=== PATIENT | male | born 1950 | race American Indian/Alaskan Native ===

== ENCOUNTER 2017-01-24 03:33 | Emergency (ER) | payer SELFPAY ==
--- NOTE | 2017-01-24 04:20 | XRay Report ---
FINAL REPORT PROCEDURE: XR CHEST ROUTINE 2V TECHNIQUE: PA and lateral chest radiographs were obtained. CPT 08374 HISTORY: swelling...GOPI COMPARISON: No prior studies are available for comparison. FINDINGS: Heart: Normal. Mediastinum/Vessels: Multiple sternal wires are present. Lungs/Pleural space: The lungs are clear without infiltrate, effusion or pneumothorax. Bony thorax: No acute osseous abnormality. Other: IMPRESSION: There is no evidence of an acute cardiopulmonary process..
[2017-01-24 04:45] LABS: Basophils % (Auto) 0.7 % (0.0-1.8); Eosinophils % (Auto) 1.3 % (0.0-4.3); Hemoglobin 15.1 gm/dl (11.8-15.2); Mean Corpuscular HGB Conc 34 % (32-34); Mean Corpuscular Hemoglobin 33 pg (28-32); Mean Corpuscular Volume 99 fl (84-94); Platelet Count 144 K/mm3 (140-440); Red Blood Count 4.54 M/mm3 (3.65-5.03); White Blood Count 4.8 K/mm3 (4.5-11.0)
[2017-01-24 05:05] LABS: Alanine Aminotransferase 29 units/L (7-56); Albumin 4.3 g/dL (3.9-5); Albumin/Globulin Ratio 0.9 %; Alkaline Phosphatase 116 units/L (35-129); Anion Gap 21 mmol/L; BUN/Creatinine Ratio 12.72; Blood Urea Nitrogen 14 mg/dL (9-20); Calcium 10.1 mg/dL (8.4-10.2); Carbon Dioxide 26 mmol/L (22-30); Glucose 105 mg/dL (75-100); Potassium 4.2 mmol/L (3.6-5.0); Sodium 136 mmol/L (137-145); Total Protein 9.2 g/dL (6.3-8.2)
[2017-01-24] MEDS ORDERED: DELTASONE PO ONE (16:45)
[2017-01-24] MEDS ORDERED: DUONEB *Not for PRN Use IH ONE (16:45)
--- NOTE | 2017-01-24 16:47 | Emergency Department Report ---
HPI - General Chief Complaint: Dyspnea/Respdistress Time Seen by Provider: 01/24/17 16:39 - HPI HPI: This is a 66 year-old male presents the emergency department with complaint of a one to 2 day history of some shortness of breath and wheezing. The patient also says that the night before last he had some swelling of his tongue that made it feel "heavy" and that he had some trouble swallowing at that time. However the majority of his symptoms have improved if not resolved. He did not take anything for his symptoms presentation. He is a tobacco smoker. There is some mention on his chart of possible diagnosis of COPD the patient is not aware of this. He does not have any inhaler or breathing machine at home. He gets his primary care through the [facility] and last saw them about 3 months ago. He denies any fever, chest pain, back pain, nausea, vomiting or diaphoresis. No recent travel or sick contacts at home. ED Past Medical Hx - Past Medical History Previous Medical History?: Yes Hx Hypertension: Yes Hx COPD: Yes - Surgical History Past Surgical History?: Yes Additional Surgical History: valve replacement - Social History Smoking Status: Current Every Day Smoker Substance Use Type: Alcohol - Medications Home Medications: Home Medications Medication Instructions Recorded Confirmed Last Taken Type HYDROcodone/APAP 5-325 [[place] 1 each PO Q6HR PRN #20 tablet 01/23/14 Unknown Rx 5/325] ALBUTEROL Inhaler [ProAir HFA 2 puff IH QID PRN #1 inhalation 01/24/17 Unknown Rx Inhaler] Benzonatate [Tessalon Perles] 100 mg PO Q8HR PRN #20 capsule 01/24/17 Unknown Rx predniSONE [Deltasone] 20 mg PO QDAY #4 tab 01/24/17 Unknown Rx ED Review of Systems ROS: Stated complaint: DIFFICULTY SWALLOWING Other details as noted in HPI Comment: All other systems reviewed and negative Constitutional: denies: chills, fever Eyes: denies: eye pain, eye discharge, vision change ENT: denies: ear pain, throat pain Respiratory: cough, shortness of breath, wheezing Cardiovascular: denies: chest pain, palpitations, edema Gastrointestinal: denies: abdominal pain, nausea, diarrhea Genitourinary: denies: urgency, dysuria Musculoskeletal: denies: back pain, joint swelling, arthralgia Skin: denies: rash, lesions Neurological: denies: headache, weakness, paresthesias Physical Exam - Physical Exam Vital Signs: Vital Signs 01/24/17 01/24/17 03:43 16:33 Temperature 98.4 F Pulse Rate 95 H 65 Respiratory 18 16 Rate Blood Pressure 109/75 Blood Pressure 135/84 [Left] O2 Sat by Pulse 97 100 Oximetry Physical Exam: GENERAL: The patient is well-developed well-nourished. HENT: Normocephalic. Atraumatic. Patient has moist mucous membranes. EYES: Extraocular motions are intact. Pupils equal reactive to light bilaterally. NECK: Supple. Trachea is midline. CHEST/LUNGS: Mild expiratory wheezing. No tachypnea or accessory muscle use. A productive sounding cough is heard intermittently during examination. There is no respiratory distress noted. HEART/CARDIOVASCULAR: Regular. There is no tachycardia. There is no gallop rub or murmur. ABDOMEN: Abdomen is soft, nontender. Patient has normal bowel sounds. There is no abdominal distention. SKIN: Skin is warm and dry. No edema. NEURO: The patient is awake, alert, and oriented. The patient is cooperative. The patient has no focal neurologic deficits. The patient has normal speech. MUSCULOSKELETAL: There is no tenderness or deformity. There is no limitation range of motion. There is no evidence of acute injury. ED Course Vital Signs 01/24/17 01/24/17 03:43 16:33 Temperature 98.4 F Pulse Rate 95 H 65 Respiratory 18 16 Rate Blood Pressure 109/75 Blood Pressure 135/84 [Left] O2 Sat by Pulse 97 100 Oximetry ED Medical Decision Making - Lab Data Result diagrams: 01/24/17 04:29 01/24/17 04:29 - Radiology Data Radiology results: image reviewed interpreted by me: Chest x-ray does not show any acute process. There are no pleural effusions, obvious pneumonia and there is no pneumothorax. - Medical Decision Making This is a 66-year-old male who is a current tobacco smoker who presents with some complaints of shortness of breath and possible tongue swelling that have since resolved if not greatly improved but he came to the emergency department to "find out what happened." He does not appear to be in any respiratory distress. He does not appear to have any current angioedema or any anaphylaxis. Vital signs stable throughout his ED course. Labs unremarkable. Chest x-ray does not show any pneumonia, pleural effusions or any acute process. He was given a breathing treatment and a dose of steroids and upon reevaluation he is feeling greatly improved. He appears safe for discharge home at this time. He has follow-up through the [facility]. He has been given anticough medication, steroids and an albuterol inhaler and has been encouraged to return to the ER with any worsening of symptoms or any acute distress. - Differential Diagnosis COPD, asthma, pneumonia, CHF Critical Care Time: No Critical care attestation.: If time is entered above; I have spent that time in minutes in the direct care of this critically ill patient, excluding procedure time. ED Disposition Clinical Impression: COPD with exacerbation, Bronchospasm, Tobacco abuse Disposition: TO HOME OR SELFCARE Is pt being admited?: No Condition: Stable Instructions: How to Stop Smoking (ED), Chronic Obstructive Pulmonary Disease ( ED) Additional Instructions: Please follow-up with your primary care physician soon as possible. Return to the emergency Department with any worsening of your symptoms or any acute distress. Please try and quit smoking. Prescriptions: ALBUTEROL Inhaler [ProAir HFA Inhaler] 2 puff IH QID PRN #1 inhalation PRN Reason: Shortness Of Breath Benzonatate [Tessalon Perles] 100 mg PO Q8HR PRN #20 capsule PRN Reason: Cough predniSONE [Deltasone] 20 mg PO QDAY #4 tab Referrals: PRIMARY CARE, [Primary Care Provider] - [facility] Time of Disposition: 18:25
--- NOTE | 2017-01-24 18:15 | Ultrasound Report ---
FINAL REPORT PROCEDURE: US ABDOMEN LIMITED TECHNIQUE: Real-time sonography was performed of the right upper quadrant with image documentation. CPT 95501 HISTORY: Hyperbilirubinemia COMPARISON: No prior studies are available for comparison. FINDINGS: Exam of the right upper quadrant shows multiple moderate to large gallstones within the gallbladder casting dense acoustic shadows.. Gallbladder is mildly contracted. Gallbladder wall is not thickened. No ascites is seen. Common bile duct is normal caliber measuring 3.4 millimeters. The intrahepatic ducts are not distended. Liver echogenicity appear normal. Visualized portions of the pancreas are unremarkable. The right kidney showed no abnormalities measuring 10.4 centimeters in greatest length.. IMPRESSION: Cholelithiasis. No other abnormalities are seen.
[2017-01-24 18:28] VITALS: BP 115/77
== END 2017-01-24 18:40 | disposition home or self-care (01) ==
LOC: ED 03:33
DX: J44.1 Chronic obstructive pulmonary disease with (acute) exacerbation (principal); F17.200 Nicotine dependence, unspecified, uncomplicated; J98.01 Acute bronchospasm; I10 Essential (primary) hypertension
CPT/HCPCS: 36415; 71020; 76705; 80053; 85025; 94640; 99284; J7512

== ENCOUNTER 2017-11-05 11:13 | Inpatient (IN) | payer MEDICARE, OTHER ==
[2017-11-05] MEDS ORDERED: NACL 0.9% 1000 ML 1,000 ML IV ONE ×4 (12:19→14:00)
--- NOTE | 2017-11-05 12:23 | Emergency Department Report ---
ED Shortness of Breath HPI - General Chief Complaint: Dyspnea/Respdistress Stated Complaint: SHORTNESS OF BREATH Time Seen by Provider: 11/05/17 12:19 Source: patient, EMS Mode of arrival: Stretcher Limitations: No Limitations - History of Present Illness Initial Comments: Patient is a 67-year-old male who presents to emergency room with complaints of shortness of breath and abdominal pain 2 days. Patient states he does get discharged from [place] this week for diastolic CHF patient is currently on several toe for PE. Patient states she took a laxative yesterday because of abdominal pain and started feeling shortness of breath or abdominal pain weakness and dizziness. Patient states all the symptoms are worsening. Patient called EMS to be transported to the ER. Patient was found to be hypotensive. . Patient states his weakness is worsening MD Complaint: shortness of breath -: Sudden Severity: severe Pain Scale: 10 Quality: sharp Consistency: constant Improves With: rest, upright position Worsens With: eating, medication, movement Known History Of: congestive heart failure - Related Data Home Medications Medication Instructions Recorded Confirmed Last Taken Aspirin [Aspirin BABY CHEW TAB] 81 mg PO DAILY 11/05/17 11/05/17 Unknown Bisoprolol [Zebeta] 5 mg PO DAILY 11/05/17 11/05/17 Unknown Pantoprazole Sodium 40 mg PO QAM 11/05/17 11/05/17 Unknown Potassium Chloride 10 meq PO DAILY 11/05/17 11/05/17 Unknown Rivaroxaban [Xarelto] 20 mg PO DAILY 11/05/17 11/05/17 Unknown Torsemide [Demadex] 20 mg PO DAILY 11/05/17 11/05/17 Unknown Allergies Allergy/AdvReac Type Severity Reaction Status Date / Time No Known Allergies Allergy Verified 01/23/14 23:59 ED Review of Systems ROS: Stated complaint: SHORTNESS OF BREATH Other details as noted in HPI Constitutional: denies: chills, fever Eyes: denies: eye pain, eye discharge, vision change ENT: denies: ear pain, throat pain Respiratory: shortness of breath, SOB with exertion, SOB at rest. denies: cough , wheezing Cardiovascular: denies: chest pain, palpitations Endocrine: no symptoms reported Gastrointestinal: abdominal pain. denies: nausea, diarrhea Genitourinary: denies: urgency, dysuria Musculoskeletal: denies: back pain, joint swelling, arthralgia Skin: denies: rash, lesions Neurological: denies: headache, weakness, paresthesias Psychiatric: denies: anxiety, depression Hematological/Lymphatic: denies: easy bleeding, easy bruising ED Past Medical Hx - Past Medical History Previous Medical History?: Yes Hx Hypertension: Yes Hx Congestive Heart Failure: Yes Hx COPD: Yes Additional medical history: MITRAL VALVE STENOSIS, CHF, GERD, HCV - Surgical History Past Surgical History?: Yes Additional Surgical History: valve replacement - Family History Family history: hypertension - Social History Smoking Status: Current Every Day Smoker Substance Use Type: None - Medications Home Medications: Home Medications Medication Instructions Recorded Confirmed Last Taken Type Aspirin [Aspirin BABY CHEW TAB] 81 mg PO DAILY 11/05/17 11/05/17 Unknown History Bisoprolol [Zebeta] 5 mg PO DAILY 11/05/17 11/05/17 Unknown History Pantoprazole Sodium 40 mg PO QAM 11/05/17 11/05/17 Unknown History Potassium Chloride 10 meq PO DAILY 11/05/17 11/05/17 Unknown History Rivaroxaban [Xarelto] 20 mg PO DAILY 11/05/17 11/05/17 Unknown History Torsemide [Demadex] 20 mg PO DAILY 11/05/17 11/05/17 Unknown History ED Physical Exam - General Limitations: No Limitations General appearance: alert, in no apparent distress - Head Head exam: Present: atraumatic, normocephalic - Eye Eye exam: Present: normal appearance, PERRL, EOMI, other - ENT ENT exam: Present: mucous membranes moist - Neck Neck exam: Present: normal inspection - Respiratory Respiratory exam: Present: normal lung sounds bilaterally. Absent: respiratory distress - Cardiovascular Cardiovascular Exam: Present: regular rate, normal rhythm. Absent: systolic murmur, diastolic murmur, rubs, gallop - GI/Abdominal GI/Abdominal exam: Present: soft, tenderness (gen ttp), normal bowel sounds - Rectal Rectal exam: Present: normal rectal tone, heme (+) stool, black stool, hemorrhoids, prostate enlargement - Extremities Exam Extremities exam: Present: normal inspection, full ROM - Back Exam Back exam: Present: normal inspection - Neurological Exam Neurological exam: Present: alert, oriented X3 - Psychiatric Psychiatric exam: Present: normal affect, normal mood - Skin Skin exam: Present: warm, dry, intact, normal color. Absent: rash ED Course Vital Signs 11/05/17 11/05/17 11/05/17 12:01 12:08 12:16 Temperature 98.4 F Pulse Rate 73 100 H 99 H Respiratory 21 32 H 21 Rate Blood Pressure 85/49 76/41 Blood Pressure [Left] O2 Sat by Pulse 99 97 98 Oximetry 11/05/17 11/05/17 11/05/17 12:32 12:43 12:45 Temperature Pulse Rate 99 H 97 H 99 H Respiratory 28 H 18 29 H Rate Blood Pressure 73/48 Blood Pressure 76/41 [Left] O2 Sat by Pulse Oximetry 11/05/17 11/05/17 11/05/17 13:00 13:24 13:44 Temperature 97.9 F Pulse Rate 95 H 96 H Respiratory 33 H Rate Blood Pressure 78/51 73/48 Blood Pressure [Left] O2 Sat by Pulse 96 Oximetry 11/05/17 11/05/17 11/05/17 13:45 13:47 13:57 Temperature Pulse Rate 93 H 76 Respiratory 23 22 Rate Blood Pressure 88/61 Blood Pressure 85/41 88/61 [Left] O2 Sat by Pulse 97 97 Oximetry 11/05/17 11/05/17 11/05/17 14:00 14:15 14:17 Temperature Pulse Rate 94 H Respiratory 29 H 25 H Rate Blood Pressure 67/36 72/41 Blood Pressure 77/51 [Left] O2 Sat by Pulse 100 Oximetry 11/05/17 11/05/17 11/05/17 14:30 14:45 14:58 Temperature 97.4 F L Pulse Rate 94 H Respiratory 26 H 23 Rate Blood Pressure 79/46 79/47 76/46 Blood Pressure [Left] O2 Sat by Pulse 100 94 Oximetry 11/05/17 11/05/17 11/05/17 15:00 15:10 15:19 Temperature 97.5 F L Pulse Rate 98 H 95 H Respiratory 21 23 Rate Blood Pressure 85/46 81/50 Blood Pressure 85/50 [Left] O2 Sat by Pulse 100 Oximetry - Reevaluation(s) Reevaluation #1: Patient found to be severely anemic and have an elevated lactic acid. We will run sepsis protocol. 11/05/17 13:02 Reevaluation #2: After aggressive hydration and patient now on pressors lactic acid is higher. Patient's PRBCs and now ready and we will commence transfusion. 11/05/17 15:00 Reevaluation #3: Hospitalist contacted for admission. Hospitalist, Dr corea to assume care of the patient. Discussed plan of care with patient and patient agrees to admission and plan of care. Discussed all results with patient 11/05/17 15:12 - Consultations Consultation #1: GI - dr grewal. consulted for eval and tx of gi bleed/ 11/05/17 15:20 ED Medical Decision Making - Lab Data Result diagrams: 11/05/17 12:16 11/05/17 12:16 - EKG Data -: EKG Interpreted by Sc EKG shows normal: sinus rhythm, axis, intervals, QRS complexes, ST-T waves Rate: normal - EKG Data Interpretation: [facility] Critical Care Time: Yes Critical care attestation.: If time is entered above; I have spent that time in minutes in the direct care of this critically ill patient, excluding procedure time. Critical Care Time: 55 minutes spent with patient for critical care time ED Disposition Clinical Impression: Lactic acidosis, Melena, Anemia, Acute renal insufficiency, Dizziness, Severe anemia Hypotension Qualifiers: Hypotension type: unspecified hypotension type Qualified Code(s): I95.9 - Hypotension, unspecified GI bleed Qualifiers: GI bleed type/associated pathology: melena Qualified Code(s): K92.1 - Melena Disposition: -09 OP ADMIT IP TO THIS HOSP Is pt being admited?: Yes Does the pt Need Aspirin: No Condition: Critical Time of Disposition: 13:57
[2017-11-05 12:40] LABS: Basophils # (Auto) 0.1 K/mm3 (0.0-0.1); Basophils % (Auto) 0.6 % (0.0-1.8); Eosinophils % (Auto) 0.2 % (0.0-4.3); Hemoglobin 6.3 gm/dl (11.8-15.2); Lymphocytes # (Auto) 1.3 K/mm3 (1.2-5.4); Lymphocytes % (Auto) 7.5 % (13.4-35.0); Mean Corpuscular HGB Conc 32 % (32-34); Mean Corpuscular Hemoglobin 35 pg (28-32); Mean Corpuscular Volume 108 fl (84-94); Monocytes # (Auto) 1.6 K/mm3 (0.0-0.8); Monocytes % (Auto) 9.5 % (0.0-7.3); Platelet Count 307 K/mm3 (140-440); Red Blood Count 1.82 M/mm3 (3.65-5.03); Red Cell Distribution Width 16.6 % (13.2-15.2)
[2017-11-05 12:42] LABS: Hematocrit 19.7 % (35.5-45.6)
[2017-11-05 12:49] LABS: Albumin 3.6 g/dL (3.9-5); Calcium 8.9 mg/dL (8.4-10.2)
[2017-11-05 12:57] LABS: Bilirubin,Urine NEG (Negative); Blood,Urine NEG (Negative); Color,Urine Yellow (Yellow); Hyaline Casts,Urine 29 /LPF; Protein,Urine <15 mg/dL mg/dL (Negative)
[2017-11-05] MEDS ORDERED: ZOSYN/NS 2.25 GM/50ML 2.25 GM/50 ML BAG IV SCH (13:00)
[2017-11-05] MEDS ORDERED: ZOFRAN ONE (13:01)
[2017-11-05] MEDS ORDERED: ZOFRAN IV ONE (13:10)
[2017-11-05 13:20] LABS: Creatine Kinase MB 1.3 ng/mL (0.0-4.0)
[2017-11-05] MEDS ORDERED: NACL 0.9% 500 ML 500 ML IV ONE ×2 (14:03→21:06)
--- NOTE | 2017-11-05 14:03 | Cat Scan Report ---
FINAL REPORT EXAM: CT ABDOMEN PELVIS WO CON HISTORY: abd pain TECHNIQUE: CT examination of the ABDOMEN without IV contrast CT examination of the PELVIS without IV contrast PRIORS: Abdomen ultrasound 01/24/2017 FINDINGS: Small bilateral pleural effusions layer posteriorly with adjacent slight atelectasis and/or pneumonitis. Cardiac density may be a prosthetic valve. Coronary artery calcification. Degenerative change in the regional skeleton. No evidence of acute fracture. Borderline hepatomegaly with sagittal dimension of 17.7 cm. No evidence of focal liver lesion. Multiple calcified and gaseous gallstones in the gallbladder lumen. No evidence of other biliary pathology. Normal noncontrast appearance of the adrenals, pancreas, and spleen. Normal caliber abdominal aorta with severe calcified atherosclerotic plaque in the aorta and its branches. Normal caliber IVC. The exam is limited from a paucity of natural intra-abdominal fat, and lack of contrast, to separate adjacent organs and structures. The ureters are largely obscured by adjacent soft tissues. Intestinal loops are also difficult to visualize separately. No renal calculus or hydronephrosis. Intact abdominal wall. No visible retroperitoneal adenopathy. No visible mesenteric mass. Normal-appearing stomach and duodenum. No definite small bowel distention in the abdomen and pelvis. Scattered prominence of small bowel gas, primarily in the pelvis, may reflect paralytic ileus. No pelvic free fluid. Normal-appearing terminal ileum and visible portion of the appendix. Enlarged prostate with mass effect on the urinary bladder base. No focal urinary bladder abnormality. Normal-appearing seminal vesicles. Scattered prominence of stool from cecum to rectum suggestive of constipation. Prominent gas in rectum, sigmoid colon, transverse colon, and cecum may reflect paralytic ileus. IMPRESSION: Small bilateral pleural effusions layering posteriorly with adjacent slight atelectasis and/or pneumonitis Prominent bowel gas throughout small and large intestine suspicious for paralytic ileus and/or enteritis Coronary artery calcification Borderline hepatomegaly without focal lesion Cholelithiasis Enlarged prostate with mass effect on the urinary bladder base Prominent stool may reflect constipation
[2017-11-05 14:22] LABS: INR 2.96 (0.87-1.13)
[2017-11-05] MEDS ORDERED: LEVOPHED DRIP 4 MG/NS 250 ML 4 MG/250 ML BAG IV ONE ×2 (14:25→14:28)
[2017-11-05 17:24] LABS: Hematocrit 23.4 % (35.5-45.6); Hemoglobin 7.6 gm/dl (11.8-15.2)
--- NOTE | 2017-11-05 19:50 | History and Physical Report ---
History of Present Illness Date of examination: 11/05/17 Date of admission: 11/05/17 15:40 Chief complaint: Chief complaint: Black tarry stools for 2 days History of present illness: History of Present Illness: 67-year-old male presents for emergency room because of black stools and shortness of breath for 2 days. Patient was recently treated at [facility] for diastolic heart failure and pulmonary embolism. Patient is on XARELTO for the pulmonary embolism. Patient noticed black stools for the last 2 days. Patient is a poor historian. Patient complains of dizziness and weakness especially was standing. No chest pain. History of CHF and pulmonary embolism and hypertension present. No recent travel. Past Medical History Previous Medical History?: Yes Hx Hypertension: Yes Hx Congestive Heart Failure: Yes Hx COPD: Yes Additional medical history: MITRAL VALVE STENOSIS, CHF, GERD, HCV Surgical History Past Surgical History?: Yes Additional Surgical History: valve replacement Family History Family history: hypertension Social History Smoking Status: Current Every Day Smoker Substance Use Type: None Medications Home Medications: Home Medications Medication Instructions Recorded Confirmed Last Taken Type Aspirin [Aspirin BABY CHEW TAB] 81 mg PO DAILY 11/05/17 11/05/17 Unknown History Bisoprolol [Zebeta] 5 mg PO DAILY 11/05/17 11/05/17 Unknown History Pantoprazole Sodium 40 mg PO QAM 11/05/17 11/05/17 Unknown History Potassium Chloride 10 meq PO DAILY 11/05/17 11/05/17 Unknown History Rivaroxaban [Xarelto] 20 mg PO DAILY 11/05/17 11/05/17 Unknown History Torsemide [Demadex] 20 mg PO DAILY 11/05/17 11/05/17 Unknown History Review of Systems ROS: Stated complaint: SHORTNESS OF BREATH Other details as noted in HPI Constitutional: denies: chills, fever Eyes: denies: eye pain, eye discharge, vision change ENT: denies: ear pain, throat pain Respiratory: shortness of breath, SOB with exertion, SOB at rest. denies: cough , wheezing Cardiovascular: denies: chest pain, palpitations Endocrine: no symptoms reported Gastrointestinal: abdominal pain. denies: nausea, diarrhea Genitourinary: denies: urgency, dysuria Musculoskeletal: denies: back pain, joint swelling, arthralgia Skin: denies: rash, lesions Neurological: denies: headache, weakness, paresthesias Psychiatric: denies: anxiety, depression Hematological/Lymphatic: denies: easy bleeding, easy bruising Medications and Allergies Allergies Allergy/AdvReac Type Severity Reaction Status Date / Time No Known Allergies Allergy Verified 01/23/14 23:59 Home Medications Medication Instructions Recorded Confirmed Last Taken Type Aspirin [Aspirin BABY CHEW TAB] 81 mg PO DAILY 11/05/17 11/05/17 Unknown History Bisoprolol [Zebeta] 5 mg PO DAILY 11/05/17 11/05/17 Unknown History Pantoprazole Sodium 40 mg PO QAM 11/05/17 11/05/17 Unknown History Potassium Chloride 10 meq PO DAILY 11/05/17 11/05/17 Unknown History Rivaroxaban [Xarelto] 20 mg PO DAILY 11/05/17 11/05/17 Unknown History Torsemide [Demadex] 20 mg PO DAILY 11/05/17 11/05/17 Unknown History Active Meds: Active Medications Norepinephrine (Levophed Drip 4 Mg/Ns 250 Ml) 4 mg in 250 mls @ 7.5 mls/hr IV TITR ONE; Protocol Stop: 11/06/17 23:44 Last Titration: 11/05/17 15:35 Dose: 10 mcg/min, 37.5 mls/hr Exam - Constitutional Vitals: Temp Pulse Resp BP Pulse Ox 97.5 F L 100 H 21 98/64 100 11/05/17 16:12 11/05/17 17:45 11/05/17 17:45 11/05/17 17:45 11/05/17 17:45 General appearance: Present: no acute distress, well-nourished - EENT Eyes: Present: PERRL ENT: hearing intact, clear oral mucosa - Neck Neck: Present: supple, normal ROM - Respiratory Respiratory effort: normal Respiratory: bilateral: CTA - Cardiovascular Rhythm: regular Heart Sounds: Present: S1 & S2. Absent: rub, click - Extremities Extremities: no ischemia, pulses symmetrical, No edema Peripheral Pulses: within normal limits - Abdominal General gastrointestinal: Present: soft, non-tender, non-distended, normal bowel sounds, other (occult blood positive) Male genitourinary: Present: normal - Rectal Rectal Exam: stool bloody (occult blood positive) - Integumentary Integumentary: Present: clear, warm, dry - Musculoskeletal Musculoskeletal: gait normal, strength equal bilaterally - Psychiatric Psychiatric: appropriate mood/affect, intact judgment & insight - Neurologic Neurologic: CNII-XII intact, moves all extremities - Allied Health Allied health notes reviewed: nursing, case management Results - Labs CBC & Chem 7: 11/05/17 17:04 11/05/17 12:16 Labs: Laboratory Last Values WBC 17.0 K/mm3 (4.5-11.0) H 11/05/17 12:16 RBC 1.82 M/mm3 (3.65-5.03) L 11/05/17 12:16 Hgb 7.6 gm/dl (11.8-15.2) L 11/05/17 17:04 Hct 23.4 % (35.5-45.6) L 11/05/17 17:04 MCV 108 fl (84-94) H 11/05/17 12:16 MCH 35 pg (28-32) H 11/05/17 12:16 MCHC 32 % (32-34) 11/05/17 12:16 RDW 16.6 % (13.2-15.2) H 11/05/17 12:16 Plt Count 307 K/mm3 (140-440) 11/05/17 12:16 Lymph % (Auto) 7.5 % (13.4-35.0) L 11/05/17 12:16 [place] % (Auto) 9.5 % (0.0-7.3) H 11/05/17 12:16 Eos % (Auto) 0.2 % (0.0-4.3) 11/05/17 12:16 Baso % (Auto) 0.6 % (0.0-1.8) 11/05/17 12:16 Lymph # 1.3 K/mm3 (1.2-5.4) 11/05/17 12:16 [place] # 1.6 K/mm3 (0.0-0.8) H 11/05/17 12:16 Eos # 0.0 K/mm3 (0.0-0.4) 11/05/17 12:16 Baso # 0.1 K/mm3 (0.0-0.1) 11/05/17 12:16 Seg Neutrophils % 82.2 % (40.0-70.0) H 11/05/17 12:16 Seg Neutrophils # 14.0 K/mm3 (1.8-7.7) H 11/05/17 12:16 PT 32.9 Sec. (12.2-14.9) H 11/05/17 12:23 INR 2.96 (0.87-1.13) H 11/05/17 12:23 APTT 39.0 Sec. (24.2-36.6) H 11/05/17 12:23 D-Dimer 136.11 ng/mlDDU (0-234) 11/05/17 12:23 VBG pH 7.371 (7.320-7.420) 11/05/17 13:03 Sodium 131 mmol/L (137-145) L 11/05/17 12:16 Potassium 4.7 mmol/L (3.6-5.0) 11/05/17 12:16 Chloride 91.5 mmol/L (98-107) L 11/05/17 12:16 Carbon Dioxide 23 mmol/L (22-30) 11/05/17 12:16 Anion Gap 21 mmol/L 11/05/17 12:16 BUN 77 mg/dL (9-20) H 11/05/17 12:16 Creatinine 1.9 mg/dL (0.8-1.5) H 11/05/17 12:16 Estimated GFR 43 ml/min 11/05/17 12:16 BUN/Creatinine Ratio 41 % 11/05/17 12:16 Glucose 146 mg/dL (75-100) H 11/05/17 12:16 Lactic Acid 3.40 mmol/L (0.7-2.0) H* 11/05/17 17:04 Calcium 8.9 mg/dL (8.4-10.2) 11/05/17 12:16 Total Bilirubin 2.40 mg/dL (0.1-1.2) H 11/05/17 12:16 AST 50 units/L (5-40) H 11/05/17 12:16 ALT 34 units/L (7-56) 11/05/17 12:16 Alkaline Phosphatase 85 units/L (35-129) 11/05/17 12:16 Total Creatine Kinase 39 units/L (55-170) L 11/05/17 12:23 CK-MB (CK-2) 1.3 ng/mL (0.0-4.0) 11/05/17 12:23 CK-MB (CK-2) Rel Index 3.3 (0-4) 11/05/17 12:23 Troponin T < 0.010 ng/mL (0.00-0.029) 11/05/17 12:23 Total Protein 7.2 g/dL (6.3-8.2) 11/05/17 12:16 Albumin 3.6 g/dL (3.9-5) L 11/05/17 12:16 Albumin/Globulin Ratio 1.0 % 11/05/17 12:16 Urine Color Yellow (Yellow) 11/05/17 12:46 Urine Turbidity Clear (Clear) 11/05/17 12:46 Urine pH 5.0 (5.0-7.0) 11/05/17 12:46 Ur Specific [place] 1.010 (1.003-1.030) 11/05/17 12:46 Urine Protein <15 mg/dl mg/dL (Negative) 11/05/17 12:46 Urine Glucose (UA) Neg mg/dL (Negative) 11/05/17 12:46 Urine Ketones Neg mg/dL (Negative) 11/05/17 12:46 Urine Blood Neg (Negative) 11/05/17 12:46 Urine Nitrite Neg (Negative) 11/05/17 12:46 Urine Bilirubin Neg (Negative) 11/05/17 12:46 Urine Urobilinogen 2.0 mg/dL (<2.0) 11/05/17 12:46 Ur Leukocyte Esterase Neg (Negative) 11/05/17 12:46 Urine WBC (Auto) 1.0 /HPF (0.0-6.0) 11/05/17 12:46 Urine RBC (Auto) 1.0 /HPF (0.0-6.0) 11/05/17 12:46 Hyaline Casts 29 /LPF 11/05/17 12:46 Blood Type B POSITIVE 11/05/17 13:03 Antibody Screen Negative 11/05/17 13:03 Crossmatch See Detail 11/05/17 13:03 - Imaging and Cardiology EKG: report reviewed (normal sinus rhythm and left atrial enlargement heart rate of 97, direct LVH by voltage criteria are H also EKG interpreted by me) Imaging and Cardiology: IMPRESSION: Small bilateral pleural effusions layering posteriorly with adjacent slight atelectasis and/or pneumonitis Prominent bowel gas throughout small and large intestine suspicious for paralytic ileus and/or enteritis Coronary artery calcification Borderline hepatomegaly without focal lesion Cholelithiasis Enlarged prostate with mass effect on the urinary bladder base Prominent stool may reflect constipation Assessment and Plan Advance Directives: Yes (full code) VTE prophylaxis?: Mechanical Plan of care discussed with patient/family: Yes - Patient Problems (1) Lower gastrointestinal hemorrhage Current Visit: Yes Status: Acute Plan to address problem: Patient initiated on 1 unit of packed red blood cells G I consult requested Patient initiated on IV Protonix drip EGD/colonoscopy (2) Acute renal insufficiency Current Visit: Yes Status: Acute Plan to address problem: IV fluids for now (3) Acute blood loss anemia Current Visit: Yes Status: Acute Plan to address problem: Transfuse 1 unit of blood Check H/H q8h and transfuse as necessary (4) Peptic ulcer disease Current Visit: Yes Status: Acute Plan to address problem: IV protonix EGD (5) CHF (congestive heart failure) Current Visit: Yes Status: Chronic Qualifiers: Heart failure type: combined systolic and diastolic Plan to address problem: Cont IV Lasix (6) Pulmonary embolism Current Visit: Yes Status: Chronic Qualifiers: Acute cor pulmonale presence: without acute cor pulmonale Plan to address problem: Was on Xarelto Stopped SCD's (7) Hyponatremia Current Visit: Yes Status: Acute Plan to address problem: Secondary to Torsemide (8) HTN (hypertension) Current Visit: Yes Status: Chronic Qualifiers: Hypertension type: essential hypertension Qualified Code(s): I10 - Essential (primary) hypertension Plan to address problem: Catapres patch if necessary (9) DVT prophylaxis Current Visit: Yes Status: Acute Plan to address problem: On scd's
--- NOTE | 2017-11-05 20:42 | Consultation ---
Referring Physician: Trevin Torres MD INDICATION: 1. Anemia. 2. GI bleed. HISTORY OF PRESENT ILLNESS: The patient is a 67-year-old white male with history of CHF, been seen by GI for possible GI bleed. The patient reports 2 days of progressive shortness of breath. Respiratory, the patient reports one week of black tarry stools. He reports no hematemesis. He reports some weakness. The patient was on Xarelto and aspirin. He denies any other specific GI complaints. He reports no history of upper GI bleeding in the past. PAST MEDICAL HISTORY: CHF. MEDICATIONS: See chart. ALLERGIES: No known drug allergies. SOCIAL HISTORY: Denies alcohol, tobacco, or IV drug use. FAMILY HISTORY: non-contributory REVIEW OF SYSTEMS: GENERAL: Reports mild weakness. HEENT: No visual complaints or tinnitus. PULMONARY: No shortness of breath. No cough. No chest pain. GASTROINTESTINAL: Reports black stools. All points of 13-point review of systems otherwise negative. PHYSICAL EXAMINATION: VITAL SIGNS: Temperature of 97.5, pulse 90, respirations 20, blood pressure 104/72. GENERAL: Fairly thin black male, in no acute distress. HEENT: Pupils equal, round, and reactive. PULMONARY: Rhonchi. CARDIOVASCULAR: Regular rhythm. Normal S1, S2. ABDOMEN: Positive bowel sounds, soft. SKIN: No obvious rashes. LABORATORY DATA: Labs pertinent for white count of 17, hemoglobin and hematocrit 6.3 and 19.7, platelet count of 307,000. Coags pertinent for PT 32.9. INR of 2.96, PTT of 39. Chem-7, sodium of 137, potassium 4.7, chloride 92, CO2 of 23, BUN and creatinine of 77 and 1.9. LFTs stable. ASSESSMENT AND PLAN: A 67-year-old black male presents with signs of gastrointestinal bleed given black stools, possible upper gastrointestinal source. PLAN: 1. Proton pump inhibitor two times a day. 2. Transfuse as ordered. 3. Reverse coagulopathy. 4. Plan esophagogastroduodenoscopy in noon. JOB# [id number] CAB/NTS MTDD
[2017-11-05] MEDS ORDERED: ZOFRAN IV PRN (21:04)
[2017-11-05] MEDS ORDERED: SODIUM CHLORIDE FLUSH SYRINGE 10 ML IV PRN (21:04)
[2017-11-05] MEDS ORDERED: MORPHINE IV PRN (21:05)
[2017-11-05] MEDS ORDERED: REGLAN IV PRN ×2 (21:05→21:11)
[2017-11-05] MEDS ORDERED: PROTONIX 80 MG in NACL 0.9% 100 ML IV SCH (22:00)
[2017-11-05] MEDS ORDERED: NACL 0.9% 1000 ML 1,000 ML IV SCH (22:00)
[2017-11-05 22:18] LABS: Hematocrit 21.9 % (35.5-45.6); Hemoglobin 7.2 gm/dl (11.8-15.2)
[2017-11-06 07:22] LABS: Basophils # (Auto) 0.1 K/mm3 (0.0-0.1); Basophils % (Auto) 0.4 % (0.0-1.8); Eosinophils % (Auto) 0.3 % (0.0-4.3); Hematocrit 23.2 % (35.5-45.6); Hemoglobin 7.6 gm/dl (11.8-15.2); Lymphocytes # (Auto) 1.8 K/mm3 (1.2-5.4); Lymphocytes % (Auto) 10.9 % (13.4-35.0); Mean Corpuscular HGB Conc 33 % (32-34); Mean Corpuscular Hemoglobin 31 pg (28-32); Mean Corpuscular Volume 96 fl (84-94); Monocytes # (Auto) 1.6 K/mm3 (0.0-0.8); Monocytes % (Auto) 9.6 % (0.0-7.3); Platelet Count 252 K/mm3 (140-440); Red Blood Count 2.41 M/mm3 (3.65-5.03); Red Cell Distribution Width 19.4 % (13.2-15.2)
[2017-11-06 07:38] LABS: Alanine Aminotransferase 28 units/L (7-56); BUN/Creatinine Ratio 47; Blood Urea Nitrogen 56 mg/dL (9-20); Calcium 8.1 mg/dL (8.4-10.2); Hemolysis Index 0
[2017-11-06] MEDS ORDERED: WATER FOR IRRIG STERILE IR ONE ×2 (10:19→14:33)
[2017-11-06] MEDS ORDERED: NACL 0.9% 1000 ML 1,000 ML IV SCH (11:00)
[2017-11-06] MEDS ORDERED: NACL 0.9% 500 ML 500 ML IV NR ×2 (11:08→11:12)
[2017-11-06] MEDS: PROTONIX IV SCH ×2 (11:45→22:50)
--- NOTE | 2017-11-06 12:27 | Consultation ---
History of Present Illness - Reason for Consult Consult date: 11/06/17 GI Bleed/Hypotension Requesting physician: MEIR MARSHALL - History of Present Illness 67 male admitted with GI bleed. Patient recently diagnosed with PE and treated with xarelto. Came in with abdominal pain and found to have anemia with tarry stools. Patient was also hypotensive. No central line placed but placed on levophed in ED. Awake and alert. GI consulted and per report, scheduled for endoscopy today. Transfused 2 units of PRBC's but not give any FFP and INR was 2.96. Past History Past Medical History: GERD, pulmonary embolism Social history: no significant social history Family history: no significant family history Medications and Allergies Allergies Allergy/AdvReac Type Severity Reaction Status Date / Time No Known Allergies Allergy Verified 01/23/14 23:59 Home Medications Medication Instructions Recorded Confirmed Last Taken Type Aspirin [Aspirin BABY CHEW TAB] 81 mg PO DAILY 11/05/17 11/05/17 Unknown History Bisoprolol [Zebeta] 5 mg PO DAILY 11/05/17 11/05/17 Unknown History Pantoprazole Sodium 40 mg PO QAM 11/05/17 11/05/17 Unknown History Potassium Chloride 10 meq PO DAILY 11/05/17 11/05/17 Unknown History Rivaroxaban [Xarelto] 20 mg PO DAILY 11/05/17 11/05/17 Unknown History Torsemide [Demadex] 20 mg PO DAILY 11/05/17 11/05/17 Unknown History Active Meds: Active Medications Acetaminophen (Tylenol) 650 mg PO Q4H PRN PRN Reason: Pain MILD(1-3)/Fever >100.5/ Norepinephrine (Levophed Drip 4 Mg/Ns 250 Ml) 4 mg in 250 mls @ 7.5 mls/hr IV TITR ONE; Protocol Stop: 11/06/17 23:44 Last Titration: 11/05/17 15:35 Dose: 10 mcg/min, 37.5 mls/hr Sodium Chloride (Nacl 0.9% 1000 Ml) 1,000 mls @ 50 mls/hr IV DIRECT NIK Sodium Chloride (Nacl 0.9% 500 Ml) 500 mls @ 0 mls/hr IV ONCE NR Stop: 11/06/17 23:59 Sodium Chloride (Nacl 0.9% 500 Ml) 500 mls @ 0 mls/hr IV ONCE NR Stop: 11/06/17 23:59 Metoclopramide HCl (Reglan) 5 mg IV Q6H PRN PRN Reason: Nausea And Vomiting Morphine Sulfate (Morphine) 2 mg IV Q4H PRN PRN Reason: Pain, Moderate (4-6) Ondansetron HCl (Zofran) 4 mg IV Q8H PRN PRN Reason: Nausea And Vomiting Pantoprazole Sodium (Protonix) 40 mg IV BID NIK Sodium Chloride (Sodium Chloride Flush Syringe 10 Ml) 10 ml IV BID NIK Sodium Chloride (Sodium Chloride Flush Syringe 10 Ml) 10 ml IV PRN PRN PRN Reason: LINE FLUSH Review of Systems All systems: negative Exam - Constitutional Vitals: Temp Pulse Resp BP Pulse Ox 98.2 F 96 H 21 100/66 95 11/06/17 08:00 11/06/17 08:51 11/06/17 08:51 11/06/17 08:51 11/06/17 08:51 General appearance: Present: no acute distress, well-nourished - EENT Eyes: Present: PERRL, EOM intact ENT: hearing intact - Respiratory Respiratory effort: normal Respiratory: bilateral: CTA Results - Labs CBC & Chem 7: 11/06/17 06:57 11/06/17 06:57 Labs: Abnormal lab results 11/05/17 11/05/17 11/05/17 Range/Units 12:16 12:16 12:23 WBC 17.0 H (4.5-11.0) K/mm3 RBC 1.82 L (3.65-5.03) M/mm3 Hgb 6.3 L (11.8-15.2) gm/dl Hct 19.7 L* (35.5-45.6) % MCV 108 H (84-94) fl MCH 35 H (28-32) pg RDW 16.6 H (13.2-15.2) % Lymph % (Auto) 7.5 L (13.4-35.0) % [place] % (Auto) 9.5 H (0.0-7.3) % [place] # 1.6 H (0.0-0.8) K/mm3 Seg Neutrophils % 82.2 H (40.0-70.0) % Seg Neutrophils # 14.0 H (1.8-7.7) K/mm3 PT (12.2-14.9) Sec. INR (0.87-1.13) APTT (24.2-36.6) Sec. Sodium 131 L (137-145) mmol/L Chloride 91.5 L (98-107) mmol/L BUN 77 H (9-20) mg/dL Creatinine 1.9 H (0.8-1.5) mg/dL Glucose 146 H (75-100) mg/dL Lactic Acid 4.70 H* (0.7-2.0) mmol/L Calcium (8.4-10.2) mg/dL Total Bilirubin 2.40 H (0.1-1.2) mg/dL AST 50 H (5-40) units/L Total Creatine Kinase (55-170) units/L Total Protein (6.3-8.2) g/dL Albumin 3.6 L (3.9-5) g/dL Crossmatch 11/05/17 11/05/17 11/05/17 Range/Units 12:23 12:23 13:03 WBC (4.5-11.0) K/mm3 RBC (3.65-5.03) M/mm3 Hgb (11.8-15.2) gm/dl Hct (35.5-45.6) % MCV (84-94) fl MCH (28-32) pg RDW (13.2-15.2) % Lymph % (Auto) (13.4-35.0) % [place] % (Auto) (0.0-7.3) % [place] # (0.0-0.8) K/mm3 Seg Neutrophils % (40.0-70.0) % Seg Neutrophils # (1.8-7.7) K/mm3 PT 32.9 H (12.2-14.9) Sec. INR 2.96 H (0.87-1.13) APTT 39.0 H (24.2-36.6) Sec. Sodium (137-145) mmol/L Chloride (98-107) mmol/L BUN (9-20) mg/dL Creatinine (0.8-1.5) mg/dL Glucose (75-100) mg/dL Lactic Acid (0.7-2.0) mmol/L Calcium (8.4-10.2) mg/dL Total Bilirubin (0.1-1.2) mg/dL AST (5-40) units/L Total Creatine Kinase 39 L (55-170) units/L Total Protein (6.3-8.2) g/dL Albumin (3.9-5) g/dL Crossmatch See Detail 11/05/17 11/05/17 11/05/17 Range/Units 14:17 17:04 17:04 WBC (4.5-11.0) K/mm3 RBC (3.65-5.03) M/mm3 Hgb 7.6 L (11.8-15.2) gm/dl Hct 23.4 L (35.5-45.6) % MCV (84-94) fl MCH (28-32) pg RDW (13.2-15.2) % Lymph % (Auto) (13.4-35.0) % [place] % (Auto) (0.0-7.3) % [place] # (0.0-0.8) K/mm3 Seg Neutrophils % (40.0-70.0) % Seg Neutrophils # (1.8-7.7) K/mm3 PT (12.2-14.9) Sec. INR (0.87-1.13) APTT (24.2-36.6) Sec. Sodium (137-145) mmol/L Chloride (98-107) mmol/L BUN (9-20) mg/dL Creatinine (0.8-1.5) mg/dL Glucose (75-100) mg/dL Lactic Acid 5.20 H* 3.40 H* (0.7-2.0) mmol/L Calcium (8.4-10.2) mg/dL Total Bilirubin (0.1-1.2) mg/dL AST (5-40) units/L Total Creatine Kinase (55-170) units/L Total Protein (6.3-8.2) g/dL Albumin (3.9-5) g/dL Crossmatch 11/05/17 11/05/17 11/05/17 Range/Units 20:30 21:26 22:59 WBC (4.5-11.0) K/mm3 RBC (3.65-5.03) M/mm3 Hgb 7.2 L (11.8-15.2) gm/dl Hct 21.9 L (35.5-45.6) % MCV (84-94) fl MCH (28-32) pg RDW (13.2-15.2) % Lymph % (Auto) (13.4-35.0) % [place] % (Auto) (0.0-7.3) % [place] # (0.0-0.8) K/mm3 Seg Neutrophils % (40.0-70.0) % Seg Neutrophils # (1.8-7.7) K/mm3 PT (12.2-14.9) Sec. INR (0.87-1.13) APTT (24.2-36.6) Sec. Sodium (137-145) mmol/L Chloride (98-107) mmol/L BUN (9-20) mg/dL Creatinine (0.8-1.5) mg/dL Glucose (75-100) mg/dL Lactic Acid 3.60 H* 2.30 H* (0.7-2.0) mmol/L Calcium (8.4-10.2) mg/dL Total Bilirubin (0.1-1.2) mg/dL AST (5-40) units/L Total Creatine Kinase (55-170) units/L Total Protein (6.3-8.2) g/dL Albumin (3.9-5) g/dL Crossmatch 11/06/17 11/06/17 Range/Units 06:57 06:57 WBC 16.9 H (4.5-11.0) K/mm3 RBC 2.41 L (3.65-5.03) M/mm3 Hgb 7.6 L (11.8-15.2) gm/dl Hct 23.2 L (35.5-45.6) % MCV 96 H (84-94) fl MCH (28-32) pg RDW 19.4 H (13.2-15.2) % Lymph % (Auto) 10.9 L (13.4-35.0) % [place] % (Auto) 9.6 H (0.0-7.3) % [place] # 1.6 H (0.0-0.8) K/mm3 Seg Neutrophils % 78.8 H (40.0-70.0) % Seg Neutrophils # 13.3 H (1.8-7.7) K/mm3 PT (12.2-14.9) Sec. INR (0.87-1.13) APTT (24.2-36.6) Sec. Sodium 134 L (137-145) mmol/L Chloride (98-107) mmol/L BUN 56 H (9-20) mg/dL Creatinine (0.8-1.5) mg/dL Glucose 111 H (75-100) mg/dL Lactic Acid (0.7-2.0) mmol/L Calcium 8.1 L (8.4-10.2) mg/dL Total Bilirubin 2.50 H (0.1-1.2) mg/dL AST 41 H (5-40) units/L Total Creatine Kinase (55-170) units/L Total Protein 6.0 L (6.3-8.2) g/dL Albumin 3.0 L (3.9-5) g/dL Crossmatch - Imaging and Cardiology CT scan - abdomen: report reviewed CT scan - pelvis: report reviewed Assessment and Plan 67 male with GI bleed and acute blood loss anemia. 1. q6hour H/H's 2. Will transfuse 2 more units of PRBC's 3. Will also transfuse FFP 2 units. 4. Follow up GI recs, hopeful for scope but if patient on pressors, they may not do this. 5. Wean pressors for MAPs >60 6. Will repeat Coags. CCt 31 minutes
[2017-11-06] MEDS ORDERED: LEVOPHED DRIP 4 MG/NS 250 ML 4 MG/250 ML BAG IV SCH (14:00)
[2017-11-06 14:18] LABS: Hematocrit 22.4 % (35.5-45.6); Hemoglobin 7.3 gm/dl (11.8-15.2)
[2017-11-06] MEDS: SODIUM CHLORIDE FLUSH SYRINGE 10 ML IV SCH ×3 (14:24→22:50)
[2017-11-06] MEDS ORDERED: DIPRIVAN 10 MG/ML IV ONE ×2 (14:57)
[2017-11-06] MEDS ORDERED: WATER FOR IRRIG STERILE ONE (15:03)
--- NOTE | 2017-11-06 15:32 | Anesthesia Consultation ---
Anesthesia Consult and Med Hx Date of service: 11/06/17 - Airway Anesthetic Teeth Evaluation: Poor (missing, loose teeth), Chipped ROM Head & Neck: Adequate Mental/Hyoid Distance: Adequate Mallampati Class: Class II Intubation Access Assessment: Probably Good - Pre-Operative Health Status ASA Pre-Surgery Classification: ASA4 Proposed Anesthetic Plan: MAC - Pulmonary Hx Smoking: Yes (current smoker, 50 pack/years) COPD: Yes - Cardiovascular System Hx Hypertension: Yes Hx Coronary Artery Disease: No (systolic/diastolic HF) Hx Valvular Heart Disease: Yes (mitral valve replacement) - Gastrointestinal Hx Ulcer: Yes Hx Gastroesophageal Reflux Disease: Yes - Endocrine Hx Renal Disease: Yes (acute renal insufficiency) - Hematic Hx Anemia: Yes
--- NOTE | 2017-11-06 15:33 | Anesthesia Day of Surgery ---
Anesthesia Day of Surgery - Day of Surgery Patient Examined: Yes Patient H&P Reviewed: Yes Patient is NPO: Yes Beta Blockers: Yes
--- NOTE | 2017-11-06 15:34 | Progress Note ---
Assessment and Plan Assessment and plan: 67-year-old male presents for emergency room because of black stools and shortness of breath for 2 days. Patient was recently treated at [facility] for diastolic heart failure and pulmonary embolism. Patient is on XARELTO for the pulmonary embolism. Patient noticed black stools for the last 2 days. Patient is a poor historian. Patient complains of dizziness and weakness especially was standing. No chest pain. History of CHF and pulmonary embolism and hypertension present. No recent travel. Admits to hx of heart problems with his valves? and thinks he had a stent? Imaging and Cardiology: IMPRESSION: Small bilateral pleural effusions layering posteriorly with adjacent slight atelectasis and/or pneumonitis Prominent bowel gas throughout small and large intestine suspicious for paralytic ileus and/or enteritis Coronary artery calcification Borderline hepatomegaly without focal lesion Cholelithiasis Enlarged prostate with mass effect on the urinary bladder base Prominent stool may reflect constipation UGIB with melena SP GI scope, AVM was rx continue PPI Acute blood loss anemia transfused BRIANA iVF and blood tx, improving Hx of PUD continue PPI CHF appears hypovolemic, continue rescuscitation; obtain ECHO Pulmonary embolism Xarelto on hold due to GIB, should be restarted by his PCP when stable Hyponatremia NS, diuretics were dc Hypotension/ Hypovolemic shock IVF, blood and pressors, improving CCT 33 minutes History Interval history: no more bloody stools admits weakness now c/o sob no chills or fevers Hospitalist Physical - Physical exam Narrative exam: General.: Appears well, no distress, nontoxic HEENT: Moist mucous membranes, extraocular muscles intact, no lymphadenopathy Neck: supple Cardiac: S1-S2 heard Lungs: clear to auscultation bilaterally Abdomen: soft , nontender, nondistended, bowel sounds positive Extremities: no edema clubbing or cyanosis Skin: no rash or lesions Neurologic: no gross focal deficits Psych: appropriate behavior, appropriate mood, corporative, judgment intact - Constitutional Vitals: Temp Pulse Resp BP Pulse Ox 99 F 99 H 26 H 110/85 99 11/06/17 14:05 11/06/17 14:05 11/06/17 14:05 11/06/17 14:05 11/06/17 14:05 General appearance: Present: no acute distress, well-nourished Results - Labs CBC & Chem 7: 11/10/17 00:36 11/10/17 04:41 Labs: Laboratory Last Values WBC 16.9 K/mm3 (4.5-11.0) H 11/06/17 06:57 RBC 2.41 M/mm3 (3.65-5.03) L 11/06/17 06:57 Hgb 7.3 gm/dl (11.8-15.2) L 11/06/17 13:33 Hct 22.4 % (35.5-45.6) L 11/06/17 13:33 MCV 96 fl (84-94) H 11/06/17 06:57 MCH 31 pg (28-32) 11/06/17 06:57 MCHC 33 % (32-34) 11/06/17 06:57 RDW 19.4 % (13.2-15.2) H 11/06/17 06:57 Plt Count 252 K/mm3 (140-440) 11/06/17 06:57 Lymph % (Auto) 10.9 % (13.4-35.0) L 11/06/17 06:57 [place] % (Auto) 9.6 % (0.0-7.3) H 11/06/17 06:57 Eos % (Auto) 0.3 % (0.0-4.3) 11/06/17 06:57 Baso % (Auto) 0.4 % (0.0-1.8) 11/06/17 06:57 Lymph # 1.8 K/mm3 (1.2-5.4) 11/06/17 06:57 [place] # 1.6 K/mm3 (0.0-0.8) H 11/06/17 06:57 Eos # 0.0 K/mm3 (0.0-0.4) 11/06/17 06:57 Baso # 0.1 K/mm3 (0.0-0.1) 11/06/17 06:57 Seg Neutrophils % 78.8 % (40.0-70.0) H 11/06/17 06:57 Seg Neutrophils # 13.3 K/mm3 (1.8-7.7) H 11/06/17 06:57 PT 32.9 Sec. (12.2-14.9) H 11/05/17 12:23 INR 2.96 (0.87-1.13) H 11/05/17 12:23 APTT 39.0 Sec. (24.2-36.6) H 11/05/17 12:23 D-Dimer 136.11 ng/mlDDU (0-234) 11/05/17 12:23 VBG pH 7.371 (7.320-7.420) 11/05/17 13:03 Sodium 134 mmol/L (137-145) L 11/06/17 06:57 Potassium 4.2 mmol/L (3.6-5.0) 11/06/17 06:57 Chloride 100.4 mmol/L (98-107) 11/06/17 06:57 Carbon Dioxide 23 mmol/L (22-30) 11/06/17 06:57 Anion Gap 15 mmol/L 11/06/17 06:57 BUN 56 mg/dL (9-20) H 11/06/17 06:57 Creatinine 1.2 mg/dL (0.8-1.5) 11/06/17 06:57 Estimated GFR > 60 ml/min 11/06/17 06:57 BUN/Creatinine Ratio 47 % 11/06/17 06:57 Glucose 111 mg/dL (75-100) H 11/06/17 06:57 Lactic Acid 2.30 mmol/L (0.7-2.0) H* 11/05/17 22:59 Calcium 8.1 mg/dL (8.4-10.2) L 11/06/17 06:57 Total Bilirubin 2.50 mg/dL (0.1-1.2) H 11/06/17 06:57 AST 41 units/L (5-40) H 11/06/17 06:57 ALT 28 units/L (7-56) 11/06/17 06:57 Alkaline Phosphatase 62 units/L (35-129) 11/06/17 06:57 Total Creatine Kinase 39 units/L (55-170) L 11/05/17 12:23 CK-MB (CK-2) 1.3 ng/mL (0.0-4.0) 11/05/17 12:23 CK-MB (CK-2) Rel Index 3.3 (0-4) 11/05/17 12:23 Troponin T < 0.010 ng/mL (0.00-0.029) 11/05/17 12:23 Total Protein 6.0 g/dL (6.3-8.2) L 11/06/17 06:57 Albumin 3.0 g/dL (3.9-5) L 11/06/17 06:57 Albumin/Globulin Ratio 1.0 % 11/06/17 06:57 Urine Color Yellow (Yellow) 11/05/17 12:46 Urine Turbidity Clear (Clear) 11/05/17 12:46 Urine pH 5.0 (5.0-7.0) 11/05/17 12:46 Ur Specific [place] 1.010 (1.003-1.030) 11/05/17 12:46 Urine Protein <15 mg/dl mg/dL (Negative) 11/05/17 12:46 Urine Glucose (UA) Neg mg/dL (Negative) 11/05/17 12:46 Urine Ketones Neg mg/dL (Negative) 11/05/17 12:46 Urine Blood Neg (Negative) 11/05/17 12:46 Urine Nitrite Neg (Negative) 11/05/17 12:46 Urine Bilirubin Neg (Negative) 11/05/17 12:46 Urine Urobilinogen 2.0 mg/dL (<2.0) 11/05/17 12:46 Ur Leukocyte Esterase Neg (Negative) 11/05/17 12:46 Urine WBC (Auto) 1.0 /HPF (0.0-6.0) 11/05/17 12:46 Urine RBC (Auto) 1.0 /HPF (0.0-6.0) 11/05/17 12:46 Hyaline Casts 29 /LPF 11/05/17 12:46 Blood Type B POSITIVE 11/05/17 13:03 Antibody Screen Negative 11/05/17 13:03 Crossmatch See Detail 11/05/17 13:03
--- NOTE | 2017-11-06 16:58 | Post Operative Note ---
Pre-op diagnosis: gi bleed Post-op diagnosis: same Findings: EGD: hiatal hernia - gastritis - small AVM x 2 duodenum (heater probe treated) w/ some bleeding noted Procedure: egd Anesthesia: MAC Surgeon: SAUNDRA BOLDEN Estimated blood loss: none Specimen disposition: to lab Condition: stable Disposition: floor
--- NOTE | 2017-11-06 18:28 | Operative Report ---
PROCEDURE: EGD with bleeding therapy. INDICATION: 1. Anemia. 2. GI bleed. MEDICATIONS: Propofol per BACKUP SAWYER. COMPLICATIONS: None. DESCRIPTION OF PROCEDURE: The patient was done in the Medical Intensive Care Unit. The patient had the procedure discussed with him at length. All risks, complications, and benefits were discussed after which the patient signed consent for the procedure to be performed. The patient was placed in left lateral decubitus position. Mouth block placed in the patient's oral cavity. After adequate sedation medication as above, endoscope placed in the mouth and brought to the level of the second portion of duodenum. Retroflexion view performed. The patient's vital signs remained stable throughout the procedure. FINDINGS: There was noted to be a small hiatal hernia at GE junction at 38 cm from the gums. The esophagus otherwise appeared to be normal. Mild gastritis noted in the stomach. Stomach otherwise appeared to be normal. There were 2 small AVMs noted, one in the duodenal bulb and one in the second portion of duodenum. There was mild erythema and a slightly larger one in the second portion of the duodenum. No APC was available and so heater probe was applied to both areas with good result. It should be noted bleeding was noted from both areas on bleeding therapy. Postprocedure, the patient was satisfactory. The duodenum otherwise appeared to be normal. Retroflexion view performed in the stomach showed no other pathology other than noted above. The patient tolerated the procedure well. No complications during the procedure. IMPRESSION: 1. Hiatal hernia. 2. Mild gastritis. 3. AVM x 2, status post bleeding therapy as noted above. 4. Otherwise, normal EGD. RECOMMENDATIONS: 1. PPI IV b.i.d. 2. Follow hematocrit and transfuse as needed. 3. Clear liquid diet. 4. Avoid NSAIDs and aspirin. 5. We will follow. JOB# [id number] [facility]
[2017-11-06 20:07] LABS: Hematocrit 27.9 % (35.5-45.6); Hemoglobin 9.1 gm/dl (11.8-15.2)
--- NOTE | 2017-11-07 09:33 | Progress Note ---
Assessment and Plan 67 male with GI bleed and acute blood loss anemia. 1. Will give a one time dose of hydrocortisone 100, if improvement in BP then will start q8 hour dosing 2. check Stat Coags 3. Ask for PICC line. 4. Wean pressors for MAPs >60 5. check lactic acid CCt 31 minutes Subjective Date of service: 11/07/17 Interval history: Remains on Levophed. Not able to provide much history at all. given 2 more units of PRBC's yesterday and 1 unit of FFP. 2 were ordered. No repeat coags done this am. Objective - Constitutional Vitals: Vital Signs - 12hr 11/06/17 11/06/17 11/06/17 21:30 21:41 21:51 Temperature Pulse Rate 93 H 92 H 96 H Respiratory 22 19 23 Rate Blood Pressure 113/52 113/52 106/58 O2 Sat by Pulse Oximetry 11/06/17 11/06/17 11/06/17 22:00 22:11 22:21 Temperature Pulse Rate 98 H 105 H 109 H Respiratory 28 H 19 24 Rate Blood Pressure 116/60 116/60 116/60 O2 Sat by Pulse 100 96 Oximetry 11/06/17 11/06/17 11/06/17 22:31 22:41 22:51 Temperature Pulse Rate 103 H 102 H 101 H Respiratory 25 H 31 H 22 Rate Blood Pressure 90/59 90/59 90/59 O2 Sat by Pulse 100 97 91 Oximetry 11/06/17 11/06/17 11/06/17 23:00 23:11 23:13 Temperature Pulse Rate 100 H 96 H 95 H Respiratory 28 H 29 H 27 H Rate Blood Pressure 98/73 98/73 98/73 O2 Sat by Pulse 73 L Oximetry 11/06/17 11/06/17 11/06/17 23:21 23:30 23:41 Temperature Pulse Rate 94 H 91 H 91 H Respiratory 29 H 23 22 Rate Blood Pressure 94/69 84/59 84/59 O2 Sat by Pulse Oximetry 11/06/17 11/07/17 11/07/17 23:51 00:00 00:11 Temperature 97.8 F Pulse Rate 91 H 91 H 96 H Respiratory 24 24 21 Rate Blood Pressure 86/56 69/42 69/42 O2 Sat by Pulse Oximetry 11/07/17 11/07/17 11/07/17 00:21 00:30 00:41 Temperature Pulse Rate 99 H 98 H 97 H Respiratory 19 29 H 28 H Rate Blood Pressure 84/59 80/53 80/53 O2 Sat by Pulse Oximetry 11/07/17 11/07/17 11/07/17 00:51 01:00 01:11 Temperature Pulse Rate 100 H 91 H 90 Respiratory 15 28 H 25 H Rate Blood Pressure 76/52 74/51 89/63 O2 Sat by Pulse Oximetry 11/07/17 11/07/17 11/07/17 01:21 01:30 01:41 Temperature Pulse Rate 89 87 92 H Respiratory 25 H 16 23 Rate Blood Pressure 89/63 87/60 87/60 O2 Sat by Pulse Oximetry 11/07/17 11/07/17 11/07/17 01:51 02:00 02:10 Temperature Pulse Rate 93 H 92 H 92 H Respiratory 25 H 17 21 Rate Blood Pressure 94/63 82/50 82/50 O2 Sat by Pulse Oximetry 11/07/17 11/07/17 11/07/17 02:20 02:30 02:41 Temperature Pulse Rate 97 H 90 88 Respiratory 19 29 H 22 Rate Blood Pressure 77/45 92/60 92/60 O2 Sat by Pulse Oximetry 11/07/17 11/07/17 11/07/17 02:50 03:00 03:04 Temperature 97.7 F Pulse Rate 90 91 H Respiratory 26 H 26 H Rate Blood Pressure 85/52 84/51 O2 Sat by Pulse Oximetry 11/07/17 11/07/17 11/07/17 03:11 03:21 03:31 Temperature Pulse Rate 92 H 94 H 102 H Respiratory 25 H 27 H 17 Rate Blood Pressure 84/51 91/59 91/59 O2 Sat by Pulse Oximetry 11/07/17 11/07/17 11/07/17 03:41 03:51 04:00 Temperature Pulse Rate 89 92 H 88 Respiratory 29 H 24 15 Rate Blood Pressure 99/67 87/62 91/62 O2 Sat by Pulse Oximetry 11/07/17 11/07/17 11/07/17 04:11 04:21 04:30 Temperature Pulse Rate 91 H 89 93 H Respiratory 20 19 24 Rate Blood Pressure 91/62 91/60 90/61 O2 Sat by Pulse Oximetry 11/07/17 11/07/17 11/07/17 04:41 04:51 05:00 Temperature Pulse Rate 90 90 93 H Respiratory 19 24 28 H Rate Blood Pressure 90/61 86/57 94/67 O2 Sat by Pulse Oximetry 11/07/17 11/07/17 11/07/17 05:11 05:21 05:30 Temperature Pulse Rate 88 91 H 88 Respiratory 24 25 H 24 Rate Blood Pressure 94/67 95/66 91/60 O2 Sat by Pulse Oximetry 11/07/17 11/07/17 11/07/17 05:41 05:51 06:01 Temperature Pulse Rate 87 87 105 H Respiratory 19 21 33 H Rate Blood Pressure 91/60 93/66 93/66 O2 Sat by Pulse Oximetry 11/07/17 11/07/17 11/07/17 06:11 06:21 06:30 Temperature Pulse Rate 96 H 88 88 Respiratory 26 H 24 22 Rate Blood Pressure 93/66 107/44 97/69 O2 Sat by Pulse Oximetry 11/07/17 11/07/17 11/07/17 06:41 06:51 07:00 Temperature Pulse Rate 86 86 87 Respiratory 25 H 20 17 Rate Blood Pressure 97/69 99/67 91/65 O2 Sat by Pulse Oximetry 11/07/17 11/07/17 11/07/17 07:11 07:21 07:31 Temperature Pulse Rate 89 87 89 Respiratory 17 21 19 Rate Blood Pressure 91/65 91/65 77/46 O2 Sat by Pulse Oximetry 11/07/17 11/07/17 11/07/17 07:41 07:51 08:01 Temperature Pulse Rate 89 92 H 90 Respiratory 24 36 H 26 H Rate Blood Pressure 77/46 80/54 77/48 O2 Sat by Pulse 95 Oximetry 11/07/17 08:11 Temperature Pulse Rate 89 Respiratory 26 H Rate Blood Pressure 74/49 O2 Sat by Pulse 96 Oximetry General appearance: Present: no acute distress, disheveled - EENT Eyes: PERRL, EOM intact ENT: hearing intact, poor dentition - Neck Neck: supple - Respiratory Respiratory effort: normal Respiratory: bilateral: CTA - Cardiovascular Rhythm: regular Heart Sounds: Present: S1 & S2 Extremities: no ischemia - Gastrointestinal General gastrointestinal: Present: soft, non-tender, normal bowel sounds Rectal Exam: deferred - Genitourinary Male genitourinary: deferred - Labs CBC & Chem 7: 11/06/17 19:53 11/06/17 06:57 Labs: Abnormal lab results 11/05/17 11/06/17 11/06/17 Range/Units 13:03 13:33 19:53 Hgb 7.3 L 9.1 L (11.8-15.2) gm/dl Hct 22.4 L 27.9 L (35.5-45.6) % Crossmatch See Detail
[2017-11-07] MEDS: SODIUM CHLORIDE FLUSH SYRINGE 10 ML IV SCH ×2 (09:47→21:12)
[2017-11-07] MEDS: PROTONIX IV SCH ×2 (09:47→21:12)
[2017-11-07 10:50] LABS: Basophils % (Auto) 0.1 % (0.0-1.8); Eosinophils % (Auto) 0.2 % (0.0-4.3); Hematocrit 26.2 % (35.5-45.6); Hemoglobin 8.7 gm/dl (11.8-15.2); Lymphocytes # (Auto) 0.9 K/mm3 (1.2-5.4); Lymphocytes % (Auto) 7.4 % (13.4-35.0); Mean Corpuscular HGB Conc 33 % (32-34); Mean Corpuscular Hemoglobin 32 pg (28-32); Mean Corpuscular Volume 97 fl (84-94); Monocytes # (Auto) 1.1 K/mm3 (0.0-0.8); Monocytes % (Auto) 9.1 % (0.0-7.3); Platelet Count 209 K/mm3 (140-440); Red Cell Distribution Width 18.5 % (13.2-15.2)
[2017-11-07 10:57] LABS: INR 1.06 (0.87-1.13)
[2017-11-07 11:04] LABS: Alanine Aminotransferase 28 units/L (7-56); Albumin 3.1 g/dL (3.9-5); BUN/Creatinine Ratio 33; Blood Urea Nitrogen 26 mg/dL (9-20); Calcium 8.2 mg/dL (8.4-10.2); Hemolysis Index 14
--- NOTE | 2017-11-07 12:23 | Gastroenterology Progress Note ---
Assessment and Plan GI: s/p EGD w/ therapy to AVM x 2 - denies further signs bleeding - continue PPI qd - ok to transfer to floor when hemo stable - soft diet - will follow Subjective Date of service: 11/07/17 Interval history: - pt reports no signs bleeding overnight Objective - Constitutional Vitals: Temp Pulse Resp BP Pulse Ox 97.7 F 90 25 H 107/72 98 11/07/17 03:04 11/07/17 11:11 11/07/17 11:11 11/07/17 11:11 11/07/17 11:11 General appearance: no acute distress - EENT Eyes: PERRL - Respiratory Respiratory: bilateral: CTA - Cardiovascular Rhythm: regular Heart Sounds: Present: S1 & S2 - Gastrointestinal General gastrointestinal: Present: soft, non-tender, non-distended - Labs CBC & Chem 7: 11/07/17 10:24 11/07/17 10:24 Labs: Laboratory Results - last 24 hr 11/05/17 11/06/17 11/06/17 13:03 13:33 19:53 WBC RBC Hgb 7.3 L 9.1 L Hct 22.4 L 27.9 L MCV MCH MCHC RDW Plt Count Lymph % (Auto) [place] % (Auto) Eos % (Auto) Baso % (Auto) Lymph # [place] # Eos # Baso # Seg Neutrophils % Seg Neutrophils # PT INR APTT Sodium Potassium Chloride Carbon Dioxide Anion Gap BUN Creatinine Estimated GFR BUN/Creatinine Ratio Glucose POC Glucose Calcium Total Bilirubin AST ALT Alkaline Phosphatase Total Protein Albumin Albumin/Globulin Ratio Blood Type B POSITIVE Antibody Screen Negative Crossmatch See Detail 11/07/17 11/07/17 11/07/17 08:24 10:24 10:24 WBC 11.9 H RBC 2.70 L Hgb 8.7 L Hct 26.2 L MCV 97 H MCH 32 MCHC 33 RDW 18.5 H Plt Count 209 Lymph % (Auto) 7.4 L [place] % (Auto) 9.1 H Eos % (Auto) 0.2 Baso % (Auto) 0.1 Lymph # 0.9 L [place] # 1.1 H Eos # 0.0 Baso # 0.0 Seg Neutrophils % 83.2 H Seg Neutrophils # 9.9 H PT 14.4 INR 1.06 APTT 28.0 Sodium Potassium Chloride Carbon Dioxide Anion Gap BUN Creatinine Estimated GFR BUN/Creatinine Ratio Glucose POC Glucose 97 Calcium Total Bilirubin AST ALT Alkaline Phosphatase Total Protein Albumin Albumin/Globulin Ratio Blood Type Antibody Screen Crossmatch 11/07/17 10:24 WBC RBC Hgb Hct MCV MCH MCHC RDW Plt Count Lymph % (Auto) [place] % (Auto) Eos % (Auto) Baso % (Auto) Lymph # [place] # Eos # Baso # Seg Neutrophils % Seg Neutrophils # PT INR APTT Sodium 138 Potassium 4.0 Chloride 105.9 Carbon Dioxide 22 Anion Gap 14 BUN 26 H Creatinine 0.8 Estimated GFR > 60 BUN/Creatinine Ratio 33 Glucose 135 H POC Glucose Calcium 8.2 L Total Bilirubin 2.90 H AST 50 H ALT 28 Alkaline Phosphatase 81 Total Protein 6.2 L Albumin 3.1 L Albumin/Globulin Ratio 1.0 Blood Type Antibody Screen Crossmatch
--- NOTE | 2017-11-07 13:30 | Progress Note ---
Assessment and Plan Assessment and plan: 67-year-old male presents for emergency room because of black stools and shortness of breath for 2 days. Patient was recently treated at [place] for diastolic heart failure and pulmonary embolism. Patient is on XARELTO for the pulmonary embolism. Patient noticed black stools for the last 2 days. Patient is a poor historian. Patient complains of dizziness and weakness especially was standing. No chest pain. History of CHF and pulmonary embolism and hypertension present. No recent travel. Admits to hx of heart problems with his valves? and thinks he had a stent? Imaging and Cardiology: IMPRESSION: Small bilateral pleural effusions layering posteriorly with adjacent slight atelectasis and/or pneumonitis Prominent bowel gas throughout small and large intestine suspicious for paralytic ileus and/or enteritis Coronary artery calcification Borderline hepatomegaly without focal lesion Cholelithiasis Enlarged prostate with mass effect on the urinary bladder base Prominent stool may reflect constipation UGIB with melena SP GI scope, AVM was rx continue PPI Acute blood loss anemia transfused BRIANA iVF and blood tx, improving Hx of PUD continue PPI CHF appears hypovolemic, continue rescuscitation; echo shows preserved EF Pulmonary embolism Xarelto on hold due to GIB, should be restarted by his PCP when stable Hyponatremia NS, diuretics were dc Hypotension/ Hypovolemic shock IVF, blood and pressors, improving added steroids for presumed adrenal insufficiency, improved, will taper CCT 33 minutes History Interval history: no more bloody stools admits weakness now c/o sob no chills or fevers Hospitalist Physical - Physical exam Narrative exam: General.: Appears well, no distress, nontoxic, cachectic HEENT: Moist mucous membranes, extraocular muscles intact, no lymphadenopathy Neck: supple Cardiac: S1-S2 heard Lungs: clear to auscultation bilaterally Abdomen: soft , nontender, nondistended, bowel sounds positive Extremities: no edema clubbing or cyanosis Skin: no rash or lesions Neurologic: no gross focal deficits Psych: appropriate behavior, appropriate mood, corporative, judgment intact - Constitutional Vitals: Temp Pulse Resp BP Pulse Ox 97.7 F 90 25 H 107/72 98 11/07/17 03:04 11/07/17 11:11 11/07/17 11:11 11/07/17 11:11 11/07/17 11:11 General appearance: Present: no acute distress, disheveled Results - Labs CBC & Chem 7: 11/10/17 00:36 11/10/17 04:41 Labs: Laboratory Last Values WBC 11.9 K/mm3 (4.5-11.0) H 11/07/17 10:24 RBC 2.70 M/mm3 (3.65-5.03) L 11/07/17 10:24 Hgb 8.7 gm/dl (11.8-15.2) L 11/07/17 10:24 Hct 26.2 % (35.5-45.6) L 11/07/17 10:24 MCV 97 fl (84-94) H 11/07/17 10:24 MCH 32 pg (28-32) 11/07/17 10:24 MCHC 33 % (32-34) 11/07/17 10:24 RDW 18.5 % (13.2-15.2) H 11/07/17 10:24 Plt Count 209 K/mm3 (140-440) 11/07/17 10:24 Lymph % (Auto) 7.4 % (13.4-35.0) L 11/07/17 10:24 [place] % (Auto) 9.1 % (0.0-7.3) H 11/07/17 10:24 Eos % (Auto) 0.2 % (0.0-4.3) 11/07/17 10:24 Baso % (Auto) 0.1 % (0.0-1.8) 11/07/17 10:24 Lymph # 0.9 K/mm3 (1.2-5.4) L 11/07/17 10:24 [place] # 1.1 K/mm3 (0.0-0.8) H 11/07/17 10:24 Eos # 0.0 K/mm3 (0.0-0.4) 11/07/17 10:24 Baso # 0.0 K/mm3 (0.0-0.1) 11/07/17 10:24 Seg Neutrophils % 83.2 % (40.0-70.0) H 11/07/17 10:24 Seg Neutrophils # 9.9 K/mm3 (1.8-7.7) H 11/07/17 10:24 PT 14.4 Sec. (12.2-14.9) 11/07/17 10:24 INR 1.06 (0.87-1.13) 11/07/17 10:24 APTT 28.0 Sec. (24.2-36.6) 11/07/17 10:24 D-Dimer 136.11 ng/mlDDU (0-234) 11/05/17 12:23 VBG pH 7.371 (7.320-7.420) 11/05/17 13:03 Sodium 138 mmol/L (137-145) 11/07/17 10:24 Potassium 4.0 mmol/L (3.6-5.0) 11/07/17 10:24 Chloride 105.9 mmol/L (98-107) 11/07/17 10:24 Carbon Dioxide 22 mmol/L (22-30) 11/07/17 10:24 Anion Gap 14 mmol/L 11/07/17 10:24 BUN 26 mg/dL (9-20) H 11/07/17 10:24 Creatinine 0.8 mg/dL (0.8-1.5) 11/07/17 10:24 Estimated GFR > 60 ml/min 11/07/17 10:24 BUN/Creatinine Ratio 33 % 11/07/17 10:24 Glucose 135 mg/dL (75-100) H 11/07/17 10:24 POC Glucose 97 (70-105) 11/07/17 08:24 Lactic Acid 2.30 mmol/L (0.7-2.0) H* 11/05/17 22:59 Calcium 8.2 mg/dL (8.4-10.2) L 11/07/17 10:24 Total Bilirubin 2.90 mg/dL (0.1-1.2) H 11/07/17 10:24 AST 50 units/L (5-40) H 11/07/17 10:24 ALT 28 units/L (7-56) 11/07/17 10:24 Alkaline Phosphatase 81 units/L (35-129) 11/07/17 10:24 Total Creatine Kinase 39 units/L (55-170) L 11/05/17 12:23 CK-MB (CK-2) 1.3 ng/mL (0.0-4.0) 11/05/17 12:23 CK-MB (CK-2) Rel Index 3.3 (0-4) 11/05/17 12:23 Troponin T < 0.010 ng/mL (0.00-0.029) 11/05/17 12:23 Total Protein 6.2 g/dL (6.3-8.2) L 11/07/17 10:24 Albumin 3.1 g/dL (3.9-5) L 11/07/17 10:24 Albumin/Globulin Ratio 1.0 % 11/07/17 10:24 Urine Color Yellow (Yellow) 11/05/17 12:46 Urine Turbidity Clear (Clear) 11/05/17 12:46 Urine pH 5.0 (5.0-7.0) 11/05/17 12:46 Ur Specific [place] 1.010 (1.003-1.030) 11/05/17 12:46 Urine Protein <15 mg/dl mg/dL (Negative) 11/05/17 12:46 Urine Glucose (UA) Neg mg/dL (Negative) 11/05/17 12:46 Urine Ketones Neg mg/dL (Negative) 11/05/17 12:46 Urine Blood Neg (Negative) 11/05/17 12:46 Urine Nitrite Neg (Negative) 11/05/17 12:46 Urine Bilirubin Neg (Negative) 11/05/17 12:46 Urine Urobilinogen 2.0 mg/dL (<2.0) 11/05/17 12:46 Ur Leukocyte Esterase Neg (Negative) 11/05/17 12:46 Urine WBC (Auto) 1.0 /HPF (0.0-6.0) 11/05/17 12:46 Urine RBC (Auto) 1.0 /HPF (0.0-6.0) 11/05/17 12:46 Hyaline Casts 29 /LPF 11/05/17 12:46 Blood Type B POSITIVE 11/05/17 13:03 Antibody Screen Negative 11/05/17 13:03 Crossmatch See Detail 11/05/17 13:03
--- NOTE | 2017-11-07 13:57 | XRay Report ---
AP CHEST: HISTORY: SIRS, evaluate for pneumonia Compared to 01/24/17. Previous cardiac surgery changes with valve replacement are identified, correlate with history. Heart size is within normal limits. Mild to moderate congestive changes have developed in the lower lung zones as well as small bilateral pleural effusions. The upper lung zones are well aerated. No pneumothorax is identified. IMPRESSION: Pulmonary venous congestion and small bilateral pleural effusions. No convincing pneumonia on AP chest.
[2017-11-07] MEDS ORDERED: PROVENTIL IH PRN (14:30)
[2017-11-07] MEDS: DUONEB *Not for PRN Use IH SCH ×3 (15:05→20:26)
[2017-11-07] MEDS: TYLENOL PO PRN (20:05)
[2017-11-07] MEDS: COLACE PO SCH (21:11)
[2017-11-08] MEDS: DUONEB *Not for PRN Use IH SCH ×4 (02:43→21:58)
--- NOTE | 2017-11-08 08:10 | Progress Note ---
Assessment and Plan Assessment and plan: 67-year-old male presents for emergency room because of black stools and shortness of breath for 2 days. Patient was recently treated at [place] for diastolic heart failure and pulmonary embolism. Patient is on XARELTO for the pulmonary embolism. Patient noticed black stools for the last 2 days. Patient is a poor historian. Patient complains of dizziness and weakness especially was standing. No chest pain. History of CHF and pulmonary embolism and hypertension present. No recent travel. Admits to hx of heart problems with his valves? and thinks he had a stent? Imaging and Cardiology: IMPRESSION: Small bilateral pleural effusions layering posteriorly with adjacent slight atelectasis and/or pneumonitis Prominent bowel gas throughout small and large intestine suspicious for paralytic ileus and/or enteritis Coronary artery calcification Borderline hepatomegaly without focal lesion Cholelithiasis Enlarged prostate with mass effect on the urinary bladder base Prominent stool may reflect constipation UGIB with melena SP GI scope, AVM was rx continue PPI Acute blood loss anemia transfused BRIANA iVF and blood tx, improving Hx of PUD continue PPI CHF appears hypovolemic, continue rescuscitation; echo shows preserved EF Pulmonary embolism Xarelto on hold due to GIB, should be restarted by his PCP when stable Hyponatremia NS, diuretics were dc Hypotension/ Hypovolemic shock IVF, blood and pressors, improving added steroids for presumed adrenal insufficiency, improved, will taper CCT 33 minutes History Interval history: no more bloody stools admits weakness now c/o sob no chills or fevers Hospitalist Physical - Physical exam Narrative exam: General.: Appears well, no distress, nontoxic, cachectic HEENT: Moist mucous membranes, extraocular muscles intact, no lymphadenopathy Neck: supple Cardiac: S1-S2 heard Lungs: clear to auscultation bilaterally Abdomen: soft , nontender, nondistended, bowel sounds positive Extremities: no edema clubbing or cyanosis Skin: no rash or lesions Neurologic: no gross focal deficits Psych: appropriate behavior, appropriate mood, corporative, judgment intact - Constitutional Vitals: Temp Pulse Resp BP Pulse Ox 97.6 F 97 H 25 H 117/78 100 11/08/17 03:46 11/08/17 07:51 11/08/17 07:51 11/08/17 07:51 11/08/17 07:51 General appearance: Present: no acute distress, disheveled Results - Labs CBC & Chem 7: 11/10/17 00:36 11/10/17 04:41 Labs: Laboratory Last Values WBC 11.9 K/mm3 (4.5-11.0) H 11/07/17 10:24 RBC 2.70 M/mm3 (3.65-5.03) L 11/07/17 10:24 Hgb 8.7 gm/dl (11.8-15.2) L 11/07/17 10:24 Hct 26.2 % (35.5-45.6) L 11/07/17 10:24 MCV 97 fl (84-94) H 11/07/17 10:24 MCH 32 pg (28-32) 11/07/17 10:24 MCHC 33 % (32-34) 11/07/17 10:24 RDW 18.5 % (13.2-15.2) H 11/07/17 10:24 Plt Count 209 K/mm3 (140-440) 11/07/17 10:24 Lymph % (Auto) 7.4 % (13.4-35.0) L 11/07/17 10:24 [place] % (Auto) 9.1 % (0.0-7.3) H 11/07/17 10:24 Eos % (Auto) 0.2 % (0.0-4.3) 11/07/17 10:24 Baso % (Auto) 0.1 % (0.0-1.8) 11/07/17 10:24 Lymph # 0.9 K/mm3 (1.2-5.4) L 11/07/17 10:24 [place] # 1.1 K/mm3 (0.0-0.8) H 11/07/17 10:24 Eos # 0.0 K/mm3 (0.0-0.4) 11/07/17 10:24 Baso # 0.0 K/mm3 (0.0-0.1) 11/07/17 10:24 Seg Neutrophils % 83.2 % (40.0-70.0) H 11/07/17 10:24 Seg Neutrophils # 9.9 K/mm3 (1.8-7.7) H 11/07/17 10:24 PT 14.4 Sec. (12.2-14.9) 11/07/17 10:24 INR 1.06 (0.87-1.13) 11/07/17 10:24 APTT 28.0 Sec. (24.2-36.6) 11/07/17 10:24 D-Dimer 136.11 ng/mlDDU (0-234) 11/05/17 12:23 VBG pH 7.371 (7.320-7.420) 11/05/17 13:03 Sodium 138 mmol/L (137-145) 11/07/17 10:24 Potassium 4.0 mmol/L (3.6-5.0) 11/07/17 10:24 Chloride 105.9 mmol/L (98-107) 11/07/17 10:24 Carbon Dioxide 22 mmol/L (22-30) 11/07/17 10:24 Anion Gap 14 mmol/L 11/07/17 10:24 BUN 26 mg/dL (9-20) H 11/07/17 10:24 Creatinine 0.8 mg/dL (0.8-1.5) 11/07/17 10:24 Estimated GFR > 60 ml/min 11/07/17 10:24 BUN/Creatinine Ratio 33 % 11/07/17 10:24 Glucose 135 mg/dL (75-100) H 11/07/17 10:24 POC Glucose 97 (70-105) 11/07/17 08:24 Lactic Acid 2.30 mmol/L (0.7-2.0) H* 11/05/17 22:59 Calcium 8.2 mg/dL (8.4-10.2) L 11/07/17 10:24 Total Bilirubin 2.90 mg/dL (0.1-1.2) H 11/07/17 10:24 AST 50 units/L (5-40) H 11/07/17 10:24 ALT 28 units/L (7-56) 11/07/17 10:24 Alkaline Phosphatase 81 units/L (35-129) 11/07/17 10:24 Total Creatine Kinase 39 units/L (55-170) L 11/05/17 12:23 CK-MB (CK-2) 1.3 ng/mL (0.0-4.0) 11/05/17 12:23 CK-MB (CK-2) Rel Index 3.3 (0-4) 11/05/17 12:23 Troponin T < 0.010 ng/mL (0.00-0.029) 11/05/17 12:23 Total Protein 6.2 g/dL (6.3-8.2) L 11/07/17 10:24 Albumin 3.1 g/dL (3.9-5) L 11/07/17 10:24 Albumin/Globulin Ratio 1.0 % 11/07/17 10:24 Urine Color Yellow (Yellow) 11/05/17 12:46 Urine Turbidity Clear (Clear) 11/05/17 12:46 Urine pH 5.0 (5.0-7.0) 11/05/17 12:46 Ur Specific [place] 1.010 (1.003-1.030) 11/05/17 12:46 Urine Protein <15 mg/dl mg/dL (Negative) 11/05/17 12:46 Urine Glucose (UA) Neg mg/dL (Negative) 11/05/17 12:46 Urine Ketones Neg mg/dL (Negative) 11/05/17 12:46 Urine Blood Neg (Negative) 11/05/17 12:46 Urine Nitrite Neg (Negative) 11/05/17 12:46 Urine Bilirubin Neg (Negative) 11/05/17 12:46 Urine Urobilinogen 2.0 mg/dL (<2.0) 11/05/17 12:46 Ur Leukocyte Esterase Neg (Negative) 11/05/17 12:46 Urine WBC (Auto) 1.0 /HPF (0.0-6.0) 11/05/17 12:46 Urine RBC (Auto) 1.0 /HPF (0.0-6.0) 11/05/17 12:46 Hyaline Casts 29 /LPF 11/05/17 12:46 Blood Type B POSITIVE 11/05/17 13:03 Antibody Screen Negative 11/05/17 13:03 Crossmatch See Detail 11/05/17 13:03
[2017-11-08] MEDS: COLACE PO SCH ×2 (09:16→22:19)
[2017-11-08] MEDS: PROTONIX IV SCH (09:16)
--- NOTE | 2017-11-08 11:40 | Progress Note ---
Assessment and Plan 67 male with GI bleed and acute blood loss anemia. 1. steroids helped with BP. Off pressors but not started on mineral corticoid therapy, instead given solumedrol 40q8. Suggest just starting patient of [place]ine[place] daily and stopping solumedrol 2. Stable H/H 3. Stable from a critical care standpoint Please transfer out of ICU. will sign off once out of unit. Subjective Date of service: 11/08/17 Interval history: Off pressors since yesterday around 1600. Awake and alert. Using urinal on side of bed. Objective - Constitutional Vitals: Vital Signs - 12hr 11/07/17 11/07/17 11/08/17 23:42 23:51 00:00 Temperature 98.7 F Pulse Rate 91 H 91 H 91 H Pulse Rate [ Anterior Bilateral Throughout] Respiratory 24 21 21 Rate Respiratory Rate [Anterior Bilateral Throughout] Blood Pressure 110/76 116/82 O2 Sat by Pulse 95 99 97 Oximetry 11/08/17 11/08/17 11/08/17 00:11 00:21 00:30 Temperature Pulse Rate 90 91 H 91 H Pulse Rate [ Anterior Bilateral Throughout] Respiratory 13 20 21 Rate Respiratory Rate [Anterior Bilateral Throughout] Blood Pressure 116/82 113/78 114/78 O2 Sat by Pulse 99 97 98 Oximetry 11/08/17 11/08/17 11/08/17 00:41 00:51 01:00 Temperature Pulse Rate 92 H 99 H 101 H Pulse Rate [ Anterior Bilateral Throughout] Respiratory 17 28 H 30 H Rate Respiratory Rate [Anterior Bilateral Throughout] Blood Pressure 114/78 103/78 93/66 O2 Sat by Pulse 96 95 95 Oximetry 11/08/17 11/08/17 11/08/17 01:11 01:21 01:30 Temperature Pulse Rate 93 H 93 H 95 H Pulse Rate [ Anterior Bilateral Throughout] Respiratory 22 18 26 H Rate Respiratory Rate [Anterior Bilateral Throughout] Blood Pressure 103/78 94/68 85/54 O2 Sat by Pulse 98 98 Oximetry 11/08/17 11/08/17 11/08/17 01:41 01:51 02:01 Temperature Pulse Rate 94 H 94 H 95 H Pulse Rate [ Anterior Bilateral Throughout] Respiratory 24 26 H 23 Rate Respiratory Rate [Anterior Bilateral Throughout] Blood Pressure 93/58 105/63 96/64 O2 Sat by Pulse 94 Oximetry 11/08/17 11/08/1718 02:10 02:20 02:31 Temperature Pulse Rate 93 H 96 H 93 H Pulse Rate [ Anterior Bilateral Throughout] Respiratory 20 17 25 H Rate Respiratory Rate [Anterior Bilateral Throughout] Blood Pressure 96/64 84/56 92/65 O2 Sat by Pulse Oximetry 11/08/17 11/08/17 11/08/17 02:41 02:45 02:51 Temperature Pulse Rate 95 H 97 H Pulse Rate [ 93 H Anterior Bilateral Throughout] Respiratory 20 25 H Rate Respiratory 22 Rate [Anterior Bilateral Throughout] Blood Pressure 92/65 107/75 O2 Sat by Pulse 100 100 Oximetry 11/08/17 11/08/17 11/08/17 03:00 03:11 03:21 Temperature Pulse Rate 97 H 100 H 107 H Pulse Rate [ Anterior Bilateral Throughout] Respiratory 26 H 28 H 36 H Rate Respiratory Rate [Anterior Bilateral Throughout] Blood Pressure 104/71 104/71 86/64 O2 Sat by Pulse 99 100 99 Oximetry 11/08/17 11/08/17 11/08/17 03:31 03:41 03:46 Temperature 97.6 F Pulse Rate 98 H 97 H Pulse Rate [ Anterior Bilateral Throughout] Respiratory 30 H 28 H Rate Respiratory Rate [Anterior Bilateral Throughout] Blood Pressure 86/64 86/64 O2 Sat by Pulse 99 99 Oximetry 11/08/17 11/08/17 11/08/17 03:51 04:00 04:01 Temperature Pulse Rate 100 H 100 H Pulse Rate [ Anterior Bilateral Throughout] Respiratory 28 H 20 26 H Rate Respiratory Rate [Anterior Bilateral Throughout] Blood Pressure 111/78 111/76 O2 Sat by Pulse 100 96 100 Oximetry 11/08/17 11/08/17 11/08/17 04:11 04:21 04:30 Temperature Pulse Rate 97 H 99 H 99 H Pulse Rate [ Anterior Bilateral Throughout] Respiratory 24 27 H 23 Rate Respiratory Rate [Anterior Bilateral Throughout] Blood Pressure 111/76 95/71 106/76 O2 Sat by Pulse 99 99 98 Oximetry 11/08/17 11/08/17 11/08/17 04:41 04:51 05:00 Temperature Pulse Rate 98 H 96 H 97 H Pulse Rate [ Anterior Bilateral Throughout] Respiratory 24 27 H 22 Rate Respiratory Rate [Anterior Bilateral Throughout] Blood Pressure 106/76 111/69 110/79 O2 Sat by Pulse 99 98 99 Oximetry 11/08/17 11/08/1718 05:11 05:21 05:30 Temperature Pulse Rate 105 H 95 H 97 H Pulse Rate [ Anterior Bilateral Throughout] Respiratory 31 H 23 23 Rate Respiratory Rate [Anterior Bilateral Throughout] Blood Pressure 110/79 113/79 101/80 O2 Sat by Pulse 100 97 99 Oximetry 11/08/17 11/08/17 11/08/17 05:41 05:51 06:00 Temperature Pulse Rate 99 H 94 H 107 H Pulse Rate [ Anterior Bilateral Throughout] Respiratory 20 18 41 H Rate Respiratory Rate [Anterior Bilateral Throughout] Blood Pressure 101/80 98/71 99/65 O2 Sat by Pulse 100 98 100 Oximetry 11/08/17 11/08/17 11/08/17 06:11 06:21 06:30 Temperature Pulse Rate 93 H 96 H 94 H Pulse Rate [ Anterior Bilateral Throughout] Respiratory 23 23 26 H Rate Respiratory Rate [Anterior Bilateral Throughout] Blood Pressure 99/65 107/72 112/79 O2 Sat by Pulse 99 99 98 Oximetry 11/08/17 11/08/17 11/08/17 06:41 06:51 07:00 Temperature Pulse Rate 94 H 96 H 98 H Pulse Rate [ Anterior Bilateral Throughout] Respiratory 28 H 30 H 23 Rate Respiratory Rate [Anterior Bilateral Throughout] Blood Pressure 112/79 118/84 108/75 O2 Sat by Pulse 99 100 100 Oximetry 11/08/17 11/08/17 11/08/17 07:11 07:21 07:30 Temperature Pulse Rate 95 H 96 H 100 H Pulse Rate [ Anterior Bilateral Throughout] Respiratory 26 H 25 H 30 H Rate Respiratory Rate [Anterior Bilateral Throughout] Blood Pressure 108/75 111/76 93/67 O2 Sat by Pulse 100 100 100 Oximetry 11/08/17 11/08/17 11/08/17 07:40 07:41 07:44 Temperature Pulse Rate 102 H Pulse Rate [ 94 H Anterior Bilateral Throughout] Respiratory 26 H Rate Respiratory 19 Rate [Anterior Bilateral Throughout] Blood Pressure 93/67 O2 Sat by Pulse 100 100 100 Oximetry 11/08/17 11/08/17 11/08/17 07:50 07:51 08:00 Temperature Pulse Rate 97 H 101 H Pulse Rate [ 92 H Anterior Bilateral Throughout] Respiratory 25 H 29 H Rate Respiratory 20 Rate [Anterior Bilateral Throughout] Blood Pressure 117/78 88/53 O2 Sat by Pulse 100 96 Oximetry 06/11/08/17 11/08/17 08:10 08:21 08:30 Temperature Pulse Rate 103 H 100 H 101 H Pulse Rate [ Anterior Bilateral Throughout] Respiratory 29 H 25 H 25 H Rate Respiratory Rate [Anterior Bilateral Throughout] Blood Pressure 88/53 88/53 91/61 O2 Sat by Pulse 99 99 99 Oximetry 11/08/17 11/08/17 11/08/17 08:41 08:50 09:01 Temperature Pulse Rate 105 H 101 H 104 H Pulse Rate [ Anterior Bilateral Throughout] Respiratory 25 H 17 26 H Rate Respiratory Rate [Anterior Bilateral Throughout] Blood Pressure 91/61 95/58 113/76 O2 Sat by Pulse 97 100 95 Oximetry 11/08/17 11/08/17 11/08/17 09:10 09:21 09:30 Temperature Pulse Rate 107 H 109 H 113 H Pulse Rate [ Anterior Bilateral Throughout] Respiratory 33 H 29 H 22 Rate Respiratory Rate [Anterior Bilateral Throughout] Blood Pressure 94/68 101/72 107/75 O2 Sat by Pulse 99 100 100 Oximetry 11/08/17 11/08/17 11/08/17 09:41 09:51 10:00 Temperature Pulse Rate 110 H 110 H 115 H Pulse Rate [ Anterior Bilateral Throughout] Respiratory 34 H 34 H 39 H Rate Respiratory Rate [Anterior Bilateral Throughout] Blood Pressure 107/75 116/80 111/70 O2 Sat by Pulse 100 100 99 Oximetry 11/08/17 11/08/17 11/08/17 10:11 10:21 10:30 Temperature Pulse Rate 118 H 102 H 101 H Pulse Rate [ Anterior Bilateral Throughout] Respiratory 37 H 29 H 23 Rate Respiratory Rate [Anterior Bilateral Throughout] Blood Pressure 111/70 103/79 112/79 O2 Sat by Pulse 100 100 100 Oximetry 11/08/17 11/08/17 11/08/17 10:41 10:51 11:00 Temperature Pulse Rate 98 H 100 H 97 H Pulse Rate [ Anterior Bilateral Throughout] Respiratory 20 23 21 Rate Respiratory Rate [Anterior Bilateral Throughout] Blood Pressure 112/79 113/73 115/80 O2 Sat by Pulse 100 100 100 Oximetry General appearance: Present: no acute distress, cachectic, disheveled - EENT Eyes: PERRL, EOM intact ENT: hearing intact - Neck Neck: supple - Respiratory Respiratory effort: normal Respiratory: bilateral: CTA - Cardiovascular Rhythm: regular Heart Sounds: Present: S1 & S2 - Labs CBC & Chem 7: 06/23/18 10:24 11/07/17 10:24 Labs: Abnormal lab results 11/05/17 Range/Units 13:03 Crossmatch See Detail
[2017-11-08] MEDS ORDERED: SENOKOT S PO PRN (13:02)
--- NOTE | 2017-11-08 13:24 | Gastroenterology Progress Note ---
Assessment and Plan GI: s/p EGD w/ bleeding therapy - no further signs bleeding - h/h stable follow - po diet and advance as tolerated - ok to transfer to follow and d/c am if stable -unless change in status no need further GI input at this time, call if needed Subjective Date of service: 11/08/17 Interval history: - no further signs bleeding overnight Objective - Constitutional Vitals: Temp Pulse Resp BP Pulse Ox 97.6 F 101 H 26 H 105/72 100 11/08/17 03:46 11/08/17 13:00 11/08/17 13:00 11/08/17 13:00 11/08/17 12:51 General appearance: no acute distress - EENT Eyes: PERRL - Respiratory Respiratory: bilateral: CTA - Cardiovascular Rhythm: regular Heart Sounds: Present: S1 & S2 - Gastrointestinal General gastrointestinal: Present: soft, non-tender, non-distended - Labs CBC & Chem 7: 11/07/17 10:24 11/07/17 10:24 Labs: Laboratory Results - last 24 hr 11/05/17 13:03 Blood Type B POSITIVE Antibody Screen Negative Crossmatch See Detail
[2017-11-08] MEDS: MIRALAX 3350 PO SCH (13:26)
[2017-11-08] MEDS: SODIUM CHLORIDE FLUSH SYRINGE 10 ML IV SCH ×2 (13:28→22:19)
[2017-11-08] MEDS: HABITROL TD SCH (14:09)
[2017-11-09] MEDS: DUONEB *Not for PRN Use IH SCH ×4 (03:19→19:03)
[2017-11-09] MEDS: PROTONIX PO SCH (11:58)
[2017-11-09] MEDS: COLACE PO SCH (11:58)
[2017-11-09] MEDS: MIRALAX 3350 PO SCH (11:58)
[2017-11-09] MEDS: HABITROL TD SCH (11:58)
[2017-11-09] MEDS: SODIUM CHLORIDE FLUSH SYRINGE 10 ML IV SCH (11:59)
--- NOTE | 2017-11-09 14:54 | Discharge Summary ---
Providers - Providers Date of Admission: 11/05/17 15:40 Attending physician: HOLDEN REYES MD 11/05/17 15:21 Consult to Physician [CONS] Routine Comment: Consulting Provider: SAUNDRA BOLDEN Physician Instructions: Reason For Exam: gi bleed Primary care physician: [facility] Hospitalization Condition: Critical Hospital course: 67-year-old male presents for emergency room because of black stools and shortness of breath for 2 days. Patient was recently treated at [place] for diastolic heart failure and pulmonary embolism. Patient is on XARELTO for the pulmonary embolism. Patient noticed black stools for the last 2 days. Patient is a poor historian. Patient complains of dizziness and weakness especially was standing. No chest pain. History of CHF and pulmonary embolism and hypertension present. No recent travel. The patient was an extremely poor historian, stated that he followed with [facility] cardiology for heart problems. He was initially had problems with his bowels or with his stents. He was admitted with upper GI bleed and melena he went on to have an upper endoscopy, he had an AVM which was treated. He received multiple blood transfusions for anemia. He was medically optimized. He was also found to have hypotension which is most likely due to poor resuscitation, he was resuscitated with IV fluids and blood, he also received pressors and steroids. He is being discharged on the steroid taper for presumed adrenal insufficiency. His kidney function returned to normal with resuscitation. He was found to have nonsustained V. tach. The patient was seen by cardiology, he was put on a beta ji, he's a follow-up with [facility] cardiology. Of note his blood thinners were held due to acute GI bleed and anemia. He's a follow-up with his doctors at [facility] for her to be restarted within a week. Discharge diagnoses Upper GI bleed with melena Acute blood loss anemia Acute kidney injury due to vasomotor nephropathy and ATN History of peptic ulcer CHF, diastolic NSVT Pulmonary embolism Hyponatremia Hypovolemic shock Adrenal insufficiency Disposition: DC- TO HOME OR SELFCARE Time spent for discharge: 33 minutes Core Measure Documentation - Palliative Care Palliative Care/ Comfort Measures: Not Applicable - Core Measures Any of the following diagnoses?: none Exam - Constitutional Vitals: Temp Pulse Resp BP Pulse Ox 97.6 F 112 H 18 106/75 98 11/09/17 11:44 11/09/17 14:35 11/09/17 14:35 11/09/17 11:44 11/09/17 11:44 General appearance: Present: no acute distress, well-nourished - EENT Eyes: Present: PERRL ENT: hearing intact, clear oral mucosa - Neck Neck: Present: supple, normal ROM - Respiratory Respiratory effort: normal Respiratory: bilateral: CTA - Cardiovascular Heart Sounds: Present: S1 & S2. Absent: rub, click - Extremities Extremities: pulses symmetrical, No edema Peripheral Pulses: within normal limits - Abdominal General gastrointestinal: Present: soft, non-tender, non-distended, normal bowel sounds Male genitourinary: Present: normal - Integumentary Integumentary: Present: clear, warm, dry - Musculoskeletal Musculoskeletal: gait normal, strength equal bilaterally - Psychiatric Psychiatric: appropriate mood/affect, intact judgment & insight - Neurologic Neurologic: CNII-XII intact, moves all extremities Plan Additional Instructions: pls see your doctor within a week to see about restarting your aspirin and xarelto (blood thinner) Follow up with: PRIMARY CARE,MD [Primary Care Provider] - 7 Days Prescriptions: Sennosides/Docusate [Senokot S] 2 tab PO QHS PRN #60 tablet PRN Reason: Laxative Effect Metoprolol [Lopressor TAB] 50 mg PO TID #90 tablet Nicotine [Habitrol] 7 mg TD QDAY #30 patch Pantoprazole [Protonix TAB] 40 mg PO DAILY #30 tablet Polyethylene Glycol 3350 [Miralax 3350] 17 gm PO QDAY #30 powd.pack Prednisone [predniSONE 5 mg (6-Day Pack, 21 Tabs)] 5 mg PO .TAPER #1 tab.ds.pk
[2017-11-09] MEDS: TYLENOL PO PRN (15:27)
[2017-11-09 16:09] LABS: Hematocrit 28.7 % (35.5-45.6); Hemoglobin 9.4 gm/dl (11.8-15.2)
[2017-11-09] MEDS: LOPRESSOR PO SCH (20:30)
[2017-11-09] MEDS ORDERED: NACL 0.9% 1000 ML 1,000 ML IV ONE (22:40)
[2017-11-10] MEDS: LOPRESSOR PO SCH ×4 (00:13→20:29)
[2017-11-10] MEDS: COLACE PO SCH ×3 (00:13→21:47)
[2017-11-10] MEDS: SODIUM CHLORIDE FLUSH SYRINGE 10 ML IV SCH ×3 (00:18→21:47)
[2017-11-10 01:11] LABS: Hematocrit 28.1 % (35.5-45.6); Lymphocytes # (Auto) 0.3 K/mm3 (1.2-5.4); Lymphocytes % (Auto) 2.4 % (13.4-35.0); Mean Corpuscular HGB Conc 32 % (32-34); Mean Corpuscular Hemoglobin 31 pg (28-32); Mean Corpuscular Volume 97 fl (84-94); Monocytes # (Auto) 1.1 K/mm3 (0.0-0.8); Monocytes % (Auto) 8.8 % (0.0-7.3); Platelet Count 244 K/mm3 (140-440); Red Blood Count 2.91 M/mm3 (3.65-5.03); Red Cell Distribution Width 19.9 % (13.2-15.2)
[2017-11-10] MEDS: DUONEB *Not for PRN Use IH SCH ×4 (02:21→19:16)
[2017-11-10 03:32] LABS: Calcium 8.6 mg/dL (8.4-10.2); Hemolysis Index 8
[2017-11-10 04:13] LABS: BUN/Creatinine Ratio 23; Blood Urea Nitrogen 18 mg/dL (9-20)
[2017-11-10 06:10] LABS: BUN/Creatinine Ratio 23; Blood Urea Nitrogen 18 mg/dL (9-20); Calcium 8.9 mg/dL (8.4-10.2); Hemolysis Index 3
[2017-11-10] MEDS: PROTONIX PO SCH (10:55)
[2017-11-10] MEDS: HABITROL TD SCH (10:55)
[2017-11-10] MEDS: MIRALAX 3350 PO SCH (10:56)
--- NOTE | 2017-11-10 12:37 | Consultation ---
History of Present Illness Consult date: 11/10/17 Consult reason: other (NSVT) History of present illness: This is a 67yr old male that is followed by the DC. He gives a history of mitral valve disease who underwent bioprosthetic mitral valve replacement in 2004. Patient denies a history of coronary artery disease and did not require bypass surgery at the time of his valve replacement. Patient also has a history of pulmonary embolus and is on xarelto for oral anticoagulation. Patient was admitted 5 days ago with severe anemia and GI bleed. A cardiac consultation was requested for arrhythmias. Review of his telemetry strips shows multiple episodes of NSVT overnight. The nurse also reported the patient appeared to have a seizure overnight. There were no reports of chest pain or shortness of breath. He has a normal TSH and serum magnesium. Beta blockers were added to his medical regimen and there has been no reoccurrence of arrhythmias. Medications and Allergies Allergies Allergy/AdvReac Type Severity Reaction Status Date / Time No Known Allergies Allergy Verified 01/23/14 23:59 Home Medications Medication Instructions Recorded Confirmed Last Taken Type Nicotine [Habitrol] 7 mg TD QDAY #30 patch 11/09/17 Unknown Rx Pantoprazole [Protonix TAB] 40 mg PO DAILY #30 tablet 11/09/17 Unknown Rx Polyethylene Glycol 3350 [Miralax 17 gm PO QDAY #30 powd.pack 11/09/17 Unknown Rx 3350] Prednisone [predniSONE 5 mg (6-Day 5 mg PO .TAPER #1 tab.ds.pk 11/09/17 Unknown Rx Pack, 21 Tabs)] Sennosides/Docusate [Senokot S] 2 tab PO QHS PRN #60 tablet 11/09/17 Unknown Rx Active Meds: Active Medications Acetaminophen (Tylenol) 650 mg PO Q4H PRN PRN Reason: Pain MILD(1-3)/Fever >100.5/ Last Admin: 11/09/17 15:27 Dose: 650 mg Albuterol (Proventil) 2.5 mg IH Q4HRT PRN PRN Reason: Shortness Of Breath Albuterol/Ipratropium (Duoneb *Not For Prn Use*) 1 ampul IH Q6HRT [facility] Last Admin: 11/10/17 08:15 Dose: 1 ampul Docusate Sodium (Colace) 100 mg PO BID [facility] Last Admin: 11/10/17 10:53 Dose: 100 mg Sodium Chloride (Nacl 0.9% 1000 Ml) 1,000 mls @ 50 mls/hr IV DIRECT [facility] Methylprednisolone Sodium Succinate (Solu-Medrol) 40 mg IV Q8HR [facility] Last Admin: 11/10/17 07:08 Dose: 40 mg Metoclopramide HCl (Reglan) 5 mg IV Q6H PRN PRN Reason: Nausea And Vomiting Metoprolol Tartrate (Lopressor) 25 mg PO TID [facility] Last Admin: 11/10/17 10:53 Dose: 25 mg Morphine Sulfate (Morphine) 2 mg IV Q4H PRN PRN Reason: Pain, Moderate (4-6) Nicotine (Habitrol) 7 mg TD QDAY [facility] Last Admin: 11/10/17 10:55 Dose: 7 mg Ondansetron HCl (Zofran) 4 mg IV Q8H PRN PRN Reason: Nausea And Vomiting Pantoprazole Sodium (Protonix) 40 mg PO DAILY [facility] Last Admin: 11/10/17 10:55 Dose: 40 mg Polyethylene Glycol (Miralax 3350) 17 gm PO QDAY [facility] Last Admin: 11/10/17 10:56 Dose: 17 gm Senna/Docusate Sodium (Senokot S) 2 tab PO QHS PRN PRN Reason: Laxative Effect Sodium Chloride (Sodium Chloride Flush Syringe 10 Ml) 10 ml IV BID [facility] Last Admin: 11/10/17 10:56 Dose: 10 ml Sodium Chloride (Sodium Chloride Flush Syringe 10 Ml) 10 ml IV PRN PRN PRN Reason: LINE FLUSH Physical Examination Vital Signs Temp Pulse Resp BP Pulse Ox 98.4 F 73 21 85/49 99 11/05/17 12:01 11/05/17 12:01 11/05/17 12:01 11/05/17 12:01 11/05/17 12:01 General appearance: no acute distress HEENT: Positive: PERRL Cardiac: Positive: Reg Rate and Rhythm Neuro: Positive: Grossly Intact Results 11/10/17 00:36 11/10/17 04:41 CBC 11/09/17 11/10/17 Range/Units 15:48 00:36 WBC 12.3 H (4.5-11.0) K/mm3 RBC 2.91 L (3.65-5.03) M/mm3 Hgb 9.4 L 9.0 L (11.8-15.2) gm/dl Hct 28.7 L 28.1 L (35.5-45.6) % Plt Count 244 (140-440) K/mm3 Lymph # 0.3 L (1.2-5.4) K/mm3 [place] # 1.1 H (0.0-0.8) K/mm3 Eos # 0.0 (0.0-0.4) K/mm3 Baso # 0.0 (0.0-0.1) K/mm3 Comprehensive Metabolic Panel 11/10/17 11/10/17 Range/Units 00:36 04:41 Sodium 133 L 136 L (137-145) mmol/L Potassium 4.2 4.1 (3.6-5.0) mmol/L Chloride 97.1 L 99.1 (98-107) mmol/L Carbon Dioxide 18 L 19 L (22-30) mmol/L BUN 18 18 (9-20) mg/dL Creatinine 0.8 0.8 (0.8-1.5) mg/dL Glucose 122 H 110 H (75-100) mg/dL Calcium 8.6 8.9 (8.4-10.2) mg/dL Assessment and Plan Acute GI bleed Anemia s/p transfusion of PRBCs Hx of PE -xarelto discontinued in the setting of severe anemia and GI bleed Hx of Bio-prosthetic MV replacement in 2004 per pt echocardiogram reports severe mitral valve calcification with severe mitral valve leaflet restriction. There is severe pulmonary hypertension, RSVP 73mmHg. Normal LVEF 55%. NSVT
--- NOTE | 2017-11-10 18:34 | Progress Note ---
Assessment and Plan Assessment and plan: 67-year-old male presents for emergency room because of black stools and shortness of breath for 2 days. Patient was recently treated at [place] for diastolic heart failure and pulmonary embolism. Patient is on XARELTO for the pulmonary embolism. Patient noticed black stools for the last 2 days. Patient is a poor historian. Patient complains of dizziness and weakness especially was standing. No chest pain. History of CHF and pulmonary embolism and hypertension present. No recent travel. Admits to hx of heart problems with his valves? and thinks he had a stent? Imaging and Cardiology: IMPRESSION: Small bilateral pleural effusions layering posteriorly with adjacent slight atelectasis and/or pneumonitis Prominent bowel gas throughout small and large intestine suspicious for paralytic ileus and/or enteritis Coronary artery calcification Borderline hepatomegaly without focal lesion Cholelithiasis Enlarged prostate with mass effect on the urinary bladder base Prominent stool may reflect constipation UGIB with melena SP GI scope, AVM was rx continue PPI Acute blood loss anemia transfused BRIANA iVF and blood tx, improving Hx of PUD continue PPI CHF appears hypovolemic, continue rescuscitation; echo shows preserved EF NSVT cardiology consult Pulmonary embolism Xarelto on hold due to GIB, should be restarted by his PCP when stable Hyponatremia NS, diuretics were dc Hypotension/ Hypovolemic shock weaned off pressors, continue steroid taper History Interval history: no more bloody stools admits weakness now c/o sob no chills or fevers Hospitalist Physical - Physical exam Narrative exam: General.: Appears well, no distress, nontoxic, cachectic HEENT: Moist mucous membranes, extraocular muscles intact, no lymphadenopathy Neck: supple Cardiac: S1-S2 heard Lungs: clear to auscultation bilaterally Abdomen: soft , nontender, nondistended, bowel sounds positive Extremities: no edema clubbing or cyanosis Skin: no rash or lesions Neurologic: no gross focal deficits Psych: appropriate behavior, appropriate mood, corporative, judgment intact - Constitutional Vitals: Temp Pulse Resp BP Pulse Ox 97.9 F 98 H 18 112/82 100 11/10/17 16:38 11/10/17 16:38 11/10/17 16:38 11/10/17 16:38 11/10/17 16:38 General appearance: Present: no acute distress, disheveled Results - Labs CBC & Chem 7: 11/10/17 00:36 11/10/17 04:41 Labs: Laboratory Last Values WBC 12.3 K/mm3 (4.5-11.0) H 11/10/17 00:36 RBC 2.91 M/mm3 (3.65-5.03) L 11/10/17 00:36 Hgb 9.0 gm/dl (11.8-15.2) L 11/10/17 00:36 Hct 28.1 % (35.5-45.6) L 11/10/17 00:36 MCV 97 fl (84-94) H 11/10/17 00:36 MCH 31 pg (28-32) 11/10/17 00:36 MCHC 32 % (32-34) 11/10/17 00:36 RDW 19.9 % (13.2-15.2) H 11/10/17 00:36 Plt Count 244 K/mm3 (140-440) 11/10/17 00:36 Lymph % (Auto) 2.4 % (13.4-35.0) L 11/10/17 00:36 [place] % (Auto) 8.8 % (0.0-7.3) H 11/10/17 00:36 Eos % (Auto) 0.0 % (0.0-4.3) 11/10/17 00:36 Baso % (Auto) 0.0 % (0.0-1.8) 11/10/17 00:36 Lymph # 0.3 K/mm3 (1.2-5.4) L 11/10/17 00:36 [place] # 1.1 K/mm3 (0.0-0.8) H 11/10/17 00:36 Eos # 0.0 K/mm3 (0.0-0.4) 11/10/17 00:36 Baso # 0.0 K/mm3 (0.0-0.1) 11/10/17 00:36 Seg Neutrophils % 88.8 % (40.0-70.0) H 11/10/17 00:36 Seg Neutrophils # 10.9 K/mm3 (1.8-7.7) H 11/10/17 00:36 PT 14.4 Sec. (12.2-14.9) 11/07/17 10:24 INR 1.06 (0.87-1.13) 11/07/17 10:24 APTT 28.0 Sec. (24.2-36.6) 11/07/17 10:24 D-Dimer 136.11 ng/mlDDU (0-234) 11/05/17 12:23 VBG pH 7.371 (7.320-7.420) 11/05/17 13:03 Sodium 136 mmol/L (137-145) L 11/10/17 04:41 Potassium 4.1 mmol/L (3.6-5.0) 11/10/17 04:41 Chloride 99.1 mmol/L (98-107) 11/10/17 04:41 Carbon Dioxide 19 mmol/L (22-30) L 11/10/17 04:41 Anion Gap 22 mmol/L 11/10/17 04:41 BUN 18 mg/dL (9-20) 11/10/17 04:41 Creatinine 0.8 mg/dL (0.8-1.5) 11/10/17 04:41 Estimated GFR > 60 ml/min 11/10/17 04:41 BUN/Creatinine Ratio 23 % 11/10/17 04:41 Glucose 110 mg/dL (75-100) H 11/10/17 04:41 POC Glucose 97 (70-105) 11/07/17 08:24 Lactic Acid 2.30 mmol/L (0.7-2.0) H* 11/05/17 22:59 Calcium 8.9 mg/dL (8.4-10.2) 11/10/17 04:41 Magnesium 2.30 mg/dL (1.7-2.3) 11/10/17 04:41 Total Bilirubin 2.90 mg/dL (0.1-1.2) H 11/07/17 10:24 AST 50 units/L (5-40) H 11/07/17 10:24 ALT 28 units/L (7-56) 11/07/17 10:24 Alkaline Phosphatase 81 units/L (35-129) 11/07/17 10:24 Total Creatine Kinase 39 units/L (55-170) L 11/05/17 12:23 CK-MB (CK-2) 1.3 ng/mL (0.0-4.0) 11/05/17 12:23 CK-MB (CK-2) Rel Index 3.3 (0-4) 11/05/17 12:23 Troponin T < 0.010 ng/mL (0.00-0.029) 11/05/17 12:23 Total Protein 6.2 g/dL (6.3-8.2) L 11/07/17 10:24 Albumin 3.1 g/dL (3.9-5) L 11/07/17 10:24 Albumin/Globulin Ratio 1.0 % 11/07/17 10:24 TSH 1.350 mlU/mL (0.270-4.200) 11/10/17 10:15 Urine Color Yellow (Yellow) 11/05/17 12:46 Urine Turbidity Clear (Clear) 11/05/17 12:46 Urine pH 5.0 (5.0-7.0) 11/05/17 12:46 Ur Specific [place] 1.010 (1.003-1.030) 11/05/17 12:46 Urine Protein <15 mg/dl mg/dL (Negative) 11/05/17 12:46 Urine Glucose (UA) Neg mg/dL (Negative) 11/05/17 12:46 Urine Ketones Neg mg/dL (Negative) 11/05/17 12:46 Urine Blood Neg (Negative) 11/05/17 12:46 Urine Nitrite Neg (Negative) 11/05/17 12:46 Urine Bilirubin Neg (Negative) 11/05/17 12:46 Urine Urobilinogen 2.0 mg/dL (<2.0) 11/05/17 12:46 Ur Leukocyte Esterase Neg (Negative) 11/05/17 12:46 Urine WBC (Auto) 1.0 /HPF (0.0-6.0) 11/05/17 12:46 Urine RBC (Auto) 1.0 /HPF (0.0-6.0) 11/05/17 12:46 Hyaline Casts 29 /LPF 11/05/17 12:46 Blood Type B POSITIVE 11/05/17 13:03 Antibody Screen Negative 11/05/17 13:03 Crossmatch See Detail 11/05/17 13:03
[2017-11-11] MEDS: DUONEB *Not for PRN Use IH SCH ×3 (01:48→13:41)
--- NOTE | 2017-11-11 09:50 | Progress Note ---
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 There are no old comparative ECGs to determine whether this represented acute ischemia. 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 In addition, there is severe pulmonary hypertension with pulmonary artery systolic pressures estimated at 73 mmHg. Recommendations: Obtain cardiac records from the [facility] and [facility]. Continue beta blockers for suppression of NSVT. Further cardiac evaluation particularly with respect to pulmonary hypertension and the stenotic mitral valve prosthesis, will be continued at his primary outpatient cardiac follow-up. Subjective Date of service: 11/11/17 Interval history: Patient has no cardiac complaints. He denies palpitations, chest pain and shortness of breath. No reported events on telemetry overnight. Objective Vital Signs Temp Pulse Pulse Pulse Pulse Resp Resp 11/11/17 09:03 92 H 11/11/17 08:00 97.6 F 11/11/17 07:51 88 16 11/11/17 07:36 89 16 11/11/17 07:35 89 20 11/11/17 06:10 97.5 F L 92 H 19 11/11/17 01:52 97.5 F L 90 18 11/10/17 22:50 100 H 20 11/10/17 20:29 100 H 11/10/17 20:07 103 H 11/10/17 19:58 98.9 F 100 H 18 11/10/17 19:26 97 H 18 11/10/17 19:16 94 H 18 11/10/17 16:38 97.9 F 98 H 18 11/10/17 13:36 88 20 11/10/17 13:25 90 90 20 11/10/17 11:58 54 L 11/10/17 10:53 97 H 11/10/17 10:00 112 H 24 Resp BP BP Pulse Ox 11/11/17 09:03 11/11/17 08:00 11/11/17 07:51 11/11/17 07:36 98 11/11/17 07:35 103/76 99 11/11/17 06:10 101/76 88 11/11/17 01:52 109/80 100 11/10/17 22:50 96 11/10/17 20:29 104/72 11/10/17 20:07 11/10/17 19:58 104/72 96 11/10/17 19:26 11/10/17 19:16 100 11/10/17 16:38 112/82 100 11/10/17 13:36 11/10/17 13:25 20 11/10/17 11:58 93/72 65 L 11/10/17 10:53 102/70 11/10/17 10:00 - Physical Examination General: No Apparent Distress HEENT: Positive: PERRL Cardiac: Positive: Reg Rate and Rhythm Lungs: Positive: Decreased Breath Sounds Neuro: Positive: Grossly Intact Extremities: Absent: normal
[2017-11-11] MEDS: LOPRESSOR PO SCH (10:40)
[2017-11-11] MEDS: HABITROL TD SCH (10:41)
[2017-11-11] MEDS: MIRALAX 3350 PO SCH (10:41)
[2017-11-11] MEDS: PROTONIX PO SCH (10:41)
[2017-11-11] MEDS: COLACE PO SCH (10:41)
[2017-11-11] MEDS: SODIUM CHLORIDE FLUSH SYRINGE 10 ML IV SCH (10:42)
[2017-11-11 12:26] VITALS: BP 92/68
== END 2017-11-11 16:30 | disposition home or self-care (01) | DRG 377 ==
LOC: ED 11:13 → 4A 15:40 → CC1 16:42 → 4A 11-08 17:57
PROVIDERS: ADMIT Internal Medicine; ATTEND Internal Medicine
PROC: 30233N1 Transfusion of Nonautologous Red Blood Cells into Peripheral Vein, Percutaneous Approach (ICD-10-PCS; 2017-11-05)
PROC: 0DJ08ZZ Inspection of Upper Intestinal Tract, Via Natural or Artificial Opening Endoscopic (ICD-10-PCS; principal; 2017-11-06)
PROC: 30233L1 Transfusion of Nonautologous Fresh Plasma into Peripheral Vein, Percutaneous Approach (ICD-10-PCS; 2017-11-06)
PROC: 30233K1 Transfusion of Nonautologous Frozen Plasma into Peripheral Vein, Percutaneous Approach (ICD-10-PCS; 2017-11-06)
DX: K29.71 Gastritis, unspecified, with bleeding (principal); N17.0 Acute kidney failure with tubular necrosis; R57.1 Hypovolemic shock; I50.30 Unspecified diastolic (congestive) heart failure; D62 Acute posthemorrhagic anemia; I47.1 Supraventricular tachycardia; E87.1 Hypo-osmolality and hyponatremia; E27.40 Unspecified adrenocortical insufficiency; I95.9 Hypotension, unspecified; F17.200 Nicotine dependence, unspecified, uncomplicated; J44.9 Chronic obstructive pulmonary disease, unspecified; K21.9 Gastro-esophageal reflux disease without esophagitis; K44.9 Diaphragmatic hernia without obstruction or gangrene; I11.0 Hypertensive heart disease with heart failure; I25.10 Atherosclerotic heart disease of native coronary artery without angina pectoris; R94.31 Abnormal electrocardiogram [ECG] [EKG]; I27.20 Pulmonary hypertension, unspecified; Z79.899 Other long term (current) drug therapy; Z86.711 Personal history of pulmonary embolism; Z95.4 Presence of other heart-valve replacement; Z95.5 Presence of coronary angioplasty implant and graft; Z87.11 Personal history of peptic ulcer disease; Z82.49 Family history of ischemic heart disease and other diseases of the circulatory system
CPT/HCPCS: 36415; 36430; 71045; 74176; 80048; 80053; 81001; 82140; 82550; 82553; 82805; 82962; 83735; 84443; 84484; 85014; 85018; 85025; 85027; 85379; 85610; 85730; 86850; 86900; 86901; 86920; 87040; 87086; 93005; 93010; 93306; 94640; 94760; 96361; 96374; 96375; 99406; C9113; J1720; J2405; J2543; J2704; J2920; J7030; J7040; P9016; P9017

== ENCOUNTER 2017-12-01 07:23 | Inpatient (IN) | payer OTHER ==
[2017-12-01] MEDS ORDERED: NACL 0.9% 500 ML 500 ML IV ONE ×3 (07:43→11:19)
[2017-12-01] MEDS ORDERED: NACL 0.9% 1000 ML 2,000 ML IV ONE (08:13)
[2017-12-01] MEDS ORDERED: DECADRON IV ONE (08:13)
[2017-12-01] MEDS ORDERED: PROTONIX IV ONE (08:13)
--- NOTE | 2017-12-01 08:15 | Emergency Department Report ---
ED General Adult HPI - General Chief complaint: Dyspnea/Respdistress Stated complaint: WEAKNESS/GOPI Time Seen by Provider: 12/01/17 08:02 Source: patient, EMS (ems notes not available at time of chart dictation), RN notes reviewed, old records reviewed Mode of arrival: Stretcher Limitations: Other (patient is probably demented and is a poor historian) - History of Present Illness Initial comments: This is a 67-year-old male who was unknown to this provider previously, admitted to the hospital last month for presumed upper GI bleed with melena, acute blood loss anemia, acute renal insufficiency, nonsustained ventricular tachycardia, adrenal insufficiency, also has a history of diastolic congestive heart failure, as well as pulmonary embolism, has a past history of being on xarelto Patient cannot tell me when he was last on his anticoagulation. Patient had a prolonged hospital course last month, please see his discharge summary from for the full details of his previous hospital course. He is brought to the hospital today by EMS for weakness. Patient cannot describe exacerbating or relieving factors. He is not sure if he is having shortness of breath or chest pain. He is not sure if he is having black tarry stool. No additional information is available at this time, no family is available for collateral information. -: unknown Radiation: other (per hpi) Quality: other (per hpi) Consistency: other (per hpi) Improves with: other (per hpi) Worsens with: other (per hpi) Associated Symptoms: confusion, weakness, other (per hpi) - Related Data Previous Rx's Medication Instructions Recorded Last Taken Type Nicotine [Habitrol] 7 mg TD QDAY #30 patch 11/09/17 Unknown Rx Pantoprazole [Protonix TAB] 40 mg PO DAILY #30 tablet 11/09/17 Unknown Rx Polyethylene Glycol 3350 [Miralax 17 gm PO QDAY #30 powd.pack 11/09/17 Unknown Rx 3350] Prednisone [predniSONE 5 mg (6-Day 5 mg PO .TAPER #1 tab.ds.pk 11/09/17 Unknown Rx Pack, 21 Tabs)] Sennosides/Docusate [Senokot S] 2 tab PO QHS PRN #60 tablet 11/09/17 Unknown Rx Metoprolol [Lopressor TAB] 50 mg PO TID #90 tablet 11/11/17 Unknown Rx Allergies Allergy/AdvReac Type Severity Reaction Status Date / Time No Known Allergies Allergy Verified 01/23/14 23:59 ED Review of Systems ROS: Stated complaint: WEAKNESS/GOPI Other details as noted in HPI Comment: Unobtainable due to pts medical conditions ED Past Medical Hx - Past Medical History Previous Medical History?: Yes Hx Hypertension: Yes Hx Congestive Heart Failure: Yes Hx Renal Disease: Yes (acute renal insufficiency) Hx COPD: Yes Additional medical history: MITRAL VALVE STENOSIS, CHF, GERD, HCV - Surgical History Additional Surgical History: valve replacement - Social History Smoking Status: Current Some Day Smoker Substance Use Type: Alcohol - Medications Home Medications: Home Medications Medication Instructions Recorded Confirmed Last Taken Type Nicotine [Habitrol] 7 mg TD QDAY #30 patch 11/09/17 Unknown Rx Pantoprazole [Protonix TAB] 40 mg PO DAILY #30 tablet 11/09/17 Unknown Rx Polyethylene Glycol 3350 [Miralax 17 gm PO QDAY #30 powd.pack 11/09/17 Unknown Rx 3350] Prednisone [predniSONE 5 mg (6-Day 5 mg PO .TAPER #1 tab.ds.pk 11/09/17 Unknown Rx Pack, 21 Tabs)] Sennosides/Docusate [Senokot S] 2 tab PO QHS PRN #60 tablet 11/09/17 Unknown Rx Metoprolol [Lopressor TAB] 50 mg PO TID #90 tablet 11/11/17 Unknown Rx ED Physical Exam - General Limitations: Other (patient is a poor historian) General appearance: alert, in no apparent distress - Head Head exam: Present: atraumatic, normocephalic - Eye Eye exam: Present: normal appearance, EOMI - ENT ENT exam: Present: normal orophraynx, mucous membranes dry, normal external ear exam - Neck Neck exam: Present: normal inspection, full ROM - Respiratory Respiratory exam: Present: normal lung sounds bilaterally. Absent: respiratory distress - Cardiovascular Cardiovascular Exam: Present: regular rate, normal rhythm, normal heart sounds. Absent: bradycardia, tachycardia, irregular rhythm, systolic murmur, diastolic murmur, rubs, gallop - GI/Abdominal GI/Abdominal exam: Present: soft, tenderness, normal bowel sounds. Absent: distended, guarding, rebound, rigid - Rectal Rectal exam: Present: normal inspection, heme (+) stool, black stool - Extremities Exam Extremities exam: Present: normal inspection, full ROM, normal capillary refill , other (2+ pulses noted in the bilateral upper, lower extremities. Compartments soft. No long bony tenderness. The pelvis is stable.). Absent: pedal edema, joint swelling, calf tenderness - Back Exam Back exam: Present: normal inspection, full ROM. Absent: paraspinal tenderness , vertebral tenderness - Neurological Exam Neurological exam: Present: alert (unable to perform full assessment of cranial nerves and sensory exam as patient does not have capacity to participate in the examination), other (Extraocular movements intact. Tongue midline. No facial droop. Facial sensation intact to light touch in the V1, V2, V3 distribution bilaterally. 5 and 5 strength in 4 extremities.. Sensation is intact to light touch in 4 extremities.). Absent: motor sensory deficit - Psychiatric Psychiatric exam: Present: normal affect, normal mood - Skin Skin exam: Present: warm, dry, intact, normal color. Absent: rash ED Course Vital Signs 12/01/17 12/01/17 12/01/17 07:33 07:45 08:00 Temperature 97.6 F Pulse Rate 96 H 96 H 100 H Respiratory 32 H 24 32 H Rate Blood Pressure 87/55 88/60 88/60 O2 Sat by Pulse 94 100 Oximetry 12/01/17 12/01/17 12/01/17 08:15 08:58 09:00 Temperature Pulse Rate 98 H 98 H Respiratory 31 H 14 25 H Rate Blood Pressure 87/57 87/57 76/53 O2 Sat by Pulse 94 Oximetry 12/01/17 12/01/17 12/01/17 09:15 09:30 09:45 Temperature Pulse Rate 96 H 97 H 94 H Respiratory 27 H 36 H 29 H Rate Blood Pressure 86/57 81/52 78/55 O2 Sat by Pulse 97 100 Oximetry 12/01/17 12/01/17 12/01/17 10:00 10:15 10:30 Temperature Pulse Rate 94 H 96 H 112 H Respiratory 30 H 34 H 44 H Rate Blood Pressure 84/59 71/45 77/46 O2 Sat by Pulse 99 100 100 Oximetry 12/01/17 12/01/17 12/01/17 10:46 11:00 11:15 Temperature Pulse Rate 119 H 109 H 107 H Respiratory 9 L 16 16 Rate Blood Pressure 80/37 90/36 95/63 O2 Sat by Pulse 100 99 Oximetry 12/01/17 12/01/17 12/01/17 11:30 11:33 11:45 Temperature 96.8 F L Pulse Rate 109 H 110 H 114 H Respiratory 16 16 17 Rate Blood Pressure 87/58 87/58 111/80 O2 Sat by Pulse 98 100 100 Oximetry 12/01/17 12/01/17 12/01/17 11:48 11:55 12:00 Temperature 98.5 F Pulse Rate 114 H 114 H 114 H Respiratory 16 19 Rate Blood Pressure 120/87 120/87 121/88 O2 Sat by Pulse 100 100 100 Oximetry 12/01/17 12/01/17 12/01/17 12:16 12:18 12:30 Temperature 98 F Pulse Rate 112 H 112 H 113 H Respiratory 18 16 18 Rate Blood Pressure 127/94 127/84 135/93 O2 Sat by Pulse 98 98 99 Oximetry 12/01/17 12/01/17 12/01/17 12:45 12:48 13:00 Temperature 97.5 F L Pulse Rate 111 H 111 H 110 H Respiratory 18 16 18 Rate Blood Pressure 123/91 123/91 124/88 O2 Sat by Pulse 98 100 Oximetry 12/01/17 12/01/17 12/01/17 13:15 13:18 13:30 Temperature 97.5 F L Pulse Rate 110 H 110 H 108 H Respiratory 18 16 18 Rate Blood Pressure 125/92 125/92 129/92 O2 Sat by Pulse 100 98 Oximetry 12/01/17 12/01/17 12/01/17 13:45 13:48 13:58 Temperature 97.6 F 97.5 F L Pulse Rate 109 H 108 H 108 H Respiratory 18 16 16 Rate Blood Pressure 125/90 120/92 118/55 O2 Sat by Pulse 100 100 100 Oximetry 12/01/17 12/01/17 12/01/17 14:00 14:15 14:30 Temperature Pulse Rate 106 H 105 H 103 H Respiratory 18 18 18 Rate Blood Pressure 119/87 115/85 115/85 O2 Sat by Pulse 100 93 100 Oximetry 12/01/17 14:45 Temperature Pulse Rate 106 H Respiratory 18 Rate Blood Pressure 118/85 O2 Sat by Pulse 100 Oximetry - Reevaluation(s) Reevaluation #1: 12/01/17 08:18 Differential diagnosis, including but not limited to: Hemorrhagic shock, adrenal insufficiency, anemia, upper GI bleed Assessment and plan: 67-year-old male who is admitted to this hospital last month for adrenal insufficiency, GI bleed, hemorrhagic shock. Initially called as a code sepsis. Has hypotension, black tarry stool that is strongly guaiac positive. Based on the current objective data, patient is unlikely to be bacteremic, more likely to have hypotension secondary to recurrent adrenal insufficiency, as well as anemia. 2 large-bore IVs ordered, Protonix ordered, Decadron empirically ordered, noncontrast CT scan of the abdomen and pelvis ordered to exclude retroperitoneal hematoma, patient will require aggressive fine and probable blood transfusion, we will contact GI once his laboratory studies have resulted, low threshold for central line placement. Reevaluation #2: 12/01/17 09:11 Labs show obvious anemia. Packed red blood cell transfusion ordered. Gastroenterology paged. Hospital physician, Dr. KINSEY accepts to medical service. ct a/p interpretation Reevaluation #3: 12/01/17 09:15 CT scan of the abdomen and pelvis demonstrates no obvious retroperitoneal hematoma. Large pleural effusions noted. No obvious infiltrate noted. Elevated lactic acid is appreciated, this is most likely secondary to tissue dysoxia secondary to active upper GI bleed. Gastroenterology paged. Elevated INR is appreciated. Have initiated contact with [facility] to discuss patient's suitability for prothrombin complex concentrate. They have recommended anti-factor X A, and I'm waiting for them to call back with further recommendations. 12/01/17 15:16 Reevaluation #4: 12/01/17 09:31 Case is discussed with Dr. Sanchez, toxicology specialist at the [facility], who recommends prothrombin complex concentrate, but does not recommend fresh frozen plasma and does not recommend vitamin K reversal. I have contacted our pharmacy, and requested a stat dose of prothrombin complex concentrate and 25 units per kilogram of ideal body weight. Case was also discussed with gastroenterology, Dr. Gale, his group will see the patient in consultation. Case is presented to the Hospital physician, Dr. Kinsey, patient is accepted to the medical service. Critical care physician on-call is paced to arrange of admission to the intensive care unit. Reevaluation #5: 12/01/17 10:23 patient continues to remain hypotensive despite aggressive resuscitation. Central line will be placed. Norepinephrine is ordered. Contact a critical care physician on-call, Dr. Cerda, who agrees with triage and placement into the intensive care unit. - Consultations Consultation #1: 12/01/17 11:[address] the central line, first attempted moderate sedation with ketamine. After being given 100 mg of ketamine, the patient became agitated and was moving around the stretcher and attempted to get off. Moderate sedation attempt was aborted, and patient was intubated using rapid sequence technique and paralyzed with 100 mg of rocuronium, and subsequently intubated with a 7.5 endotracheal tube with 1 attempts, no difficulty, no obvious complications. An ultrasound-guided central line was then inserted into the right internal jugular vein using ultrasound guidance with one attempt , and no obvious complications. I recontacted gastroenterology, and discussed with Karishma Fletcher, and requested emergent GI reevaluation given change in hemodynamics and vasopressor requirements. Repeat laboratory studies, INR are pending at this time. - Central Line Placement Right IJ Consent Obtained: emergent situation Time Out Performed: Yes Patient Placed on Monitor/Pulse Ox: Yes MD Prep: mask, gown Central Line Prep: Chlorhexidine scrub, sterile drapes applied Local Anesthesia Used: Lidocaine 1% Amount of Anesthesia Used (mls): 8 Ultrasound Used for Placement: Yes Central Line Lumen Inserted: triple Bloods Obtained for Lab: No Central Line Position: good blood return, all ports aspirated, flus, sutured in place with 2-0 Dressing Applied: Tegaderm Post Procedure X-Ray: tip of catheter in good p Patient Tolerated Procedure: well Complications: none Additional Comments: Patient required emergency placement of central line, no family or friends available for informed consent, receives administrative consent from this provider. - Intubation Time Out Performed: No (emergency) Sedative: Ketamine Mg Given: 100 Paralytic: Rocuronium Mg Given: 100 Laryngoscope: Bernadette Size: 4 ET Tube Size: 7.5 Tube Secured Depth (cm): 24 Tube Secured Location: lips Tube Placement Confirmation: visualized tube passing t, equal breath sounds bilat, no breath sounds over epi, confirmation by capnometr Patient Tolerated Procedure: well Intubation Complications: none Additional Comments: Placed on a nasal cannula at 15 L/m, towel rolls place underneath the shoulder to align ear to sternal notch, and received bag valve mask ventilation after induction, before paralysis, and after paralysis, and prior to endotracheal tube placement. - Moderate Sedation Indications: other (Central line placement) Presedation Evaluation: Please see history of present illness Patient was administratively consented by this provider for moderate sedation for central line placement as the patient was becoming more delirious, and required emergency central venous access cannulation for administration of vasopressor therapy. No family was immediately available for informed consent. ASA Class: IV Mallampati Airway Score: 2 Preparation: cardiac specialist applied, pulse oximeter, capnometry used, supplemental O2 applied Ketamine Dose: 100 Patient Tolerated Procedure: other Additional Comments: Patient given ketamine, shortly thereafter, sat up in stretcher and was very agitated. Decision was therefore made to intubate for airway protection given acuity of medical conditions. Moderate sedation time from 10:35 AM to 10:38 AM. ED Medical Decision Making - Lab Data Result diagrams: 12/01/17 Unknown 12/01/17 07:59 Vital Signs 12/01/17 07:33 Temperature 97.6 F Pulse Rate 96 H Respiratory 32 H Rate Blood Pressure 87/55 O2 Sat by Pulse 99 Oximetry Lab Results 12/01/17 12/01/17 12/01/17 Range/Units 07:59 07:59 07:59 WBC 8.2 (4.5-11.0) K/mm3 RBC 2.28 L (3.65-5.03) M/mm3 Hgb 6.5 L (11.8-15.2) gm/dl Hct 21.3 L (35.5-45.6) % MCV 93 (84-94) fl MCH 29 (28-32) pg MCHC 31 L (32-34) % RDW 18.7 H (13.2-15.2) % Plt Count 343 (140-440) K/mm3 Lymph % (Auto) 12.7 L (13.4-35.0) % [place] % (Auto) 9.0 H (0.0-7.3) % Eos % (Auto) 0.4 (0.0-4.3) % Baso % (Auto) 0.7 (0.0-1.8) % Lymph # 1.0 L (1.2-5.4) K/mm3 [place] # 0.7 (0.0-0.8) K/mm3 Eos # 0.0 (0.0-0.4) K/mm3 Baso # 0.1 (0.0-0.1) K/mm3 Seg Neutrophils % 77.2 H (40.0-70.0) % Seg Neutrophils # 6.3 (1.8-7.7) K/mm3 PT 51.5 H (12.2-14.9) Sec. INR 5.09 H* (0.87-1.13) VBG pH (7.320-7.420) Sodium 137 (137-145) mmol/L Potassium 4.7 (3.6-5.0) mmol/L Chloride 97.9 L (98-107) mmol/L Carbon Dioxide 24 (22-30) mmol/L Anion Gap 20 mmol/L BUN 40 H (9-20) mg/dL Creatinine 1.4 (0.8-1.5) mg/dL Estimated GFR > 60 ml/min BUN/Creatinine Ratio 29 % Glucose 96 (75-100) mg/dL Lactic Acid (0.7-2.0) mmol/L Calcium 8.8 (8.4-10.2) mg/dL Total Bilirubin 2.70 H (0.1-1.2) mg/dL ALT 28 (7-56) units/L Alkaline Phosphatase 121 (35-129) units/L Total Protein 6.2 L (6.3-8.2) g/dL Albumin 2.9 L (3.9-5) g/dL Albumin/Globulin Ratio 0.9 % 12/01/17 12/01/17 Range/Units 07:59 07:59 WBC (4.5-11.0) K/mm3 RBC (3.65-5.03) M/mm3 Hgb (11.8-15.2) gm/dl Hct (35.5-45.6) % MCV (84-94) fl MCH (28-32) pg MCHC (32-34) % RDW (13.2-15.2) % Plt Count (140-440) K/mm3 Lymph % (Auto) (13.4-35.0) % [place] % (Auto) (0.0-7.3) % Eos % (Auto) (0.0-4.3) % Baso % (Auto) (0.0-1.8) % Lymph # (1.2-5.4) K/mm3 [place] # (0.0-0.8) K/mm3 Eos # (0.0-0.4) K/mm3 Baso # (0.0-0.1) K/mm3 Seg Neutrophils % (40.0-70.0) % Seg Neutrophils # (1.8-7.7) K/mm3 PT (12.2-14.9) Sec. INR (0.87-1.13) VBG pH 7.371 (7.320-7.420) Sodium (137-145) mmol/L Potassium (3.6-5.0) mmol/L Chloride (98-107) mmol/L Carbon Dioxide (22-30) mmol/L Anion Gap mmol/L BUN (9-20) mg/dL Creatinine (0.8-1.5) mg/dL Estimated GFR ml/min BUN/Creatinine Ratio % Glucose (75-100) mg/dL Lactic Acid 3.70 H* (0.7-2.0) mmol/L Calcium (8.4-10.2) mg/dL Total Bilirubin (0.1-1.2) mg/dL ALT (7-56) units/L Alkaline Phosphatase (35-129) units/L Total Protein (6.3-8.2) g/dL Albumin (3.9-5) g/dL Albumin/Globulin Ratio % - EKG Data -: EKG Interpreted by Ar - EKG Data 12/01/17 08:20 Normal sinus, 99 bpm, normal axis, QTC prolonged, T-wave inversion V2, V3, abnormal EKG, motion artifact. Unchanged from prior from 11/05/2017. Not a stemi - Radiology Data Radiology results: pending, report reviewed, image reviewed X-ray of the chest shows appropriate placement of central line and endotracheal tube. Critical Care Time: Yes Critical care time in (mins) excluding proc time.: 120 Critical care attestation.: If time is entered above; I have spent that time in minutes in the direct care of this critically ill patient, excluding procedure time. ED Disposition Clinical Impression: GI bleed, Hypotension, Melena Disposition: OP ADMIT IP TO THIS HOSP Is pt being admited?: Yes Condition: Critical
[2017-12-01 08:27] LABS: Basophils # (Auto) 0.1 K/mm3 (0.0-0.1); Basophils % (Auto) 0.7 % (0.0-1.8); Eosinophils % (Auto) 0.4 % (0.0-4.3); Hematocrit 21.3 % (35.5-45.6); Hemoglobin 6.5 gm/dl (11.8-15.2); Lymphocytes % (Auto) 12.7 % (13.4-35.0); Mean Corpuscular HGB Conc 31 % (32-34); Mean Corpuscular Hemoglobin 29 pg (28-32); Mean Corpuscular Volume 93 fl (84-94); Monocytes # (Auto) 0.7 K/mm3 (0.0-0.8); Platelet Count 343 K/mm3 (140-440); Red Blood Count 2.28 M/mm3 (3.65-5.03); Red Cell Distribution Width 18.7 % (13.2-15.2)
[2017-12-01 08:36] LABS: Alanine Aminotransferase 28 units/L (7-56); Albumin 2.9 g/dL (3.9-5); BUN/Creatinine Ratio 29; Blood Urea Nitrogen 40 mg/dL (9-20); Calcium 8.8 mg/dL (8.4-10.2); Hemolysis Index 38
[2017-12-01 08:51] LABS: INR 5.09 (0.87-1.13)
--- NOTE | 2017-12-01 09:12 | Cat Scan Report ---
CT ABDOMEN PELVIS WITHOUT CONTRAST: HISTORY: Abdominal pain, GI bleeding, rule out retroperitoneal hematoma. COMPARISON: 11/05/17. TECHNIQUE: Helical CT in 1.25mm intervals without IV contrast. Sagittal and coronal reconstructions. FINDINGS: Lung bases: Large bilateral pleural effusions have developed since 11/05/17. There is mild compressive atelectasis of the lower lobes but no obvious infiltrate. Borderline to mild cardiomegaly is stable. Mitral valve replacement is suspected, correlate with history. Liver: Normal. Biliary system: The gallbladder is contracted. Multiple partially calcified gallstones are identified. No biliary dilatation. Pancreas: Normal. Spleen: Normal. Kidneys/ureters/bladder: Normal. Adrenal glands: Normal. Aorta: Moderate to severe diffuse arterial calcifications are noted throughout the abdominal aorta, major branches and bilateral iliac systems. No aneurysm. No retroperitoneal hematoma is identified. Intestines: No oral contrast was administered which limits this exam. A surgical suture line is identified in the mid to distal colon, correlate with history. No evidence for obstruction, obvious mass or inflammatory changes. No site of GI bleeding is confidently identified on noncontrast CT. Appendix: Not identified, correlate with history. Ascites: None. Adenopathy: None. Musculoskeletal: Moderate thoracolumbar spondylosis. No fracture or suspicious bony lesion. IMPRESSION: No retroperitoneal hematoma is identified. No site of GI bleeding is identified. Consider nuclear medicine bleeding scan. Large bilateral pleural effusions. Borderline heart size. Cholelithiasis. Diffuse atherosclerotic disease. Thoracolumbar spondylosis.
--- NOTE | 2017-12-01 09:15 | XRay Report ---
AP CHEST: HISTORY: Possible sepsis Compared to 11/07/17. Previous cardiac surgery changes are again noted. Borderline cardiomegaly is stable. Mild vascular congestion has decreased slightly. Small right pleural effusion has resolved. A small left pleural effusion is unchanged. There is poor aeration of the left lower lobe which is probably secondary to atelectasis. No obvious pneumonia. No pneumothorax. The bony structures are grossly intact. IMPRESSION: Mild improvement in congestive changes and small right pleural effusion since 11/07/17. Small left pleural fluid. Poor aeration of the left lower lobe which probably represents compressive atelectasis although infiltrate cannot be entirely excluded.
[2017-12-01] MEDS: PROTONIX 80 MG in NACL 0.9% 100 ML IV SCH ×2 (09:18→19:00)
[2017-12-01] MEDS ORDERED: XYLOCAINE 2%/ EPI 1:200,000 INFILTRATI ONE (09:42)
[2017-12-01] MEDS ORDERED: VERSED IV NR (10:00)
[2017-12-01] MEDS ORDERED: KCENTRA IV ONE (10:00)
[2017-12-01] MEDS ORDERED: [UNRECOGNIZED DRUG - OTHER] IV ONE (10:00)
[2017-12-01] MEDS ORDERED: KETAMINE HCL IV ONE (10:32)
--- NOTE | 2017-12-01 10:43 | Gastroenterology Consultation ---
Addendum entered and electronically signed by KRZYSZTOF MIRANDA NP 12/01/17 11: 30: Patient now intubated with INR reversal agent given. Discussed with Dr. Espinosa and will schedule for EGD todayl. Give Reglan 10mg IV now. Original Note: <KRZYSZTOF MIRANDA - Last Filed: 12/01/17 11:10> History of Present Illness - Reason for Consult Consult date: 12/01/17 GI bleed Requesting physician: OMER KIM - History of Present Illness Patient is a 67 y/o male who presented to ED with c/o weakness/dyspnea. Upon admission, labs revealed anemia with H/H 6.5/21.3 to which GI has been consulted. Transfusion of PRBCs pending. CT showed pleural effusions but no evidence of retroperitoneal hematoma. He is previously known to our service from a hospital admission just last month for adrenal insufficiency, UGI bleed with melena, and hemorrhagic shock. He underwent an EGD at that time that revealed small AVMs x 2 with some blood (s/p cauterization with APC), gastritis , and HH. This afternoon patient was resting on stretcher in mild distress with current hypotension and central line placement pending for administration of pressors. He admits to some recent black stools (unable to tell me timing of last BM with melena, noted to be a poor historian) but denies hematemesis or hematochezia. Has some SOB but no evidence of CP, dizziness, abd pain, N/V, diarrhea, or constipation. Takes xarelto at home. Past History Past Medical History: COPD, GERD, hypertension, pulmonary embolism, other ( mitral valve stenosis, HCV) Past Surgical History: valve replacement Social history: smoking, other (alcohol) Family history: hypertension Medications and Allergies Allergies Allergy/AdvReac Type Severity Reaction Status Date / Time No Known Allergies Allergy Verified 01/23/14 23:59 Home Medications Medication Instructions Recorded Confirmed Last Taken Type Nicotine [Habitrol] 7 mg TD QDAY #30 patch 11/09/17 Unknown Rx Pantoprazole [Protonix TAB] 40 mg PO DAILY #30 tablet 11/09/17 Unknown Rx Polyethylene Glycol 3350 [Miralax 17 gm PO QDAY #30 powd.pack 11/09/17 Unknown Rx 3350] Prednisone [predniSONE 5 mg (6-Day 5 mg PO .TAPER #1 tab.ds.pk 11/09/17 Unknown Rx Pack, 21 Tabs)] Sennosides/Docusate [Senokot S] 2 tab PO QHS PRN #60 tablet 11/09/17 Unknown Rx Metoprolol [Lopressor TAB] 50 mg PO TID #90 tablet 11/11/17 Unknown Rx Active Meds: Active Medications Pantoprazole Sodium 80 mg/ (Sodium Chloride) 100 mls @ 10 mls/hr IV DIRECT NIK Last Admin: 12/01/17 09:18 Dose: 8 mg/hr, 10 mls/hr Norepinephrine (Levophed Drip 4 Mg/Ns 250 Ml) 4 mg in 250 mls @ 7.5 mls/hr IV TITR NIK; Protocol Midazolam HCl (Versed) 5 mg IV ONCE NR Stop: 12/01/17 23:59 Review of Systems - Review of Systems All systems: negative Constitutional: weakness Respiratory: shortness of breath Exam - Constitutional Vital Signs: Temp Pulse Resp BP Pulse Ox 97.6 F 94 H 29 H 78/55 100 12/01/17 07:33 12/01/17 09:45 12/01/17 09:45 12/01/17 09:45 12/01/17 09:45 General appearance: mild distress - Respiratory Respiratory: bilateral: diminished - Cardiovascular Rhythm: regular Heart Sounds: Present: S1 & S2 - Gastrointestinal General gastrointestinal: Present: soft, non-tender, normal bowel sounds - Labs CBC & Chem 7: 12/01/17 07:59 12/01/17 07:59 Lab Results: Laboratory Results - last 24 hr 12/01/17 12/01/17 12/01/17 07:59 07:59 07:59 WBC 8.2 RBC 2.28 L Hgb 6.5 L Hct 21.3 L MCV 93 MCH 29 MCHC 31 L RDW 18.7 H Plt Count 343 Lymph % (Auto) 12.7 L Humphreys % (Auto) 9.0 H Eos % (Auto) 0.4 Baso % (Auto) 0.7 Lymph # 1.0 L Humphreys # 0.7 Eos # 0.0 Baso # 0.1 Seg Neutrophils % 77.2 H Seg Neutrophils # 6.3 PT 51.5 H INR 5.09 H* Heparin Anti-Xa Level VBG pH Sodium 137 Potassium 4.7 Chloride 97.9 L Carbon Dioxide 24 Anion Gap 20 BUN 40 H Creatinine 1.4 Estimated GFR > 60 BUN/Creatinine Ratio 29 Glucose 96 Lactic Acid Calcium 8.8 Magnesium Total Bilirubin 2.70 H AST 49 H ALT 28 Alkaline Phosphatase 121 Total Creatine Kinase Total Protein 6.2 L Albumin 2.9 L Albumin/Globulin Ratio 0.9 Blood Type Antibody Screen Crossmatch 12/01/17 12/01/17 12/01/17 07:59 07:59 07:59 WBC RBC Hgb Hct MCV MCH MCHC RDW Plt Count Lymph % (Auto) Humphreys % (Auto) Eos % (Auto) Baso % (Auto) Lymph # Humphreys # Eos # Baso # Seg Neutrophils % Seg Neutrophils # PT INR Heparin Anti-Xa Level VBG pH 7.371 Sodium Potassium Chloride Carbon Dioxide Anion Gap BUN Creatinine Estimated GFR BUN/Creatinine Ratio Glucose Lactic Acid 3.70 H* Calcium Magnesium 1.90 Total Bilirubin AST ALT Alkaline Phosphatase Total Creatine Kinase 98 Total Protein Albumin Albumin/Globulin Ratio Blood Type Antibody Screen Crossmatch 12/01/17 12/01/17 12/01/17 08:22 09:14 09:14 WBC RBC Hgb Hct MCV MCH MCHC RDW Plt Count Lymph % (Auto) Humphreys % (Auto) Eos % (Auto) Baso % (Auto) Lymph # Humphreys # Eos # Baso # Seg Neutrophils % Seg Neutrophils # PT INR Heparin Anti-Xa Level > 2.00 H VBG pH Sodium Potassium Chloride Carbon Dioxide Anion Gap BUN Creatinine Estimated GFR BUN/Creatinine Ratio Glucose Lactic Acid 4.90 H* Calcium Magnesium Total Bilirubin AST ALT Alkaline Phosphatase Total Creatine Kinase Total Protein Albumin Albumin/Globulin Ratio Blood Type B POSITIVE Antibody Screen Negative Crossmatch See Detail Assessment and Plan 1.GI bleed 2.melena 3.h/o GI bleed 2/2 AVMs -INR 5.09-prothrombin complex concentrate ordered -HGB 6.5-Transfusion PRBCs pending -continue to monitor H/H and transfuse as needed -hold blood thinning medications -melena noted on ER rectal exam with stool occult positive -EGD 10/2017 revealed small AVMs x 2 with some blood (s/p APC), gastritis, and HH -etiology- likely 2/2 AVMs vs other -currently patient is hypotensive with administration of pressors pending and elevated INR -will schedule for EGD once medically stable and INR improved -Keep NPO -continue PPI gtt and supportive care -will follow <MELECIO ESPINOSA - Last Filed: 12/01/17 16:38> Medications and Allergies Active Meds: Active Medications Albuterol/Ipratropium (Duoneb *Not For Prn Use*) 1 ampul IH Q6HRT NIK Last Admin: 12/01/17 16:19 Dose: 1 ampul Hydrocortisone Sodium Succinate (Solu-Cortef) 100 mg IV Q8HR NIK Stop: 12/06/17 13:59 Last Admin: 12/01/17 14:02 Dose: 100 mg Hydrophilic Ointment (Vaseline Lip Therapy) 1 applic TP Q2HR PRN PRN Reason: Dry Lips Pantoprazole Sodium 80 mg/ (Sodium Chloride) 100 mls @ 10 mls/hr IV DIRECT NIK Last Admin: 12/01/17 09:18 Dose: 8 mg/hr, 10 mls/hr Norepinephrine (Levophed Drip 4 Mg/Ns 250 Ml) 4 mg in 250 mls @ 7.5 mls/hr IV TITR NIK; Protocol Last Titration: 12/01/17 13:45 Dose: 10 mcg/min, 37.5 mls/hr Dextrose/Sodium Chloride (D5/0.45ns) 1,000 mls @ 125 mls/hr IV DIRECT NIK Sodium Chloride (Nacl 0.9% 500 Ml) 500 mls @ 0 mls/hr IV ONCE NIK Stop: 12/01/17 23:00 Fentanyl Citrate (Fentanyl Drip Premix) 2,000 mcg in 100 mls @ 2.495 mls/hr IV TITR NIK; Protocol Last Admin: 12/01/17 12:48 Dose: 1 mcg/kg/hr, 2.495 mls/hr Vancomycin HCl 750 mg/ Sodium (Chloride) 257.5 mls @ 128.75 mls/hr IV Q24H NIK Piperacillin Sod/Tazobactam Sod (Zosyn/Ns 3.375gm/50ml) 3.375 gm in 50 mls @ 100 mls/hr IV Q8H NIK; Protocol Lorazepam (Ativan) 4 mg IV Q4HR PRN PRN Reason: Agitation Midazolam HCl (Versed) 5 mg IV ONCE NR Stop: 12/01/17 23:59 Multi-Ingred Cream/Lotion/Oil/Oint (Artificial Tears Ophth Oint) 1 applic OU Q4HR PRN PRN Reason: Dry Eye(s) Ondansetron HCl (Zofran) 4 mg IV Q8H PRN PRN Reason: Nausea And Vomiting Sodium Chloride (Sodium Chloride Flush Syringe 10 Ml) 10 ml IV BID NIK Sodium Chloride (Sodium Chloride Flush Syringe 10 Ml) 10 ml IV PRN PRN PRN Reason: LINE FLUSH Sodium Chloride (Nacl 0.9% 500 Ml) 1 ml IV DIRECT NIK Vancomycin HCl (Vancomycin Pharmacy To Dose) 1 each IV PKCONSULT NIK Exam - Constitutional Vital Signs: Temp Pulse Resp BP Pulse Ox 97.5 F L 105 H 18 127/91 100 12/01/17 13:58 12/01/17 16:21 12/01/17 16:21 12/01/17 16:20 12/01/17 16:20 - Labs CBC & Chem 7: 12/01/17 Unknown 12/01/17 07:59 Lab Results: Laboratory Results - last 24 hr 12/01/17 12/01/17 12/01/17 07:59 07:59 07:59 WBC 8.2 RBC 2.28 L Hgb 6.5 L Hct 21.3 L MCV 93 MCH 29 MCHC 31 L RDW 18.7 H Plt Count 343 Lymph % (Auto) 12.7 L Humphreys % (Auto) 9.0 H Eos % (Auto) 0.4 Baso % (Auto) 0.7 Lymph # 1.0 L Humphreys # 0.7 Eos # 0.0 Baso # 0.1 Seg Neutrophils % 77.2 H Seg Neutrophils # 6.3 PT 51.5 H INR 5.09 H* APTT Heparin Anti-Xa Level POC ABG pH POC ABG pCO2 POC ABG pO2 POC ABG HCO3 POC ABG Total CO2 POC ABG O2 Sat POC ABG Base Excess VBG pH FiO2 Sodium 137 Potassium 4.7 Chloride 97.9 L Carbon Dioxide 24 Anion Gap 20 BUN 40 H Creatinine 1.4 Estimated GFR > 60 BUN/Creatinine Ratio 29 Glucose 96 POC Glucose Lactic Acid Calcium 8.8 Magnesium Total Bilirubin 2.70 H AST 49 H ALT 28 Alkaline Phosphatase 121 Total Creatine Kinase Total Protein 6.2 L Albumin 2.9 L Albumin/Globulin Ratio 0.9 Urine Color Urine Turbidity Urine pH Ur Specific [place] Urine Protein Urine Glucose (UA) Urine Ketones Urine Blood Urine Nitrite Urine Bilirubin Urine Urobilinogen Ur Leukocyte Esterase Urine WBC (Auto) Urine RBC (Auto) Hyaline Casts Urine Mucus Blood Type Antibody Screen Crossmatch 12/01/17 12/01/17 12/01/17 07:59 07:59 07:59 WBC RBC Hgb Hct MCV MCH MCHC RDW Plt Count Lymph % (Auto) Humphreys % (Auto) Eos % (Auto) Baso % (Auto) Lymph # Humphreys # Eos # Baso # Seg Neutrophils % Seg Neutrophils # PT INR APTT Heparin Anti-Xa Level POC ABG pH POC ABG pCO2 POC ABG pO2 POC ABG HCO3 POC ABG Total CO2 POC ABG O2 Sat POC ABG Base Excess VBG pH 7.371 FiO2 Sodium Potassium Chloride Carbon Dioxide Anion Gap BUN Creatinine Estimated GFR BUN/Creatinine Ratio Glucose POC Glucose Lactic Acid 3.70 H* Calcium Magnesium 1.90 Total Bilirubin AST ALT Alkaline Phosphatase Total Creatine Kinase 98 Total Protein Albumin Albumin/Globulin Ratio Urine Color Urine Turbidity Urine pH Ur Specific [place] Urine Protein Urine Glucose (UA) Urine Ketones Urine Blood Urine Nitrite Urine Bilirubin Urine Urobilinogen Ur Leukocyte Esterase Urine WBC (Auto) Urine RBC (Auto) Hyaline Casts Urine Mucus Blood Type Antibody Screen Crossmatch 12/01/17 12/01/17 12/01/17 08:22 09:14 09:14 WBC RBC Hgb Hct MCV MCH MCHC RDW Plt Count Lymph % (Auto) Humphreys % (Auto) Eos % (Auto) Baso % (Auto) Lymph # Humphreys # Eos # Baso # Seg Neutrophils % Seg Neutrophils # PT INR APTT Heparin Anti-Xa Level > 2.00 H POC ABG pH POC ABG pCO2 POC ABG pO2 POC ABG HCO3 POC ABG Total CO2 POC ABG O2 Sat POC ABG Base Excess VBG pH FiO2 Sodium Potassium Chloride Carbon Dioxide Anion Gap BUN Creatinine Estimated GFR BUN/Creatinine Ratio Glucose POC Glucose Lactic Acid 4.90 H* Calcium Magnesium Total Bilirubin AST ALT Alkaline Phosphatase Total Creatine Kinase Total Protein Albumin Albumin/Globulin Ratio Urine Color Urine Turbidity Urine pH Ur Specific [place] Urine Protein Urine Glucose (UA) Urine Ketones Urine Blood Urine Nitrite Urine Bilirubin Urine Urobilinogen Ur Leukocyte Esterase Urine WBC (Auto) Urine RBC (Auto) Hyaline Casts Urine Mucus Blood Type B POSITIVE Antibody Screen Negative Crossmatch See Detail 07/17/18 07/17/18 07/17/18 10:09 11:54 15:48 WBC RBC Hgb Hct MCV MCH MCHC RDW Plt Count Lymph % (Auto) Humphreys % (Auto) Eos % (Auto) Baso % (Auto) Lymph # Humphreys # Eos # Baso # Seg Neutrophils % Seg Neutrophils # PT INR APTT Heparin Anti-Xa Level POC ABG pH 7.112 L POC ABG pCO2 42.4 POC ABG pO2 113 H POC ABG HCO3 13.5 POC ABG Total CO2 15 POC ABG O2 Sat 96 POC ABG Base Excess -16 VBG pH FiO2 50 Sodium Potassium Chloride Carbon Dioxide Anion Gap BUN Creatinine Estimated GFR BUN/Creatinine Ratio Glucose POC Glucose 72 Lactic Acid 4.80 H* Calcium Magnesium Total Bilirubin AST ALT Alkaline Phosphatase Total Creatine Kinase Total Protein Albumin Albumin/Globulin Ratio Urine Color Urine Turbidity Urine pH Ur Specific [place] Urine Protein Urine Glucose (UA) Urine Ketones Urine Blood Urine Nitrite Urine Bilirubin Urine Urobilinogen Ur Leukocyte Esterase Urine WBC (Auto) Urine RBC (Auto) Hyaline Casts Urine Mucus Blood Type Antibody Screen Crossmatch 12/01/17 12/01/17 12/01/17 Unknown Unknown Unknown WBC RBC Hgb 7.4 L Hct 24.0 L MCV MCH MCHC RDW Plt Count Lymph % (Auto) Humphreys % (Auto) Eos % (Auto) Baso % (Auto) Lymph # Humphreys # Eos # Baso # Seg Neutrophils % Seg Neutrophils # PT 39.4 H INR 3.71 H APTT 38.3 H Heparin Anti-Xa Level POC ABG pH POC ABG pCO2 POC ABG pO2 POC ABG HCO3 POC ABG Total CO2 POC ABG O2 Sat POC ABG Base Excess VBG pH FiO2 Sodium Potassium Chloride Carbon Dioxide Anion Gap BUN Creatinine Estimated GFR BUN/Creatinine Ratio Glucose POC Glucose Lactic Acid Calcium Magnesium Total Bilirubin AST ALT Alkaline Phosphatase Total Creatine Kinase Total Protein Albumin Albumin/Globulin Ratio Urine Color Yellow Urine Turbidity Clear Urine pH 5.0 Ur Specific [place] 1.013 Urine Protein 100 mg/dl Urine Glucose (UA) Neg Urine Ketones Neg Urine Blood Neg Urine Nitrite Neg Urine Bilirubin Neg Urine Urobilinogen 4.0 Ur Leukocyte Esterase Neg Urine WBC (Auto) 4.0 Urine RBC (Auto) 1.0 Hyaline Casts 1 Urine Mucus Few Blood Type Antibody Screen Crossmatch Assessment and Plan Patient seen and examined. Agree with note above. Pt presenting with shock, suspected gi blood loss component, although hgb is not much lower then previous baseline. however, bleeding likely contributing in setting of supratherapeutic inr/anticoagulation. he has received reversal agent however INR remains > 3. He also on high dose pressor support. will hold off on endoscopy until pt is further rescucitated (blood transfusions, coagulopathy reversal, IVF's), and plan for egd once stabilized. cont IV PPI drip. pt currently intubated and awaiting ICU room at the time of exam.
[2017-12-01] MEDS ORDERED: SODIUM CHLORIDE FLUSH SYRINGE 10 ML IV PRN (10:50)
[2017-12-01] MEDS ORDERED: ZOFRAN IV PRN (10:50)
[2017-12-01] MEDS ORDERED: NACL 0.9% 500 ML 500 ML IV SCH (11:07)
[2017-12-01] MEDS ORDERED: VASELINE LIP THERAPY TP PRN (11:20)
[2017-12-01] MEDS ORDERED: ARTIFICIAL TEARS OPHTH OINT OU PRN (11:20)
--- NOTE | 2017-12-01 11:38 | XRay Report ---
AP CHEST: HISTORY: Central line placement Since the previous exam at 0822 hours, a right IJ central line and endotracheal tube have been inserted. The endotracheal tube terminates 4.1 cm superior to the stanley. The right IJ venous catheter terminates in the mid SVC. No pneumothorax is visualized. The remainder of the examination is unchanged. IMPRESSION: Adequate placement of the central line and endotracheal tube as described. No pneumothorax.
[2017-12-01] MEDS: LEVOPHED DRIP 4 MG/NS 250 ML 4 MG/250 ML BAG IV SCH ×3 (11:43→23:35)
[2017-12-01] MEDS ORDERED: NACL 0.9% 500 ML IV SCH (12:00)
[2017-12-01] MEDS ORDERED: REGLAN IV ONE (12:00)
[2017-12-01] MEDS ORDERED: VANCOMYCIN PHARMACY TO DOSE IV SCH (12:00)
[2017-12-01] MEDS ORDERED: VANCOMYCIN/NS 1 GM/250 ML 1 GM/250 ML BAG IV SCH (12:00)
[2017-12-01] MEDS ORDERED: fentaNYL DRIP Premix 2,000 MCG/100 ML BAG IV ONE (12:14)
[2017-12-01] MEDS: fentaNYL DRIP Premix 2,000 MCG/100 ML BAG IV SCH (12:48)
--- NOTE | 2017-12-01 13:23 | History and Physical Report ---
History of Present Illness Date of examination: 12/01/17 Date of admission: 12/01/17 10:47 Chief complaint: 'Am weak' History of present illness: Mr Cleveland is a 67 y/o male with h/o PE on chronic systemic anticoagulation and h/ o Adrenal insufficiency, who recently discharged home last month, managed at that time for severe anemia, BRIANA etc , presented via EMS with c/o several days of generalized weakness, SOB, poor appetite and dark stools. Patient was unable to provide any form of information during the encounter due being intubated for deterioration in his condition. The History was obtained by elisabet the ED physician Dr Knight, review of the ED records. As above, he presented with generalized weakness. ER Course: Severely anemic with H of 6.5, severely lethargic, altered mental status, severely hypotensive. BP was in the 70's Systolic. He was quite hypoxic. Pt was subsequently intubated for deterioration in his condition. Central line was also placed by the ED physician. He recieved multiple boluses of NS. Stat consult to CC team and GI was placed by the ED Doctor. Levophed also ordered and started, Patient is critically sick and was referred to the hospital medicine service for inpatient care and management. Past History Past Medical History: anemia, COPD, GERD, hypertension, pulmonary embolism, other (mitral valve stenosis, HCV) Past Surgical History: valve replacement Social history: smoking, other (alcohol) Family history: hypertension, other (htn) Medications and Allergies Allergies Allergy/AdvReac Type Severity Reaction Status Date / Time No Known Allergies Allergy Verified 01/23/14 23:59 Home Medications Medication Instructions Recorded Confirmed Last Taken Type Nicotine [Habitrol] 7 mg TD QDAY #30 patch 11/09/17 Unknown Rx Pantoprazole [Protonix TAB] 40 mg PO DAILY #30 tablet 11/09/17 Unknown Rx Polyethylene Glycol 3350 [Miralax 17 gm PO QDAY #30 powd.pack 11/09/17 Unknown Rx 3350] Prednisone [predniSONE 5 mg (6-Day 5 mg PO .TAPER #1 tab.ds.pk 11/09/17 Unknown Rx Pack, 21 Tabs)] Sennosides/Docusate [Senokot S] 2 tab PO QHS PRN #60 tablet 11/09/17 Unknown Rx Metoprolol [Lopressor TAB] 50 mg PO TID #90 tablet 11/11/17 Unknown Rx Active Meds: Active Medications Albuterol/Ipratropium (Duoneb *Not For Prn Use*) 1 ampul IH Q6HRT NIK Hydrocortisone Sodium Succinate (Solu-Cortef) 100 mg IV Q8HR NIK Stop: 12/06/17 13:59 Hydrophilic Ointment (Vaseline Lip Therapy) 1 applic TP Q2HR PRN PRN Reason: Dry Lips Pantoprazole Sodium 80 mg/ (Sodium Chloride) 100 mls @ 10 mls/hr IV DIRECT NIK Last Admin: 12/01/17 09:18 Dose: 8 mg/hr, 10 mls/hr Norepinephrine (Levophed Drip 4 Mg/Ns 250 Ml) 4 mg in 250 mls @ 7.5 mls/hr IV TITR NIK; Protocol Last Admin: 12/01/17 11:43 Dose: 12 mcg/min, 45 mls/hr Dextrose/Sodium Chloride (D5/0.45ns) 1,000 mls @ 125 mls/hr IV DIRECT NIK Sodium Chloride (Nacl 0.9% 500 Ml) 500 mls @ 0 mls/hr IV ONCE NIK Stop: 12/01/17 23:00 Fentanyl Citrate (Fentanyl Drip Premix) 2,000 mcg in 100 mls @ 2.495 mls/hr IV TITR NIK; Protocol Last Admin: 12/01/17 12:48 Dose: 1 mcg/kg/hr, 2.495 mls/hr Vancomycin HCl 750 mg/ Sodium (Chloride) 257.5 mls @ 128.75 mls/hr IV Q24H NIK Lorazepam (Ativan) 4 mg IV Q4HR PRN PRN Reason: Agitation Midazolam HCl (Versed) 5 mg IV ONCE NR Stop: 12/01/17 23:59 Multi-Ingred Cream/Lotion/Oil/Oint (Artificial Tears Ophth Oint) 1 applic OU Q4HR PRN PRN Reason: Dry Eye(s) Ondansetron HCl (Zofran) 4 mg IV Q8H PRN PRN Reason: Nausea And Vomiting Sodium Chloride (Sodium Chloride Flush Syringe 10 Ml) 10 ml IV BID NIK Sodium Chloride (Sodium Chloride Flush Syringe 10 Ml) 10 ml IV PRN PRN PRN Reason: LINE FLUSH Sodium Chloride (Nacl 0.9% 500 Ml) 1 ml IV DIRECT NIK Vancomycin HCl (Vancomycin Pharmacy To Dose) 1 each IV PKCONSULT NIK Review of Systems ROS unobtainable: due to endotracheal tube, due to mental status Exam - Constitutional Vitals: Temp Pulse Resp BP Pulse Ox 98 F 111 H 18 123/91 99 12/01/17 12:18 12/01/17 12:45 12/01/17 12:45 12/01/17 12:45 12/01/17 12:30 General appearance: Present: other (in acute distress, lethargic, weak, slim stature) - EENT Eyes: Present: PERRL, scleral icterus ENT: clear oral mucosa, poor dentition - Neck Neck: Present: supple, normal ROM - Respiratory Respiratory effort: labored, accessory muscle use Respiratory: bilateral: diminished, rhonchi - Cardiovascular Heart Sounds: Present: S1 & S2 (tachy) - Extremities Extremity abnormal: edema (chronic venous changes), cold, pulses diminished - Abdominal General gastrointestinal: Present: soft, hypoactive bowel sounds Male genitourinary: Present: deferred - Rectal Rectal Exam: stool dark (PER ED) - Integumentary Integumentary: Present: jaundice, pale - Musculoskeletal Musculoskeletal: other (UNABLE TO EXAMINE DUE TO ENDOTRACHAEL INTUBATION) - Psychiatric Psychiatric: other (Unable to assess, intubated) - Neurologic Neurologic: other (unable to assess due to intubation) - Allied Health Allied health notes reviewed: nursing Results - Labs CBC & Chem 7: 12/01/17 07:59 12/01/17 07:59 Labs: Laboratory Last Values WBC 8.2 K/mm3 (4.5-11.0) 12/01/17 07:59 RBC 2.28 M/mm3 (3.65-5.03) L 12/01/17 07:59 Hgb 6.5 gm/dl (11.8-15.2) L 12/01/17 07:59 Hct 21.3 % (35.5-45.6) L 12/01/17 07:59 MCV 93 fl (84-94) 12/01/17 07:59 MCH 29 pg (28-32) 12/01/17 07:59 MCHC 31 % (32-34) L 12/01/17 07:59 RDW 18.7 % (13.2-15.2) H 12/01/17 07:59 Plt Count 343 K/mm3 (140-440) 12/01/17 07:59 Lymph % (Auto) 12.7 % (13.4-35.0) L 12/01/17 07:59 Charles % (Auto) 9.0 % (0.0-7.3) H 12/01/17 07:59 Eos % (Auto) 0.4 % (0.0-4.3) 12/01/17 07:59 Baso % (Auto) 0.7 % (0.0-1.8) 12/01/17 07:59 Lymph # 1.0 K/mm3 (1.2-5.4) L 12/01/17 07:59 Charles # 0.7 K/mm3 (0.0-0.8) 12/01/17 07:59 Eos # 0.0 K/mm3 (0.0-0.4) 12/01/17 07:59 Baso # 0.1 K/mm3 (0.0-0.1) 12/01/17 07:59 Seg Neutrophils % 77.2 % (40.0-70.0) H 12/01/17 07:59 Seg Neutrophils # 6.3 K/mm3 (1.8-7.7) 12/01/17 07:59 PT 51.5 Sec. (12.2-14.9) H 12/01/17 07:59 INR 5.09 (0.87-1.13) H* 12/01/17 07:59 Heparin Anti-Xa Level > 2.00 U.I./ml (0.3-0.7) H 12/01/17 09:14 POC ABG pH 7.112 (7.35-7.45) L 12/01/17 11:54 POC ABG pCO2 42.4 (35-45) 12/01/17 11:54 POC ABG pO2 113 (80-105) H 12/01/17 11:54 POC ABG HCO3 13.5 12/01/17 11:54 POC ABG Total CO2 15 12/01/17 11:54 POC ABG O2 Sat 96 12/01/17 11:54 POC ABG Base Excess -16 12/01/17 11:54 VBG pH 7.371 (7.320-7.420) 12/01/17 07:59 FiO2 50 % 12/01/17 11:54 Sodium 137 mmol/L (137-145) 12/01/17 07:59 Potassium 4.7 mmol/L (3.6-5.0) 12/01/17 07:59 Chloride 97.9 mmol/L (98-107) L 12/01/17 07:59 Carbon Dioxide 24 mmol/L (22-30) 12/01/17 07:59 Anion Gap 20 mmol/L 12/01/17 07:59 BUN 40 mg/dL (9-20) H 12/01/17 07:59 Creatinine 1.4 mg/dL (0.8-1.5) 12/01/17 07:59 Estimated GFR > 60 ml/min 12/01/17 07:59 BUN/Creatinine Ratio 29 % 12/01/17 07:59 Glucose 96 mg/dL (75-100) 12/01/17 07:59 Lactic Acid 4.80 mmol/L (0.7-2.0) H* 12/01/17 10:09 Calcium 8.8 mg/dL (8.4-10.2) 12/01/17 07:59 Magnesium 1.90 mg/dL (1.7-2.3) 12/01/17 07:59 Total Bilirubin 2.70 mg/dL (0.1-1.2) H 12/01/17 07:59 AST 49 units/L (5-40) H 12/01/17 07:59 ALT 28 units/L (7-56) 12/01/17 07:59 Alkaline Phosphatase 121 units/L (35-129) 12/01/17 07:59 Total Creatine Kinase 98 units/L (55-170) 12/01/17 07:59 Total Protein 6.2 g/dL (6.3-8.2) L 12/01/17 07:59 Albumin 2.9 g/dL (3.9-5) L 12/01/17 07:59 Albumin/Globulin Ratio 0.9 % 12/01/17 07:59 Blood Type B POSITIVE 12/01/17 08:22 Antibody Screen Negative 12/01/17 08:22 Crossmatch See Detail 12/01/17 08:22 - Imaging and Cardiology EKG: report reviewed Chest x-ray: report reviewed Assessment and Plan Assessment and plan: Assessment. Severe Shock 2/2 Hypovolemic vs hemorrhagic vs septic. Severe/ Symptomatic Acute on chronic blood loss Anemia Upper GI bleeding Acute Hypoxic resp failure s/p intubation on MVS. Acute toxic metabolic encephaloapthy Suspected Aspiration pneumonia Adrenal insufficiency on chronic steroids. Severe Sepsis . Mechanical Hrt valve replacement Pulm Embolism, h/o Severe protein calorie Malnutrition Adult FTT. h/o GI bleed. Critically sick Prognosis guarded Plan Admit inpt to ICU CC team consult done by ED GI consult done by ED Transfuse at least 4 units of PRBC or more Monitor H/H closely Stress dose steroids Sepsis protocol with broad spectrum IV abx bleeding precautions Vasopressor support. Monitor PT/INR am labs Protonix drip Consider cardio consult daily CXRs Update family Pt is critically sick and is at risk of increased morbidity and mortality, including loss of body parts and loss of life. Further pt mgt will depend solely on his hospital course. f/u the specialists reccs. More than 30 mins of CCT spent, excludes time spent caring for other patients.
[2017-12-01 13:54] LABS: Hemoglobin 7.4 gm/dl (11.8-15.2)
[2017-12-01 13:55] LABS: Bilirubin,Urine NEG (Negative); Blood,Urine NEG (Negative); Color,Urine Yellow (Yellow); Hyaline Casts,Urine 1 /LPF; Mucus,Urine FEW /HPF
[2017-12-01] MEDS ORDERED: ZOSYN/NS 4.5GM/100ML 4.5 GM/100 ML VIAL IV ONE (14:00)
[2017-12-01] MEDS ORDERED: VANCOMYCIN 750 MG in NACL 0.9% 250ML 250 ML IV SCH (14:00)
[2017-12-01] MEDS ORDERED: ZOSYN/NS 4.5GM/100ML 4.5 GM/100 ML VIAL IV SCH (14:00)
[2017-12-01 14:01] LABS: INR 3.71 (0.87-1.13)
[2017-12-01 14:02] LABS: Partial Thromboplastin Time 38.3 Sec. (24.2-36.6)
[2017-12-01] MEDS ORDERED: ZEMURON IV ONE (14:46)
[2017-12-01] MEDS: DUONEB *Not for PRN Use IH SCH ×2 (16:19→20:30)
[2017-12-01] MEDS: ZOSYN/NS 3.375GM/50ML 3.375 GM/50 ML BAG IV SCH (21:34)
[2017-12-01] MEDS: ATIVAN IV PRN (21:35)
[2017-12-02] MEDS: SODIUM CHLORIDE FLUSH SYRINGE 10 ML IV SCH ×2 (02:09→22:00)
--- NOTE | 2017-12-02 03:30 | XRay Report ---
FINAL REPORT PROCEDURE: XR CHEST 1V AP TECHNIQUE: Chest radiograph anteroposterior view. CPT 51032 HISTORY: follow up respiratory failure COMPARISON: 01/24/2017 FINDINGS: Heart: The heart size is slightly pronounced. Multiple sternal wires are present.. Mediastinum/Vessels: Normal. Lungs/Pleural space: Mild vascular congestion with bilateral lower lung atelectasis. Infiltrate left lower lung with moderate effusion is suspected.. Bony thorax: No acute osseous abnormality. Life support devices: The endotracheal tube ends 4 centimeters above the stanley. The nasogastric tube appears curled within the cervical esophageal region. This needs to be completely repositioned. There is a right central catheter this ends in the SVC. IMPRESSION: Vascular congestion with bilateral lower lung atelectasis. Infiltrate left lower lung with moderate left effusion. The nasogastric tube appears curled within the cervical esophageal region. Complete re-positioning of the tube will be required. The endotracheal tube and right central catheter are properly positioned.. The above findings were discussed with the patient's floor nurse at the time of dictation [id number] Eastern standard time on 12/02/2017
[2017-12-02] MEDS: fentaNYL DRIP Premix 2,000 MCG/100 ML BAG IV SCH (04:27)
[2017-12-02] MEDS: LEVOPHED DRIP 4 MG/NS 250 ML 4 MG/250 ML BAG IV SCH ×2 (04:28→09:49)
[2017-12-02] MEDS: DUONEB *Not for PRN Use IH SCH ×4 (04:54→20:05)
[2017-12-02] MEDS: ATIVAN IV PRN ×2 (05:16→16:47)
[2017-12-02] MEDS: PROTONIX 80 MG in NACL 0.9% 100 ML IV SCH ×2 (05:23→18:22)
[2017-12-02] MEDS: ZOSYN/NS 3.375GM/50ML 3.375 GM/50 ML BAG IV SCH (06:30)
[2017-12-02 09:57] LABS: Basophils % (Auto) 0.2 % (0.0-1.8); Hematocrit 29.2 % (35.5-45.6); Hemoglobin 9.6 gm/dl (11.8-15.2); Lymphocytes # (Auto) 0.6 K/mm3 (1.2-5.4); Lymphocytes % (Auto) 5.2 % (13.4-35.0); Mean Corpuscular HGB Conc 33 % (32-34); Mean Corpuscular Hemoglobin 29 pg (28-32); Mean Corpuscular Volume 89 fl (84-94); Monocytes % (Auto) 8.2 % (0.0-7.3); Platelet Count 307 K/mm3 (140-440); Red Blood Count 3.29 M/mm3 (3.65-5.03); Red Cell Distribution Width 16.7 % (13.2-15.2)
[2017-12-02 10:16] LABS: INR 3.11 (0.87-1.13)
[2017-12-02] MEDS ORDERED: SUBLIMAZE IV PRN (10:25)
[2017-12-02 10:26] LABS: Alanine Aminotransferase 42 units/L (7-56); Albumin 2.5 g/dL (3.9-5); BUN/Creatinine Ratio 35; Blood Urea Nitrogen 45 mg/dL (9-20); Hemolysis Index 1
--- NOTE | 2017-12-02 10:35 | Consultation ---
History of Present Illness Consult date: 12/02/17 Requesting physician: OMER KIM Reason for consult: other (GI Bleed and Acute respiratory failure) History of present illness: 67 y/o male admitted with GI Bleed. Apparently on xarelto as an outpatient for PE in the past. Patient was recently admitted last month with GI bleed. While attempting central line placement in ED, patient required intubation based upon the ED note. Currently intubated and sedated. GI has seen but has not scoped yet. H/H responded well to blood transfusion. No family at bedside. Past History Past Medical History: anemia, COPD, GERD, hypertension, pulmonary embolism, other (mitral valve stenosis, HCV) Past Surgical History: valve replacement Social history: smoking, other (alcohol) Family history: hypertension, other (htn) Medications and Allergies Allergies Allergy/AdvReac Type Severity Reaction Status Date / Time No Known Allergies Allergy Verified 01/23/14 23:59 Home Medications Medication Instructions Recorded Confirmed Last Taken Type Nicotine [Habitrol] 7 mg TD QDAY #30 patch 11/09/17 Unknown Rx Pantoprazole [Protonix TAB] 40 mg PO DAILY #30 tablet 11/09/17 Unknown Rx Polyethylene Glycol 3350 [Miralax 17 gm PO QDAY #30 powd.pack 11/09/17 Unknown Rx 3350] Prednisone [predniSONE 5 mg (6-Day 5 mg PO .TAPER #1 tab.ds.pk 11/09/17 Unknown Rx Pack, 21 Tabs)] Sennosides/Docusate [Senokot S] 2 tab PO QHS PRN #60 tablet 11/09/17 Unknown Rx Metoprolol [Lopressor TAB] 50 mg PO TID #90 tablet 11/11/17 Unknown Rx Active Meds: Active Medications Albuterol/Ipratropium (Duoneb *Not For Prn Use*) 1 ampul IH Q6HRT [facility] Last Admin: 12/02/17 08:12 Dose: 1 ampul Fentanyl (Sublimaze) 50 mcg IV Q2H PRN PRN Reason: Pain , Severe (7-10) Hydrocortisone Sodium Succinate (Solu-Cortef) 100 mg IV Q8HR NIK Stop: 12/06/17 13:59 Last Admin: 12/02/17 05:15 Dose: 100 mg Hydrophilic Ointment (Vaseline Lip Therapy) 1 applic TP Q2HR PRN PRN Reason: Dry Lips Pantoprazole Sodium 80 mg/ (Sodium Chloride) 100 mls @ 10 mls/hr IV DIRECT NIK Last Admin: 12/02/17 05:23 Dose: 8 mg/hr, 10 mls/hr Norepinephrine (Levophed Drip 4 Mg/Ns 250 Ml) 4 mg in 250 mls @ 7.5 mls/hr IV TITR NIK; Protocol Last Admin: 12/02/17 09:49 Dose: 14 mcg/min, 52.5 mls/hr Dextrose/Sodium Chloride (D5/0.45ns) 1,000 mls @ 125 mls/hr IV DIRECT NIK Fentanyl Citrate (Fentanyl Drip Premix) 2,000 mcg in 100 mls @ 2.495 mls/hr IV TITR NIK; Protocol Last Titration: 12/02/17 09:15 Dose: 0 mcg/kg/hr, 0 mls/hr Vancomycin HCl 750 mg/ Sodium (Chloride) 257.5 mls @ 128.75 mls/hr IV Q24H NIK Last Admin: 12/01/17 17:51 Dose: 128.75 mls/hr Piperacillin Sod/Tazobactam Sod (Zosyn/Ns 3.375gm/50ml) 3.375 gm in 50 mls @ 100 mls/hr IV Q8H NIK; Protocol Last Admin: 12/02/17 06:30 Dose: 100 mls/hr Lorazepam (Ativan) 4 mg IV Q4HR PRN PRN Reason: Agitation Last Admin: 12/02/17 05:16 Dose: 4 mg Multi-Ingred Cream/Lotion/Oil/Oint (Artificial Tears Ophth Oint) 1 applic OU Q4HR PRN PRN Reason: Dry Eye(s) Ondansetron HCl (Zofran) 4 mg IV Q8H PRN PRN Reason: Nausea And Vomiting Sodium Chloride (Sodium Chloride Flush Syringe 10 Ml) 10 ml IV BID [facility] Last Admin: 12/02/17 02:09 Dose: Not Given Sodium Chloride (Sodium Chloride Flush Syringe 10 Ml) 10 ml IV PRN PRN PRN Reason: LINE FLUSH Sodium Chloride (Nacl 0.9% 500 Ml) 1 ml IV DIRECT NIK Vancomycin HCl (Vancomycin Pharmacy To Dose) 1 each IV PKCONSULT NIK Review of Systems ROS unobtainable: due to endotracheal tube, due to mental status Physical Examination Vital signs: Vital Signs Temp Pulse Resp BP Pulse Ox 97.6 F 96 H 32 H 87/55 99 12/01/17 07:33 12/01/17 07:33 12/01/17 07:33 12/01/17 07:33 12/01/17 07:33 General appearance: no acute distress Eyes: non-icteric ENT: other (orally intubated and sedated) Neck: supple Effort: normal Ascultation: Bilateral: clear, diminished breath sounds Cardiovascular: regular rate and rhythm Gastrointestinal: soft Extremities: no cyanosis, no edema unable to assess Results - Laboratory Findings CBC and BMP: 12/02/17 09:30 12/02/17 09:30 ABG POC ABG pH 7.279 (7.35-7.45) L 12/02/17 05:16 POC ABG pCO2 40.2 (35-45) 12/02/17 05:16 POC ABG pO2 136 (80-105) H 12/02/17 05:16 POC ABG HCO3 18.8 12/02/17 05:16 POC ABG Total CO2 20 12/02/17 05:16 POC ABG O2 Sat 99 12/02/17 05:16 PT/INR, D-dimer PT 34.2 Sec. (12.2-14.9) H 12/02/17 09:30 INR 3.11 (0.87-1.13) H 12/02/17 09:30 Abnormal lab findings: Abnormal Labs 12/01/17 12/01/17 12/01/17 07:59 07:59 07:59 WBC RBC 2.28 L Hgb 6.5 L Hct 21.3 L MCHC 31 L RDW 18.7 H Lymph % (Auto) 12.7 L [place] % (Auto) 9.0 H Lymph # 1.0 L [place] # Seg Neutrophils % 77.2 H Seg Neutrophils # PT 51.5 H INR 5.09 H* APTT Heparin Anti-Xa Level POC ABG pH POC ABG pO2 Chloride 97.9 L BUN 40 H Glucose POC Glucose Lactic Acid Calcium Total Bilirubin 2.70 H AST 49 H Total Protein 6.2 L Albumin 2.9 L Crossmatch 12/01/17 12/01/17 12/01/17 07:59 08:22 09:14 WBC RBC Hgb Hct MCHC RDW Lymph % (Auto) [place] % (Auto) Lymph # [place] # Seg Neutrophils % Seg Neutrophils # PT INR APTT Heparin Anti-Xa Level POC ABG pH POC ABG pO2 Chloride BUN Glucose POC Glucose Lactic Acid 3.70 H* 4.90 H* Calcium Total Bilirubin AST Total Protein Albumin Crossmatch See Detail 12/01/17 12/01/17 12/01/17 09:14 10:09 11:54 WBC RBC Hgb Hct MCHC RDW Lymph % (Auto) [place] % (Auto) Lymph # [place] # Seg Neutrophils % Seg Neutrophils # PT INR APTT Heparin Anti-Xa Level > 2.00 H POC ABG pH 7.112 L POC ABG pO2 113 H Chloride BUN Glucose POC Glucose Lactic Acid 4.80 H* Calcium Total Bilirubin AST Total Protein Albumin Crossmatch 12/01/17 12/01/17 12/02/17 Unknown Unknown 05:16 WBC RBC Hgb 7.4 L Hct 24.0 L MCHC RDW Lymph % (Auto) [place] % (Auto) Lymph # [place] # Seg Neutrophils % Seg Neutrophils # PT 39.4 H INR 3.71 H APTT 38.3 H Heparin Anti-Xa Level POC ABG pH POC ABG pO2 Chloride BUN Glucose POC Glucose 172 H Lactic Acid Calcium Total Bilirubin AST Total Protein Albumin Crossmatch 12/02/17 12/02/17 12/02/17 05:16 09:30 09:30 WBC 12.3 H RBC 3.29 L Hgb 9.6 L Hct 29.2 L MCHC RDW 16.7 H Lymph % (Auto) 5.2 L [place] % (Auto) 8.2 H Lymph # 0.6 L [place] # 1.0 H Seg Neutrophils % 86.4 H Seg Neutrophils # 10.6 H PT INR APTT Heparin Anti-Xa Level POC ABG pH 7.279 L POC ABG pO2 136 H Chloride 109.5 H BUN 45 H Glucose 162 H POC Glucose Lactic Acid Calcium 8.0 L Total Bilirubin 4.60 H AST 87 H Total Protein 5.2 L Albumin 2.5 L Crossmatch 12/02/17 09:30 WBC RBC Hgb Hct MCHC RDW Lymph % (Auto) [place] % (Auto) Lymph # [place] # Seg Neutrophils % Seg Neutrophils # PT 34.2 H INR 3.11 H APTT Heparin Anti-Xa Level POC ABG pH POC ABG pO2 Chloride BUN Glucose POC Glucose Lactic Acid Calcium Total Bilirubin AST Total Protein Albumin Crossmatch - Diagnostic Findings Chest x-ray: image reviewed (bilateral lower lobe airspace disease, possible infiltrate in left lower lobe) Assessment and Plan 67 y/o male with acute blood loss anemia s/p 3 units of PRBC in coagulopathy secondary to xarelto. 1. Continue PPI drip 2. GI to scope hopefully today 3. Follow up scope and possible extubation later today CCT 31 minutes.
--- NOTE | 2017-12-02 11:32 | Gastroenterology Progress Note ---
<KRZYSZTOF MIRANDA - Last Filed: 12/02/17 11:34> Assessment and Plan 1.GI bleed 2.melena 3.h/o GI bleed 2/2 AVMs -INR 3.11 -HGB 9.6- s/o transfusion PRBCs -continue to monitor H/H and transfuse as needed -hold blood thinning medications -BM x 1 overnight with black stool but no active signs of bleeding this am per nursing -EGD 10/2017 revealed small AVMs x 2 with some blood (s/p APC), gastritis, and HH -etiology- likely 2/2 AVMs vs other -will schedule for EGD once medically stable and INR improved -Keep NPO -continue PPI gtt and supportive care -will follow Subjective Date of service: 12/02/17 Principal diagnosis: GI bleed Interval history: Patient currently intubated with hypotension on pressor support. BM x 1 overnight with black stool but no active signs of bleeding this am per nursing. Objective - Constitutional Vitals: Temp Pulse Resp BP Pulse Ox 98.4 F 80 18 118/79 100 12/02/17 04:00 12/02/17 09:10 12/02/17 09:10 12/02/17 09:10 12/02/17 09:10 General appearance: mild distress, other (intubated on pressor support) - Respiratory Respiratory: bilateral: diminished - Cardiovascular Rhythm: regular Heart Sounds: Present: S1 & S2 - Gastrointestinal General gastrointestinal: Present: soft, non-distended, normal bowel sounds - Neurologic Neurological: other (unable to assess) - Labs CBC & Chem 7: 12/02/17 09:30 12/02/17 09:30 Labs: Laboratory Results - last 24 hr 12/01/17 12/01/17 12/01/17 08:22 11:54 15:48 WBC RBC Hgb Hct MCV MCH MCHC RDW Plt Count Lymph % (Auto) [place] % (Auto) Eos % (Auto) Baso % (Auto) Lymph # [place] # Eos # Baso # Seg Neutrophils % Seg Neutrophils # PT INR APTT POC ABG pH 7.112 L POC ABG pCO2 42.4 POC ABG pO2 113 H POC ABG HCO3 13.5 POC ABG Total CO2 15 POC ABG O2 Sat 96 POC ABG Base Excess -16 FiO2 50 Sodium Potassium Chloride Carbon Dioxide Anion Gap BUN Creatinine Estimated GFR BUN/Creatinine Ratio Glucose POC Glucose 72 Calcium Total Bilirubin AST ALT Alkaline Phosphatase Total Protein Albumin Albumin/Globulin Ratio Urine Color Urine Turbidity Urine pH Ur Specific [place] Urine Protein Urine Glucose (UA) Urine Ketones Urine Blood Urine Nitrite Urine Bilirubin Urine Urobilinogen Ur Leukocyte Esterase Urine WBC (Auto) Urine RBC (Auto) Hyaline Casts Urine Mucus Blood Type B POSITIVE Antibody Screen Negative Crossmatch See Detail 12/01/17 12/01/17 12/01/17 18:41 Unknown Unknown WBC RBC Hgb 7.4 L Hct 24.0 L MCV MCH MCHC RDW Plt Count Lymph % (Auto) [place] % (Auto) Eos % (Auto) Baso % (Auto) Lymph # [place] # Eos # Baso # Seg Neutrophils % Seg Neutrophils # PT INR APTT POC ABG pH POC ABG pCO2 POC ABG pO2 POC ABG HCO3 POC ABG Total CO2 POC ABG O2 Sat POC ABG Base Excess FiO2 Sodium Potassium Chloride Carbon Dioxide Anion Gap BUN Creatinine Estimated GFR BUN/Creatinine Ratio Glucose POC Glucose 72 Calcium Total Bilirubin AST ALT Alkaline Phosphatase Total Protein Albumin Albumin/Globulin Ratio Urine Color Yellow Urine Turbidity Clear Urine pH 5.0 Ur Specific [place] 1.013 Urine Protein 100 mg/dl Urine Glucose (UA) Neg Urine Ketones Neg Urine Blood Neg Urine Nitrite Neg Urine Bilirubin Neg Urine Urobilinogen 4.0 Ur Leukocyte Esterase Neg Urine WBC (Auto) 4.0 Urine RBC (Auto) 1.0 Hyaline Casts 1 Urine Mucus Few Blood Type Antibody Screen Crossmatch 12/01/17 12/02/17 12/02/17 Unknown 05:16 05:16 WBC RBC Hgb Hct MCV MCH MCHC RDW Plt Count Lymph % (Auto) [place] % (Auto) Eos % (Auto) Baso % (Auto) Lymph # [place] # Eos # Baso # Seg Neutrophils % Seg Neutrophils # PT 39.4 H INR 3.71 H APTT 38.3 H POC ABG pH 7.279 L POC ABG pCO2 40.2 POC ABG pO2 136 H POC ABG HCO3 18.8 POC ABG Total CO2 20 POC ABG O2 Sat 99 POC ABG Base Excess -8 FiO2 40 Sodium Potassium Chloride Carbon Dioxide Anion Gap BUN Creatinine Estimated GFR BUN/Creatinine Ratio Glucose POC Glucose 172 H Calcium Total Bilirubin AST ALT Alkaline Phosphatase Total Protein Albumin Albumin/Globulin Ratio Urine Color Urine Turbidity Urine pH Ur Specific [place] Urine Protein Urine Glucose (UA) Urine Ketones Urine Blood Urine Nitrite Urine Bilirubin Urine Urobilinogen Ur Leukocyte Esterase Urine WBC (Auto) Urine RBC (Auto) Hyaline Casts Urine Mucus Blood Type Antibody Screen Crossmatch 12/02/17 12/02/17 12/02/17 09:30 09:30 09:30 WBC 12.3 H RBC 3.29 L Hgb 9.6 L Hct 29.2 L MCV 89 MCH 29 MCHC 33 RDW 16.7 H Plt Count 307 Lymph % (Auto) 5.2 L [place] % (Auto) 8.2 H Eos % (Auto) 0.0 Baso % (Auto) 0.2 Lymph # 0.6 L [place] # 1.0 H Eos # 0.0 Baso # 0.0 Seg Neutrophils % 86.4 H Seg Neutrophils # 10.6 H PT 34.2 H INR 3.11 H APTT POC ABG pH POC ABG pCO2 POC ABG pO2 POC ABG HCO3 POC ABG Total CO2 POC ABG O2 Sat POC ABG Base Excess FiO2 Sodium 143 Potassium 4.1 Chloride 109.5 H Carbon Dioxide 22 Anion Gap 16 BUN 45 H Creatinine 1.3 Estimated GFR > 60 BUN/Creatinine Ratio 35 Glucose 162 H POC Glucose Calcium 8.0 L Total Bilirubin 4.60 H AST 87 H ALT 42 Alkaline Phosphatase 96 Total Protein 5.2 L Albumin 2.5 L Albumin/Globulin Ratio 0.9 Urine Color Urine Turbidity Urine pH Ur Specific [place] Urine Protein Urine Glucose (UA) Urine Ketones Urine Blood Urine Nitrite Urine Bilirubin Urine Urobilinogen Ur Leukocyte Esterase Urine WBC (Auto) Urine RBC (Auto) Hyaline Casts Urine Mucus Blood Type Antibody Screen Crossmatch <MELECIO ESPINOSA - Last Filed: 12/02/17 13:26> Assessment and Plan Pt seen and examined. Agree with note above. H/H is better with blood transfusions. Still on pressor support. Unclear if this is hemorrhagic shock at this point however given improved labs, and without significant signs of bleeding (likely contributing though to hypotension on presentation). INR > 3, so high risk of bleeding with endoscopy. cont supportive care and reverse INR. will plan for EGD once INR < 2.5. Objective - Constitutional Vitals: Temp Pulse Resp BP Pulse Ox 98.4 F 82 18 116/76 100 12/02/17 04:00 12/02/17 12:00 12/02/17 09:10 07/18/18 12:00 12/02/17 12:00 - Labs CBC & Chem 7: 12/02/17 09:30 12/02/17 09:30 Labs: Laboratory Results - last 24 hr 12/01/17 12/01/17 12/01/17 08:22 15:48 18:41 WBC RBC Hgb Hct MCV MCH MCHC RDW Plt Count Lymph % (Auto) [place] % (Auto) Eos % (Auto) Baso % (Auto) Lymph # [place] # Eos # Baso # Seg Neutrophils % Seg Neutrophils # PT INR APTT POC ABG pH POC ABG pCO2 POC ABG pO2 POC ABG HCO3 POC ABG Total CO2 POC ABG O2 Sat POC ABG Base Excess FiO2 Sodium Potassium Chloride Carbon Dioxide Anion Gap BUN Creatinine Estimated GFR BUN/Creatinine Ratio Glucose POC Glucose 72 72 Calcium Total Bilirubin AST ALT Alkaline Phosphatase Total Protein Albumin Albumin/Globulin Ratio Urine Color Urine Turbidity Urine pH Ur Specific [place] Urine Protein Urine Glucose (UA) Urine Ketones Urine Blood Urine Nitrite Urine Bilirubin Urine Urobilinogen Ur Leukocyte Esterase Urine WBC (Auto) Urine RBC (Auto) Hyaline Casts Urine Mucus Blood Type B POSITIVE Antibody Screen Negative Crossmatch See Detail 12/01/17 12/01/17 12/01/17 Unknown Unknown Unknown WBC RBC Hgb 7.4 L Hct 24.0 L MCV MCH MCHC RDW Plt Count Lymph % (Auto) [place] % (Auto) Eos % (Auto) Baso % (Auto) Lymph # [place] # Eos # Baso # Seg Neutrophils % Seg Neutrophils # PT 39.4 H INR 3.71 H APTT 38.3 H POC ABG pH POC ABG pCO2 POC ABG pO2 POC ABG HCO3 POC ABG Total CO2 POC ABG O2 Sat POC ABG Base Excess FiO2 Sodium Potassium Chloride Carbon Dioxide Anion Gap BUN Creatinine Estimated GFR BUN/Creatinine Ratio Glucose POC Glucose Calcium Total Bilirubin AST ALT Alkaline Phosphatase Total Protein Albumin Albumin/Globulin Ratio Urine Color Yellow Urine Turbidity Clear Urine pH 5.0 Ur Specific [place] 1.013 Urine Protein 100 mg/dl Urine Glucose (UA) Neg Urine Ketones Neg Urine Blood Neg Urine Nitrite Neg Urine Bilirubin Neg Urine Urobilinogen 4.0 Ur Leukocyte Esterase Neg Urine WBC (Auto) 4.0 Urine RBC (Auto) 1.0 Hyaline Casts 1 Urine Mucus Few Blood Type Antibody Screen Crossmatch 07/12/02/17 12/02/17 05:16 05:16 09:30 WBC 12.3 H RBC 3.29 L Hgb 9.6 L Hct 29.2 L MCV 89 MCH 29 MCHC 33 RDW 16.7 H Plt Count 307 Lymph % (Auto) 5.2 L [place] % (Auto) 8.2 H Eos % (Auto) 0.0 Baso % (Auto) 0.2 Lymph # 0.6 L [place] # 1.0 H Eos # 0.0 Baso # 0.0 Seg Neutrophils % 86.4 H Seg Neutrophils # 10.6 H PT INR APTT POC ABG pH 7.279 L POC ABG pCO2 40.2 POC ABG pO2 136 H POC ABG HCO3 18.8 POC ABG Total CO2 20 POC ABG O2 Sat 99 POC ABG Base Excess -8 FiO2 40 Sodium Potassium Chloride Carbon Dioxide Anion Gap BUN Creatinine Estimated GFR BUN/Creatinine Ratio Glucose POC Glucose 172 H Calcium Total Bilirubin AST ALT Alkaline Phosphatase Total Protein Albumin Albumin/Globulin Ratio Urine Color Urine Turbidity Urine pH Ur Specific [place] Urine Protein Urine Glucose (UA) Urine Ketones Urine Blood Urine Nitrite Urine Bilirubin Urine Urobilinogen Ur Leukocyte Esterase Urine WBC (Auto) Urine RBC (Auto) Hyaline Casts Urine Mucus Blood Type Antibody Screen Crossmatch 12/02/17 12/02/17 09:30 09:30 WBC RBC Hgb Hct MCV MCH MCHC RDW Plt Count Lymph % (Auto) [place] % (Auto) Eos % (Auto) Baso % (Auto) Lymph # [place] # Eos # Baso # Seg Neutrophils % Seg Neutrophils # PT 34.2 H INR 3.11 H APTT POC ABG pH POC ABG pCO2 POC ABG pO2 POC ABG HCO3 POC ABG Total CO2 POC ABG O2 Sat POC ABG Base Excess FiO2 Sodium 143 Potassium 4.1 Chloride 109.5 H Carbon Dioxide 22 Anion Gap 16 BUN 45 H Creatinine 1.3 Estimated GFR > 60 BUN/Creatinine Ratio 35 Glucose 162 H POC Glucose Calcium 8.0 L Total Bilirubin 4.60 H AST 87 H ALT 42 Alkaline Phosphatase 96 Total Protein 5.2 L Albumin 2.5 L Albumin/Globulin Ratio 0.9 Urine Color Urine Turbidity Urine pH Ur Specific [place] Urine Protein Urine Glucose (UA) Urine Ketones Urine Blood Urine Nitrite Urine Bilirubin Urine Urobilinogen Ur Leukocyte Esterase Urine WBC (Auto) Urine RBC (Auto) Hyaline Casts Urine Mucus Blood Type Antibody Screen Crossmatch
--- NOTE | 2017-12-02 11:40 | Progress Note ---
Assessment and Plan Assessment and plan: Shock 2/2 Hypovolemic vs hemorrhagic -cont iv pressor -BP improved Acute blood loss Anemia 2/2 to UGIB -s/p blood transfusion with 3u PRBCS -cont protonix drip -H/H improved. will monitor -GI planning for EGD Acute Hypoxic resp failure -s/p intubation on MVS. Acute toxic metabolic encephaloapthy -monitor clinically SIRS, not due to acute infection -off antibiotic -monitor wbc level Suspected Aspiration pneumonia -off zosyn -chest x-ray neg Adrenal insufficiency -s/p iv decadron H/o severe protein calorie Malnutrition -currently on dextrose fluid H/O PE and valve replacement -not on anticoagulation Prophylaxis -DVT prophylaxis with SCD due to the acute bleed 38 minutes of critical care spent History Interval history: Pt is 67 y/o AAF who was admitted for UGIB and acute hypoxic respiratory failure s/p intubation. Pt is sedated and unable to communicate. Hospitalist Physical - Constitutional Vitals: Temp Pulse Resp BP Pulse Ox 98.4 F 80 18 118/79 100 12/02/17 04:00 12/02/17 09:10 12/02/17 09:10 12/02/17 09:10 12/02/17 09:10 General appearance: Present: no acute distress, other (intubated and sedated) - EENT Eyes: Present: PERRL ENT: other (intubated) - Neck Neck: Present: supple - Respiratory Respiratory effort: normal Respiratory: bilateral: CTA - Cardiovascular Rhythm: regular Heart Sounds: Present: S1 & S2 - Extremities Extremities: No edema - Abdominal General gastrointestinal: soft, non-tender, normal bowel sounds - Neurologic Neurologic: other (pt is intubated and sedated) Results - Labs CBC & Chem 7: 12/02/17 09:30 12/02/17 09:30 Labs: Laboratory Last Values WBC 12.3 K/mm3 (4.5-11.0) H 12/02/17 09:30 RBC 3.29 M/mm3 (3.65-5.03) L 12/02/17 09:30 Hgb 9.6 gm/dl (11.8-15.2) L 12/02/17 09:30 Hct 29.2 % (35.5-45.6) L 12/02/17 09:30 MCV 89 fl (84-94) 12/02/17 09:30 MCH 29 pg (28-32) 12/02/17 09:30 MCHC 33 % (32-34) 12/02/17 09:30 RDW 16.7 % (13.2-15.2) H 12/02/17 09:30 Plt Count 307 K/mm3 (140-440) 12/02/17 09:30 Lymph % (Auto) 5.2 % (13.4-35.0) L 12/02/17 09:30 [place] % (Auto) 8.2 % (0.0-7.3) H 12/02/17 09:30 Eos % (Auto) 0.0 % (0.0-4.3) 12/02/17 09:30 Baso % (Auto) 0.2 % (0.0-1.8) 12/02/17 09:30 Lymph # 0.6 K/mm3 (1.2-5.4) L 12/02/17 09:30 [place] # 1.0 K/mm3 (0.0-0.8) H 12/02/17 09:30 Eos # 0.0 K/mm3 (0.0-0.4) 12/02/17 09:30 Baso # 0.0 K/mm3 (0.0-0.1) 12/02/17 09:30 Seg Neutrophils % 86.4 % (40.0-70.0) H 12/02/17 09:30 Seg Neutrophils # 10.6 K/mm3 (1.8-7.7) H 12/02/17 09:30 PT 34.2 Sec. (12.2-14.9) H 12/02/17 09:30 INR 3.11 (0.87-1.13) H 12/02/17 09:30 APTT 38.3 Sec. (24.2-36.6) H 12/01/17 Unknown Heparin Anti-Xa Level > 2.00 U.I./ml (0.3-0.7) H 12/01/17 09:14 POC ABG pH 7.279 (7.35-7.45) L 12/02/17 05:16 POC ABG pCO2 40.2 (35-45) 12/02/17 05:16 POC ABG pO2 136 (80-105) H 12/02/17 05:16 POC ABG HCO3 18.8 12/02/17 05:16 POC ABG Total CO2 20 12/02/17 05:16 POC ABG O2 Sat 99 12/02/17 05:16 POC ABG Base Excess -8 12/02/17 05:16 VBG pH 7.371 (7.320-7.420) 12/01/17 07:59 FiO2 40 % 12/02/17 05:16 Sodium 143 mmol/L (137-145) 12/02/17 09:30 Potassium 4.1 mmol/L (3.6-5.0) 12/02/17 09:30 Chloride 109.5 mmol/L (98-107) H 12/02/17 09:30 Carbon Dioxide 22 mmol/L (22-30) 12/02/17 09:30 Anion Gap 16 mmol/L 12/02/17 09:30 BUN 45 mg/dL (9-20) H 12/02/17 09:30 Creatinine 1.3 mg/dL (0.8-1.5) 12/02/17 09:30 Estimated GFR > 60 ml/min 12/02/17 09:30 BUN/Creatinine Ratio 35 % 12/02/17 09:30 Glucose 162 mg/dL (75-100) H 12/02/17 09:30 POC Glucose 172 (70-105) H 12/02/17 05:16 Lactic Acid 4.80 mmol/L (0.7-2.0) H* 12/01/17 10:09 Calcium 8.0 mg/dL (8.4-10.2) L 12/02/17 09:30 Magnesium 1.90 mg/dL (1.7-2.3) 12/01/17 07:59 Total Bilirubin 4.60 mg/dL (0.1-1.2) H 12/02/17 09:30 AST 87 units/L (5-40) H 12/02/17 09:30 ALT 42 units/L (7-56) 12/02/17 09:30 Alkaline Phosphatase 96 units/L (35-129) 12/02/17 09:30 Total Creatine Kinase 98 units/L (55-170) 12/01/17 07:59 Total Protein 5.2 g/dL (6.3-8.2) L 12/02/17 09:30 Albumin 2.5 g/dL (3.9-5) L 12/02/17 09:30 Albumin/Globulin Ratio 0.9 % 12/02/17 09:30 Urine Color Yellow (Yellow) 12/01/17 Unknown Urine Turbidity Clear (Clear) 12/01/17 Unknown Urine pH 5.0 (5.0-7.0) 12/01/17 Unknown Ur Specific [place] 1.013 (1.003-1.030) 12/01/17 Unknown Urine Protein 100 mg/dl mg/dL (Negative) 12/01/17 Unknown Urine Glucose (UA) Neg mg/dL (Negative) 12/01/17 Unknown Urine Ketones Neg mg/dL (Negative) 12/01/17 Unknown Urine Blood Neg (Negative) 12/01/17 Unknown Urine Nitrite Neg (Negative) 12/01/17 Unknown Urine Bilirubin Neg (Negative) 12/01/17 Unknown Urine Urobilinogen 4.0 mg/dL (<2.0) 12/01/17 Unknown Ur Leukocyte Esterase Neg (Negative) 12/01/17 Unknown Urine WBC (Auto) 4.0 /HPF (0.0-6.0) 12/01/17 Unknown Urine RBC (Auto) 1.0 /HPF (0.0-6.0) 12/01/17 Unknown Hyaline Casts 1 /LPF 12/01/17 Unknown Urine Mucus Few /HPF 12/01/17 Unknown Blood Type B POSITIVE 12/01/17 08:22 Antibody Screen Negative 12/01/17 08:22 Crossmatch See Detail 12/01/17 08:22
[2017-12-02] MEDS ORDERED: NACL 0.9% 1000 ML 1,000 ML IV ONE (12:00)
[2017-12-02] MEDS ORDERED: NACL 0.9% 500 ML 500 ML IV ONE (13:36)
[2017-12-02] MEDS: D5/0.45NS 1,000 ML IV SCH (19:05)
[2017-12-03] MEDS: SODIUM CHLORIDE FLUSH SYRINGE 10 ML IV SCH (00:51)
[2017-12-03] MEDS: ATIVAN IV PRN (00:51)
[2017-12-03] MEDS: LEVOPHED DRIP 4 MG/NS 250 ML 4 MG/250 ML BAG IV SCH ×3 (00:55→08:30)
[2017-12-03] MEDS: DUONEB *Not for PRN Use IH SCH ×4 (02:46→22:42)
--- NOTE | 2017-12-03 03:03 | XRay Report ---
FINAL REPORT PROCEDURE: XR CHEST 1V AP TECHNIQUE: Chest radiograph anteroposterior view. CPT 05356 HISTORY: follow up respiratory failure COMPARISON: 12/02/2017 FINDINGS: Heart: Normal. Mediastinum/Vessels: Multiple sternal wires are present. Lungs/Pleural space: Slight vascular congestion with bilateral lower lung atelectasis and moderate left effusion. No pneumothorax. Bony thorax: No acute osseous abnormality. Life support devices: The endotracheal tube ends 3 centimeters above the [place]. Right central catheter ends in the SVC. IMPRESSION: Slight vascular congestion with bilateral lower lung atelectasis and moderate left effusion. Tubes and lines properly positioned..
[2017-12-03] MEDS: D5/0.45NS 1,000 ML IV SCH ×3 (03:43→19:50)
[2017-12-03 06:19] LABS: Hematocrit 26.6 % (35.5-45.6); Lymphocytes # (Auto) 0.2 K/mm3 (1.2-5.4); Lymphocytes % (Auto) 1.9 % (13.4-35.0); Mean Corpuscular HGB Conc 34 % (32-34); Mean Corpuscular Hemoglobin 30 pg (28-32); Mean Corpuscular Volume 88 fl (84-94); Monocytes # (Auto) 1.1 K/mm3 (0.0-0.8); Monocytes % (Auto) 9.2 % (0.0-7.3); Platelet Count 274 K/mm3 (140-440); Red Blood Count 3.01 M/mm3 (3.65-5.03); Red Cell Distribution Width 16.6 % (13.2-15.2)
[2017-12-03 06:29] LABS: INR 1.57 (0.87-1.13)
[2017-12-03] MEDS ORDERED: NACL 0.9% 1000 ML 1,000 ML IV SCH (09:00)
--- NOTE | 2017-12-03 09:22 | Progress Note ---
Assessment and Plan Assessment and plan: Arterial Hypotension, persistent status post hemorrhagic shock. continue Levophed But in this pt with adrenal insufficiency, consider restarting stress dose steroids, will defer to the critical care team. Severe Acute blood loss Anemia s/p PRBC continue monitoring H/H, f.u GI reccs Acute hypoxic resp failure on MVS per CC team. Severe Protein calorie malnutrition continue current mgt plan h/o PE continue to hold anticoagulation for now Critically sick Further pt mgt per hospital course Daily labs Disposition Plan: Per hospital course Total Time Spent with Patient (Minutes): 30 minutes History Interval history: Pt seen and exam. Remains intubated and sedated. No family by bedside. IV antibiotics, no evidence of infection so far. inputs and reccs of the specialists appreciated. Hemoglobin remains stable for now post transfusion. wbc trended down to 11k. Hospitalist Physical - Constitutional Vitals: Temp Pulse Resp BP Pulse Ox 97.3 F L 80 20 82/58 100 12/03/17 08:00 12/03/17 08:58 12/03/17 08:58 12/03/17 08:58 12/03/17 08:58 General appearance: Present: no acute distress, other (intubated and sedated, awake) - EENT Eyes: Present: PERRL ENT: clear oral mucosa, other (orally intubated) - Neck Neck: Present: supple, normal ROM - Respiratory Respiratory: bilateral: CTA (Good AE bilaterally) - Cardiovascular Rhythm: regular Heart Sounds: Present: S1 & S2 - Extremities Extremities: pulses intact, pulses symmetrical, No edema, normal color - Abdominal General gastrointestinal: soft, non-distended, hypoactive bowel sounds - Integumentary Integumentary: Present: clear, dry - Psychiatric Psychiatric: other (unable to assess due intubated) - Neurologic Neurologic: other (intubated and sedated. ) - Allied Health Allied health notes reviewed: nursing, RT Results - Labs CBC & Chem 7: 12/03/17 05:05 12/02/17 09:30 Labs: Laboratory Last Values WBC 11.8 K/mm3 (4.5-11.0) H 12/03/17 05:05 RBC 3.01 M/mm3 (3.65-5.03) L 12/03/17 05:05 Hgb 9.0 gm/dl (11.8-15.2) L 12/03/17 05:05 Hct 26.6 % (35.5-45.6) L 12/03/17 05:05 MCV 88 fl (84-94) 12/03/17 05:05 MCH 30 pg (28-32) 12/03/17 05:05 MCHC 34 % (32-34) 12/03/17 05:05 RDW 16.6 % (13.2-15.2) H 12/03/17 05:05 Plt Count 274 K/mm3 (140-440) 12/03/17 05:05 Lymph % (Auto) 1.9 % (13.4-35.0) L 12/03/17 05:05 [place] % (Auto) 9.2 % (0.0-7.3) H 12/03/17 05:05 Eos % (Auto) 0.0 % (0.0-4.3) 12/03/17 05:05 Baso % (Auto) 0.0 % (0.0-1.8) 12/03/17 05:05 Lymph # 0.2 K/mm3 (1.2-5.4) L 12/03/17 05:05 [place] # 1.1 K/mm3 (0.0-0.8) H 12/03/17 05:05 Eos # 0.0 K/mm3 (0.0-0.4) 12/03/17 05:05 Baso # 0.0 K/mm3 (0.0-0.1) 12/03/17 05:05 Seg Neutrophils % 88.9 % (40.0-70.0) H 12/03/17 05:05 Seg Neutrophils # 10.5 K/mm3 (1.8-7.7) H 12/03/17 05:05 PT 19.7 Sec. (12.2-14.9) H 12/03/17 05:05 INR 1.57 (0.87-1.13) H 12/03/17 05:05 APTT 38.3 Sec. (24.2-36.6) H 12/01/17 Unknown Heparin Anti-Xa Level > 2.00 U.I./ml (0.3-0.7) H 12/01/17 09:14 POC ABG pH 7.364 (7.35-7.45) 12/03/17 04:59 POC ABG pCO2 39.7 (35-45) 12/03/17 04:59 POC ABG pO2 90 (80-105) 12/03/17 04:59 POC ABG HCO3 22.6 12/03/17 04:59 POC ABG Total CO2 24 12/03/17 04:59 POC ABG O2 Sat 97 12/03/17 04:59 POC ABG Base Excess -3 12/03/17 04:59 VBG pH 7.371 (7.320-7.420) 12/01/17 07:59 FiO2 30 % 12/03/17 04:59 Sodium 143 mmol/L (137-145) 12/02/17 09:30 Potassium 4.1 mmol/L (3.6-5.0) 12/02/17 09:30 Chloride 109.5 mmol/L (98-107) H 12/02/17 09:30 Carbon Dioxide 22 mmol/L (22-30) 12/02/17 09:30 Anion Gap 16 mmol/L 12/02/17 09:30 BUN 45 mg/dL (9-20) H 12/02/17 09:30 Creatinine 1.3 mg/dL (0.8-1.5) 12/02/17 09:30 Estimated GFR > 60 ml/min 12/02/17 09:30 BUN/Creatinine Ratio 35 % 12/02/17 09:30 Glucose 162 mg/dL (75-100) H 12/02/17 09:30 POC Glucose 171 (70-105) H 12/02/17 23:46 Lactic Acid 4.80 mmol/L (0.7-2.0) H* 12/01/17 10:09 Calcium 8.0 mg/dL (8.4-10.2) L 12/02/17 09:30 Magnesium 1.90 mg/dL (1.7-2.3) 12/01/17 07:59 Total Bilirubin 4.60 mg/dL (0.1-1.2) H 12/02/17 09:30 AST 87 units/L (5-40) H 12/02/17 09:30 ALT 42 units/L (7-56) 12/02/17 09:30 Alkaline Phosphatase 96 units/L (35-129) 12/02/17 09:30 Total Creatine Kinase 98 units/L (55-170) 12/01/17 07:59 Total Protein 5.2 g/dL (6.3-8.2) L 12/02/17 09:30 Albumin 2.5 g/dL (3.9-5) L 12/02/17 09:30 Albumin/Globulin Ratio 0.9 % 12/02/17 09:30 Urine Color Yellow (Yellow) 12/01/17 Unknown Urine Turbidity Clear (Clear) 12/01/17 Unknown Urine pH 5.0 (5.0-7.0) 12/01/17 Unknown Ur Specific [place] 1.013 (1.003-1.030) 12/01/17 Unknown Urine Protein 100 mg/dl mg/dL (Negative) 12/01/17 Unknown Urine Glucose (UA) Neg mg/dL (Negative) 12/01/17 Unknown Urine Ketones Neg mg/dL (Negative) 12/01/17 Unknown Urine Blood Neg (Negative) 12/01/17 Unknown Urine Nitrite Neg (Negative) 12/01/17 Unknown Urine Bilirubin Neg (Negative) 12/01/17 Unknown Urine Urobilinogen 4.0 mg/dL (<2.0) 12/01/17 Unknown Ur Leukocyte Esterase Neg (Negative) 12/01/17 Unknown Urine WBC (Auto) 4.0 /HPF (0.0-6.0) 12/01/17 Unknown Urine RBC (Auto) 1.0 /HPF (0.0-6.0) 12/01/17 Unknown Hyaline Casts 1 /LPF 12/01/17 Unknown Urine Mucus Few /HPF 12/01/17 Unknown Blood Type B POSITIVE 12/01/17 08:22 Antibody Screen Negative 12/01/17 08:22 Crossmatch See Detail 12/01/17 08:22 - Imaging and Cardiology EKG: report reviewed, image reviewed Chest x-ray: report reviewed, image reviewed
[2017-12-03] MEDS ORDERED: DIPRIVAN 10 MG/ML IV ONE (10:23)
[2017-12-03] MEDS ORDERED: WATER FOR IRRIG STERILE ONE (10:34)
--- NOTE | 2017-12-03 10:40 | Anesthesia Consultation ---
Anesthesia Consult and Med Hx Date of service: 12/03/17 - Airway Anesthetic Teeth Evaluation: Poor (multiple missing ) - Pulmonary Exam CTA: Yes - Cardiac Exam Cardiac Exam: RRR - Pre-Operative Health Status ASA Pre-Surgery Classification: ASA4 Proposed Anesthetic Plan: MAC - Pre-Anesthesia Comment Pre-Anesthesia Comments: intubated with fentanyl and levophed, unable to assess [place]. HX PE, xareleto, adrenal insuff, anemia, copd, gibleed - Pulmonary Hx Smoking: Yes COPD: Yes - Cardiovascular System Hx Hypertension: Yes Hx Valvular Heart Disease: Yes (mitral valve replacement) - Gastrointestinal Hx Ulcer: Yes Hx Gastroesophageal Reflux Disease: Yes - Endocrine Hx Renal Disease: Yes (acute renal insufficiency) - Hematic Hx Anemia: Yes
[2017-12-03] MEDS ORDERED: AMIDATE IV ONE (10:52)
[2017-12-03] MEDS ORDERED: NEO SYNEPHRINE ONE (10:52)
--- NOTE | 2017-12-03 11:37 | Post Operative Note ---
Date of procedure: 12/03/17 Pre-op diagnosis: GI bleed Post-op diagnosis: same (Duodenal bulb AVM treated with APC; otherwise no obvious source of bleeding or high risk lesions seen) Findings: 1. Duodenal AVM treated with APC Procedure: 1. EGD with control of bleeding (APC of AVM) Anesthesia: MAC Surgeon: MELECIO ESPINOSA Estimated blood loss: minimal Pathology: none Condition: stable Disposition: ICU
--- NOTE | 2017-12-03 11:39 | Operative Report ---
Operative Report Operative Report: Esophagogastroduodenoscopy Procedure Note with Control of bleeding (APC of AVM) Date of procedure: 12/03/2017 Endoscopist: Robson Gale Pre-op diagnosis: UGI bleed Post-op diagnosis: Duodenal bulb AVM treated with APC Anesthesia: MAC Complications: No immediate complications Estimated blood loss: minimal Procedure: After consent was obtained from 2 physicians (pt intubated and no family members present; and deemed emergent given hemorrhagic shock), the patient was placed in the supine position. The fujinon endoscope was inserted into the patient's mouth under direct vision, and advanced to the 2nd portion of duodenum without difficulty. The patient tolerated the procedure well. The views of the mucosa were good. Patient's vital signs were monitored continuously throughout the procedure. Findings: There was a hiatal hernia, otherwise the esophagus appeared normal. The stomach appeared normal. There was a medium-large sized AVM in the duodenal bulb. The AVM was treated with APC with hemostasis/successfully. Otherwise, bile was seen throughout the duodenum. Impression: 1. Duodenal bulb AVM treated with APC Recommendations: -hold anticoagulation for time being, can consider restarting in 2-3 days if no further signs of bleeding -will need to be on fpc iron replacement -trend labs -further management per ICU team
--- NOTE | 2017-12-03 11:42 | Anesthesia Day of Surgery ---
Anesthesia Day of Surgery - Day of Surgery Patient Examined: Yes Patient H&P Reviewed: Yes Patient is NPO: Yes
[2017-12-03] MEDS: fentaNYL DRIP Premix 2,000 MCG/100 ML BAG IV SCH ×2 (13:00→14:37)
--- NOTE | 2017-12-03 13:29 | Progress Note ---
Assessment and Plan 67 y/o male with acute blood loss anemia s/p 3 units of PRBC in coagulopathy secondary to xarelto. 1. Extubate today 2. Follow coagulopathy 3. Hold anticoagulation 4. Monitor in ICU at least 24 more hours CCT 31 minutes. Subjective Date of service: 12/03/17 Principal diagnosis: GI bleed Interval history: Scoped this am. AVM seen and burned. Objective Vital Signs - 12hr 12/03/17 12/03/17 12/03/17 01:30 01:40 01:50 Temperature Pulse Rate 75 75 74 Pulse Rate [ Anterior Bilateral Throughout] Respiratory 18 18 18 Rate Respiratory Rate [Anterior Bilateral Throughout] Blood Pressure 116/81 116/81 116/81 O2 Sat by Pulse 100 100 100 Oximetry 12/03/17 12/03/17 12/03/17 02:00 02:10 02:20 Temperature Pulse Rate 72 72 71 Pulse Rate [ Anterior Bilateral Throughout] Respiratory 18 18 18 Rate Respiratory Rate [Anterior Bilateral Throughout] Blood Pressure 122/80 122/80 125/80 O2 Sat by Pulse 100 100 100 Oximetry 12/03/17 12/03/17 12/03/17 02:30 02:40 02:45 Temperature Pulse Rate 72 76 Pulse Rate [ 72 Anterior Bilateral Throughout] Respiratory 18 18 Rate Respiratory 18 Rate [Anterior Bilateral Throughout] Blood Pressure 125/80 97/68 O2 Sat by Pulse 100 100 Oximetry 12/03/17 12/03/17 12/03/17 02:50 02:54 03:00 Temperature Pulse Rate 74 74 Pulse Rate [ 75 Anterior Bilateral Throughout] Respiratory 18 18 Rate Respiratory 18 Rate [Anterior Bilateral Throughout] Blood Pressure 116/77 116/77 O2 Sat by Pulse 100 100 Oximetry 12/03/17 12/03/17 12/03/17 03:10 03:20 03:30 Temperature Pulse Rate 76 72 73 Pulse Rate [ Anterior Bilateral Throughout] Respiratory 18 18 18 Rate Respiratory Rate [Anterior Bilateral Throughout] Blood Pressure 123/77 121/84 128/83 O2 Sat by Pulse 100 100 100 Oximetry 12/03/17 12/03/17 12/03/17 03:40 03:47 03:51 Temperature 97.0 F L Pulse Rate 76 73 Pulse Rate [ Anterior Bilateral Throughout] Respiratory 18 18 Rate Respiratory Rate [Anterior Bilateral Throughout] Blood Pressure 128/83 O2 Sat by Pulse 100 100 Oximetry 07/12/03/17 12/03/17 04:00 04:11 04:21 Temperature Pulse Rate 72 71 73 Pulse Rate [ Anterior Bilateral Throughout] Respiratory 18 18 18 Rate Respiratory Rate [Anterior Bilateral Throughout] Blood Pressure 128/84 128/84 122/75 O2 Sat by Pulse 100 100 Oximetry 12/03/17 12/03/17 12/03/17 04:30 04:41 04:51 Temperature Pulse Rate 91 H 94 H 88 Pulse Rate [ Anterior Bilateral Throughout] Respiratory 17 18 18 Rate Respiratory Rate [Anterior Bilateral Throughout] Blood Pressure 131/60 128/84 118/79 O2 Sat by Pulse 64 L 99 100 Oximetry 12/03/17 12/03/17 12/03/17 04:56 05:00 05:11 Temperature Pulse Rate 87 82 74 Pulse Rate [ Anterior Bilateral Throughout] Respiratory 18 18 Rate Respiratory Rate [Anterior Bilateral Throughout] Blood Pressure 118/79 110/77 110/77 O2 Sat by Pulse 100 100 100 Oximetry 12/03/17 12/03/17 12/03/17 05:21 05:30 05:41 Temperature Pulse Rate 74 75 75 Pulse Rate [ Anterior Bilateral Throughout] Respiratory 18 18 18 Rate Respiratory Rate [Anterior Bilateral Throughout] Blood Pressure 118/83 125/86 125/86 O2 Sat by Pulse 100 100 Oximetry 12/03/17 12/03/17 12/03/17 05:51 06:00 06:11 Temperature Pulse Rate 73 71 74 Pulse Rate [ Anterior Bilateral Throughout] Respiratory 18 18 18 Rate Respiratory Rate [Anterior Bilateral Throughout] Blood Pressure 129/85 131/84 131/84 O2 Sat by Pulse 100 100 100 Oximetry 12/03/17 12/03/17 12/03/17 06:21 06:30 06:41 Temperature Pulse Rate 73 73 74 Pulse Rate [ Anterior Bilateral Throughout] Respiratory 18 18 18 Rate Respiratory Rate [Anterior Bilateral Throughout] Blood Pressure 129/86 129/86 129/86 O2 Sat by Pulse 100 100 100 Oximetry 12/03/17 12/03/17 12/03/17 06:51 07:00 07:11 Temperature Pulse Rate 74 71 74 Pulse Rate [ Anterior Bilateral Throughout] Respiratory 18 18 18 Rate Respiratory Rate [Anterior Bilateral Throughout] Blood Pressure 131/87 125/84 125/84 O2 Sat by Pulse 100 100 100 Oximetry 12/03/17 12/03/17 12/03/17 07:21 07:30 07:45 Temperature Pulse Rate 73 71 74 Pulse Rate [ Anterior Bilateral Throughout] Respiratory 18 18 18 Rate Respiratory Rate [Anterior Bilateral Throughout] Blood Pressure 135/89 132/81 136/89 O2 Sat by Pulse 100 100 100 Oximetry 12/03/17 12/03/17 12/03/17 08:00 08:15 08:30 Temperature 97.3 F L Pulse Rate 72 84 72 Pulse Rate [ Anterior Bilateral Throughout] Respiratory 18 20 18 Rate Respiratory Rate [Anterior Bilateral Throughout] Blood Pressure 133/85 133/85 83/56 O2 Sat by Pulse 100 79 L Oximetry 12/03/17 12/03/17 12/03/17 08:45 08:58 09:00 Temperature Pulse Rate 68 85 84 Pulse Rate [ 80 Anterior Bilateral Throughout] Respiratory 18 18 19 Rate Respiratory 20 Rate [Anterior Bilateral Throughout] Blood Pressure 82/58 82/58 116/78 O2 Sat by Pulse 100 100 100 Oximetry 12/03/17 12/03/17 12/03/17 09:15 09:30 09:44 Temperature Pulse Rate 79 76 Pulse Rate [ 75 Anterior Bilateral Throughout] Respiratory 18 18 Rate Respiratory 19 Rate [Anterior Bilateral Throughout] Blood Pressure 120/85 119/83 O2 Sat by Pulse 100 100 Oximetry 12/03/17 12/03/17 12/03/17 09:45 10:00 10:15 Temperature Pulse Rate 77 98 H 86 Pulse Rate [ Anterior Bilateral Throughout] Respiratory 18 18 18 Rate Respiratory Rate [Anterior Bilateral Throughout] Blood Pressure 117/81 102/73 115/80 O2 Sat by Pulse 100 100 Oximetry 12/03/17 12/03/17 12/03/17 10:30 10:45 11:00 Temperature Pulse Rate 78 73 83 Pulse Rate [ Anterior Bilateral Throughout] Respiratory 18 18 20 Rate Respiratory Rate [Anterior Bilateral Throughout] Blood Pressure 104/69 93/63 103/72 O2 Sat by Pulse 100 100 72 L Oximetry 12/03/17 12/03/17 12/03/17 11:15 11:30 11:45 Temperature Pulse Rate 78 72 67 Pulse Rate [ Anterior Bilateral Throughout] Respiratory 19 18 18 Rate Respiratory Rate [Anterior Bilateral Throughout] Blood Pressure 114/80 127/90 110/76 O2 Sat by Pulse 100 100 100 Oximetry 12/03/17 12/03/17 12/03/17 11:51 11:55 12:00 Temperature 98.3 F 98.3 F Pulse Rate 98 H Pulse Rate [ Anterior Bilateral Throughout] Respiratory 39 H Rate Respiratory Rate [Anterior Bilateral Throughout] Blood Pressure 123/83 O2 Sat by Pulse 96 Oximetry Constitutional: no acute distress Eyes: non-icteric ENT: other (orally intubated and sedated) Neck: supple Effort: normal Ascultation: Bilateral: clear, diminished breath sounds Cardiovascular: regular rate and rhythm Gastrointestinal: soft Extremities: no cyanosis, no edema Neurologic: unable to assess CBC and BMP: 12/03/17 05:05 12/02/17 09:30 ABG, PT/INR, D-dimer: ABG POC ABG pH 7.364 (7.35-7.45) 12/03/17 04:59 POC ABG pCO2 39.7 (35-45) 12/03/17 04:59 POC ABG pO2 90 (80-105) 12/03/17 04:59 POC ABG HCO3 22.6 12/03/17 04:59 POC ABG Total CO2 24 12/03/17 04:59 POC ABG O2 Sat 97 12/03/17 04:59 PT/INR, D-dimer PT 19.7 Sec. (12.2-14.9) H 12/03/17 05:05 INR 1.57 (0.87-1.13) H 12/03/17 05:05 Abnormal lab findings: Abnormal Labs 12/01/17 12/01/17 12/01/17 07:59 07:59 07:59 WBC RBC 2.28 L Hgb 6.5 L Hct 21.3 L MCHC 31 L RDW 18.7 H Lymph % (Auto) 12.7 L [place] % (Auto) 9.0 H Lymph # 1.0 L [place] # Seg Neutrophils % 77.2 H Seg Neutrophils # PT 51.5 H INR 5.09 H* APTT Heparin Anti-Xa Level POC ABG pH POC ABG pO2 Chloride 97.9 L BUN 40 H Glucose POC Glucose Lactic Acid Calcium Total Bilirubin 2.70 H AST 49 H Total Protein 6.2 L Albumin 2.9 L Crossmatch 12/01/17 12/01/17 12/01/17 07:59 08:22 09:14 WBC RBC Hgb Hct MCHC RDW Lymph % (Auto) [place] % (Auto) Lymph # [place] # Seg Neutrophils % Seg Neutrophils # PT INR APTT Heparin Anti-Xa Level POC ABG pH POC ABG pO2 Chloride BUN Glucose POC Glucose Lactic Acid 3.70 H* 4.90 H* Calcium Total Bilirubin AST Total Protein Albumin Crossmatch See Detail 12/01/17 12/01/17 12/01/17 09:14 10:09 11:54 WBC RBC Hgb Hct MCHC RDW Lymph % (Auto) [place] % (Auto) Lymph # [place] # Seg Neutrophils % Seg Neutrophils # PT INR APTT Heparin Anti-Xa Level > 2.00 H POC ABG pH 7.112 L POC ABG pO2 113 H Chloride BUN Glucose POC Glucose Lactic Acid 4.80 H* Calcium Total Bilirubin AST Total Protein Albumin Crossmatch 12/01/17 12/01/17 12/02/17 Unknown Unknown 05:16 WBC RBC Hgb 7.4 L Hct 24.0 L MCHC RDW Lymph % (Auto) [place] % (Auto) Lymph # [place] # Seg Neutrophils % Seg Neutrophils # PT 39.4 H INR 3.71 H APTT 38.3 H Heparin Anti-Xa Level POC ABG pH POC ABG pO2 Chloride BUN Glucose POC Glucose 172 H Lactic Acid Calcium Total Bilirubin AST Total Protein Albumin Crossmatch 12/02/17 12/02/17 12/02/17 05:16 09:30 09:30 WBC 12.3 H RBC 3.29 L Hgb 9.6 L Hct 29.2 L MCHC RDW 16.7 H Lymph % (Auto) 5.2 L [place] % (Auto) 8.2 H Lymph # 0.6 L [place] # 1.0 H Seg Neutrophils % 86.4 H Seg Neutrophils # 10.6 H PT INR APTT Heparin Anti-Xa Level POC ABG pH 7.279 L POC ABG pO2 136 H Chloride 109.5 H BUN 45 H Glucose 162 H POC Glucose Lactic Acid Calcium 8.0 L Total Bilirubin 4.60 H AST 87 H Total Protein 5.2 L Albumin 2.5 L Crossmatch 12/02/17 12/02/17 12/02/17 09:30 19:07 23:15 WBC RBC Hgb Hct MCHC RDW Lymph % (Auto) [place] % (Auto) Lymph # [place] # Seg Neutrophils % Seg Neutrophils # PT 34.2 H INR 3.11 H APTT Heparin Anti-Xa Level POC ABG pH POC ABG pO2 Chloride BUN Glucose POC Glucose 171 H 201 H Lactic Acid Calcium Total Bilirubin AST Total Protein Albumin Crossmatch 12/02/17 12/03/17 12/03/17 23:46 05:05 05:05 WBC 11.8 H RBC 3.01 L Hgb 9.0 L Hct 26.6 L MCHC RDW 16.6 H Lymph % (Auto) 1.9 L [place] % (Auto) 9.2 H Lymph # 0.2 L [place] # 1.1 H Seg Neutrophils % 88.9 H Seg Neutrophils # 10.5 H PT 19.7 H INR 1.57 H APTT Heparin Anti-Xa Level POC ABG pH POC ABG pO2 Chloride BUN Glucose POC Glucose 171 H Lactic Acid Calcium Total Bilirubin AST Total Protein Albumin Crossmatch 12/03/17 10:12 WBC RBC Hgb Hct MCHC RDW Lymph % (Auto) [place] % (Auto) Lymph # [place] # Seg Neutrophils % Seg Neutrophils # PT INR APTT Heparin Anti-Xa Level POC ABG pH POC ABG pO2 Chloride BUN Glucose POC Glucose 140 H Lactic Acid Calcium Total Bilirubin AST Total Protein Albumin Crossmatch
[2017-12-03] MEDS: PROTONIX 80 MG in NACL 0.9% 100 ML IV SCH (16:00)
[2017-12-04] MEDS: PROTONIX 80 MG in NACL 0.9% 100 ML IV SCH (01:56)
--- NOTE | 2017-12-04 03:02 | XRay Report ---
FINAL REPORT PROCEDURE: XR CHEST 1V AP TECHNIQUE: Chest radiograph anteroposterior view. CPT 80709 HISTORY: follow up respiratory failure COMPARISON: 12/03/2017 FINDINGS: Heart: Normal. Mediastinum/Vessels: Multiple sternal wires are present. Lungs/Pleural space: Mild vascular congestion with slight lung atelectasis and effusion.. Bony thorax: No acute osseous abnormality. Life support devices: Right central catheter ends in the SVC. IMPRESSION: Mild vascular congestion with slight lower lung atelectasis and effusion. No significant change since prior study. Right central catheter is properly positioned..
[2017-12-04] MEDS: D5/0.45NS 1,000 ML IV SCH (03:35)
[2017-12-04] MEDS: DUONEB *Not for PRN Use IH SCH ×4 (04:26→20:42)
[2017-12-04 05:33] LABS: Hematocrit 25.6 % (35.5-45.6); Hemoglobin 8.6 gm/dl (11.8-15.2); Mean Corpuscular HGB Conc 33 % (32-34); Mean Corpuscular Hemoglobin 30 pg (28-32); Mean Corpuscular Volume 89 fl (84-94); Platelet Count 209 K/mm3 (140-440); Red Blood Count 2.87 M/mm3 (3.65-5.03); Red Cell Distribution Width 17.3 % (13.2-15.2)
[2017-12-04 06:00] LABS: BUN/Creatinine Ratio 23; Blood Urea Nitrogen 21 mg/dL (9-20); Calcium 8.2 mg/dL (8.4-10.2); Hemolysis Index 0
[2017-12-04] MEDS: SODIUM CHLORIDE FLUSH SYRINGE 10 ML IV SCH ×2 (07:54→09:31)
[2017-12-04] MEDS ORDERED: ATIVAN IV PRN (11:29)
--- NOTE | 2017-12-04 11:49 | Gastroenterology Progress Note ---
<KRZYSZTOF MIRANDA - Last Filed: 12/04/17 11:49> Assessment and Plan 1.GI bleed 2.melena 3.h/o GI bleed 2/2 AVMs (EGD 10/2017 revealed small AVMs x 2 with some blood (s /p APC), gastritis, and HH) -HGB 8.6- stable -continue to monitor H/H and transfuse as needed -hold blood thinning medications (may restart in anticoagulation in 2-3 days if no further signs of bleeding) -no active signs of bleeding overnight or this am -etiology- likely 2/2 AVMs vs other -s/p EGD yesterday that revealed a medium-large sized AVM in the duodenal bulb ( treated with APC) -okay to transition PPI gtt to BID -start on daily iron supplement (may need senior living iron replacment due to AVMs) -continue supportive care -patient okay to be d/c per GI standpoint if no further signs of bleeding with outpatient follow up appt -will sign off, please call if needed Subjective Date of service: 12/04/17 Principal diagnosis: GI bleed Interval history: No active signs of bleeding overnight or this am. Denies abd pain or N/V. Objective - Constitutional Vitals: Temp Pulse Resp BP Pulse Ox 99.7 F H 101 H 12 93/74 99 12/04/17 08:00 12/04/17 11:00 12/04/17 11:00 12/04/17 11:00 12/04/17 11:00 General appearance: no acute distress - Respiratory Respiratory: bilateral: diminished - Cardiovascular Rhythm: other (tachycardia) Heart Sounds: Present: S1 & S2 - Gastrointestinal General gastrointestinal: Present: soft, non-tender, non-distended, normal bowel sounds - Labs CBC & Chem 7: 12/04/17 05:00 12/04/17 05:00 Labs: Laboratory Results - last 24 hr 12/03/17 12/03/17 12/03/17 14:25 18:33 21:52 WBC RBC Hgb Hct MCV MCH MCHC RDW Plt Count Sodium Potassium Chloride Carbon Dioxide Anion Gap BUN Creatinine Estimated GFR BUN/Creatinine Ratio Glucose POC Glucose 117 H 107 H 107 H Calcium 12/04/17 12/04/17 12/04/17 02:06 05:00 05:00 WBC 8.9 RBC 2.87 L Hgb 8.6 L Hct 25.6 L MCV 89 MCH 30 MCHC 33 RDW 17.3 H Plt Count 209 Sodium 142 Potassium 3.6 Chloride 109.1 H Carbon Dioxide 23 Anion Gap 14 BUN 21 H Creatinine 0.9 Estimated GFR > 60 BUN/Creatinine Ratio 23 Glucose 159 H POC Glucose 116 H Calcium 8.2 L 12/04/17 12/04/17 06:40 10:23 WBC RBC Hgb Hct MCV MCH MCHC RDW Plt Count Sodium Potassium Chloride Carbon Dioxide Anion Gap BUN Creatinine Estimated GFR BUN/Creatinine Ratio Glucose POC Glucose 85 112 H Calcium <MELECIO ESPINOSA - Last Filed: 12/04/17 16:48> Assessment and Plan Pt seen and examined. Agree with note above. No further signs of overt gi bleeding. s/p egd with avm s/p apc tx. h/h stable. likely will need terminal manager iron replacement therapy. cont PPI daily. okay to restart AC if no signs of bleeding in a couple days with close monitoring of labs. if rebleeds on AC, risks may outweigh benefits at that time however. Will sign off, please call as needed or with questions. Objective - Constitutional Vitals: Temp Pulse Resp BP Pulse Ox 97.6 F 100 H 16 110/77 99 12/04/17 16:00 12/04/17 16:02 12/04/17 16:02 12/04/17 16:00 12/04/17 15:00 - Labs CBC & Chem 7: 12/04/17 15:45 12/04/17 05:00 Labs: Laboratory Results - last 24 hr 12/03/17 12/03/17 12/04/17 18:33 21:52 02:06 WBC RBC Hgb Hct MCV MCH MCHC RDW Plt Count Sodium Potassium Chloride Carbon Dioxide Anion Gap BUN Creatinine Estimated GFR BUN/Creatinine Ratio Glucose POC Glucose 107 H 107 H 116 H Calcium 12/04/17 12/04/17 12/04/17 05:00 05:00 06:40 WBC 8.9 RBC 2.87 L Hgb 8.6 L Hct 25.6 L MCV 89 MCH 30 MCHC 33 RDW 17.3 H Plt Count 209 Sodium 142 Potassium 3.6 Chloride 109.1 H Carbon Dioxide 23 Anion Gap 14 BUN 21 H Creatinine 0.9 Estimated GFR > 60 BUN/Creatinine Ratio 23 Glucose 159 H POC Glucose 85 Calcium 8.2 L 12/04/17 12/04/17 10:23 15:45 WBC RBC Hgb 8.8 L Hct 26.8 L MCV MCH MCHC RDW Plt Count Sodium Potassium Chloride Carbon Dioxide Anion Gap BUN Creatinine Estimated GFR BUN/Creatinine Ratio Glucose POC Glucose 112 H Calcium
--- NOTE | 2017-12-04 12:20 | Progress Note ---
Assessment and Plan 67 y/o male with acute blood loss anemia s/p 3 units of PRBC in coagulopathy secondary to xarelto. 1. DC syed 2. DC central line 3. Speech eval for swallowing, if fails will need Dobb-renae and speech consult 4. Stable for transfer to floor Subjective Date of service: 12/04/17 Principal diagnosis: GI bleed Interval history: Successful extubation and scope on yesterday. Still somewhat lethargic this am. Vitals stable. no further evidence of bleeding. Objective Vital Signs - 12hr 12/04/17 12/04/17 12/04/17 01:00 02:00 03:00 Temperature Pulse Rate 104 H 104 H 106 H Pulse Rate [ Anterior Bilateral Throughout] Pulse Rate [ Bilateral Throughout] Pulse Rate [ Right Radial] Respiratory 12 11 L 14 Rate Respiratory Rate [Anterior Bilateral Throughout] Respiratory Rate [Bilateral Throughout] Blood Pressure 105/72 103/73 107/78 O2 Sat by Pulse 100 94 Oximetry 12/04/17 12/04/17 12/04/17 04:00 04:30 05:00 Temperature Pulse Rate 107 H 105 H Pulse Rate [ 101 H Anterior Bilateral Throughout] Pulse Rate [ Bilateral Throughout] Pulse Rate [ Right Radial] Respiratory 13 15 Rate Respiratory 18 Rate [Anterior Bilateral Throughout] Respiratory Rate [Bilateral Throughout] Blood Pressure 107/80 110/82 O2 Sat by Pulse 89 100 Oximetry 12/04/17 12/04/17 12/04/17 06:00 07:00 08:00 Temperature 99.7 F H Pulse Rate 99 H 97 H 100 H Pulse Rate [ Anterior Bilateral Throughout] Pulse Rate [ Bilateral Throughout] Pulse Rate [ Right Radial] Respiratory 15 10 L 17 Rate Respiratory Rate [Anterior Bilateral Throughout] Respiratory Rate [Bilateral Throughout] Blood Pressure 110/74 94/66 97/72 O2 Sat by Pulse 98 100 100 Oximetry 12/04/17 12/04/17 12/04/17 08:48 09:00 09:11 Temperature Pulse Rate 97 H Pulse Rate [ 98 H 99 H Anterior Bilateral Throughout] Pulse Rate [ 99 H Bilateral Throughout] Pulse Rate [ Right Radial] Respiratory 13 Rate Respiratory 15 15 Rate [Anterior Bilateral Throughout] Respiratory 15 Rate [Bilateral Throughout] Blood Pressure 114/78 O2 Sat by Pulse 100 100 Oximetry 12/04/17 12/04/17 12/04/17 10:00 11:00 12:00 Temperature 97.9 F Pulse Rate 103 H 101 H 104 H Pulse Rate [ Anterior Bilateral Throughout] Pulse Rate [ Bilateral Throughout] Pulse Rate [ 105 H 101 H Right Radial] Respiratory 15 12 21 Rate Respiratory Rate [Anterior Bilateral Throughout] Respiratory Rate [Bilateral Throughout] Blood Pressure 106/73 93/74 92/67 O2 Sat by Pulse 99 99 100 Oximetry Constitutional: no acute distress Eyes: non-icteric Neck: supple Effort: normal Ascultation: Bilateral: clear, diminished breath sounds Cardiovascular: regular rate and rhythm Gastrointestinal: soft Extremities: no cyanosis, no edema Neurologic: unable to assess CBC and BMP: 12/04/17 05:00 12/04/17 05:00 ABG, PT/INR, D-dimer: ABG POC ABG pH 7.364 (7.35-7.45) 12/03/17 04:59 POC ABG pCO2 39.7 (35-45) 12/03/17 04:59 POC ABG pO2 90 (80-105) 12/03/17 04:59 POC ABG HCO3 22.6 12/03/17 04:59 POC ABG Total CO2 24 12/03/17 04:59 POC ABG O2 Sat 97 12/03/17 04:59 PT/INR, D-dimer PT 19.7 Sec. (12.2-14.9) H 12/03/17 05:05 INR 1.57 (0.87-1.13) H 12/03/17 05:05 Abnormal lab findings: Abnormal Labs 12/01/17 12/01/17 12/01/17 07:59 07:59 07:59 WBC RBC 2.28 L Hgb 6.5 L Hct 21.3 L MCHC 31 L RDW 18.7 H Lymph % (Auto) 12.7 L [place] % (Auto) 9.0 H Lymph # 1.0 L [place] # Seg Neutrophils % 77.2 H Seg Neutrophils # PT 51.5 H INR 5.09 H* APTT Heparin Anti-Xa Level POC ABG pH POC ABG pO2 Chloride 97.9 L BUN 40 H Glucose POC Glucose Lactic Acid Calcium Total Bilirubin 2.70 H AST 49 H Total Protein 6.2 L Albumin 2.9 L Crossmatch 12/01/17 12/01/17 12/01/17 07:59 08:22 09:14 WBC RBC Hgb Hct MCHC RDW Lymph % (Auto) [place] % (Auto) Lymph # [place] # Seg Neutrophils % Seg Neutrophils # PT INR APTT Heparin Anti-Xa Level POC ABG pH POC ABG pO2 Chloride BUN Glucose POC Glucose Lactic Acid 3.70 H* 4.90 H* Calcium Total Bilirubin AST Total Protein Albumin Crossmatch See Detail 12/01/17 12/01/17 12/01/17 09:14 10:09 11:54 WBC RBC Hgb Hct MCHC RDW Lymph % (Auto) [place] % (Auto) Lymph # [place] # Seg Neutrophils % Seg Neutrophils # PT INR APTT Heparin Anti-Xa Level > 2.00 H POC ABG pH 7.112 L POC ABG pO2 113 H Chloride BUN Glucose POC Glucose Lactic Acid 4.80 H* Calcium Total Bilirubin AST Total Protein Albumin Crossmatch 12/01/17 12/01/17 12/02/17 Unknown Unknown 05:16 WBC RBC Hgb 7.4 L Hct 24.0 L MCHC RDW Lymph % (Auto) [place] % (Auto) Lymph # [place] # Seg Neutrophils % Seg Neutrophils # PT 39.4 H INR 3.71 H APTT 38.3 H Heparin Anti-Xa Level POC ABG pH POC ABG pO2 Chloride BUN Glucose POC Glucose 172 H Lactic Acid Calcium Total Bilirubin AST Total Protein Albumin Crossmatch 12/02/17 12/02/17 12/02/17 05:16 09:30 09:30 WBC 12.3 H RBC 3.29 L Hgb 9.6 L Hct 29.2 L MCHC RDW 16.7 H Lymph % (Auto) 5.2 L [place] % (Auto) 8.2 H Lymph # 0.6 L [place] # 1.0 H Seg Neutrophils % 86.4 H Seg Neutrophils # 10.6 H PT INR APTT Heparin Anti-Xa Level POC ABG pH 7.279 L POC ABG pO2 136 H Chloride 109.5 H BUN 45 H Glucose 162 H POC Glucose Lactic Acid Calcium 8.0 L Total Bilirubin 4.60 H AST 87 H Total Protein 5.2 L Albumin 2.5 L Crossmatch 12/02/17 12/02/17 12/02/17 09:30 19:07 23:15 WBC RBC Hgb Hct MCHC RDW Lymph % (Auto) [place] % (Auto) Lymph # [place] # Seg Neutrophils % Seg Neutrophils # PT 34.2 H INR 3.11 H APTT Heparin Anti-Xa Level POC ABG pH POC ABG pO2 Chloride BUN Glucose POC Glucose 171 H 201 H Lactic Acid Calcium Total Bilirubin AST Total Protein Albumin Crossmatch 12/02/17 12/03/17 12/03/17 23:46 05:05 05:05 WBC 11.8 H RBC 3.01 L Hgb 9.0 L Hct 26.6 L MCHC RDW 16.6 H Lymph % (Auto) 1.9 L [place] % (Auto) 9.2 H Lymph # 0.2 L [place] # 1.1 H Seg Neutrophils % 88.9 H Seg Neutrophils # 10.5 H PT 19.7 H INR 1.57 H APTT Heparin Anti-Xa Level POC ABG pH POC ABG pO2 Chloride BUN Glucose POC Glucose 171 H Lactic Acid Calcium Total Bilirubin AST Total Protein Albumin Crossmatch 12/03/17 12/03/17 12/03/17 10:12 14:25 18:33 WBC RBC Hgb Hct MCHC RDW Lymph % (Auto) [place] % (Auto) Lymph # [place] # Seg Neutrophils % Seg Neutrophils # PT INR APTT Heparin Anti-Xa Level POC ABG pH POC ABG pO2 Chloride BUN Glucose POC Glucose 140 H 117 H 107 H Lactic Acid Calcium Total Bilirubin AST Total Protein Albumin Crossmatch 12/03/17 12/04/17 12/04/17 21:52 02:06 05:00 WBC RBC 2.87 L Hgb 8.6 L Hct 25.6 L MCHC RDW 17.3 H Lymph % (Auto) [place] % (Auto) Lymph # [place] # Seg Neutrophils % Seg Neutrophils # PT INR APTT Heparin Anti-Xa Level POC ABG pH POC ABG pO2 Chloride BUN Glucose POC Glucose 107 H 116 H Lactic Acid Calcium Total Bilirubin AST Total Protein Albumin Crossmatch 12/04/17 12/04/17 05:00 10:23 WBC RBC Hgb Hct MCHC RDW Lymph % (Auto) [place] % (Auto) Lymph # [place] # Seg Neutrophils % Seg Neutrophils # PT INR APTT Heparin Anti-Xa Level POC ABG pH POC ABG pO2 Chloride 109.1 H BUN 21 H Glucose 159 H POC Glucose 112 H Lactic Acid Calcium 8.2 L Total Bilirubin AST Total Protein Albumin Crossmatch
[2017-12-04] MEDS ORDERED: TRIPLE ANTIBIOTIC TP ONE (14:00)
[2017-12-04 16:22] LABS: Hematocrit 26.8 % (35.5-45.6); Hemoglobin 8.8 gm/dl (11.8-15.2)
--- NOTE | 2017-12-04 18:42 | XRay Report ---
FINAL REPORT EXAM: XR ABDOMEN 1V AP HISTORY: TUBE PLACEMENT TECHNIQUE: Supine portable views of the abdomen PRIORS: None. FINDINGS: Feeding tube terminates in the region of the stomach. The bowel gas pattern is nonspecific. No free air is identified. Alveolar infiltrate with air bronchograms in the left lung base is seen. IMPRESSION: Feeding tube terminates in the stomach.
--- NOTE | 2017-12-04 18:47 | Progress Note ---
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 Patient was unable to provide any form of information during the encounter due being intubated for deterioration in his condition. in the ED the patient was noted to be Severely anemic with H of 6.5, severely lethargic, altered mental status, severely hypotensive. BP was in the 70's Systolic. He was quite hypoxic. Pt was subsequently intubated for deterioration in his condition. Central line was also placed by the ED physician. He recieved multiple boluses of NS. Stat He was briefly on pressor support and reversal of anticogulation. The patient eventually had endoscopy with AVM noted. He was transfused 3 units PRBC and montored in the ICU after exubation prior to transfer to the floor, This is the second admission for anemia. Arterial Hypotension, persistent status post hemorrhagic shock. NOW RESOLVED levophed discontinued Severe Acute blood loss Anemia s/p PRBC continue monitoring H/H, f.u GI reccs secondary to AVM. S.P APC Start iron Acute hypoxic resp failure on MVS per CC team. extubated Severe Protein calorie malnutrition continue current mgt plan Acute encephalopathy Continue to monitor. Check CT brain Discontinue restraints h/o PE continue to hold anticoagulation for now dvt/gi prophy No family present discussed with nursing staff and marketing proposal specialist History Interval history: Patient seen and examined, remains with some lethargy but improved per ICU staff. patient still with some AMS. Hospitalist Physical - Constitutional Vitals: Temp Pulse Resp BP Pulse Ox 98.7 F 71 20 136/86 79 L 12/04/17 16:00 12/04/17 16:54 12/04/17 16:54 12/04/17 16:54 12/04/17 16:54 General appearance: Present: no acute distress, other (some confusion) - EENT Eyes: Present: PERRL ENT: other (missing dentition) - Respiratory Respiratory: bilateral: diminished - Cardiovascular Rhythm: regular Heart Sounds: Present: S1 & S2. Absent: systolic murmur - Extremities Extremities: no ischemia, pulses intact, pulses symmetrical Peripheral Pulses: within normal limits - Abdominal General gastrointestinal: soft, non-tender, non-distended - Integumentary Integumentary: Present: clear, warm, dry - Psychiatric Psychiatric: other (confused) - Neurologic Neurologic: CNII-XII intact, moves all extremities Results - Labs CBC & Chem 7: 12/04/17 15:45 12/04/17 05:00 Labs: Laboratory Last Values WBC 8.9 K/mm3 (4.5-11.0) 12/04/17 05:00 RBC 2.87 M/mm3 (3.65-5.03) L 12/04/17 05:00 Hgb 8.8 gm/dl (11.8-15.2) L 12/04/17 15:45 Hct 26.8 % (35.5-45.6) L 12/04/17 15:45 MCV 89 fl (84-94) 12/04/17 05:00 MCH 30 pg (28-32) 12/04/17 05:00 MCHC 33 % (32-34) 12/04/17 05:00 RDW 17.3 % (13.2-15.2) H 12/04/17 05:00 Plt Count 209 K/mm3 (140-440) 12/04/17 05:00 Lymph % (Auto) 1.9 % (13.4-35.0) L 12/03/17 05:05 [place] % (Auto) 9.2 % (0.0-7.3) H 12/03/17 05:05 Eos % (Auto) 0.0 % (0.0-4.3) 12/03/17 05:05 Baso % (Auto) 0.0 % (0.0-1.8) 12/03/17 05:05 Lymph # 0.2 K/mm3 (1.2-5.4) L 12/03/17 05:05 [place] # 1.1 K/mm3 (0.0-0.8) H 12/03/17 05:05 Eos # 0.0 K/mm3 (0.0-0.4) 12/03/17 05:05 Baso # 0.0 K/mm3 (0.0-0.1) 12/03/17 05:05 Seg Neutrophils % 88.9 % (40.0-70.0) H 12/03/17 05:05 Seg Neutrophils # 10.5 K/mm3 (1.8-7.7) H 12/03/17 05:05 PT 19.7 Sec. (12.2-14.9) H 12/03/17 05:05 INR 1.57 (0.87-1.13) H 12/03/17 05:05 APTT 38.3 Sec. (24.2-36.6) H 12/01/17 Unknown Heparin Anti-Xa Level > 2.00 U.I./ml (0.3-0.7) H 12/01/17 09:14 POC ABG pH 7.364 (7.35-7.45) 12/03/17 04:59 POC ABG pCO2 39.7 (35-45) 12/03/17 04:59 POC ABG pO2 90 (80-105) 12/03/17 04:59 POC ABG HCO3 22.6 12/03/17 04:59 POC ABG Total CO2 24 12/03/17 04:59 POC ABG O2 Sat 97 12/03/17 04:59 POC ABG Base Excess -3 12/03/17 04:59 VBG pH 7.371 (7.320-7.420) 12/01/17 07:59 FiO2 30 % 12/03/17 04:59 Sodium 142 mmol/L (137-145) 12/04/17 05:00 Potassium 3.6 mmol/L (3.6-5.0) 12/04/17 05:00 Chloride 109.1 mmol/L (98-107) H 12/04/17 05:00 Carbon Dioxide 23 mmol/L (22-30) 12/04/17 05:00 Anion Gap 14 mmol/L 12/04/17 05:00 BUN 21 mg/dL (9-20) H 12/04/17 05:00 Creatinine 0.9 mg/dL (0.8-1.5) 12/04/17 05:00 Estimated GFR > 60 ml/min 12/04/17 05:00 BUN/Creatinine Ratio 23 % 12/04/17 05:00 Glucose 159 mg/dL (75-100) H 12/04/17 05:00 POC Glucose 112 (70-105) H 12/04/17 10:23 Lactic Acid 4.80 mmol/L (0.7-2.0) H* 12/01/17 10:09 Calcium 8.2 mg/dL (8.4-10.2) L 12/04/17 05:00 Magnesium 1.90 mg/dL (1.7-2.3) 12/01/17 07:59 Total Bilirubin 4.60 mg/dL (0.1-1.2) H 12/02/17 09:30 AST 87 units/L (5-40) H 12/02/17 09:30 ALT 42 units/L (7-56) 12/02/17 09:30 Alkaline Phosphatase 96 units/L (35-129) 12/02/17 09:30 Total Creatine Kinase 98 units/L (55-170) 12/01/17 07:59 Total Protein 5.2 g/dL (6.3-8.2) L 12/02/17 09:30 Albumin 2.5 g/dL (3.9-5) L 12/02/17 09:30 Albumin/Globulin Ratio 0.9 % 12/02/17 09:30 Urine Color Yellow (Yellow) 12/01/17 Unknown Urine Turbidity Clear (Clear) 12/01/17 Unknown Urine pH 5.0 (5.0-7.0) 12/01/17 Unknown Ur Specific [place] 1.013 (1.003-1.030) 12/01/17 Unknown Urine Protein 100 mg/dl mg/dL (Negative) 12/01/17 Unknown Urine Glucose (UA) Neg mg/dL (Negative) 12/01/17 Unknown Urine Ketones Neg mg/dL (Negative) 12/01/17 Unknown Urine Blood Neg (Negative) 12/01/17 Unknown Urine Nitrite Neg (Negative) 12/01/17 Unknown Urine Bilirubin Neg (Negative) 12/01/17 Unknown Urine Urobilinogen 4.0 mg/dL (<2.0) 12/01/17 Unknown Ur Leukocyte Esterase Neg (Negative) 12/01/17 Unknown Urine WBC (Auto) 4.0 /HPF (0.0-6.0) 12/01/17 Unknown Urine RBC (Auto) 1.0 /HPF (0.0-6.0) 12/01/17 Unknown Hyaline Casts 1 /LPF 12/01/17 Unknown Urine Mucus Few /HPF 12/01/17 Unknown Blood Type B POSITIVE 12/01/17 08:22 Antibody Screen Negative 12/01/17 08:22 Crossmatch See Detail 12/01/17 08:22
--- NOTE | 2017-12-04 21:55 | Cat Scan Report ---
FINAL REPORT EXAM: CT HEAD/BRAIN WO CON HISTORY: AMS TECHNIQUE: Standard unenhanced CT of the head at 5.0 millimeter axial increments. PRIORS: None. FINDINGS: The ventricular system is normal in size and configuration. There is mild cerebral atrophy. There is no evidence for mass lesion, mass effect, midline shift, acute intracranial hemorrhage, or acute ischemia/ infarction. No evidence for acute skull fracture is seen. No abnormality in the overlying scalp soft tissues is seen. Visualized paranasal sinuses are clear. IMPRESSION: Mild atrophy. No acute intracranial process noted.
[2017-12-05] MEDS: PROTONIX IV SCH ×3 (00:54→21:46)
[2017-12-05] MEDS: SODIUM CHLORIDE FLUSH SYRINGE 10 ML IV SCH ×3 (00:55→21:47)
[2017-12-05] MEDS: FEOSOL PO SCH ×4 (00:55→21:46)
[2017-12-05] MEDS: DUONEB *Not for PRN Use IH SCH ×4 (02:15→20:02)
[2017-12-05 05:14] LABS: Hematocrit 27.8 % (35.5-45.6); Hemoglobin 8.9 gm/dl (11.8-15.2); Mean Corpuscular HGB Conc 32 % (32-34); Mean Corpuscular Hemoglobin 29 pg (28-32); Mean Corpuscular Volume 91 fl (84-94); Platelet Count 209 K/mm3 (140-440); Red Blood Count 3.06 M/mm3 (3.65-5.03); Red Cell Distribution Width 17.4 % (13.2-15.2)
[2017-12-05 05:26] LABS: BUN/Creatinine Ratio 20; Blood Urea Nitrogen 14 mg/dL (9-20); Calcium 8.4 mg/dL (8.4-10.2); Hemolysis Index 0
--- NOTE | 2017-12-05 06:25 | XRay Report ---
FINAL REPORT PROCEDURE: XR ABDOMEN 1V AP TECHNIQUE: Abdominal radiograph, single supine AP view. HISTORY: Dobhoff placement COMPARISON: No prior studies are available for comparison. FINDINGS: Bowel gas pattern:Nonobstructive. Masses or calcifications:None. Bony structures:No significant abnormality. Other:The feeding tube ends in the distal stomach. IMPRESSION: The feeding tube ends in the distal stomach
--- NOTE | 2017-12-05 13:44 | Progress Note ---
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 Patient was unable to provide any form of information during the encounter due being intubated for deterioration in his condition. in the ED the patient was noted to be Severely anemic with H of 6.5, severely lethargic, altered mental status, severely hypotensive. BP was in the 70's Systolic. He was quite hypoxic. Pt was subsequently intubated for deterioration in his condition. Central line was also placed by the ED physician. He recieved multiple boluses of NS. Stat He was briefly on pressor support and reversal of anticogulation. The patient eventually had endoscopy with AVM noted. He was transfused 3 units PRBC and montored in the ICU after exubation prior to transfer to the floor, This is the second admission for anemia. --Acute metabolic encephalopathy; multifactorial Probably secondary to dementia, hypoxia, and fluid overload IV Lasix, DC IV fluids, chest x-ray, oxygen titrated to O2 sats more than 90% --Acute hypoxic respiratory failure requiring intubation status post extubation Continue oxygen, nebulizers, supportive care, pulmonary following --Acute blood loss anemia; requiring multiple units of PRBC transfusion Closely monitor his H&H and transfuse additional as needed --Acute GI bleeding; secondary to AVM, Closely monitor --Severe protein calorie malnutrition; Nutrition supplements and supportive care --Dysphagia ; speech and swallow evaluated the patient, recommend pured diet Start puree diet as tolerated and advance slowly --History of PE; anticoagulation on hold In view of GI bleeding and severe anemia, closely monitor --DVT prophylaxis; SCDs --Physical therapy occupational therapy --DC planning. Case management --Full CODE STATUS Closely monitor the patient and adjust the management as needed History Interval history: Patient seen and examined medical records reviewed Nose reports that patient is restless and agitated mild shortness of breath Has been receiving IV fluids and Dobbhoff feeds DC fluids 1 dose of IV Lasix Check chest x-ray. Patient alert and responding to simple questions in mild distress Vital signs reviewed Hospitalist Physical - Constitutional Vitals: Temp Pulse Resp BP Pulse Ox 97.8 F 111 H 18 102/76 94 12/05/17 08:22 12/05/17 09:18 12/05/17 08:22 12/05/17 08:22 12/05/17 08:22 General appearance: Present: mild distress, other (some confusion) - EENT Eyes: Present: PERRL, EOM intact - Neck Neck: Present: supple, normal ROM - Respiratory Respiratory effort: normal Respiratory: bilateral: diminished, rales, negative: rhonchi, wheezing - Cardiovascular Rhythm: regular Heart Sounds: Present: S1 & S2 - Extremities Extremities: no ischemia, No edema - Abdominal General gastrointestinal: soft, non-tender, non-distended, normal bowel sounds - Integumentary Integumentary: Present: clear, warm - Psychiatric Psychiatric: appropriate mood/affect, cooperative - Neurologic Neurologic: CNII-XII intact, moves all extremities Results - Labs CBC & Chem 7: 12/05/17 04:02 12/05/17 04:02 Labs: Laboratory Last Values WBC 8.6 K/mm3 (4.5-11.0) 12/05/17 04:02 RBC 3.06 M/mm3 (3.65-5.03) L 12/05/17 04:02 Hgb 8.9 gm/dl (11.8-15.2) L 12/05/17 04:02 Hct 27.8 % (35.5-45.6) L 12/05/17 04:02 MCV 91 fl (84-94) 12/05/17 04:02 MCH 29 pg (28-32) 12/05/17 04:02 MCHC 32 % (32-34) 12/05/17 04:02 RDW 17.4 % (13.2-15.2) H 12/05/17 04:02 Plt Count 209 K/mm3 (140-440) 12/05/17 04:02 Lymph % (Auto) 1.9 % (13.4-35.0) L 12/03/17 05:05 [place] % (Auto) 9.2 % (0.0-7.3) H 12/03/17 05:05 Eos % (Auto) 0.0 % (0.0-4.3) 12/03/17 05:05 Baso % (Auto) 0.0 % (0.0-1.8) 12/03/17 05:05 Lymph # 0.2 K/mm3 (1.2-5.4) L 12/03/17 05:05 [place] # 1.1 K/mm3 (0.0-0.8) H 12/03/17 05:05 Eos # 0.0 K/mm3 (0.0-0.4) 12/03/17 05:05 Baso # 0.0 K/mm3 (0.0-0.1) 12/03/17 05:05 Seg Neutrophils % 88.9 % (40.0-70.0) H 12/03/17 05:05 Seg Neutrophils # 10.5 K/mm3 (1.8-7.7) H 12/03/17 05:05 PT 19.7 Sec. (12.2-14.9) H 12/03/17 05:05 INR 1.57 (0.87-1.13) H 12/03/17 05:05 APTT 38.3 Sec. (24.2-36.6) H 12/01/17 Unknown Heparin Anti-Xa Level > 2.00 U.I./ml (0.3-0.7) H 12/01/17 09:14 POC ABG pH 7.364 (7.35-7.45) 12/03/17 04:59 POC ABG pCO2 39.7 (35-45) 12/03/17 04:59 POC ABG pO2 90 (80-105) 12/03/17 04:59 POC ABG HCO3 22.6 12/03/17 04:59 POC ABG Total CO2 24 12/03/17 04:59 POC ABG O2 Sat 97 12/03/17 04:59 POC ABG Base Excess -3 12/03/17 04:59 VBG pH 7.371 (7.320-7.420) 12/01/17 07:59 FiO2 30 % 12/03/17 04:59 Sodium 144 mmol/L (137-145) 12/05/17 04:02 Potassium 3.3 mmol/L (3.6-5.0) L 12/05/17 04:02 Chloride 110.9 mmol/L (98-107) H 12/05/17 04:02 Carbon Dioxide 23 mmol/L (22-30) 12/05/17 04:02 Anion Gap 13 mmol/L 12/05/17 04:02 BUN 14 mg/dL (9-20) 12/05/17 04:02 Creatinine 0.7 mg/dL (0.8-1.5) L 12/05/17 04:02 Estimated GFR > 60 ml/min 12/05/17 04:02 BUN/Creatinine Ratio 20 % 12/05/17 04:02 Glucose 88 mg/dL (75-100) 12/05/17 04:02 POC Glucose 82 (70-105) 12/05/17 11:50 Lactic Acid 4.80 mmol/L (0.7-2.0) H* 12/01/17 10:09 Calcium 8.4 mg/dL (8.4-10.2) 12/05/17 04:02 Magnesium 1.90 mg/dL (1.7-2.3) 12/01/17 07:59 Total Bilirubin 4.60 mg/dL (0.1-1.2) H 12/02/17 09:30 AST 87 units/L (5-40) H 12/02/17 09:30 ALT 42 units/L (7-56) 12/02/17 09:30 Alkaline Phosphatase 96 units/L (35-129) 12/02/17 09:30 Total Creatine Kinase 98 units/L (55-170) 12/01/17 07:59 Total Protein 5.2 g/dL (6.3-8.2) L 12/02/17 09:30 Albumin 2.5 g/dL (3.9-5) L 12/02/17 09:30 Albumin/Globulin Ratio 0.9 % 12/02/17 09:30 Urine Color Yellow (Yellow) 12/01/17 Unknown Urine Turbidity Clear (Clear) 12/01/17 Unknown Urine pH 5.0 (5.0-7.0) 12/01/17 Unknown Ur Specific [place] 1.013 (1.003-1.030) 12/01/17 Unknown Urine Protein 100 mg/dl mg/dL (Negative) 12/01/17 Unknown Urine Glucose (UA) Neg mg/dL (Negative) 12/01/17 Unknown Urine Ketones Neg mg/dL (Negative) 12/01/17 Unknown Urine Blood Neg (Negative) 12/01/17 Unknown Urine Nitrite Neg (Negative) 12/01/17 Unknown Urine Bilirubin Neg (Negative) 12/01/17 Unknown Urine Urobilinogen 4.0 mg/dL (<2.0) 12/01/17 Unknown Ur Leukocyte Esterase Neg (Negative) 12/01/17 Unknown Urine WBC (Auto) 4.0 /HPF (0.0-6.0) 12/01/17 Unknown Urine RBC (Auto) 1.0 /HPF (0.0-6.0) 12/01/17 Unknown Hyaline Casts 1 /LPF 12/01/17 Unknown Urine Mucus Few /HPF 12/01/17 Unknown Blood Type B POSITIVE 12/01/17 08:22 Antibody Screen Negative 12/01/17 08:22 Crossmatch See Detail 12/01/17 08:22
[2017-12-05] MEDS ORDERED: LASIX IV ONE (14:27)
[2017-12-05] MEDS ORDERED: LASIX 60 MG in NACL 0.9% 50 ML IV ONE (15:00)
--- NOTE | 2017-12-05 15:29 | XRay Report ---
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 Feeding to terminates off the edge of the film below the left diaphragm Lungs and pleura: Trachea is normal in position.. There is bilateral moderate pleural effusions. Bibasilar atelectasis and perihilar vascular congestion is noted suggesting active CHF. Cardiomediastinal silhouette: Cardiac and mediastinal silhouettes are unremarkable. Other: Bony structures are intact. IMPRESSION: Mild CHF with bilateral effusions. There is also is bibasilar atelectasis.
--- NOTE | 2017-12-05 15:46 | Progress Note ---
Assessment and Plan 67 y/o male with acute blood loss anemia s/p 3 units of PRBC in coagulopathy secondary to xarelto. 1. Wean FiO2 to off for sats >88% Subjective Date of service: 12/05/17 Principal diagnosis: GI bleed Interval history: Successful transition to the floor. Pulm status stable. mental state about the same. Objective Vital Signs - 12hr 12/05/17 12/05/17 12/05/17 04:52 08:22 09:18 Temperature 97.7 F 97.8 F Pulse Rate 111 H 118 H 111 H Respiratory 20 18 Rate Blood Pressure 99/67 102/76 O2 Sat by Pulse 96 94 Oximetry Constitutional: no acute distress Eyes: non-icteric Neck: supple Effort: normal Ascultation: Bilateral: clear, diminished breath sounds Cardiovascular: regular rate and rhythm Gastrointestinal: soft Extremities: no cyanosis, no edema Neurologic: unable to assess CBC and BMP: 12/05/17 04:02 12/05/17 04:02 ABG, PT/INR, D-dimer: ABG POC ABG pH 7.364 (7.35-7.45) 12/03/17 04:59 POC ABG pCO2 39.7 (35-45) 12/03/17 04:59 POC ABG pO2 90 (80-105) 12/03/17 04:59 POC ABG HCO3 22.6 12/03/17 04:59 POC ABG Total CO2 24 12/03/17 04:59 POC ABG O2 Sat 97 12/03/17 04:59 PT/INR, D-dimer PT 19.7 Sec. (12.2-14.9) H 12/03/17 05:05 INR 1.57 (0.87-1.13) H 12/03/17 05:05 Abnormal lab findings: Abnormal Labs 12/01/17 12/01/17 12/01/17 07:59 07:59 07:59 WBC RBC 2.28 L Hgb 6.5 L Hct 21.3 L MCHC 31 L RDW 18.7 H Lymph % (Auto) 12.7 L [place] % (Auto) 9.0 H Lymph # 1.0 L [place] # Seg Neutrophils % 77.2 H Seg Neutrophils # PT 51.5 H INR 5.09 H* APTT Heparin Anti-Xa Level POC ABG pH POC ABG pO2 Potassium Chloride 97.9 L BUN 40 H Creatinine Glucose POC Glucose Lactic Acid Calcium Total Bilirubin 2.70 H AST 49 H Total Protein 6.2 L Albumin 2.9 L Crossmatch 12/01/17 12/01/17 12/01/17 07:59 08:22 09:14 WBC RBC Hgb Hct MCHC RDW Lymph % (Auto) [place] % (Auto) Lymph # [place] # Seg Neutrophils % Seg Neutrophils # PT INR APTT Heparin Anti-Xa Level POC ABG pH POC ABG pO2 Potassium Chloride BUN Creatinine Glucose POC Glucose Lactic Acid 3.70 H* 4.90 H* Calcium Total Bilirubin AST Total Protein Albumin Crossmatch See Detail 12/01/17 12/01/17 12/01/17 09:14 10:09 11:54 WBC RBC Hgb Hct MCHC RDW Lymph % (Auto) [place] % (Auto) Lymph # [place] # Seg Neutrophils % Seg Neutrophils # PT INR APTT Heparin Anti-Xa Level > 2.00 H POC ABG pH 7.112 L POC ABG pO2 113 H Potassium Chloride BUN Creatinine Glucose POC Glucose Lactic Acid 4.80 H* Calcium Total Bilirubin AST Total Protein Albumin Crossmatch 12/01/17 12/01/17 12/02/17 Unknown Unknown 05:16 WBC RBC Hgb 7.4 L Hct 24.0 L MCHC RDW Lymph % (Auto) [place] % (Auto) Lymph # [place] # Seg Neutrophils % Seg Neutrophils # PT 39.4 H INR 3.71 H APTT 38.3 H Heparin Anti-Xa Level POC ABG pH POC ABG pO2 Potassium Chloride BUN Creatinine Glucose POC Glucose 172 H Lactic Acid Calcium Total Bilirubin AST Total Protein Albumin Crossmatch 12/02/17 12/02/17 12/02/17 05:16 09:30 09:30 WBC 12.3 H RBC 3.29 L Hgb 9.6 L Hct 29.2 L MCHC RDW 16.7 H Lymph % (Auto) 5.2 L [place] % (Auto) 8.2 H Lymph # 0.6 L [place] # 1.0 H Seg Neutrophils % 86.4 H Seg Neutrophils # 10.6 H PT INR APTT Heparin Anti-Xa Level POC ABG pH 7.279 L POC ABG pO2 136 H Potassium Chloride 109.5 H BUN 45 H Creatinine Glucose 162 H POC Glucose Lactic Acid Calcium 8.0 L Total Bilirubin 4.60 H AST 87 H Total Protein 5.2 L Albumin 2.5 L Crossmatch 12/02/17 12/02/17 12/02/17 09:30 19:07 23:15 WBC RBC Hgb Hct MCHC RDW Lymph % (Auto) [place] % (Auto) Lymph # [place] # Seg Neutrophils % Seg Neutrophils # PT 34.2 H INR 3.11 H APTT Heparin Anti-Xa Level POC ABG pH POC ABG pO2 Potassium Chloride BUN Creatinine Glucose POC Glucose 171 H 201 H Lactic Acid Calcium Total Bilirubin AST Total Protein Albumin Crossmatch 12/02/17 12/03/17 12/03/17 23:46 05:05 05:05 WBC 11.8 H RBC 3.01 L Hgb 9.0 L Hct 26.6 L MCHC RDW 16.6 H Lymph % (Auto) 1.9 L [place] % (Auto) 9.2 H Lymph # 0.2 L [place] # 1.1 H Seg Neutrophils % 88.9 H Seg Neutrophils # 10.5 H PT 19.7 H INR 1.57 H APTT Heparin Anti-Xa Level POC ABG pH POC ABG pO2 Potassium Chloride BUN Creatinine Glucose POC Glucose 171 H Lactic Acid Calcium Total Bilirubin AST Total Protein Albumin Crossmatch 12/03/17 12/03/17 12/03/17 10:12 14:25 18:33 WBC RBC Hgb Hct MCHC RDW Lymph % (Auto) [place] % (Auto) Lymph # [place] # Seg Neutrophils % Seg Neutrophils # PT INR APTT Heparin Anti-Xa Level POC ABG pH POC ABG pO2 Potassium Chloride BUN Creatinine Glucose POC Glucose 140 H 117 H 107 H Lactic Acid Calcium Total Bilirubin AST Total Protein Albumin Crossmatch 12/03/17 12/04/17 12/04/17 21:52 02:06 05:00 WBC RBC 2.87 L Hgb 8.6 L Hct 25.6 L MCHC RDW 17.3 H Lymph % (Auto) [place] % (Auto) Lymph # [place] # Seg Neutrophils % Seg Neutrophils # PT INR APTT Heparin Anti-Xa Level POC ABG pH POC ABG pO2 Potassium Chloride BUN Creatinine Glucose POC Glucose 107 H 116 H Lactic Acid Calcium Total Bilirubin AST Total Protein Albumin Crossmatch 12/04/17 12/04/17 12/04/17 05:00 10:23 15:45 WBC RBC Hgb 8.8 L Hct 26.8 L MCHC RDW Lymph % (Auto) [place] % (Auto) Lymph # [place] # Seg Neutrophils % Seg Neutrophils # PT INR APTT Heparin Anti-Xa Level POC ABG pH POC ABG pO2 Potassium Chloride 109.1 H BUN 21 H Creatinine Glucose 159 H POC Glucose 112 H Lactic Acid Calcium 8.2 L Total Bilirubin AST Total Protein Albumin Crossmatch 12/05/17 12/05/17 04:02 04:02 WBC RBC 3.06 L Hgb 8.9 L Hct 27.8 L MCHC RDW 17.4 H Lymph % (Auto) [place] % (Auto) Lymph # [place] # Seg Neutrophils % Seg Neutrophils # PT INR APTT Heparin Anti-Xa Level POC ABG pH POC ABG pO2 Potassium 3.3 L Chloride 110.9 H BUN Creatinine 0.7 L Glucose POC Glucose Lactic Acid Calcium Total Bilirubin AST Total Protein Albumin Crossmatch
[2017-12-05] MEDS ORDERED: HALDOL IM PRN (17:25)
[2017-12-05] MEDS ORDERED: K-DUR PO ONE (17:37)
[2017-12-05] MEDS ORDERED: PROVENTIL IH PRN (22:44)
[2017-12-06 07:03] LABS: Basophils % (Auto) 0.1 % (0.0-1.8); Eosinophils % (Auto) 0.3 % (0.0-4.3); Lymphocytes # (Auto) 0.7 K/mm3 (1.2-5.4); Lymphocytes % (Auto) 7.5 % (13.4-35.0); Mean Corpuscular HGB Conc 32 % (32-34); Mean Corpuscular Hemoglobin 29 pg (28-32); Mean Corpuscular Volume 91 fl (84-94); Monocytes # (Auto) 1.6 K/mm3 (0.0-0.8); Monocytes % (Auto) 15.9 % (0.0-7.3); Platelet Count 238 K/mm3 (140-440); Red Blood Count 3.08 M/mm3 (3.65-5.03); Red Cell Distribution Width 17.3 % (13.2-15.2)
[2017-12-06] MEDS: DUONEB *Not for PRN Use IH SCH ×3 (07:59→19:57)
[2017-12-06] MEDS: FEOSOL PO SCH ×3 (10:13→22:08)
[2017-12-06] MEDS: PROTONIX IV SCH ×2 (11:14→22:09)
[2017-12-06] MEDS: LASIX IV SCH (11:14)
[2017-12-06] MEDS: SODIUM CHLORIDE FLUSH SYRINGE 10 ML IV SCH ×2 (11:14→22:09)
--- NOTE | 2017-12-06 11:27 | Progress Note ---
Assessment and Plan Assessment and plan: --Acute metabolic encephalopathy; multifactorial Probably secondary to dementia, hypoxia, and fluid overload IV Lasix, supportive care --Acute hypoxic respiratory failure requiring intubation status post extubation Continue oxygen, nebulizers, supportive care, pulmonary following --Acute blood loss anemia; requiring total 4 units of PRBC transfusion Closely monitor his H&H and transfuse additional as needed --Acute GI bleeding; secondary to AVM, no new episodes of bleeding --Severe protein calorie malnutrition; Nutrition supplements and supportive care --Dysphagia ; speech and swallow evaluated the patient, recommend pured diet --History of PE; anticoagulation on hold, In view of GI bleeding and severe anemia, --DVT prophylaxis; SCDs --Physical therapy occupational therapy --DC planning. Case management --Full CODE STATUS Closely monitor the patient and adjust the management as needed Plan of care is reviewed with the patient's nurse History Interval history: Patient seen and examined medical records reviewed No new events reported by the nursing staff Patient still confused, not in acute distress Vital signs reviewed Hospitalist Physical - Constitutional Vitals: Temp Pulse Resp BP Pulse Ox 97.8 F 111 H 18 105/58 100 12/06/17 08:59 12/06/17 08:59 12/06/17 08:59 12/06/17 08:59 12/06/17 08:59 General appearance: Present: no acute distress, well-nourished, other (some confusion) - EENT Eyes: Present: PERRL, EOM intact - Neck Neck: Present: supple, normal ROM - Respiratory Respiratory effort: normal Respiratory: bilateral: diminished, negative: rales, rhonchi, wheezing - Cardiovascular Rhythm: regular Heart Sounds: Present: S1 & S2 - Extremities Extremities: no ischemia, No edema - Abdominal General gastrointestinal: soft, non-tender, non-distended, normal bowel sounds - Integumentary Integumentary: Present: clear, warm - Psychiatric Psychiatric: appropriate mood/affect, cooperative - Neurologic Neurologic: CNII-XII intact, moves all extremities Results - Labs CBC & Chem 7: 12/06/17 06:36 12/05/17 04:02 Labs: Laboratory Last Values WBC 9.9 K/mm3 (4.5-11.0) 12/06/17 06:36 RBC 3.08 M/mm3 (3.65-5.03) L 12/06/17 06:36 Hgb 9.0 gm/dl (11.8-15.2) L 12/06/17 06:36 Hct 28.0 % (35.5-45.6) L 12/06/17 06:36 MCV 91 fl (84-94) 12/06/17 06:36 MCH 29 pg (28-32) 12/06/17 06:36 MCHC 32 % (32-34) 12/06/17 06:36 RDW 17.3 % (13.2-15.2) H 12/06/17 06:36 Plt Count 238 K/mm3 (140-440) 12/06/17 06:36 Lymph % (Auto) 7.5 % (13.4-35.0) L 12/06/17 06:36 [place] % (Auto) 15.9 % (0.0-7.3) H 12/06/17 06:36 Eos % (Auto) 0.3 % (0.0-4.3) 12/06/17 06:36 Baso % (Auto) 0.1 % (0.0-1.8) 12/06/17 06:36 Lymph # 0.7 K/mm3 (1.2-5.4) L 12/06/17 06:36 [place] # 1.6 K/mm3 (0.0-0.8) H 12/06/17 06:36 Eos # 0.0 K/mm3 (0.0-0.4) 12/06/17 06:36 Baso # 0.0 K/mm3 (0.0-0.1) 12/06/17 06:36 Seg Neutrophils % 76.2 % (40.0-70.0) H 12/06/17 06:36 Seg Neutrophils # 7.6 K/mm3 (1.8-7.7) 12/06/17 06:36 PT 19.7 Sec. (12.2-14.9) H 12/03/17 05:05 INR 1.57 (0.87-1.13) H 12/03/17 05:05 APTT 38.3 Sec. (24.2-36.6) H 12/01/17 Unknown Heparin Anti-Xa Level > 2.00 U.I./ml (0.3-0.7) H 12/01/17 09:14 POC ABG pH 7.364 (7.35-7.45) 12/03/17 04:59 POC ABG pCO2 39.7 (35-45) 12/03/17 04:59 POC ABG pO2 90 (80-105) 12/03/17 04:59 POC ABG HCO3 22.6 12/03/17 04:59 POC ABG Total CO2 24 12/03/17 04:59 POC ABG O2 Sat 97 12/03/17 04:59 POC ABG Base Excess -3 12/03/17 04:59 VBG pH 7.371 (7.320-7.420) 12/01/17 07:59 FiO2 30 % 12/03/17 04:59 Sodium 144 mmol/L (137-145) 12/05/17 04:02 Potassium 3.3 mmol/L (3.6-5.0) L 12/05/17 04:02 Chloride 110.9 mmol/L (98-107) H 12/05/17 04:02 Carbon Dioxide 23 mmol/L (22-30) 12/05/17 04:02 Anion Gap 13 mmol/L 12/05/17 04:02 BUN 14 mg/dL (9-20) 12/05/17 04:02 Creatinine 0.7 mg/dL (0.8-1.5) L 12/05/17 04:02 Estimated GFR > 60 ml/min 12/05/17 04:02 BUN/Creatinine Ratio 20 % 12/05/17 04:02 Glucose 88 mg/dL (75-100) 12/05/17 04:02 POC Glucose 69 (70-105) L 12/06/17 06:38 Lactic Acid 4.80 mmol/L (0.7-2.0) H* 12/01/17 10:09 Calcium 8.4 mg/dL (8.4-10.2) 12/05/17 04:02 Magnesium 2.00 mg/dL (1.7-2.3) 12/06/17 06:36 Total Bilirubin 4.60 mg/dL (0.1-1.2) H 12/02/17 09:30 AST 87 units/L (5-40) H 12/02/17 09:30 ALT 42 units/L (7-56) 12/02/17 09:30 Alkaline Phosphatase 96 units/L (35-129) 12/02/17 09:30 Total Creatine Kinase 98 units/L (55-170) 12/01/17 07:59 Total Protein 5.2 g/dL (6.3-8.2) L 12/02/17 09:30 Albumin 2.5 g/dL (3.9-5) L 12/02/17 09:30 Albumin/Globulin Ratio 0.9 % 12/02/17 09:30 Urine Color Yellow (Yellow) 12/01/17 Unknown Urine Turbidity Clear (Clear) 12/01/17 Unknown Urine pH 5.0 (5.0-7.0) 12/01/17 Unknown Ur Specific [place] 1.013 (1.003-1.030) 12/01/17 Unknown Urine Protein 100 mg/dl mg/dL (Negative) 12/01/17 Unknown Urine Glucose (UA) Neg mg/dL (Negative) 12/01/17 Unknown Urine Ketones Neg mg/dL (Negative) 12/01/17 Unknown Urine Blood Neg (Negative) 12/01/17 Unknown Urine Nitrite Neg (Negative) 12/01/17 Unknown Urine Bilirubin Neg (Negative) 12/01/17 Unknown Urine Urobilinogen 4.0 mg/dL (<2.0) 12/01/17 Unknown Ur Leukocyte Esterase Neg (Negative) 12/01/17 Unknown Urine WBC (Auto) 4.0 /HPF (0.0-6.0) 12/01/17 Unknown Urine RBC (Auto) 1.0 /HPF (0.0-6.0) 12/01/17 Unknown Hyaline Casts 1 /LPF 12/01/17 Unknown Urine Mucus Few /HPF 12/01/17 Unknown Blood Type B POSITIVE 12/01/17 08:22 Antibody Screen Negative 12/01/17 08:22 Crossmatch See Detail 12/01/17 08:22
--- NOTE | 2017-12-06 12:02 | Progress Note ---
Assessment and Plan 67 y/o male with acute blood loss anemia s/p 3 units of PRBC in coagulopathy secondary to xarelto. 1. Wean FiO2 to off for sats >88%. Should be able to wean to off 2. Will sign off, call if questions. Subjective Date of service: 12/06/17 Principal diagnosis: GI bleed Interval history: No acute events. patient is down to 3 liters nasal cannula with sat of 100. Does not wear oxygen at home. Remainder is negative. Objective Vital Signs - 12hr 12/06/17 12/06/17 12/06/17 01:55 05:09 08:00 Temperature 99.3 F Pulse Rate 118 H Pulse Rate [ 100 H Anterior Bilateral Throughout] Respiratory 20 22 Rate Respiratory 22 Rate [Anterior Bilateral Throughout] Blood Pressure 90/66 98/73 O2 Sat by Pulse 97 Oximetry 12/06/17 12/06/17 12/06/17 08:03 08:09 08:59 Temperature 97.8 F Pulse Rate 111 H Pulse Rate [ 108 H Anterior Bilateral Throughout] Respiratory 18 Rate Respiratory 22 Rate [Anterior Bilateral Throughout] Blood Pressure 105/58 O2 Sat by Pulse 100 100 Oximetry Constitutional: no acute distress Eyes: non-icteric ENT: other (orally intubated and sedated) Neck: supple Effort: normal Ascultation: Bilateral: clear, diminished breath sounds Cardiovascular: regular rate and rhythm Gastrointestinal: soft Extremities: no cyanosis, no edema Neurologic: unable to assess CBC and BMP: 12/06/17 06:36 12/05/17 04:02 ABG, PT/INR, D-dimer: ABG POC ABG pH 7.364 (7.35-7.45) 12/03/17 04:59 POC ABG pCO2 39.7 (35-45) 12/03/17 04:59 POC ABG pO2 90 (80-105) 12/03/17 04:59 POC ABG HCO3 22.6 12/03/17 04:59 POC ABG Total CO2 24 12/03/17 04:59 POC ABG O2 Sat 97 12/03/17 04:59 PT/INR, D-dimer PT 19.7 Sec. (12.2-14.9) H 12/03/17 05:05 INR 1.57 (0.87-1.13) H 12/03/17 05:05 Abnormal lab findings: Abnormal Labs 12/01/17 12/01/17 12/01/17 07:59 07:59 07:59 WBC RBC 2.28 L Hgb 6.5 L Hct 21.3 L MCHC 31 L RDW 18.7 H Lymph % (Auto) 12.7 L [place] % (Auto) 9.0 H Lymph # 1.0 L [place] # Seg Neutrophils % 77.2 H Seg Neutrophils # PT 51.5 H INR 5.09 H* APTT Heparin Anti-Xa Level POC ABG pH POC ABG pO2 Potassium Chloride 97.9 L BUN 40 H Creatinine Glucose POC Glucose Lactic Acid Calcium Total Bilirubin 2.70 H AST 49 H Total Protein 6.2 L Albumin 2.9 L Crossmatch 12/01/17 12/01/17 12/01/17 07:59 08:22 09:14 WBC RBC Hgb Hct MCHC RDW Lymph % (Auto) [place] % (Auto) Lymph # [place] # Seg Neutrophils % Seg Neutrophils # PT INR APTT Heparin Anti-Xa Level POC ABG pH POC ABG pO2 Potassium Chloride BUN Creatinine Glucose POC Glucose Lactic Acid 3.70 H* 4.90 H* Calcium Total Bilirubin AST Total Protein Albumin Crossmatch See Detail 12/01/17 12/01/17 12/01/17 09:14 10:09 11:54 WBC RBC Hgb Hct MCHC RDW Lymph % (Auto) [place] % (Auto) Lymph # [place] # Seg Neutrophils % Seg Neutrophils # PT INR APTT Heparin Anti-Xa Level > 2.00 H POC ABG pH 7.112 L POC ABG pO2 113 H Potassium Chloride BUN Creatinine Glucose POC Glucose Lactic Acid 4.80 H* Calcium Total Bilirubin AST Total Protein Albumin Crossmatch 12/01/17 12/01/17 12/02/17 Unknown Unknown 05:16 WBC RBC Hgb 7.4 L Hct 24.0 L MCHC RDW Lymph % (Auto) [place] % (Auto) Lymph # [place] # Seg Neutrophils % Seg Neutrophils # PT 39.4 H INR 3.71 H APTT 38.3 H Heparin Anti-Xa Level POC ABG pH POC ABG pO2 Potassium Chloride BUN Creatinine Glucose POC Glucose 172 H Lactic Acid Calcium Total Bilirubin AST Total Protein Albumin Crossmatch 12/02/17 12/02/17 12/02/17 05:16 09:30 09:30 WBC 12.3 H RBC 3.29 L Hgb 9.6 L Hct 29.2 L MCHC RDW 16.7 H Lymph % (Auto) 5.2 L [place] % (Auto) 8.2 H Lymph # 0.6 L [place] # 1.0 H Seg Neutrophils % 86.4 H Seg Neutrophils # 10.6 H PT INR APTT Heparin Anti-Xa Level POC ABG pH 7.279 L POC ABG pO2 136 H Potassium Chloride 109.5 H BUN 45 H Creatinine Glucose 162 H POC Glucose Lactic Acid Calcium 8.0 L Total Bilirubin 4.60 H AST 87 H Total Protein 5.2 L Albumin 2.5 L Crossmatch 12/02/17 12/02/17 12/02/17 09:30 19:07 23:15 WBC RBC Hgb Hct MCHC RDW Lymph % (Auto) [place] % (Auto) Lymph # [place] # Seg Neutrophils % Seg Neutrophils # PT 34.2 H INR 3.11 H APTT Heparin Anti-Xa Level POC ABG pH POC ABG pO2 Potassium Chloride BUN Creatinine Glucose POC Glucose 171 H 201 H Lactic Acid Calcium Total Bilirubin AST Total Protein Albumin Crossmatch 12/02/17 12/03/17 12/03/17 23:46 05:05 05:05 WBC 11.8 H RBC 3.01 L Hgb 9.0 L Hct 26.6 L MCHC RDW 16.6 H Lymph % (Auto) 1.9 L [place] % (Auto) 9.2 H Lymph # 0.2 L [place] # 1.1 H Seg Neutrophils % 88.9 H Seg Neutrophils # 10.5 H PT 19.7 H INR 1.57 H APTT Heparin Anti-Xa Level POC ABG pH POC ABG pO2 Potassium Chloride BUN Creatinine Glucose POC Glucose 171 H Lactic Acid Calcium Total Bilirubin AST Total Protein Albumin Crossmatch 12/03/17 12/03/17 12/03/17 10:12 14:25 18:33 WBC RBC Hgb Hct MCHC RDW Lymph % (Auto) [place] % (Auto) Lymph # [place] # Seg Neutrophils % Seg Neutrophils # PT INR APTT Heparin Anti-Xa Level POC ABG pH POC ABG pO2 Potassium Chloride BUN Creatinine Glucose POC Glucose 140 H 117 H 107 H Lactic Acid Calcium Total Bilirubin AST Total Protein Albumin Crossmatch 12/03/17 12/04/17 12/04/17 21:52 02:06 05:00 WBC RBC 2.87 L Hgb 8.6 L Hct 25.6 L MCHC RDW 17.3 H Lymph % (Auto) [place] % (Auto) Lymph # [place] # Seg Neutrophils % Seg Neutrophils # PT INR APTT Heparin Anti-Xa Level POC ABG pH POC ABG pO2 Potassium Chloride BUN Creatinine Glucose POC Glucose 107 H 116 H Lactic Acid Calcium Total Bilirubin AST Total Protein Albumin Crossmatch 12/04/17 12/04/17 12/04/17 05:00 10:23 15:45 WBC RBC Hgb 8.8 L Hct 26.8 L MCHC RDW Lymph % (Auto) [place] % (Auto) Lymph # [place] # Seg Neutrophils % Seg Neutrophils # PT INR APTT Heparin Anti-Xa Level POC ABG pH POC ABG pO2 Potassium Chloride 109.1 H BUN 21 H Creatinine Glucose 159 H POC Glucose 112 H Lactic Acid Calcium 8.2 L Total Bilirubin AST Total Protein Albumin Crossmatch 12/05/17 12/05/17 12/06/17 04:02 04:02 06:36 WBC RBC 3.06 L 3.08 L Hgb 8.9 L 9.0 L Hct 27.8 L 28.0 L MCHC RDW 17.4 H 17.3 H Lymph % (Auto) 7.5 L [place] % (Auto) 15.9 H Lymph # 0.7 L [place] # 1.6 H Seg Neutrophils % 76.2 H Seg Neutrophils # PT INR APTT Heparin Anti-Xa Level POC ABG pH POC ABG pO2 Potassium 3.3 L Chloride 110.9 H BUN Creatinine 0.7 L Glucose POC Glucose Lactic Acid Calcium Total Bilirubin AST Total Protein Albumin Crossmatch 12/06/17 06:38 WBC RBC Hgb Hct MCHC RDW Lymph % (Auto) [place] % (Auto) Lymph # [place] # Seg Neutrophils % Seg Neutrophils # PT INR APTT Heparin Anti-Xa Level POC ABG pH POC ABG pO2 Potassium Chloride BUN Creatinine Glucose POC Glucose 69 L Lactic Acid Calcium Total Bilirubin AST Total Protein Albumin Crossmatch
[2017-12-07] MEDS: DUONEB *Not for PRN Use IH SCH ×3 (08:15→22:19)
--- NOTE | 2017-12-07 08:56 | Progress Note ---
Assessment and Plan Assessment and plan: --Acute metabolic encephalopathy; resolved Patient more alert and awake and responding appropriately --Acute hypoxic respiratory failure requiring intubation status post extubation Continue oxygen, nebulizers, supportive care, pulmonary following --Acute blood loss anemia; requiring total 4 units of PRBC transfusion Closely monitor his H&H and transfuse additional as needed --Acute GI bleeding; secondary to AVM, no new episodes of bleeding --Severe protein calorie malnutrition; Nutrition supplements and supportive care --Dysphagia ; speech and swallow evaluated the patient, recommend pured diet --History of PE; anticoagulation on hold, In view of GI bleeding and severe anemia, --DVT prophylaxis; SCDs --General debility /severe weakness ;Physical therapy occupational therapy --DC planning. Case management --Full CODE STATUS Disposition ;Follow PT OT evaluation and recommendations Possible discharge in 1-2 days with home health, home PT History Interval history: Patient seen and examined medical records reviewed Patient feels slightly better no new complaints Complaints of generalized weakness, unable to ambulate without support PT OT evaluating the patient Alert awake responding appropriately Vital signs reviewed Hospitalist Physical - Constitutional Vitals: Temp Pulse Resp BP Pulse Ox 98.6 F 103 H 20 105/75 98 12/07/17 07:37 12/07/17 08:39 12/07/17 08:39 12/07/17 07:37 12/07/17 08:41 General appearance: Present: no acute distress, well-nourished, other (responds appropriately) - EENT Eyes: Present: PERRL, EOM intact - Neck Neck: Present: supple, normal ROM - Respiratory Respiratory effort: normal Respiratory: negative: rales, rhonchi, wheezing - Cardiovascular Rhythm: regular Heart Sounds: Present: S1 & S2 - Extremities Extremities: no ischemia, No edema - Abdominal General gastrointestinal: soft, non-tender, non-distended, normal bowel sounds - Integumentary Integumentary: Present: clear, warm - Psychiatric Psychiatric: appropriate mood/affect, cooperative - Neurologic Neurologic: CNII-XII intact, moves all extremities Results - Labs CBC & Chem 7: 12/06/17 06:36 12/05/17 04:02 Labs: Laboratory Last Values WBC 9.9 K/mm3 (4.5-11.0) 12/06/17 06:36 RBC 3.08 M/mm3 (3.65-5.03) L 12/06/17 06:36 Hgb 9.0 gm/dl (11.8-15.2) L 12/06/17 06:36 Hct 28.0 % (35.5-45.6) L 12/06/17 06:36 MCV 91 fl (84-94) 12/06/17 06:36 MCH 29 pg (28-32) 12/06/17 06:36 MCHC 32 % (32-34) 12/06/17 06:36 RDW 17.3 % (13.2-15.2) H 12/06/17 06:36 Plt Count 238 K/mm3 (140-440) 12/06/17 06:36 Lymph % (Auto) 7.5 % (13.4-35.0) L 12/06/17 06:36 [place] % (Auto) 15.9 % (0.0-7.3) H 12/06/17 06:36 Eos % (Auto) 0.3 % (0.0-4.3) 12/06/17 06:36 Baso % (Auto) 0.1 % (0.0-1.8) 12/06/17 06:36 Lymph # 0.7 K/mm3 (1.2-5.4) L 12/06/17 06:36 [place] # 1.6 K/mm3 (0.0-0.8) H 12/06/17 06:36 Eos # 0.0 K/mm3 (0.0-0.4) 12/06/17 06:36 Baso # 0.0 K/mm3 (0.0-0.1) 12/06/17 06:36 Seg Neutrophils % 76.2 % (40.0-70.0) H 12/06/17 06:36 Seg Neutrophils # 7.6 K/mm3 (1.8-7.7) 12/06/17 06:36 PT 19.7 Sec. (12.2-14.9) H 12/03/17 05:05 INR 1.57 (0.87-1.13) H 12/03/17 05:05 APTT 38.3 Sec. (24.2-36.6) H 12/01/17 Unknown Heparin Anti-Xa Level > 2.00 U.I./ml (0.3-0.7) H 12/01/17 09:14 POC ABG pH 7.364 (7.35-7.45) 12/03/17 04:59 POC ABG pCO2 39.7 (35-45) 12/03/17 04:59 POC ABG pO2 90 (80-105) 12/03/17 04:59 POC ABG HCO3 22.6 12/03/17 04:59 POC ABG Total CO2 24 12/03/17 04:59 POC ABG O2 Sat 97 12/03/17 04:59 POC ABG Base Excess -3 12/03/17 04:59 VBG pH 7.371 (7.320-7.420) 12/01/17 07:59 FiO2 30 % 12/03/17 04:59 Sodium 144 mmol/L (137-145) 12/05/17 04:02 Potassium 3.3 mmol/L (3.6-5.0) L 12/05/17 04:02 Chloride 110.9 mmol/L (98-107) H 12/05/17 04:02 Carbon Dioxide 23 mmol/L (22-30) 12/05/17 04:02 Anion Gap 13 mmol/L 12/05/17 04:02 BUN 14 mg/dL (9-20) 12/05/17 04:02 Creatinine 0.7 mg/dL (0.8-1.5) L 12/05/17 04:02 Estimated GFR > 60 ml/min 12/05/17 04:02 BUN/Creatinine Ratio 20 % 12/05/17 04:02 Glucose 88 mg/dL (75-100) 12/05/17 04:02 POC Glucose 103 (70-105) 12/06/17 22:33 Lactic Acid 4.80 mmol/L (0.7-2.0) H* 12/01/17 10:09 Calcium 8.4 mg/dL (8.4-10.2) 12/05/17 04:02 Magnesium 2.00 mg/dL (1.7-2.3) 12/06/17 06:36 Total Bilirubin 4.60 mg/dL (0.1-1.2) H 12/02/17 09:30 AST 87 units/L (5-40) H 12/02/17 09:30 ALT 42 units/L (7-56) 12/02/17 09:30 Alkaline Phosphatase 96 units/L (35-129) 12/02/17 09:30 Total Creatine Kinase 98 units/L (55-170) 12/01/17 07:59 Total Protein 5.2 g/dL (6.3-8.2) L 12/02/17 09:30 Albumin 2.5 g/dL (3.9-5) L 12/02/17 09:30 Albumin/Globulin Ratio 0.9 % 12/02/17 09:30 Urine Color Yellow (Yellow) 12/01/17 Unknown Urine Turbidity Clear (Clear) 12/01/17 Unknown Urine pH 5.0 (5.0-7.0) 12/01/17 Unknown Ur Specific [place] 1.013 (1.003-1.030) 12/01/17 Unknown Urine Protein 100 mg/dl mg/dL (Negative) 12/01/17 Unknown Urine Glucose (UA) Neg mg/dL (Negative) 12/01/17 Unknown Urine Ketones Neg mg/dL (Negative) 12/01/17 Unknown Urine Blood Neg (Negative) 12/01/17 Unknown Urine Nitrite Neg (Negative) 12/01/17 Unknown Urine Bilirubin Neg (Negative) 12/01/17 Unknown Urine Urobilinogen 4.0 mg/dL (<2.0) 12/01/17 Unknown Ur Leukocyte Esterase Neg (Negative) 12/01/17 Unknown Urine WBC (Auto) 4.0 /HPF (0.0-6.0) 12/01/17 Unknown Urine RBC (Auto) 1.0 /HPF (0.0-6.0) 12/01/17 Unknown Hyaline Casts 1 /LPF 12/01/17 Unknown Urine Mucus Few /HPF 12/01/17 Unknown Blood Type B POSITIVE 12/01/17 08:22 Antibody Screen Negative 12/01/17 08:22 Crossmatch See Detail 12/01/17 08:22
[2017-12-07] MEDS: FEOSOL PO SCH ×3 (09:46→22:52)
[2017-12-07] MEDS: PROTONIX IV SCH (11:22)
[2017-12-07] MEDS: SODIUM CHLORIDE FLUSH SYRINGE 10 ML IV SCH ×2 (11:23→22:53)
[2017-12-07] MEDS: LASIX IV SCH (11:23)
[2017-12-07] MEDS: PROTONIX PO SCH (22:53)
[2017-12-08 05:47] LABS: BUN/Creatinine Ratio 16; Blood Urea Nitrogen 13 mg/dL (9-20); Calcium 8.5 mg/dL (8.4-10.2); Hemolysis Index 0
[2017-12-08] MEDS: DUONEB *Not for PRN Use IH SCH ×3 (07:09→18:47)
[2017-12-08] MEDS: FEOSOL PO SCH ×3 (09:22→23:45)
[2017-12-08] MEDS: PROTONIX PO SCH ×2 (09:50→23:45)
[2017-12-08] MEDS: SODIUM CHLORIDE FLUSH SYRINGE 10 ML IV SCH ×2 (09:51→23:53)
[2017-12-08] MEDS: LASIX IV SCH (10:40)
--- NOTE | 2017-12-08 11:56 | Progress Note ---
Assessment and Plan Assessment and plan: --Acute metabolic encephalopathy; resolved Patient more alert and awake and responding appropriately --Acute hypoxic respiratory failure requiring intubation status post extubation Continue oxygen, nebulizers, supportive care, pulmonary following --Acute blood loss anemia; requiring total 4 units of PRBC transfusion Closely monitor his H&H and transfuse additional as needed --Acute GI bleeding; secondary to AVM, no new episodes of bleeding --Severe protein calorie malnutrition; Nutrition supplements and supportive care --Dysphagia ; speech and swallow evaluated the patient, recommend pured diet --History of PE; anticoagulation on hold, In view of GI bleeding and severe anemia, --DVT prophylaxis; SCDs --General debility /severe weakness ;Physical therapy occupational therapy --DC planning. Case management --Full CODE STATUS Disposition ;Follow PT OT evaluation and recommendations Possible discharge in 1-2 days with home health, home PT History Interval history: No new issues overnight. Hospitalist Physical - Constitutional Vitals: Temp Pulse Resp BP Pulse Ox 97.9 F 106 H 20 96/71 100 12/08/17 10:29 12/08/17 10:29 12/08/17 10:29 12/08/17 10:29 12/08/17 10:29 General appearance: Present: no acute distress, well-nourished, other (responds appropriately) - EENT Eyes: Present: PERRL, EOM intact ENT: hearing intact, clear oral mucosa, dentition normal - Neck Neck: Present: supple, normal ROM - Respiratory Respiratory effort: normal Respiratory: bilateral: CTA - Cardiovascular Rhythm: regular Heart Sounds: Present: S1 & S2. Absent: gallop, rub - Extremities Extremities: no ischemia, No edema, Full ROM - Abdominal General gastrointestinal: soft, non-tender, non-distended, normal bowel sounds - Integumentary Integumentary: Present: clear, warm, dry - Neurologic Neurologic: CNII-XII intact, moves all extremities Results - Labs CBC & Chem 7: 12/06/17 06:36 12/08/17 05:04 Labs: Laboratory Last Values WBC 9.9 K/mm3 (4.5-11.0) 12/06/17 06:36 RBC 3.08 M/mm3 (3.65-5.03) L 12/06/17 06:36 Hgb 9.0 gm/dl (11.8-15.2) L 12/06/17 06:36 Hct 28.0 % (35.5-45.6) L 12/06/17 06:36 MCV 91 fl (84-94) 12/06/17 06:36 MCH 29 pg (28-32) 12/06/17 06:36 MCHC 32 % (32-34) 12/06/17 06:36 RDW 17.3 % (13.2-15.2) H 12/06/17 06:36 Plt Count 238 K/mm3 (140-440) 12/06/17 06:36 Lymph % (Auto) 7.5 % (13.4-35.0) L 12/06/17 06:36 Holt % (Auto) 15.9 % (0.0-7.3) H 12/06/17 06:36 Eos % (Auto) 0.3 % (0.0-4.3) 12/06/17 06:36 Baso % (Auto) 0.1 % (0.0-1.8) 12/06/17 06:36 Lymph # 0.7 K/mm3 (1.2-5.4) L 12/06/17 06:36 Holt # 1.6 K/mm3 (0.0-0.8) H 12/06/17 06:36 Eos # 0.0 K/mm3 (0.0-0.4) 12/06/17 06:36 Baso # 0.0 K/mm3 (0.0-0.1) 12/06/17 06:36 Seg Neutrophils % 76.2 % (40.0-70.0) H 12/06/17 06:36 Seg Neutrophils # 7.6 K/mm3 (1.8-7.7) 12/06/17 06:36 PT 19.7 Sec. (12.2-14.9) H 12/03/17 05:05 INR 1.57 (0.87-1.13) H 12/03/17 05:05 APTT 38.3 Sec. (24.2-36.6) H 12/01/17 Unknown Heparin Anti-Xa Level > 2.00 U.I./ml (0.3-0.7) H 12/01/17 09:14 POC ABG pH 7.364 (7.35-7.45) 12/03/17 04:59 POC ABG pCO2 39.7 (35-45) 12/03/17 04:59 POC ABG pO2 90 (80-105) 12/03/17 04:59 POC ABG HCO3 22.6 12/03/17 04:59 POC ABG Total CO2 24 12/03/17 04:59 POC ABG O2 Sat 97 12/03/17 04:59 POC ABG Base Excess -3 12/03/17 04:59 VBG pH 7.371 (7.320-7.420) 12/01/17 07:59 FiO2 30 % 12/03/17 04:59 Sodium 138 mmol/L (137-145) 12/08/17 05:04 Potassium 3.4 mmol/L (3.6-5.0) L 12/08/17 05:04 Chloride 101.2 mmol/L (98-107) 12/08/17 05:04 Carbon Dioxide 23 mmol/L (22-30) 12/08/17 05:04 Anion Gap 17 mmol/L 12/08/17 05:04 BUN 13 mg/dL (9-20) 12/08/17 05:04 Creatinine 0.8 mg/dL (0.8-1.5) 12/08/17 05:04 Estimated GFR > 60 ml/min 12/08/17 05:04 BUN/Creatinine Ratio 16 % 12/08/17 05:04 Glucose 96 mg/dL (75-100) 12/08/17 05:04 POC Glucose 90 (70-105) 12/08/17 08:06 Lactic Acid 4.80 mmol/L (0.7-2.0) H* 12/01/17 10:09 Calcium 8.5 mg/dL (8.4-10.2) 12/08/17 05:04 Magnesium 2.00 mg/dL (1.7-2.3) 12/06/17 06:36 Total Bilirubin 4.60 mg/dL (0.1-1.2) H 12/02/17 09:30 AST 87 units/L (5-40) H 12/02/17 09:30 ALT 42 units/L (7-56) 12/02/17 09:30 Alkaline Phosphatase 96 units/L (35-129) 12/02/17 09:30 Total Creatine Kinase 98 units/L (55-170) 12/01/17 07:59 Total Protein 5.2 g/dL (6.3-8.2) L 12/02/17 09:30 Albumin 2.5 g/dL (3.9-5) L 12/02/17 09:30 Albumin/Globulin Ratio 0.9 % 12/02/17 09:30 Urine Color Yellow (Yellow) 12/01/17 Unknown Urine Turbidity Clear (Clear) 12/01/17 Unknown Urine pH 5.0 (5.0-7.0) 12/01/17 Unknown Ur Specific Carson 1.013 (1.003-1.030) 12/01/17 Unknown Urine Protein 100 mg/dl mg/dL (Negative) 12/01/17 Unknown Urine Glucose (UA) Neg mg/dL (Negative) 12/01/17 Unknown Urine Ketones Neg mg/dL (Negative) 12/01/17 Unknown Urine Blood Neg (Negative) 12/01/17 Unknown Urine Nitrite Neg (Negative) 12/01/17 Unknown Urine Bilirubin Neg (Negative) 12/01/17 Unknown Urine Urobilinogen 4.0 mg/dL (<2.0) 12/01/17 Unknown Ur Leukocyte Esterase Neg (Negative) 12/01/17 Unknown Urine WBC (Auto) 4.0 /HPF (0.0-6.0) 12/01/17 Unknown Urine RBC (Auto) 1.0 /HPF (0.0-6.0) 12/01/17 Unknown Hyaline Casts 1 /LPF 12/01/17 Unknown Urine Mucus Few /HPF 12/01/17 Unknown Blood Type B POSITIVE 12/01/17 08:22 Antibody Screen Negative 12/01/17 08:22 Crossmatch See Detail 12/01/17 08:22
[2017-12-09] MEDS: DUONEB *Not for PRN Use IH SCH ×3 (02:21→14:59)
--- NOTE | 2017-12-09 08:58 | Discharge Summary ---
Providers - Providers Date of Admission: 12/01/17 10:47 Date of discharge: 12/09/17 Attending physician: SOFIA MENARD 12/01/17 08:13 Consult to Physician [CONS] Urgent Comment: Consulting Provider: MELECIO ESPINOSA Physician Instructions: Reason For Exam: gi bleed 12/01/17 10:50 Consult to Dietitian/Nutrition [CONS] Routine Physician Instructions: Reason For Exam: Reason for Consult: Malnutrition 12/01/17 10:53 Consult to Case Management [CONS] Routine Services Needed at Discharge: Other Notified:: Lola Phone number called:: in person Was contact made?: Yes If yes, spoke with:: Lola Time called:: 08:35 12/04/17 11:05 Speech Therapy Evaluation and Treat [CONS] Routine Reason For Exam: Dysphagia 12/05/17 17:34 Physical Therapy Evaluation and Treat [CONS] Routine Comment: Reason For Exam: Gen. debility Primary care physician: [employer] Hospitalization Reason for admission: gi bleed Condition: Critical Hospital course: Mr Cleveland is a 67 y/o male with h/o PE on chronic systemic anticoagulation and h/ o Adrenal insufficiency, who recently discharged home last month, managed at that time for severe anemia, BRIANA etc , presented via EMS with c/o several days of generalized weakness, SOB, poor appetite and dark stools. Patient was unable to provide any form of information during the encounter due being intubated for deterioration in his condition. in the ED the patient was noted to be Severely anemic with H of 6.5, severely lethargic, altered mental status, severely hypotensive. BP was in the 70's Systolic. He was quite hypoxic. Pt was subsequently intubated for deterioration in his condition. Central line was also placed by the ED physician. He recieved multiple boluses of NS. Stat He was briefly on pressor support and reversal of anticogulation. The patient eventually had endoscopy with AVM noted. He was transfused 4 units PRBC and monitored in the ICU after exubation prior to transfer to the floor. PT comnsulted and recommended HHPT. GI recommended restarting anticoagulation if no further bleeding. Speech reports delayed cough and recommends MBS. Dedicated d/c time 32min Disposition: DC/TX-06 HOME UNDER HOME [facility] Core Measure Documentation - Palliative Care Palliative Care/ Comfort Measures: Not Applicable - Core Measures Any of the following diagnoses?: none Exam - Constitutional Vitals: Temp Pulse Resp BP Pulse Ox 98.3 F 82 18 105/64 109 H 12/09/17 02:11 12/09/17 02:21 12/09/17 02:21 12/09/17 02:11 12/09/17 02:11 General appearance: Present: no acute distress, well-nourished - EENT Eyes: Present: PERRL ENT: hearing intact, clear oral mucosa - Neck Neck: Present: supple, normal ROM - Respiratory Respiratory effort: normal Respiratory: bilateral: CTA - Cardiovascular Heart Sounds: Present: S1 & S2. Absent: rub, click - Extremities Extremities: pulses symmetrical, No edema Peripheral Pulses: within normal limits - Abdominal General gastrointestinal: Present: soft, non-tender, non-distended, normal bowel sounds Male genitourinary: Present: normal - Integumentary Integumentary: Present: clear, warm, dry - Musculoskeletal Musculoskeletal: gait normal, strength equal bilaterally - Psychiatric Psychiatric: appropriate mood/affect, intact judgment & insight - Neurologic Neurologic: CNII-XII intact, moves all extremities Plan Activity: advance as tolerated Weight Bearing Status: Weight Bear as Tolerated Follow up with: PRIMARY CARE, [Primary Care Provider] - 3-5 Days Prescriptions: Ferrous Sulfate [Feosol 325 MG tab] 325 mg PO TID #90 tablet Metoprolol [Lopressor TAB] 50 mg PO TID #90 tablet Pantoprazole [Protonix TAB] 40 mg PO BID #60 tablet Rivaroxaban [Xarelto] 10 mg PO QDAY #30 tab
[2017-12-09] MEDS: PROTONIX PO SCH (09:56)
[2017-12-09] MEDS: FEOSOL PO SCH (09:56)
[2017-12-09] MEDS: LASIX IV SCH (09:56)
[2017-12-09] MEDS: SODIUM CHLORIDE FLUSH SYRINGE 10 ML IV SCH (10:01)
--- NOTE | 2017-12-09 11:47 | Fluoroscopy Report ---
MODIFIED BARIUM SWALLOW History: dysphagia, coughing. Findings: Video radiography was provided by the radiologist for speech therapy to assess the swallowing mechanism. 1 fluoroscopic image was captured. Impression: Successful modified barium swallow.
[2017-12-09 17:27] VITALS: BP 106/79
== END 2017-12-09 14:32 | disposition home or self-care (01) | DRG 871 ==
LOC: ED 07:23 → CC1 10:47 → 4A 12-04 16:38 → 2B-ACE 12-07 13:32
PROVIDERS: ADMIT Family Medicine; ATTEND Hospitalist
PROC: 30233N1 Transfusion of Nonautologous Red Blood Cells into Peripheral Vein, Percutaneous Approach (ICD-10-PCS; 2017-12-01)
PROC: 0BH17EZ Insertion of Endotracheal Airway into Trachea, Via Natural or Artificial Opening (ICD-10-PCS; 2017-12-01)
PROC: 02HV33Z Insertion of Infusion Device into Superior Vena Cava, Percutaneous Approach (ICD-10-PCS; 2017-12-01)
PROC: 30233L1 Transfusion of Nonautologous Fresh Plasma into Peripheral Vein, Percutaneous Approach (ICD-10-PCS; 2017-12-02)
PROC: 30233K1 Transfusion of Nonautologous Frozen Plasma into Peripheral Vein, Percutaneous Approach (ICD-10-PCS; 2017-12-02)
PROC: 5A1935Z Respiratory Ventilation, Less than 24 Consecutive Hours (ICD-10-PCS; 2017-12-02)
PROC: 4A033R1 Measurement of Arterial Saturation, Peripheral, Percutaneous Approach (ICD-10-PCS; principal; 2017-12-03)
PROC: 0W3P8ZZ Control Bleeding in Gastrointestinal Tract, Via Natural or Artificial Opening Endoscopic (ICD-10-PCS; 2017-12-03)
DX: A41.9 Sepsis, unspecified organism (principal); K55.21 Angiodysplasia of colon with hemorrhage; J96.01 Acute respiratory failure with hypoxia; R65.21 Severe sepsis with septic shock; G92 Toxic encephalopathy; E43 Unspecified severe protein-calorie malnutrition; D62 Acute posthemorrhagic anemia; E27.40 Unspecified adrenocortical insufficiency; D68.32 Hemorrhagic disorder due to extrinsic circulating anticoagulants; J44.9 Chronic obstructive pulmonary disease, unspecified; K21.9 Gastro-esophageal reflux disease without esophagitis; F17.200 Nicotine dependence, unspecified, uncomplicated; R62.7 Adult failure to thrive; T45.515A Adverse effect of anticoagulants, initial encounter; I10 Essential (primary) hypertension; Z86.711 Personal history of pulmonary embolism; Z95.2 Presence of prosthetic heart valve; Z82.49 Family history of ischemic heart disease and other diseases of the circulatory system; Y92.89 Other specified places as the place of occurrence of the external cause; Z68.23 Body mass index [BMI] 23.0-23.9, adult
CPT/HCPCS: 31720; 36415; 36430; 36600; 70450; 71045; 74018; 74176; 74230; 80048; 80053; 81001; 82140; 82271; 82550; 82803; 82805; 82962; 83735; 85014; 85018; 85025; 85027; 85520; 85610; 85730; 86850; 86900; 86901; 86920; 87040; 87070; 87086; 87205; 93005; 93010; 94002; 94003; 94640; 94760; 99292; A6250; C9113; J1100; J1630; J1720; J1940; J2060; J2250; J2370; J2543; J2704; J3010; J3370; J7030; J7040; J7050; J7195; P9016; P9017

== ENCOUNTER 2017-12-23 19:38 | Inpatient (IN) | payer SELFPAY ==
[2017-12-23 20:18] LABS: Basophils # (Auto) 0.1 K/mm3 (0.0-0.1); Basophils % (Auto) 0.9 % (0.0-1.8); Eosinophils # (Auto) 0.1 K/mm3 (0.0-0.4); Hematocrit 21.1 % (35.5-45.6); Hemoglobin 6.6 gm/dl (11.8-15.2); Lymphocytes # (Auto) 0.9 K/mm3 (1.2-5.4); Mean Corpuscular HGB Conc 31 % (32-34); Mean Corpuscular Hemoglobin 27 pg (28-32); Mean Corpuscular Volume 87 fl (84-94); Monocytes # (Auto) 0.9 K/mm3 (0.0-0.8); Monocytes % (Auto) 10.5 % (0.0-7.3); Platelet Count 375 K/mm3 (140-440); Red Blood Count 2.43 M/mm3 (3.65-5.03); Red Cell Distribution Width 18.6 % (13.2-15.2)
[2017-12-23 20:30] LABS: BUN/Creatinine Ratio 27; Blood Urea Nitrogen 32 mg/dL (9-20); Calcium 8.4 mg/dL (8.4-10.2); Hemolysis Index 1
[2017-12-23] MEDS ORDERED: PROTONIX IV ONE (20:34)
[2017-12-23] MEDS ORDERED: NACL 0.9% 0 ML IR ONE (20:59)
[2017-12-23] MEDS ORDERED: NACL 0.9% 1000 ML 1,000 ML ONE (21:02)
--- NOTE | 2017-12-23 21:17 | XRay Report ---
FINAL REPORT EXAM: XR CHEST 1V AP HISTORY: GOPI TECHNIQUE: Chest single AP PRIORS: Comparison is dated December 05, 2017 FINDINGS: Moderate left effusion noted increased from prior exam. There is a small right effusion. Cardiac valve prosthesis noted. Sternotomy wires are present. Pulmonary vasculature is within normal limits. No confluent infiltrates are identified. Cardiac and mediastinal contours are unchanged. IMPRESSION: Increasing bilateral pleural effusions greater on the left
--- NOTE | 2017-12-23 21:23 | Emergency Department Report ---
ED General Adult HPI - General Chief complaint: Dyspnea/Respdistress Stated complaint: SHORTNESS OF BREATH Time Seen by Provider: 12/23/17 20:26 Source: patient, EMS Mode of arrival: Stretcher Limitations: No Limitations - History of Present Illness Initial comments: Patient is complaining of shortness of breath and mild substernal chest pain. He says that has been going on for a while, but is not sure exactly how long it has lasted for. He has been intermittently compliant with his home medications. EMS gave him 5 mg albuterol, which helped his symptoms little bit. [facility] but does not know why. - Related Data Previous Rx's Medication Instructions Recorded Last Taken Type Nicotine [Habitrol] 7 mg TD QDAY #30 patch 11/09/17 Unknown Rx Sennosides/Docusate [Senokot S] 2 tab PO QHS PRN #60 tablet 11/09/17 Unknown Rx Ferrous Sulfate [Feosol 325 MG tab] 325 mg PO TID #90 tablet 12/09/17 Unknown Rx Metoprolol [Lopressor TAB] 50 mg PO TID #90 tablet 12/09/17 Unknown Rx Pantoprazole [Protonix TAB] 40 mg PO BID #60 tablet 12/09/17 Unknown Rx Rivaroxaban [Xarelto] 10 mg PO QDAY #30 tab 12/09/17 Unknown Rx Allergies Allergy/AdvReac Type Severity Reaction Status Date / Time No Known Allergies Allergy Verified 01/23/14 23:59 ED Review of Systems ROS: Stated complaint: SHORTNESS OF BREATH Other details as noted in HPI Comment: All other systems reviewed and negative Constitutional: malaise, weakness Respiratory: cough, shortness of breath Cardiovascular: chest pain Gastrointestinal: nausea, melena ED Past Medical Hx - Past Medical History Previous Medical History?: Yes Hx Hypertension: Yes Hx Congestive Heart Failure: Yes Hx Renal Disease: Yes (acute renal insufficiency) Hx COPD: Yes Additional medical history: MITRAL VALVE STENOSIS, CHF, GERD, HCV - Surgical History Past Surgical History?: Yes Additional Surgical History: valve replacement - Social History Smoking Status: Current Every Day Smoker Substance Use Type: Alcohol, Prescribed - Medications Home Medications: Home Medications Medication Instructions Recorded Confirmed Last Taken Type Nicotine [Habitrol] 7 mg TD QDAY #30 patch 11/09/17 12/07/17 Unknown Rx Sennosides/Docusate [Senokot S] 2 tab PO QHS PRN #60 tablet 11/09/17 12/07/17 Unknown Rx Ferrous Sulfate [Feosol 325 MG tab] 325 mg PO TID #90 tablet 12/09/17 Unknown Rx Metoprolol [Lopressor TAB] 50 mg PO TID #90 tablet 12/09/17 Unknown Rx Pantoprazole [Protonix TAB] 40 mg PO BID #60 tablet 12/09/17 Unknown Rx Rivaroxaban [Xarelto] 10 mg PO QDAY #30 tab 12/09/17 Unknown Rx ED Physical Exam - General Limitations: No Limitations General appearance: alert, in no apparent distress - Head Head exam: Present: atraumatic, normocephalic - Eye Eye exam: Present: normal appearance - ENT ENT exam: Present: mucous membranes moist - Neck Neck exam: Present: normal inspection - Respiratory Respiratory exam: Present: normal lung sounds bilaterally. Absent: respiratory distress - Cardiovascular Cardiovascular Exam: Present: regular rate, normal rhythm, JVD. Absent: systolic murmur, diastolic murmur, rubs, gallop - GI/Abdominal GI/Abdominal exam: Present: soft, normal bowel sounds. Absent: distended, tenderness, guarding, rebound - Rectal Rectal exam: Present: deferred, heme (+) stool, black stool, hemorrhoids - Extremities Exam Extremities exam: Present: normal inspection, pedal edema - Back Exam Back exam: Present: normal inspection - Neurological Exam Neurological exam: Present: alert, oriented X3 - Psychiatric Psychiatric exam: Present: normal affect, normal mood - Skin Skin exam: Present: warm, dry, intact, normal color. Absent: rash ED Course Vital Signs 12/23/17 12/23/17 12/23/17 19:38 19:49 19:57 Temperature Pulse Rate 106 H Pulse Rate [ Intra-Procedure ] Respiratory 32 H 19 Rate Respiratory Rate [Intra- Procedure] Blood Pressure Blood Pressure [Intra- Procedure] O2 Sat by Pulse 94 98 Oximetry O2 Sat by Pulse Oximetry [ Intra-Procedure ] 12/23/17 12/23/17 12/23/17 20:00 20:02 20:16 Temperature 97.9 F Pulse Rate 106 H 103 H Pulse Rate [ Intra-Procedure ] Respiratory 31 H 24 Rate Respiratory Rate [Intra- Procedure] Blood Pressure 85/63 80/54 Blood Pressure [Intra- Procedure] O2 Sat by Pulse 99 97 Oximetry O2 Sat by Pulse Oximetry [ Intra-Procedure ] 12/23/17 12/23/17 12/23/17 20:30 20:46 21:12 Temperature 97.9 F Pulse Rate 101 H 106 H 102 H Pulse Rate [ Intra-Procedure ] Respiratory 27 H 28 H 24 Rate Respiratory Rate [Intra- Procedure] Blood Pressure 84/55 84/55 80/56 Blood Pressure [Intra- Procedure] O2 Sat by Pulse 94 Oximetry O2 Sat by Pulse Oximetry [ Intra-Procedure ] 12/23/17 12/23/17 12/23/17 21:27 21:30 21:57 Temperature 97.9 F 97.5 F L Pulse Rate 104 H 104 H 104 H Pulse Rate [ Intra-Procedure ] Respiratory 26 H 24 Rate Respiratory Rate [Intra- Procedure] Blood Pressure 74/49 83/52 86/58 Blood Pressure [Intra- Procedure] O2 Sat by Pulse 96 96 Oximetry O2 Sat by Pulse Oximetry [ Intra-Procedure ] 12/23/17 12/23/17 12/23/17 22:00 22:27 22:30 Temperature 97.6 F Pulse Rate 99 H 96 H 95 H Pulse Rate [ Intra-Procedure ] Respiratory 25 H 22 27 H Rate Respiratory Rate [Intra- Procedure] Blood Pressure 85/61 88/60 91/59 Blood Pressure [Intra- Procedure] O2 Sat by Pulse 94 Oximetry O2 Sat by Pulse Oximetry [ Intra-Procedure ] 12/23/17 12/24/17 12/24/17 23:30 00:30 00:40 Temperature Pulse Rate 98 H 98 H Pulse Rate [ Intra-Procedure ] Respiratory 20 29 H Rate Respiratory Rate [Intra- Procedure] Blood Pressure 84/58 86/63 Blood Pressure [Intra- Procedure] O2 Sat by Pulse 95 Oximetry O2 Sat by Pulse Oximetry [ Intra-Procedure ] 12/24/17 12/24/17 12/24/17 00:45 01:15 01:30 Temperature 97.6 F 97.6 F Pulse Rate 93 H 95 H 97 H Pulse Rate [ Intra-Procedure ] Respiratory 24 24 25 H Rate Respiratory Rate [Intra- Procedure] Blood Pressure 94/62 87/62 92/61 Blood Pressure [Intra- Procedure] O2 Sat by Pulse 95 97 Oximetry O2 Sat by Pulse Oximetry [ Intra-Procedure ] 12/24/17 01:59 Temperature Pulse Rate Pulse Rate [ 92 H Intra-Procedure ] Respiratory Rate Respiratory 16 Rate [Intra- Procedure] Blood Pressure Blood Pressure 99/70 [Intra- Procedure] O2 Sat by Pulse Oximetry O2 Sat by Pulse 97 Oximetry [ Intra-Procedure ] - Reevaluation(s) Reevaluation #1: Patient has been given 2 units PRBCs, 2 L IV normal saline, and 1 unit FFP. Central line was placed by myself. See procedure note for details. It has been confirmed on chest x-ray. I have also ordered a right upper quadrant ultrasound to further workup patient's elevated LFTs. When he was in the ER 1 month ago, his LFTs are elevated at that time. CT showed no acute hepatobiliary abnormalities. I cannot find any records were somebody has evaluated this abnormality. Patient will be admitted for further management. 12/24/17 00:49 12/24/17 00:50 12/24/17 02:37 - Central Line Placement Right SC Consent Obtained: written consent Time Out Performed: Yes Patient Placed on Monitor/Pulse Ox: Yes MD Prep: mask, gown, gloves Central Line Prep: Chlorhexidine scrub Local Anesthesia Used: Lidocaine 1% Amount of Anesthesia Used (mls): 4 Ultrasound Used for Placement: Yes Central Line Lumen Inserted: triple Central Line Position: sutured in place with 3-0 Dressing Applied: Tegaderm Post Procedure X-Ray: tip of catheter in good p Patient Tolerated Procedure: well, no complications Complications: none ED Medical Decision Making - Lab Data Result diagrams: 12/23/17 20:00 12/23/17 20:00 - EKG Data -: EKG Interpreted by Me EKG shows normal: sinus rhythm, axis, intervals, QRS complexes, ST-T waves Rate: normal - EKG Data Interpretation: no acute changes - Radiology Data Radiology results: report reviewed, image reviewed - Medical Decision Making 67-year-old male with past medical history of COPD, GI bleed, PE is relatively low, hypertension presents to the ER with vague symptoms. Vital signs significant for hypotension with a blood pressure 80s over 40s. He has normal oxygenation and is in no respiratory distress. Abdominal exam is benign. Physical exam that show evidence of mild fluid overload. He has grossly melanotic stool. He is unable to specify for me when the melena began. He is also unable to tell me whether or not he has been consistently taking his route so or the rest was home medications. 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 Hgb 6.6 in the ER. I am concerned that patient has a recurrent GI bleed, exacerbated potentially by his xarelto. He recommends protonix, transfusion, and careful observation. Due to the fact that patient endorses chest pain with a history of PE and possible noncompliance with his route so, I will order a CT chest to exclude this etiology. - Differential Diagnosis PE, malignancy, anemia, UGIB, copd, pna, dehydration Critical care attestation.: If time is entered above; I have spent that time in minutes in the direct care of this critically ill patient, excluding procedure time. ED Disposition Clinical Impression: Hypokalemia, UGIB (upper gastrointestinal bleed), Elevated LFTs Disposition: OP ADMIT IP TO THIS HOSP Is pt being admited?: Yes Does the pt Need Aspirin: No Condition: Stable Referrals: PRIMARY CARE, [Primary Care Provider] - 3-5 Days
[2017-12-23 21:25] LABS: INR 2.46 (0.87-1.13)
[2017-12-23] MEDS ORDERED: NACL 0.9% 500 ML 500 ML IV ONE ×2 (22:39→23:15)
[2017-12-23 23:03] LABS: Albumin 2.6 g/dL (3.9-5); Bilirubin,Direct 2.8 mg/dL (0-0.2)
[2017-12-24] MEDS ORDERED: NACL 0.9% 1000 ML 1,000 ML IV ONE (00:10)
--- NOTE | 2017-12-24 00:14 | Cat Scan Report ---
FINAL REPORT EXAM: CT ANGIO CHEST HISTORY: chest pain, sob, h/o PE TECHNIQUE: Following IV administration of 100 cc of Omnipaque 350 axial helical imaging was performed through the chest with sagittal and coronal reformatted images and maximum intensity projection images obtained. Comparison: Chest x-ray also performed today and chest x-rays dating back to December 02, 2017. FINDINGS: There is bilateral pulmonary emphysema. There is prominence of the interstitial markings in both lungs. There are large bilateral pleural fluid collection with associated pulmonary consolidation/compressive atelectasis in the left lingula and lower lobes bilaterally. There are patchy areas of pulmonary consolidation in the right middle lobe. The trachea and bronchi are patent. The heart is enlarged with atherosclerotic vascular calcification of the coronary arteries and prosthetic mitral valve. The thoracic aorta is normal caliber. Is unclear whether not small peripheral segmental pulmonary artery filling defects in a right lower lobe segmental branch (images 93 through 97) are secondary to motion artifact or represent small pulmonary artery emboli. The bony structures are notable for previous median sternotomy with sternotomy wires in place. IMPRESSION: 1. Study somewhat degraded by motion artifact. 2. Appearance of small peripheral segmental pulmonary artery filling defects in the right lower lobe may be artifactual secondary to motion or may represent small peripheral segmental pulmonary artery emboli. 3. Pulmonary emphysema 4. Diffuse prominence of the interstitial markings. Whether or not this represents a chronic process or interstitial edema is unclear. 5. Large bilateral pleural fluid collections with associated pulmonary consolidation/compressive atelectasis in the left lingula and lower lobes bilaterally and patchy areas of pulmonary consolidation in the right middle lobe. The pleural effusions are present on the chest x-rays dating back to the chest x-ray of December 02, 2017. 6. Cardiomegaly with prosthetic mitral valve. This study was discussed with Dr. Cantu 12:05 a.m. December 24, 2017.
[2017-12-24] MEDS ORDERED: NACL 0.9% 1000 ML 1,000 ML ONE (00:28)
[2017-12-24] MEDS ORDERED: NACL 0.9% 500 ML 500 ML IV ONE (01:00)
[2017-12-24] MEDS ORDERED: K-DUR PO ONE (01:57)
[2017-12-24] MEDS ORDERED: SODIUM CHLORIDE FLUSH SYRINGE 10 ML IV PRN (02:39)
[2017-12-24] MEDS ORDERED: ZOFRAN IV PRN (02:39)
--- NOTE | 2017-12-24 03:02 | XRay Report ---
FINAL REPORT EXAM: XR CHEST 1V AP HISTORY: central line placement COMPARISON: December 23, 2017 FINDINGS: Frontal view(s) of the chest obtained. Stable mild cardiac enlargement. Prior median sternotomy and cardiac valve repair. Stable moderate left-sided pleural effusion with adjacent consolidation. Increasing right-sided pleural effusion now small to moderate size with hazy opacity right mid to lower lung. No pneumothorax. Placement of right subclavian line with distal tip projecting over the proximal SVC region. IMPRESSION: Placement of right subclavian line with distal tip projecting over the proximal SVC region. Increasing right-sided pleural effusion. Stable moderate left-sided pleural effusion with adjacent consolidation.
--- NOTE | 2017-12-24 03:53 | Cat Scan Report ---
FINAL REPORT EXAM: CT ABDOMEN PELVIS WO CON HISTORY: abd pain COMPARISON: CT of the abdomen pelvis from November 05, 2017. TECHNIQUE: Contiguous axial images were obtained. Additional sagittal and coronal reformatted images were obtained. FINDINGS: Moderate right and small to moderate left-sided pleural effusions. Nonspecific patchy linear airspace opacities at the lung bases. Visualized heart is borderline to mildly enlarged. Prior mitral valve repair. Severe coronary artery calcification. Cholelithiasis. Small to moderate amount of ascites in the abdomen and pelvis. No loculated collection. Prominent body wall edema. Liver is enlarged measuring 24 centimeters. Spleen and pancreas are grossly unremarkable. Retained contrast the renal pelves and ureters likely relating to earlier exam with IV contrast. Urinary bladder is opacified by IV contrast and otherwise unremarkable. No hydronephrosis. Small bilateral renal cysts. Aorta and IVC normal in caliber. Moderate severe calcified plaque along the aorta. No bowel obstruction. Prior surgery involving left colon. Moderate stool within portions of the colon. No dodie bowel obstruction or dodie inflammatory changes the bowel. Evaluation of bowel somewhat limited by lack of IV contrast as well as patient respiratory motion artifact. Appendix is not visualized. Stomach is decompressed. This limits evaluation wall thickening. [id number] degenerative changes of the lumbar spine. Bony pelvis is grossly intact. Partial ankylosis of the SI joints. IMPRESSION: Partial visualization of bilateral pleural effusions. Nonspecific linear densities at the lung bases concerning for mild atelectasis and congestion. Prominent diffuse body wall edema and small to moderate amount of ascites in the abdomen and pelvis. No loculated collection or free air. Cholelithiasis. Presence of ascites somewhat limits evaluation of gallbladder wall thickness. No dodie inflammatory changes the gallbladder on this noncontrast exam. Prior surgery involving the left colon. No bowel obstruction. Moderate stool in the colon. No dodie inflammatory changes of the bowel although evaluation is somewhat limited. Appendix not visualized.
[2017-12-24] MEDS: LEVOPHED DRIP 4 MG/NS 250 ML 4 MG/250 ML BAG IV SCH (04:05)
[2017-12-24 04:10] LABS: Hematocrit 26.3 % (35.5-45.6); Hemoglobin 8.4 gm/dl (11.8-15.2)
[2017-12-24] MEDS ORDERED: ZOSYN/NS 3.375GM/50ML 3.375 GM/50 ML BAG IV SCH (04:52)
--- NOTE | 2017-12-24 04:53 | History and Physical Report ---
History of Present Illness Date of examination: 12/24/17 Date of admission: 12/24/17 03:39 History of present illness: 67-year-old woman with a history of hypertension, CHF, reflux, hepatitis C, AVMs throughout the emergency room for evaluation of melena. The patient is a very poor historian, also complaining of lower abdominal pain and very difficult to elicit the rest of the history. She denies NSAID use. She was just discharged from the hospital on December 09 for GI bleed, she was restarted back on anticoagulation at discharge. Shehas a cough productive of light yellow sputum Review of systems Constitutional: no weight loss, chills, fever Ears, eyes, nose, mouth and throat: no nasal congestion, no nasal discharge, no sinus pressure, no vision change, no red eye. Neck: No neck pain or rigidity. Cardiovascular: no chest pain, palpitations Respiratory: no shortness of breath Gastrointestinal: no hematochezia Genitourinary : no frequency , no hematuria Musculoskeletal: no joint swelling or muscle ache Integumentary: no rash, no pruritis Neurological: no parathesias, no numbness, no focal weakness Endocrine: no cold or heat intolerance, no polyuria or polydipsia Hematologic/Lymphatic: no easy bruising, no easy bleeding, no gland swelling Allergic/Immunologic: no urticaria, no angioedema. PAST MEDICAL HISTORY: hypertension, CHF, reflux, hepatitis C, AVMs PAST SURGICAL HISTORY: Valve replacement SOCIAL HISTORY: Drinks, smoke, refuse to quantify, no drug FAMILY HISTORY: Hypertension Medications and Allergies Allergies Allergy/AdvReac Type Severity Reaction Status Date / Time No Known Allergies Allergy Verified 01/23/14 23:59 Home Medications Medication Instructions Recorded Confirmed Last Taken Type Nicotine [Habitrol] 7 mg TD QDAY #30 patch 11/09/17 12/29/17 Unknown Rx Sennosides/Docusate [Senokot S] 2 tab PO QHS PRN #60 tablet 11/09/17 12/28/17 Unknown Rx Ferrous Sulfate [Feosol 325 MG tab] 325 mg PO TID #90 tablet 12/09/17 12/29/17 Unknown Rx Metoprolol [Lopressor TAB] 50 mg PO TID #90 tablet 12/09/17 12/29/17 Unknown Rx Pantoprazole [Protonix TAB] 40 mg PO BID #60 tablet 12/09/17 12/28/17 Unknown Rx Rivaroxaban [Xarelto] 10 mg PO QDAY #30 tab 12/09/17 12/28/17 Unknown Rx Active Meds: Active Medications Acetaminophen (Tylenol) 650 mg PO Q4H PRN PRN Reason: Pain MILD(1-3)/Fever >100.5/ Norepinephrine (Levophed Drip 4 Mg/Ns 250 Ml) 4 mg in 250 mls @ 7.5 mls/hr IV TITR [facility]; Protocol Last Admin: 12/24/17 04:05 Dose: 2 mcg/min, 7.5 mls/hr Levofloxacin/Dextrose (Levaquin 750mg/150ml) 750 mg in 150 mls @ 100 mls/hr IV Q24H [facility]; Protocol Ondansetron HCl (Zofran) 4 mg IV Q8H PRN PRN Reason: Nausea And Vomiting Pantoprazole Sodium (Protonix) 40 mg IV BID [facility] Sodium Chloride (Sodium Chloride Flush Syringe 10 Ml) 10 ml IV BID [facility] Sodium Chloride (Sodium Chloride Flush Syringe 10 Ml) 10 ml IV PRN PRN PRN Reason: LINE FLUSH Exam - Constitutional Vitals: Temp Pulse Resp BP Pulse Ox 97.6 F 94 H 28 H 99/68 100 12/24/17 01:30 12/24/17 04:30 12/24/17 04:30 12/24/17 04:30 12/24/17 04:30 Results - Labs CBC & Chem 7: 01/06/18 05:43 01/04/18 05:12 Labs: Abnormal lab results 12/23/17 12/23/17 12/23/17 Range/Units 20:00 20:00 20:00 RBC 2.43 L (3.65-5.03) M/mm3 Hgb 6.6 L (11.8-15.2) gm/dl Hct 21.1 L (35.5-45.6) % MCH 27 L (28-32) pg MCHC 31 L (32-34) % RDW 18.6 H (13.2-15.2) % Lymph % (Auto) 11.0 L (13.4-35.0) % [place] % (Auto) 10.5 H (0.0-7.3) % Lymph # 0.9 L (1.2-5.4) K/mm3 [place] # 0.9 H (0.0-0.8) K/mm3 Seg Neutrophils % 76.6 H (40.0-70.0) % PT (12.2-14.9) Sec. INR (0.87-1.13) Sodium 129 L (137-145) mmol/L Potassium 3.3 L (3.6-5.0) mmol/L Chloride 90.9 L (98-107) mmol/L BUN 32 H (9-20) mg/dL Glucose 116 H (75-100) mg/dL Total Bilirubin 3.80 H (0.1-1.2) mg/dL Direct Bilirubin 2.8 H (0-0.2) mg/dL AST 56 H (5-40) units/L NT-Pro-B Natriuret Pep (0-900) pg/mL Total Protein 6.2 L (6.3-8.2) g/dL Albumin 2.6 L (3.9-5) g/dL Crossmatch 12/23/17 12/23/17 12/24/17 Range/Units 20:40 20:56 00:30 RBC (3.65-5.03) M/mm3 Hgb (11.8-15.2) gm/dl Hct (35.5-45.6) % MCH (28-32) pg MCHC (32-34) % RDW (13.2-15.2) % Lymph % (Auto) (13.4-35.0) % [place] % (Auto) (0.0-7.3) % Lymph # (1.2-5.4) K/mm3 [place] # (0.0-0.8) K/mm3 Seg Neutrophils % (40.0-70.0) % PT 28.3 H (12.2-14.9) Sec. INR 2.46 H (0.87-1.13) Sodium (137-145) mmol/L Potassium (3.6-5.0) mmol/L Chloride (98-107) mmol/L BUN (9-20) mg/dL Glucose (75-100) mg/dL Total Bilirubin (0.1-1.2) mg/dL Direct Bilirubin (0-0.2) mg/dL AST (5-40) units/L NT-Pro-B Natriuret Pep 4304 H (0-900) pg/mL Total Protein (6.3-8.2) g/dL Albumin (3.9-5) g/dL Crossmatch See Detail 12/24/17 Range/Units 03:41 RBC (3.65-5.03) M/mm3 Hgb 8.4 L (11.8-15.2) gm/dl Hct 26.3 L (35.5-45.6) % MCH (28-32) pg MCHC (32-34) % RDW (13.2-15.2) % Lymph % (Auto) (13.4-35.0) % [place] % (Auto) (0.0-7.3) % Lymph # (1.2-5.4) K/mm3 [place] # (0.0-0.8) K/mm3 Seg Neutrophils % (40.0-70.0) % PT (12.2-14.9) Sec. INR (0.87-1.13) Sodium (137-145) mmol/L Potassium (3.6-5.0) mmol/L Chloride (98-107) mmol/L BUN (9-20) mg/dL Glucose (75-100) mg/dL Total Bilirubin (0.1-1.2) mg/dL Direct Bilirubin (0-0.2) mg/dL AST (5-40) units/L NT-Pro-B Natriuret Pep (0-900) pg/mL Total Protein (6.3-8.2) g/dL Albumin (3.9-5) g/dL Crossmatch - Imaging and Cardiology EKG: report reviewed Chest x-ray: report reviewed CT scan - chest: report reviewed Assessment and Plan Assessment GI bleed Hypotension secondary to GI bleed Acute blood loss anemia Abdominal pain Pneumonia, community acquired CHF, diastolic dysfunction, stable Hypokalemia Hepatitis C GERD Plan Admit to medicine Start Levophed drip, transfuse red cells slowly Consult GI, check serial hemoglobin Check CAT scan of the abdomen and pelvis Start IV Levaquin, Zosyn, follow cultures Replete potassium, consult critical care Hold anticoagulation, DVT prophylaxis
[2017-12-24] MEDS: LEVAQUIN 750MG/150ML 750 MG/150 ML BAG IV SCH (05:04)
[2017-12-24] MEDS: ZOSYN/NS 4.5GM/100ML 4.5 GM/100 ML VIAL IV SCH ×3 (05:35→21:39)
[2017-12-24 06:14] LABS: Hematocrit 24.5 % (35.5-45.6); Hemoglobin 8.1 gm/dl (11.8-15.2)
--- NOTE | 2017-12-24 09:37 | Gastroenterology Consultation ---
History of Present Illness - Reason for Consult Consult date: 12/24/17 GIB Requesting physician: LOR SYED - History of Present Illness Patient is a 67 y/o male with PMH of COPD, GERD, HTN, PE, hepatitis C, mitral valve stenosis (s/p replacement), and GI bleeding due to AVMs who presented to ED with c/o vague symptoms. He was found to be hypotensive on admission with H/ H 6.6/21.1 on admission with melenotic stools to which GI has been consulted. He is currently on pressors and antibiotics for pneumonia. 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 He underwent an EGD 10/2017 and most recently 12/01/17 with duodenal AVMs treated with APC. This morning patient was resting in bed w/o acute distress. No hematemesis or hematochezia. Denies CP, SOB, dizziness, abd pain, N/V, or LGI symptoms such as diarrhea or constipation. Takes iron supplement and Xarelto at home (unsure of last dose, patient noted to be a poor historian). Drinks 2-3 beers daily. No previous treatment for hep C. Past History Past Medical History: COPD, GERD, hepatitis (C), hypertension, other (PE, mitral valve stenosis) Past Surgical History: bowel surgery, Other (mitral valve replacement) Social history: smoking, alcohol abuse Family history: hypertension Medications and Allergies Allergies Allergy/AdvReac Type Severity Reaction Status Date / Time No Known Allergies Allergy Verified 01/23/14 23:59 Home Medications Medication Instructions Recorded Confirmed Last Taken Type Nicotine [Habitrol] 7 mg TD QDAY #30 patch 11/09/17 12/07/17 Unknown Rx Sennosides/Docusate [Senokot S] 2 tab PO QHS PRN #60 tablet 11/09/17 12/07/17 Unknown Rx Ferrous Sulfate [Feosol 325 MG tab] 325 mg PO TID #90 tablet 12/09/17 Unknown Rx Metoprolol [Lopressor TAB] 50 mg PO TID #90 tablet 12/09/17 Unknown Rx Pantoprazole [Protonix TAB] 40 mg PO BID #60 tablet 12/09/17 Unknown Rx Rivaroxaban [Xarelto] 10 mg PO QDAY #30 tab 07/25/18 Unknown Rx Active Meds: Active Medications Acetaminophen (Tylenol) 650 mg PO Q4H PRN PRN Reason: Pain MILD(1-3)/Fever >100.5/ Norepinephrine (Levophed Drip 4 Mg/Ns 250 Ml) 4 mg in 250 mls @ 7.5 mls/hr IV TITR [facility]; Protocol Last Titration: 12/24/17 05:15 Dose: 2 mcg/min, 7.5 mls/hr Levofloxacin/Dextrose (Levaquin 750mg/150ml) 750 mg in 150 mls @ 100 mls/hr IV Q24H [facility]; Protocol Last Admin: 12/24/17 05:04 Dose: 100 mls/hr Piperacillin Sod/Tazobactam Sod (Zosyn/Ns 4.5gm/100ml) 4.5 gm in 100 mls @ 200 mls/hr IV Q8HR [facility]; Protocol Last Admin: 12/24/17 05:35 Dose: 200 mls/hr Ondansetron HCl (Zofran) 4 mg IV Q8H PRN PRN Reason: Nausea And Vomiting Pantoprazole Sodium (Protonix) 40 mg IV BID [facility] Sodium Chloride (Sodium Chloride Flush Syringe 10 Ml) 10 ml IV BID [facility] Sodium Chloride (Sodium Chloride Flush Syringe 10 Ml) 10 ml IV PRN PRN PRN Reason: LINE FLUSH Review of Systems - Review of Systems All systems: negative Gastrointestinal: melena Exam - Constitutional Vital Signs: Temp Pulse Resp BP Pulse Ox 98.1 F 93 H 16 103/72 100 12/24/17 08:00 12/24/17 08:50 12/24/17 08:50 12/24/17 08:50 12/24/17 09:32 General appearance: no acute distress - Respiratory Respiratory: bilateral: diminished - Cardiovascular Rhythm: regular Heart Sounds: Present: S1 & S2 - Gastrointestinal General gastrointestinal: Present: soft, non-tender, non-distended, normal bowel sounds - Neurologic Neurological: oriented to person, oriented to time - Labs CBC & Chem 7: 12/24/17 05:50 12/23/17 20:00 Lab Results: Laboratory Results - last 24 hr 12/23/17 12/23/17 12/23/17 20:00 20:00 20:00 WBC 8.4 RBC 2.43 L Hgb 6.6 L Hct 21.1 L MCV 87 MCH 27 L MCHC 31 L RDW 18.6 H Plt Count 375 Lymph % (Auto) 11.0 L [place] % (Auto) 10.5 H Eos % (Auto) 1.0 Baso % (Auto) 0.9 Lymph # 0.9 L [place] # 0.9 H Eos # 0.1 Baso # 0.1 Seg Neutrophils % 76.6 H Seg Neutrophils # 6.4 PT INR Sodium 129 L Potassium 3.3 L Chloride 90.9 L Carbon Dioxide 22 Anion Gap 19 BUN 32 H Creatinine 1.2 Estimated GFR > 60 BUN/Creatinine Ratio 27 Glucose 116 H POC Glucose Calcium 8.4 Total Bilirubin 3.80 H Direct Bilirubin 2.8 H Indirect Bilirubin 1.0 AST 56 H ALT 29 Alkaline Phosphatase 109 NT-Pro-B Natriuret Pep Total Protein 6.2 L Albumin 2.6 L Albumin/Globulin Ratio 0.7 Blood Type Antibody Screen Crossmatch 12/23/17 12/23/17 12/24/17 20:40 20:56 00:30 WBC RBC Hgb Hct MCV MCH MCHC RDW Plt Count Lymph % (Auto) [place] % (Auto) Eos % (Auto) Baso % (Auto) Lymph # [place] # Eos # Baso # Seg Neutrophils % Seg Neutrophils # PT 28.3 H INR 2.46 H Sodium Potassium Chloride Carbon Dioxide Anion Gap BUN Creatinine Estimated GFR BUN/Creatinine Ratio Glucose POC Glucose Calcium Total Bilirubin Direct Bilirubin Indirect Bilirubin AST ALT Alkaline Phosphatase NT-Pro-B Natriuret Pep 4304 H Total Protein Albumin Albumin/Globulin Ratio Blood Type B POSITIVE Antibody Screen Negative Crossmatch See Detail 12/24/17 12/24/17 12/24/17 03:41 05:50 07:45 WBC RBC Hgb 8.4 L 8.1 L Hct 26.3 L 24.5 L MCV MCH MCHC RDW Plt Count Lymph % (Auto) [place] % (Auto) Eos % (Auto) Baso % (Auto) Lymph # [place] # Eos # Baso # Seg Neutrophils % Seg Neutrophils # PT INR Sodium Potassium Chloride Carbon Dioxide Anion Gap BUN Creatinine Estimated GFR BUN/Creatinine Ratio Glucose POC Glucose 144 H Calcium Total Bilirubin Direct Bilirubin Indirect Bilirubin AST ALT Alkaline Phosphatase NT-Pro-B Natriuret Pep Total Protein Albumin Albumin/Globulin Ratio Blood Type Antibody Screen Crossmatch Assessment and Plan 1.GI bleed 2.melena 3.hx of duodenal AVMs -HGB 8.1-s/p transfusion of 2 units PRBCs -INR 2.46, plt 375 -continue to monitor H/H and transfuse as needed -currently on levophed gtt due to hypotension -black stool noted on ER rectal exam with stool occult positive -no active signs of bleeding this am per nursing -last EGD 12/01/2017 revealed duodenal bulb AVMs (treated with APC) -etiology-most likely 2/2 AVMs -will repeat EGD in am once medically stable and INR improved, unless overt bleeding develops -clear liquids okay today then NPO after MN -continue PPI and supportive care 4.elevated LFTs -AST 56, ALT 29, Alk phos 109, T.albert 3.80 -etiology- most likely 2/2 ETOH abuse and hx of Hepatitis C -CT 12/24 showed liver enlarged but no evidence of lesion -will order HCV VL and genotype- further treatment as outpatient -alcohol cessation discussed with pt and encouraged
[2017-12-24] MEDS: PROTONIX IV SCH ×2 (10:55→21:39)
[2017-12-24] MEDS: SODIUM CHLORIDE FLUSH SYRINGE 10 ML IV SCH ×2 (11:05→22:10)
--- NOTE | 2017-12-24 11:56 | Consultation ---
History of Present Illness Consult date: 12/24/17 Requesting physician: LOR SYED Reason for consult: other (Acute GI Bleed; Hypotension) History of present illness: PULMONARY/CCM CONSULT NOTE (Full dictation # [id number]) Please see dictated notes for full details Past History Past Medical History: COPD, GERD, hepatitis (C), hypertension, other (PE, mitral valve stenosis) Past Surgical History: bowel surgery, Other (mitral valve replacement) Social history: smoking, alcohol abuse Family history: hypertension Medications and Allergies Allergies Allergy/AdvReac Type Severity Reaction Status Date / Time No Known Allergies Allergy Verified 01/23/14 23:59 Home Medications Medication Instructions Recorded Confirmed Last Taken Type Nicotine [Habitrol] 7 mg TD QDAY #30 patch 11/09/17 12/29/17 Unknown Rx Sennosides/Docusate [Senokot S] 2 tab PO QHS PRN #60 tablet 11/09/17 12/28/17 Unknown Rx Ferrous Sulfate [Feosol 325 MG tab] 325 mg PO TID #90 tablet 12/09/17 12/29/17 Unknown Rx Metoprolol [Lopressor TAB] 50 mg PO TID #90 tablet 12/09/17 12/29/17 Unknown Rx Pantoprazole [Protonix TAB] 40 mg PO BID #60 tablet 12/09/17 12/28/17 Unknown Rx Rivaroxaban [Xarelto] 10 mg PO QDAY #30 tab 12/09/17 12/28/17 Unknown Rx Active Meds: Active Medications Acetaminophen (Tylenol) 650 mg PO Q4H PRN PRN Reason: Pain MILD(1-3)/Fever >100.5/ Norepinephrine (Levophed Drip 4 Mg/Ns 250 Ml) 4 mg in 250 mls @ 7.5 mls/hr IV TITR [facility]; Protocol Last Titration: 12/24/17 05:15 Dose: 2 mcg/min, 7.5 mls/hr Levofloxacin/Dextrose (Levaquin 750mg/150ml) 750 mg in 150 mls @ 100 mls/hr IV Q24H [facility]; Protocol Last Admin: 12/24/17 05:04 Dose: 100 mls/hr Piperacillin Sod/Tazobactam Sod (Zosyn/Ns 4.5gm/100ml) 4.5 gm in 100 mls @ 200 mls/hr IV Q8HR [facility]; Protocol Last Admin: 12/24/17 05:35 Dose: 200 mls/hr Ondansetron HCl (Zofran) 4 mg IV Q8H PRN PRN Reason: Nausea And Vomiting Pantoprazole Sodium (Protonix) 40 mg IV BID [facility] Last Admin: 12/24/17 10:55 Dose: 40 mg Sodium Chloride (Sodium Chloride Flush Syringe 10 Ml) 10 ml IV BID [facility] Last Admin: 12/24/17 11:05 Dose: 10 ml Sodium Chloride (Sodium Chloride Flush Syringe 10 Ml) 10 ml IV PRN PRN PRN Reason: LINE FLUSH Physical Examination Vital signs: Vital Signs Pulse Ox 94 12/23/17 19:38 Results - Laboratory Findings CBC and BMP: 12/27/17 14:25 12/28/17 14:03 PT/INR, D-dimer PT 28.3 Sec. (12.2-14.9) H 12/23/17 20:56 INR 2.46 (0.87-1.13) H 12/23/17 20:56 Abnormal lab findings: Abnormal Labs 12/23/17 12/23/17 12/23/17 20:00 20:00 20:00 RBC 2.43 L Hgb 6.6 L Hct 21.1 L MCH 27 L MCHC 31 L RDW 18.6 H Lymph % (Auto) 11.0 L [place] % (Auto) 10.5 H Lymph # 0.9 L [place] # 0.9 H Seg Neutrophils % 76.6 H PT INR Sodium 129 L Potassium 3.3 L Chloride 90.9 L BUN 32 H Glucose 116 H POC Glucose Total Bilirubin 3.80 H Direct Bilirubin 2.8 H AST 56 H NT-Pro-B Natriuret Pep Total Protein 6.2 L Albumin 2.6 L Crossmatch 12/23/17 12/23/17 12/24/17 20:40 20:56 00:30 RBC Hgb Hct MCH MCHC RDW Lymph % (Auto) [place] % (Auto) Lymph # [place] # Seg Neutrophils % PT 28.3 H INR 2.46 H Sodium Potassium Chloride BUN Glucose POC Glucose Total Bilirubin Direct Bilirubin AST NT-Pro-B Natriuret Pep 4304 H Total Protein Albumin Crossmatch See Detail 12/24/17 12/24/17 12/24/17 03:41 05:50 07:45 RBC Hgb 8.4 L 8.1 L Hct 26.3 L 24.5 L MCH MCHC RDW Lymph % (Auto) [place] % (Auto) Lymph # [place] # Seg Neutrophils % PT INR Sodium Potassium Chloride BUN Glucose POC Glucose 144 H Total Bilirubin Direct Bilirubin AST NT-Pro-B Natriuret Pep Total Protein Albumin Crossmatch
--- NOTE | 2017-12-24 15:54 | Event Note ---
Date: 12/24/17 Pt seen and examined Patient with PMH of COPD, GERD, HTN, PE, hepatitis C, mitral valve stenosis (s/ p replacement), and GI bleeding due to AVMs who presented to ED with c/o vague symptoms. He was found to be hypotensive, H/H 6.6/21.1 with melenotic stool. s/p 2 unit PRBC transfusion, on levophed Plan for EGD tomorrow..
[2017-12-25] MEDS: LEVAQUIN 750MG/150ML 750 MG/150 ML BAG IV SCH (01:14)
[2017-12-25 05:03] LABS: Basophils % (Auto) 0.2 % (0.0-1.8); Hematocrit 23.1 % (35.5-45.6); Hemoglobin 7.5 gm/dl (11.8-15.2); Lymphocytes # (Auto) 0.4 K/mm3 (1.2-5.4); Lymphocytes % (Auto) 4.8 % (13.4-35.0); Mean Corpuscular HGB Conc 32 % (32-34); Mean Corpuscular Hemoglobin 28 pg (28-32); Mean Corpuscular Volume 86 fl (84-94); Monocytes # (Auto) 1.3 K/mm3 (0.0-0.8); Monocytes % (Auto) 13.5 % (0.0-7.3); Platelet Count 272 K/mm3 (140-440); Red Cell Distribution Width 17.9 % (13.2-15.2)
[2017-12-25 05:14] LABS: INR 1.42 (0.87-1.13)
[2017-12-25] MEDS: ZOSYN/NS 4.5GM/100ML 4.5 GM/100 ML VIAL IV SCH ×3 (05:20→21:42)
[2017-12-25 05:22] LABS: BUN/Creatinine Ratio 18; Blood Urea Nitrogen 18 mg/dL (9-20); Calcium 8.5 mg/dL (8.4-10.2); Hemolysis Index 0
[2017-12-25 05:32] LABS: Hepatitis A Antibody IgM Non-Reactive (NonReactive); Hepatitis B Core IgM Non-Reactive (NonReactive); Hepatitis B Surface Antigen Non-Reactive (Negative); Hepatitis C Virus Antibody Reactive (NonReactive)
--- NOTE | 2017-12-25 07:29 | Progress Note ---
Assessment and Plan GI bleed Hypotension secondary to GI bleed and dehydration Acute blood loss anemia Pneumonia, likely aspiration HFpEF--compensated Hypokalemia, Hepatitis C mitral valve stenosis (s/p replacement) GERD - s/p 2 units PRBC - EGD today showed two minute possible AVMs in 2nd portion, no active bleeding - plan for coloscopy tomorrow, bowel prep - Antibiotics follow cultures -on anticoagulation with xarelto for MVR currently on hold -chronic home medications -PPI Continue to monitor in ICU. For colonoscopy tomorrow Subjective Date of service: 12/25/17 Interval history: Pt seen and examined Patient with PMH of COPD, GERD, HTN, PE, hepatitis C, mitral valve stenosis (s/ p replacement), and GI bleeding due to AVMs who presented to ED with c/o vague symptoms. He was found to be hypotensive, H/H 6.6/21.1 with melenotic stool. s/p 2 unit PRBC transfusion, on 2mcg of norepinephrine No hematemesis or hematochezia. Denies CP, SOB, dizziness, abd pain, N/V, or LGI symptoms such as diarrhea or constipation. Takes iron supplement and Xarelto at home (unsure of last dose, patient noted to be a poor historian). Drinks 2-3 beers daily. No previous treatment for hep C. Plan for EGD today/colonoscopy tomorrow if EGD is negative Seen and examined. Vitals, labs, medications, chart reviewed. 24 hour events reviewed. No acute overnight events reported. He feels good Objective - Exam Narrative Exam: General appearance: Present: no acute distress - EENT Eyes: PERRL, EOM intact ENT: hearing intact, clear oral mucosa Ears: bilateral: normal - Neck Neck: supple, normal ROM - Respiratory Respiratory effort: normal Respiratory: bilateral: CTA - Cardiovascular Rhythm: regular Heart Sounds: Present: S1 & S2. Absent: gallop, rub Extremities: pulses intact, normal color, Full ROM - Gastrointestinal General gastrointestinal: Present: soft, non-tender, non-distended, normal bowel sounds - Integumentary Integumentary: clear, warm, dry - Musculoskeletal Musculoskeletal: 1, strength equal bilaterally - Neurologic Neurologic: moves all extremities - Psychiatric Psychiatric: memory intact, appropriate mood/affect, intact judgment & insight Vital Signs - 12hr 12/24/17 12/24/17 12/24/17 19:30 19:40 19:50 Temperature Pulse Rate 90 95 H 90 Pulse Rate [ Apical] Respiratory 25 H 33 H 26 H Rate Blood Pressure 104/74 104/74 99/73 O2 Sat by Pulse 93 Oximetry 12/24/17 12/24/17 12/24/17 20:00 20:10 20:20 Temperature 98.8 F Pulse Rate 91 H 93 H 91 H Pulse Rate [ 94 H Apical] Respiratory 31 H 22 27 H Rate Blood Pressure 105/77 105/77 100/72 O2 Sat by Pulse 100 99 100 Oximetry 12/24/17 12/24/17 12/24/17 20:30 20:40 20:50 Temperature Pulse Rate 92 H 90 96 H Pulse Rate [ Apical] Respiratory 21 16 11 L Rate Blood Pressure 103/70 103/70 88/63 O2 Sat by Pulse 100 100 Oximetry 12/24/17 12/24/17 12/24/17 21:00 21:10 21:20 Temperature Pulse Rate 92 H 92 H 88 Pulse Rate [ Apical] Respiratory 19 20 32 H Rate Blood Pressure 96/65 96/65 95/70 O2 Sat by Pulse 99 100 100 Oximetry 12/24/17 12/24/17 12/24/17 21:30 21:40 21:50 Temperature Pulse Rate 88 90 88 Pulse Rate [ Apical] Respiratory 22 24 20 Rate Blood Pressure 94/68 94/68 100/67 O2 Sat by Pulse 100 100 100 Oximetry 12/24/17 12/24/17 12/24/17 22:00 22:10 22:20 Temperature Pulse Rate 89 92 H 90 Pulse Rate [ Apical] Respiratory 23 24 17 Rate Blood Pressure 100/67 85/57 95/68 O2 Sat by Pulse 100 100 99 Oximetry 12/24/17 12/24/17 12/24/17 22:30 22:40 22:50 Temperature Pulse Rate 91 H 90 91 H Pulse Rate [ Apical] Respiratory 17 17 14 Rate Blood Pressure 93/66 95/68 93/69 O2 Sat by Pulse 99 99 99 Oximetry 12/24/17 12/24/17 12/24/17 23:00 23:10 23:20 Temperature Pulse Rate 93 H 91 H 88 Pulse Rate [ Apical] Respiratory 16 20 16 Rate Blood Pressure 100/68 93/69 99/75 O2 Sat by Pulse 100 100 100 Oximetry 08/02/0212/24/17 12/24/17 23:30 23:40 23:50 Temperature Pulse Rate 91 H 88 89 Pulse Rate [ Apical] Respiratory 21 10 L 18 Rate Blood Pressure 105/74 105/74 92/63 O2 Sat by Pulse 100 100 100 Oximetry 12/24/17 12/25/17 12/25/17 23:58 00:00 00:10 Temperature 97.8 F Pulse Rate 90 89 89 Pulse Rate [ 87 Apical] Respiratory 17 18 21 Rate Blood Pressure 92/63 92/63 92/63 O2 Sat by Pulse 100 100 100 Oximetry 12/25/17 12/25/17 12/25/17 00:20 00:30 00:40 Temperature Pulse Rate 90 91 H 89 Pulse Rate [ Apical] Respiratory 24 21 21 Rate Blood Pressure 98/69 99/71 98/69 O2 Sat by Pulse 100 100 100 Oximetry 12/25/17 12/25/17 12/25/17 00:50 01:00 01:10 Temperature Pulse Rate 90 90 91 H Pulse Rate [ Apical] Respiratory 18 24 24 Rate Blood Pressure 103/74 96/70 103/74 O2 Sat by Pulse 100 100 100 Oximetry 12/25/17 12/25/17 12/25/17 01:20 01:30 01:40 Temperature Pulse Rate 94 H 89 94 H Pulse Rate [ Apical] Respiratory 32 H 20 31 H Rate Blood Pressure 92/64 95/72 96/70 O2 Sat by Pulse 100 100 100 Oximetry 12/25/17 12/25/17 12/25/17 01:50 02:00 02:10 Temperature Pulse Rate 91 H 90 91 H Pulse Rate [ Apical] Respiratory 19 25 H 26 H Rate Blood Pressure 102/75 97/72 95/72 O2 Sat by Pulse 100 100 100 Oximetry 12/25/17 12/25/17 12/25/17 02:20 02:30 02:40 Temperature Pulse Rate 91 H 90 92 H Pulse Rate [ Apical] Respiratory 25 H 27 H 21 Rate Blood Pressure 84/61 96/69 96/69 O2 Sat by Pulse 100 100 Oximetry 12/25/17 12/25/17 12/25/17 02:50 03:00 03:10 Temperature Pulse Rate 89 91 H 90 Pulse Rate [ Apical] Respiratory 25 H 35 H 27 H Rate Blood Pressure 97/70 87/65 87/65 O2 Sat by Pulse 100 100 Oximetry 12/25/17 12/25/17 12/25/17 03:20 03:30 03:40 Temperature Pulse Rate 90 89 89 Pulse Rate [ Apical] Respiratory 20 23 14 Rate Blood Pressure 88/59 87/56 87/56 O2 Sat by Pulse 100 100 100 Oximetry 12/25/17 12/25/17 12/25/17 03:48 03:50 04:00 Temperature 98.1 F Pulse Rate 89 89 Pulse Rate [ 91 H Apical] Respiratory 17 15 Rate Blood Pressure 96/64 95/66 O2 Sat by Pulse 100 Oximetry 12/25/17 12/25/17 12/25/17 04:10 04:20 04:30 Temperature Pulse Rate 90 89 89 Pulse Rate [ Apical] Respiratory 15 18 16 Rate Blood Pressure 96/64 90/59 91/62 O2 Sat by Pulse 98 85 Oximetry 12/25/17 12/25/17 12/25/17 04:40 04:50 05:00 Temperature Pulse Rate 90 89 90 Pulse Rate [ Apical] Respiratory 32 H 24 20 Rate Blood Pressure 91/62 83/57 94/71 O2 Sat by Pulse 100 Oximetry 12/25/17 12/25/17 12/25/17 05:10 05:20 05:30 Temperature Pulse Rate 90 90 89 Pulse Rate [ Apical] Respiratory 20 30 H 26 H Rate Blood Pressure 94/71 95/69 103/71 O2 Sat by Pulse 100 100 100 Oximetry 12/25/17 12/25/17 12/25/17 05:40 05:50 06:00 Temperature Pulse Rate 89 90 90 Pulse Rate [ Apical] Respiratory 23 30 H 17 Rate Blood Pressure 103/71 99/69 100/73 O2 Sat by Pulse 100 100 100 Oximetry CBC and BMP: 12/26/17 04:20 12/25/17 04:45 ABG, PT/INR, D-dimer: PT/INR, D-dimer PT 18.2 Sec. (12.2-14.9) H 12/25/17 04:45 INR 1.42 (0.87-1.13) H 12/25/17 04:45 Abnormal lab findings: Abnormal Labs 12/23/17 12/23/17 12/23/17 20:00 20:00 20:00 RBC 2.43 L Hgb 6.6 L Hct 21.1 L MCH 27 L MCHC 31 L RDW 18.6 H Lymph % (Auto) 11.0 L Smyth % (Auto) 10.5 H Lymph # 0.9 L Smyth # 0.9 H Seg Neutrophils % 76.6 H PT INR Sodium 129 L Potassium 3.3 L Chloride 90.9 L BUN 32 H Glucose 116 H POC Glucose Total Bilirubin 3.80 H Direct Bilirubin 2.8 H AST 56 H NT-Pro-B Natriuret Pep Total Protein 6.2 L Albumin 2.6 L Hepatitis C Antibody Crossmatch 12/23/17 12/23/17 12/24/17 20:40 20:56 00:30 RBC Hgb Hct MCH MCHC RDW Lymph % (Auto) Smyth % (Auto) Lymph # Smyth # Seg Neutrophils % PT 28.3 H INR 2.46 H Sodium Potassium Chloride BUN Glucose POC Glucose Total Bilirubin Direct Bilirubin AST NT-Pro-B Natriuret Pep 4304 H Total Protein Albumin Hepatitis C Antibody Crossmatch See Detail 12/24/17 12/24/17 12/24/17 03:41 05:50 07:45 RBC Hgb 8.4 L 8.1 L Hct 26.3 L 24.5 L MCH MCHC RDW Lymph % (Auto) Smyth % (Auto) Lymph # Smyth # Seg Neutrophils % PT INR Sodium Potassium Chloride BUN Glucose POC Glucose 144 H Total Bilirubin Direct Bilirubin AST NT-Pro-B Natriuret Pep Total Protein Albumin Hepatitis C Antibody Crossmatch 12/24/17 12/25/17 12/25/17 12:18 04:45 04:45 RBC 2.70 L Hgb 7.5 L Hct 23.1 L MCH MCHC RDW 17.9 H Lymph % (Auto) 4.8 L Smyth % (Auto) 13.5 H Lymph # 0.4 L Smyth # 1.3 H Seg Neutrophils % 81.5 H PT INR Sodium 136 L D Potassium Chloride BUN Glucose 107 H POC Glucose 111 H Total Bilirubin Direct Bilirubin AST NT-Pro-B Natriuret Pep Total Protein Albumin Hepatitis C Antibody Crossmatch 12/25/17 12/25/17 04:45 04:45 RBC Hgb Hct MCH MCHC RDW Lymph % (Auto) Smyth % (Auto) Lymph # Smyth # Seg Neutrophils % PT 18.2 H INR 1.42 H Sodium Potassium Chloride BUN Glucose POC Glucose Total Bilirubin Direct Bilirubin AST NT-Pro-B Natriuret Pep Total Protein Albumin Hepatitis C Antibody Reactive A Crossmatch
[2017-12-25] MEDS ORDERED: NACL 0.9% 500 ML 500 ML IV NR (09:16)
[2017-12-25] MEDS ORDERED: DIPRIVAN 10 MG/ML IV ONE ×2 (09:56)
[2017-12-25] MEDS: PROTONIX IV SCH ×2 (10:44→21:43)
[2017-12-25] MEDS: SODIUM CHLORIDE FLUSH SYRINGE 10 ML IV SCH (11:13)
[2017-12-25] MEDS ORDERED: WATER FOR IRRIG STERILE IR ONE (12:12)
[2017-12-25] MEDS ORDERED: NACL 0.9% 1000 ML 1,000 ML IV SCH (13:00)
[2017-12-25] MEDS ORDERED: VERSED ONE (13:37)
[2017-12-25] MEDS ORDERED: KETALAR ONE (13:47)
--- NOTE | 2017-12-25 13:57 | Post Operative Note ---
Pre-op diagnosis: GI Bleed Post-op diagnosis: other (Hiatal hernia, small possible AVMs) Findings: 1. No active bleeding or clots 2. Small hiatal hernia 3. Two minute possible AVMs in 2nd portion, not bleeding, atypical Procedure: EGD Anesthesia: MAC Surgeon: JERMAINE WAY Estimated blood loss: none Pathology: none Specimen disposition: other (N/A) Condition: stable Disposition: ICU (Recs: 1. Colonoscopy to complete w/u before resumption of xarelto. 2. Patient may be intolerant of anticoagulation as an outpatient. 3. Will get capsule endoscopy as an outpatient. 4. Continue supportive care.)
--- NOTE | 2017-12-25 14:17 | Operative Report ---
PROCEDURE PERFORMED: Esophagogastroduodenoscopy. PREOPERATIVE DIAGNOSES: Gastrointestinal bleeding with a history of arteriovenous malformations. POSTOPERATIVE DIAGNOSES: Hiatal hernia and 2 possible AVMs in the small bowel, but not conclusive with no significant active bleeding. ENDOSCOPIST: Da Swartz MD INSTRUMENT: [employer] video endoscope. MEDICATIONS: MAC anesthesia by [facility]. COMPLICATIONS: No apparent complications. ESTIMATED BLOOD LOSS: None. SPECIMENS: None. IMPLANTS: None. ASSISTANTS: None. CONDITION AT COMPLETION: Stable. TECHNIQUE: The patient was informed of the risks and benefits of the procedure. He signed informed consent to proceed. He was placed in left lateral decubitus position. The above sedative medications were given. His vital signs remained stable throughout the procedure. The instrument was advanced from the mouth to the second portion of the duodenum under direct visualization. At that point, the bowel was insufflated and the endoscope was slowly withdrawn. FINDINGS: 1. No active bleeding or blood clots noted. 2. Small hiatal hernia. 3. Two possible minute arteriovenous malformations in the second portion of the duodenum, not bleeding and they were atypical and may have simply been scoped trauma. RECOMMENDATIONS: 1. Colonoscopy to complete the workup before resumption of his Xarelto. 2. We will get a capsule endoscopy as an outpatient. 3. The patient may be intolerant to anticoagulation as an outpatient. 4. Continue current supportive care. JOB# [id number] HARAPL/ISAC
--- NOTE | 2017-12-25 14:43 | Progress Note ---
Assessment and Plan GI bleed - s/p 2 units PRBC - EGD today showed two minute possible AVMs in 2nd portion, no active bleeding - plan for coloscopy tomorrow Hypotension secondary to GI bleed and dehydration - Started Levophed drip from ER, off today Acute blood loss anemia, transfused Pneumonia, likely aspiration - IV Levaquin, Zosyn, follow cultures Chronic CHF, diastolic dysfunction, stable - monitor volume status Hypokalemia, replete Hepatitis C, need outpt follow up mitral valve stenosis (s/p replacement) - on anticoagulation with xarelto, now on hold GERD, PPI Subjective Date of service: 12/25/17 Interval history: Pt seen and examined s/p EGD today Plan for colonoscopy tomorrow Objective - Constitutional Vitals: Vital Signs - 12hr 12/25/17 12/25/17 12/25/17 02:50 03:00 03:10 Temperature Pulse Rate 89 91 H 90 Pulse Rate [ Apical] Respiratory 25 H 35 H 27 H Rate Blood Pressure 97/70 87/65 87/65 O2 Sat by Pulse 100 100 Oximetry 12/25/17 12/25/17 12/25/17 03:20 03:30 03:40 Temperature Pulse Rate 90 89 89 Pulse Rate [ Apical] Respiratory 20 23 14 Rate Blood Pressure 88/59 87/56 87/56 O2 Sat by Pulse 100 100 100 Oximetry 12/25/17 12/25/17 12/25/17 03:48 03:50 04:00 Temperature 98.1 F Pulse Rate 89 89 Pulse Rate [ 91 H Apical] Respiratory 17 15 Rate Blood Pressure 96/64 95/66 O2 Sat by Pulse 100 Oximetry 12/25/17 12/25/17 12/25/17 04:10 04:20 04:30 Temperature Pulse Rate 90 89 89 Pulse Rate [ Apical] Respiratory 15 18 16 Rate Blood Pressure 96/64 90/59 91/62 O2 Sat by Pulse 98 85 Oximetry 12/25/17 12/25/17 12/25/17 04:40 04:50 05:00 Temperature Pulse Rate 90 89 90 Pulse Rate [ Apical] Respiratory 32 H 24 20 Rate Blood Pressure 91/62 83/57 94/71 O2 Sat by Pulse 100 Oximetry 12/25/17 12/25/17 12/25/17 05:10 05:20 05:30 Temperature Pulse Rate 90 90 89 Pulse Rate [ Apical] Respiratory 20 30 H 26 H Rate Blood Pressure 94/71 95/69 103/71 O2 Sat by Pulse 100 100 100 Oximetry 12/25/17 12/25/17 12/25/17 05:40 05:50 06:00 Temperature Pulse Rate 89 90 90 Pulse Rate [ Apical] Respiratory 23 30 H 17 Rate Blood Pressure 103/71 99/69 100/73 O2 Sat by Pulse 100 100 100 Oximetry 12/25/17 12/25/17 12/25/17 06:10 06:20 06:30 Temperature Pulse Rate 91 H 92 H 90 Pulse Rate [ Apical] Respiratory 30 H 26 H 20 Rate Blood Pressure 100/73 108/76 93/67 O2 Sat by Pulse 100 100 100 Oximetry 12/25/17 12/25/17 12/25/17 06:40 06:50 07:00 Temperature Pulse Rate 93 H 90 93 H Pulse Rate [ Apical] Respiratory 31 H 19 31 H Rate Blood Pressure 93/67 92/68 99/69 O2 Sat by Pulse 100 100 100 Oximetry 12/25/17 12/25/17 12/25/17 07:10 07:20 07:30 Temperature Pulse Rate 89 93 H 90 Pulse Rate [ Apical] Respiratory 15 30 H 20 Rate Blood Pressure 99/69 91/67 101/70 O2 Sat by Pulse 100 100 100 Oximetry 12/25/17 12/25/17 12/25/17 07:40 07:50 08:00 Temperature 98.0 F Pulse Rate 92 H 89 88 Pulse Rate [ 91 H Apical] Respiratory 31 H 20 23 Rate Blood Pressure 101/70 90/68 90/63 O2 Sat by Pulse 100 100 100 Oximetry 12/25/17 12/25/17 12/25/17 08:10 08:20 08:30 Temperature Pulse Rate 88 88 88 Pulse Rate [ Apical] Respiratory 19 21 16 Rate Blood Pressure 90/63 98/67 78/51 O2 Sat by Pulse 100 100 100 Oximetry 12/25/17 12/25/17 12/25/17 10:00 12:00 12:31 Temperature 97.5 F L 97.4 F L Pulse Rate 85 Pulse Rate [ Apical] Respiratory 15 Rate Blood Pressure 98/75 O2 Sat by Pulse 100 100 Oximetry 12/25/17 12/25/17 13:01 13:31 Temperature 97.7 F 976 F H Pulse Rate 89 84 Pulse Rate [ Apical] Respiratory 24 25 H Rate Blood Pressure 95/69 101/71 O2 Sat by Pulse 100 98 Oximetry General appearance: Present: no acute distress - EENT Eyes: PERRL, EOM intact ENT: hearing intact, clear oral mucosa Ears: bilateral: normal - Neck Neck: supple, normal ROM - Respiratory Respiratory effort: normal Respiratory: bilateral: CTA - Cardiovascular Rhythm: regular Heart Sounds: Present: S1 & S2. Absent: gallop, rub Extremities: pulses intact, normal color, Full ROM - Gastrointestinal General gastrointestinal: Present: soft, non-tender, non-distended, normal bowel sounds - Integumentary Integumentary: clear, warm, dry - Musculoskeletal Musculoskeletal: 1, strength equal bilaterally - Neurologic Neurologic: moves all extremities - Psychiatric Psychiatric: memory intact, appropriate mood/affect, intact judgment & insight - Labs CBC & Chem 7: 12/25/17 04:45 12/25/17 04:45 Labs: Abnormal lab results 12/23/17 12/25/17 12/25/17 Range/Units 20:40 04:45 04:45 RBC 2.70 L (3.65-5.03) M/mm3 Hgb 7.5 L (11.8-15.2) gm/dl Hct 23.1 L (35.5-45.6) % RDW 17.9 H (13.2-15.2) % Lymph % (Auto) 4.8 L (13.4-35.0) % Mcnairy % (Auto) 13.5 H (0.0-7.3) % Lymph # 0.4 L (1.2-5.4) K/mm3 Mcnairy # 1.3 H (0.0-0.8) K/mm3 Seg Neutrophils % 81.5 H (40.0-70.0) % PT (12.2-14.9) Sec. INR (0.87-1.13) Sodium 136 L D (137-145) mmol/L Glucose 107 H (75-100) mg/dL Hepatitis C Antibody (NonReactive) Crossmatch See Detail 12/25/17 12/25/17 Range/Units 04:45 04:45 RBC (3.65-5.03) M/mm3 Hgb (11.8-15.2) gm/dl Hct (35.5-45.6) % RDW (13.2-15.2) % Lymph % (Auto) (13.4-35.0) % Mcnairy % (Auto) (0.0-7.3) % Lymph # (1.2-5.4) K/mm3 Mcnairy # (0.0-0.8) K/mm3 Seg Neutrophils % (40.0-70.0) % PT 18.2 H (12.2-14.9) Sec. INR 1.42 H (0.87-1.13) Sodium (137-145) mmol/L Glucose (75-100) mg/dL Hepatitis C Antibody Reactive A (NonReactive) Crossmatch
[2017-12-25] MEDS ORDERED: NACL 0.9% 1000 ML 1,000 ML ONE (15:20)
[2017-12-25] MEDS ORDERED: XYLOCAINE MPF 2% ONE (15:30)
[2017-12-25] MEDS ORDERED: GOLYTELY PO ONE (17:00)
[2017-12-26 05:04] LABS: Basophils % (Auto) 0.4 % (0.0-1.8); Eosinophils # (Auto) 0.1 K/mm3 (0.0-0.4); Eosinophils % (Auto) 0.6 % (0.0-4.3); Hematocrit 26.8 % (35.5-45.6); Hemoglobin 8.6 gm/dl (11.8-15.2); Lymphocytes # (Auto) 0.6 K/mm3 (1.2-5.4); Lymphocytes % (Auto) 6.9 % (13.4-35.0); Mean Corpuscular HGB Conc 32 % (32-34); Mean Corpuscular Hemoglobin 28 pg (28-32); Mean Corpuscular Volume 87 fl (84-94); Monocytes # (Auto) 0.9 K/mm3 (0.0-0.8); Platelet Count 223 K/mm3 (140-440); Red Blood Count 3.09 M/mm3 (3.65-5.03)
[2017-12-26] MEDS: ZOSYN/NS 4.5GM/100ML 4.5 GM/100 ML VIAL IV SCH ×3 (05:51→22:08)
[2017-12-26 06:19] LABS: INR 1.36 (0.87-1.13)
--- NOTE | 2017-12-26 09:33 | Gastroenterology Progress Note ---
Assessment and Plan - Patient Problems (1) Acute blood loss anemia Current Visit: No Status: Acute Plan to address problem: H&H is stable. The patient was scheduled for colonoscopy today, but drank only half the prep and is still drinking it. I was not called. Not clear, not NPO. Suboptimal nursing care discussed with team. Colonoscopy will be rescheduled for tomorrow AM with continued prep today. (2) Acute renal insufficiency Current Visit: No Status: Acute (3) Anemia Current Visit: No Status: Acute Subjective Date of service: 12/26/17 Principal diagnosis: GI bleeding Interval history: The patient reports feeling well. Still drinking Golytely, half finished. Objective - Exam Narrative Exam: Passing dark stools. - Constitutional Vitals: Temp Pulse Resp BP Pulse Ox 97.4 F L 85 22 106/74 96 12/26/17 04:00 12/26/17 09:00 12/26/17 09:00 12/26/17 09:00 12/26/17 09:16 General appearance: no acute distress - EENT ENT: hearing intact, clear oral mucosa, dentition normal - Respiratory Respiratory effort: normal Respiratory: bilateral: CTA - Cardiovascular Rhythm: regular - Gastrointestinal General gastrointestinal: Present: soft, non-tender, non-distended, normal bowel sounds - Neurologic Neurological: alert and oriented x3 - Psychiatric Psychiatric: appropriate mood/affect - Labs CBC & Chem 7: 12/26/17 04:20 12/25/17 04:45 Labs: Laboratory Results - last 24 hr 12/23/17 12/26/17 12/26/17 20:40 04:20 04:20 WBC 9.0 RBC 3.09 L Hgb 8.6 L Hct 26.8 L MCV 87 MCH 28 MCHC 32 RDW 18.0 H Plt Count 223 Lymph % (Auto) 6.9 L Barron % (Auto) 10.0 H Eos % (Auto) 0.6 Baso % (Auto) 0.4 Lymph # 0.6 L Barron # 0.9 H Eos # 0.1 Baso # 0.0 Seg Neutrophils % 82.1 H Seg Neutrophils # 7.4 PT 17.6 H INR 1.36 H Blood Type B POSITIVE Antibody Screen Negative Crossmatch See Detail Laboratory Results - last 24 hr 12/23/17 12/26/17 12/26/17 20:40 04:20 04:20 WBC 9.0 RBC 3.09 L Hgb 8.6 L Hct 26.8 L MCV 87 MCH 28 MCHC 32 RDW 18.0 H Plt Count 223 Lymph % (Auto) 6.9 L Barron % (Auto) 10.0 H Eos % (Auto) 0.6 Baso % (Auto) 0.4 Lymph # 0.6 L Barron # 0.9 H Eos # 0.1 Baso # 0.0 Seg Neutrophils % 82.1 H Seg Neutrophils # 7.4 PT 17.6 H INR 1.36 H Blood Type B POSITIVE Antibody Screen Negative Crossmatch See Detail
--- NOTE | 2017-12-26 11:12 | Progress Note ---
Assessment and Plan GI bleed - s/p 2 units PRBC - EGD 12/25 showed two minute possible AVMs in 2nd portion, no active bleeding - plan for coloscopy tomorrow, continue GoLYTELY and nothing by mouth after midnight Hypotension secondary to GI bleed and dehydration - Started Levophed drip from ER, off since yesterday afternoon for an EGD Acute blood loss anemia, transfused, monitor H&H Pneumonia, likely aspiration - IV Levaquin, Zosyn, negative blood cultures Chronic CHF, diastolic dysfunction, stable - monitor volume status Hypokalemia, replete and monitor as needed Hepatitis C, need outpt follow up mitral valve stenosis (s/p replacement) - on anticoagulation with xarelto, now on hold for active GI bleed GERD, PPI Subjective Date of service: 12/26/17 Principal diagnosis: GI bleeding Interval history: Pt seen and examined off levophed since yesterday afternoon Patient was scheduled to have colonoscopy today but could not complete the colonoscopy prep Plan for colonoscopy postponed till tomorrow Objective - Exam Narrative Exam: General appearance: Present: no acute distress - EENT Eyes: PERRL, EOM intact ENT: hearing intact, clear oral mucosa Ears: bilateral: normal - Neck Neck: supple, normal ROM - Respiratory Respiratory effort: normal Respiratory: bilateral: CTA - Cardiovascular Rhythm: regular Heart Sounds: Present: S1 & S2. Absent: gallop, rub Extremities: pulses intact, normal color, Full ROM - Gastrointestinal General gastrointestinal: Present: soft, non-tender, non-distended, normal bowel sounds - Integumentary Integumentary: clear, warm, dry - Musculoskeletal Musculoskeletal: 1, strength equal bilaterally - Neurologic Neurologic: moves all extremities - Psychiatric Psychiatric: memory intact, appropriate mood/affect, intact judgment & insight - Constitutional Vitals: Vital Signs - 12hr 12/25/17 12/25/17 12/25/17 23:15 23:30 23:45 Temperature Pulse Rate 88 88 90 Pulse Rate [ Apical] Respiratory 22 18 18 Rate Blood Pressure 98/76 96/72 103/74 O2 Sat by Pulse 100 100 100 Oximetry 12/26/17 12/26/17 12/26/17 00:00 00:15 00:30 Temperature 97.3 F L Pulse Rate 89 94 H 96 H Pulse Rate [ 85 Apical] Respiratory 21 32 H 36 H Rate Blood Pressure 98/73 96/72 96/72 O2 Sat by Pulse 100 100 98 Oximetry 12/26/17 12/26/17 12/26/17 00:45 01:00 01:15 Temperature Pulse Rate 86 87 87 Pulse Rate [ Apical] Respiratory 21 19 22 Rate Blood Pressure 95/72 101/71 101/73 O2 Sat by Pulse 99 100 100 Oximetry 12/26/17 12/26/17 12/26/17 01:30 01:45 02:00 Temperature Pulse Rate 91 H 89 89 Pulse Rate [ Apical] Respiratory 28 H 22 27 H Rate Blood Pressure 86/68 88/67 85/62 O2 Sat by Pulse 100 100 100 Oximetry 12/26/17 12/26/17 12/26/17 02:15 02:30 02:45 Temperature Pulse Rate 85 84 87 Pulse Rate [ Apical] Respiratory 21 19 18 Rate Blood Pressure 97/73 97/73 99/74 O2 Sat by Pulse 100 98 100 Oximetry 12/26/17 12/26/17 12/26/17 03:00 03:15 03:30 Temperature Pulse Rate 85 85 85 Pulse Rate [ Apical] Respiratory 20 14 17 Rate Blood Pressure 96/73 94/71 88/68 O2 Sat by Pulse 100 100 100 Oximetry 12/26/17 12/26/17 12/26/17 03:45 04:00 04:01 Temperature 97.4 F L Pulse Rate 86 96 H Pulse Rate [ 85 Apical] Respiratory 28 H 27 H 36 H Rate Blood Pressure 95/69 101/73 O2 Sat by Pulse 100 91 100 Oximetry 12/26/17 12/26/17 12/26/17 04:15 04:30 04:45 Temperature Pulse Rate 94 H 86 85 Pulse Rate [ Apical] Respiratory 27 H 20 13 Rate Blood Pressure 99/76 100/73 97/76 O2 Sat by Pulse 95 96 78 L Oximetry 12/26/17 12/26/17 12/26/17 05:00 05:15 05:30 Temperature Pulse Rate 88 87 89 Pulse Rate [ Apical] Respiratory 18 17 21 Rate Blood Pressure 105/79 106/83 96/73 O2 Sat by Pulse 95 93 93 Oximetry 12/26/17 12/26/17 12/26/17 05:45 06:00 06:15 Temperature Pulse Rate 89 87 93 H Pulse Rate [ Apical] Respiratory 14 22 35 H Rate Blood Pressure 96/73 95/62 89/66 O2 Sat by Pulse 100 97 85 Oximetry 12/26/17 12/26/17 12/26/17 06:30 06:45 07:00 Temperature Pulse Rate 82 83 82 Pulse Rate [ Apical] Respiratory 17 14 16 Rate Blood Pressure 99/73 102/75 98/72 O2 Sat by Pulse 94 100 96 Oximetry 12/26/17 12/26/17 12/26/17 07:15 07:30 07:45 Temperature Pulse Rate 83 83 87 Pulse Rate [ Apical] Respiratory 15 15 25 H Rate Blood Pressure 94/73 91/70 95/71 O2 Sat by Pulse 100 100 100 Oximetry 12/26/17 12/26/17 12/26/17 08:00 08:15 08:31 Temperature Pulse Rate 82 84 96 H Pulse Rate [ Apical] Respiratory 17 23 24 Rate Blood Pressure 95/71 100/69 100/69 O2 Sat by Pulse 93 100 98 Oximetry 12/26/17 12/26/17 12/26/17 08:45 09:00 09:16 Temperature Pulse Rate 89 85 Pulse Rate [ Apical] Respiratory 27 H 22 Rate Blood Pressure 104/69 106/74 O2 Sat by Pulse 98 100 96 Oximetry - Labs CBC & Chem 7: 12/26/17 04:20 12/25/17 04:45 Labs: Abnormal lab results 12/23/17 12/26/17 12/26/17 Range/Units 20:40 04:20 04:20 RBC 3.09 L (3.65-5.03) M/mm3 Hgb 8.6 L (11.8-15.2) gm/dl Hct 26.8 L (35.5-45.6) % RDW 18.0 H (13.2-15.2) % Lymph % (Auto) 6.9 L (13.4-35.0) % Simpson % (Auto) 10.0 H (0.0-7.3) % Lymph # 0.6 L (1.2-5.4) K/mm3 Simpson # 0.9 H (0.0-0.8) K/mm3 Seg Neutrophils % 82.1 H (40.0-70.0) % PT 17.6 H (12.2-14.9) Sec. INR 1.36 H (0.87-1.13) Crossmatch See Detail
[2017-12-26] MEDS: PROTONIX IV SCH ×2 (12:12→22:08)
[2017-12-26] MEDS: SODIUM CHLORIDE FLUSH SYRINGE 10 ML IV SCH (12:12)
[2017-12-26] MEDS ORDERED: DULCOLAX PO PRN (15:00)
--- NOTE | 2017-12-26 15:05 | Progress Note ---
Assessment and Plan GI bleed Hypotension secondary to GI bleed and dehydration Acute blood loss anemia Pneumonia, likely aspiration HFpEF--compensated Hypokalemia, Hepatitis C mitral valve stenosis (s/p replacement) GERD - s/p 2 units PRBC - EGD today showed two minute possible AVMs in 2nd portion, no active bleeding - plan for coloscopy tomorrow, bowel prep - Antibiotics follow cultures -on anticoagulation with xarelto for MVR currently on hold -chronic home medications -PPI Continue to monitor in ICU. For colonoscopy tomorrow Subjective Date of service: 12/26/17 Principal diagnosis: GI bleeding Interval history: Pt seen and examined Patient with PMH of COPD, GERD, HTN, PE, hepatitis C, mitral valve stenosis (s/ p replacement), and GI bleeding due to AVMs who presented to ED with c/o vague symptoms. He was found to be hypotensive, H/H 6.6/21.1 with melenotic stool. s/p 2 unit PRBC transfusion, on 2mcg of norepinephrine No hematemesis or hematochezia. Denies CP, SOB, dizziness, abd pain, N/V, or LGI symptoms such as diarrhea or constipation. Takes iron supplement and Xarelto at home (unsure of last dose, patient noted to be a poor historian). Drinks 2-3 beers daily. No previous treatment for hep C. s/p EGD today Seen and examined. Vitals, labs, medications, chart reviewed. 24 hour events reviewed. No acute overnight events reported. Colonoscopy not done, poor bowel prep. Patietn denies any chest pain, no shortness of breath. No fevers or chills. no abdominal pain. No active bleeding Objective - Exam Narrative Exam: General appearance: Present: no acute distress - EENT Eyes: PERRL, EOM intact ENT: hearing intact, clear oral mucosa Ears: bilateral: normal - Neck Neck: supple, normal ROM - Respiratory Respiratory effort: normal Respiratory: bilateral: CTA - Cardiovascular Rhythm: regular Heart Sounds: Present: S1 & S2. Absent: gallop, rub Extremities: pulses intact, normal color, Full ROM - Gastrointestinal General gastrointestinal: Present: soft, non-tender, non-distended, normal bowel sounds - Integumentary Integumentary: clear, warm, dry - Musculoskeletal Musculoskeletal: 1, strength equal bilaterally - Neurologic Neurologic: moves all extremities - Psychiatric Psychiatric: memory intact, appropriate mood/affect, intact judgment & insight Vital Signs - 12hr 12/26/17 12/26/17 12/26/17 03:15 03:30 03:45 Temperature Pulse Rate 85 85 86 Pulse Rate [ Apical] Respiratory 14 17 28 H Rate Blood Pressure 94/71 88/68 95/69 O2 Sat by Pulse 100 100 100 Oximetry 12/26/17 12/26/17 12/26/17 04:00 04:01 04:15 Temperature 97.4 F L Pulse Rate 96 H 94 H Pulse Rate [ 85 Apical] Respiratory 27 H 36 H 27 H Rate Blood Pressure 101/73 99/76 O2 Sat by Pulse 91 100 95 Oximetry 12/26/17 12/26/17 12/26/17 04:30 04:45 05:00 Temperature Pulse Rate 86 85 88 Pulse Rate [ Apical] Respiratory 20 13 18 Rate Blood Pressure 100/73 97/76 105/79 O2 Sat by Pulse 96 78 L 95 Oximetry 12/26/17 12/26/17 12/26/17 05:15 05:30 05:45 Temperature Pulse Rate 87 89 89 Pulse Rate [ Apical] Respiratory 17 21 14 Rate Blood Pressure 106/83 96/73 96/73 O2 Sat by Pulse 93 93 100 Oximetry 12/26/17 12/26/17 12/26/17 06:00 06:15 06:30 Temperature Pulse Rate 87 93 H 82 Pulse Rate [ Apical] Respiratory 22 35 H 17 Rate Blood Pressure 95/62 89/66 99/73 O2 Sat by Pulse 97 85 94 Oximetry 12/26/17 12/26/17 12/26/17 06:45 07:00 07:15 Temperature Pulse Rate 83 82 83 Pulse Rate [ Apical] Respiratory 14 16 15 Rate Blood Pressure 102/75 98/72 94/73 O2 Sat by Pulse 100 96 100 Oximetry 12/26/17 12/26/17 12/26/17 07:30 07:45 08:00 Temperature Pulse Rate 83 87 82 Pulse Rate [ Apical] Respiratory 15 25 H 17 Rate Blood Pressure 91/70 95/71 95/71 O2 Sat by Pulse 100 100 93 Oximetry 12/26/17 12/26/17 12/26/17 08:15 08:31 08:45 Temperature Pulse Rate 84 96 H 89 Pulse Rate [ Apical] Respiratory 23 24 27 H Rate Blood Pressure 100/69 100/69 104/69 O2 Sat by Pulse 100 98 98 Oximetry 12/26/17 12/26/17 09:00 09:16 Temperature Pulse Rate 85 Pulse Rate [ Apical] Respiratory 22 Rate Blood Pressure 106/74 O2 Sat by Pulse 100 96 Oximetry CBC and BMP: 12/26/17 04:20 12/25/17 04:45 ABG, PT/INR, D-dimer: PT/INR, D-dimer PT 17.6 Sec. (12.2-14.9) H 12/26/17 04:20 INR 1.36 (0.87-1.13) H 12/26/17 04:20 Abnormal lab findings: Abnormal Labs 12/23/17 12/23/17 12/23/17 20:00 20:00 20:00 RBC 2.43 L Hgb 6.6 L Hct 21.1 L MCH 27 L MCHC 31 L RDW 18.6 H Lymph % (Auto) 11.0 L [place] % (Auto) 10.5 H Lymph # 0.9 L [place] # 0.9 H Seg Neutrophils % 76.6 H PT INR Sodium 129 L Potassium 3.3 L Chloride 90.9 L BUN 32 H Glucose 116 H POC Glucose Total Bilirubin 3.80 H Direct Bilirubin 2.8 H AST 56 H NT-Pro-B Natriuret Pep Total Protein 6.2 L Albumin 2.6 L Hepatitis C Antibody Crossmatch 12/23/17 12/23/17 12/24/17 20:40 20:56 00:30 RBC Hgb Hct MCH MCHC RDW Lymph % (Auto) [place] % (Auto) Lymph # [place] # Seg Neutrophils % PT 28.3 H INR 2.46 H Sodium Potassium Chloride BUN Glucose POC Glucose Total Bilirubin Direct Bilirubin AST NT-Pro-B Natriuret Pep 4304 H Total Protein Albumin Hepatitis C Antibody Crossmatch See Detail 12/24/17 12/24/17 12/24/17 03:41 05:50 07:45 RBC Hgb 8.4 L 8.1 L Hct 26.3 L 24.5 L MCH MCHC RDW Lymph % (Auto) [place] % (Auto) Lymph # [place] # Seg Neutrophils % PT INR Sodium Potassium Chloride BUN Glucose POC Glucose 144 H Total Bilirubin Direct Bilirubin AST NT-Pro-B Natriuret Pep Total Protein Albumin Hepatitis C Antibody Crossmatch 0812/25/17 12/25/17 12:18 04:45 04:45 RBC 2.70 L Hgb 7.5 L Hct 23.1 L MCH MCHC RDW 17.9 H Lymph % (Auto) 4.8 L [place] % (Auto) 13.5 H Lymph # 0.4 L [place] # 1.3 H Seg Neutrophils % 81.5 H PT INR Sodium 136 L D Potassium Chloride BUN Glucose 107 H POC Glucose 111 H Total Bilirubin Direct Bilirubin AST NT-Pro-B Natriuret Pep Total Protein Albumin Hepatitis C Antibody Crossmatch 12/25/17 12/25/17 12/26/17 04:45 04:45 04:20 RBC 3.09 L Hgb 8.6 L Hct 26.8 L MCH MCHC RDW 18.0 H Lymph % (Auto) 6.9 L [place] % (Auto) 10.0 H Lymph # 0.6 L [place] # 0.9 H Seg Neutrophils % 82.1 H PT 18.2 H INR 1.42 H Sodium Potassium Chloride BUN Glucose POC Glucose Total Bilirubin Direct Bilirubin AST NT-Pro-B Natriuret Pep Total Protein Albumin Hepatitis C Antibody Reactive A Crossmatch 12/26/17 04:20 RBC Hgb Hct MCH MCHC RDW Lymph % (Auto) [place] % (Auto) Lymph # [place] # Seg Neutrophils % PT 17.6 H INR 1.36 H Sodium Potassium Chloride BUN Glucose POC Glucose Total Bilirubin Direct Bilirubin AST NT-Pro-B Natriuret Pep Total Protein Albumin Hepatitis C Antibody Crossmatch
[2017-12-26] MEDS ORDERED: CITRATE OF MAGNESIA PO ONE (18:00)
[2017-12-27] MEDS: SODIUM CHLORIDE FLUSH SYRINGE 10 ML IV SCH ×4 (02:24→23:21)
[2017-12-27] MEDS: LEVAQUIN 750MG/150ML 750 MG/150 ML BAG IV SCH (02:26)
[2017-12-27] MEDS ORDERED: LASIX ONE (05:21)
[2017-12-27] MEDS ORDERED: LASIX IV ONE (06:00)
[2017-12-27] MEDS: ZOSYN/NS 4.5GM/100ML 4.5 GM/100 ML VIAL IV SCH ×4 (06:21→23:22)
[2017-12-27] MEDS ORDERED: WATER FOR IRRIG STERILE ONE (08:36)
[2017-12-27] MEDS ORDERED: NACL 0.9% 1000 ML 1,000 ML ONE (08:36)
[2017-12-27] MEDS ORDERED: WATER FOR IRRIG STERILE IR ONE (08:36)
[2017-12-27] MEDS ORDERED: DIPRIVAN 10 MG/ML IV ONE ×2 (09:13)
[2017-12-27] MEDS: PROTONIX IV SCH ×2 (09:17→23:20)
--- NOTE | 2017-12-27 09:47 | Gastroenterology Progress Note ---
Assessment and Plan - Patient Problems (1) Acute blood loss anemia Current Visit: No Status: Acute Plan to address problem: No bleeding overnight. H&H stable. The patient was scheduled for colonoscopy, however, BP was low and patient was tachypneic. He was not felt to be stable for anesthesia or colonoscopy for this reason. CHF is suspected. He will need to go back on pressors as d/w with nurse. Colonoscopy was cancelled. Not sure he will actually be suitable this admission. Will re advance diet and follow. (2) Acute renal insufficiency Current Visit: No Status: Acute (3) Anemia Current Visit: No Status: Acute Subjective Date of service: 12/27/17 Principal diagnosis: GI bleeding Interval history: No bleeding overnight. Reports being SOB. Denies chest pain. Objective - Exam Narrative Exam: BP 75-98 systolic on monitor observed over 10-15 minutes. Currently not on pressor. - Constitutional Vitals: Temp Pulse Resp BP Pulse Ox 98.2 F 94 H 30 H 104/82 100 12/27/17 09:18 12/27/17 09:18 12/27/17 09:18 12/27/17 09:18 12/27/17 09:18 General appearance: no acute distress - EENT ENT: hearing intact - Respiratory Respiratory effort: normal Respiratory: bilateral: CTA - Cardiovascular Rhythm: regular - Gastrointestinal General gastrointestinal: Present: soft, non-tender, non-distended, normal bowel sounds - Neurologic Neurological: alert and oriented x3 - Labs CBC & Chem 7: 12/26/17 04:20 12/25/17 04:45
[2017-12-27] MEDS: LEVOPHED DRIP 4 MG/NS 250 ML 4 MG/250 ML BAG IV SCH (09:49)
[2017-12-27] MEDS ORDERED: NACL 0.9% 1000 ML 1,000 ML IV SCH (10:00)
--- NOTE | 2017-12-27 13:30 | Progress Note ---
Assessment and Plan GI bleed Hypotension secondary to GI bleed and dehydration Acute blood loss anemia Pneumonia, likely aspiration HFpEF--compensated Hypokalemia, Hepatitis C mitral valve stenosis (s/p replacement) GERD Hypotension, possible secondary to volume depletion - s/p 2 units PRBC - EGD today showed two minute possible AVMs in 2nd portion, no active bleeding - plan for coloscopy tomorrow,if stable - Antibiotics follow cultures -on anticoagulation with xarelto for MVR currently on hold -chronic home medications -PPI Continue to monitor in ICU. For colonoscopy tomorrow, if hemodynamically normal Subjective Date of service: 12/27/17 Principal diagnosis: GI bleeding Interval history: Pt seen and examined Patient with PMH of COPD, GERD, HTN, PE, hepatitis C, mitral valve stenosis (s/ p replacement), and GI bleeding due to AVMs who presented to ED with c/o vague symptoms. He was found to be hypotensive, H/H 6.6/21.1 with melenotic stool. s/p 2 unit PRBC transfusion, on 2mcg of norepinephrine No hematemesis or hematochezia. Denies CP, SOB, dizziness, abd pain, N/V, or LGI symptoms such as diarrhea or constipation. Takes iron supplement and Xarelto at home (unsure of last dose, patient noted to be a poor historian). Drinks 2-3 beers daily. No previous treatment for hep C. s/p EGD Seen and examined. Vitals, labs, medications, chart reviewed. 24 hour events reviewed. No acute overnight events reported. Colonoscopy not done, patient became hypotensive at the start of the procedure requiring the resumption of norepinephrine for BP support Patient denies any chest pain, no shortness of breath. No fevers or chills. no abdominal pain. No active bleeding Objective - Exam Narrative Exam: General appearance: Present: no acute distress - EENT Eyes: PERRL, EOM intact ENT: hearing intact, clear oral mucosa Ears: bilateral: normal - Neck Neck: supple, normal ROM - Respiratory Respiratory effort: normal Respiratory: bilateral: CTA - Cardiovascular Rhythm: regular Heart Sounds: Present: S1 & S2. Absent: gallop, rub Extremities: pulses intact, normal color, Full ROM - Gastrointestinal General gastrointestinal: Present: soft, non-tender, non-distended, normal bowel sounds - Integumentary Integumentary: clear, warm, dry - Musculoskeletal Musculoskeletal: 1, strength equal bilaterally - Neurologic Neurologic: moves all extremities - Psychiatric Psychiatric: memory intact, appropriate mood/affect, intact judgment & insight Vital Signs - 12hr 12/27/17 12/27/17 12/27/17 01:30 01:46 02:00 Temperature Pulse Rate 90 90 91 H Respiratory 21 26 H 20 Rate Blood Pressure 104/75 104/75 97/70 O2 Sat by Pulse 100 99 96 Oximetry 12/27/17 12/27/17 12/27/17 02:16 02:30 02:46 Temperature Pulse Rate 94 H 92 H 90 Respiratory 27 H 30 H 22 Rate Blood Pressure 97/70 97/70 97/70 O2 Sat by Pulse 100 96 89 Oximetry 12/27/17 12/27/17 12/27/17 03:00 03:16 03:30 Temperature Pulse Rate 92 H 91 H 90 Respiratory 23 19 17 Rate Blood Pressure 98/69 98/69 98/69 O2 Sat by Pulse 100 100 Oximetry 12/27/17 12/27/17 12/27/17 03:46 04:00 04:16 Temperature 98.1 F Pulse Rate 91 H 89 94 H Respiratory 21 18 24 Rate Blood Pressure 98/69 107/75 107/75 O2 Sat by Pulse 100 89 100 Oximetry 12/27/17 12/27/17 12/27/17 04:30 04:46 05:00 Temperature Pulse Rate 94 H 106 H 100 H Respiratory 21 18 34 H Rate Blood Pressure 107/75 107/75 102/70 O2 Sat by Pulse 100 96 90 Oximetry 12/27/17 12/27/17 12/27/17 05:16 05:30 05:46 Temperature Pulse Rate 96 H 96 H 94 H Respiratory 37 H 33 H 34 H Rate Blood Pressure 102/70 102/70 102/70 O2 Sat by Pulse 89 77 L 92 Oximetry 12/27/17 12/27/17 12/27/17 06:00 06:16 06:30 Temperature Pulse Rate 90 95 H 101 H Respiratory 21 38 H 27 H Rate Blood Pressure 99/70 99/70 99/70 O2 Sat by Pulse 88 89 93 Oximetry 12/27/17 12/27/17 12/27/17 06:46 07:00 07:16 Temperature Pulse Rate 90 92 H 93 H Respiratory 27 H 30 H 24 Rate Blood Pressure 99/70 94/67 94/67 O2 Sat by Pulse 94 92 96 Oximetry 12/27/17 12/27/17 12/27/17 07:30 07:46 08:00 Temperature 97.4 F L Pulse Rate 96 H 92 H 97 H Respiratory 36 H 26 H 35 H Rate Blood Pressure 94/67 94/67 104/82 O2 Sat by Pulse 97 99 98 Oximetry 12/27/17 12/27/17 12/27/17 08:16 08:30 08:46 Temperature Pulse Rate 92 H 96 H 99 H Respiratory 22 31 H 26 H Rate Blood Pressure 104/82 104/82 104/82 O2 Sat by Pulse 95 96 100 Oximetry 12/27/17 12/27/17 12/27/17 09:00 09:14 09:18 Temperature 98.2 F 98.2 F Pulse Rate 93 H 94 H 94 H Respiratory 28 H 30 H 30 H Rate Blood Pressure 98/70 104/82 104/82 O2 Sat by Pulse 100 100 Oximetry 12/27/17 12:00 Temperature 97.8 F Pulse Rate Respiratory Rate Blood Pressure O2 Sat by Pulse Oximetry CBC and BMP: 12/27/17 14:25 12/27/17 14:25 ABG, PT/INR, D-dimer: PT/INR, D-dimer PT 17.6 Sec. (12.2-14.9) H 12/26/17 04:20 INR 1.36 (0.87-1.13) H 12/26/17 04:20 Abnormal lab findings: Abnormal Labs 12/23/17 12/23/17 12/23/17 20:00 20:00 20:00 RBC 2.43 L Hgb 6.6 L Hct 21.1 L MCH 27 L MCHC 31 L RDW 18.6 H Lymph % (Auto) 11.0 L [place] % (Auto) 10.5 H Lymph # 0.9 L [place] # 0.9 H Seg Neutrophils % 76.6 H PT INR Sodium 129 L Potassium 3.3 L Chloride 90.9 L BUN 32 H Glucose 116 H POC Glucose Total Bilirubin 3.80 H Direct Bilirubin 2.8 H AST 56 H NT-Pro-B Natriuret Pep Total Protein 6.2 L Albumin 2.6 L Hepatitis C Antibody Crossmatch 12/23/17 12/23/17 12/24/17 20:40 20:56 00:30 RBC Hgb Hct MCH MCHC RDW Lymph % (Auto) [place] % (Auto) Lymph # [place] # Seg Neutrophils % PT 28.3 H INR 2.46 H Sodium Potassium Chloride BUN Glucose POC Glucose Total Bilirubin Direct Bilirubin AST NT-Pro-B Natriuret Pep 4304 H Total Protein Albumin Hepatitis C Antibody Crossmatch See Detail 12/24/17 12/24/17 12/24/17 03:41 05:50 07:45 RBC Hgb 8.4 L 8.1 L Hct 26.3 L 24.5 L MCH MCHC RDW Lymph % (Auto) [place] % (Auto) Lymph # [place] # Seg Neutrophils % PT INR Sodium Potassium Chloride BUN Glucose POC Glucose 144 H Total Bilirubin Direct Bilirubin AST NT-Pro-B Natriuret Pep Total Protein Albumin Hepatitis C Antibody Crossmatch 12/24/17 12/25/17 12/25/17 12:18 04:45 04:45 RBC 2.70 L Hgb 7.5 L Hct 23.1 L MCH MCHC RDW 17.9 H Lymph % (Auto) 4.8 L [place] % (Auto) 13.5 H Lymph # 0.4 L [place] # 1.3 H Seg Neutrophils % 81.5 H PT INR Sodium 136 L D Potassium Chloride BUN Glucose 107 H POC Glucose 111 H Total Bilirubin Direct Bilirubin AST NT-Pro-B Natriuret Pep Total Protein Albumin Hepatitis C Antibody Crossmatch 12/25/17 12/25/17 12/26/17 04:45 04:45 04:20 RBC 3.09 L Hgb 8.6 L Hct 26.8 L MCH MCHC RDW 18.0 H Lymph % (Auto) 6.9 L [place] % (Auto) 10.0 H Lymph # 0.6 L [place] # 0.9 H Seg Neutrophils % 82.1 H PT 18.2 H INR 1.42 H Sodium Potassium Chloride BUN Glucose POC Glucose Total Bilirubin Direct Bilirubin AST NT-Pro-B Natriuret Pep Total Protein Albumin Hepatitis C Antibody Reactive A Crossmatch 12/26/17 04:20 RBC Hgb Hct MCH MCHC RDW Lymph % (Auto) [place] % (Auto) Lymph # [place] # Seg Neutrophils % PT 17.6 H INR 1.36 H Sodium Potassium Chloride BUN Glucose POC Glucose Total Bilirubin Direct Bilirubin AST NT-Pro-B Natriuret Pep Total Protein Albumin Hepatitis C Antibody Crossmatch
[2017-12-27 14:43] LABS: Hematocrit 26.5 % (35.5-45.6); Hemoglobin 8.7 gm/dl (11.8-15.2); Mean Corpuscular HGB Conc 33 % (32-34); Mean Corpuscular Hemoglobin 28 pg (28-32); Mean Corpuscular Volume 85 fl (84-94); Platelet Count 217 K/mm3 (140-440); Red Blood Count 3.11 M/mm3 (3.65-5.03); Red Cell Distribution Width 18.3 % (13.2-15.2)
--- NOTE | 2017-12-27 15:02 | Progress Note ---
Assessment and Plan GI bleed - s/p 3 units PRBC - EGD 12/25 showed two minute possible AVMs in 2nd portion, no active bleeding - colonoscopy postponded as patient back on levophed - plan for coloscopy tomorrow, continue GoLYTELY and nothing by mouth after midnight Hypotension secondary to GI bleed and dehydration - Started Levophed drip from ER, was off but restarted from today Acute blood loss anemia, transfused, monitor H&H Pneumonia, likely aspiration - IV Levaquin, Zosyn, negative blood cultures Chronic CHF, diastolic dysfunction, stable - monitor volume status Hypokalemia, replete and monitor as needed Hepatitis C, need outpt follow up mitral valve stenosis (s/p replacement) - on anticoagulation with xarelto, now on hold for active GI bleed GERD, PPI The high probability of a clinically significant, sudden or life threatening deterioration of the [multiple] system(s) required my full and direct attention , intervention and personal management. The aggregate critical care time was [32 ] minutes. This time is in addition to time spent performing reported procedures but includes the following: [x] Data Review and interpretation [x] Patient assessment and monitoring of vital signs [x] Documentation [x] Medication orders and management Subjective Date of service: 12/27/17 Principal diagnosis: GI bleeding Interval history: Pt seen and examined placed back on levophed since am for low BP Patient was scheduled to have colonoscopy today but now postponed till tomorrow for low BP Objective - Exam Narrative Exam: General appearance: Present: no acute distress - EENT Eyes: PERRL, EOM intact ENT: hearing intact, clear oral mucosa Ears: bilateral: normal - Neck Neck: supple, normal ROM - Respiratory Respiratory effort: normal Respiratory: bilateral: CTA - Cardiovascular Rhythm: regular Heart Sounds: Present: S1 & S2. Absent: gallop, rub Extremities: pulses intact, normal color, Full ROM - Gastrointestinal General gastrointestinal: Present: soft, non-tender, non-distended, normal bowel sounds - Integumentary Integumentary: clear, warm, dry - Musculoskeletal Musculoskeletal: 1, strength equal bilaterally - Neurologic Neurologic: moves all extremities - Psychiatric Psychiatric: memory intact, appropriate mood/affect, intact judgment & insight - Constitutional Vitals: Vital Signs - 12hr 12/27/17 12/27/17 12/27/17 03:16 03:30 03:46 Temperature Pulse Rate 91 H 90 91 H Respiratory 19 17 21 Rate Blood Pressure 98/69 98/69 98/69 O2 Sat by Pulse 100 100 Oximetry 12/27/17 12/27/17 12/27/17 04:00 04:16 04:30 Temperature 98.1 F Pulse Rate 89 94 H 94 H Respiratory 18 24 21 Rate Blood Pressure 107/75 107/75 107/75 O2 Sat by Pulse 89 100 100 Oximetry 12/27/17 12/27/17 12/27/17 04:46 05:00 05:16 Temperature Pulse Rate 106 H 100 H 96 H Respiratory 18 34 H 37 H Rate Blood Pressure 107/75 102/70 102/70 O2 Sat by Pulse 96 90 89 Oximetry 12/27/17 12/27/17 12/27/17 05:30 05:46 06:00 Temperature Pulse Rate 96 H 94 H 90 Respiratory 33 H 34 H 21 Rate Blood Pressure 102/70 102/70 99/70 O2 Sat by Pulse 77 L 92 88 Oximetry 12/27/17 12/27/17 08 06:16 06:30 06:46 Temperature Pulse Rate 95 H 101 H 90 Respiratory 38 H 27 H 27 H Rate Blood Pressure 99/70 99/70 99/70 O2 Sat by Pulse 89 93 94 Oximetry 12/27/17 12/27/17 12/27/17 07:00 07:16 07:30 Temperature Pulse Rate 92 H 93 H 96 H Respiratory 30 H 24 36 H Rate Blood Pressure 94/67 94/67 94/67 O2 Sat by Pulse 92 96 97 Oximetry 12/27/17 12/27/17 12/27/17 07:46 08:00 08:16 Temperature 97.4 F L Pulse Rate 92 H 97 H 92 H Respiratory 26 H 35 H 22 Rate Blood Pressure 94/67 104/82 104/82 O2 Sat by Pulse 99 98 95 Oximetry 12/27/17 12/27/17 12/27/17 08:30 08:46 09:00 Temperature Pulse Rate 96 H 99 H 93 H Respiratory 31 H 26 H 28 H Rate Blood Pressure 104/82 104/82 98/70 O2 Sat by Pulse 96 100 Oximetry 12/27/17 12/27/17 12/27/17 09:14 09:16 09:18 Temperature 98.2 F 98.2 F Pulse Rate 94 H 93 H 94 H Respiratory 30 H 28 H 30 H Rate Blood Pressure 104/82 98/70 104/82 O2 Sat by Pulse 100 97 100 Oximetry 12/27/17 12/27/17 12/27/17 09:30 09:45 10:00 Temperature Pulse Rate 92 H 90 92 H Respiratory 24 17 31 H Rate Blood Pressure 74/44 81/51 94/61 O2 Sat by Pulse 50 L 99 Oximetry 12/27/17 12/27/17 12/27/17 10:15 10:30 10:45 Temperature Pulse Rate 92 H 91 H 92 H Respiratory 18 22 22 Rate Blood Pressure 91/55 87/60 92/61 O2 Sat by Pulse 89 58 L Oximetry 12/27/17 12/27/17 12/27/17 11:00 11:16 11:30 Temperature Pulse Rate 93 H 93 H 93 H Respiratory 20 22 21 Rate Blood Pressure 98/63 93/57 98/65 O2 Sat by Pulse 99 Oximetry 12/27/17 12/27/17 12/27/17 11:45 12:00 12:16 Temperature 97.8 F Pulse Rate 105 H 109 H 107 H Respiratory 29 H 38 H 28 H Rate Blood Pressure 97/68 107/75 96/64 O2 Sat by Pulse 94 98 Oximetry 12/27/17 12/27/17 12/27/17 12:30 12:45 13:00 Temperature Pulse Rate 142 H 104 H 100 H Respiratory 21 32 H 18 Rate Blood Pressure 99/66 96/62 89/55 O2 Sat by Pulse 96 81 L Oximetry 12/27/17 12/27/17 12/27/17 13:15 13:30 13:45 Temperature Pulse Rate 98 H 101 H 103 H Respiratory 17 23 25 H Rate Blood Pressure 97/65 98/72 87/59 O2 Sat by Pulse 96 90 92 Oximetry 12/27/17 14:00 Temperature Pulse Rate 104 H Respiratory 31 H Rate Blood Pressure 100/61 O2 Sat by Pulse 100 Oximetry - Labs CBC & Chem 7: 12/27/17 14:25 12/27/17 14:25 Labs: Abnormal lab results 12/27/17 Range/Units 14:25 RBC 3.11 L (3.65-5.03) M/mm3 Hgb 8.7 L (11.8-15.2) gm/dl Hct 26.5 L (35.5-45.6) % RDW 18.3 H (13.2-15.2) %
[2017-12-27 15:17] LABS: BUN/Creatinine Ratio 13; Blood Urea Nitrogen 10 mg/dL (9-20); Calcium 8.4 mg/dL (8.4-10.2); Hemolysis Index 1
[2017-12-28] MEDS: LEVAQUIN 750MG/150ML 750 MG/150 ML BAG IV SCH ×3 (02:17→02:21)
[2017-12-28] MEDS: ZOSYN/NS 4.5GM/100ML 4.5 GM/100 ML VIAL IV SCH (06:29)
--- NOTE | 2017-12-28 09:44 | Gastroenterology Progress Note ---
Assessment and Plan - Patient Problems (1) Acute blood loss anemia Current Visit: No Status: Acute Plan to address problem: No recurrence of any bleeding. He is off pressors, but remains a poor candidate overall for colonoscopy due to COPD and CHF with borderline hypotension on most days. Will not pursue additional attempt at colonoscopy. He has at least one obvious source, duodenal AVMs. Outpatient pill camera will be planned. May consider outpatient colonoscopy in the future if stabilizes eventually. May cautiously restart anticoagulation, if felt highly important, in a few days. He will have some future risks of bleeding. I will s/o at this point and f/u PRN. Please reconsult as needed. (2) Acute renal insufficiency Current Visit: No Status: Acute (3) Anemia Current Visit: No Status: Acute Subjective Date of service: 12/28/17 Principal diagnosis: GI bleeding Interval history: The patient denies any complaints except feels SOB. Objective - Constitutional Vitals: Temp Pulse Resp BP Pulse Ox 97.6 F 91 H 20 99/76 100 12/28/17 08:00 12/28/17 08:30 12/28/17 08:30 12/28/17 08:30 12/28/17 08:30 General appearance: no acute distress - EENT ENT: hearing intact - Neck Neck: supple, normal ROM - Respiratory Respiratory effort: normal Respiratory: bilateral: CTA - Cardiovascular Rhythm: regular - Gastrointestinal General gastrointestinal: Present: soft, non-tender, non-distended, normal bowel sounds - Neurologic Neurological: alert and oriented x3 - Labs CBC & Chem 7: 12/27/17 14:25 12/27/17 14:25 Labs: Laboratory Results - last 24 hr 12/27/17 12/27/17 14:25 14:25 WBC 9.5 RBC 3.11 L Hgb 8.7 L Hct 26.5 L MCV 85 MCH 28 MCHC 33 RDW 18.3 H Plt Count 217 Sodium 135 L Potassium 3.4 L Chloride 98.8 Carbon Dioxide 25 Anion Gap 15 BUN 10 Creatinine 0.8 Estimated GFR > 60 BUN/Creatinine Ratio 13 Glucose 132 H Calcium 8.4
[2017-12-28] MEDS: PROTONIX PO SCH ×2 (09:46→23:55)
--- NOTE | 2017-12-28 10:08 | XRay Report ---
AP CHEST: HISTORY: Short of breath Mild improvement in pulmonary edema is demonstrated since 12/24/17. Cardiomegaly, small right pleural effusion and moderate to large left pleural effusion appear stable. There are atelectatic changes in both lower lung zones. The upper lung zones remain clear. Right subclavian venous catheter is unchanged terminating in the superior SVC. IMPRESSION: Minimal improvement in CHF.
--- NOTE | 2017-12-28 10:37 | Progress Note ---
Assessment and Plan GI bleed Hypotension secondary to GI bleed and dehydration Acute blood loss anemia Pneumonia, likely aspiration HFpEF--compensated Hypokalemia, Hepatitis C mitral valve stenosis (s/p replacement) GERD Bilateral pleural effusion - s/p 2 units PRBC -get CXR today to evaluate pulmonary parenchyma and pleural effusions - plan for colonoscopy as an outpatient - Antibiotics follow cultures -resume anticoagulation with xarelto for MVR after review of CXR. If he needs thoracentesis then will hold Xarelto and resume it after thoracentesis -2Dechocardiogram -Diuresis -chronic home medications -PPI Subjective Date of service: 12/28/17 Principal diagnosis: GI bleeding Interval history: Pt seen and examined Patient with PMH of COPD, GERD, HTN, PE, hepatitis C, mitral valve stenosis (s/ p replacement), and GI bleeding due to AVMs who presented to ED with c/o vague symptoms. He was found to be hypotensive, H/H 6.6/21.1 with melenotic stool. s/p 2 unit PRBC transfusion, on 2mcg of norepinephrine No hematemesis or hematochezia. Denies CP, SOB, dizziness, abd pain, N/V, or LGI symptoms such as diarrhea or constipation. Takes iron supplement and Xarelto at home (unsure of last dose, patient noted to be a poor historian). Drinks 2-3 beers daily. No previous treatment for hep C. s/p EGD Seen and examined. Vitals, labs, medications, chart reviewed. 24 hour events reviewed. No acute overnight events reported. Colonoscopy as an outpatient per GI. Patient denies any chest pain, has shortness of breath. No fevers or chills. no abdominal pain. No active bleeding Objective - Exam Narrative Exam: General appearance: Present: no acute distress - EENT Eyes: PERRL, EOM intact ENT: hearing intact, clear oral mucosa Ears: bilateral: normal - Neck Neck: supple, normal ROM - Respiratory Respiratory effort: normal Respiratory: bilateral: CTA - Cardiovascular Rhythm: regular Heart Sounds: Present: S1 & S2. Absent: gallop, rub Extremities: pulses intact, normal color, Full ROM - Gastrointestinal General gastrointestinal: Present: soft, non-tender, non-distended, normal bowel sounds - Integumentary Integumentary: clear, warm, dry - Musculoskeletal Musculoskeletal: 1, strength equal bilaterally - Neurologic Neurologic: moves all extremities - Psychiatric Psychiatric: memory intact, appropriate mood/affect, intact judgment & insight Vital Signs - 12hr 12/27/17 12/27/17 12/27/17 22:40 22:45 22:48 Temperature Pulse Rate 100 H 100 H 106 H Pulse Rate [ From Monitor] Respiratory 31 H 30 H 28 H Rate Blood Pressure 107/76 105/75 107/76 O2 Sat by Pulse 97 99 98 Oximetry 12/27/17 12/27/17 12/27/17 23:00 23:07 23:15 Temperature Pulse Rate 108 H 97 H 102 H Pulse Rate [ From Monitor] Respiratory 34 H 23 32 H Rate Blood Pressure 113/77 120/80 102/70 O2 Sat by Pulse 100 99 100 Oximetry 12/27/17 12/27/17 12/28/17 23:30 23:45 00:00 Temperature 97.8 F Pulse Rate 98 H 102 H 98 H Pulse Rate [ From Monitor] Respiratory 25 H 30 H 19 Rate Blood Pressure 108/73 106/70 103/74 O2 Sat by Pulse 99 100 96 Oximetry 12/28/17 12/28/17 12/28/17 00:15 00:30 00:45 Temperature Pulse Rate 94 H 92 H 95 H Pulse Rate [ From Monitor] Respiratory 19 17 25 H Rate Blood Pressure 101/76 100/70 99/72 O2 Sat by Pulse 100 100 100 Oximetry 12/28/17 12/28/17 12/28/17 01:00 01:15 01:30 Temperature Pulse Rate 93 H 97 H 96 H Pulse Rate [ From Monitor] Respiratory 20 30 H 27 H Rate Blood Pressure 105/65 97/65 106/75 O2 Sat by Pulse 99 100 100 Oximetry 12/28/17 12/28/17 12/28/17 01:45 02:00 02:15 Temperature Pulse Rate 91 H 92 H 92 H Pulse Rate [ From Monitor] Respiratory 18 19 24 Rate Blood Pressure 101/65 99/74 101/70 O2 Sat by Pulse 100 100 100 Oximetry 12/28/17 12/28/17 12/28/17 02:30 02:45 03:00 Temperature Pulse Rate 96 H 95 H 97 H Pulse Rate [ From Monitor] Respiratory 28 H 28 H 32 H Rate Blood Pressure 98/72 89/66 103/75 O2 Sat by Pulse 100 100 Oximetry 12/28/17 12/28/17 12/28/17 03:15 03:30 03:45 Temperature Pulse Rate 93 H 94 H 90 Pulse Rate [ From Monitor] Respiratory 22 27 H 20 Rate Blood Pressure 109/80 97/71 100/68 O2 Sat by Pulse 100 89 Oximetry 12/28/17 12/28/17 12/28/17 04:00 04:15 04:30 Temperature 97.0 F L Pulse Rate 95 H 96 H 88 Pulse Rate [ From Monitor] Respiratory 20 29 H 13 Rate Blood Pressure 98/66 91/65 104/71 O2 Sat by Pulse 99 99 98 Oximetry 12/28/17 12/28/17 12/28/17 04:45 05:00 05:15 Temperature Pulse Rate 93 H 100 H 91 H Pulse Rate [ From Monitor] Respiratory 29 H 34 H 22 Rate Blood Pressure 100/70 98/66 94/71 O2 Sat by Pulse 93 100 Oximetry 12/28/17 12/28/17 12/28/17 05:30 05:45 06:00 Temperature Pulse Rate 93 H 96 H 91 H Pulse Rate [ From Monitor] Respiratory 25 H 33 H 20 Rate Blood Pressure 107/76 104/75 98/72 O2 Sat by Pulse 99 99 98 Oximetry 12/28/17 12/28/17 12/28/17 06:15 06:30 06:45 Temperature Pulse Rate 94 H 91 H 93 H Pulse Rate [ From Monitor] Respiratory 30 H 21 19 Rate Blood Pressure 94/61 97/68 109/70 O2 Sat by Pulse 64 L 100 Oximetry 12/28/17 12/28/17 12/28/17 07:00 07:15 07:30 Temperature Pulse Rate 90 89 93 H Pulse Rate [ From Monitor] Respiratory 19 15 34 H Rate Blood Pressure 100/75 99/66 107/74 O2 Sat by Pulse 88 98 100 Oximetry 12/28/17 12/28/17 12/28/17 07:45 08:00 08:15 Temperature 97.6 F Pulse Rate 94 H 92 H 95 H Pulse Rate [ 92 H From Monitor] Respiratory 18 18 25 H Rate Blood Pressure 102/66 105/75 92/69 O2 Sat by Pulse 93 99 100 Oximetry 12/28/17 12/28/17 08:30 10:00 Temperature Pulse Rate 91 H Pulse Rate [ From Monitor] Respiratory 20 Rate Blood Pressure 99/76 O2 Sat by Pulse 100 100 Oximetry CBC and BMP: 12/27/17 14:25 12/27/17 14:25 ABG, PT/INR, D-dimer: PT/INR, D-dimer PT 17.6 Sec. (12.2-14.9) H 12/26/17 04:20 INR 1.36 (0.87-1.13) H 12/26/17 04:20 Abnormal lab findings: Abnormal Labs 12/23/17 12/23/17 12/23/17 20:00 20:00 20:00 RBC 2.43 L Hgb 6.6 L Hct 21.1 L MCH 27 L MCHC 31 L RDW 18.6 H Lymph % (Auto) 11.0 L [place] % (Auto) 10.5 H Lymph # 0.9 L [place] # 0.9 H Seg Neutrophils % 76.6 H PT INR Sodium 129 L Potassium 3.3 L Chloride 90.9 L BUN 32 H Glucose 116 H POC Glucose Total Bilirubin 3.80 H Direct Bilirubin 2.8 H AST 56 H NT-Pro-B Natriuret Pep Total Protein 6.2 L Albumin 2.6 L Hepatitis C Antibody Crossmatch 12/23/17 12/23/17 12/24/17 20:40 20:56 00:30 RBC Hgb Hct MCH MCHC RDW Lymph % (Auto) [place] % (Auto) Lymph # [place] # Seg Neutrophils % PT 28.3 H INR 2.46 H Sodium Potassium Chloride BUN Glucose POC Glucose Total Bilirubin Direct Bilirubin AST NT-Pro-B Natriuret Pep 4304 H Total Protein Albumin Hepatitis C Antibody Crossmatch See Detail 12/24/17 12/24/17 12/24/17 03:41 05:50 07:45 RBC Hgb 8.4 L 8.1 L Hct 26.3 L 24.5 L MCH MCHC RDW Lymph % (Auto) [place] % (Auto) Lymph # [place] # Seg Neutrophils % PT INR Sodium Potassium Chloride BUN Glucose POC Glucose 144 H Total Bilirubin Direct Bilirubin AST NT-Pro-B Natriuret Pep Total Protein Albumin Hepatitis C Antibody Crossmatch 12/24/17 12/25/17 12/25/17 12:18 04:45 04:45 RBC 2.70 L Hgb 7.5 L Hct 23.1 L MCH MCHC RDW 17.9 H Lymph % (Auto) 4.8 L [place] % (Auto) 13.5 H Lymph # 0.4 L [place] # 1.3 H Seg Neutrophils % 81.5 H PT INR Sodium 136 L D Potassium Chloride BUN Glucose 107 H POC Glucose 111 H Total Bilirubin Direct Bilirubin AST NT-Pro-B Natriuret Pep Total Protein Albumin Hepatitis C Antibody Crossmatch 12/25/17 12/25/17 12/26/17 04:45 04:45 04:20 RBC 3.09 L Hgb 8.6 L Hct 26.8 L MCH MCHC RDW 18.0 H Lymph % (Auto) 6.9 L [place] % (Auto) 10.0 H Lymph # 0.6 L [place] # 0.9 H Seg Neutrophils % 82.1 H PT 18.2 H INR 1.42 H Sodium Potassium Chloride BUN Glucose POC Glucose Total Bilirubin Direct Bilirubin AST NT-Pro-B Natriuret Pep Total Protein Albumin Hepatitis C Antibody Reactive A Crossmatch 12/26/17 12/27/17 12/27/17 04:20 14:25 14:25 RBC 3.11 L Hgb 8.7 L Hct 26.5 L MCH MCHC RDW 18.3 H Lymph % (Auto) [place] % (Auto) Lymph # [place] # Seg Neutrophils % PT 17.6 H INR 1.36 H Sodium 135 L Potassium 3.4 L Chloride BUN Glucose 132 H POC Glucose Total Bilirubin Direct Bilirubin AST NT-Pro-B Natriuret Pep Total Protein Albumin Hepatitis C Antibody Crossmatch
--- NOTE | 2017-12-28 11:19 | Progress Note ---
Assessment and Plan GI bleed - s/p 3 units PRBC - EGD 12/25 showed two minute possible AVMs in 2nd portion, no active bleeding - colonoscopy postponded as patient back on levophed intermittently - plan for coloscopy outpt, advance diet as tolerated Hypotension secondary to GI bleed and dehydration - Started Levophed drip from ER, required intermittently - will start on low dose midodrine Acute blood loss anemia, transfused, monitor H&H Pneumonia, likely aspiration - IV Levaquin, Zosyn, negative blood cultures Chronic CHF, diastolic dysfunction, stable - monitor volume status Hypokalemia, replete and monitor as needed Hepatitis C, need outpt follow up mitral valve stenosis (s/p replacement) - on anticoagulation with xarelto, now on hold for active GI bleed - will defer to cardiology for restarting time frame GERD, PPI Subjective Date of service: 12/28/17 Principal diagnosis: GI bleeding Interval history: Pt seen and examined off levophed today tolerating diet Objective - Exam Narrative Exam: General appearance: Present: no acute distress - EENT Eyes: PERRL, EOM intact ENT: hearing intact, clear oral mucosa Ears: bilateral: normal - Neck Neck: supple, normal ROM - Respiratory Respiratory effort: normal Respiratory: bilateral: CTA - Cardiovascular Rhythm: regular Heart Sounds: Present: S1 & S2. Absent: gallop, rub Extremities: pulses intact, normal color, Full ROM - Gastrointestinal General gastrointestinal: Present: soft, non-tender, non-distended, normal bowel sounds - Integumentary Integumentary: clear, warm, dry - Musculoskeletal Musculoskeletal: 1, strength equal bilaterally - Neurologic Neurologic: moves all extremities - Psychiatric Psychiatric: memory intact, appropriate mood/affect, intact judgment & insight - Constitutional Vitals: Vital Signs - 12hr 12/27/17 12/27/17 12/28/17 23:30 23:45 00:00 Temperature 97.8 F Pulse Rate 98 H 102 H 98 H Pulse Rate [ From Monitor] Respiratory 25 H 30 H 19 Rate Blood Pressure 108/73 106/70 103/74 O2 Sat by Pulse 99 100 96 Oximetry 12/28/17 12/28/17 12/28/17 00:15 00:30 00:45 Temperature Pulse Rate 94 H 92 H 95 H Pulse Rate [ From Monitor] Respiratory 19 17 25 H Rate Blood Pressure 101/76 100/70 99/72 O2 Sat by Pulse 100 100 100 Oximetry 12/28/17 12/28/17 12/28/17 01:00 01:15 01:30 Temperature Pulse Rate 93 H 97 H 96 H Pulse Rate [ From Monitor] Respiratory 20 30 H 27 H Rate Blood Pressure 105/65 97/65 106/75 O2 Sat by Pulse 99 100 100 Oximetry 12/28/17 12/28/17 12/28/17 01:45 02:00 02:15 Temperature Pulse Rate 91 H 92 H 92 H Pulse Rate [ From Monitor] Respiratory 18 19 24 Rate Blood Pressure 101/65 99/74 101/70 O2 Sat by Pulse 100 100 100 Oximetry 12/28/17 12/28/17 12/28/17 02:30 02:45 03:00 Temperature Pulse Rate 96 H 95 H 97 H Pulse Rate [ From Monitor] Respiratory 28 H 28 H 32 H Rate Blood Pressure 98/72 89/66 103/75 O2 Sat by Pulse 100 100 Oximetry 12/28/17 12/28/17 12/28/17 03:15 03:30 03:45 Temperature Pulse Rate 93 H 94 H 90 Pulse Rate [ From Monitor] Respiratory 22 27 H 20 Rate Blood Pressure 109/80 97/71 100/68 O2 Sat by Pulse 100 89 Oximetry 12/28/17 12/28/17 12/28/17 04:00 04:15 04:30 Temperature 97.0 F L Pulse Rate 95 H 96 H 88 Pulse Rate [ From Monitor] Respiratory 20 29 H 13 Rate Blood Pressure 98/66 91/65 104/71 O2 Sat by Pulse 99 99 98 Oximetry 12/28/17 12/28/17 12/28/17 04:45 05:00 05:15 Temperature Pulse Rate 93 H 100 H 91 H Pulse Rate [ From Monitor] Respiratory 29 H 34 H 22 Rate Blood Pressure 100/70 98/66 94/71 O2 Sat by Pulse 93 100 Oximetry 12/28/17 12/28/17 12/28/17 05:30 05:45 06:00 Temperature Pulse Rate 93 H 96 H 91 H Pulse Rate [ From Monitor] Respiratory 25 H 33 H 20 Rate Blood Pressure 107/76 104/75 98/72 O2 Sat by Pulse 99 99 98 Oximetry 12/28/17 12/28/17 12/28/17 06:15 06:30 06:45 Temperature Pulse Rate 94 H 91 H 93 H Pulse Rate [ From Monitor] Respiratory 30 H 21 19 Rate Blood Pressure 94/61 97/68 109/70 O2 Sat by Pulse 64 L 100 Oximetry 12/28/17 12/28/17 12/28/17 07:00 07:15 07:30 Temperature Pulse Rate 90 89 93 H Pulse Rate [ From Monitor] Respiratory 19 15 34 H Rate Blood Pressure 100/75 99/66 107/74 O2 Sat by Pulse 88 98 100 Oximetry 12/28/17 12/28/17 12/28/17 07:45 08:00 08:15 Temperature 97.6 F Pulse Rate 94 H 92 H 95 H Pulse Rate [ 92 H From Monitor] Respiratory 18 18 25 H Rate Blood Pressure 102/66 105/75 92/69 O2 Sat by Pulse 93 99 100 Oximetry 12/28/17 12/28/17 08:30 10:00 Temperature Pulse Rate 91 H Pulse Rate [ From Monitor] Respiratory 20 Rate Blood Pressure 99/76 O2 Sat by Pulse 100 100 Oximetry - Labs CBC & Chem 7: 12/27/17 14:25 12/28/17 14:03 Labs: Abnormal lab results 12/27/17 12/27/17 Range/Units 14:25 14:25 RBC 3.11 L (3.65-5.03) M/mm3 Hgb 8.7 L (11.8-15.2) gm/dl Hct 26.5 L (35.5-45.6) % RDW 18.3 H (13.2-15.2) % Sodium 135 L (137-145) mmol/L Potassium 3.4 L (3.6-5.0) mmol/L Glucose 132 H (75-100) mg/dL
[2017-12-28] MEDS ORDERED: K-DUR PO ONE (12:00)
[2017-12-28] MEDS ORDERED: LASIX IV ONE (14:00)
[2017-12-28] MEDS: SODIUM CHLORIDE FLUSH SYRINGE 10 ML IV SCH ×2 (14:04→23:55)
[2017-12-28] MEDS: DUONEB *Not for PRN Use IH SCH ×2 (14:32→20:09)
[2017-12-28 14:50] LABS: BUN/Creatinine Ratio 13; Blood Urea Nitrogen 9 mg/dL (9-20); Calcium 8.4 mg/dL (8.4-10.2); Hemolysis Index 9
[2017-12-28] MEDS: MUCINEX ER PO SCH ×2 (23:53→23:54)
[2017-12-28] MEDS: PROAMATINE PO SCH (23:54)
[2017-12-29] MEDS: LEVAQUIN 750MG/150ML 750 MG/150 ML BAG IV SCH (02:50)
--- NOTE | 2017-12-29 09:09 | Procedure Note ---
Date of procedure: 12/29/17 Pre-op diagnosis: left pleural effusion Post-op diagnosis: same Procedure: US thoracentesis Findings: large left pleural effusion Anesthesia: local Surgeon: FERCHO ARMENTA Estimated blood loss: none Pathology: list (60cc) Specimen disposition: to lab Condition: stable Disposition: floor
--- NOTE | 2017-12-29 09:51 | Ultrasound Report ---
ULTRASOUND THORACENTESIS History: Respiratory failure, bilateral effusions. Description of procedure: Informed consent was obtained. Sterile technique was utilized. Using ultrasound guidance, a 5 [place] centesis needle was advanced into a left pleural effusion. There was spontaneous return of clear yellow fluid. 1500 cc of fluid was aspirated. 60 cc of fluid was sent to lab for analysis. No complications. Impression: Successful ultrasound-guided left thoracentesis.
[2017-12-29] MEDS: DUONEB *Not for PRN Use IH SCH ×3 (10:43→21:11)
[2017-12-29] MEDS: MUCINEX ER PO SCH ×2 (10:48→21:30)
[2017-12-29] MEDS: PROTONIX PO SCH ×2 (10:48→21:31)
[2017-12-29] MEDS: PROAMATINE PO SCH ×4 (10:49→21:31)
[2017-12-29] MEDS: SODIUM CHLORIDE FLUSH SYRINGE 10 ML IV SCH ×2 (10:50→21:30)
--- NOTE | 2017-12-29 11:54 | XRay Report ---
AP CHEST: HISTORY: Short of breath, recent left thoracentesis Recent ultrasound-guided left thoracentesis was performed. Near-complete evacuation of the left pleural effusion is demonstrated. No pneumothorax. Mild cardiomegaly, mild pulmonary venous congestion and small right pleural effusion are unchanged since yesterday's exam. IMPRESSION: Near complete evacuation of the left pleural effusion. No pneumothorax.
[2017-12-29 15:20] LABS: Total Cells Counted 100 /mm3
--- NOTE | 2017-12-29 16:22 | Progress Note ---
Assessment and Plan b/l pleural efusion L>R - s/p thoracentesis drained 1.5 L - will follow pleural fluid study GI bleed - s/p 3 units PRBC - EGD 12/25 showed two minute possible AVMs in 2nd portion, no active bleeding - colonoscopy postponded as patient back on levophed intermittently - plan for coloscopy outpt, advance diet as tolerated Hypotension secondary to GI bleed and dehydration - Started Levophed drip from ER, required intermittently - will cont on low dose midodrine Acute blood loss anemia, transfused, monitor H&H Pneumonia, likely aspiration - IV Levaquin, Zosyn, negative blood cultures Chronic CHF, diastolic dysfunction, stable - monitor volume status, Ef 45-50% Hypokalemia, replete and monitor as needed Hepatitis C, need outpt follow up mitral valve stenosis (s/p replacement) - on anticoagulation with xarelto, now on hold for active GI bleed - will defer to cardiology for restarting time frame GERD, PPI Subjective Date of service: 12/29/17 Principal diagnosis: GI bleeding Interval history: Pt seen and examined s/p thoracenthesis today, toleraTED PROCEDURE WELL denies any SOB Objective - Exam Narrative Exam: General appearance: Present: no acute distress - EENT Eyes: PERRL, EOM intact ENT: hearing intact, clear oral mucosa Ears: bilateral: normal - Neck Neck: supple, normal ROM - Respiratory Respiratory effort: normal Respiratory: bilateral: CTA - Cardiovascular Rhythm: regular Heart Sounds: Present: S1 & S2. Absent: gallop, rub Extremities: pulses intact, normal color, Full ROM - Gastrointestinal General gastrointestinal: Present: soft, non-tender, non-distended, normal bowel sounds - Integumentary Integumentary: clear, warm, dry - Musculoskeletal Musculoskeletal: 1, strength equal bilaterally - Neurologic Neurologic: moves all extremities - Psychiatric Psychiatric: memory intact, appropriate mood/affect, intact judgment & insight - Constitutional Vitals: Vital Signs - 12hr 12/29/17 12/29/17 12/29/17 08:28 10:00 10:48 Temperature 97.9 F Pulse Rate 67 93 H Pulse Rate [ 73 Anterior Bilateral Throughout] Pulse Rate [ 80 Throughout] Respiratory 14 Rate Respiratory 17 Rate [Anterior Bilateral Throughout] Respiratory 18 Rate [ Throughout] Blood Pressure 85/65 O2 Sat by Pulse 72 L 97 Oximetry 12/29/17 12/29/17 11:56 15:09 Temperature 97.8 F Pulse Rate 110 H Pulse Rate [ 84 Anterior Bilateral Throughout] Pulse Rate [ 78 Throughout] Respiratory 16 Rate Respiratory 18 Rate [Anterior Bilateral Throughout] Respiratory 20 Rate [ Throughout] Blood Pressure 87/61 O2 Sat by Pulse 91 Oximetry - Labs CBC & Chem 7: 12/27/17 14:25 12/28/17 14:03
--- NOTE | 2017-12-29 17:36 | Progress Note ---
Subjective Date of service: 12/29/17 Principal diagnosis: GI bleeding Interval history: Patient is seen today for: Seen and examined at bedside; 24-hour events reviewed; nursing and respiratory care staff consulted; no adverse overnight events reported to me; Objective Vital Signs - 12hr 12/29/17 12/29/17 12/29/17 08:28 10:00 10:48 Temperature 97.9 F Pulse Rate 67 93 H Pulse Rate [ 73 Anterior Bilateral Throughout] Pulse Rate [ 80 Throughout] Respiratory 14 Rate Respiratory 17 Rate [Anterior Bilateral Throughout] Respiratory 18 Rate [ Throughout] Blood Pressure 85/65 O2 Sat by Pulse 72 L 97 Oximetry 12/29/17 12/29/17 12/29/17 11:56 15:09 16:29 Temperature 97.8 F 97.9 F Pulse Rate 110 H 107 H Pulse Rate [ 84 Anterior Bilateral Throughout] Pulse Rate [ 78 Throughout] Respiratory 16 14 Rate Respiratory 18 Rate [Anterior Bilateral Throughout] Respiratory 20 Rate [ Throughout] Blood Pressure 87/61 79/59 O2 Sat by Pulse 91 100 Oximetry CBC and BMP: 12/27/17 14:25 12/28/17 14:03 ABG, PT/INR, D-dimer: PT/INR, D-dimer PT 17.6 Sec. (12.2-14.9) H 12/26/17 04:20 INR 1.36 (0.87-1.13) H 12/26/17 04:20 Abnormal lab findings: Abnormal Labs 12/23/17 12/23/17 12/23/17 20:00 20:00 20:00 RBC 2.43 L Hgb 6.6 L Hct 21.1 L MCH 27 L MCHC 31 L RDW 18.6 H Lymph % (Auto) 11.0 L [place] % (Auto) 10.5 H Lymph # 0.9 L [place] # 0.9 H Seg Neutrophils % 76.6 H PT INR Sodium 129 L Potassium 3.3 L Chloride 90.9 L BUN 32 H Creatinine Glucose 116 H POC Glucose Total Bilirubin 3.80 H Direct Bilirubin 2.8 H AST 56 H NT-Pro-B Natriuret Pep Total Protein 6.2 L Albumin 2.6 L Hepatitis C Antibody Crossmatch 12/23/17 12/23/17 12/24/17 20:40 20:56 00:30 RBC Hgb Hct MCH MCHC RDW Lymph % (Auto) [place] % (Auto) Lymph # [place] # Seg Neutrophils % PT 28.3 H INR 2.46 H Sodium Potassium Chloride BUN Creatinine Glucose POC Glucose Total Bilirubin Direct Bilirubin AST NT-Pro-B Natriuret Pep 4304 H Total Protein Albumin Hepatitis C Antibody Crossmatch See Detail 12/24/17 12/24/17 12/24/17 03:41 05:50 07:45 RBC Hgb 8.4 L 8.1 L Hct 26.3 L 24.5 L MCH MCHC RDW Lymph % (Auto) [place] % (Auto) Lymph # [place] # Seg Neutrophils % PT INR Sodium Potassium Chloride BUN Creatinine Glucose POC Glucose 144 H Total Bilirubin Direct Bilirubin AST NT-Pro-B Natriuret Pep Total Protein Albumin Hepatitis C Antibody Crossmatch 12/24/17 12/25/17 12/25/17 12:18 04:45 04:45 RBC 2.70 L Hgb 7.5 L Hct 23.1 L MCH MCHC RDW 17.9 H Lymph % (Auto) 4.8 L [place] % (Auto) 13.5 H Lymph # 0.4 L [place] # 1.3 H Seg Neutrophils % 81.5 H PT INR Sodium 136 L D Potassium Chloride BUN Creatinine Glucose 107 H POC Glucose 111 H Total Bilirubin Direct Bilirubin AST NT-Pro-B Natriuret Pep Total Protein Albumin Hepatitis C Antibody Crossmatch 12/25/17 12/25/17 12/26/17 04:45 04:45 04:20 RBC 3.09 L Hgb 8.6 L Hct 26.8 L MCH MCHC RDW 18.0 H Lymph % (Auto) 6.9 L [place] % (Auto) 10.0 H Lymph # 0.6 L [place] # 0.9 H Seg Neutrophils % 82.1 H PT 18.2 H INR 1.42 H Sodium Potassium Chloride BUN Creatinine Glucose POC Glucose Total Bilirubin Direct Bilirubin AST NT-Pro-B Natriuret Pep Total Protein Albumin Hepatitis C Antibody Reactive A Crossmatch 12/26/17 12/27/17 12/27/17 04:20 14:25 14:25 RBC 3.11 L Hgb 8.7 L Hct 26.5 L MCH MCHC RDW 18.3 H Lymph % (Auto) [place] % (Auto) Lymph # [place] # Seg Neutrophils % PT 17.6 H INR 1.36 H Sodium 135 L Potassium 3.4 L Chloride BUN Creatinine Glucose 132 H POC Glucose Total Bilirubin Direct Bilirubin AST NT-Pro-B Natriuret Pep Total Protein Albumin Hepatitis C Antibody Crossmatch 12/28/17 14:03 RBC Hgb Hct MCH MCHC RDW Lymph % (Auto) [place] % (Auto) Lymph # [place] # Seg Neutrophils % PT INR Sodium 135 L Potassium Chloride BUN Creatinine 0.7 L Glucose POC Glucose Total Bilirubin Direct Bilirubin AST NT-Pro-B Natriuret Pep 5482 H Total Protein Albumin Hepatitis C Antibody Crossmatch
--- NOTE | 2017-12-29 19:42 | Progress Note ---
Assessment and Plan GI bleed Hypotension secondary to GI bleed and dehydration Acute blood loss anemia Pneumonia, likely aspiration HFpEF--compensated Hypokalemia, Hepatitis C mitral valve stenosis (s/p replacement) GERD - follow pleural fluid studies - prn ambien ordered - s/p 2 units PRBC - EGD showed two minute possible AVMs in 2nd portion, no active bleeding - no more plans for colonoscopy - continue empiric Antibiotics and follow cultures - anticoagulation with xarelto for MVR currently on hold - continue chronic home medications - continue PPI therapy - observe closely on telemetry ... re-evaluate in am & prn ... 35' Subjective Date of service: 12/29/17 Principal diagnosis: Acute GI bleeding; Acute Hypoxemic Resp Failure; s/p MVR; CHF; Pulm Edema Interval history: Patient is seen today for: Acute GI bleeding; Acute Hypoxemic Resp Failure; s/p MVR; CHF; Pulm Edema Seen and examined at bedside; 24-hour events reviewed; nursing and respiratory care staff consulted; no adverse overnight events reported to me; s/p thoracentesis; breathing is a little easier; denies acute chest pains; complains of insomnia; No N/V/F/C Objective Vital Signs - 12hr 12/29/17 12/29/17 12/29/17 08:28 10:00 10:48 Temperature 97.9 F Pulse Rate 67 93 H Pulse Rate [ 73 Anterior Bilateral Throughout] Pulse Rate [ 80 Throughout] Respiratory 14 Rate Respiratory 17 Rate [Anterior Bilateral Throughout] Respiratory 18 Rate [ Throughout] Blood Pressure 85/65 O2 Sat by Pulse 72 L 97 Oximetry 12/29/17 12/29/17 12/29/17 11:56 15:09 16:29 Temperature 97.8 F 97.9 F Pulse Rate 110 H 107 H Pulse Rate [ 84 Anterior Bilateral Throughout] Pulse Rate [ 78 Throughout] Respiratory 16 14 Rate Respiratory 18 Rate [Anterior Bilateral Throughout] Respiratory 20 Rate [ Throughout] Blood Pressure 87/61 79/59 O2 Sat by Pulse 91 100 Oximetry Constitutional: alert, appears uncomfortable, other (elderly looking AAM; normocephalic and atraumatic with mildly increased work of breathing) Eyes: non-icteric ENT: oropharynx moist, other (mallampati 2) Neck: supple, no lymphadenopathy, no JVD, other (no thyromegaly) Effort: mildly labored Ascultation: Bilateral: diminished breath sounds (bases), rales Percussion: Bilateral: not dull Cardiovascular: regular rate and rhythm, murmur noted, other (no rubs) Gastrointestinal: normoactive bowel sounds, soft, non-tender, non-distended, other (No HSM) Integumentary: other (poor turgor) Extremities: no cyanosis, pulses normal, no ischemia or petechiae, edema (1+ bilaterally) Neurologic: normal mental status, non-focal exam, pupils equal and round, motor strength normal and Psychiatric: mood appropriate, affect normal CBC and BMP: 12/27/17 14:25 12/28/17 14:03 ABG, PT/INR, D-dimer: PT/INR, D-dimer PT 17.6 Sec. (12.2-14.9) H 12/26/17 04:20 INR 1.36 (0.87-1.13) H 12/26/17 04:20 Abnormal lab findings: Abnormal Labs 12/23/17 12/23/17 12/23/17 20:00 20:00 20:00 RBC 2.43 L Hgb 6.6 L Hct 21.1 L MCH 27 L MCHC 31 L RDW 18.6 H Lymph % (Auto) 11.0 L Brown % (Auto) 10.5 H Lymph # 0.9 L Brown # 0.9 H Seg Neutrophils % 76.6 H PT INR Sodium 129 L Potassium 3.3 L Chloride 90.9 L BUN 32 H Creatinine Glucose 116 H POC Glucose Total Bilirubin 3.80 H Direct Bilirubin 2.8 H AST 56 H NT-Pro-B Natriuret Pep Total Protein 6.2 L Albumin 2.6 L Hepatitis C Antibody Crossmatch 12/23/17 12/23/17 12/24/17 20:40 20:56 00:30 RBC Hgb Hct MCH MCHC RDW Lymph % (Auto) Brown % (Auto) Lymph # Brown # Seg Neutrophils % PT 28.3 H INR 2.46 H Sodium Potassium Chloride BUN Creatinine Glucose POC Glucose Total Bilirubin Direct Bilirubin AST NT-Pro-B Natriuret Pep 4304 H Total Protein Albumin Hepatitis C Antibody Crossmatch See Detail 12/24/17 12/24/17 12/24/17 03:41 05:50 07:45 RBC Hgb 8.4 L 8.1 L Hct 26.3 L 24.5 L MCH MCHC RDW Lymph % (Auto) Brown % (Auto) Lymph # Brown # Seg Neutrophils % PT INR Sodium Potassium Chloride BUN Creatinine Glucose POC Glucose 144 H Total Bilirubin Direct Bilirubin AST NT-Pro-B Natriuret Pep Total Protein Albumin Hepatitis C Antibody Crossmatch 12/24/17 12/25/17 12/25/17 12:18 04:45 04:45 RBC 2.70 L Hgb 7.5 L Hct 23.1 L MCH MCHC RDW 17.9 H Lymph % (Auto) 4.8 L Brown % (Auto) 13.5 H Lymph # 0.4 L Brown # 1.3 H Seg Neutrophils % 81.5 H PT INR Sodium 136 L D Potassium Chloride BUN Creatinine Glucose 107 H POC Glucose 111 H Total Bilirubin Direct Bilirubin AST NT-Pro-B Natriuret Pep Total Protein Albumin Hepatitis C Antibody Crossmatch 12/25/17 12/25/17 12/26/17 04:45 04:45 04:20 RBC 3.09 L Hgb 8.6 L Hct 26.8 L MCH MCHC RDW 18.0 H Lymph % (Auto) 6.9 L Brown % (Auto) 10.0 H Lymph # 0.6 L Brown # 0.9 H Seg Neutrophils % 82.1 H PT 18.2 H INR 1.42 H Sodium Potassium Chloride BUN Creatinine Glucose POC Glucose Total Bilirubin Direct Bilirubin AST NT-Pro-B Natriuret Pep Total Protein Albumin Hepatitis C Antibody Reactive A Crossmatch 12/26/17 12/27/17 12/27/17 04:20 14:25 14:25 RBC 3.11 L Hgb 8.7 L Hct 26.5 L MCH MCHC RDW 18.3 H Lymph % (Auto) Brown % (Auto) Lymph # Brown # Seg Neutrophils % PT 17.6 H INR 1.36 H Sodium 135 L Potassium 3.4 L Chloride BUN Creatinine Glucose 132 H POC Glucose Total Bilirubin Direct Bilirubin AST NT-Pro-B Natriuret Pep Total Protein Albumin Hepatitis C Antibody Crossmatch 12/28/17 14:03 RBC Hgb Hct MCH MCHC RDW Lymph % (Auto) Brown % (Auto) Lymph # Brown # Seg Neutrophils % PT INR Sodium 135 L Potassium Chloride BUN Creatinine 0.7 L Glucose POC Glucose Total Bilirubin Direct Bilirubin AST NT-Pro-B Natriuret Pep 5482 H Total Protein Albumin Hepatitis C Antibody Crossmatch Chest x-ray: image reviewed (no post procedure pneumothorax and improved left pleural effusion post thoracentesis) Allied health notes reviewed: nursing
[2017-12-29] MEDS: AMBIEN PO PRN (21:31)
--- NOTE | 2017-12-30 01:14 | Consultation ---
PULMONARY CRITICAL CARE CONSULTATION This is a late dictation, patient was seen in consult, 12/24/2017. CONSULTING PHYSICIAN: Dr. Garcia. REASON FOR CONSULTATION: Acute GI bleed, hypotension. CHIEF COMPLAINT AND HISTORY OF PRESENT ILLNESS: The patient is a 67-year-old -[place] male, very poor historian. Past medical history most significant for recent admission for a GI bleed. He had just been discharged from the hospital. He was restarted back on his anticoagulation at discharge. He went home and on the day of presentation, he came in complaining of some vague symptoms, shortness of breath, mild substernal pain. Denied any gross hematemesis. He could not really tell how long his symptoms had been going on. He stated that he had been compliant with his medications. Further evaluation in the Emergency Room revealed grossly melanotic-type stools. The patient was also found to be hypotensive. He was admitted for GI bleed and sepsis. We are asked to assist with his care. When I stopped by to see him, he was resting in the room, he had been on a Levophed drip. He denied any again hemoptysis. Denied fevers or chills. Denied any trauma prior to coming back into the hospital. With regards to tobacco use/abuse history, he does have a 40-zxqe-fmgg-year tobacco smoking history and apparently continues to smoke. He is on anticoagulation apparently for mitral valve stenosis and I believe a mitral valve replacement. That really is as much of the history I could elicit from him at that point. PAST MEDICAL HISTORY: Again significant for hypertension; congestive heart failure; gastroesophageal reflux disease; hepatitis C; history of arteriovenous malformations, unclear where those are; and history of GI bleed. PAST SURGICAL HISTORY: He has had mitral valve replacement. MEDICATIONS: He was on at the time I stopped by to see him were reviewed. Pertinent medications included the following: He was on Levaquin 750 mg IV daily. He was on Zofran 4 mg IV q. 8 hours p.r.n. nausea and vomiting. He had received some IV normal saline. Levophed drip was going, I believe, at 5 mcg per minute. ALLERGIES: No known drug allergies. DIET: Thin gentleman. Denies acute weight loss or gain in the preceding few weeks to months. FAMILY AND SOCIAL HISTORY: Lives in the community. He has a 56-ieov-uszw-year tobacco smoking history. He drinks alcohol. Denies illicit drug use or abuse. There is a family history of hypertension. REVIEW OF SYSTEMS: Difficult to obtain secondary to the patient not giving me or answering my questions; however, since he has been in the hospital, no gross hematochezia. He has had some melena-type stools. No gross hematemesis, no hemoptysis, no palpitations. He had some vague chest pain that is better now. Denied any new leg pain or swelling, either unilaterally or bilaterally. He denied polydipsia or polyuria. Attempts to obtain a complete review of systems frustrated by his mental status. Otherwise, they are as in the body of the history above or noncontributory. PHYSICAL EXAMINATION: VITAL SIGNS: At presentation in the Emergency Room, review of the vital signs shows that he was afebrile, temperature 97.9 degrees Fahrenheit, pulse was 106, respiratory rate was as high as 32, blood pressure 83/52, oxygen sats were 96%, inspired oxygen concentration was not recorded. GENERAL: He is elderly looking -[place] male. Normocephalic, atraumatic, talking to me in mostly full sentences, in mild respiratory distress. HEAD, EYES, EARS, NOSE AND THROAT: He is anicteric. No conjunctival erythema. Oropharynx is a Mallampati #2 oropharynx. No obvious bloody exudation in his mouth, oropharynx was moist. No gross jugular venous distention. Grossly, no palpable lymph nodes in the supraclavicular or submandibular lymph node chains. LUNGS: Auscultation of both lung grullon revealed bilateral rales and diminished bibasilar left greater than right air entry. No wheezing. HEART: Heart sounds 1 and 2 are heard at the time of my evaluation, regular rate and rhythm with occasional extrasystoles and a soft systolic murmur. ABDOMEN: Soft, full, bowel sounds are positive. Mild tenderness around the epigastrium. No palpable hepatosplenomegaly. EXTREMITIES: Without overt digital clubbing or cyanosis. He did have trace pedal edema, about 1+ bipedal pitting edema. Dorsalis pedis pulses were palpable bilaterally. SKIN: The skin was of poor turgor without cellulitis or rash. NEUROLOGIC: He moved all 4 extremities. Pupils were equal, round, about 3-4 mm, reactive to light. Extraocular muscle movements were intact. LABORATORY DATA: From my review were as follows: Admission white cell count 8.4 with a hemoglobin of 6.6, hematocrit of 21.1, platelet count of 375. INR was 2.46 at presentation. Serum sodium was 129, potassium 3.3, chloride 91, bicarbonate 22, BUN 32, creatinine 1.2, glucose is 116. Total bilirubin was 3.8, direct bilirubin was 2.8, AST 56. BMP 4304. Hepatitis screen pending. Blood cultures, no growth to date. Radiographic studies have been reviewed. I have also reviewed the radiologist's interpretation. Chest x-ray shows a right, I believe, subclavian line in place with the tip in the SVC. Unable to define the heart borders. He has bilateral pleural effusions, left greater than right, increased interstitial markings with cephalization consistent with pulmonary edema. Median sternotomy wires are in place. No gross pneumothorax, no gross bony fracture that I can see. A CT angiogram was also done at admission, I believe to evaluate his chest pain. There was a suggestion of a possible peripheral pulmonary emboli; however, there was a lot of motion artifact and really equivocal finding. No gross pneumothorax, no gross bony fracture. ASSESSMENT AND PLAN: 1. Acute gastrointestinal bleed, possibly on chronic. 2. Acute blood loss anemia. 3. Acute hypoxemic respiratory failure. 4. Element of medication noncompliance. 5. History of mitral valve replacement, on anticoagulation. 6. Hypotension/sepsis syndrome. 7. Acute pulmonary edema. 8. Bilateral pleural effusions. 9. History of hypertension. 10. Congestive heart failure. 11. History of chronic obstructive pulmonary disease. 12. Gastroesophageal reflux disease. 13. Hepatitis C virus infection. PLAN: Anticoagulation will be on hold until H and H is stabilized. Gentle volume resuscitation has been given, vasopressors will be weaned to keep MAP greater than or equal to over 65 mmHg. Oxygen will be titrated to keep sats greater than or equal to about 90%. A thoracentesis will be done and the fluid will be sent for necessary studies. I will go with a thoracentesis of the larger pleural effusion at the time of the study. Aspiration precautions are being maintained. Tobacco cessation has been strongly counseled. Better medication and healthcare compliance has also been counseled. In light of his history of mitral valve replacement and the need for anticoagulation, I will not pursue the venous thromboembolic workup further. If he is able to be anticoagulated and cleared by the GI Team, then he will get treatment, which should cover any PEs and with the INR of 2.4 or something, I doubt we actually have pulmonary emboli in this gentleman and we will wait until cleared by GI to resume anticoagulation. We will continue empiric Levaquin monotherapy. He is appropriately on GI prophylaxis. Again, Gastroenterology evaluation has been requested. The plan will be to do EGD once he is more stable. Flu and vaccination will be addressed per protocol. Thank you very much for the consult. We will follow along. We will make further recommendations as picture progresses/becomes clearer. He is critically ill on life-sustaining interventions including vasopressors, at risk for further deterioration including . At this time, I spent about 35-40 minutes of critical care time without overlap and excluding any procedural time that may be necessary. JOB# [id number] CAILIN/ISAC
[2017-12-30] MEDS: LEVAQUIN 750MG/150ML 750 MG/150 ML BAG IV SCH (01:52)
[2017-12-30 06:12] LABS: Basophils # (Auto) 0.1 K/mm3 (0.0-0.1); Basophils % (Auto) 0.7 % (0.0-1.8); Eosinophils # (Auto) 0.1 K/mm3 (0.0-0.4); Eosinophils % (Auto) 0.7 % (0.0-4.3); Hematocrit 24.1 % (35.5-45.6); Hemoglobin 7.8 gm/dl (11.8-15.2); Lymphocytes # (Auto) 0.5 K/mm3 (1.2-5.4); Lymphocytes % (Auto) 5.3 % (13.4-35.0); Mean Corpuscular HGB Conc 32 % (32-34); Mean Corpuscular Hemoglobin 27 pg (28-32); Mean Corpuscular Volume 84 fl (84-94); Monocytes % (Auto) 11.2 % (0.0-7.3); Platelet Count 144 K/mm3 (140-440); Red Blood Count 2.85 M/mm3 (3.65-5.03); Red Cell Distribution Width 17.3 % (13.2-15.2)
[2017-12-30 06:37] LABS: Alanine Aminotransferase 16 units/L (7-56); Albumin 2.4 g/dL (3.9-5); BUN/Creatinine Ratio 13; Blood Urea Nitrogen 9 mg/dL (9-20); Calcium 8.1 mg/dL (8.4-10.2); Hemolysis Index 0
[2017-12-30] MEDS: DUONEB *Not for PRN Use IH SCH ×3 (09:45→22:18)
[2017-12-30] MEDS: PROAMATINE PO SCH ×3 (10:24→16:12)
[2017-12-30] MEDS: SODIUM CHLORIDE FLUSH SYRINGE 10 ML IV SCH ×2 (10:25→22:18)
[2017-12-30] MEDS: MUCINEX ER PO SCH ×2 (10:25→22:18)
[2017-12-30] MEDS: PROTONIX PO SCH ×2 (10:25→22:18)
--- NOTE | 2017-12-30 14:13 | Progress Note ---
Assessment and Plan GI bleed Hypotension secondary to GI bleed and dehydration Acute blood loss anemia Pneumonia, likely aspiration HFpEF--compensated Hypokalemia, Hepatitis C mitral valve stenosis (s/p replacement) GERD - pleural fluid studies pending - prn ambien ordered - s/p 2 units PRBC - EGD showed two minute possible AVMs in 2nd portion, no active bleeding - no more plans for colonoscopy - continue empiric Antibiotics and follow cultures - anticoagulation with xarelto for MVR currently on hold - continue chronic home medications - continue PPI therapy - observe closely on telemetry ... re-evaluate in am & prn ... 35' Subjective Date of service: 12/30/17 Principal diagnosis: GI bleeding Interval history: Patient is seen today for: Acute GI bleeding; Acute Hypoxemic Resp Failure; s/p MVR; CHF; Pulm Edema Seen and examined at bedside; 24-hour events reviewed; nursing and respiratory care staff consulted; no adverse overnight events reported to me; s/p thoracentesis; denies acute chest pains or increased SOB; No emesis or overt aspiration; no high grade fevers Objective Vital Signs - 12hr 12/30/17 12/30/17 12/30/17 03:49 06:31 07:49 Temperature 98.0 F 98.0 F 98.3 F Pulse Rate 103 H 95 H Pulse Rate [ Anterior Bilateral Throughout] Respiratory 18 18 16 Rate Respiratory Rate [Anterior Bilateral Throughout] Blood Pressure 81/59 91/64 Blood Pressure 81/59 [Left] O2 Sat by Pulse 97 99 Oximetry 12/30/17 12/30/17 12/30/17 09:42 09:54 10:00 Temperature Pulse Rate 95 H Pulse Rate [ 101 H 103 H Anterior Bilateral Throughout] Respiratory Rate Respiratory 18 18 Rate [Anterior Bilateral Throughout] Blood Pressure Blood Pressure [Left] O2 Sat by Pulse 98 97 Oximetry 12/30/17 12:03 Temperature 98.1 F Pulse Rate 98 H Pulse Rate [ Anterior Bilateral Throughout] Respiratory 16 Rate Respiratory Rate [Anterior Bilateral Throughout] Blood Pressure 92/65 Blood Pressure [Left] O2 Sat by Pulse 100 Oximetry Constitutional: alert, appears uncomfortable, other (elderly looking AAM; normocephalic and atraumatic with mildly increased work of breathing) Eyes: non-icteric ENT: oropharynx moist, other (mallampati 2) Neck: supple, no lymphadenopathy, no JVD, other (no thyromegaly) Effort: mildly labored Ascultation: Bilateral: diminished breath sounds (bases), rales Percussion: Bilateral: not dull Cardiovascular: regular rate and rhythm, murmur noted, other (no rubs) Gastrointestinal: normoactive bowel sounds, soft, non-tender, non-distended, other (No HSM) Integumentary: other (poor turgor) Extremities: no cyanosis, pulses normal, no ischemia or petechiae, edema (1+ bilaterally) Neurologic: normal mental status, non-focal exam, pupils equal and round, motor strength normal and Psychiatric: mood appropriate, affect normal CBC and BMP: 01/04/18 05:12 01/04/18 05:12 ABG, PT/INR, D-dimer: PT/INR, D-dimer PT 17.6 Sec. (12.2-14.9) H 12/26/17 04:20 INR 1.36 (0.87-1.13) H 12/26/17 04:20 Abnormal lab findings: Abnormal Labs 12/23/17 12/23/17 12/23/17 20:00 20:00 20:00 RBC 2.43 L Hgb 6.6 L Hct 21.1 L MCH 27 L MCHC 31 L RDW 18.6 H Lymph % (Auto) 11.0 L [place] % (Auto) 10.5 H Lymph # 0.9 L [place] # 0.9 H Seg Neutrophils % 76.6 H PT INR Sodium 129 L Potassium 3.3 L Chloride 90.9 L BUN 32 H Creatinine Glucose 116 H POC Glucose Calcium Total Bilirubin 3.80 H Direct Bilirubin 2.8 H AST 56 H NT-Pro-B Natriuret Pep Total Protein 6.2 L Albumin 2.6 L Hepatitis C Antibody Crossmatch 12/23/17 12/23/17 12/24/17 20:40 20:56 00:30 RBC Hgb Hct MCH MCHC RDW Lymph % (Auto) [place] % (Auto) Lymph # [place] # Seg Neutrophils % PT 28.3 H INR 2.46 H Sodium Potassium Chloride BUN Creatinine Glucose POC Glucose Calcium Total Bilirubin Direct Bilirubin AST NT-Pro-B Natriuret Pep 4304 H Total Protein Albumin Hepatitis C Antibody Crossmatch See Detail 12/24/17 12/24/17 12/24/17 03:41 05:50 07:45 RBC Hgb 8.4 L 8.1 L Hct 26.3 L 24.5 L MCH MCHC RDW Lymph % (Auto) [place] % (Auto) Lymph # [place] # Seg Neutrophils % PT INR Sodium Potassium Chloride BUN Creatinine Glucose POC Glucose 144 H Calcium Total Bilirubin Direct Bilirubin AST NT-Pro-B Natriuret Pep Total Protein Albumin Hepatitis C Antibody Crossmatch 12/24/17 12/25/17 12/25/17 12:18 04:45 04:45 RBC 2.70 L Hgb 7.5 L Hct 23.1 L MCH MCHC RDW 17.9 H Lymph % (Auto) 4.8 L [place] % (Auto) 13.5 H Lymph # 0.4 L [place] # 1.3 H Seg Neutrophils % 81.5 H PT INR Sodium 136 L D Potassium Chloride BUN Creatinine Glucose 107 H POC Glucose 111 H Calcium Total Bilirubin Direct Bilirubin AST NT-Pro-B Natriuret Pep Total Protein Albumin Hepatitis C Antibody Crossmatch 12/25/17 12/25/17 12/26/17 04:45 04:45 04:20 RBC 3.09 L Hgb 8.6 L Hct 26.8 L MCH MCHC RDW 18.0 H Lymph % (Auto) 6.9 L [place] % (Auto) 10.0 H Lymph # 0.6 L [place]fe # 0.9 H Seg Neutrophils % 82.1 H PT 18.2 H INR 1.42 H Sodium Potassium Chloride BUN Creatinine Glucose POC Glucose Calcium Total Bilirubin Direct Bilirubin AST NT-Pro-B Natriuret Pep Total Protein Albumin Hepatitis C Antibody Reactive A Crossmatch 12/26/17 12/27/17 12/27/17 04:20 14:25 14:25 RBC 3.11 L Hgb 8.7 L Hct 26.5 L MCH MCHC RDW 18.3 H Lymph % (Auto) [place] % (Auto) Lymph # [place] # Seg Neutrophils % PT 17.6 H INR 1.36 H Sodium 135 L Potassium 3.4 L Chloride BUN Creatinine Glucose 132 H POC Glucose Calcium Total Bilirubin Direct Bilirubin AST NT-Pro-B Natriuret Pep Total Protein Albumin Hepatitis C Antibody Crossmatch 12/28/17 12/30/17 12/30/17 14:03 05:50 05:50 RBC 2.85 L Hgb 7.8 L Hct 24.1 L MCH 27 L MCHC RDW 17.3 H Lymph % (Auto) 5.3 L Wolfe % (Auto) 11.2 H Lymph # 0.5 L [place]fe # 1.0 H Seg Neutrophils % 82.1 H PT INR Sodium 135 L 132 L Potassium Chloride 96.7 L BUN Creatinine 0.7 L 0.7 L Glucose POC Glucose Calcium 8.1 L Total Bilirubin 2.60 H Direct Bilirubin AST NT-Pro-B Natriuret Pep 5482 H Total Protein 5.4 L Albumin 2.4 L Hepatitis C Antibody Crossmatch Allied health notes reviewed: nursing
--- NOTE | 2017-12-30 16:27 | Progress Note ---
Assessment and Plan b/l pleural efusion L>R - s/p thoracentesis drained 1.5 L yesterday - will follow pending pleural fluid study GI bleed - s/p 3 units PRBC - EGD 12/25 showed two minute possible AVMs in 2nd portion, no active bleeding - colonoscopy postponded as patient back on levophed intermittently - plan for coloscopy outpt, advance diet as tolerated - follow h/h Hypotension secondary to GI bleed and dehydration - Started Levophed drip from ER, required intermittently - will cont on low dose midodrine Acute blood loss anemia, transfused, monitor H&H Pneumonia, likely aspiration - IV Levaquin, Zosyn, negative blood cultures - stop abx today Chronic CHF, diastolic dysfunction, stable - monitor volume status, Ef 45-50% Hypokalemia, replete and monitor as needed Hepatitis C, need outpt follow up mitral valve stenosis (s/p replacement) - on anticoagulation with xarelto, now on hold for active GI bleed - will defer to cardiology for restarting time frame - cardiology consulted for recommendation GERD, PPI DVT Px - SCD Subjective Date of service: 12/30/17 Principal diagnosis: GI bleeding Interval history: Pt seen and examined denies any SOB, no chest pain PT eval pending Objective - Exam Narrative Exam: General appearance: Present: no acute distress - EENT Eyes: PERRL, EOM intact ENT: hearing intact, clear oral mucosa Ears: bilateral: normal - Neck Neck: supple, normal ROM - Respiratory Respiratory effort: normal Respiratory: bilateral: CTA - Cardiovascular Rhythm: regular Heart Sounds: Present: S1 & S2. Absent: gallop, rub Extremities: pulses intact, normal color, Full ROM - Gastrointestinal General gastrointestinal: Present: soft, non-tender, non-distended, normal bowel sounds - Integumentary Integumentary: clear, warm, dry - Musculoskeletal Musculoskeletal: 1, strength equal bilaterally - Neurologic Neurologic: moves all extremities - Psychiatric Psychiatric: memory intact, appropriate mood/affect, intact judgment & insight - Constitutional Vitals: Vital Signs - 12hr 12/30/17 12/30/17 12/30/17 06:31 07:49 09:42 Temperature 98.0 F 98.3 F Pulse Rate 103 H 95 H Pulse Rate [ 101 H Anterior Bilateral Throughout] Respiratory 18 16 Rate Respiratory 18 Rate [Anterior Bilateral Throughout] Blood Pressure 91/64 Blood Pressure 81/59 [Left] O2 Sat by Pulse 97 99 Oximetry 12/30/17 12/30/17 12/30/17 09:54 10:00 12:03 Temperature 98.1 F Pulse Rate 95 H 98 H Pulse Rate [ 103 H Anterior Bilateral Throughout] Respiratory 16 Rate Respiratory 18 Rate [Anterior Bilateral Throughout] Blood Pressure 92/65 Blood Pressure [Left] O2 Sat by Pulse 98 97 100 Oximetry - Labs CBC & Chem 7: 12/30/17 05:50 12/30/17 05:50 Labs: Abnormal lab results 12/23/17 12/30/17 12/30/17 Range/Units 20:40 05:50 05:50 RBC 2.85 L (3.65-5.03) M/mm3 Hgb 7.8 L (11.8-15.2) gm/dl Hct 24.1 L (35.5-45.6) % MCH 27 L (28-32) pg RDW 17.3 H (13.2-15.2) % Lymph % (Auto) 5.3 L (13.4-35.0) % [place] % (Auto) 11.2 H (0.0-7.3) % Lymph # 0.5 L (1.2-5.4) K/mm3 [place] # 1.0 H (0.0-0.8) K/mm3 Seg Neutrophils % 82.1 H (40.0-70.0) % Sodium 132 L (137-145) mmol/L Chloride 96.7 L (98-107) mmol/L Creatinine 0.7 L (0.8-1.5) mg/dL Calcium 8.1 L (8.4-10.2) mg/dL Total Bilirubin 2.60 H (0.1-1.2) mg/dL Total Protein 5.4 L (6.3-8.2) g/dL Albumin 2.4 L (3.9-5) g/dL Crossmatch See Detail
[2017-12-31 06:13] LABS: Hematocrit 24.2 % (35.5-45.6)
[2017-12-31] MEDS: PROAMATINE PO SCH ×3 (09:12→18:02)
[2017-12-31] MEDS: MUCINEX ER PO SCH ×2 (09:12→21:57)
[2017-12-31] MEDS: PROTONIX PO SCH ×2 (09:12→21:57)
[2017-12-31] MEDS: SODIUM CHLORIDE FLUSH SYRINGE 10 ML IV SCH ×2 (09:13→21:58)
--- NOTE | 2017-12-31 11:49 | Consultation ---
History of Present Illness Consult date: 12/31/17 Requesting physician: RANDAL FERGUSON Consult reason: congestive heart failure, other (anticoagulation) History of present illness: The patient has a history of mitral valve endocarditis for which he underwent bioprosthetic mitral valve replacement in 2004. He also has a history of chronic HFpEF and pulmonary hypertension. In October 2017, after it. Block of follow-up, he was transferred from the [facility] on account of severe bioprosthetic mitral valve stenosis. There is also evidence of severe pulmonary hypertension with RVSP of 70 mmHg. BETY performed at the [facility] reportedly showed "heavy smoke" with concern for possible thrombus. Following evaluation at [facility], he was felt not to be a candidate for transcatheter mitral valve replacement. Coronary angiography performed the same month revealed nonobstructive CAD. He also underwent right heart catheterization which confirmed pulmonary hypertension. Due to suspicion for thrombus on BETY, he was placed on Xarelto. TTE performed in October 2017 reported an ejection fraction of 50-55%,severely dilated RV, moderate to severe mitral stenosis and RVSP of 70 mmHg. He presented to [facility] this time with progressive dyspnea and orthopnea. He also admits to dark stools. Chest x-ray revealed bilateral pleural effusion with pulmonary vascular congestion. Colonoscopy has not been performed due to comorbid issues. Past History Past Medical History: CAD (nonobstructive, documented in October 2017), GERD, hepatitis (C), hypertension, pulmonary embolism, other (GERD, GI bleed, MV endocarditis) Past Surgical History: Other (mitral valve replacement) Social history: smoking, alcohol abuse Family history: no significant family history Medications and Allergies Allergies Allergy/AdvReac Type Severity Reaction Status Date / Time No Known Allergies Allergy Verified 01/23/14 23:59 Home Medications Medication Instructions Recorded Confirmed Last Taken Type Nicotine [Habitrol] 7 mg TD QDAY #30 patch 11/09/17 12/29/17 Unknown Rx Sennosides/Docusate [Senokot S] 2 tab PO QHS PRN #60 tablet 11/09/17 12/28/17 Unknown Rx Ferrous Sulfate [Feosol 325 MG tab] 325 mg PO TID #90 tablet 12/09/17 12/29/17 Unknown Rx Metoprolol [Lopressor TAB] 50 mg PO TID #90 tablet 07/25/18 08/14/18 Unknown Rx Pantoprazole [Protonix TAB] 40 mg PO BID #60 tablet 12/09/17 12/28/17 Unknown Rx Rivaroxaban [Xarelto] 10 mg PO QDAY #30 tab 12/09/17 12/28/17 Unknown Rx Active Meds: Active Medications Acetaminophen (Tylenol) 650 mg PO Q4H PRN PRN Reason: Pain MILD(1-3)/Fever >100.5/ Albuterol/Ipratropium (Duoneb *Not For Prn Use*) 1 ampul IH TIDRT [facility] Last Admin: 12/30/17 22:18 Dose: Not Given Bisacodyl (Dulcolax) 10 mg PO QDAY PRN PRN Reason: Constipation Guaifenesin (Mucinex Er) 600 mg PO BID [facility] Last Admin: 12/31/17 09:12 Dose: 600 mg Midodrine (Proamatine) 5 mg PO TID@0800,1200,1600 [facility] Last Admin: 12/31/17 09:12 Dose: 5 mg Ondansetron HCl (Zofran) 4 mg IV Q8H PRN PRN Reason: Nausea And Vomiting Pantoprazole Sodium (Protonix) 40 mg PO BID [facility] Last Admin: 12/31/17 09:12 Dose: 40 mg Pseudoephedrine HCl (Sudafed) 30 mg PO Q6H PRN PRN Reason: Nasal Congestion Sodium Chloride (Sodium Chloride Flush Syringe 10 Ml) 10 ml IV BID [facility] Last Admin: 12/31/17 09:13 Dose: 10 ml Sodium Chloride (Sodium Chloride Flush Syringe 10 Ml) 10 ml IV PRN PRN PRN Reason: LINE FLUSH Zolpidem Tartrate (Ambien) 5 mg PO QHS PRN PRN Reason: Sleep Last Admin: 12/29/17 21:31 Dose: 5 mg Review of Systems Constitutional: no fever, no chills Ears, nose, mouth and throat: no ear pain, no ear discharge, no sore throat Cardiovascular: orthopnea, shortness of breath, no chest pain Respiratory: dyspnea on exertion, no cough, no hemoptysis Gastrointestinal: no abdominal pain, no nausea, no vomiting, no diarrhea, no constipation Genitourinary Male: no dysuria, no urinary frequency Rectal: no pain, no bleeding Musculoskeletal: no neck stiffness, no neck pain, no myalgias Integumentary: no rash, no pruritis Neurological: no weakness, no parathesias, no headaches Endocrine: no cold intolerance, no heat intolerance Hematologic/Lymphatic: no easy bruising Allergic/Immunologic: no urticaria, no wheezing Physical Examination Vital Signs Last Vital Signs Temp 97.9 F 12/31/17 05:30 Pulse 98 H 12/31/17 05:30 Resp 20 12/31/17 05:30 BP 90/60 12/31/17 05:30 Pulse Ox 93 12/31/17 05:30 General appearance: mild distress HEENT: Positive: EOMI, Normocephaly, Mucus Membranes Moist Neck: Positive: neck supple, trachea midline, JVD/HJR (elevated) Cardiac: Positive: Reg Rate and Rhythm, S1/S2 Lungs: Positive: Decreased Breath Sounds (at bases), Rhonchi Neuro: Positive: Grossly Intact Abdomen: Positive: Soft, Active Bowel Sounds. Negative: Tender Skin: Positive: Clear. Negative: Rash Musculoskeletal: Normal Range of Motion Extremities: Present: +2 Edema (pitting bilateral leg) Results 12/31/17 05:17 12/30/17 05:50 CBC 12/31/17 Range/Units 05:17 Hgb 8.0 L (11.8-15.2) gm/dl Hct 24.2 L (35.5-45.6) % - Imaging and Cardiology EKG: image reviewed EKG interpretations - Telemetry EKG Rhythm: Sinus Tachycardia - EKG Sinus rhythms and dysrhythmias: sinus tachycardia AV and intraventricular conduction: right bundle branch block Assessment and Plan The patient is currently on Xarelto on account of possible thrombus reportedly noted on BETY at the [facility]. However, with severe anemia of uncertain source, he is a high risk candidate for recurrent bleeding. I will request the report of the BETY from the [facility] to understand the specifics of their findings. His mitral valve disease and heart failure will be managed medically given his poor candidacy for intervention. - Patient Problems (1) Acute on chronic diastolic HF (heart failure) Current Visit: Yes Status: Acute (2) Melena Current Visit: Yes Status: Acute (3) Moderate to severe pulmonary hypertension Current Visit: Yes Status: Chronic (4) Pleural effusion Current Visit: Yes Status: Acute (5) Mitral stenosis Current Visit: Yes Status: Chronic (6) History of mitral valve replacement with bioprosthetic valve Current Visit: Yes Status: Chronic (7) Severe anemia Current Visit: Yes Status: Acute (8) Hypotension Current Visit: Yes Status: Acute (9) CAD (coronary artery disease) Current Visit: Yes Status: Chronic Qualifiers: Coronary Disease-Associated Artery/Lesion type: [place] artery
[2017-12-31] MEDS: DUONEB *Not for PRN Use IH SCH ×3 (13:04→20:35)
--- NOTE | 2017-12-31 13:30 | Progress Note ---
Assessment and Plan b/l pleural efusion L>R - s/p thoracentesis drained 1.5 L 12/29/17 - will follow pending pleural fluid study GI bleed - s/p 3 units PRBC - EGD 12/25 showed two minute possible AVMs in 2nd portion, no active bleeding - colonoscopy postponded as patient back on levophed intermittently - plan for coloscopy outpt, advance diet as tolerated - follow h/h Hypotension secondary to GI bleed and dehydration - Started Levophed drip from ER, required intermittently - will cont on low dose midodrine Acute blood loss anemia, transfused, monitor H&H Pneumonia, likely aspiration - treated with IV Levaquin, Zosyn, negative blood cultures - stop abx 12/30/17 Chronic CHF, diastolic dysfunction, stable - monitor volume status, Ef 45-50% Hypokalemia, replete and monitor as needed Hepatitis C, need outpt follow up mitral valve stenosis (s/p replacement) - on anticoagulation with xarelto, now on hold for active GI bleed - will defer to cardiology for restarting time frame - cardiology consulted for recommendation GERD, PPI DVT Px - SCD Disposition: PT consulted, final recommendation pending Subjective Date of service: 12/31/17 Principal diagnosis: GI bleeding Interval history: Pt seen and examined denies any SOB, no chest pain PT eval pending Objective - Exam Narrative Exam: General appearance: Present: no acute distress - EENT Eyes: PERRL, EOM intact ENT: hearing intact, clear oral mucosa Ears: bilateral: normal - Neck Neck: supple, normal ROM - Respiratory Respiratory effort: normal Respiratory: bilateral: CTA - Cardiovascular Rhythm: regular Heart Sounds: Present: S1 & S2. Absent: gallop, rub Extremities: pulses intact, normal color, Full ROM - Gastrointestinal General gastrointestinal: Present: soft, non-tender, non-distended, normal bowel sounds - Integumentary Integumentary: clear, warm, dry - Musculoskeletal Musculoskeletal: 1, strength equal bilaterally - Neurologic Neurologic: moves all extremities - Psychiatric Psychiatric: memory intact, appropriate mood/affect, intact judgment & insight - Constitutional Vitals: Vital Signs - 12hr 12/31/17 12/31/17 12/31/17 05:30 09:30 09:40 Temperature 97.9 F Pulse Rate 98 H Pulse Rate [ 105 H 108 H Anterior Bilateral Throughout] Respiratory 20 Rate Respiratory 19 20 Rate [Anterior Bilateral Throughout] Blood Pressure 90/60 O2 Sat by Pulse 93 97 Oximetry - Labs CBC & Chem 7: 12/31/17 05:17 12/30/17 05:50 Labs: Abnormal lab results 12/31/17 Range/Units 05:17 Hgb 8.0 L (11.8-15.2) gm/dl Hct 24.2 L (35.5-45.6) %
--- NOTE | 2017-12-31 19:01 | Progress Note ---
Assessment and Plan Patient alert, awake. Weak. Resting on 3 litres O2.O2 saturation 98%. Denies shortness of breath or cough or chest pain. - Patient Problems (1) Acute on chronic diastolic HF (heart failure) Current Visit: Yes Status: Acute Plan to address problem: Mangement as per cardiology. (2) Pleural effusion Current Visit: Yes Status: Acute Plan to address problem: Undergone thoracentesis. Pleural fluid Cell count 30, RBC 355. Other pleural fluid results pending. (3) Hypotension Current Visit: Yes Status: Acute (4) UGIB (upper gastrointestinal bleed) Current Visit: Yes Status: Acute Plan to address problem: Management as per [employer]. (5) Acute blood loss anemia Current Visit: No Status: Acute Plan to address problem: Management as per primary care. (6) CAD (coronary artery disease) Current Visit: Yes Status: Chronic Qualifiers: Coronary Disease-Associated Artery/Lesion type: [place] artery Plan to address problem: Management as per cardiology. (7) History of mitral valve replacement with bioprosthetic valve Current Visit: Yes Status: Chronic Plan to address problem: Management as per cardiology. (8) Moderate to severe pulmonary hypertension Current Visit: Yes Status: Chronic Plan to address problem: Likely secondary to cardiac problems. Also need pulmonary work up as out patient Like PFTs etc. Subjective Date of service: 12/31/17 Principal diagnosis: GI bleeding Interval history: Patient alert, awake. Weak. Resting on 3 litres O2.O2 saturation 98%. Denies shortness of breath or cough or chest pain. Objective Vital Signs - 12hr 12/31/17 12/31/17 12/31/17 08:45 09:30 09:40 Temperature 97.5 F L Pulse Rate 97 H Pulse Rate [ 105 H 108 H Anterior Bilateral Throughout] Respiratory 16 Rate Respiratory 19 20 Rate [Anterior Bilateral Throughout] Blood Pressure 94/62 O2 Sat by Pulse 96 97 Oximetry 12/31/17 12/31/17 12/31/17 10:00 11:58 15:12 Temperature 97.9 F Pulse Rate 92 H 106 H Pulse Rate [ 106 H Anterior Bilateral Throughout] Respiratory 18 Rate Respiratory 18 Rate [Anterior Bilateral Throughout] Blood Pressure 97/68 O2 Sat by Pulse 98 Oximetry 12/31/17 12/31/17 15:21 16:56 Temperature 98.0 F Pulse Rate 102 H Pulse Rate [ 107 H Anterior Bilateral Throughout] Respiratory 20 Rate Respiratory 19 Rate [Anterior Bilateral Throughout] Blood Pressure 99/69 O2 Sat by Pulse 99 Oximetry Constitutional: no acute distress, alert Eyes: non-icteric ENT: oropharynx moist, other (mallampati 2) Neck: supple, no lymphadenopathy, no JVD, other (no thyromegaly) Effort: mildly labored Ascultation: Bilateral: diminished breath sounds (bases), rales Percussion: Bilateral: not dull Cardiovascular: regular rate and rhythm, murmur noted, other (no rubs) Gastrointestinal: normoactive bowel sounds, soft, non-tender, non-distended, other (No HSM) Integumentary: other (poor turgor) Extremities: no cyanosis, pulses normal, no ischemia or petechiae, edema (1+ bilaterally) Neurologic: normal mental status, non-focal exam, pupils equal and round, motor strength normal and Psychiatric: mood appropriate, affect normal CBC and BMP: 12/31/17 05:17 12/30/17 05:50 ABG, PT/INR, D-dimer: PT/INR, D-dimer PT 17.6 Sec. (12.2-14.9) H 12/26/17 04:20 INR 1.36 (0.87-1.13) H 12/26/17 04:20 Abnormal lab findings: Abnormal Labs 12/23/17 12/23/17 12/23/17 20:00 20:00 20:00 RBC 2.43 L Hgb 6.6 L Hct 21.1 L MCH 27 L MCHC 31 L RDW 18.6 H Lymph % (Auto) 11.0 L Burke % (Auto) 10.5 H Lymph # 0.9 L Burke # 0.9 H Seg Neutrophils % 76.6 H PT INR Sodium 129 L Potassium 3.3 L Chloride 90.9 L BUN 32 H Creatinine Glucose 116 H POC Glucose Calcium Total Bilirubin 3.80 H Direct Bilirubin 2.8 H AST 56 H NT-Pro-B Natriuret Pep Total Protein 6.2 L Albumin 2.6 L Hepatitis C Antibody Crossmatch 12/23/17 12/23/17 12/24/17 20:40 20:56 00:30 RBC Hgb Hct MCH MCHC RDW Lymph % (Auto) Burke % (Auto) Lymph # Burke # Seg Neutrophils % PT 28.3 H INR 2.46 H Sodium Potassium Chloride BUN Creatinine Glucose POC Glucose Calcium Total Bilirubin Direct Bilirubin AST NT-Pro-B Natriuret Pep 4304 H Total Protein Albumin Hepatitis C Antibody Crossmatch See Detail 12/24/17 12/24/17 12/24/17 03:41 05:50 07:45 RBC Hgb 8.4 L 8.1 L Hct 26.3 L 24.5 L MCH MCHC RDW Lymph % (Auto) Burke % (Auto) Lymph # Burke # Seg Neutrophils % PT INR Sodium Potassium Chloride BUN Creatinine Glucose POC Glucose 144 H Calcium Total Bilirubin Direct Bilirubin AST NT-Pro-B Natriuret Pep Total Protein Albumin Hepatitis C Antibody Crossmatch 12/24/17 12/25/17 12/25/17 12:18 04:45 04:45 RBC 2.70 L Hgb 7.5 L Hct 23.1 L MCH MCHC RDW 17.9 H Lymph % (Auto) 4.8 L Burke % (Auto) 13.5 H Lymph # 0.4 L Burke # 1.3 H Seg Neutrophils % 81.5 H PT INR Sodium 136 L D Potassium Chloride BUN Creatinine Glucose 107 H POC Glucose 111 H Calcium Total Bilirubin Direct Bilirubin AST NT-Pro-B Natriuret Pep Total Protein Albumin Hepatitis C Antibody Crossmatch 12/25/17 12/25/17 12/26/17 04:45 04:45 04:20 RBC 3.09 L Hgb 8.6 L Hct 26.8 L MCH MCHC RDW 18.0 H Lymph % (Auto) 6.9 L Burke % (Auto) 10.0 H Lymph # 0.6 L Burke # 0.9 H Seg Neutrophils % 82.1 H PT 18.2 H INR 1.42 H Sodium Potassium Chloride BUN Creatinine Glucose POC Glucose Calcium Total Bilirubin Direct Bilirubin AST NT-Pro-B Natriuret Pep Total Protein Albumin Hepatitis C Antibody Reactive A Crossmatch 12/26/17 12/27/17 12/27/17 04:20 14:25 14:25 RBC 3.11 L Hgb 8.7 L Hct 26.5 L MCH MCHC RDW 18.3 H Lymph % (Auto) Burke % (Auto) Lymph # Burke # Seg Neutrophils % PT 17.6 H INR 1.36 H Sodium 135 L Potassium 3.4 L Chloride BUN Creatinine Glucose 132 H POC Glucose Calcium Total Bilirubin Direct Bilirubin AST NT-Pro-B Natriuret Pep Total Protein Albumin Hepatitis C Antibody Crossmatch 12/28/17 12/30/17 12/30/17 14:03 05:50 05:50 RBC 2.85 L Hgb 7.8 L Hct 24.1 L MCH 27 L MCHC RDW 17.3 H Lymph % (Auto) 5.3 L Burke % (Auto) 11.2 H Lymph # 0.5 L Burke # 1.0 H Seg Neutrophils % 82.1 H PT INR Sodium 135 L 132 L Potassium Chloride 96.7 L BUN Creatinine 0.7 L 0.7 L Glucose POC Glucose Calcium 8.1 L Total Bilirubin 2.60 H Direct Bilirubin AST NT-Pro-B Natriuret Pep 5482 H Total Protein 5.4 L Albumin 2.4 L Hepatitis C Antibody Crossmatch 12/31/17 05:17 RBC Hgb 8.0 L Hct 24.2 L MCH MCHC RDW Lymph % (Auto) Burke % (Auto) Lymph # Burke # Seg Neutrophils % PT INR Sodium Potassium Chloride BUN Creatinine Glucose POC Glucose Calcium Total Bilirubin Direct Bilirubin AST NT-Pro-B Natriuret Pep Total Protein Albumin Hepatitis C Antibody Crossmatch Allied health notes reviewed: nursing
[2018-01-01] MEDS: DUONEB *Not for PRN Use IH SCH ×3 (07:58→21:30)
[2018-01-01] MEDS: PROAMATINE PO SCH ×4 (08:42→16:30)
[2018-01-01] MEDS: PROTONIX PO SCH ×3 (08:43→22:10)
[2018-01-01] MEDS: MUCINEX ER PO SCH ×3 (08:43→22:10)
[2018-01-01] MEDS: SODIUM CHLORIDE FLUSH SYRINGE 10 ML IV SCH ×3 (08:43→22:10)
--- NOTE | 2018-01-01 11:19 | Progress Note ---
Assessment and Plan Continue current management. Await report of the BETY from the [facility]. The patient has been seen in conjunction with Dr. Franz who agrees with the assessment and plan of care. - Patient Problems (1) Acute on chronic diastolic HF (heart failure) Current Visit: Yes Status: Acute (2) Melena Current Visit: Yes Status: Acute (3) Moderate to severe pulmonary hypertension Current Visit: Yes Status: Chronic (4) Pleural effusion Current Visit: Yes Status: Acute (5) Mitral stenosis Current Visit: Yes Status: Chronic (6) History of mitral valve replacement with bioprosthetic valve Current Visit: Yes Status: Chronic (7) Severe anemia Current Visit: Yes Status: Acute (8) Hypotension Current Visit: Yes Status: Acute (9) CAD (coronary artery disease) Current Visit: Yes Status: Chronic Qualifiers: Coronary Disease-Associated Artery/Lesion type: [place] artery Subjective Date of service: 01/01/18 Principal diagnosis: GI bleeding Interval history: The patient is resting in bed. Feels about the same, still somewhat short of breath. Sinus tach on the monitor with HR 100s. Objective Last Vital Signs Temp 98.7 F 01/01/18 06:13 Pulse 109 H 01/01/18 08:08 Resp 20 01/01/18 08:08 BP 92/68 01/01/18 06:13 Pulse Ox 96 01/01/18 07:58 - Physical Examination General: No Apparent Distress HEENT: Positive: EOMI, Normocephaly, Mucus Membranes Moist Neck: Positive: neck supple, trachea midline, JVD/HJR (elevated) Cardiac: Positive: Reg Rate and Rhythm, S1/S2 Lungs: Positive: clear to auscultation Neuro: Positive: Grossly Intact Abdomen: Positive: Soft, Active Bowel Sounds. Negative: Tender Skin: Positive: Clear. Negative: Rash Musculoskeletal: Normal Range of Motion Extremities: Present: +2 Edema (pitting bilateral leg) - Imaging and Cardiology EKG: image reviewed Echo: report reviewed - Telemetry EKG Rhythm: Sinus Tachycardia - EKG Sinus rhythms and dysrhythmias: sinus tachycardia AV and intraventricular conduction: right bundle branch block - Allied health notes Allied health notes reviewed: nursing
--- NOTE | 2018-01-01 12:52 | Progress Note ---
Assessment and Plan b/l pleural efusion L>R - s/p thoracentesis drained 1.5 L 12/29/17 GI bleed - s/p 3 units PRBC - EGD 12/25 showed two minute possible AVMs in 2nd portion, no active bleeding - colonoscopy postponded as patient back on levophed intermittently - plan for coloscopy outpt, advance diet as tolerated - follow h/h Hypotension secondary to GI bleed and dehydration - Started Levophed drip from ER, required intermittently - will cont on low dose midodrine Acute blood loss anemia, transfused, monitor H&H Pneumonia, likely aspiration - treated with IV Levaquin, Zosyn, negative blood cultures - stop abx 12/30/17 Chronic CHF, diastolic dysfunction, stable - monitor volume status, Ef 45-50% Hypokalemia, replete and monitor as needed Hepatitis C, need outpt follow up mitral valve stenosis (s/p replacement) with possible LV thrombus - on anticoagulation with xarelto, now on hold for active GI bleed - will defer to cardiology for restarting time frame - cardiology consulted for recommendation, Still awaiting BETY report from the [facility] GERD, PPI DVT Px - SCD Disposition: PT consulted, final recommendation pending Subjective Date of service: 01/01/18 Principal diagnosis: GI bleeding Interval history: Pt seen and examined denies any SOB, no chest pain PT recommendation pending Objective - Exam Narrative Exam: General appearance: Present: no acute distress - EENT Eyes: PERRL, EOM intact ENT: hearing intact, clear oral mucosa Ears: bilateral: normal - Neck Neck: supple, normal ROM - Respiratory Respiratory effort: normal Respiratory: bilateral: CTA - Cardiovascular Rhythm: regular Heart Sounds: Present: S1 & S2. Absent: gallop, rub Extremities: pulses intact, normal color, Full ROM - Gastrointestinal General gastrointestinal: Present: soft, non-tender, non-distended, normal bowel sounds - Integumentary Integumentary: clear, warm, dry - Musculoskeletal Musculoskeletal: 1, strength equal bilaterally - Neurologic Neurologic: moves all extremities - Psychiatric Psychiatric: memory intact, appropriate mood/affect, intact judgment & insight - Constitutional Vitals: Vital Signs - 12hr 01/01/18 01/01/18 01/01/18 01:04 06:13 07:58 Temperature 98.2 F 98.7 F Pulse Rate 108 H 107 H Pulse Rate [ 106 H Anterior Bilateral Throughout] Respiratory 18 20 Rate Respiratory 20 Rate [Anterior Bilateral Throughout] Respiratory Rate [denies pain] Blood Pressure 92/68 92/68 [Left] O2 Sat by Pulse 99 95 96 Oximetry 01/01/18 01/01/18 08:08 10:00 Temperature Pulse Rate 106 H Pulse Rate [ 109 H Anterior Bilateral Throughout] Respiratory 20 Rate Respiratory 20 Rate [Anterior Bilateral Throughout] Respiratory 20 Rate [denies pain] Blood Pressure [Left] O2 Sat by Pulse Oximetry - Labs CBC & Chem 7: 12/31/17 05:17 12/30/17 05:50
--- NOTE | 2018-01-01 19:28 | Progress Note ---
Assessment and Plan Patient alert, awake. Weak. Resting on 3 litres O2.O2 saturation 98%. Denies shortness of breath or cough or chest pain. - Patient Problems (1) Acute on chronic diastolic HF (heart failure) Current Visit: Yes Status: Acute Plan to address problem: Mangement as per cardiology. (2) Pleural effusion Current Visit: Yes Status: Acute Plan to address problem: Undergone thoracentesis. Pleural fluid Cell count 30, RBC 355. Other pleural fluid results pending. (3) Hypotension Current Visit: Yes Status: Acute Plan to address problem: Improved . Blood pressure 94/68 (4) UGIB (upper gastrointestinal bleed) Current Visit: Yes Status: Acute Plan to address problem: Management as per Book Or [employer] Editor. (5) Acute blood loss anemia Current Visit: No Status: Acute Plan to address problem: Management as per primary care. (6) CAD (coronary artery disease) Current Visit: Yes Status: Chronic Qualifiers: Coronary Disease-Associated Artery/Lesion type: [place] artery Plan to address problem: Management as per cardiology. (7) History of mitral valve replacement with bioprosthetic valve Current Visit: Yes Status: Chronic Plan to address problem: Management as per cardiology. (8) Moderate to severe pulmonary hypertension Current Visit: Yes Status: Chronic Plan to address problem: Likely secondary to cardiac problems. Also need pulmonary work up as out patient Like PFTs etc. Subjective Date of service: 01/01/18 Principal diagnosis: GI bleeding Interval history: Patient alert, awake. Weak. Resting on 3 litres O2.O2 saturation 98%. Denies shortness of breath or cough or chest pain. Objective Vital Signs - 12hr 01/01/18 01/01/18 01/01/18 07:58 08:08 10:00 Temperature Pulse Rate 106 H Pulse Rate [ 106 H 109 H Anterior Bilateral Throughout] Respiratory 20 Rate Respiratory 20 20 Rate [Anterior Bilateral Throughout] Respiratory 20 Rate [denies pain] Blood Pressure [Right] O2 Sat by Pulse 96 Oximetry 01/01/18 01/01/18 01/01/18 13:48 13:58 16:49 Temperature 98.2 F Pulse Rate 114 H Pulse Rate [ 115 H 117 H Anterior Bilateral Throughout] Respiratory 18 Rate Respiratory 20 20 Rate [Anterior Bilateral Throughout] Respiratory Rate [denies pain] Blood Pressure 94/68 [Right] O2 Sat by Pulse 98 Oximetry Constitutional: no acute distress, alert Eyes: non-icteric ENT: oropharynx moist, other (mallampati 2) Neck: supple, no lymphadenopathy, no JVD, other (no thyromegaly) Effort: mildly labored Ascultation: Bilateral: diminished breath sounds (bases), rales Percussion: Bilateral: not dull Cardiovascular: regular rate and rhythm, murmur noted, other (no rubs) Gastrointestinal: normoactive bowel sounds, soft, non-tender, non-distended, other (No HSM) Integumentary: other (poor turgor) Extremities: no cyanosis, pulses normal, no ischemia or petechiae, edema (1+ bilaterally) Neurologic: normal mental status, non-focal exam, pupils equal and round, motor strength normal and Psychiatric: mood appropriate, affect normal CBC and BMP: 12/31/17 05:17 12/30/17 05:50 ABG, PT/INR, D-dimer: PT/INR, D-dimer PT 17.6 Sec. (12.2-14.9) H 12/26/17 04:20 INR 1.36 (0.87-1.13) H 12/26/17 04:20 Abnormal lab findings: Abnormal Labs 12/23/17 12/23/17 12/23/17 20:00 20:00 20:00 RBC 2.43 L Hgb 6.6 L Hct 21.1 L MCH 27 L MCHC 31 L RDW 18.6 H Lymph % (Auto) 11.0 L [place] % (Auto) 10.5 H Lymph # 0.9 L [place] # 0.9 H Seg Neutrophils % 76.6 H PT INR Sodium 129 L Potassium 3.3 L Chloride 90.9 L BUN 32 H Creatinine Glucose 116 H POC Glucose Calcium Total Bilirubin 3.80 H Direct Bilirubin 2.8 H AST 56 H NT-Pro-B Natriuret Pep Total Protein 6.2 L Albumin 2.6 L Hepatitis C Antibody Crossmatch 12/23/17 12/23/17 12/24/17 20:40 20:56 00:30 RBC Hgb Hct MCH MCHC RDW Lymph % (Auto) [place] % (Auto) Lymph # [place] # Seg Neutrophils % PT 28.3 H INR 2.46 H Sodium Potassium Chloride BUN Creatinine Glucose POC Glucose Calcium Total Bilirubin Direct Bilirubin AST NT-Pro-B Natriuret Pep 4304 H Total Protein Albumin Hepatitis C Antibody Crossmatch See Detail 12/24/17 12/24/17 12/24/17 03:41 05:50 07:45 RBC Hgb 8.4 L 8.1 L Hct 26.3 L 24.5 L MCH MCHC RDW Lymph % (Auto) [place] % (Auto) Lymph # [place] # Seg Neutrophils % PT INR Sodium Potassium Chloride BUN Creatinine Glucose POC Glucose 144 H Calcium Total Bilirubin Direct Bilirubin AST NT-Pro-B Natriuret Pep Total Protein Albumin Hepatitis C Antibody Crossmatch 12/24/17 12/25/17 12/25/17 12:18 04:45 04:45 RBC 2.70 L Hgb 7.5 L Hct 23.1 L MCH MCHC RDW 17.9 H Lymph % (Auto) 4.8 L [place] % (Auto) 13.5 H Lymph # 0.4 L [place] # 1.3 H Seg Neutrophils % 81.5 H PT INR Sodium 136 L D Potassium Chloride BUN Creatinine Glucose 107 H POC Glucose 111 H Calcium Total Bilirubin Direct Bilirubin AST NT-Pro-B Natriuret Pep Total Protein Albumin Hepatitis C Antibody Crossmatch 12/25/17 12/25/17 12/26/17 04:45 04:45 04:20 RBC 3.09 L Hgb 8.6 L Hct 26.8 L MCH MCHC RDW 18.0 H Lymph % (Auto) 6.9 L [place] % (Auto) 10.0 H Lymph # 0.6 L [place] # 0.9 H Seg Neutrophils % 82.1 H PT 18.2 H INR 1.42 H Sodium Potassium Chloride BUN Creatinine Glucose POC Glucose Calcium Total Bilirubin Direct Bilirubin AST NT-Pro-B Natriuret Pep Total Protein Albumin Hepatitis C Antibody Reactive A Crossmatch 12/26/17 12/27/17 12/27/17 04:20 14:25 14:25 RBC 3.11 L Hgb 8.7 L Hct 26.5 L MCH MCHC RDW 18.3 H Lymph % (Auto) [place] % (Auto) Lymph # [place] # Seg Neutrophils % PT 17.6 H INR 1.36 H Sodium 135 L Potassium 3.4 L Chloride BUN Creatinine Glucose 132 H POC Glucose Calcium Total Bilirubin Direct Bilirubin AST NT-Pro-B Natriuret Pep Total Protein Albumin Hepatitis C Antibody Crossmatch 12/28/17 12/30/17 12/30/17 14:03 05:50 05:50 RBC 2.85 L Hgb 7.8 L Hct 24.1 L MCH 27 L MCHC RDW 17.3 H Lymph % (Auto) 5.3 L [place] % (Auto) 11.2 H Lymph # 0.5 L [place] # 1.0 H Seg Neutrophils % 82.1 H PT INR Sodium 135 L 132 L Potassium Chloride 96.7 L BUN Creatinine 0.7 L 0.7 L Glucose POC Glucose Calcium 8.1 L Total Bilirubin 2.60 H Direct Bilirubin AST NT-Pro-B Natriuret Pep 5482 H Total Protein 5.4 L Albumin 2.4 L Hepatitis C Antibody Crossmatch 12/31/17 05:17 RBC Hgb 8.0 L Hct 24.2 L MCH MCHC RDW Lymph % (Auto) [place] % (Auto) Lymph # [place] # Seg Neutrophils % PT INR Sodium Potassium Chloride BUN Creatinine Glucose POC Glucose Calcium Total Bilirubin Direct Bilirubin AST NT-Pro-B Natriuret Pep Total Protein Albumin Hepatitis C Antibody Crossmatch Allied health notes reviewed: nursing
[2018-01-01] MEDS: SUDAFED PO PRN (22:10)
[2018-01-02] MEDS: PROAMATINE PO SCH ×3 (08:48→16:44)
[2018-01-02] MEDS: DUONEB *Not for PRN Use IH SCH ×3 (08:51→21:31)
[2018-01-02] MEDS: MUCINEX ER PO SCH ×2 (09:44→21:47)
[2018-01-02] MEDS: PROTONIX PO SCH ×2 (09:45→21:48)
[2018-01-02] MEDS: SODIUM CHLORIDE FLUSH SYRINGE 10 ML IV SCH ×2 (09:46→21:48)
--- NOTE | 2018-01-02 11:45 | Progress Note ---
Assessment and Plan Apparently, BP is not being documented. Will request. - Patient Problems (1) Acute on chronic diastolic HF (heart failure) Current Visit: Yes Status: Acute (2) Melena Current Visit: Yes Status: Acute (3) Moderate to severe pulmonary hypertension Current Visit: Yes Status: Chronic (4) Pleural effusion Current Visit: Yes Status: Acute (5) Mitral stenosis Current Visit: Yes Status: Chronic (6) History of mitral valve replacement with bioprosthetic valve Current Visit: Yes Status: Chronic (7) Severe anemia Current Visit: Yes Status: Acute (8) Hypotension Current Visit: Yes Status: Acute (9) CAD (coronary artery disease) Current Visit: Yes Status: Chronic Qualifiers: Coronary Disease-Associated Artery/Lesion type: [place] artery Subjective Date of service: 01/02/18 Principal diagnosis: Acute on chronic HFpEF, Severe MS, s/p bioMVR, Pulm HTN, Anemia, Melena Interval history: Remains dyspneic. Still awaiting BETY report from the [facility]. Objective Vital Signs Temp Pulse Pulse Resp Resp Resp BP 01/02/18 09:00 76 20 01/02/18 08:53 01/02/18 08:46 84 22 01/02/18 04:38 114 H 20 01/02/18 04:22 20 01/01/18 21:40 109 H 18 01/01/18 21:31 110 H 17 01/01/18 21:30 01/01/18 21:09 114 H 20 01/01/18 16:49 98.2 F 114 H 18 01/01/18 13:58 117 H 20 01/01/18 13:48 115 H 20 01/01/18 12:06 98.3 F 108 H 18 82/59 BP Pulse Ox 01/02/18 09:00 01/02/18 08:53 96 01/02/18 08:46 01/02/18 04:38 01/02/18 04:22 01/01/18 21:40 01/01/18 21:31 01/01/18 21:30 98 01/01/18 21:09 01/01/18 16:49 94/68 98 01/01/18 13:58 01/01/18 13:48 01/01/18 12:06 100 - Physical Examination General: No Apparent Distress HEENT: Positive: EOMI, Normocephaly, Mucus Membranes Moist Neck: Positive: neck supple, trachea midline, JVD/HJR (elevated) Cardiac: Positive: Reg Rate and Rhythm Lungs: Positive: clear to auscultation Neuro: Positive: Grossly Intact Abdomen: Positive: Soft, Active Bowel Sounds. Negative: Tender Skin: Positive: Clear. Negative: Rash Musculoskeletal: Normal Range of Motion Extremities: Present: +2 Edema (pitting bilateral leg) - Imaging and Cardiology EKG: image reviewed Echo: report reviewed - Telemetry EKG Rhythm: Sinus Tachycardia - EKG Sinus rhythms and dysrhythmias: sinus tachycardia AV and intraventricular conduction: right bundle branch block - Allied health notes Allied health notes reviewed: nursing
--- NOTE | 2018-01-02 12:02 | Progress Note ---
Assessment and Plan b/l pleural efusion L>R - s/p thoracentesis drained 1.5 L 12/29/17 GI bleed - s/p 3 units PRBC - EGD 12/25 showed two minute possible AVMs in 2nd portion, no active bleeding - colonoscopy postponded as patient back on levophed intermittently - plan for coloscopy outpt, advance diet as tolerated - follow h/h Hypotension secondary to GI bleed and dehydration - Started Levophed drip from ER, required intermittently - will cont on low dose midodrine Acute blood loss anemia, transfused, monitor H&H Pneumonia, likely aspiration - treated with IV Levaquin, Zosyn, negative blood cultures - stop abx 12/30/17 Chronic CHF, diastolic dysfunction, stable - monitor volume status, Ef 45-50% Hypokalemia, replete and monitor as needed Hepatitis C, need outpt follow up mitral valve stenosis (s/p replacement) with possible LV thrombus - on anticoagulation with xarelto, now on hold for active GI bleed - will defer to cardiology for restarting time frame - cardiology consulted for recommendation, Still awaiting BETY report from the [facility] GERD, PPI DVT Px - SCD Disposition: PT consulted, recommended HH with supportive care vs [facility]: patient is unfunded Subjective Date of service: 01/02/18 Principal diagnosis: GI bleeding Interval history: Pt seen and examined denies any SOB, no chest pain PT recommended HH vs [facility] Objective - Exam Narrative Exam: General appearance: Present: no acute distress - EENT Eyes: PERRL, EOM intact ENT: hearing intact, clear oral mucosa Ears: bilateral: normal - Neck Neck: supple, normal ROM - Respiratory Respiratory effort: normal Respiratory: bilateral: CTA - Cardiovascular Rhythm: regular Heart Sounds: Present: S1 & S2. Absent: gallop, rub Extremities: pulses intact, normal color, Full ROM - Gastrointestinal General gastrointestinal: Present: soft, non-tender, non-distended, normal bowel sounds - Integumentary Integumentary: clear, warm, dry - Musculoskeletal Musculoskeletal: 1, strength equal bilaterally - Neurologic Neurologic: moves all extremities - Psychiatric Psychiatric: memory intact, appropriate mood/affect, intact judgment & insight - Constitutional Vitals: Vital Signs - 12hr 01/02/18 01/02/18 01/02/18 04:22 04:38 08:46 Pulse Rate 114 H Pulse Rate [ 84 Anterior Bilateral Throughout] Respiratory 20 Rate Respiratory 22 Rate [Anterior Bilateral Throughout] Respiratory 20 Rate [denies pain] O2 Sat by Pulse Oximetry 01/02/18 01/02/18 08:53 09:00 Pulse Rate Pulse Rate [ 76 Anterior Bilateral Throughout] Respiratory Rate Respiratory 20 Rate [Anterior Bilateral Throughout] Respiratory Rate [denies pain] O2 Sat by Pulse 96 Oximetry - Labs CBC & Chem 7: 12/31/17 05:17 12/30/17 05:50
--- NOTE | 2018-01-02 23:22 | Progress Note ---
Assessment and Plan Patient alert, awake. Weak. Resting on 3 litres O2.O2 saturation 99%. Denies shortness of breath or cough or chest pain. - Patient Problems (1) Acute on chronic diastolic HF (heart failure) Current Visit: Yes Status: Acute Plan to address problem: Mangement as per cardiology. (2) Pleural effusion Current Visit: Yes Status: Acute Plan to address problem: Undergone thoracentesis. Pleural fluid Cell count 30, RBC 355. Other pleural fluid results pending. (3) Hypotension Current Visit: Yes Status: Acute Plan to address problem: Improved . Blood pressure 109/74 (4) UGIB (upper gastrointestinal bleed) Current Visit: Yes Status: Acute Plan to address problem: Management as per International Marketing Specialist. (5) Acute blood loss anemia Current Visit: No Status: Acute Plan to address problem: Management as per primary care. (6) CAD (coronary artery disease) Current Visit: Yes Status: Chronic Qualifiers: Coronary Disease-Associated Artery/Lesion type: [place] artery Plan to address problem: Management as per cardiology. (7) History of mitral valve replacement with bioprosthetic valve Current Visit: Yes Status: Chronic Plan to address problem: Management as per cardiology. (8) Moderate to severe pulmonary hypertension Current Visit: Yes Status: Chronic Plan to address problem: Likely secondary to cardiac problems. Also need pulmonary work up as out patient Like PFTs etc. Subjective Date of service: 01/02/18 Principal diagnosis: GI bleeding Interval history: Patient alert, awake. Weak. Resting on 3 litres O2.O2 saturation 99%. Denies shortness of breath or cough or chest pain. Objective Vital Signs - 12hr 01/02/18 01/02/18 01/02/18 14:25 14:42 20:02 Temperature 98.2 F Pulse Rate 106 H Pulse Rate [ 78 83 Anterior Bilateral Throughout] Respiratory 18 Rate Respiratory 20 20 Rate [Anterior Bilateral Throughout] Blood Pressure 109/74 [Right] O2 Sat by Pulse 100 Oximetry 01/02/18 01/02/18 01/02/18 20:39 21:34 22:07 Temperature Pulse Rate 98 H Pulse Rate [ 91 H 107 H Anterior Bilateral Throughout] Respiratory Rate Respiratory 20 20 Rate [Anterior Bilateral Throughout] Blood Pressure [Right] O2 Sat by Pulse 99 Oximetry Constitutional: no acute distress, alert Eyes: non-icteric ENT: oropharynx moist, other (mallampati 2) Neck: supple, no lymphadenopathy, no JVD, other (no thyromegaly) Effort: mildly labored Ascultation: Bilateral: diminished breath sounds (bases), rales Percussion: Bilateral: not dull Cardiovascular: regular rate and rhythm, murmur noted, other (no rubs) Gastrointestinal: normoactive bowel sounds, soft, non-tender, non-distended, other (No HSM) Integumentary: other (poor turgor) Extremities: no cyanosis, pulses normal, no ischemia or petechiae, edema (1+ bilaterally) Neurologic: normal mental status, non-focal exam, pupils equal and round, motor strength normal and Psychiatric: mood appropriate, affect normal CBC and BMP: 12/31/17 05:17 12/30/17 05:50 ABG, PT/INR, D-dimer: PT/INR, D-dimer PT 17.6 Sec. (12.2-14.9) H 12/26/17 04:20 INR 1.36 (0.87-1.13) H 12/26/17 04:20 Abnormal lab findings: Abnormal Labs 12/23/17 12/23/17 12/23/17 20:00 20:00 20:00 RBC 2.43 L Hgb 6.6 L Hct 21.1 L MCH 27 L MCHC 31 L RDW 18.6 H Lymph % (Auto) 11.0 L [place] % (Auto) 10.5 H Lymph # 0.9 L [place] # 0.9 H Seg Neutrophils % 76.6 H PT INR Sodium 129 L Potassium 3.3 L Chloride 90.9 L BUN 32 H Creatinine Glucose 116 H POC Glucose Calcium Total Bilirubin 3.80 H Direct Bilirubin 2.8 H AST 56 H NT-Pro-B Natriuret Pep Total Protein 6.2 L Albumin 2.6 L Hepatitis C Antibody Crossmatch 12/23/17 12/23/17 12/24/17 20:40 20:56 00:30 RBC Hgb Hct MCH MCHC RDW Lymph % (Auto) [place] % (Auto) Lymph # [place] # Seg Neutrophils % PT 28.3 H INR 2.46 H Sodium Potassium Chloride BUN Creatinine Glucose POC Glucose Calcium Total Bilirubin Direct Bilirubin AST NT-Pro-B Natriuret Pep 4304 H Total Protein Albumin Hepatitis C Antibody Crossmatch See Detail 12/24/17 12/24/17 12/24/17 03:41 05:50 07:45 RBC Hgb 8.4 L 8.1 L Hct 26.3 L 24.5 L MCH MCHC RDW Lymph % (Auto) [place] % (Auto) Lymph # [place] # Seg Neutrophils % PT INR Sodium Potassium Chloride BUN Creatinine Glucose POC Glucose 144 H Calcium Total Bilirubin Direct Bilirubin AST NT-Pro-B Natriuret Pep Total Protein Albumin Hepatitis C Antibody Crossmatch 12/24/17 12/25/17 12/25/17 12:18 04:45 04:45 RBC 2.70 L Hgb 7.5 L Hct 23.1 L MCH MCHC RDW 17.9 H Lymph % (Auto) 4.8 L [place] % (Auto) 13.5 H Lymph # 0.4 L [place] # 1.3 H Seg Neutrophils % 81.5 H PT INR Sodium 136 L D Potassium Chloride BUN Creatinine Glucose 107 H POC Glucose 111 H Calcium Total Bilirubin Direct Bilirubin AST NT-Pro-B Natriuret Pep Total Protein Albumin Hepatitis C Antibody Crossmatch 12/25/17 12/25/17 12/26/17 04:45 04:45 04:20 RBC 3.09 L Hgb 8.6 L Hct 26.8 L MCH MCHC RDW 18.0 H Lymph % (Auto) 6.9 L [place] % (Auto) 10.0 H Lymph # 0.6 L [place] # 0.9 H Seg Neutrophils % 82.1 H PT 18.2 H INR 1.42 H Sodium Potassium Chloride BUN Creatinine Glucose POC Glucose Calcium Total Bilirubin Direct Bilirubin AST NT-Pro-B Natriuret Pep Total Protein Albumin Hepatitis C Antibody Reactive A Crossmatch 12/26/17 12/27/17 12/27/17 04:20 14:25 14:25 RBC 3.11 L Hgb 8.7 L Hct 26.5 L MCH MCHC RDW 18.3 H Lymph % (Auto) [place] % (Auto) Lymph # [place] # Seg Neutrophils % PT 17.6 H INR 1.36 H Sodium 135 L Potassium 3.4 L Chloride BUN Creatinine Glucose 132 H POC Glucose Calcium Total Bilirubin Direct Bilirubin AST NT-Pro-B Natriuret Pep Total Protein Albumin Hepatitis C Antibody Crossmatch 12/28/17 12/30/17 12/30/17 14:03 05:50 05:50 RBC 2.85 L Hgb 7.8 L Hct 24.1 L MCH 27 L MCHC RDW 17.3 H Lymph % (Auto) 5.3 L [place] % (Auto) 11.2 H Lymph # 0.5 L [place] # 1.0 H Seg Neutrophils % 82.1 H PT INR Sodium 135 L 132 L Potassium Chloride 96.7 L BUN Creatinine 0.7 L 0.7 L Glucose POC Glucose Calcium 8.1 L Total Bilirubin 2.60 H Direct Bilirubin AST NT-Pro-B Natriuret Pep 5482 H Total Protein 5.4 L Albumin 2.4 L Hepatitis C Antibody Crossmatch 12/31/17 05:17 RBC Hgb 8.0 L Hct 24.2 L MCH MCHC RDW Lymph % (Auto) [place] % (Auto) Lymph # [place] # Seg Neutrophils % PT INR Sodium Potassium Chloride BUN Creatinine Glucose POC Glucose Calcium Total Bilirubin Direct Bilirubin AST NT-Pro-B Natriuret Pep Total Protein Albumin Hepatitis C Antibody Crossmatch Allied health notes reviewed: nursing
[2018-01-03] MEDS: PROAMATINE PO SCH ×3 (08:29→17:56)
[2018-01-03] MEDS: DUONEB *Not for PRN Use IH SCH ×3 (09:29→19:17)
[2018-01-03] MEDS: PROTONIX PO SCH ×2 (11:41→22:09)
[2018-01-03] MEDS: MUCINEX ER PO SCH ×2 (11:41→22:07)
[2018-01-03] MEDS: SODIUM CHLORIDE FLUSH SYRINGE 10 ML IV SCH ×2 (11:42→22:09)
--- NOTE | 2018-01-03 11:47 | Progress Note ---
Assessment and Plan Add Digoxin in view of sinus tachycardia and boderline BP. Resume gentle diuresis. - Patient Problems (1) Acute on chronic diastolic HF (heart failure) Current Visit: Yes Status: Acute (2) Melena Current Visit: Yes Status: Acute (3) Moderate to severe pulmonary hypertension Current Visit: Yes Status: Chronic (4) Pleural effusion Current Visit: Yes Status: Acute (5) Mitral stenosis Current Visit: Yes Status: Chronic (6) History of mitral valve replacement with bioprosthetic valve Current Visit: Yes Status: Chronic (7) Severe anemia Current Visit: Yes Status: Acute (8) Hypotension Current Visit: Yes Status: Acute (9) CAD (coronary artery disease) Current Visit: Yes Status: Chronic Qualifiers: Coronary Disease-Associated Artery/Lesion type: [place] artery Subjective Date of service: 01/03/18 Principal diagnosis: Acute on chronic HFpEF, Melena, Severe anemia, Severe MS, bio AVR, Pul HTN Interval history: He remains short of breath. Objective Vital Signs Last Vital Signs Temp 97.8 F 01/03/18 08:50 Pulse 98 H 01/03/18 09:32 Resp 21 01/03/18 09:47 BP 102/76 01/03/18 08:50 Pulse Ox 98 01/03/18 09:33 - Physical Examination General: No Apparent Distress HEENT: Positive: EOMI, Normocephaly, Mucus Membranes Moist Neck: Positive: neck supple, trachea midline, JVD/HJR (elevated) Cardiac: Positive: Reg Rate and Rhythm, S1/S2 Lungs: Positive: Decreased Breath Sounds (at bases) Neuro: Positive: Grossly Intact Abdomen: Positive: Soft, Active Bowel Sounds. Negative: Tender Skin: Positive: Clear. Negative: Rash Musculoskeletal: Normal Range of Motion Extremities: Present: +1 Edema - Imaging and Cardiology EKG: image reviewed Echo: report reviewed - Telemetry EKG Rhythm: Sinus Tachycardia - EKG Sinus rhythms and dysrhythmias: sinus tachycardia AV and intraventricular conduction: right bundle branch block - Allied health notes Allied health notes reviewed: nursing
[2018-01-03] MEDS: LANOXIN PO SCH ×2 (12:54→17:55)
--- NOTE | 2018-01-03 14:10 | Progress Note ---
Assessment and Plan Patient alert, awake. Weak. Resting on 3 litres O2.O2 saturation 99%. Denies shortness of breath or cough or chest pain. - Patient Problems (1) Acute on chronic diastolic HF (heart failure) Current Visit: Yes Status: Acute Plan to address problem: Mangement as per cardiology. (2) Pleural effusion Current Visit: Yes Status: Acute Plan to address problem: Undergone thoracentesis. Pleural fluid Cell count 30, RBC 355. Other pleural fluid results pending. (3) Hypotension Current Visit: Yes Status: Acute Plan to address problem: Improved . Blood pressure 99/73 (4) UGIB (upper gastrointestinal bleed) Current Visit: Yes Status: Acute Plan to address problem: Management as per [employer]. (5) Acute blood loss anemia Current Visit: No Status: Acute Plan to address problem: Management as per primary care. (6) CAD (coronary artery disease) Current Visit: Yes Status: Chronic Qualifiers: Coronary Disease-Associated Artery/Lesion type: [place] artery Plan to address problem: Management as per cardiology. (7) History of mitral valve replacement with bioprosthetic valve Current Visit: Yes Status: Chronic Plan to address problem: Management as per cardiology. (8) Moderate to severe pulmonary hypertension Current Visit: Yes Status: Chronic Plan to address problem: Likely secondary to cardiac problems. Also need pulmonary work up as out patient Like PFTs etc. Subjective Date of service: 01/03/18 Principal diagnosis: Acute on chronic HFpEF, Melena, Severe anemia, Severe MS, bio AVR, Pul HTN Interval history: Patient alert, awake. Weak. Resting on 3 litres O2.O2 saturation 98%. Denies shortness of breath or cough or chest pain. Objective Vital Signs - 12hr 01/03/18 01/03/18 01/03/18 05:32 08:50 09:24 Temperature 98.9 F 97.8 F Pulse Rate 106 H 64 Pulse Rate [ 99 H Anterior Bilateral Throughout] Respiratory 18 20 Rate Respiratory 20 Rate [Anterior Bilateral Throughout] Blood Pressure 102/76 Blood Pressure 100/84 [Right] O2 Sat by Pulse 100 96 Oximetry 01/03/18 01/03/18 01/03/18 09:32 09:33 09:47 Temperature Pulse Rate Pulse Rate [ 98 H Anterior Bilateral Throughout] Respiratory 21 Rate Respiratory 18 Rate [Anterior Bilateral Throughout] Blood Pressure Blood Pressure [Right] O2 Sat by Pulse 98 Oximetry 01/03/18 01/03/18 01/03/18 10:00 12:49 12:54 Temperature 97.7 F Pulse Rate 107 H 105 H 105 H Pulse Rate [ Anterior Bilateral Throughout] Respiratory 24 Rate Respiratory Rate [Anterior Bilateral Throughout] Blood Pressure Blood Pressure 99/73 [Right] O2 Sat by Pulse Oximetry Constitutional: no acute distress, alert Eyes: non-icteric ENT: oropharynx moist, other (mallampati 2) Neck: supple, no lymphadenopathy, no JVD, other (no thyromegaly) Effort: mildly labored Ascultation: Bilateral: diminished breath sounds (bases), rales Percussion: Bilateral: not dull Cardiovascular: regular rate and rhythm, murmur noted, other (no rubs) Gastrointestinal: normoactive bowel sounds, soft, non-tender, non-distended, other (No HSM) Integumentary: other (poor turgor) Extremities: no cyanosis, pulses normal, no ischemia or petechiae, edema (1+ bilaterally) Neurologic: normal mental status, non-focal exam, pupils equal and round, motor strength normal and Psychiatric: mood appropriate, affect normal CBC and BMP: 12/31/17 05:17 12/30/17 05:50 ABG, PT/INR, D-dimer: PT/INR, D-dimer PT 17.6 Sec. (12.2-14.9) H 12/26/17 04:20 INR 1.36 (0.87-1.13) H 12/26/17 04:20 Abnormal lab findings: Abnormal Labs 12/23/17 12/23/17 12/23/17 20:00 20:00 20:00 RBC 2.43 L Hgb 6.6 L Hct 21.1 L MCH 27 L MCHC 31 L RDW 18.6 H Lymph % (Auto) 11.0 L [place] % (Auto) 10.5 H Lymph # 0.9 L [place] # 0.9 H Seg Neutrophils % 76.6 H PT INR Sodium 129 L Potassium 3.3 L Chloride 90.9 L BUN 32 H Creatinine Glucose 116 H POC Glucose Calcium Total Bilirubin 3.80 H Direct Bilirubin 2.8 H AST 56 H NT-Pro-B Natriuret Pep Total Protein 6.2 L Albumin 2.6 L Hepatitis C Antibody Crossmatch 12/23/17 12/23/17 12/24/17 20:40 20:56 00:30 RBC Hgb Hct MCH MCHC RDW Lymph % (Auto) [place] % (Auto) Lymph # [place] # Seg Neutrophils % PT 28.3 H INR 2.46 H Sodium Potassium Chloride BUN Creatinine Glucose POC Glucose Calcium Total Bilirubin Direct Bilirubin AST NT-Pro-B Natriuret Pep 4304 H Total Protein Albumin Hepatitis C Antibody Crossmatch See Detail 12/24/17 12/24/17 12/24/17 03:41 05:50 07:45 RBC Hgb 8.4 L 8.1 L Hct 26.3 L 24.5 L MCH MCHC RDW Lymph % (Auto) [place] % (Auto) Lymph # [place] # Seg Neutrophils % PT INR Sodium Potassium Chloride BUN Creatinine Glucose POC Glucose 144 H Calcium Total Bilirubin Direct Bilirubin AST NT-Pro-B Natriuret Pep Total Protein Albumin Hepatitis C Antibody Crossmatch 12/24/17 12/25/17 12/25/17 12:18 04:45 04:45 RBC 2.70 L Hgb 7.5 L Hct 23.1 L MCH MCHC RDW 17.9 H Lymph % (Auto) 4.8 L [place] % (Auto) 13.5 H Lymph # 0.4 L [place] # 1.3 H Seg Neutrophils % 81.5 H PT INR Sodium 136 L D Potassium Chloride BUN Creatinine Glucose 107 H POC Glucose 111 H Calcium Total Bilirubin Direct Bilirubin AST NT-Pro-B Natriuret Pep Total Protein Albumin Hepatitis C Antibody Crossmatch 12/25/17 12/25/17 12/26/17 04:45 04:45 04:20 RBC 3.09 L Hgb 8.6 L Hct 26.8 L MCH MCHC RDW 18.0 H Lymph % (Auto) 6.9 L [place] % (Auto) 10.0 H Lymph # 0.6 L [place] # 0.9 H Seg Neutrophils % 82.1 H PT 18.2 H INR 1.42 H Sodium Potassium Chloride BUN Creatinine Glucose POC Glucose Calcium Total Bilirubin Direct Bilirubin AST NT-Pro-B Natriuret Pep Total Protein Albumin Hepatitis C Antibody Reactive A Crossmatch 12/26/17 12/27/17 12/27/17 04:20 14:25 14:25 RBC 3.11 L Hgb 8.7 L Hct 26.5 L MCH MCHC RDW 18.3 H Lymph % (Auto) [place] % (Auto) Lymph # [place] # Seg Neutrophils % PT 17.6 H INR 1.36 H Sodium 135 L Potassium 3.4 L Chloride BUN Creatinine Glucose 132 H POC Glucose Calcium Total Bilirubin Direct Bilirubin AST NT-Pro-B Natriuret Pep Total Protein Albumin Hepatitis C Antibody Crossmatch 12/28/17 12/30/17 12/30/17 14:03 05:50 05:50 RBC 2.85 L Hgb 7.8 L Hct 24.1 L MCH 27 L MCHC RDW 17.3 H Lymph % (Auto) 5.3 L [place] % (Auto) 11.2 H Lymph # 0.5 L [place] # 1.0 H Seg Neutrophils % 82.1 H PT INR Sodium 135 L 132 L Potassium Chloride 96.7 L BUN Creatinine 0.7 L 0.7 L Glucose POC Glucose Calcium 8.1 L Total Bilirubin 2.60 H Direct Bilirubin AST NT-Pro-B Natriuret Pep 5482 H Total Protein 5.4 L Albumin 2.4 L Hepatitis C Antibody Crossmatch 12/31/17 05:17 RBC Hgb 8.0 L Hct 24.2 L MCH MCHC RDW Lymph % (Auto) [place] % (Auto) Lymph # [place] # Seg Neutrophils % PT INR Sodium Potassium Chloride BUN Creatinine Glucose POC Glucose Calcium Total Bilirubin Direct Bilirubin AST NT-Pro-B Natriuret Pep Total Protein Albumin Hepatitis C Antibody Crossmatch Chest x-ray: image reviewed (Radiology report pending.) Allied health notes reviewed: nursing
[2018-01-03] MEDS: LASIX IV SCH (14:13)
--- NOTE | 2018-01-03 16:15 | Progress Note ---
Assessment and Plan b/l pleural efusion L>R - s/p thoracentesis drained 1.5 L 12/29/17 GI bleed - s/p 3 units PRBC - EGD 12/25 showed two minute possible AVMs in 2nd portion, no active bleeding - colonoscopy postponded as patient back on levophed intermittently - plan for coloscopy outpt, advance diet as tolerated - follow h/h Hypotension secondary to GI bleed and dehydration - Started Levophed drip from ER, required intermittently - will cont on low dose midodrine Acute blood loss anemia, transfused, monitor H&H Pneumonia, likely aspiration - treated with IV Levaquin, Zosyn, negative blood cultures - stop abx 12/30/17 Chronic CHF, diastolic dysfunction, stable - monitor volume status, Ef 45-50% - started on diuretic by cardiology Hypokalemia, replete and monitor as needed Hepatitis C, need outpt follow up mitral valve stenosis (s/p replacement) with possible LV thrombus - on anticoagulation with xarelto, now on hold for active GI bleed - will defer to cardiology for restarting time frame - cardiology consulted for recommendation, Still awaiting BETY report from the [facility] GERD, PPI DVT Px - SCD Disposition: PT consulted, recommended HH with supportive care vs ADDIS: patient is unfunded Physical exam: General appearance: Present: no acute distress - EENT Eyes: PERRL, EOM intact ENT: hearing intact, clear oral mucosa Ears: bilateral: normal - Neck Neck: supple, normal ROM - Respiratory Respiratory effort: normal Respiratory: bilateral: CTA - Cardiovascular Rhythm: regular Heart Sounds: Present: S1 & S2. Absent: gallop, rub Extremities: pulses intact, normal color, Full ROM - Gastrointestinal General gastrointestinal: Present: soft, non-tender, non-distended, normal bowel sounds - Integumentary Integumentary: clear, warm, dry - Musculoskeletal Musculoskeletal: 1, strength equal bilaterally - Neurologic Neurologic: moves all extremities - Psychiatric Psychiatric: memory intact, appropriate mood/affect, intact judgment & insight Subjective Date of service: 01/03/18 Principal diagnosis: Acute on chronic HFpEF, Melena, Severe anemia, Severe MS, bio AVR, Pul HTN Interval history: Pt seen and examined denies any chest pain, c/o SOB PT recommended HH vs ADDIS Objective - Constitutional Vitals: Vital Signs - 12hr 01/03/18 01/03/18 01/03/18 05:32 08:50 09:24 Temperature 98.9 F 97.8 F Pulse Rate 106 H 64 Pulse Rate [ 99 H Anterior Bilateral Throughout] Respiratory 18 20 Rate Respiratory 20 Rate [Anterior Bilateral Throughout] Blood Pressure 102/76 Blood Pressure 100/84 [Right] O2 Sat by Pulse 100 96 Oximetry 01/03/18 01/03/18 01/03/18 09:32 09:33 09:47 Temperature Pulse Rate Pulse Rate [ 98 H Anterior Bilateral Throughout] Respiratory 21 Rate Respiratory 18 Rate [Anterior Bilateral Throughout] Blood Pressure Blood Pressure [Right] O2 Sat by Pulse 98 Oximetry 01/03/18 01/03/18 01/03/18 10:00 12:49 12:54 Temperature 97.7 F Pulse Rate 107 H 105 H 105 H Pulse Rate [ Anterior Bilateral Throughout] Respiratory 24 Rate Respiratory Rate [Anterior Bilateral Throughout] Blood Pressure Blood Pressure 99/73 [Right] O2 Sat by Pulse Oximetry - Labs CBC & Chem 7: 01/04/18 05:12 01/04/18 05:12
--- NOTE | 2018-01-03 17:59 | XRay Report ---
FINAL REPORT EXAM: XR CHEST ROUTINE 2V HISTORY: heart failure TECHNIQUE: Two views of the chest Comparison: 12/24/2017, 12/23/2017, 12/02/2017 FINDINGS: Heart size cannot be fully assessed. Previous median sternotomy with cardiac valve prosthesis. Patchy bilateral perihilar and lower lobe predominant infiltrates with basilar consolidation and layering effusions. No pneumothorax. Previously noted right subclavian central line has been removed. IMPRESSION: Bilateral perihilar and lower lobe infiltrates and consolidations with effusions. Cardiac prosthetic valve. Heart size is difficult to fully assess.
[2018-01-03] MEDS: SUDAFED PO PRN (22:08)
[2018-01-04] MEDS: LANOXIN PO SCH ×4 (01:05→17:23)
[2018-01-04 07:02] LABS: Basophils # (Auto) 0.1 K/mm3 (0.0-0.1); Basophils % (Auto) 1.2 % (0.0-1.8); Eosinophils # (Auto) 0.1 K/mm3 (0.0-0.4); Eosinophils % (Auto) 0.7 % (0.0-4.3); Hematocrit 24.9 % (35.5-45.6); Hemoglobin 7.8 gm/dl (11.8-15.2); Lymphocytes # (Auto) 0.7 K/mm3 (1.2-5.4); Lymphocytes % (Auto) 8.3 % (13.4-35.0); Mean Corpuscular HGB Conc 31 % (32-34); Mean Corpuscular Hemoglobin 26 pg (28-32); Mean Corpuscular Volume 84 fl (84-94); Monocytes # (Auto) 1.1 K/mm3 (0.0-0.8); Platelet Count 137 K/mm3 (140-440); Red Blood Count 2.97 M/mm3 (3.65-5.03); Red Cell Distribution Width 18.3 % (13.2-15.2)
[2018-01-04] MEDS: DUONEB *Not for PRN Use IH SCH ×3 (07:12→21:37)
[2018-01-04 07:25] LABS: BUN/Creatinine Ratio 15; Blood Urea Nitrogen 9 mg/dL (9-20); Calcium 8.5 mg/dL (8.4-10.2); Hemolysis Index 1
[2018-01-04 09:46] LABS: LDH,Body Fluid 32
[2018-01-04] MEDS: PROAMATINE PO SCH ×3 (09:53→17:23)
[2018-01-04] MEDS: MUCINEX ER PO SCH ×2 (09:54→21:16)
[2018-01-04] MEDS: LASIX IV SCH (09:54)
[2018-01-04] MEDS: PROTONIX PO SCH ×2 (09:54→21:16)
[2018-01-04] MEDS: SODIUM CHLORIDE FLUSH SYRINGE 10 ML IV SCH ×2 (09:56→21:18)
--- NOTE | 2018-01-04 12:53 | Progress Note ---
Assessment and Plan Assessment: Acute on chronic diastolic HF - EF 45-50% Cor pulmonale Severe pulmonary HTN - RVSP 73mmHg per echo in 10/2017 Mod to severe mitral stenosis - Following evaluation at [facility] in 10/2017, he was felt not to be a candidate for transcatheter mitral valve replacement "given that patient appears to be at risk for LVOT obstruction with V in V and significant RV dysfunction" per [place] structural heart team. He was discharged home on Xarelto in setting of MS. Bilateral pleural effusions s/p thoracentesis GI bleed / Severe anemia - s/p EGD and per GI, pt is a poor candidate overall for colonoscopy and OP pill camera will be planned. May consider outpatient colonoscopy in the future. May cautiously restart anticoagulation, if felt highly important. He will have some future risks of bleeding. 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 LV thrombus - BETY performed at the [facility] in 10/2017 reportedly showed "heavy smoke" with concern for possible thrombus and thus pt was initiated on Xarelto Sinus tachycardia Hypotension Nonobstructive CAD H/o PE - was anticoagulated with Xarelto and then developed GIB in 10/2017 Plan: Cont present cardiac regimen. Monitor H/H closely. PRBC tx PRN per primary. At this time, it appears as though pt may not tolerate resumption of Xarelto. The patient has been seen in conjunction with Dr. Chandra who agrees with the assessment and plan of care. Subjective Date of service: 01/04/18 Principal diagnosis: GI bleeding Interval history: pt resting comfortably in bed, still with c/o SOB. tele reviewed - remains in sinus tachycardia with HR 115s. BPs borderline hypotensive. Objective Last Vital Signs Temp 98.4 F 01/04/18 11:48 Pulse 114 H 01/04/18 11:48 Resp 21 01/04/18 11:48 BP 90/63 01/04/18 11:48 Pulse Ox 99 01/04/18 11:48 - Physical Examination General: No Apparent Distress HEENT: Positive: EOMI, Normocephaly, Mucus Membranes Moist Neck: Positive: neck supple, trachea midline, JVD/HJR (elevated) Cardiac: Positive: Regular Rhythm, S1/S2, Tachycardia Lungs: Positive: Decreased Breath Sounds Neuro: Positive: Grossly Intact Abdomen: Positive: Soft, Active Bowel Sounds. Negative: Tender Skin: Positive: Clear. Negative: Rash Musculoskeletal: Normal Range of Motion Extremities: Present: +1 Edema - Labs and Meds CBC 01/04/18 Range/Units 05:12 WBC 8.2 (4.5-11.0) K/mm3 RBC 2.97 L (3.65-5.03) M/mm3 Hgb 7.8 L (11.8-15.2) gm/dl Hct 24.9 L (35.5-45.6) % Plt Count 137 L (140-440) K/mm3 Lymph # 0.7 L (1.2-5.4) K/mm3 [place] # 1.1 H (0.0-0.8) K/mm3 Eos # 0.1 (0.0-0.4) K/mm3 Baso # 0.1 (0.0-0.1) K/mm3 Comprehensive Metabolic Panel 01/04/18 Range/Units 05:12 Sodium 135 L (137-145) mmol/L Potassium 4.0 (3.6-5.0) mmol/L Chloride 100.6 (98-107) mmol/L Carbon Dioxide 22 (22-30) mmol/L BUN 9 (9-20) mg/dL Creatinine 0.6 L (0.8-1.5) mg/dL Glucose 81 (75-100) mg/dL Calcium 8.5 (8.4-10.2) mg/dL - Imaging and Cardiology EKG: image reviewed Echo: report reviewed (12/27/2017: limited study, EF 45-50%, LA severely dilated , bioprosthetic MV, interventricular septal flattening c/w RV volume or pressure overload, RV mod dilated, RV systolic function mod to severely reduced , minimal pericardial effusion, large pleural effusion) Cardiac cath: report reviewed (10/28/2017: C at [facility] showed 35% proximal LAD stenosis, 30% mid LAD stenosis, 20% prox LCX stenosis, 50% prox RCA stenosis, 40 % mid RCA stenosis) - Telemetry EKG Rhythm: Sinus Tachycardia - EKG Sinus rhythms and dysrhythmias: sinus tachycardia AV and intraventricular conduction: right bundle branch block - Allied health notes Allied health notes reviewed: nursing
--- NOTE | 2018-01-04 13:21 | Progress Note ---
Assessment and Plan GI bleed Hypotension secondary to GI bleed and dehydration Acute blood loss anemia Pneumonia, likely aspiration HFpEF--compensated Hypokalemia, Hepatitis C mitral valve stenosis (s/p replacement) GERD - pleural fluid studies pending - prn ambien ordered - s/p 2 units PRBC - EGD showed two minute possible AVMs in 2nd portion, no active bleeding - no more plans for colonoscopy - continue empiric Antibiotics and follow cultures - anticoagulation with xarelto for MVR currently on hold - continue chronic home medications - continue PPI therapy - observe closely on telemetry ... re-evaluate in am & prn ... 25' Subjective Date of service: 01/04/18 Principal diagnosis: Acute GI bleeding; Acute Hypoxemic Resp Failure; Left pleural effusion Interval history: Patient is seen today for: Acute GI bleeding; Acute Hypoxemic Resp Failure; s/p MVR; CHF; Pulm Edema Seen and examined at bedside; 24-hour events reviewed; nursing and respiratory care staff consulted; no adverse overnight events reported to me; resting in bed ; No N/V/F/C; denies acute chest pains or increased SOB Objective Vital Signs - 12hr 01/04/18 01/04/18 01/04/18 03:44 05:07 06:55 Temperature 98.2 F Pulse Rate 119 H 118 H 119 H Pulse Rate [ Anterior Bilateral Throughout] Respiratory 20 Rate Respiratory Rate [Anterior Bilateral Throughout] Blood Pressure 102/76 97/62 Blood Pressure [Right] O2 Sat by Pulse 90 Oximetry 01/04/18 01/04/18 01/04/18 07:12 07:22 08:05 Temperature 98.4 F Pulse Rate 117 H Pulse Rate [ 116 H 114 H Anterior Bilateral Throughout] Respiratory 18 Rate Respiratory 18 18 Rate [Anterior Bilateral Throughout] Blood Pressure 96/68 Blood Pressure [Right] O2 Sat by Pulse 96 94 Oximetry 01/04/18 01/04/18 08:48 11:48 Temperature 98.4 F Pulse Rate 114 H Pulse Rate [ Anterior Bilateral Throughout] Respiratory 19 21 Rate Respiratory Rate [Anterior Bilateral Throughout] Blood Pressure Blood Pressure 90/63 [Right] O2 Sat by Pulse 99 Oximetry Constitutional: alert, appears uncomfortable, other (elderly looking AAM; normocephalic and atraumatic with mildly increased work of breathing) Eyes: non-icteric ENT: oropharynx moist, other (mallampati 2) Neck: supple, no lymphadenopathy, no JVD, other (no thyromegaly) Effort: mildly labored Ascultation: Bilateral: diminished breath sounds (bases), rales Percussion: Bilateral: not dull Cardiovascular: regular rate and rhythm, murmur noted, other (no rubs) Gastrointestinal: normoactive bowel sounds, soft, non-tender, non-distended, other (No HSM) Integumentary: other (poor turgor) Extremities: no cyanosis, pulses normal, no ischemia or petechiae, edema (1+ bilaterally) Neurologic: normal mental status, non-focal exam, pupils equal and round, motor strength normal and Psychiatric: mood appropriate, affect normal CBC and BMP: 01/10/18 09:17 01/07/18 06:08 ABG, PT/INR, D-dimer: PT/INR, D-dimer PT 17.6 Sec. (12.2-14.9) H 12/26/17 04:20 INR 1.36 (0.87-1.13) H 12/26/17 04:20 Abnormal lab findings: Abnormal Labs 12/23/17 12/23/17 12/23/17 20:00 20:00 20:00 RBC 2.43 L Hgb 6.6 L Hct 21.1 L MCH 27 L MCHC 31 L RDW 18.6 H Plt Count Lymph % (Auto) 11.0 L [place] % (Auto) 10.5 H Lymph # 0.9 L [place] # 0.9 H Seg Neutrophils % 76.6 H PT INR Sodium 129 L Potassium 3.3 L Chloride 90.9 L BUN 32 H Creatinine Glucose 116 H POC Glucose Calcium Total Bilirubin 3.80 H Direct Bilirubin 2.8 H AST 56 H NT-Pro-B Natriuret Pep Total Protein 6.2 L Albumin 2.6 L Hepatitis C Antibody Crossmatch 12/23/17 12/23/17 12/24/17 20:40 20:56 00:30 RBC Hgb Hct MCH MCHC RDW Plt Count Lymph % (Auto) [place] % (Auto) Lymph # [place] # Seg Neutrophils % PT 28.3 H INR 2.46 H Sodium Potassium Chloride BUN Creatinine Glucose POC Glucose Calcium Total Bilirubin Direct Bilirubin AST NT-Pro-B Natriuret Pep 4304 H Total Protein Albumin Hepatitis C Antibody Crossmatch See Detail 12/24/17 12/24/17 12/24/17 03:41 05:50 07:45 RBC Hgb 8.4 L 8.1 L Hct 26.3 L 24.5 L MCH MCHC RDW Plt Count Lymph % (Auto) [place] % (Auto) Lymph # [place] # Seg Neutrophils % PT INR Sodium Potassium Chloride BUN Creatinine Glucose POC Glucose 144 H Calcium Total Bilirubin Direct Bilirubin AST NT-Pro-B Natriuret Pep Total Protein Albumin Hepatitis C Antibody Crossmatch 12/24/17 12/25/17 12/25/17 12:18 04:45 04:45 RBC 2.70 L Hgb 7.5 L Hct 23.1 L MCH MCHC RDW 17.9 H Plt Count Lymph % (Auto) 4.8 L [place] % (Auto) 13.5 H Lymph # 0.4 L [place] # 1.3 H Seg Neutrophils % 81.5 H PT INR Sodium 136 L D Potassium Chloride BUN Creatinine Glucose 107 H POC Glucose 111 H Calcium Total Bilirubin Direct Bilirubin AST NT-Pro-B Natriuret Pep Total Protein Albumin Hepatitis C Antibody Crossmatch 12/25/17 12/25/17 12/26/17 04:45 04:45 04:20 RBC 3.09 L Hgb 8.6 L Hct 26.8 L MCH MCHC RDW 18.0 H Plt Count Lymph % (Auto) 6.9 L [place] % (Auto) 10.0 H Lymph # 0.6 L [place] # 0.9 H Seg Neutrophils % 82.1 H PT 18.2 H INR 1.42 H Sodium Potassium Chloride BUN Creatinine Glucose POC Glucose Calcium Total Bilirubin Direct Bilirubin AST NT-Pro-B Natriuret Pep Total Protein Albumin Hepatitis C Antibody Reactive A Crossmatch 12/26/17 12/27/17 12/27/17 04:20 14:25 14:25 RBC 3.11 L Hgb 8.7 L Hct 26.5 L MCH MCHC RDW 18.3 H Plt Count Lymph % (Auto) [place] % (Auto) Lymph # [place] # Seg Neutrophils % PT 17.6 H INR 1.36 H Sodium 135 L Potassium 3.4 L Chloride BUN Creatinine Glucose 132 H POC Glucose Calcium Total Bilirubin Direct Bilirubin AST NT-Pro-B Natriuret Pep Total Protein Albumin Hepatitis C Antibody Crossmatch 12/28/17 12/30/17 12/30/17 14:03 05:50 05:50 RBC 2.85 L Hgb 7.8 L Hct 24.1 L MCH 27 L MCHC RDW 17.3 H Plt Count Lymph % (Auto) 5.3 L [place] % (Auto) 11.2 H Lymph # 0.5 L [place] # 1.0 H Seg Neutrophils % 82.1 H PT INR Sodium 135 L 132 L Potassium Chloride 96.7 L BUN Creatinine 0.7 L 0.7 L Glucose POC Glucose Calcium 8.1 L Total Bilirubin 2.60 H Direct Bilirubin AST NT-Pro-B Natriuret Pep 5482 H Total Protein 5.4 L Albumin 2.4 L Hepatitis C Antibody Crossmatch 12/31/17 01/04/18 01/04/18 05:17 05:12 05:12 RBC 2.97 L Hgb 8.0 L 7.8 L Hct 24.2 L 24.9 L MCH 26 L MCHC 31 L RDW 18.3 H Plt Count 137 L Lymph % (Auto) 8.3 L [place] % (Auto) 14.0 H Lymph # 0.7 L [place] # 1.1 H Seg Neutrophils % 75.8 H PT INR Sodium 135 L Potassium Chloride BUN Creatinine 0.6 L Glucose POC Glucose Calcium Total Bilirubin Direct Bilirubin AST NT-Pro-B Natriuret Pep Total Protein Albumin Hepatitis C Antibody Crossmatch Allied health notes reviewed: nursing
--- NOTE | 2018-01-04 15:40 | Progress Note ---
Assessment and Plan b/l pleural efusion L>R - s/p thoracentesis drained 1.5 L 12/29/17 GI bleed - s/p 3 units PRBC - EGD 12/25 showed two minute possible AVMs in 2nd portion, no active bleeding - colonoscopy postponded as patient back on levophed intermittently - plan for coloscopy outpt, advanced diet as tolerated - cont to follow h/h Hypotension secondary to GI bleed and dehydration - Started Levophed drip from ER, required intermittently - will cont on low dose midodrine Acute blood loss anemia, transfused, monitor H&H Pneumonia, likely aspiration - treated with IV Levaquin, Zosyn, negative blood cultures - stopped abx 12/30/17 Chronic CHF, diastolic dysfunction, stable - monitor volume status, Ef 45-50% - started on diuretic by cardiology, cont to monitor Hypokalemia, replete and monitor as needed Hepatitis C, need outpt follow up mitral valve stenosis (s/p replacement) with possible LV thrombus - on anticoagulation with xarelto, now on hold for active GI bleed - will defer to cardiology for restarting time frame - cardiology consulted for recommendation, Still awaiting BETY report from the [facility], PPI DVT Px - SCD Disposition: PT consulted, recommended HH with supportive care vs ADDIS: patient is unfunded Physical exam: General appearance: Present: no acute distress - EENT Eyes: PERRL, EOM intact ENT: hearing intact, clear oral mucosa Ears: bilateral: normal - Neck Neck: supple, normal ROM - Respiratory Respiratory effort: normal Respiratory: bilateral: CTA - Cardiovascular Rhythm: regular Heart Sounds: Present: S1 & S2. Absent: gallop, rub Extremities: pulses intact, normal color, Full ROM - Gastrointestinal General gastrointestinal: Present: soft, non-tender, non-distended, normal bowel sounds - Integumentary Integumentary: clear, warm, dry - Musculoskeletal Musculoskeletal: 1, strength equal bilaterally - Neurologic Neurologic: moves all extremities - Psychiatric Psychiatric: memory intact, appropriate mood/affect, intact judgment & insight Subjective Date of service: 01/04/18 Principal diagnosis: Acute GI bleeding; Acute Hypoxemic Resp Failure; Left pleural effusion Interval history: Pt seen and examined denies any chest pain, c/o SOB PT recommended HH vs ADDIS Objective - Constitutional Vitals: Vital Signs - 12hr 01/04/18 01/04/18 01/04/18 05:07 06:55 07:12 Temperature 98.2 F Pulse Rate 118 H 119 H Pulse Rate [ 116 H Anterior Bilateral Throughout] Respiratory 20 Rate Respiratory 18 Rate [Anterior Bilateral Throughout] Blood Pressure 102/76 97/62 Blood Pressure [Right] O2 Sat by Pulse 90 96 Oximetry 01/04/18 01/04/18 01/04/18 07:22 08:05 08:48 Temperature 98.4 F Pulse Rate 117 H Pulse Rate [ 114 H Anterior Bilateral Throughout] Respiratory 18 19 Rate Respiratory 18 Rate [Anterior Bilateral Throughout] Blood Pressure 96/68 Blood Pressure [Right] O2 Sat by Pulse 94 Oximetry 01/04/18 01/04/18 01/04/18 11:48 13:21 13:28 Temperature 98.4 F Pulse Rate 114 H 115 H Pulse Rate [ 117 H Anterior Bilateral Throughout] Respiratory 21 Rate Respiratory 18 Rate [Anterior Bilateral Throughout] Blood Pressure Blood Pressure 90/63 [Right] O2 Sat by Pulse 99 Oximetry 01/04/18 13:38 Temperature Pulse Rate Pulse Rate [ 115 H Anterior Bilateral Throughout] Respiratory Rate Respiratory 18 Rate [Anterior Bilateral Throughout] Blood Pressure Blood Pressure [Right] O2 Sat by Pulse Oximetry - Labs CBC & Chem 7: 01/04/18 05:12 01/04/18 05:12 Labs: Abnormal lab results 01/04/18 01/04/18 Range/Units 05:12 05:12 RBC 2.97 L (3.65-5.03) M/mm3 Hgb 7.8 L (11.8-15.2) gm/dl Hct 24.9 L (35.5-45.6) % MCH 26 L (28-32) pg MCHC 31 L (32-34) % RDW 18.3 H (13.2-15.2) % Plt Count 137 L (140-440) K/mm3 Lymph % (Auto) 8.3 L (13.4-35.0) % [place] % (Auto) 14.0 H (0.0-7.3) % Lymph # 0.7 L (1.2-5.4) K/mm3 [place] # 1.1 H (0.0-0.8) K/mm3 Seg Neutrophils % 75.8 H (40.0-70.0) % Sodium 135 L (137-145) mmol/L Creatinine 0.6 L (0.8-1.5) mg/dL
[2018-01-04] MEDS: TYLENOL PO PRN (21:16)
[2018-01-05] MEDS: DUONEB *Not for PRN Use IH SCH ×3 (08:58→20:18)
[2018-01-05] MEDS: MUCINEX ER PO SCH ×2 (09:56→21:10)
[2018-01-05] MEDS: LASIX IV SCH (09:56)
[2018-01-05] MEDS: PROTONIX PO SCH ×2 (09:56→21:10)
[2018-01-05] MEDS: PROAMATINE PO SCH ×3 (09:56→17:00)
[2018-01-05] MEDS: SODIUM CHLORIDE FLUSH SYRINGE 10 ML IV SCH ×2 (09:57→21:10)
--- NOTE | 2018-01-05 10:13 | Progress Note ---
<JALYN LOPES JODIE - Last Filed: 01/05/18 11:51> Assessment and Plan Assessment: Acute on chronic diastolic HF - EF 45-50% Cor pulmonale Severe pulmonary HTN - RVSP 73mmHg per echo in 10/2017 Mod to severe mitral stenosis - Following evaluation at [facility] in 10/2017, he was felt not to be a candidate for transcatheter mitral valve replacement "given that patient appears to be at risk for LVOT obstruction with V in V and significant RV dysfunction" per [place] structural heart team. He was discharged home on Xarelto in setting of MS. Bilateral pleural effusions s/p thoracentesis Pneumonia GI bleed / Severe anemia - s/p EGD and per GI, pt is a poor candidate overall for colonoscopy and OP pill camera will be planned. May consider outpatient colonoscopy in the future. May cautiously restart anticoagulation, if felt highly important. He will have some future risks of bleeding. 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 LV thrombus - BETY performed at the [facility] in 10/2017 reportedly showed "heavy smoke" with concern for possible thrombus and thus pt was initiated on Xarelto Sinus tachycardia - improving Hypotension Nonobstructive CAD H/o PE - was anticoagulated with Xarelto and then developed GIB in 10/2017 Plan: Cont present cardiac regimen. Obtain digoxin level in AM. Monitor H/H closely. PRBC tx PRN per primary. At this time, it appears as though pt may not tolerate resumption of Xarelto. The patient has been seen in conjunction with Dr. Chandra who agrees with the assessment and plan of care. Subjective Date of service: 01/05/18 Principal diagnosis: Acute GI bleeding; Acute Hypoxemic Resp Failure; Left pleural effusion Interval history: pt resting comfortably in bed, no current complaints. tele reviewed - remains in sinus tachycardia with HR 100s. Two occurrences of 3 beat runs NSVT noted overnight. Objective Last Vital Signs Temp 98.0 F 01/05/18 08:06 Pulse 110 H 01/05/18 09:07 Resp 20 01/05/18 09:07 BP 101/71 01/05/18 08:06 Pulse Ox 97 01/05/18 09:08 - Physical Examination General: No Apparent Distress HEENT: Positive: EOMI, Normocephaly, Mucus Membranes Moist Neck: Positive: neck supple, trachea midline, JVD/HJR (elevated) Cardiac: Positive: Regular Rhythm, S1/S2, Systolic Murmur Lungs: Positive: Decreased Breath Sounds Neuro: Positive: Grossly Intact Abdomen: Positive: Soft, Active Bowel Sounds. Negative: Tender Skin: Positive: Clear. Negative: Rash Musculoskeletal: Normal Range of Motion Extremities: Absent: edema - Imaging and Cardiology EKG: image reviewed Echo: report reviewed (12/27/2017: limited study, EF 45-50%, LA severely dilated , bioprosthetic MV, interventricular septal flattening c/w RV volume or pressure overload, RV mod dilated, RV systolic function mod to severely reduced , minimal pericardial effusion, large pleural effusion) Cardiac cath: report reviewed (10/28/2017: LHC at [place] showed 35% proximal LAD stenosis, 30% mid LAD stenosis, 20% prox LCX stenosis, 50% prox RCA stenosis, 40 % mid RCA stenosis) - Telemetry EKG Rhythm: Sinus Tachycardia - EKG Sinus rhythms and dysrhythmias: sinus tachycardia AV and intraventricular conduction: right bundle branch block - Allied health notes Allied health notes reviewed: nursing <DANILO CHANDRA M - Last Filed: 01/05/18 12:34> Assessment and Plan Continue sob/orthopnea today Telemetry: sinus tachycardia Bioprosthetic valve '05 with stenosis (not candidate for MVR or TMVR) Cor pulmonale/RV dysfunction/Pulmonary hypertension RVSP 73mmHg Sinus tachcardia continue digoxin GI Bleed/Severe Anemia pill camera as outpatient Hypotension Prognosis: poor given inoperable candidate Continue to hold oral anticoagulation given Hgb 7.8 Objective Vital Signs Temp Pulse Pulse Pulse Resp Resp Resp 01/05/18 09:08 01/05/18 09:07 110 H 20 01/05/18 09:00 17 01/05/18 08:55 109 H 01/05/18 08:06 98.0 F 109 H 01/05/18 05:34 98.6 F 64 20 01/05/18 03:41 102 H 01/05/18 00:58 98.2 F 102 H 18 01/04/18 21:49 120 H 20 01/04/18 21:39 01/04/18 21:16 20 01/04/18 20:03 98.6 F 117 H 01/04/18 19:48 115 H 01/04/18 17:23 112 H 01/04/18 15:59 98.3 F 119 H 18 01/04/18 13:38 115 H 18 01/04/18 13:28 117 H 18 01/04/18 13:21 115 H BP BP Pulse Ox 01/05/18 09:08 97 01/05/18 09:07 01/05/18 09:00 2 L 01/05/18 08:55 01/05/18 08:06 101/71 99 01/05/18 05:34 99/58 98 01/05/18 03:41 01/05/18 00:58 97/68 90 01/04/18 21:49 01/04/18 21:39 97 01/04/18 21:16 01/04/18 20:03 94/67 100 01/04/18 19:48 94/67 97 01/04/18 17:23 01/04/18 15:59 91/64 95 01/04/18 13:38 01/04/18 13:28 01/04/18 13:21
--- NOTE | 2018-01-05 16:18 | Progress Note ---
Assessment and Plan GI bleed Hypotension secondary to GI bleed and dehydration Acute blood loss anemia Pneumonia, likely aspiration HFpEF--compensated Hypokalemia, Hepatitis C mitral valve stenosis (s/p replacement) GERD Bilateral pleural effusion -Supplemental oxygen to keep O2 sats>90% -Bronchodilaotrs prn -VTE prophylaxis, SCD -get CXR today to evaluate pulmonary parenchyma and pleural effusions - Antibiotics follow cultures -resume anticoagulation with xarelto for MVR after review of CXR. If he needs thoracentesis then will hold Xarelto and resume it after thoracentesis -Diuresis -chronic home medications -PPI Subjective Date of service: 01/05/18 Principal diagnosis: Acute GI bleeding; Acute Hypoxemic Resp Failure; Left pleural effusion Interval history: Pt seen and examined Patient with PMH of COPD, GERD, HTN, PE, hepatitis C, mitral valve stenosis (s/ p replacement), and GI bleeding due to AVMs who presented to ED with c/o vague symptoms. He was found to be hypotensive, H/H 6.6/21.1 with melenotic stool. s/p 2 unit PRBC transfusion, on 2mcg of norepinephrine No hematemesis or hematochezia. Denies CP, SOB, dizziness, abd pain, N/V, or LGI symptoms such as diarrhea or constipation. Takes iron supplement and Xarelto at home (unsure of last dose, patient noted to be a poor historian). Drinks 2-3 beers daily. No previous treatment for hep C. s/p EGD Seen and examined. Vitals, labs, medications, chart reviewed. 24 hour events reviewed. No acute overnight events reported. Patient denies any chest pain, has shortness of breath. No fevers or chills. no abdominal pain. No active bleeding Objective Vital Signs - 12hr 01/05/18 01/05/18 01/05/18 05:34 08:06 08:55 Temperature 98.6 F 98.0 F Pulse Rate 64 109 H Pulse Rate [ 109 H Anterior Bilateral Throughout] Pulse Rate [ Posterior Bilateral Throughout] Respiratory 20 16 Rate Respiratory 16 Rate [Anterior Bilateral Throughout] Respiratory Rate [Posterior Bilateral Throughout] Blood Pressure 99/58 101/71 [Right] O2 Sat by Pulse 98 99 Oximetry 01/05/18 01/05/18 01/05/18 09:00 09:07 09:08 Temperature Pulse Rate Pulse Rate [ 110 H Anterior Bilateral Throughout] Pulse Rate [ Posterior Bilateral Throughout] Respiratory 17 Rate Respiratory 20 Rate [Anterior Bilateral Throughout] Respiratory Rate [Posterior Bilateral Throughout] Blood Pressure [Right] O2 Sat by Pulse 2 L 97 Oximetry 01/05/18 01/05/18 01/05/18 12:35 14:47 15:02 Temperature Pulse Rate 104 H Pulse Rate [ Anterior Bilateral Throughout] Pulse Rate [ 104 H 104 H Posterior Bilateral Throughout] Respiratory Rate Respiratory Rate [Anterior Bilateral Throughout] Respiratory 20 20 Rate [Posterior Bilateral Throughout] Blood Pressure [Right] O2 Sat by Pulse Oximetry Constitutional: alert, appears uncomfortable, other (elderly looking AAM; normocephalic and atraumatic with mildly increased work of breathing) Eyes: non-icteric ENT: oropharynx moist, other (mallampati 2) Neck: supple, no lymphadenopathy, no JVD, other (no thyromegaly) Effort: mildly labored Ascultation: Bilateral: diminished breath sounds (bases), rales Percussion: Bilateral: not dull Cardiovascular: regular rate and rhythm, murmur noted, other (no rubs) Gastrointestinal: normoactive bowel sounds, soft, non-tender, non-distended, other (No HSM) Integumentary: other (poor turgor) Extremities: no cyanosis, pulses normal, no ischemia or petechiae, edema (1+ bilaterally) Neurologic: normal mental status, non-focal exam, pupils equal and round, motor strength normal and Psychiatric: mood appropriate, affect normal CBC and BMP: 01/07/18 06:08 01/07/18 06:08 ABG, PT/INR, D-dimer: PT/INR, D-dimer PT 17.6 Sec. (12.2-14.9) H 12/26/17 04:20 INR 1.36 (0.87-1.13) H 12/26/17 04:20 Abnormal lab findings: Abnormal Labs 12/23/17 12/23/17 12/23/17 20:00 20:00 20:00 RBC 2.43 L Hgb 6.6 L Hct 21.1 L MCH 27 L MCHC 31 L RDW 18.6 H Plt Count Lymph % (Auto) 11.0 L [place] % (Auto) 10.5 H Lymph # 0.9 L [place] # 0.9 H Seg Neutrophils % 76.6 H PT INR Sodium 129 L Potassium 3.3 L Chloride 90.9 L BUN 32 H Creatinine Glucose 116 H POC Glucose Calcium Total Bilirubin 3.80 H Direct Bilirubin 2.8 H AST 56 H NT-Pro-B Natriuret Pep Total Protein 6.2 L Albumin 2.6 L Hepatitis C Antibody Crossmatch 12/23/17 12/23/17 12/24/17 20:40 20:56 00:30 RBC Hgb Hct MCH MCHC RDW Plt Count Lymph % (Auto) [place] % (Auto) Lymph # [place] # Seg Neutrophils % PT 28.3 H INR 2.46 H Sodium Potassium Chloride BUN Creatinine Glucose POC Glucose Calcium Total Bilirubin Direct Bilirubin AST NT-Pro-B Natriuret Pep 4304 H Total Protein Albumin Hepatitis C Antibody Crossmatch See Detail 12/24/17 12/24/17 12/24/17 03:41 05:50 07:45 RBC Hgb 8.4 L 8.1 L Hct 26.3 L 24.5 L MCH MCHC RDW Plt Count Lymph % (Auto) [place] % (Auto) Lymph # [place] # Seg Neutrophils % PT INR Sodium Potassium Chloride BUN Creatinine Glucose POC Glucose 144 H Calcium Total Bilirubin Direct Bilirubin AST NT-Pro-B Natriuret Pep Total Protein Albumin Hepatitis C Antibody Crossmatch 12/24/17 12/25/17 12/25/17 12:18 04:45 04:45 RBC 2.70 L Hgb 7.5 L Hct 23.1 L MCH MCHC RDW 17.9 H Plt Count Lymph % (Auto) 4.8 L [place] % (Auto) 13.5 H Lymph # 0.4 L [place] # 1.3 H Seg Neutrophils % 81.5 H PT INR Sodium 136 L D Potassium Chloride BUN Creatinine Glucose 107 H POC Glucose 111 H Calcium Total Bilirubin Direct Bilirubin AST NT-Pro-B Natriuret Pep Total Protein Albumin Hepatitis C Antibody Crossmatch 12/25/17 12/25/17 12/26/17 04:45 04:45 04:20 RBC 3.09 L Hgb 8.6 L Hct 26.8 L MCH MCHC RDW 18.0 H Plt Count Lymph % (Auto) 6.9 L [place] % (Auto) 10.0 H Lymph # 0.6 L [place] # 0.9 H Seg Neutrophils % 82.1 H PT 18.2 H INR 1.42 H Sodium Potassium Chloride BUN Creatinine Glucose POC Glucose Calcium Total Bilirubin Direct Bilirubin AST NT-Pro-B Natriuret Pep Total Protein Albumin Hepatitis C Antibody Reactive A Crossmatch 12/26/17 12/27/17 12/27/17 04:20 14:25 14:25 RBC 3.11 L Hgb 8.7 L Hct 26.5 L MCH MCHC RDW 18.3 H Plt Count Lymph % (Auto) [place] % (Auto) Lymph # [place] # Seg Neutrophils % PT 17.6 H INR 1.36 H Sodium 135 L Potassium 3.4 L Chloride BUN Creatinine Glucose 132 H POC Glucose Calcium Total Bilirubin Direct Bilirubin AST NT-Pro-B Natriuret Pep Total Protein Albumin Hepatitis C Antibody Crossmatch 12/28/17 12/30/17 12/30/17 14:03 05:50 05:50 RBC 2.85 L Hgb 7.8 L Hct 24.1 L MCH 27 L MCHC RDW 17.3 H Plt Count Lymph % (Auto) 5.3 L [place] % (Auto) 11.2 H Lymph # 0.5 L [place] # 1.0 H Seg Neutrophils % 82.1 H PT INR Sodium 135 L 132 L Potassium Chloride 96.7 L BUN Creatinine 0.7 L 0.7 L Glucose POC Glucose Calcium 8.1 L Total Bilirubin 2.60 H Direct Bilirubin AST NT-Pro-B Natriuret Pep 5482 H Total Protein 5.4 L Albumin 2.4 L Hepatitis C Antibody Crossmatch 12/31/17 01/04/18 01/04/18 05:17 05:12 05:12 RBC 2.97 L Hgb 8.0 L 7.8 L Hct 24.2 L 24.9 L MCH 26 L MCHC 31 L RDW 18.3 H Plt Count 137 L Lymph % (Auto) 8.3 L [place] % (Auto) 14.0 H Lymph # 0.7 L [place] # 1.1 H Seg Neutrophils % 75.8 H PT INR Sodium 135 L Potassium Chloride BUN Creatinine 0.6 L Glucose POC Glucose Calcium Total Bilirubin Direct Bilirubin AST NT-Pro-B Natriuret Pep Total Protein Albumin Hepatitis C Antibody Crossmatch Allied health notes reviewed: nursing
[2018-01-05 16:22] LABS: Hematocrit 26.4 % (35.5-45.6); Hemoglobin 8.4 gm/dl (11.8-15.2)
[2018-01-05] MEDS: LANOXIN PO SCH (17:00)
--- NOTE | 2018-01-05 17:03 | Progress Note ---
Assessment and Plan b/l pleural efusion L>R - s/p thoracentesis drained 1.5 L 12/29/17 - now on lasix GI bleed - s/p 3 units PRBC - EGD 12/25 showed two minute possible AVMs in 2nd portion, no active bleeding - colonoscopy postponded as patient back on levophed intermittently - plan for coloscopy outpt, advanced diet as tolerated - cont to follow h/h Hypotension secondary to GI bleed and dehydration - Started Levophed drip from ER, required intermittently - will cont on low dose midodrine Acute blood loss anemia, transfused, monitor H&H Pneumonia, likely aspiration - treated with IV Levaquin, Zosyn, negative blood cultures - stopped abx 12/30/17 Chronic CHF, diastolic dysfunction, stable - monitor volume status, Ef 45-50% - started on diuretic by cardiology, cont to monitor Hypokalemia, replete and monitor as needed Hepatitis C, need outpt follow up Mitral valve stenosis (s/p replacement) with possible LV thrombus - On anticoagulation with xarelto, now on hold for active GI bleed - Per cardiology he is a poor candidate to start on AC for anemia and recent GI bleed GERD, PPI DVT Px - SCD Disposition: PT consulted, recommended HH with supportive care vs ADDIS: patient is unfunded Physical exam: General appearance: Present: no acute distress - EENT Eyes: PERRL, EOM intact ENT: hearing intact, clear oral mucosa Ears: bilateral: normal - Neck Neck: supple, normal ROM - Respiratory Respiratory effort: normal Respiratory: bilateral: CTA - Cardiovascular Rhythm: regular Heart Sounds: Present: S1 & S2. Absent: gallop, rub Extremities: pulses intact, normal color, Full ROM - Gastrointestinal General gastrointestinal: Present: soft, non-tender, non-distended, normal bowel sounds - Integumentary Integumentary: clear, warm, dry - Musculoskeletal Musculoskeletal: 1, strength equal bilaterally - Neurologic Neurologic: moves all extremities - Psychiatric Psychiatric: memory intact, appropriate mood/affect, intact judgment & insight Subjective Date of service: 01/05/18 Principal diagnosis: Acute GI bleeding; Acute Hypoxemic Resp Failure; Left pleural effusion Interval history: Pt seen and examined denies any chest pain, c/o SOB PT recommended HH vs ADDIS Objective - Constitutional Vitals: Vital Signs - 12hr 0801/05/18 01/05/18 05:34 08:06 08:55 Temperature 98.6 F 98.0 F Pulse Rate 64 109 H Pulse Rate [ 109 H Anterior Bilateral Throughout] Pulse Rate [ Posterior Bilateral Throughout] Respiratory 20 16 Rate Respiratory 16 Rate [Anterior Bilateral Throughout] Respiratory Rate [Posterior Bilateral Throughout] Blood Pressure 99/58 101/71 [Right] O2 Sat by Pulse 98 99 Oximetry 01/05/18 01/05/18 01/05/18 09:00 09:07 09:08 Temperature Pulse Rate Pulse Rate [ 110 H Anterior Bilateral Throughout] Pulse Rate [ Posterior Bilateral Throughout] Respiratory 17 Rate Respiratory 20 Rate [Anterior Bilateral Throughout] Respiratory Rate [Posterior Bilateral Throughout] Blood Pressure [Right] O2 Sat by Pulse 2 L 97 Oximetry 01/05/18 01/05/18 01/05/18 12:35 14:47 15:02 Temperature Pulse Rate 104 H Pulse Rate [ Anterior Bilateral Throughout] Pulse Rate [ 104 H 104 H Posterior Bilateral Throughout] Respiratory Rate Respiratory Rate [Anterior Bilateral Throughout] Respiratory 20 20 Rate [Posterior Bilateral Throughout] Blood Pressure [Right] O2 Sat by Pulse Oximetry - Labs CBC & Chem 7: 01/05/18 15:31 01/04/18 05:12 Labs: Abnormal lab results 01/05/18 Range/Units 15:31 Hgb 8.4 L (11.8-15.2) gm/dl Hct 26.4 L (35.5-45.6) %
[2018-01-06 07:07] LABS: Hematocrit 25.7 % (35.5-45.6); Hemoglobin 8.2 gm/dl (11.8-15.2)
[2018-01-06] MEDS: PROAMATINE PO SCH ×3 (08:32→15:45)
[2018-01-06] MEDS: DUONEB *Not for PRN Use IH SCH ×3 (09:20→21:11)
[2018-01-06] MEDS: PROTONIX PO SCH ×2 (10:13→21:32)
[2018-01-06] MEDS: MUCINEX ER PO SCH ×2 (10:13→21:32)
[2018-01-06] MEDS: LASIX IV SCH (10:14)
[2018-01-06] MEDS: SODIUM CHLORIDE FLUSH SYRINGE 10 ML IV SCH ×2 (10:14→21:34)
--- NOTE | 2018-01-06 10:38 | Progress Note ---
Assessment and Plan Assessment: Acute on chronic diastolic HF - EF 45-50% Cor pulmonale Severe pulmonary HTN - RVSP 73mmHg per echo in 10/2017 Mod to severe mitral stenosis - Following evaluation [facility] in 10/[facility], he was felt not to be a candidate for transcatheter mitral valve replacement "given that patient appears to be at risk for LVOT obstruction with V in V and significant RV dysfunction" per [place] structural heart team. He was discharged home on Xarelto in setting of MS. Bilateral pleural effusions s/p thoracentesis Pneumonia GI bleed / Severe anemia - s/p EGD and per GI, pt is a poor candidate overall for colonoscopy and OP pill camera will be planned. May consider outpatient colonoscopy in the future. May cautiously restart anticoagulation, if felt highly important. He will have some future risks of bleeding. 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 LV thrombus - BETY performed at the [facility] in 10/2017 reportedly showed "heavy smoke" with concern for possible thrombus and thus pt was initiated on Xarelto Sinus tachycardia - improving Hypotension Nonobstructive CAD H/o PE - was anticoagulated with Xarelto and then developed GIB in 10/2017 Plan: Cont present cardiac regimen. Follow pulmonary recs. Prognosis appears poor given inoperable candidate. Hospice care may be an appropriate option at this point. Continue to hold oral anticoagulation in setting of anemia. PRBC tx per primary. The patient has been seen in conjunction with Dr. Chandra who agrees with the assessment and plan of care. Subjective Date of service: 01/06/18 Principal diagnosis: Acute GI bleeding; Acute Hypoxemic Resp Failure; Left pleural effusion Interval history: pt resting comfortably in bed, no current complaints. tele reviewed - remains in sinus tachycardia with HR 100s - 110s. Infrequent brief runs NSVT noted overnight. Objective Last Vital Signs Temp 98.4 F 01/06/18 07:36 Pulse 70 01/06/18 09:40 Resp 20 01/06/18 09:40 BP 86/62 01/06/18 07:36 Pulse Ox 93 01/06/18 09:21 - Physical Examination General: No Apparent Distress HEENT: Positive: EOMI, Normocephaly, Mucus Membranes Moist Neck: Positive: neck supple, trachea midline, JVD/HJR (elevated) Neuro: Positive: Grossly Intact Abdomen: Positive: Soft, Active Bowel Sounds. Negative: Tender Skin: Positive: Clear. Negative: Rash Musculoskeletal: Normal Range of Motion Extremities: Absent: edema - Labs and Meds CBC 01/05/18 01/06/18 Range/Units 15:31 05:43 Hgb 8.4 L 8.2 L (11.8-15.2) gm/dl Hct 26.4 L 25.7 L (35.5-45.6) % - Imaging and Cardiology EKG: image reviewed Echo: report reviewed (12/27/2017: limited study, EF 45-50%, LA severely dilated , bioprosthetic MV, interventricular septal flattening c/w RV volume or pressure overload, RV mod dilated, RV systolic function mod to severely reduced , minimal pericardial effusion, large pleural effusion) Cardiac cath: report reviewed (10/28/2017: LHC at [place] showed 35% proximal LAD stenosis, 30% mid LAD stenosis, 20% prox LCX stenosis, 50% prox RCA stenosis, 40 % mid RCA stenosis) - EKG Sinus rhythms and dysrhythmias: sinus tachycardia AV and intraventricular conduction: right bundle branch block - Allied health notes Allied health notes reviewed: nursing
--- NOTE | 2018-01-06 13:14 | Progress Note ---
Assessment and Plan Mitral valve stenosis with possible LV thrombus - Following evaluation at [facility] in 10/2017, he was felt not to be a candidate for transcatheter mitral valve replacement per [place] structural heart team. He was discharged home on Xarelto in setting of MS. - Per cardiology he is a poor candidate to start on AC for anemia and recent GI bleed, Now xarelto on hold b/l pleural efusion L>R - s/p thoracentesis drained 1.5 L 12/29/17 - now on lasix GI bleed - s/p 3 units PRBC - EGD 12/25 showed two minute possible AVMs in 2nd portion, no active bleeding - colonoscopy postponded as patient back on levophed intermittently - plan for coloscopy outpt, advanced diet as tolerated - cont to follow h/h Hypotension secondary to GI bleed and dehydration - Started Levophed drip from ER, required intermittently - will cont on low dose midodrine Acute blood loss anemia, transfused, monitor H&H Pneumonia, likely aspiration - treated with IV Levaquin, Zosyn, negative blood cultures - stopped abx 12/30/17 Chronic CHF, diastolic dysfunction, stable - monitor volume status, Ef 45-50% - started on diuretic by cardiology, cont to monitor Hypokalemia, replete and monitor as needed Hepatitis C, need outpt follow up GERD, PPI DVT Px - SCD Disposition: PT consulted, recommended HH with supportive care vs [facility]: patient is unfunded. Cardiology recommended hospice for inoperable MS, discussed with patient and he agrees. CM notified Physical exam: General appearance: Present: no acute distress - EENT Eyes: PERRL, EOM intact ENT: hearing intact, clear oral mucosa Ears: bilateral: normal - Neck Neck: supple, normal ROM - Respiratory Respiratory effort: normal Respiratory: bilateral: CTA - Cardiovascular Rhythm: regular Heart Sounds: Present: S1 & S2. Absent: gallop, rub Extremities: pulses intact, normal color, Full ROM - Gastrointestinal General gastrointestinal: Present: soft, non-tender, non-distended, normal bowel sounds - Integumentary Integumentary: clear, warm, dry - Musculoskeletal Musculoskeletal: 1, strength equal bilaterally - Neurologic Neurologic: moves all extremities - Psychiatric Psychiatric: memory intact, appropriate mood/affect, intact judgment & insight Subjective Date of service: 01/06/18 Principal diagnosis: Acute GI bleeding; Acute Hypoxemic Resp Failure; Left pleural effusion Interval history: Pt seen and examined denies any chest pain, c/o SOB PT recommended HH vs [facility] DISCUSSED WITH CARDIOLOGY, RECOMMENDED HOSPICE Objective - Constitutional Vitals: Vital Signs - 12hr 01/06/18 01/06/18 01/06/18 05:46 07:36 08:00 Temperature 99.7 F H 98.4 F Pulse Rate 119 H 113 H Pulse Rate [ 69 Anterior Bilateral Throughout] Pulse Rate [ Apical] Respiratory 20 18 Rate Respiratory 20 Rate [Anterior Bilateral Throughout] Blood Pressure 89/60 86/62 O2 Sat by Pulse 90 95 Oximetry 01/06/18 01/06/18 01/06/18 08:43 09:21 09:40 Temperature Pulse Rate Pulse Rate [ 70 Anterior Bilateral Throughout] Pulse Rate [ 120 H Apical] Respiratory 20 Rate Respiratory 20 Rate [Anterior Bilateral Throughout] Blood Pressure O2 Sat by Pulse 95 93 Oximetry 01/06/18 01/06/18 01/06/18 10:18 11:36 11:43 Temperature 97.5 F L Pulse Rate 109 H 113 H 108 H Pulse Rate [ Anterior Bilateral Throughout] Pulse Rate [ Apical] Respiratory 20 Rate Respiratory Rate [Anterior Bilateral Throughout] Blood Pressure 96/70 104/83 O2 Sat by Pulse 95 99 Oximetry - Labs CBC & Chem 7: 01/07/18 06:08 01/07/18 06:08 Labs: Abnormal lab results 01/05/18 01/06/18 Range/Units 15:31 05:43 Hgb 8.4 L 8.2 L (11.8-15.2) gm/dl Hct 26.4 L 25.7 L (35.5-45.6) %
--- NOTE | 2018-01-06 15:44 | Progress Note ---
Assessment and Plan GI bleed Hypotension secondary to GI bleed and dehydration Acute blood loss anemia Pneumonia, likely aspiration HFpEF--compensated Hypokalemia, Hepatitis C mitral valve stenosis (s/p replacement) GERD Bilateral pleural effusion -Supplemental oxygen to keep O2 sats>90% -Bronchodilaotrs -CXR imaging reviewed-significant right pleural effusion. Will get US guided thoracentesis. Discussed with the patient and his RN the need for it - plan for colonoscopy as an outpatient -VTE prophylaxis--SCDs -Diuresis -chronic home medications -PPI -Discharge planning once respiratory status improves Subjective Date of service: 01/06/18 Principal diagnosis: Acute GI bleeding; Acute Hypoxemic Resp Failure; Left pleural effusion Interval history: Pt seen and examined Patient with PMH of COPD, GERD, HTN, PE, hepatitis C, mitral valve stenosis (s/ p replacement), and GI bleeding due to AVMs who presented to ED with c/o vague symptoms. He was found to be hypotensive, H/H 6.6/21.1 with melenotic stool. s/p 2 unit PRBC transfusion, on 2mcg of norepinephrine No hematemesis or hematochezia. Denies CP, SOB, dizziness, abd pain, N/V, or LGI symptoms such as diarrhea or constipation. Takes iron supplement and Xarelto at home (unsure of last dose, patient noted to be a poor historian). Drinks 2-3 beers daily. No previous treatment for hep C. s/p EGD Seen and examined. Vitals, labs, medications, chart reviewed. 24 hour events reviewed. No acute overnight events reported. Colonoscopy as an outpatient per GI. Patient denies any chest pain, has shortness of breath. No fevers or chills. no abdominal pain. No active bleeding Objective Vital Signs - 12hr 01/06/18 01/06/18 01/06/18 05:46 07:36 08:00 Temperature 99.7 F H 98.4 F Pulse Rate 119 H 113 H Pulse Rate [ 69 Anterior Bilateral Throughout] Pulse Rate [ Apical] Pulse Rate [ Posterior Bilateral Throughout] Respiratory 20 18 Rate Respiratory 20 Rate [Anterior Bilateral Throughout] Respiratory Rate [Posterior Bilateral Throughout] Blood Pressure 89/60 86/62 O2 Sat by Pulse 90 95 Oximetry 01/06/18 01/06/18 01/06/18 08:43 09:21 09:40 Temperature Pulse Rate Pulse Rate [ 70 Anterior Bilateral Throughout] Pulse Rate [ 120 H Apical] Pulse Rate [ Posterior Bilateral Throughout] Respiratory 20 Rate Respiratory 20 Rate [Anterior Bilateral Throughout] Respiratory Rate [Posterior Bilateral Throughout] Blood Pressure O2 Sat by Pulse 95 93 Oximetry 01/06/18 01/06/18 01/06/18 10:18 11:36 11:43 Temperature 97.5 F L Pulse Rate 109 H 113 H 108 H Pulse Rate [ Anterior Bilateral Throughout] Pulse Rate [ Apical] Pulse Rate [ Posterior Bilateral Throughout] Respiratory 20 Rate Respiratory Rate [Anterior Bilateral Throughout] Respiratory Rate [Posterior Bilateral Throughout] Blood Pressure 96/70 104/83 O2 Sat by Pulse 95 99 Oximetry 01/06/18 01/06/18 15:27 15:33 Temperature Pulse Rate Pulse Rate [ 72 72 Anterior Bilateral Throughout] Pulse Rate [ Apical] Pulse Rate [ 72 72 Posterior Bilateral Throughout] Respiratory Rate Respiratory 18 20 Rate [Anterior Bilateral Throughout] Respiratory 18 20 Rate [Posterior Bilateral Throughout] Blood Pressure O2 Sat by Pulse Oximetry Constitutional: alert, appears uncomfortable, other (elderly looking AAM; normocephalic and atraumatic with mildly increased work of breathing) Eyes: non-icteric ENT: oropharynx moist, other (mallampati 2) Neck: supple, no lymphadenopathy, no JVD, other (no thyromegaly) Effort: mildly labored Ascultation: Bilateral: diminished breath sounds (bases), rales Percussion: Bilateral: not dull Cardiovascular: regular rate and rhythm, murmur noted, other (no rubs) Gastrointestinal: normoactive bowel sounds, soft, non-tender, non-distended, other (No HSM) Integumentary: other (poor turgor) Extremities: no cyanosis, pulses normal, no ischemia or petechiae, edema (1+ bilaterally) Neurologic: normal mental status, non-focal exam, pupils equal and round, motor strength normal and Psychiatric: mood appropriate, affect normal CBC and BMP: 01/07/18 06:08 01/07/18 06:08 ABG, PT/INR, D-dimer: PT/INR, D-dimer PT 17.6 Sec. (12.2-14.9) H 12/26/17 04:20 INR 1.36 (0.87-1.13) H 12/26/17 04:20 Abnormal lab findings: Abnormal Labs 12/23/17 12/23/17 12/23/17 20:00 20:00 20:00 RBC 2.43 L Hgb 6.6 L Hct 21.1 L MCH 27 L MCHC 31 L RDW 18.6 H Plt Count Lymph % (Auto) 11.0 L [place] % (Auto) 10.5 H Lymph # 0.9 L [place] # 0.9 H Seg Neutrophils % 76.6 H PT INR Sodium 129 L Potassium 3.3 L Chloride 90.9 L BUN 32 H Creatinine Glucose 116 H POC Glucose Calcium Total Bilirubin 3.80 H Direct Bilirubin 2.8 H AST 56 H NT-Pro-B Natriuret Pep Total Protein 6.2 L Albumin 2.6 L Hepatitis C Antibody Crossmatch 12/23/17 12/23/17 12/24/17 20:40 20:56 00:30 RBC Hgb Hct MCH MCHC RDW Plt Count Lymph % (Auto) [place] % (Auto) Lymph # [place] # Seg Neutrophils % PT 28.3 H INR 2.46 H Sodium Potassium Chloride BUN Creatinine Glucose POC Glucose Calcium Total Bilirubin Direct Bilirubin AST NT-Pro-B Natriuret Pep 4304 H Total Protein Albumin Hepatitis C Antibody Crossmatch See Detail 12/24/17 12/24/17 12/24/17 03:41 05:50 07:45 RBC Hgb 8.4 L 8.1 L Hct 26.3 L 24.5 L MCH MCHC RDW Plt Count Lymph % (Auto) [place] % (Auto) Lymph # [place] # Seg Neutrophils % PT INR Sodium Potassium Chloride BUN Creatinine Glucose POC Glucose 144 H Calcium Total Bilirubin Direct Bilirubin AST NT-Pro-B Natriuret Pep Total Protein Albumin Hepatitis C Antibody Crossmatch 12/24/17 12/25/17 12/25/17 12:18 04:45 04:45 RBC 2.70 L Hgb 7.5 L Hct 23.1 L MCH MCHC RDW 17.9 H Plt Count Lymph % (Auto) 4.8 L [place] % (Auto) 13.5 H Lymph # 0.4 L [place] # 1.3 H Seg Neutrophils % 81.5 H PT INR Sodium 136 L D Potassium Chloride BUN Creatinine Glucose 107 H POC Glucose 111 H Calcium Total Bilirubin Direct Bilirubin AST NT-Pro-B Natriuret Pep Total Protein Albumin Hepatitis C Antibody Crossmatch 12/25/17 12/25/17 12/26/17 04:45 04:45 04:20 RBC 3.09 L Hgb 8.6 L Hct 26.8 L MCH MCHC RDW 18.0 H Plt Count Lymph % (Auto) 6.9 L [place] % (Auto) 10.0 H Lymph # 0.6 L [place] # 0.9 H Seg Neutrophils % 82.1 H PT 18.2 H INR 1.42 H Sodium Potassium Chloride BUN Creatinine Glucose POC Glucose Calcium Total Bilirubin Direct Bilirubin AST NT-Pro-B Natriuret Pep Total Protein Albumin Hepatitis C Antibody Reactive A Crossmatch 12/26/17 12/27/17 12/27/17 04:20 14:25 14:25 RBC 3.11 L Hgb 8.7 L Hct 26.5 L MCH MCHC RDW 18.3 H Plt Count Lymph % (Auto) [place] % (Auto) Lymph # [place] # Seg Neutrophils % PT 17.6 H INR 1.36 H Sodium 135 L Potassium 3.4 L Chloride BUN Creatinine Glucose 132 H POC Glucose Calcium Total Bilirubin Direct Bilirubin AST NT-Pro-B Natriuret Pep Total Protein Albumin Hepatitis C Antibody Crossmatch 12/28/17 12/30/17 12/30/17 14:03 05:50 05:50 RBC 2.85 L Hgb 7.8 L Hct 24.1 L MCH 27 L MCHC RDW 17.3 H Plt Count Lymph % (Auto) 5.3 L [place] % (Auto) 11.2 H Lymph # 0.5 L [place] # 1.0 H Seg Neutrophils % 82.1 H PT INR Sodium 135 L 132 L Potassium Chloride 96.7 L BUN Creatinine 0.7 L 0.7 L Glucose POC Glucose Calcium 8.1 L Total Bilirubin 2.60 H Direct Bilirubin AST NT-Pro-B Natriuret Pep 5482 H Total Protein 5.4 L Albumin 2.4 L Hepatitis C Antibody Crossmatch 12/31/17 01/04/18 01/04/18 05:17 05:12 05:12 RBC 2.97 L Hgb 8.0 L 7.8 L Hct 24.2 L 24.9 L MCH 26 L MCHC 31 L RDW 18.3 H Plt Count 137 L Lymph % (Auto) 8.3 L [place] % (Auto) 14.0 H Lymph # 0.7 L [place] # 1.1 H Seg Neutrophils % 75.8 H PT INR Sodium 135 L Potassium Chloride BUN Creatinine 0.6 L Glucose POC Glucose Calcium Total Bilirubin Direct Bilirubin AST NT-Pro-B Natriuret Pep Total Protein Albumin Hepatitis C Antibody Crossmatch 01/05/18 01/06/18 15:31 05:43 RBC Hgb 8.4 L 8.2 L Hct 26.4 L 25.7 L MCH MCHC RDW Plt Count Lymph % (Auto) [place] % (Auto) Lymph # [place] # Seg Neutrophils % PT INR Sodium Potassium Chloride BUN Creatinine Glucose POC Glucose Calcium Total Bilirubin Direct Bilirubin AST NT-Pro-B Natriuret Pep Total Protein Albumin Hepatitis C Antibody Crossmatch Chest x-ray: image reviewed (Moderate right pleural effusion) Allied health notes reviewed: nursing
--- NOTE | 2018-01-06 16:50 | XRay Report ---
FINAL REPORT EXAM: XR CHEST 1V AP HISTORY: pleural effusion TECHNIQUE: X-ray chest, one view Comparison: Chest x-ray dated January 03, 2018 FINDINGS: There continues to be moderate size to large bilateral pleural fluid collections with associated pulmonary consolidation in both lung bases.. These may have slightly increased in size in the interval. There continues to be prominence of the interstitial markings in both lungs similar in appearance to the previous study. The cardiac silhouette is largely obscured by the pulmonary disease. There is a prosthetic cardiac valve. Median sternotomy wires are demonstrated. IMPRESSION: 1. Persistent moderate size to large bilateral pleural fluid collections with associated pulmonary consolidation which may have slightly increased in size in the interval. 2. Persistent prominence of the interstitial markings, probable interstitial edema. 3. Prosthetic cardiac valve. The cardiac silhouette is largely obscured by the pulmonary disease.
[2018-01-06] MEDS: LANOXIN PO SCH (17:10)
[2018-01-07 06:31] LABS: Hematocrit 23.9 % (35.5-45.6); Hemoglobin 7.6 gm/dl (11.8-15.2)
[2018-01-07 06:53] LABS: BUN/Creatinine Ratio 10; Blood Urea Nitrogen 7 mg/dL (9-20); Calcium 8.4 mg/dL (8.4-10.2); Hemolysis Index 22
[2018-01-07] MEDS: DUONEB *Not for PRN Use IH SCH ×3 (09:18→22:03)
[2018-01-07] MEDS: PROTONIX PO SCH ×2 (10:15→22:55)
[2018-01-07] MEDS: MUCINEX ER PO SCH ×2 (10:16→22:55)
[2018-01-07] MEDS: PROAMATINE PO SCH ×3 (10:16→17:54)
[2018-01-07] MEDS: LASIX IV SCH ×2 (10:17→14:12)
[2018-01-07] MEDS: SODIUM CHLORIDE FLUSH SYRINGE 10 ML IV SCH (10:17)
--- NOTE | 2018-01-07 11:02 | Progress Note ---
Assessment and Plan Assessment: Acute on chronic diastolic HF - EF 45-50% Cor pulmonale Severe pulmonary HTN - RVSP 73mmHg per echo in 10/2017 Mod to severe mitral stenosis - Following evaluation at [facility] in 10/2017, he was felt not to be a candidate for transcatheter mitral valve replacement "given that patient appears to be at risk for LVOT obstruction with V in V and significant RV dysfunction" per [place] structural heart team. He was discharged home on Xarelto in setting of MS. Bilateral pleural effusions s/p thoracentesis Pneumonia GI bleed / Severe anemia - s/p EGD and per GI, pt is a poor candidate overall for colonoscopy and OP pill camera will be planned. May consider outpatient colonoscopy in the future. May cautiously restart anticoagulation, if felt highly important. He will have some future risks of bleeding. 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 LV thrombus - BETY performed at the [facility] in 10/2017 reportedly showed "heavy smoke" with concern for possible thrombus and thus pt was initiated on Xarelto Sinus tachycardia - improving Hypotension Nonobstructive CAD H/o PE - was anticoagulated with Xarelto and then developed GIB in 10/2017 Plan: Cont present cardiac regimen. Follow pulmonary recs. Continue to hold oral anticoagulation in setting of anemia and recent GIB. PRBC tx per primary. H/H 7.6/23.9 this AM. Prognosis appears poor given inoperable candidate. Hospice care may be an appropriate option at this point. The patient has been seen in conjunction with Dr. Chandra who agrees with the assessment and plan of care. Subjective Date of service: 01/07/18 Principal diagnosis: Acute GI bleeding; Acute Hypoxemic Resp Failure; Left pleural effusion Interval history: pt resting comfortably in bed, no current complaints. tele reviewed - remains in sinus tachycardia with HR 100s - 110s. Infrequent brief runs NSVT noted overnight. Objective Last Vital Signs Temp 98.0 F 01/07/18 07:42 Pulse 109 H 01/07/18 09:41 Resp 18 01/07/18 09:41 BP 84/57 01/07/18 07:42 Pulse Ox 96 01/07/18 09:20 - Physical Examination General: No Apparent Distress HEENT: Positive: EOMI, Normocephaly, Mucus Membranes Moist Neck: Positive: neck supple, trachea midline, JVD/HJR (elevated) Cardiac: Positive: Regular Rhythm, S1/S2, Systolic Murmur, Tachycardia Lungs: Positive: Decreased Breath Sounds Neuro: Positive: Grossly Intact Abdomen: Positive: Soft, Active Bowel Sounds. Negative: Tender Skin: Positive: Clear. Negative: Rash Musculoskeletal: Normal Range of Motion Extremities: Absent: edema - Labs and Meds CBC 01/07/18 Range/Units 06:08 Hgb 7.6 L (11.8-15.2) gm/dl Hct 23.9 L (35.5-45.6) % Comprehensive Metabolic Panel 01/07/18 Range/Units 06:08 Sodium 133 L (137-145) mmol/L Potassium 3.7 (3.6-5.0) mmol/L Chloride 97.9 L (98-107) mmol/L Carbon Dioxide 22 (22-30) mmol/L BUN 7 L (9-20) mg/dL Creatinine 0.7 L (0.8-1.5) mg/dL Glucose 83 (75-100) mg/dL Calcium 8.4 (8.4-10.2) mg/dL - Imaging and Cardiology EKG: image reviewed Echo: report reviewed (12/27/2017: limited study, EF 45-50%, LA severely dilated , bioprosthetic MV, interventricular septal flattening c/w RV volume or pressure overload, RV mod dilated, RV systolic function mod to severely reduced , minimal pericardial effusion, large pleural effusion) Cardiac cath: report reviewed (10/28/2017: C at [facility] showed 35% proximal LAD stenosis, 30% mid LAD stenosis, 20% prox LCX stenosis, 50% prox RCA stenosis, 40 % mid RCA stenosis) - EKG Sinus rhythms and dysrhythmias: sinus tachycardia AV and intraventricular conduction: right bundle branch block - Allied health notes Allied health notes reviewed: nursing
--- NOTE | 2018-01-07 12:33 | Procedure Note ---
Date of procedure: 01/07/18 Pre-op diagnosis: right pleural effusion Post-op diagnosis: same Procedure: US thoracentesis Findings: moderate right pleural fluid Anesthesia: local Surgeon: FERCHO ARMENTA Estimated blood loss: none Pathology: list (120cc) Specimen disposition: to lab Condition: stable Disposition: floor
--- NOTE | 2018-01-07 12:36 | Ultrasound Report ---
ULTRASOUND THORACENTESIS History: Hypoxia, bilateral pleural effusions Description of procedure: Informed consent was obtained. Sterile technique was utilized. Using ultrasound guidance, a 5 Frisian centesis needle was advanced into the right pleural space. There was spontaneous return of yellow fluid. 1.1 L of fluid was aspirated. 120 cc of fluid was sent to the lab for analysis. No complications. Impression: Successful ultrasound-guided right thoracentesis.
--- NOTE | 2018-01-07 14:05 | XRay Report ---
AP CHEST: HISTORY: Short of breath Recent ultrasound-guided right thoracentesis was performed in which 1100 cc of fluid was removed. There is near-complete evacuation of the right pleural fluid. No pneumothorax is visualized. Reexpansion pulmonary edema is noted at the right lung base. There is a large left pleural effusion which compresses the left lower lobe and lingula. Mild cardiomegaly is suspected. Previous cardiac valve replacement changes. IMPRESSION: Near complete evacuation of the right pleural effusion. No pneumothorax.
--- NOTE | 2018-01-07 15:04 | Progress Note ---
Assessment and Plan Acute respiratory failure - Likely from underlying COPD with pleural effusion - had paracentesis today, will repeat CXR to r/o pneumothorax - cont nebs, get ABG, place on Bipap b/l pleural efusion L>R - s/p thoracentesis drained 1.5 L 12/29/17 and 1.1L today - cont on lasix Mitral valve stenosis with possible LV thrombus - Following evaluation at [facility] in 10/2017, he was felt not to be a candidate for transcatheter mitral valve replacement per [place] structural heart team. He was discharged home on Xarelto in setting of MS. - Per cardiology he is a poor candidate to start on AC for anemia and recent GI bleed, Now xarelto on hold GI bleed - s/p 3 units PRBC - EGD 12/25 showed two minute possible AVMs in 2nd portion, no active bleeding - colonoscopy postponded as patient back on levophed intermittently - plan for coloscopy outpt, advanced diet as tolerated - cont to follow h/h Hypotension secondary to GI bleed and dehydration - Started Levophed drip from ER, required intermittently - will cont on low dose midodrine Acute blood loss anemia, transfused, monitor H&H Pneumonia, likely aspiration - treated with IV Levaquin, Zosyn, negative blood cultures - stopped abx 12/30/17 Chronic CHF, diastolic dysfunction, stable - monitor volume status, Ef 45-50% - started on diuretic by cardiology, cont to monitor Hypokalemia, replete and monitor as needed Hepatitis C, need outpt follow up GERD, PPI DVT Px - SCD Disposition: PT consulted, recommended HH with supportive care vs [facility]: patient is unfunded. Cardiology recommended hospice for inoperable MS, discussed with patient and he agrees. CM notified Physical exam: General appearance: Present: mild distress - EENT Eyes: PERRL, EOM intact ENT: hearing intact, clear oral mucosa Ears: bilateral: normal - Neck Neck: supple, normal ROM - Respiratory Respiratory effort: tachycardic Respiratory: bilateral: Coarse Bs b/l - Cardiovascular Rhythm: regular Heart Sounds: Present: S1 & S2. Absent: gallop, rub Extremities: pulses intact, normal color, Full ROM - Gastrointestinal General gastrointestinal: Present: soft, non-tender, non-distended, normal bowel sounds - Integumentary Integumentary: clear, warm, dry - Musculoskeletal Musculoskeletal: 1, strength equal bilaterally - Neurologic Neurologic: moves all extremities - Psychiatric Psychiatric: memory intact, appropriate mood/affect, intact judgment & insight Subjective Date of service: 01/07/18 Principal diagnosis: Acute GI bleeding; Acute Hypoxemic Resp Failure; Left pleural effusion Interval history: Pt seen and examined DISCUSSED WITH CARDIOLOGY, RECOMMENDED HOSPICE, pending [facility] approval s/p 2nd rounf thoracentesis today Following thoracentesis developed respiratory distress Objective - Constitutional Vitals: Vital Signs - 12hr 01/07/18 01/07/18 01/07/18 04:38 07:42 09:18 Temperature 98.6 F 98.0 F Pulse Rate 107 H Pulse Rate [ 111 H Anterior Bilateral Throughout] Pulse Rate [ Left Dorsalis Pedis] Respiratory 17 18 Rate Respiratory 20 Rate [Anterior Bilateral Throughout] Blood Pressure 92/69 84/57 O2 Sat by Pulse 98 Oximetry 01/07/18 01/07/18 01/07/18 09:20 09:41 11:16 Temperature Pulse Rate Pulse Rate [ 109 H Anterior Bilateral Throughout] Pulse Rate [ 100 H Left Dorsalis Pedis] Respiratory 20 Rate Respiratory 18 Rate [Anterior Bilateral Throughout] Blood Pressure O2 Sat by Pulse 96 Oximetry 01/07/18 01/07/18 13:56 14:04 Temperature Pulse Rate Pulse Rate [ 114 H 111 H Anterior Bilateral Throughout] Pulse Rate [ Left Dorsalis Pedis] Respiratory Rate Respiratory 20 20 Rate [Anterior Bilateral Throughout] Blood Pressure O2 Sat by Pulse Oximetry - Labs CBC & Chem 7: 01/07/18 06:08 01/07/18 06:08 Labs: Abnormal lab results 01/07/18 01/07/18 Range/Units 06:08 06:08 Hgb 7.6 L (11.8-15.2) gm/dl Hct 23.9 L (35.5-45.6) % Sodium 133 L (137-145) mmol/L Chloride 97.9 L (98-107) mmol/L BUN 7 L (9-20) mg/dL Creatinine 0.7 L (0.8-1.5) mg/dL
[2018-01-07] MEDS ORDERED: DUONEB *Not for PRN Use IH ONE (16:30)
[2018-01-07] MEDS: LANOXIN PO SCH (17:54)
--- NOTE | 2018-01-07 19:16 | Progress Note ---
Assessment and Plan Patient sleeping at this time.Patients blood gases showed PO2 47 on 3 litres O2.Patient placed On venturi mask, FIO2 50% , O2 saturation 90%.No acute respiratory distress.Patient also undergone right thoracentesis.No Pneumothorax.Pleural fluid results pending. - Patient Problems (1) Acute on chronic diastolic HF (heart failure) Current Visit: Yes Status: Acute Plan to address problem: Mangement as per cardiology. (2) Pleural effusion Current Visit: Yes Status: Acute Plan to address problem: Undergone right thoracentesis today. Results pending. (3) Hypotension Current Visit: Yes Status: Acute Plan to address problem: blood pressure still running on low side. . Blood pressure 84/59 (4) UGIB (upper gastrointestinal bleed) Current Visit: Yes Status: Acute Plan to address problem: Management as per [facility] Handler. (5) Acute blood loss anemia Current Visit: No Status: Acute Plan to address problem: Management as per primary care. (6) CAD (coronary artery disease) Current Visit: Yes Status: Chronic Qualifiers: Coronary Disease-Associated Artery/Lesion type: [place] artery Plan to address problem: Management as per cardiology. (7) History of mitral valve replacement with bioprosthetic valve Current Visit: Yes Status: Chronic Plan to address problem: Management as per cardiology. (8) Moderate to severe pulmonary hypertension Current Visit: Yes Status: Chronic Plan to address problem: Likely secondary to cardiac problems. Also need pulmonary work up as out patient Like PFTs etc. Subjective Date of service: 01/07/18 Principal diagnosis: Acute GI bleeding; Acute Hypoxemic Resp Failure; Left pleural effusion Interval history: Patient sleeping at this time.Patients blood gases showed PO2 47 on 3 litres O2.Patient placed On venturi mask, FIO2 50% , O2 saturation 90%.No acute respiratory distress.Patient also undergone right thoracentesis.No Pneumothorax.Pleural fluid results pending. Objective Vital Signs - 12hr 01/07/18 01/07/18 01/07/18 07:42 09:18 09:20 Temperature 98.0 F Pulse Rate 107 H Pulse Rate [ 111 H Anterior Bilateral Throughout] Pulse Rate [ Left Dorsalis Pedis] Respiratory 18 Rate Respiratory 20 Rate [Anterior Bilateral Throughout] Blood Pressure 84/57 Blood Pressure [Right] O2 Sat by Pulse 98 96 Oximetry 01/07/18 01/07/18 01/07/18 09:41 11:16 13:04 Temperature 97.5 F L Pulse Rate 121 H Pulse Rate [ 109 H Anterior Bilateral Throughout] Pulse Rate [ 100 H Left Dorsalis Pedis] Respiratory 20 24 Rate Respiratory 18 Rate [Anterior Bilateral Throughout] Blood Pressure 107/80 Blood Pressure [Right] O2 Sat by Pulse 88 Oximetry 01/07/18 01/07/18 01/07/18 13:56 14:04 14:10 Temperature Pulse Rate 121 H Pulse Rate [ 114 H 111 H Anterior Bilateral Throughout] Pulse Rate [ Left Dorsalis Pedis] Respiratory Rate Respiratory 20 20 Rate [Anterior Bilateral Throughout] Blood Pressure Blood Pressure 103/73 [Right] O2 Sat by Pulse Oximetry 01/07/18 01/07/18 01/07/18 15:30 15:39 15:40 Temperature Pulse Rate 136 H Pulse Rate [ 138 H 138 H Anterior Bilateral Throughout] Pulse Rate [ Left Dorsalis Pedis] Respiratory 49 H Rate Respiratory 44 H 48 H Rate [Anterior Bilateral Throughout] Blood Pressure 84/57 Blood Pressure [Right] O2 Sat by Pulse 88 Oximetry 01/07/18 01/07/18 15:45 17:11 Temperature 97.5 F L Pulse Rate 136 H Pulse Rate [ Anterior Bilateral Throughout] Pulse Rate [ Left Dorsalis Pedis] Respiratory 24 Rate Respiratory Rate [Anterior Bilateral Throughout] Blood Pressure 84/59 Blood Pressure [Right] O2 Sat by Pulse 90 89 Oximetry Constitutional: no acute distress, asleep Eyes: non-icteric ENT: oropharynx moist, other (mallampati 2) Neck: supple, no lymphadenopathy, no JVD, other (no thyromegaly) Effort: mildly labored Ascultation: Bilateral: diminished breath sounds (bases), rales Percussion: Bilateral: not dull Cardiovascular: regular rate and rhythm, murmur noted, other (no rubs) Gastrointestinal: normoactive bowel sounds, soft, non-tender, non-distended, other (No HSM) Integumentary: other (poor turgor) Extremities: no cyanosis, pulses normal, no ischemia or petechiae, edema (1+ bilaterally) Neurologic: normal mental status, non-focal exam, pupils equal and round, motor strength normal and Psychiatric: mood appropriate, affect normal CBC and BMP: 01/07/18 06:08 01/07/18 06:08 ABG, PT/INR, D-dimer: ABG POC ABG pH 7.480 (7.35-7.45) H 01/07/18 15:41 POC ABG pCO2 26.4 (35-45) L 01/07/18 15:41 POC ABG pO2 47 (80-105) L 01/07/18 15:41 POC ABG HCO3 19.7 01/07/18 15:41 POC ABG Total CO2 20 01/07/18 15:41 POC ABG O2 Sat 86 01/07/18 15:41 PT/INR, D-dimer PT 17.6 Sec. (12.2-14.9) H 12/26/17 04:20 INR 1.36 (0.87-1.13) H 12/26/17 04:20 Abnormal lab findings: Abnormal Labs 12/23/17 12/23/17 12/23/17 20:00 20:00 20:00 RBC 2.43 L Hgb 6.6 L Hct 21.1 L MCH 27 L MCHC 31 L RDW 18.6 H Plt Count Lymph % (Auto) 11.0 L [place] % (Auto) 10.5 H Lymph # 0.9 L [place] # 0.9 H Seg Neutrophils % 76.6 H PT INR POC ABG pH POC ABG pCO2 POC ABG pO2 Sodium 129 L Potassium 3.3 L Chloride 90.9 L BUN 32 H Creatinine Glucose 116 H POC Glucose Calcium Total Bilirubin 3.80 H Direct Bilirubin 2.8 H AST 56 H NT-Pro-B Natriuret Pep Total Protein 6.2 L Albumin 2.6 L Hepatitis C Antibody Crossmatch 12/23/17 12/23/17 12/24/17 20:40 20:56 00:30 RBC Hgb Hct MCH MCHC RDW Plt Count Lymph % (Auto) [place] % (Auto) Lymph # [place] # Seg Neutrophils % PT 28.3 H INR 2.46 H POC ABG pH POC ABG pCO2 POC ABG pO2 Sodium Potassium Chloride BUN Creatinine Glucose POC Glucose Calcium Total Bilirubin Direct Bilirubin AST NT-Pro-B Natriuret Pep 4304 H Total Protein Albumin Hepatitis C Antibody Crossmatch See Detail 12/24/17 12/24/17 12/24/17 03:41 05:50 07:45 RBC Hgb 8.4 L 8.1 L Hct 26.3 L 24.5 L MCH MCHC RDW Plt Count Lymph % (Auto) [place] % (Auto) Lymph # [place] # Seg Neutrophils % PT INR POC ABG pH POC ABG pCO2 POC ABG pO2 Sodium Potassium Chloride BUN Creatinine Glucose POC Glucose 144 H Calcium Total Bilirubin Direct Bilirubin AST NT-Pro-B Natriuret Pep Total Protein Albumin Hepatitis C Antibody Crossmatch 12/24/17 12/25/17 12/25/17 12:18 04:45 04:45 RBC 2.70 L Hgb 7.5 L Hct 23.1 L MCH MCHC RDW 17.9 H Plt Count Lymph % (Auto) 4.8 L [place] % (Auto) 13.5 H Lymph # 0.4 L [place] # 1.3 H Seg Neutrophils % 81.5 H PT INR POC ABG pH POC ABG pCO2 POC ABG pO2 Sodium 136 L D Potassium Chloride BUN Creatinine Glucose 107 H POC Glucose 111 H Calcium Total Bilirubin Direct Bilirubin AST NT-Pro-B Natriuret Pep Total Protein Albumin Hepatitis C Antibody Crossmatch 12/25/17 12/25/17 12/26/17 04:45 04:45 04:20 RBC 3.09 L Hgb 8.6 L Hct 26.8 L MCH MCHC RDW 18.0 H Plt Count Lymph % (Auto) 6.9 L [place] % (Auto) 10.0 H Lymph # 0.6 L [place] # 0.9 H Seg Neutrophils % 82.1 H PT 18.2 H INR 1.42 H POC ABG pH POC ABG pCO2 POC ABG pO2 Sodium Potassium Chloride BUN Creatinine Glucose POC Glucose Calcium Total Bilirubin Direct Bilirubin AST NT-Pro-B Natriuret Pep Total Protein Albumin Hepatitis C Antibody Reactive A Crossmatch 12/26/17 12/27/17 12/27/17 04:20 14:25 14:25 RBC 3.11 L Hgb 8.7 L Hct 26.5 L MCH MCHC RDW 18.3 H Plt Count Lymph % (Auto) [place] % (Auto) Lymph # [place] # Seg Neutrophils % PT 17.6 H INR 1.36 H POC ABG pH POC ABG pCO2 POC ABG pO2 Sodium 135 L Potassium 3.4 L Chloride BUN Creatinine Glucose 132 H POC Glucose Calcium Total Bilirubin Direct Bilirubin AST NT-Pro-B Natriuret Pep Total Protein Albumin Hepatitis C Antibody Crossmatch 12/28/17 12/30/17 12/30/17 14:03 05:50 05:50 RBC 2.85 L Hgb 7.8 L Hct 24.1 L MCH 27 L MCHC RDW 17.3 H Plt Count Lymph % (Auto) 5.3 L [place] % (Auto) 11.2 H Lymph # 0.5 L [place] # 1.0 H Seg Neutrophils % 82.1 H PT INR POC ABG pH POC ABG pCO2 POC ABG pO2 Sodium 135 L 132 L Potassium Chloride 96.7 L BUN Creatinine 0.7 L 0.7 L Glucose POC Glucose Calcium 8.1 L Total Bilirubin 2.60 H Direct Bilirubin AST NT-Pro-B Natriuret Pep 5482 H Total Protein 5.4 L Albumin 2.4 L Hepatitis C Antibody Crossmatch 12/31/17 01/04/18 01/04/18 05:17 05:12 05:12 RBC 2.97 L Hgb 8.0 L 7.8 L Hct 24.2 L 24.9 L MCH 26 L MCHC 31 L RDW 18.3 H Plt Count 137 L Lymph % (Auto) 8.3 L [place] % (Auto) 14.0 H Lymph # 0.7 L [place] # 1.1 H Seg Neutrophils % 75.8 H PT INR POC ABG pH POC ABG pCO2 POC ABG pO2 Sodium 135 L Potassium Chloride BUN Creatinine 0.6 L Glucose POC Glucose Calcium Total Bilirubin Direct Bilirubin AST NT-Pro-B Natriuret Pep Total Protein Albumin Hepatitis C Antibody Crossmatch 01/05/18 01/06/18 01/07/18 15:31 05:43 06:08 RBC Hgb 8.4 L 8.2 L 7.6 L Hct 26.4 L 25.7 L 23.9 L MCH MCHC RDW Plt Count Lymph % (Auto) [place] % (Auto) Lymph # [place] # Seg Neutrophils % PT INR POC ABG pH POC ABG pCO2 POC ABG pO2 Sodium Potassium Chloride BUN Creatinine Glucose POC Glucose Calcium Total Bilirubin Direct Bilirubin AST NT-Pro-B Natriuret Pep Total Protein Albumin Hepatitis C Antibody Crossmatch 01/07/18 01/07/18 06:08 15:41 RBC Hgb Hct MCH MCHC RDW Plt Count Lymph % (Auto) [place] % (Auto) Lymph # [place] # Seg Neutrophils % PT INR POC ABG pH 7.480 H POC ABG pCO2 26.4 L POC ABG pO2 47 L Sodium 133 L Potassium Chloride 97.9 L BUN 7 L Creatinine 0.7 L Glucose POC Glucose Calcium Total Bilirubin Direct Bilirubin AST NT-Pro-B Natriuret Pep Total Protein Albumin Hepatitis C Antibody Crossmatch Chest x-ray: report reviewed (Patient undergone right thoracentesis.No Pneumothorax.), image reviewed Allied health notes reviewed: nursing
[2018-01-08] MEDS ORDERED: NACL 0.9% 250ML 250 ML IV ONE (01:18)
[2018-01-08 07:05] LABS: Hematocrit 24.6 % (35.5-45.6); Hemoglobin 7.8 gm/dl (11.8-15.2)
[2018-01-08] MEDS ORDERED: PROAMATINE PO SCH (08:04)
[2018-01-08] MEDS: SODIUM CHLORIDE FLUSH SYRINGE 10 ML IV SCH ×3 (10:41→22:03)
[2018-01-08] MEDS: MUCINEX ER PO SCH ×2 (10:41→22:02)
[2018-01-08] MEDS: PROTONIX PO SCH ×2 (10:41→22:02)
[2018-01-08] MEDS: LASIX IV SCH (10:41)
--- NOTE | 2018-01-08 11:08 | Progress Note ---
Assessment and Plan Assessment: Acute on chronic diastolic HF - EF 45-50% Cor pulmonale Severe pulmonary HTN - RVSP 73mmHg per echo in 10/2017 Mod to severe mitral stenosis - Following evaluation at [facility] in 10/2017, he was felt not to be a candidate for transcatheter mitral valve replacement "given that patient appears to be at risk for LVOT obstruction with V in V and significant RV dysfunction" per [place] structural heart team. He was discharged home on Xarelto in setting of MS. Bilateral pleural effusions s/p thoracentesis Pneumonia GI bleed / Severe anemia - s/p EGD and per GI, pt is a poor candidate overall for colonoscopy and OP pill camera will be planned. May consider outpatient colonoscopy in the future. May cautiously restart anticoagulation, if felt highly important. He will have some future risks of bleeding. 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 LV thrombus - BETY performed at the [facility] in 10/2017 reportedly showed "heavy smoke" with concern for possible thrombus and thus pt was initiated on Xarelto Sinus tachycardia - improving Hypotension Nonobstructive CAD H/o PE - was anticoagulated with Xarelto and then developed GIB in 10/2017 Plan: S/p thoracentesis yesterday. D/c digoxin and cont all other present cardiac regimen. Follow pulmonary recs. Do not recommend resumption of systemic anticoagulation in setting of persistent of anemia and multiple GI bleeds. PRBC tx per primary. H/H 7.8/24.6 this AM. Prognosis appears poor given inoperable candidate. Hospice care may be an appropriate option at this point. The patient has been seen in conjunction with Dr. Chandra who agrees with the assessment and plan of care. Subjective Date of service: 01/08/18 Principal diagnosis: Acute GI bleeding; Acute Hypoxemic Resp Failure; Left pleural effusion Interval history: pt resting comfortably in bed, no current complaints. tele reviewed - remains in sinus tachycardia with HR 100s - 110s. Infrequent brief runs NSVT noted overnight. Objective Last Vital Signs Temp 98.6 F 01/08/18 07:23 Pulse 114 H 01/08/18 07:23 Resp 19 01/08/18 07:23 BP 83/52 01/08/18 07:23 Pulse Ox 100 01/08/18 07:23 - Physical Examination General: No Apparent Distress HEENT: Positive: EOMI, Normocephaly, Mucus Membranes Moist Neck: Positive: neck supple, trachea midline, JVD/HJR (elevated) Cardiac: Positive: Regular Rhythm, S1/S2 Lungs: Positive: Decreased Breath Sounds Neuro: Positive: Grossly Intact Abdomen: Positive: Soft, Active Bowel Sounds. Negative: Tender Skin: Positive: Clear. Negative: Rash Musculoskeletal: Normal Range of Motion Extremities: Absent: edema - Labs and Meds CBC 01/08/18 Range/Units 06:05 Hgb 7.8 L (11.8-15.2) gm/dl Hct 24.6 L (35.5-45.6) % - Imaging and Cardiology EKG: image reviewed Echo: report reviewed (12/27/2017: limited study, EF 45-50%, LA severely dilated , bioprosthetic MV, interventricular septal flattening c/w RV volume or pressure overload, RV mod dilated, RV systolic function mod to severely reduced , minimal pericardial effusion, large pleural effusion) Cardiac cath: report reviewed (10/28/2017: C at [place] showed 35% proximal LAD stenosis, 30% mid LAD stenosis, 20% prox LCX stenosis, 50% prox RCA stenosis, 40 % mid RCA stenosis) - EKG Sinus rhythms and dysrhythmias: sinus tachycardia AV and intraventricular conduction: right bundle branch block - Allied health notes Allied health notes reviewed: nursing
[2018-01-08] MEDS: DUONEB *Not for PRN Use IH SCH ×3 (11:16→20:37)
[2018-01-08] MEDS ORDERED: PNEUMOVAX 23 IM ONE (12:00)
--- NOTE | 2018-01-08 13:04 | Progress Note ---
Assessment and Plan Acute hypoxic respiratory failure - Likely from underlying COPD with pleural effusion - repeat CXR following thoracentesis showed no pneumothorax - cont nebs, and wean off O2 as tolerated b/l pleural efusion L>R - s/p thoracentesis drained 1.5 L 12/29/17 and 1.1L 01/07/18 - cont on lasix Mitral valve stenosis with possible LV thrombus - Following evaluation at [facility] in 10/2017, he was felt not to be a candidate for transcatheter mitral valve replacement per [place] structural heart team. He was discharged home on Xarelto in setting of MS. - Per cardiology he is a poor candidate to start on AC for anemia and recent GI bleed, Now xarelto on hold GI bleed - s/p 3 units PRBC - EGD 12/25 showed two minute possible AVMs in 2nd portion, no active bleeding - colonoscopy postponded as patient back on levophed intermittently - plan for coloscopy outpt, advanced diet as tolerated - cont to follow h/h Hypotension secondary to GI bleed and dehydration - Started Levophed drip from ER, required intermittently - will cont on low dose midodrine Acute blood loss anemia, transfused, monitor H&H Pneumonia, likely aspiration - treated with IV Levaquin, Zosyn, negative blood cultures - stopped abx 12/30/17 Chronic CHF, diastolic dysfunction, stable - monitor volume status, Ef 45-50% - started on diuretic by cardiology, cont to monitor Hypokalemia, replete and monitor as needed Hepatitis C, need outpt follow up GERD, PPI DVT Px - SCD Disposition: PT consulted, recommended HH with supportive care vs [facility]: patient is unfunded. Cardiology recommended hospice for inoperable MS, discussed with patient and he agrees. CM notified Physical exam: General appearance: Present: mild distress - EENT Eyes: PERRL, EOM intact ENT: hearing intact, clear oral mucosa Ears: bilateral: normal - Neck Neck: supple, normal ROM - Respiratory Respiratory effort: tachycardic Respiratory: bilateral: Coarse Bs b/l - Cardiovascular Rhythm: regular Heart Sounds: Present: S1 & S2. Absent: gallop, rub Extremities: pulses intact, normal color, Full ROM - Gastrointestinal General gastrointestinal: Present: soft, non-tender, non-distended, normal bowel sounds - Integumentary Integumentary: clear, warm, dry - Musculoskeletal Musculoskeletal: 1, strength equal bilaterally - Neurologic Neurologic: moves all extremities - Psychiatric Psychiatric: memory intact, appropriate mood/affect, intact judgment & insight Subjective Date of service: 01/08/18 Principal diagnosis: Acute GI bleeding; Acute Hypoxemic Resp Failure; Left pleural effusion Interval history: Pt seen and examined DISCUSSED WITH CARDIOLOGY, RECOMMENDED HOSPICE, pending [facility] approval s/p 2nd round thoracentesis yesterday Following thoracentesis developed respiratory distress, since then on ventomask states breathing much better today, still very hypoxic Objective - Constitutional Vitals: Vital Signs - 12hr 01/08/18 01/08/18 05:09 07:23 Temperature 97.9 F 98.6 F Pulse Rate 114 H Respiratory 17 19 Rate Blood Pressure 82/53 83/52 O2 Sat by Pulse 100 Oximetry - Labs CBC & Chem 7: 01/08/18 06:05 01/07/18 06:08 Labs: Abnormal lab results 01/07/18 01/08/18 Range/Units 15:41 06:05 Hgb 7.8 L (11.8-15.2) gm/dl Hct 24.6 L (35.5-45.6) % POC ABG pH 7.480 H (7.35-7.45) POC ABG pCO2 26.4 L (35-45) POC ABG pO2 47 L (80-105)
[2018-01-08] MEDS: PROAMATINE PO SCH ×2 (13:08→17:16)
[2018-01-08] MEDS: TYLENOL PO PRN (13:13)
[2018-01-08] MEDS: SUDAFED PO PRN (13:13)
--- NOTE | 2018-01-08 13:58 | Progress Note ---
Assessment and Plan Patient sleeping at this time.Patients blood gases showed PO2 47 on 3 litres O2.Patient placed On venturi mask, FIO2 50% , O2 saturation 98%.No acute respiratory distress.Patient also undergone right thoracentesis yesterday.No Pneumothorax.Pleural fluid results still pending. - Patient Problems (1) Acute on chronic diastolic HF (heart failure) Current Visit: Yes Status: Acute Plan to address problem: Mangement as per cardiology. (2) Pleural effusion Current Visit: Yes Status: Acute Plan to address problem: Undergone right thoracentesis today. Results pending. (3) Hypotension Current Visit: Yes Status: Acute Plan to address problem: blood pressure still running on low side. . Blood pressure 86/60 (4) UGIB (upper gastrointestinal bleed) Current Visit: Yes Status: Acute Plan to address problem: Management as per It Generalist. (5) Acute blood loss anemia Current Visit: No Status: Acute Plan to address problem: Management as per primary care. (6) CAD (coronary artery disease) Current Visit: Yes Status: Chronic Qualifiers: Coronary Disease-Associated Artery/Lesion type: galena artery Plan to address problem: Management as per cardiology. (7) History of mitral valve replacement with bioprosthetic valve Current Visit: Yes Status: Chronic Plan to address problem: Management as per cardiology. (8) Moderate to severe pulmonary hypertension Current Visit: Yes Status: Chronic Plan to address problem: Likely secondary to cardiac problems. Also need pulmonary work up as out patient Like PFTs etc. Subjective Date of service: 01/08/18 Principal diagnosis: Acute GI bleeding; Acute Hypoxemic Resp Failure; Left pleural effusion Interval history: Patient sleeping at this time.Patients blood gases showed PO2 47 on 3 litres O2.Patient placed On venturi mask, FIO2 50% , O2 saturation 98%.No acute respiratory distress.Patient also undergone right thoracentesis yesterday.No Pneumothorax.Pleural fluid results still pending. Objective Vital Signs - 12hr 01/08/18 01/08/18 05:09 07:23 Temperature 97.9 F 98.6 F Pulse Rate 114 H Respiratory 17 19 Rate Blood Pressure 82/53 83/52 O2 Sat by Pulse 100 Oximetry Constitutional: no acute distress, asleep Eyes: non-icteric ENT: oropharynx moist, other (mallampati 2) Neck: supple, no lymphadenopathy, no JVD, other (no thyromegaly) Effort: mildly labored Ascultation: Bilateral: diminished breath sounds (bases), rales Percussion: Bilateral: not dull Cardiovascular: regular rate and rhythm, murmur noted, other (no rubs) Gastrointestinal: normoactive bowel sounds, soft, non-tender, non-distended, other (No HSM) Integumentary: other (poor turgor) Extremities: no cyanosis, pulses normal, no ischemia or petechiae, edema (1+ bilaterally) Neurologic: normal mental status, non-focal exam, pupils equal and round, motor strength normal and Psychiatric: mood appropriate, affect normal CBC and BMP: 01/08/18 06:05 01/07/18 06:08 ABG, PT/INR, D-dimer: ABG POC ABG pH 7.480 (7.35-7.45) H 01/07/18 15:41 POC ABG pCO2 26.4 (35-45) L 01/07/18 15:41 POC ABG pO2 47 (80-105) L 01/07/18 15:41 POC ABG HCO3 19.7 01/07/18 15:41 POC ABG Total CO2 20 01/07/18 15:41 POC ABG O2 Sat 86 01/07/18 15:41 PT/INR, D-dimer PT 17.6 Sec. (12.2-14.9) H 12/26/17 04:20 INR 1.36 (0.87-1.13) H 12/26/17 04:20 Abnormal lab findings: Abnormal Labs 12/23/17 12/23/17 12/23/17 20:00 20:00 20:00 RBC 2.43 L Hgb 6.6 L Hct 21.1 L MCH 27 L MCHC 31 L RDW 18.6 H Plt Count Lymph % (Auto) 11.0 L [place] % (Auto) 10.5 H Lymph # 0.9 L [place] # 0.9 H Seg Neutrophils % 76.6 H PT INR POC ABG pH POC ABG pCO2 POC ABG pO2 Sodium 129 L Potassium 3.3 L Chloride 90.9 L BUN 32 H Creatinine Glucose 116 H POC Glucose Calcium Total Bilirubin 3.80 H Direct Bilirubin 2.8 H AST 56 H NT-Pro-B Natriuret Pep Total Protein 6.2 L Albumin 2.6 L Hepatitis C Antibody Crossmatch 12/23/17 12/23/17 12/24/17 20:40 20:56 00:30 RBC Hgb Hct MCH MCHC RDW Plt Count Lymph % (Auto) [place] % (Auto) Lymph # [place] # Seg Neutrophils % PT 28.3 H INR 2.46 H POC ABG pH POC ABG pCO2 POC ABG pO2 Sodium Potassium Chloride BUN Creatinine Glucose POC Glucose Calcium Total Bilirubin Direct Bilirubin AST NT-Pro-B Natriuret Pep 4304 H Total Protein Albumin Hepatitis C Antibody Crossmatch See Detail 12/24/17 12/24/17 12/24/17 03:41 05:50 07:45 RBC Hgb 8.4 L 8.1 L Hct 26.3 L 24.5 L MCH MCHC RDW Plt Count Lymph % (Auto) [place] % (Auto) Lymph # [place] # Seg Neutrophils % PT INR POC ABG pH POC ABG pCO2 POC ABG pO2 Sodium Potassium Chloride BUN Creatinine Glucose POC Glucose 144 H Calcium Total Bilirubin Direct Bilirubin AST NT-Pro-B Natriuret Pep Total Protein Albumin Hepatitis C Antibody Crossmatch 12/24/17 12/25/17 12/25/17 12:18 04:45 04:45 RBC 2.70 L Hgb 7.5 L Hct 23.1 L MCH MCHC RDW 17.9 H Plt Count Lymph % (Auto) 4.8 L [place] % (Auto) 13.5 H Lymph # 0.4 L [place] # 1.3 H Seg Neutrophils % 81.5 H PT INR POC ABG pH POC ABG pCO2 POC ABG pO2 Sodium 136 L D Potassium Chloride BUN Creatinine Glucose 107 H POC Glucose 111 H Calcium Total Bilirubin Direct Bilirubin AST NT-Pro-B Natriuret Pep Total Protein Albumin Hepatitis C Antibody Crossmatch 12/25/17 12/25/17 12/26/17 04:45 04:45 04:20 RBC 3.09 L Hgb 8.6 L Hct 26.8 L MCH MCHC RDW 18.0 H Plt Count Lymph % (Auto) 6.9 L [place] % (Auto) 10.0 H Lymph # 0.6 L [place] # 0.9 H Seg Neutrophils % 82.1 H PT 18.2 H INR 1.42 H POC ABG pH POC ABG pCO2 POC ABG pO2 Sodium Potassium Chloride BUN Creatinine Glucose POC Glucose Calcium Total Bilirubin Direct Bilirubin AST NT-Pro-B Natriuret Pep Total Protein Albumin Hepatitis C Antibody Reactive A Crossmatch 12/26/17 12/27/17 12/27/17 04:20 14:25 14:25 RBC 3.11 L Hgb 8.7 L Hct 26.5 L MCH MCHC RDW 18.3 H Plt Count Lymph % (Auto) [place] % (Auto) Lymph # [place] # Seg Neutrophils % PT 17.6 H INR 1.36 H POC ABG pH POC ABG pCO2 POC ABG pO2 Sodium 135 L Potassium 3.4 L Chloride BUN Creatinine Glucose 132 H POC Glucose Calcium Total Bilirubin Direct Bilirubin AST NT-Pro-B Natriuret Pep Total Protein Albumin Hepatitis C Antibody Crossmatch 12/28/17 12/30/17 12/30/17 14:03 05:50 05:50 RBC 2.85 L Hgb 7.8 L Hct 24.1 L MCH 27 L MCHC RDW 17.3 H Plt Count Lymph % (Auto) 5.3 L [place] % (Auto) 11.2 H Lymph # 0.5 L [place] # 1.0 H Seg Neutrophils % 82.1 H PT INR POC ABG pH POC ABG pCO2 POC ABG pO2 Sodium 135 L 132 L Potassium Chloride 96.7 L BUN Creatinine 0.7 L 0.7 L Glucose POC Glucose Calcium 8.1 L Total Bilirubin 2.60 H Direct Bilirubin AST NT-Pro-B Natriuret Pep 5482 H Total Protein 5.4 L Albumin 2.4 L Hepatitis C Antibody Crossmatch 12/31/17 01/04/18 01/04/18 05:17 05:12 05:12 RBC 2.97 L Hgb 8.0 L 7.8 L Hct 24.2 L 24.9 L MCH 26 L MCHC 31 L RDW 18.3 H Plt Count 137 L Lymph % (Auto) 8.3 L [place] % (Auto) 14.0 H Lymph # 0.7 L [place] # 1.1 H Seg Neutrophils % 75.8 H PT INR POC ABG pH POC ABG pCO2 POC ABG pO2 Sodium 135 L Potassium Chloride BUN Creatinine 0.6 L Glucose POC Glucose Calcium Total Bilirubin Direct Bilirubin AST NT-Pro-B Natriuret Pep Total Protein Albumin Hepatitis C Antibody Crossmatch 01/05/18 01/06/18 01/07/18 15:31 05:43 06:08 RBC Hgb 8.4 L 8.2 L 7.6 L Hct 26.4 L 25.7 L 23.9 L MCH MCHC RDW Plt Count Lymph % (Auto) [place] % (Auto) Lymph # [place] # Seg Neutrophils % PT INR POC ABG pH POC ABG pCO2 POC ABG pO2 Sodium Potassium Chloride BUN Creatinine Glucose POC Glucose Calcium Total Bilirubin Direct Bilirubin AST NT-Pro-B Natriuret Pep Total Protein Albumin Hepatitis C Antibody Crossmatch 01/07/18 01/07/18 01/08/18 06:08 15:41 06:05 RBC Hgb 7.8 L Hct 24.6 L MCH MCHC RDW Plt Count Lymph % (Auto) [place] % (Auto) Lymph # [place] # Seg Neutrophils % PT INR POC ABG pH 7.480 H POC ABG pCO2 26.4 L POC ABG pO2 47 L Sodium 133 L Potassium Chloride 97.9 L BUN 7 L Creatinine 0.7 L Glucose POC Glucose Calcium Total Bilirubin Direct Bilirubin AST NT-Pro-B Natriuret Pep Total Protein Albumin Hepatitis C Antibody Crossmatch Allied health notes reviewed: nursing
[2018-01-09] MEDS: PROAMATINE PO SCH ×5 (03:01→16:58)
[2018-01-09 05:22] LABS: Hematocrit 24.3 % (35.5-45.6); Hemoglobin 7.6 gm/dl (11.8-15.2)
[2018-01-09] MEDS: DUONEB *Not for PRN Use IH SCH ×3 (09:09→21:03)
[2018-01-09] MEDS: MUCINEX ER PO SCH ×2 (12:16→22:08)
[2018-01-09] MEDS: PROTONIX PO SCH ×2 (12:16→22:08)
[2018-01-09] MEDS: SODIUM CHLORIDE FLUSH SYRINGE 10 ML IV SCH ×2 (12:17→22:09)
[2018-01-09] MEDS: LASIX IV SCH (12:17)
[2018-01-09] MEDS: SUDAFED PO PRN ×2 (12:19→17:30)
--- NOTE | 2018-01-09 13:06 | Progress Note ---
Assessment and Plan Acute on chronic diastolic HF - EF 45-50% Cor pulmonale Severe pulmonary HTN - RVSP 73mmHg per echo in 10/2017 Mod to severe mitral stenosis - Following evaluation at [facility] in 10/2017, he was felt not to be a candidate for transcatheter mitral valve replacement "given that patient appears to be at risk for LVOT obstruction with V in V and significant RV dysfunction" per [place] structural heart team. He was discharged home on Xarelto in setting of MS. Bilateral pleural effusions s/p thoracentesis Pneumonia GI bleed / Severe anemia - s/p EGD and per GI, pt is a poor candidate overall for colonoscopy and OP pill camera will be planned. May consider outpatient colonoscopy in the future. May cautiously restart anticoagulation, if felt highly important. He will have some future risks of bleeding. 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 LV thrombus - BETY performed at the [facility] in 10/2017 reportedly showed "heavy smoke" with concern for possible thrombus and thus pt was initiated on Xarelto Sinus tachycardia - improving Hypotension Nonobstructive CAD H/o PE - was anticoagulated with Xarelto and then developed GIB in 10/2017. . Subjective Date of service: 01/09/18 Principal diagnosis: Acute GI bleeding; Acute Hypoxemic Resp Failure; Left pleural effusion Interval history: Patient is sitting up in the bed. No dyspnea at rest. Objective Vital Signs Temp Pulse Pulse Resp Resp BP Pulse Ox 01/09/18 09:21 89 20 01/09/18 09:12 88 20 96 01/09/18 07:43 98.4 F 101 H 16 85/58 96 01/09/18 00:12 98.3 F 19 88/60 01/09/18 00:00 82 18 100 01/08/18 20:52 84 18 01/08/18 20:38 98 01/08/18 20:37 82 18 01/08/18 20:34 97.2 F L 62 17 92/63 80 L 01/08/18 20:00 90 01/08/18 16:21 99.1 F 111 H 18 86/60 96 01/08/18 15:43 18 L 105 H 01/08/18 15:38 104 H 19 01/08/18 15:33 100 - Physical Examination General: No Apparent Distress HEENT: Positive: EOMI, Normocephaly, Mucus Membranes Moist Neck: Positive: neck supple, trachea midline, JVD/HJR (elevated) Cardiac: Positive: Reg Rate and Rhythm Lungs: Positive: Decreased Breath Sounds Neuro: Positive: Grossly Intact Abdomen: Positive: Soft, Active Bowel Sounds. Negative: Tender Skin: Positive: Clear. Negative: Rash Musculoskeletal: Normal Range of Motion Extremities: Absent: edema - Labs and Meds CBC 01/09/18 Range/Units 05:04 Hgb 7.6 L (11.8-15.2) gm/dl Hct 24.3 L (35.5-45.6) % - Imaging and Cardiology EKG: image reviewed Echo: report reviewed (12/27/2017: limited study, EF 45-50%, LA severely dilated , bioprosthetic MV, interventricular septal flattening c/w RV volume or pressure overload, RV mod dilated, RV systolic function mod to severely reduced , minimal pericardial effusion, large pleural effusion) Cardiac cath: report reviewed (10/28/2017: LHC at [place] showed 35% proximal LAD stenosis, 30% mid LAD stenosis, 20% prox LCX stenosis, 50% prox RCA stenosis, 40 % mid RCA stenosis) - Telemetry EKG Rhythm: Sinus Rhythm - EKG Sinus rhythms and dysrhythmias: sinus tachycardia AV and intraventricular conduction: right bundle branch block - Allied health notes Allied health notes reviewed: nursing
--- NOTE | 2018-01-09 14:13 | Progress Note ---
Assessment and Plan GI bleed Hypotension secondary to GI bleed and dehydration Acute blood loss anemia Pneumonia, likely aspiration HFpEF--compensated Hypokalemia, Hepatitis C mitral valve stenosis (s/p replacement) GERD - pleural fluid transudative - continue to hold anticoagulation re: symptomatic anemia and GI bleed issues - EGD showed two minute possible AVMs in 2nd portion, no active bleeding - for outpatient colonoscopy - follow off AB's - continue midodrine - continue chronic home medications - continue PPI therapy - observe closely on telemetry - continue to monitor H&H ... re-evaluate in am & prn ... 25' Subjective Date of service: 01/09/18 Principal diagnosis: Acute GI bleeding; Acute Hypoxemic Resp Failure; Left pleural effusion Interval history: Patient is seen today for: Acute GI bleeding; Acute Hypoxemic Resp Failure; s/p MVR; CHF; Pulm Edema Seen and examined at bedside; 24-hour events reviewed; nursing and respiratory care staff consulted; no adverse overnight events reported to me; pleural fluid was transudative; anticoagulation remains on hold re; coagulopathy; no emesis or overt aspiration Objective Vital Signs - 12hr 01/09/18 01/09/18 01/09/18 07:43 09:12 09:21 Temperature 98.4 F Pulse Rate 101 H Pulse Rate [ 88 89 Anterior Bilateral Throughout] Respiratory 16 Rate Respiratory 20 20 Rate [Anterior Bilateral Throughout] Blood Pressure 85/58 O2 Sat by Pulse 96 96 Oximetry 01/09/18 01/09/18 13:41 13:46 Temperature Pulse Rate Pulse Rate [ 84 88 Anterior Bilateral Throughout] Respiratory Rate Respiratory 18 20 Rate [Anterior Bilateral Throughout] Blood Pressure O2 Sat by Pulse Oximetry Constitutional: no acute distress, asleep Eyes: non-icteric ENT: oropharynx moist, other (mallampati 2) Neck: supple, no lymphadenopathy, no JVD, other (no thyromegaly) Effort: mildly labored Ascultation: Bilateral: diminished breath sounds (bases), rales Percussion: Bilateral: not dull Cardiovascular: regular rate and rhythm, murmur noted, other (no rubs) Gastrointestinal: normoactive bowel sounds, soft, non-tender, non-distended, other (No HSM) Integumentary: other (poor turgor) Extremities: no cyanosis, pulses normal, no ischemia or petechiae, edema (1+ bilaterally) Neurologic: normal mental status, non-focal exam, pupils equal and round, motor strength normal and Psychiatric: mood appropriate, affect normal CBC and BMP: 01/10/18 09:17 01/07/18 06:08 ABG, PT/INR, D-dimer: ABG POC ABG pH 7.480 (7.35-7.45) H 01/07/18 15:41 POC ABG pCO2 26.4 (35-45) L 01/07/18 15:41 POC ABG pO2 47 (80-105) L 01/07/18 15:41 POC ABG HCO3 19.7 01/07/18 15:41 POC ABG Total CO2 20 01/07/18 15:41 POC ABG O2 Sat 86 01/07/18 15:41 PT/INR, D-dimer PT 17.6 Sec. (12.2-14.9) H 12/26/17 04:20 INR 1.36 (0.87-1.13) H 12/26/17 04:20 Abnormal lab findings: Abnormal Labs 12/23/17 12/23/17 12/23/17 20:00 20:00 20:00 RBC 2.43 L Hgb 6.6 L Hct 21.1 L MCH 27 L MCHC 31 L RDW 18.6 H Plt Count Lymph % (Auto) 11.0 L [place] % (Auto) 10.5 H Lymph # 0.9 L [place] # 0.9 H Seg Neutrophils % 76.6 H PT INR POC ABG pH POC ABG pCO2 POC ABG pO2 Sodium 129 L Potassium 3.3 L Chloride 90.9 L BUN 32 H Creatinine Glucose 116 H POC Glucose Calcium Total Bilirubin 3.80 H Direct Bilirubin 2.8 H AST 56 H NT-Pro-B Natriuret Pep Total Protein 6.2 L Albumin 2.6 L Hepatitis C Antibody Crossmatch 12/23/17 12/23/17 12/24/17 20:40 20:56 00:30 RBC Hgb Hct MCH MCHC RDW Plt Count Lymph % (Auto) [place] % (Auto) Lymph # [place] # Seg Neutrophils % PT 28.3 H INR 2.46 H POC ABG pH POC ABG pCO2 POC ABG pO2 Sodium Potassium Chloride BUN Creatinine Glucose POC Glucose Calcium Total Bilirubin Direct Bilirubin AST NT-Pro-B Natriuret Pep 4304 H Total Protein Albumin Hepatitis C Antibody Crossmatch See Detail 12/24/17 12/24/17 12/24/17 03:41 05:50 07:45 RBC Hgb 8.4 L 8.1 L Hct 26.3 L 24.5 L MCH MCHC RDW Plt Count Lymph % (Auto) [place] % (Auto) Lymph # [place] # Seg Neutrophils % PT INR POC ABG pH POC ABG pCO2 POC ABG pO2 Sodium Potassium Chloride BUN Creatinine Glucose POC Glucose 144 H Calcium Total Bilirubin Direct Bilirubin AST NT-Pro-B Natriuret Pep Total Protein Albumin Hepatitis C Antibody Crossmatch 12/24/17 12/25/17 12/25/17 12:18 04:45 04:45 RBC 2.70 L Hgb 7.5 L Hct 23.1 L MCH MCHC RDW 17.9 H Plt Count Lymph % (Auto) 4.8 L [place] % (Auto) 13.5 H Lymph # 0.4 L [place] # 1.3 H Seg Neutrophils % 81.5 H PT INR POC ABG pH POC ABG pCO2 POC ABG pO2 Sodium 136 L D Potassium Chloride BUN Creatinine Glucose 107 H POC Glucose 111 H Calcium Total Bilirubin Direct Bilirubin AST NT-Pro-B Natriuret Pep Total Protein Albumin Hepatitis C Antibody Crossmatch 12/25/17 12/25/17 12/26/17 04:45 04:45 04:20 RBC 3.09 L Hgb 8.6 L Hct 26.8 L MCH MCHC RDW 18.0 H Plt Count Lymph % (Auto) 6.9 L [place] % (Auto) 10.0 H Lymph # 0.6 L [place] # 0.9 H Seg Neutrophils % 82.1 H PT 18.2 H INR 1.42 H POC ABG pH POC ABG pCO2 POC ABG pO2 Sodium Potassium Chloride BUN Creatinine Glucose POC Glucose Calcium Total Bilirubin Direct Bilirubin AST NT-Pro-B Natriuret Pep Total Protein Albumin Hepatitis C Antibody Reactive A Crossmatch 12/26/17 12/27/17 12/27/17 04:20 14:25 14:25 RBC 3.11 L Hgb 8.7 L Hct 26.5 L MCH MCHC RDW 18.3 H Plt Count Lymph % (Auto) [place] % (Auto) Lymph # [place] # Seg Neutrophils % PT 17.6 H INR 1.36 H POC ABG pH POC ABG pCO2 POC ABG pO2 Sodium 135 L Potassium 3.4 L Chloride BUN Creatinine Glucose 132 H POC Glucose Calcium Total Bilirubin Direct Bilirubin AST NT-Pro-B Natriuret Pep Total Protein Albumin Hepatitis C Antibody Crossmatch 12/28/17 12/30/17 12/30/17 14:03 05:50 05:50 RBC 2.85 L Hgb 7.8 L Hct 24.1 L MCH 27 L MCHC RDW 17.3 H Plt Count Lymph % (Auto) 5.3 L [place] % (Auto) 11.2 H Lymph # 0.5 L [place] # 1.0 H Seg Neutrophils % 82.1 H PT INR POC ABG pH POC ABG pCO2 POC ABG pO2 Sodium 135 L 132 L Potassium Chloride 96.7 L BUN Creatinine 0.7 L 0.7 L Glucose POC Glucose Calcium 8.1 L Total Bilirubin 2.60 H Direct Bilirubin AST NT-Pro-B Natriuret Pep 5482 H Total Protein 5.4 L Albumin 2.4 L Hepatitis C Antibody Crossmatch 12/31/17 01/04/18 01/04/18 05:17 05:12 05:12 RBC 2.97 L Hgb 8.0 L 7.8 L Hct 24.2 L 24.9 L MCH 26 L MCHC 31 L RDW 18.3 H Plt Count 137 L Lymph % (Auto) 8.3 L [place] % (Auto) 14.0 H Lymph # 0.7 L [place] # 1.1 H Seg Neutrophils % 75.8 H PT INR POC ABG pH POC ABG pCO2 POC ABG pO2 Sodium 135 L Potassium Chloride BUN Creatinine 0.6 L Glucose POC Glucose Calcium Total Bilirubin Direct Bilirubin AST NT-Pro-B Natriuret Pep Total Protein Albumin Hepatitis C Antibody Crossmatch 01/05/18 01/06/18 01/07/18 15:31 05:43 06:08 RBC Hgb 8.4 L 8.2 L 7.6 L Hct 26.4 L 25.7 L 23.9 L MCH MCHC RDW Plt Count Lymph % (Auto) [place] % (Auto) Lymph # [place] # Seg Neutrophils % PT INR POC ABG pH POC ABG pCO2 POC ABG pO2 Sodium Potassium Chloride BUN Creatinine Glucose POC Glucose Calcium Total Bilirubin Direct Bilirubin AST NT-Pro-B Natriuret Pep Total Protein Albumin Hepatitis C Antibody Crossmatch 01/07/18 01/07/1801/08/18 06:08 15:41 06:05 RBC Hgb 7.8 L Hct 24.6 L MCH MCHC RDW Plt Count Lymph % (Auto) [place] % (Auto) Lymph # [place] # Seg Neutrophils % PT INR POC ABG pH 7.480 H POC ABG pCO2 26.4 L POC ABG pO2 47 L Sodium 133 L Potassium Chloride 97.9 L BUN 7 L Creatinine 0.7 L Glucose POC Glucose Calcium Total Bilirubin Direct Bilirubin AST NT-Pro-B Natriuret Pep Total Protein Albumin Hepatitis C Antibody Crossmatch 01/09/18 05:04 RBC Hgb 7.6 L Hct 24.3 L MCH MCHC RDW Plt Count Lymph % (Auto) [place] % (Auto) Lymph # [place] # Seg Neutrophils % PT INR POC ABG pH POC ABG pCO2 POC ABG pO2 Sodium Potassium Chloride BUN Creatinine Glucose POC Glucose Calcium Total Bilirubin Direct Bilirubin AST NT-Pro-B Natriuret Pep Total Protein Albumin Hepatitis C Antibody Crossmatch Allied health notes reviewed: nursing
--- NOTE | 2018-01-09 16:54 | Progress Note ---
Assessment and Plan Assessment and plan: Acute hypoxic respiratory failure - Likely from underlying COPD with pleural effusion - repeat CXR following thoracentesis showed no pneumothorax - cont nebs, and wean off O2 as tolerated b/l pleural efusion L>R - s/p thoracentesis drained 1.5 L 12/29/17 and 1.1L 01/07/18 - cont on lasix Mitral valve stenosis with possible LV thrombus - Following evaluation at [facility] in 10/2017, he was felt not to be a candidate for transcatheter mitral valve replacement per [facility] structural heart team. He was discharged home on Xarelto in setting of MS. - Per cardiology he is a poor candidate to start on AC for anemia and recent GI bleed, Now xarelto on hold GI bleed - s/p 3 units PRBC - EGD 12/25 showed two minute possible AVMs in 2nd portion, no active bleeding - colonoscopy postponded as patient back on levophed intermittently - plan for coloscopy outpt, advanced diet as tolerated - cont to follow h/h Hypotension secondary to GI bleed and dehydration - Started Levophed drip from ER, required intermittently - will cont on low dose midodrine Acute blood loss anemia, transfused, monitor H&H Pneumonia, likely aspiration - treated with IV Levaquin, Zosyn, negative blood cultures - stopped abx 12/30/17 Chronic CHF, diastolic dysfunction, stable - monitor volume status, Ef 45-50% - started on diuretic by cardiology, cont to monitor Hypokalemia, replete and monitor as needed Hepatitis C, need outpt follow up GERD, PPI DVT Px - SCD Disposition: PT consulted, recommended HH with supportive care vs [facility]: patient is unfunded. Cardiology recommended hospice for inoperable MS, discussed with patient and he agrees. CM notified History Interval history: Patient was seen and evaluated this morning, patient said "I am breathing okay. " Hospitalist Physical - Physical exam Narrative exam: Not in cardiopulmonary distress. The patient appeared well nourished and normally developed. Vital signs as documented. Head exam is unremarkable. No scleral icterus . Neck is without jugular venous distension, thyromegaly, or carotid bruits. Lungs are decreased air entry on the bibasilar area. Cardiac exam reveals regular rate and Rhythm. Abdominal exam reveals normal bowel sounds, no masses, no organomegaly and no aortic enlargement. Extremities are nonedematous and both femoral and pedal pulses are normal. 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 No focal weakness. - Constitutional Vitals: Temp Pulse Resp BP Pulse Ox 98.4 F 88 20 85/58 96 01/09/18 07:43 01/09/18 13:46 01/09/18 13:46 01/09/18 07:43 01/09/18 09:12 General appearance: Present: mild distress Results - Labs CBC & Chem 7: 01/09/18 05:04 01/07/18 06:08 Labs: Laboratory Last Values WBC 8.2 K/mm3 (4.5-11.0) 01/04/18 05:12 RBC 2.97 M/mm3 (3.65-5.03) L 01/04/18 05:12 Hgb 7.6 gm/dl (11.8-15.2) L 01/09/18 05:04 Hct 24.3 % (35.5-45.6) L 01/09/18 05:04 MCV 84 fl (84-94) 01/04/18 05:12 MCH 26 pg (28-32) L 01/04/18 05:12 MCHC 31 % (32-34) L 01/04/18 05:12 RDW 18.3 % (13.2-15.2) H 01/04/18 05:12 Plt Count 137 K/mm3 (140-440) L 01/04/18 05:12 Lymph % (Auto) 8.3 % (13.4-35.0) L 01/04/18 05:12 [place] % (Auto) 14.0 % (0.0-7.3) H 01/04/18 05:12 Eos % (Auto) 0.7 % (0.0-4.3) 01/04/18 05:12 Baso % (Auto) 1.2 % (0.0-1.8) 01/04/18 05:12 Lymph # 0.7 K/mm3 (1.2-5.4) L 01/04/18 05:12 [place] # 1.1 K/mm3 (0.0-0.8) H 01/04/18 05:12 Eos # 0.1 K/mm3 (0.0-0.4) 01/04/18 05:12 Baso # 0.1 K/mm3 (0.0-0.1) 01/04/18 05:12 Seg Neutrophils % 75.8 % (40.0-70.0) H 01/04/18 05:12 Seg Neutrophils # 6.2 K/mm3 (1.8-7.7) 01/04/18 05:12 PT 17.6 Sec. (12.2-14.9) H 12/26/17 04:20 INR 1.36 (0.87-1.13) H 12/26/17 04:20 POC ABG pH 7.480 (7.35-7.45) H 01/07/18 15:41 POC ABG pCO2 26.4 (35-45) L 01/07/18 15:41 POC ABG pO2 47 (80-105) L 01/07/18 15:41 POC ABG HCO3 19.7 01/07/18 15:41 POC ABG Total CO2 20 01/07/18 15:41 POC ABG O2 Sat 86 01/07/18 15:41 POC ABG Base Excess -4 01/07/18 15:41 FiO2 32 % 01/07/18 15:41 Sodium 133 mmol/L (137-145) L 01/07/18 06:08 Potassium 3.7 mmol/L (3.6-5.0) 01/07/18 06:08 Chloride 97.9 mmol/L (98-107) L 01/07/18 06:08 Carbon Dioxide 22 mmol/L (22-30) 01/07/18 06:08 Anion Gap 17 mmol/L 01/07/18 06:08 BUN 7 mg/dL (9-20) L 01/07/18 06:08 Creatinine 0.7 mg/dL (0.8-1.5) L 01/07/18 06:08 Estimated GFR > 60 ml/min 01/07/18 06:08 BUN/Creatinine Ratio 10 % 01/07/18 06:08 Glucose 83 mg/dL (75-100) 01/07/18 06:08 POC Glucose 111 (70-105) H 12/24/17 12:18 Calcium 8.4 mg/dL (8.4-10.2) 01/07/18 06:08 Total Bilirubin 2.60 mg/dL (0.1-1.2) H 12/30/17 05:50 Direct Bilirubin 2.8 mg/dL (0-0.2) H 12/23/17 20:00 Indirect Bilirubin 1.0 mg/dL 12/23/17 20:00 AST 29 units/L (5-40) 12/30/17 05:50 ALT 16 units/L (7-56) 12/30/17 05:50 Alkaline Phosphatase 100 units/L (35-129) 12/30/17 05:50 NT-Pro-B Natriuret Pep 5482 pg/mL (0-900) H 12/28/17 14:03 Total Protein 5.4 g/dL (6.3-8.2) L 12/30/17 05:50 Albumin 2.4 g/dL (3.9-5) L 12/30/17 05:50 Albumin/Globulin Ratio 0.8 % 12/30/17 05:50 Fluid Type Thoracentesis 12/29/17 Unknown Fluid Color Straw 12/29/17 Unknown Fluid Appearance Hazy 12/29/17 Unknown Fluid WBC 30 /mm3 12/29/17 Unknown Fluid RBC 355 /mm3 12/29/17 Unknown Fluid Seg Neutrophils 23.0 % 12/29/17 Unknown Fluid Lymphocytes 42.0 % 12/29/17 Unknown Fluid Reactive Lymphs Not Reportable 12/29/17 Unknown Fluid Monocytes 35.0 % 12/29/17 Unknown Fluid Eosinophils Not Reportable 12/29/17 Unknown Fluid Basophils Not Reportable 12/29/17 Unknown Fluid Albumin 0.3 g/dL 12/29/17 Unknown Fluid LDH 32 12/29/17 Unknown Digoxin 1.3 ng/mL (0.9-2.0) 01/06/18 05:43 Hepatitis A IgM Ab Non-reactive (NonReactive) 12/25/17 04:45 Hep Bs Antigen Non-reactive (Negative) 12/25/17 04:45 Hep B Core IgM Ab Non-reactive (NonReactive) 12/25/17 04:45 Hepatitis C Antibody Reactive (NonReactive) A 12/25/17 04:45 Hepatitis C Genotype Not detected 12/25/17 05:10 Blood Type B POSITIVE 12/23/17 20:40 Antibody Screen Negative 12/23/17 20:40 Crossmatch See Detail 12/23/17 20:40
[2018-01-10] MEDS: DUONEB *Not for PRN Use IH SCH ×3 (07:16→20:03)
[2018-01-10] MEDS: PROAMATINE PO SCH ×3 (08:59→16:36)
[2018-01-10 09:38] LABS: Hematocrit 24.8 % (35.5-45.6); Hemoglobin 7.9 gm/dl (11.8-15.2)
--- NOTE | 2018-01-10 09:40 | Progress Note ---
Assessment and Plan Assessment and plan: Acute hypoxic respiratory failure - Likely from underlying COPD with pleural effusion - repeat CXR following thoracentesis showed no pneumothorax - cont nebs, and wean off O2 as tolerated b/l pleural efusion L>R - s/p thoracentesis drained 1.5 L 12/29/17 and 1.1L 01/07/18 - cont on lasix Mitral valve stenosis with possible LV thrombus - Following evaluation at [facility] in 10/2017, he was felt not to be a candidate for transcatheter mitral valve replacement per [facility] structural heart team. He was discharged home on Xarelto in setting of MS. - Per cardiology he is a poor candidate to start on AC for anemia and recent GI bleed, Now xarelto on hold GI bleed - s/p 3 units PRBC - EGD 12/25 showed two minute possible AVMs in 2nd portion, no active bleeding - colonoscopy postponded as patient back on levophed intermittently - plan for coloscopy outpt, advanced diet as tolerated - cont to follow h/h Hypotension secondary to GI bleed and dehydration - Started Levophed drip from ER, required intermittently - will cont on low dose midodrine Acute blood loss anemia, transfused, monitor H&H Pneumonia, likely aspiration - treated with IV Levaquin, Zosyn, negative blood cultures - stopped abx 12/30/17 Chronic CHF, diastolic dysfunction, stable - monitor volume status, Ef 45-50% - started on diuretic by cardiology, cont to monitor Hypokalemia, replete and monitor as needed Hepatitis C, need outpt follow up GERD, PPI DVT Px - SCD Disposition: PT consulted, recommended HH with supportive care vs [facility]: patient is unfunded. Cardiology recommended hospice for inoperable MS, discussed with patient and he agrees. CM notified History Interval history: Patient was seen and evaluated this morning, patient said "I am breathing okay. " Hospitalist Physical - Physical exam Narrative exam: Not in cardiopulmonary distress. The patient appeared well nourished and normally developed. Vital signs as documented. Head exam is unremarkable. No scleral icterus . Neck is without jugular venous distension, thyromegaly, or carotid bruits. Lungs are decreased air entry on the bibasilar area. Cardiac exam reveals regular rate and Rhythm. Abdominal exam reveals normal bowel sounds, no masses, no organomegaly and no aortic enlargement. Extremities are nonedematous and both femoral and pedal pulses are normal. 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 No focal weakness. - Constitutional Vitals: Temp Pulse Resp BP Pulse Ox 97.6 F 96 H 18 83/58 100 01/10/18 05:10 01/09/18 21:34 01/10/18 05:10 01/10/18 05:10 01/09/18 21:03 General appearance: Present: mild distress Results - Labs CBC & Chem 7: 01/10/18 09:17 01/07/18 06:08 Labs: Laboratory Last Values WBC 8.2 K/mm3 (4.5-11.0) 01/04/18 05:12 RBC 2.97 M/mm3 (3.65-5.03) L 01/04/18 05:12 Hgb 7.9 gm/dl (11.8-15.2) L 01/10/18 09:17 Hct 24.8 % (35.5-45.6) L 01/10/18 09:17 MCV 84 fl (84-94) 01/04/18 05:12 MCH 26 pg (28-32) L 01/04/18 05:12 MCHC 31 % (32-34) L 01/04/18 05:12 RDW 18.3 % (13.2-15.2) H 01/04/18 05:12 Plt Count 137 K/mm3 (140-440) L 01/04/18 05:12 Lymph % (Auto) 8.3 % (13.4-35.0) L 01/04/18 05:12 [place] % (Auto) 14.0 % (0.0-7.3) H 01/04/18 05:12 Eos % (Auto) 0.7 % (0.0-4.3) 01/04/18 05:12 Baso % (Auto) 1.2 % (0.0-1.8) 01/04/18 05:12 Lymph # 0.7 K/mm3 (1.2-5.4) L 01/04/18 05:12 Andrews # 1.1 K/mm3 (0.0-0.8) H 01/04/18 05:12 Eos # 0.1 K/mm3 (0.0-0.4) 01/04/18 05:12 Baso # 0.1 K/mm3 (0.0-0.1) 01/04/18 05:12 Seg Neutrophils % 75.8 % (40.0-70.0) H 01/04/18 05:12 Seg Neutrophils # 6.2 K/mm3 (1.8-7.7) 01/04/18 05:12 PT 17.6 Sec. (12.2-14.9) H 12/26/17 04:20 INR 1.36 (0.87-1.13) H 12/26/17 04:20 POC ABG pH 7.480 (7.35-7.45) H 01/07/18 15:41 POC ABG pCO2 26.4 (35-45) L 01/07/18 15:41 POC ABG pO2 47 (80-105) L 01/07/18 15:41 POC ABG HCO3 19.7 01/07/18 15:41 POC ABG Total CO2 20 01/07/18 15:41 POC ABG O2 Sat 86 01/07/18 15:41 POC ABG Base Excess -4 01/07/18 15:41 FiO2 32 % 01/07/18 15:41 Sodium 133 mmol/L (137-145) L 01/07/18 06:08 Potassium 3.7 mmol/L (3.6-5.0) 01/07/18 06:08 Chloride 97.9 mmol/L (98-107) L 01/07/18 06:08 Carbon Dioxide 22 mmol/L (22-30) 01/07/18 06:08 Anion Gap 17 mmol/L 01/07/18 06:08 BUN 7 mg/dL (9-20) L 01/07/18 06:08 Creatinine 0.7 mg/dL (0.8-1.5) L 01/07/18 06:08 Estimated GFR > 60 ml/min 01/07/18 06:08 BUN/Creatinine Ratio 10 % 01/07/18 06:08 Glucose 83 mg/dL (75-100) 01/07/18 06:08 POC Glucose 111 (70-105) H 12/24/17 12:18 Calcium 8.4 mg/dL (8.4-10.2) 01/07/18 06:08 Total Bilirubin 2.60 mg/dL (0.1-1.2) H 12/30/17 05:50 Direct Bilirubin 2.8 mg/dL (0-0.2) H 12/23/17 20:00 Indirect Bilirubin 1.0 mg/dL 12/23/17 20:00 AST 29 units/L (5-40) 12/30/17 05:50 ALT 16 units/L (7-56) 12/30/17 05:50 Alkaline Phosphatase 100 units/L (35-129) 12/30/17 05:50 NT-Pro-B Natriuret Pep 5482 pg/mL (0-900) H 12/28/17 14:03 Total Protein 5.4 g/dL (6.3-8.2) L 12/30/17 05:50 Albumin 2.4 g/dL (3.9-5) L 12/30/17 05:50 Albumin/Globulin Ratio 0.8 % 12/30/17 05:50 Fluid Type Thoracentesis 12/29/17 Unknown Fluid Color Straw 12/29/17 Unknown Fluid Appearance Hazy 12/29/17 Unknown Fluid WBC 30 /mm3 12/29/17 Unknown Fluid RBC 355 /mm3 12/29/17 Unknown Fluid Seg Neutrophils 23.0 % 12/29/17 Unknown Fluid Lymphocytes 42.0 % 12/29/17 Unknown Fluid Reactive Lymphs Not Reportable 12/29/17 Unknown Fluid Monocytes 35.0 % 12/29/17 Unknown Fluid Eosinophils Not Reportable 12/29/17 Unknown Fluid Basophils Not Reportable 12/29/17 Unknown Fluid Albumin 0.3 g/dL 12/29/17 Unknown Fluid LDH 32 12/29/17 Unknown Digoxin 1.3 ng/mL (0.9-2.0) 01/06/18 05:43 Hepatitis A IgM Ab Non-reactive (NonReactive) 12/25/17 04:45 Hep Bs Antigen Non-reactive (Negative) 12/25/17 04:45 Hep B Core IgM Ab Non-reactive (NonReactive) 12/25/17 04:45 Hepatitis C Antibody Reactive (NonReactive) A 12/25/17 04:45 Hepatitis C Genotype Not detected 12/25/17 05:10 Blood Type B POSITIVE 12/23/17 20:40 Antibody Screen Negative 12/23/17 20:40 Crossmatch See Detail 12/23/17 20:40
[2018-01-10] MEDS: SODIUM CHLORIDE FLUSH SYRINGE 10 ML IV SCH ×2 (10:00→21:58)
[2018-01-10] MEDS: PROTONIX PO SCH ×2 (10:00→21:57)
[2018-01-10] MEDS: MUCINEX ER PO SCH ×2 (10:00→21:57)
[2018-01-10] MEDS: LASIX IV SCH (10:59)
--- NOTE | 2018-01-10 13:55 | Progress Note ---
Assessment and Plan GI bleed Hypotension secondary to GI bleed and dehydration Acute blood loss anemia Pneumonia, likely aspiration HFpEF--compensated Hypokalemia, Hepatitis C mitral valve stenosis (s/p replacement) GERD - pleural fluid transudative - continue supplemental oxygen as needed to keep sats > 90% - continue to hold anticoagulation re: symptomatic anemia and GI bleed issues - EGD showed two minute possible AVMs in 2nd portion, no active bleeding - for outpatient colonoscopy - optimize heart failure therapy per cardiology - following off AB's - continue midodrine - continue chronic home medications - continue PPI therapy - observe closely on telemetry - continue to monitor H&H - discharge planning LTAC vs Hospice (will defer to attending) ... re-evaluate in am & prn ... 25' Subjective Date of service: 01/10/18 Principal diagnosis: Acute GI bleeding; Acute Hypoxemic Resp Failure; Left pleural effusion Interval history: Patient is seen today for: Acute GI bleeding; Acute Hypoxemic Resp Failure; s/p MVR; CHF; Pulm Edema Seen and examined at bedside; 24-hour events reviewed; nursing and respiratory care staff consulted; no adverse overnight events reported to me; resting peacefully in bed; denies gross GI or other building; denies any palpitations; NO N/V/F/C Objective Vital Signs - 12hr 01/10/18 01/10/18 05:10 07:52 Temperature 97.6 F 98.8 F Respiratory 18 18 Rate Blood Pressure 83/58 92/62 Constitutional: no acute distress, asleep Eyes: non-icteric ENT: oropharynx moist, other (mallampati 2) Neck: supple, no lymphadenopathy, no JVD, other (no thyromegaly) Effort: mildly labored Ascultation: Bilateral: diminished breath sounds (bases), rales Percussion: Bilateral: not dull Cardiovascular: regular rate and rhythm, murmur noted, other (no rubs) Gastrointestinal: normoactive bowel sounds, soft, non-tender, non-distended, other (No HSM) Integumentary: other (poor turgor) Extremities: no cyanosis, pulses normal, no ischemia or petechiae, edema (1+ bilaterally) Neurologic: normal mental status, non-focal exam, pupils equal and round, motor strength normal and Psychiatric: depressed CBC and BMP: 01/10/18 09:17 08/23/18 06:08 ABG, PT/INR, D-dimer: ABG POC ABG pH 7.480 (7.35-7.45) H 01/07/18 15:41 POC ABG pCO2 26.4 (35-45) L 01/07/18 15:41 POC ABG pO2 47 (80-105) L 01/07/18 15:41 POC ABG HCO3 19.7 01/07/18 15:41 POC ABG Total CO2 20 01/07/18 15:41 POC ABG O2 Sat 86 01/07/18 15:41 PT/INR, D-dimer PT 17.6 Sec. (12.2-14.9) H 12/26/17 04:20 INR 1.36 (0.87-1.13) H 12/26/17 04:20 Abnormal lab findings: Abnormal Labs 12/23/17 12/23/17 12/23/17 20:00 20:00 20:00 RBC 2.43 L Hgb 6.6 L Hct 21.1 L MCH 27 L MCHC 31 L RDW 18.6 H Plt Count Lymph % (Auto) 11.0 L [place] % (Auto) 10.5 H Lymph # 0.9 L [place] # 0.9 H Seg Neutrophils % 76.6 H PT INR POC ABG pH POC ABG pCO2 POC ABG pO2 Sodium 129 L Potassium 3.3 L Chloride 90.9 L BUN 32 H Creatinine Glucose 116 H POC Glucose Calcium Total Bilirubin 3.80 H Direct Bilirubin 2.8 H AST 56 H NT-Pro-B Natriuret Pep Total Protein 6.2 L Albumin 2.6 L Hepatitis C Antibody Crossmatch 12/23/17 12/23/17 12/24/17 20:40 20:56 00:30 RBC Hgb Hct MCH MCHC RDW Plt Count Lymph % (Auto) Pine % (Auto) Lymph # Pine # Seg Neutrophils % PT 28.3 H INR 2.46 H POC ABG pH POC ABG pCO2 POC ABG pO2 Sodium Potassium Chloride BUN Creatinine Glucose POC Glucose Calcium Total Bilirubin Direct Bilirubin AST NT-Pro-B Natriuret Pep 4304 H Total Protein Albumin Hepatitis C Antibody Crossmatch See Detail 12/24/17 12/24/17 12/24/17 03:41 05:50 07:45 RBC Hgb 8.4 L 8.1 L Hct 26.3 L 24.5 L MCH MCHC RDW Plt Count Lymph % (Auto) Pine % (Auto) Lymph # Pine # Seg Neutrophils % PT INR POC ABG pH POC ABG pCO2 POC ABG pO2 Sodium Potassium Chloride BUN Creatinine Glucose POC Glucose 144 H Calcium Total Bilirubin Direct Bilirubin AST NT-Pro-B Natriuret Pep Total Protein Albumin Hepatitis C Antibody Crossmatch 12/24/17 12/25/17 12/25/17 12:18 04:45 04:45 RBC 2.70 L Hgb 7.5 L Hct 23.1 L MCH MCHC RDW 17.9 H Plt Count Lymph % (Auto) 4.8 L Pine % (Auto) 13.5 H Lymph # 0.4 L [place] # 1.3 H Seg Neutrophils % 81.5 H PT INR POC ABG pH POC ABG pCO2 POC ABG pO2 Sodium 136 L D Potassium Chloride BUN Creatinine Glucose 107 H POC Glucose 111 H Calcium Total Bilirubin Direct Bilirubin AST NT-Pro-B Natriuret Pep Total Protein Albumin Hepatitis C Antibody Crossmatch 12/25/17 12/25/17 12/26/17 04:45 04:45 04:20 RBC 3.09 L Hgb 8.6 L Hct 26.8 L MCH MCHC RDW 18.0 H Plt Count Lymph % (Auto) 6.9 L Pine % (Auto) 10.0 H Lymph # 0.6 L [place] # 0.9 H Seg Neutrophils % 82.1 H PT 18.2 H INR 1.42 H POC ABG pH POC ABG pCO2 POC ABG pO2 Sodium Potassium Chloride BUN Creatinine Glucose POC Glucose Calcium Total Bilirubin Direct Bilirubin AST NT-Pro-B Natriuret Pep Total Protein Albumin Hepatitis C Antibody Reactive A Crossmatch 12/26/17 12/27/17 12/27/17 04:20 14:25 14:25 RBC 3.11 L Hgb 8.7 L Hct 26.5 L MCH MCHC RDW 18.3 H Plt Count Lymph % (Auto) Pine % (Auto) Lymph # Pine # Seg Neutrophils % PT 17.6 H INR 1.36 H POC ABG pH POC ABG pCO2 POC ABG pO2 Sodium 135 L Potassium 3.4 L Chloride BUN Creatinine Glucose 132 H POC Glucose Calcium Total Bilirubin Direct Bilirubin AST NT-Pro-B Natriuret Pep Total Protein Albumin Hepatitis C Antibody Crossmatch 12/28/17 12/30/17 12/30/17 14:03 05:50 05:50 RBC 2.85 L Hgb 7.8 L Hct 24.1 L MCH 27 L MCHC RDW 17.3 H Plt Count Lymph % (Auto) 5.3 L Pine % (Auto) 11.2 H Lymph # 0.5 L [place] # 1.0 H Seg Neutrophils % 82.1 H PT INR POC ABG pH POC ABG pCO2 POC ABG pO2 Sodium 135 L 132 L Potassium Chloride 96.7 L BUN Creatinine 0.7 L 0.7 L Glucose POC Glucose Calcium 8.1 L Total Bilirubin 2.60 H Direct Bilirubin AST NT-Pro-B Natriuret Pep 5482 H Total Protein 5.4 L Albumin 2.4 L Hepatitis C Antibody Crossmatch 12/31/17 01/04/18 01/04/18 05:17 05:12 05:12 RBC 2.97 L Hgb 8.0 L 7.8 L Hct 24.2 L 24.9 L MCH 26 L MCHC 31 L RDW 18.3 H Plt Count 137 L Lymph % (Auto) 8.3 L Pine % (Auto) 14.0 H Lymph # 0.7 L [place] # 1.1 H Seg Neutrophils % 75.8 H PT INR POC ABG pH POC ABG pCO2 POC ABG pO2 Sodium 135 L Potassium Chloride BUN Creatinine 0.6 L Glucose POC Glucose Calcium Total Bilirubin Direct Bilirubin AST NT-Pro-B Natriuret Pep Total Protein Albumin Hepatitis C Antibody Crossmatch 01/05/18 01/06/18 01/07/18 15:31 05:43 06:08 RBC Hgb 8.4 L 8.2 L 7.6 L Hct 26.4 L 25.7 L 23.9 L MCH MCHC RDW Plt Count Lymph % (Auto) Pine % (Auto) Lymph # Pine # Seg Neutrophils % PT INR POC ABG pH POC ABG pCO2 POC ABG pO2 Sodium Potassium Chloride BUN Creatinine Glucose POC Glucose Calcium Total Bilirubin Direct Bilirubin AST NT-Pro-B Natriuret Pep Total Protein Albumin Hepatitis C Antibody Crossmatch 01/07/18 01/07/18 01/08/18 06:08 15:41 06:05 RBC Hgb 7.8 L Hct 24.6 L MCH MCHC RDW Plt Count Lymph % (Auto) Pine % (Auto) Lymph # [place] # Seg Neutrophils % PT INR POC ABG pH 7.480 H POC ABG pCO2 26.4 L POC ABG pO2 47 L Sodium 133 L Potassium Chloride 97.9 L BUN 7 L Creatinine 0.7 L Glucose POC Glucose Calcium Total Bilirubin Direct Bilirubin AST NT-Pro-B Natriuret Pep Total Protein Albumin Hepatitis C Antibody Crossmatch 01/09/18 01/10/18 05:04 09:17 RBC Hgb 7.6 L 7.9 L Hct 24.3 L 24.8 L MCH MCHC RDW Plt Count Lymph % (Auto) Pine % (Auto) Lymph # Pine # Seg Neutrophils % PT INR POC ABG pH POC ABG pCO2 POC ABG pO2 Sodium Potassium Chloride BUN Creatinine Glucose POC Glucose Calcium Total Bilirubin Direct Bilirubin AST NT-Pro-B Natriuret Pep Total Protein Albumin Hepatitis C Antibody Crossmatch Allied health notes reviewed: nursing
--- NOTE | 2018-01-10 14:10 | Progress Note ---
Assessment and Plan Acute on chronic diastolic HF - EF 45-50% Cor pulmonale Severe pulmonary HTN - RVSP 73mmHg per echo in 10/2017 Mod to severe mitral stenosis - Following evaluation at [facility] in 10/2017, he was felt not to be a candidate for transcatheter mitral valve replacement "given that patient appears to be at risk for LVOT obstruction with V in V and significant RV dysfunction" per [facility] structural heart team. He was discharged home on Xarelto in setting of MS. Bilateral pleural effusions s/p thoracentesis Pneumonia GI bleed / Severe anemia - s/p EGD and per GI, pt is a poor candidate overall for colonoscopy and OP pill camera will be planned. May consider outpatient colonoscopy in the future. May cautiously restart anticoagulation, if felt highly important. He will have some future risks of bleeding. 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 LV thrombus - BETY performed at the [facility] in 10/2017 reportedly showed "heavy smoke" with concern for possible thrombus and thus pt was initiated on Xarelto Sinus tachycardia - improving Hypotension Nonobstructive CAD H/o PE - was anticoagulated with Xarelto and then developed GIB in 10/2017. . Subjective Principal diagnosis: Acute GI bleeding; Acute Hypoxemic Resp Failure; Left pleural effusion Interval history: Patient is sitting up in the bed. No dyspnea at rest. Objective Vital Signs Temp Pulse Pulse Resp Resp BP Pulse Ox 01/10/18 07:52 98.8 F 18 92/62 01/10/18 05:10 97.6 F 18 83/58 01/10/18 00:12 98.2 F 18 85/60 01/09/18 21:34 96 H 16 01/09/18 21:03 101 H 16 100 01/09/18 20:17 98.3 F 19 94/65 01/09/18 19:00 100 H 01/09/18 17:34 98.2 F 16 94/66 - Physical Examination General: No Apparent Distress, Other (pallor) HEENT: Positive: EOMI, Normocephaly, Mucus Membranes Moist Neck: Positive: neck supple, trachea midline, JVD/HJR (elevated) Cardiac: Positive: Reg Rate and Rhythm Lungs: Positive: Decreased Breath Sounds Neuro: Positive: Grossly Intact Abdomen: Positive: Soft, Active Bowel Sounds. Negative: Tender Skin: Positive: Clear. Negative: Rash Musculoskeletal: Normal Range of Motion Extremities: Absent: edema - Labs and Meds CBC 01/10/18 Range/Units 09:17 Hgb 7.9 L (11.8-15.2) gm/dl Hct 24.8 L (35.5-45.6) % - Imaging and Cardiology EKG: image reviewed Echo: report reviewed (12/27/2017: limited study, EF 45-50%, LA severely dilated , bioprosthetic MV, interventricular septal flattening c/w RV volume or pressure overload, RV mod dilated, RV systolic function mod to severely reduced , minimal pericardial effusion, large pleural effusion) Cardiac cath: report reviewed (10/28/2017: LHC at [facility] showed 35% proximal LAD stenosis, 30% mid LAD stenosis, 20% prox LCX stenosis, 50% prox RCA stenosis, 40 % mid RCA stenosis) - Telemetry EKG Rhythm: Sinus Rhythm - EKG Sinus rhythms and dysrhythmias: sinus tachycardia AV and intraventricular conduction: right bundle branch block - Allied health notes Allied health notes reviewed: nursing
[2018-01-10] MEDS: SUDAFED PO PRN (18:08)
[2018-01-11] MEDS: DUONEB *Not for PRN Use IH SCH ×3 (09:00→20:43)
[2018-01-11] MEDS: PROTONIX PO SCH ×2 (10:27→22:10)
[2018-01-11] MEDS: MUCINEX ER PO SCH ×2 (10:27→22:10)
[2018-01-11] MEDS: LASIX IV SCH (10:27)
[2018-01-11] MEDS: PROAMATINE PO SCH ×3 (10:27→18:50)
[2018-01-11] MEDS: SODIUM CHLORIDE FLUSH SYRINGE 10 ML IV SCH ×2 (10:28→22:10)
--- NOTE | 2018-01-11 13:02 | Progress Note ---
Assessment and Plan Overall poor prognosis. Cont present cardiac regimen. Pt for possible hospice or LTAC placement. The patient has been seen in conjunction with Dr. Franz who agrees with the assessment and plan of care. - Patient Problems (1) Acute on chronic diastolic HF (heart failure) Current Visit: Yes Status: Acute (2) Melena Current Visit: Yes Status: Acute (3) Moderate to severe pulmonary hypertension Current Visit: Yes Status: Chronic (4) Pleural effusion Current Visit: Yes Status: Acute (5) Mitral stenosis Current Visit: Yes Status: Chronic (6) History of mitral valve replacement with bioprosthetic valve Current Visit: Yes Status: Chronic (7) Severe anemia Current Visit: Yes Status: Acute (8) Hypotension Current Visit: Yes Status: Acute (9) CAD (coronary artery disease) Current Visit: Yes Status: Chronic Qualifiers: Coronary Disease-Associated Artery/Lesion type: [place] artery Subjective Date of service: 01/11/18 Principal diagnosis: Acute GI bleeding; Acute Hypoxemic Resp Failure; Left pleural effusion Interval history: pt resting comfortably in bed, states he is feeling tired today. tele reviewed - remains in sinus tachycardia with HR 100s - 110s. Infrequent brief runs NSVT noted overnight. Objective Last Vital Signs Temp 98.1 F 01/11/18 07:37 Pulse 99 H 01/11/18 09:10 Resp 20 01/11/18 09:10 BP 92/65 01/11/18 07:37 Pulse Ox 98 01/11/18 09:00 - Physical Examination General: No Apparent Distress, Other (pallor) HEENT: Positive: EOMI, Normocephaly, Mucus Membranes Moist Neck: Positive: neck supple, trachea midline, JVD/HJR (elevated) Cardiac: Positive: Regular Rhythm, S1/S2 Lungs: Positive: clear to auscultation Neuro: Positive: Grossly Intact Abdomen: Positive: Soft, Active Bowel Sounds. Negative: Tender Skin: Positive: Clear. Negative: Rash Musculoskeletal: Normal Range of Motion Extremities: Absent: edema - Imaging and Cardiology EKG: image reviewed Echo: report reviewed (12/27/2017: limited study, EF 45-50%, LA severely dilated , bioprosthetic MV, interventricular septal flattening c/w RV volume or pressure overload, RV mod dilated, RV systolic function mod to severely reduced , minimal pericardial effusion, large pleural effusion) Cardiac cath: report reviewed (10/28/2017: [facility] at [place] showed 35% proximal LAD stenosis, 30% mid LAD stenosis, 20% prox LCX stenosis, 50% prox RCA stenosis, 40 % mid RCA stenosis) - Telemetry EKG Rhythm: Sinus Tachycardia - EKG Sinus rhythms and dysrhythmias: sinus tachycardia AV and intraventricular conduction: right bundle branch block - Allied health notes Allied health notes reviewed: nursing
--- NOTE | 2018-01-11 13:34 | Progress Note ---
Assessment and Plan GI bleed Hypotension secondary to GI bleed and dehydration Acute blood loss anemia Pneumonia, likely aspiration HFpEF--compensated Hypokalemia, Hepatitis C mitral valve stenosis (s/p replacement) GERD - pleural fluid transudative - continue supplemental oxygen as needed to keep sats > 90% - continue to hold anticoagulation re: symptomatic anemia and GI bleed issues - EGD showed two minute possible AVMs in 2nd portion, no active bleeding - for outpatient colonoscopy - optimize heart failure therapy per cardiology - following off AB's - continue midodrine - continue chronic home medications - continue PPI therapy - observe closely on telemetry - continue to monitor H&H - discharge planning LTAC vs Hospice (will defer to attending) ... re-evaluate in am & prn ... 25' Subjective Date of service: 01/11/18 Principal diagnosis: Acute GI bleeding; Acute Hypoxemic Resp Failure; Left pleural effusion Interval history: Patient is seen today for: Acute GI bleeding; Acute Hypoxemic Resp Failure; s/p MVR; CHF; Pulm Edema Seen and examined at bedside; 24-hour events reviewed; nursing and respiratory care staff consulted; no adverse overnight events reported to me; resting peacefully in bed; Objective Vital Signs - 12hr 01/11/18 01/11/18 01/11/18 04:05 07:37 09:00 Temperature 98.4 F 98.1 F Pulse Rate 101 H Pulse Rate [ 101 H Anterior Bilateral Throughout] Respiratory 18 18 Rate Respiratory 20 Rate [Anterior Bilateral Throughout] Blood Pressure 93/63 92/65 O2 Sat by Pulse 100 98 Oximetry 01/11/18 09:10 Temperature Pulse Rate Pulse Rate [ 99 H Anterior Bilateral Throughout] Respiratory Rate Respiratory 20 Rate [Anterior Bilateral Throughout] Blood Pressure O2 Sat by Pulse Oximetry Constitutional: no acute distress, asleep Eyes: non-icteric ENT: oropharynx moist, other (mallampati 2) Neck: supple, no lymphadenopathy, no JVD, other (no thyromegaly) Effort: mildly labored Ascultation: Bilateral: diminished breath sounds (bases), rales Percussion: Bilateral: not dull Cardiovascular: regular rate and rhythm, murmur noted, other (no rubs) Gastrointestinal: normoactive bowel sounds, soft, non-tender, non-distended, other (No HSM) Integumentary: other (poor turgor) Extremities: no cyanosis, pulses normal, no ischemia or petechiae, edema (1+ bilaterally) Neurologic: normal mental status, non-focal exam, pupils equal and round, motor strength normal and Psychiatric: depressed CBC and BMP: 01/10/18 09:17 01/07/18 06:08 ABG, PT/INR, D-dimer: ABG POC ABG pH 7.480 (7.35-7.45) H 01/07/18 15:41 POC ABG pCO2 26.4 (35-45) L 01/07/18 15:41 POC ABG pO2 47 (80-105) L 01/07/18 15:41 POC ABG HCO3 19.7 01/07/18 15:41 POC ABG Total CO2 20 01/07/18 15:41 POC ABG O2 Sat 86 01/07/18 15:41 PT/INR, D-dimer PT 17.6 Sec. (12.2-14.9) H 12/26/17 04:20 INR 1.36 (0.87-1.13) H 12/26/17 04:20 Abnormal lab findings: Abnormal Labs 12/23/17 12/23/17 12/23/17 20:00 20:00 20:00 RBC 2.43 L Hgb 6.6 L Hct 21.1 L MCH 27 L MCHC 31 L RDW 18.6 H Plt Count Lymph % (Auto) 11.0 L [place] % (Auto) 10.5 H Lymph # 0.9 L [place] # 0.9 H Seg Neutrophils % 76.6 H PT INR POC ABG pH POC ABG pCO2 POC ABG pO2 Sodium 129 L Potassium 3.3 L Chloride 90.9 L BUN 32 H Creatinine Glucose 116 H POC Glucose Calcium Total Bilirubin 3.80 H Direct Bilirubin 2.8 H AST 56 H NT-Pro-B Natriuret Pep Total Protein 6.2 L Albumin 2.6 L Hepatitis C Antibody Crossmatch 12/23/17 12/23/17 12/24/17 20:40 20:56 00:30 RBC Hgb Hct MCH MCHC RDW Plt Count Lymph % (Auto) [place] % (Auto) Lymph # [place] # Seg Neutrophils % PT 28.3 H INR 2.46 H POC ABG pH POC ABG pCO2 POC ABG pO2 Sodium Potassium Chloride BUN Creatinine Glucose POC Glucose Calcium Total Bilirubin Direct Bilirubin AST NT-Pro-B Natriuret Pep 4304 H Total Protein Albumin Hepatitis C Antibody Crossmatch See Detail 12/24/17 12/24/17 12/24/17 03:41 05:50 07:45 RBC Hgb 8.4 L 8.1 L Hct 26.3 L 24.5 L MCH MCHC RDW Plt Count Lymph % (Auto) [place] % (Auto) Lymph # [place] # Seg Neutrophils % PT INR POC ABG pH POC ABG pCO2 POC ABG pO2 Sodium Potassium Chloride BUN Creatinine Glucose POC Glucose 144 H Calcium Total Bilirubin Direct Bilirubin AST NT-Pro-B Natriuret Pep Total Protein Albumin Hepatitis C Antibody Crossmatch 12/24/17 12/25/17 12/25/17 12:18 04:45 04:45 RBC 2.70 L Hgb 7.5 L Hct 23.1 L MCH MCHC RDW 17.9 H Plt Count Lymph % (Auto) 4.8 L [place] % (Auto) 13.5 H Lymph # 0.4 L [place] # 1.3 H Seg Neutrophils % 81.5 H PT INR POC ABG pH POC ABG pCO2 POC ABG pO2 Sodium 136 L D Potassium Chloride BUN Creatinine Glucose 107 H POC Glucose 111 H Calcium Total Bilirubin Direct Bilirubin AST NT-Pro-B Natriuret Pep Total Protein Albumin Hepatitis C Antibody Crossmatch 12/25/17 12/25/17 12/26/17 04:45 04:45 04:20 RBC 3.09 L Hgb 8.6 L Hct 26.8 L MCH MCHC RDW 18.0 H Plt Count Lymph % (Auto) 6.9 L [place] % (Auto) 10.0 H Lymph # 0.6 L [place] # 0.9 H Seg Neutrophils % 82.1 H PT 18.2 H INR 1.42 H POC ABG pH POC ABG pCO2 POC ABG pO2 Sodium Potassium Chloride BUN Creatinine Glucose POC Glucose Calcium Total Bilirubin Direct Bilirubin AST NT-Pro-B Natriuret Pep Total Protein Albumin Hepatitis C Antibody Reactive A Crossmatch 12/26/17 12/27/17 12/27/17 04:20 14:25 14:25 RBC 3.11 L Hgb 8.7 L Hct 26.5 L MCH MCHC RDW 18.3 H Plt Count Lymph % (Auto) [place] % (Auto) Lymph # [place] # Seg Neutrophils % PT 17.6 H INR 1.36 H POC ABG pH POC ABG pCO2 POC ABG pO2 Sodium 135 L Potassium 3.4 L Chloride BUN Creatinine Glucose 132 H POC Glucose Calcium Total Bilirubin Direct Bilirubin AST NT-Pro-B Natriuret Pep Total Protein Albumin Hepatitis C Antibody Crossmatch 12/28/17 12/30/17 12/30/17 14:03 05:50 05:50 RBC 2.85 L Hgb 7.8 L Hct 24.1 L MCH 27 L MCHC RDW 17.3 H Plt Count Lymph % (Auto) 5.3 L [place] % (Auto) 11.2 H Lymph # 0.5 L [place] # 1.0 H Seg Neutrophils % 82.1 H PT INR POC ABG pH POC ABG pCO2 POC ABG pO2 Sodium 135 L 132 L Potassium Chloride 96.7 L BUN Creatinine 0.7 L 0.7 L Glucose POC Glucose Calcium 8.1 L Total Bilirubin 2.60 H Direct Bilirubin AST NT-Pro-B Natriuret Pep 5482 H Total Protein 5.4 L Albumin 2.4 L Hepatitis C Antibody Crossmatch 12/31/17 01/04/18 01/04/18 05:17 05:12 05:12 RBC 2.97 L Hgb 8.0 L 7.8 L Hct 24.2 L 24.9 L MCH 26 L MCHC 31 L RDW 18.3 H Plt Count 137 L Lymph % (Auto) 8.3 L [place] % (Auto) 14.0 H Lymph # 0.7 L [place] # 1.1 H Seg Neutrophils % 75.8 H PT INR POC ABG pH POC ABG pCO2 POC ABG pO2 Sodium 135 L Potassium Chloride BUN Creatinine 0.6 L Glucose POC Glucose Calcium Total Bilirubin Direct Bilirubin AST NT-Pro-B Natriuret Pep Total Protein Albumin Hepatitis C Antibody Crossmatch 01/05/18 01/06/18 01/07/18 15:31 05:43 06:08 RBC Hgb 8.4 L 8.2 L 7.6 L Hct 26.4 L 25.7 L 23.9 L MCH MCHC RDW Plt Count Lymph % (Auto) [place] % (Auto) Lymph # [place] # Seg Neutrophils % PT INR POC ABG pH POC ABG pCO2 POC ABG pO2 Sodium Potassium Chloride BUN Creatinine Glucose POC Glucose Calcium Total Bilirubin Direct Bilirubin AST NT-Pro-B Natriuret Pep Total Protein Albumin Hepatitis C Antibody Crossmatch 01/07/18 01/07/18 01/08/18 06:08 15:41 06:05 RBC Hgb 7.8 L Hct 24.6 L MCH MCHC RDW Plt Count Lymph % (Auto) [place] % (Auto) Lymph # [place] # Seg Neutrophils % PT INR POC ABG pH 7.480 H POC ABG pCO2 26.4 L POC ABG pO2 47 L Sodium 133 L Potassium Chloride 97.9 L BUN 7 L Creatinine 0.7 L Glucose POC Glucose Calcium Total Bilirubin Direct Bilirubin AST NT-Pro-B Natriuret Pep Total Protein Albumin Hepatitis C Antibody Crossmatch 01/09/18 01/10/18 05:04 09:17 RBC Hgb 7.6 L 7.9 L Hct 24.3 L 24.8 L MCH MCHC RDW Plt Count Lymph % (Auto) [place] % (Auto) Lymph # [place] # Seg Neutrophils % PT INR POC ABG pH POC ABG pCO2 POC ABG pO2 Sodium Potassium Chloride BUN Creatinine Glucose POC Glucose Calcium Total Bilirubin Direct Bilirubin AST NT-Pro-B Natriuret Pep Total Protein Albumin Hepatitis C Antibody Crossmatch Allied health notes reviewed: nursing
--- NOTE | 2018-01-11 15:45 | Progress Note ---
Assessment and Plan Assessment and plan: Acute hypoxic respiratory failure - Likely from underlying COPD with pleural effusion - repeat CXR following thoracentesis showed no pneumothorax - cont nebs, and wean off O2 as tolerated b/l pleural efusion L>R - s/p thoracentesis drained 1.5 L 12/29/17 and 1.1L 01/07/18 - cont on lasix Mitral valve stenosis with possible LV thrombus - Following evaluation at [facility] in 10/2017, he was felt not to be a candidate for transcatheter mitral valve replacement per [facility] team. He was discharged home on Xarelto in setting of MS. - Per cardiology he is a poor candidate to start on AC for anemia and recent GI bleed, Now xarelto on hold GI bleed - s/p 3 units PRBC - EGD 12/25 showed two minute possible AVMs in 2nd portion, no active bleeding - colonoscopy postponded as patient back on levophed intermittently - plan for coloscopy outpt, advanced diet as tolerated - cont to follow h/h Hypotension secondary to GI bleed and dehydration - Started Levophed drip from ER, required intermittently - will cont on low dose midodrine Acute blood loss anemia, transfused, monitor H&H Pneumonia, likely aspiration - treated with IV Levaquin, Zosyn, negative blood cultures - stopped abx 12/30/17 Chronic CHF, diastolic dysfunction, stable - monitor volume status, Ef 45-50% - started on diuretic by cardiology, cont to monitor Hypokalemia, replete and monitor as needed Hepatitis C, need outpt follow up GERD, PPI DVT Px - SCD Disposition: PT consulted, recommended HH with supportive care vs [facility]: patient is unfunded. Cardiology recommended hospice for inoperable MS, discussed with patient and he agrees. CM notified History Interval history: Patient was seen and evaluated this morning, patient said "I am breathing okay. " Hospitalist Physical - Physical exam Narrative exam: Not in cardiopulmonary distress. The patient appeared well nourished and normally developed. Vital signs as documented. Head exam is unremarkable. No scleral icterus . Neck is without jugular venous distension, thyromegaly, or carotid bruits. Lungs are decreased air entry on the bibasilar area. Cardiac exam reveals regular rate and Rhythm. Abdominal exam reveals normal bowel sounds, no masses, no organomegaly and no aortic enlargement. Extremities are nonedematous and both femoral and pedal pulses are normal. ORDER PACKER: Alert and oriented 3. No focal weakness. - Constitutional Vitals: Temp Pulse Resp BP Pulse Ox 97.7 F 104 H 18 93/64 98 01/11/18 12:43 01/11/18 13:29 01/11/18 13:29 01/11/18 12:43 01/11/18 12:43 General appearance: Present: mild distress Results - Labs CBC & Chem 7: 01/10/18 09:17 01/07/18 06:08 Labs: Laboratory Last Values WBC 8.2 K/mm3 (4.5-11.0) 01/04/18 05:12 RBC 2.97 M/mm3 (3.65-5.03) L 01/04/18 05:12 Hgb 7.9 gm/dl (11.8-15.2) L 01/10/18 09:17 Hct 24.8 % (35.5-45.6) L 01/10/18 09:17 MCV 84 fl (84-94) 01/04/18 05:12 MCH 26 pg (28-32) L 01/04/18 05:12 MCHC 31 % (32-34) L 01/04/18 05:12 RDW 18.3 % (13.2-15.2) H 01/04/18 05:12 Plt Count 137 K/mm3 (140-440) L 01/04/18 05:12 Lymph % (Auto) 8.3 % (13.4-35.0) L 01/04/18 05:12 [place] % (Auto) 14.0 % (0.0-7.3) H 01/04/18 05:12 Eos % (Auto) 0.7 % (0.0-4.3) 01/04/18 05:12 Baso % (Auto) 1.2 % (0.0-1.8) 01/04/18 05:12 Lymph # 0.7 K/mm3 (1.2-5.4) L 01/04/18 05:12 [place] # 1.1 K/mm3 (0.0-0.8) H 01/04/18 05:12 Eos # 0.1 K/mm3 (0.0-0.4) 01/04/18 05:12 Baso # 0.1 K/mm3 (0.0-0.1) 01/04/18 05:12 Seg Neutrophils % 75.8 % (40.0-70.0) H 01/04/18 05:12 Seg Neutrophils # 6.2 K/mm3 (1.8-7.7) 01/04/18 05:12 PT 17.6 Sec. (12.2-14.9) H 12/26/17 04:20 INR 1.36 (0.87-1.13) H 12/26/17 04:20 POC ABG pH 7.480 (7.35-7.45) H 01/07/18 15:41 POC ABG pCO2 26.4 (35-45) L 01/07/18 15:41 POC ABG pO2 47 (80-105) L 01/07/18 15:41 POC ABG HCO3 19.7 01/07/18 15:41 POC ABG Total CO2 20 01/07/18 15:41 POC ABG O2 Sat 86 01/07/18 15:41 POC ABG Base Excess -4 01/07/18 15:41 FiO2 32 % 01/07/18 15:41 Sodium 133 mmol/L (137-145) L 01/07/18 06:08 Potassium 3.7 mmol/L (3.6-5.0) 01/07/18 06:08 Chloride 97.9 mmol/L (98-107) L 01/07/18 06:08 Carbon Dioxide 22 mmol/L (22-30) 01/07/18 06:08 Anion Gap 17 mmol/L 01/07/18 06:08 BUN 7 mg/dL (9-20) L 01/07/18 06:08 Creatinine 0.7 mg/dL (0.8-1.5) L 01/07/18 06:08 Estimated GFR > 60 ml/min 01/07/18 06:08 BUN/Creatinine Ratio 10 % 01/07/18 06:08 Glucose 83 mg/dL (75-100) 01/07/18 06:08 POC Glucose 111 (70-105) H 12/24/17 12:18 Calcium 8.4 mg/dL (8.4-10.2) 01/07/18 06:08 Total Bilirubin 2.60 mg/dL (0.1-1.2) H 12/30/17 05:50 Direct Bilirubin 2.8 mg/dL (0-0.2) H 12/23/17 20:00 Indirect Bilirubin 1.0 mg/dL 12/23/17 20:00 AST 29 units/L (5-40) 12/30/17 05:50 ALT 16 units/L (7-56) 12/30/17 05:50 Alkaline Phosphatase 100 units/L (35-129) 12/30/17 05:50 NT-Pro-B Natriuret Pep 5482 pg/mL (0-900) H 12/28/17 14:03 Total Protein 5.4 g/dL (6.3-8.2) L 12/30/17 05:50 Albumin 2.4 g/dL (3.9-5) L 12/30/17 05:50 Albumin/Globulin Ratio 0.8 % 12/30/17 05:50 Fluid Type Thoracentesis 12/29/17 Unknown Fluid Color Straw 12/29/17 Unknown Fluid Appearance Hazy 12/29/17 Unknown Fluid WBC 30 /mm3 12/29/17 Unknown Fluid RBC 355 /mm3 12/29/17 Unknown Fluid Seg Neutrophils 23.0 % 12/29/17 Unknown Fluid Lymphocytes 42.0 % 12/29/17 Unknown Fluid Reactive Lymphs Not Reportable 12/29/17 Unknown Fluid Monocytes 35.0 % 12/29/17 Unknown Fluid Eosinophils Not Reportable 12/29/17 Unknown Fluid Basophils Not Reportable 12/29/17 Unknown Fluid Albumin 0.3 g/dL 12/29/17 Unknown Fluid LDH 32 12/29/17 Unknown Digoxin 1.3 ng/mL (0.9-2.0) 01/06/18 05:43 Hepatitis A IgM Ab Non-reactive (NonReactive) 12/25/17 04:45 Hep Bs Antigen Non-reactive (Negative) 12/25/17 04:45 Hep B Core IgM Ab Non-reactive (NonReactive) 12/25/17 04:45 Hepatitis C Antibody Reactive (NonReactive) A 12/25/17 04:45 Hepatitis C Genotype Not detected 12/25/17 05:10 Blood Type B POSITIVE 12/23/17 20:40 Antibody Screen Negative 12/23/17 20:40 Crossmatch See Detail 12/23/17 20:40
[2018-01-12] MEDS: PROAMATINE PO SCH ×3 (08:30→16:20)
--- NOTE | 2018-01-12 09:36 | Progress Note ---
Assessment and Plan Assessment and plan: Acute hypoxic respiratory failure - Likely from underlying COPD with pleural effusion - repeat CXR following thoracentesis showed no pneumothorax - cont nebs, and wean off O2 as tolerated b/l pleural efusion L>R - s/p thoracentesis drained 1.5 L 12/29/17 and 1.1L 01/07/18 - cont on lasix Mitral valve stenosis with possible LV thrombus - Following evaluation at [facility] in 10/2017, he was felt not to be a candidate for transcatheter mitral valve replacement per [facility] team. He was discharged home on Xarelto in setting of MS. - Per cardiology he is a poor candidate to start on AC for anemia and recent GI bleed, Now xarelto on hold GI bleed - s/p 3 units PRBC - EGD 12/25 showed two minute possible AVMs in 2nd portion, no active bleeding - colonoscopy postponded as patient back on levophed intermittently - plan for coloscopy outpt, advanced diet as tolerated - cont to follow h/h Hypotension secondary to GI bleed and dehydration - Started Levophed drip from ER, required intermittently - will cont on low dose midodrine Acute blood loss anemia, transfused, monitor H&H Pneumonia, likely aspiration - treated with IV Levaquin, Zosyn, negative blood cultures - stopped abx 12/30/17 Chronic CHF, diastolic dysfunction, stable - monitor volume status, Ef 45-50% - started on diuretic by cardiology, cont to monitor Hypokalemia, replete and monitor as needed Hepatitis C, need outpt follow up GERD, PPI DVT Px - SCD Disposition: Pending their approval for hospice placement History Interval history: Patient was seen and evaluated this morning, patient didn't have any complaints. Hospitalist Physical - Physical exam Narrative exam: Not in cardiopulmonary distress. The patient appeared well nourished and normally developed. Vital signs as documented. Head exam is unremarkable. No scleral icterus . Neck is without jugular venous distension, thyromegaly, or carotid bruits. Lungs are decreased air entry on the bibasilar area. Cardiac exam reveals regular rate and Rhythm. Abdominal exam reveals normal bowel sounds, no masses, no organomegaly and no aortic enlargement. Extremities are nonedematous and both femoral and pedal pulses are normal. MEDICAL DEVICE: Alert and oriented 3. No focal weakness. - Constitutional Vitals: Temp Pulse Resp BP Pulse Ox 97.7 F 105 H 18 85/61 97 01/12/18 08:29 01/12/18 08:29 01/12/18 08:29 01/12/18 08:29 01/12/18 08:29 General appearance: Present: mild distress Results - Labs CBC & Chem 7: 01/10/18 09:17 01/07/18 06:08 Labs: Laboratory Last Values WBC 8.2 K/mm3 (4.5-11.0) 01/04/18 05:12 RBC 2.97 M/mm3 (3.65-5.03) L 01/04/18 05:12 Hgb 7.9 gm/dl (11.8-15.2) L 01/10/18 09:17 Hct 24.8 % (35.5-45.6) L 01/10/18 09:17 MCV 84 fl (84-94) 01/04/18 05:12 MCH 26 pg (28-32) L 01/04/18 05:12 MCHC 31 % (32-34) L 01/04/18 05:12 RDW 18.3 % (13.2-15.2) H 01/04/18 05:12 Plt Count 137 K/mm3 (140-440) L 01/04/18 05:12 Lymph % (Auto) 8.3 % (13.4-35.0) L 01/04/18 05:12 [place] % (Auto) 14.0 % (0.0-7.3) H 01/04/18 05:12 Eos % (Auto) 0.7 % (0.0-4.3) 01/04/18 05:12 Baso % (Auto) 1.2 % (0.0-1.8) 01/04/18 05:12 Lymph # 0.7 K/mm3 (1.2-5.4) L 01/04/18 05:12 [place] # 1.1 K/mm3 (0.0-0.8) H 01/04/18 05:12 Eos # 0.1 K/mm3 (0.0-0.4) 01/04/18 05:12 Baso # 0.1 K/mm3 (0.0-0.1) 01/04/18 05:12 Seg Neutrophils % 75.8 % (40.0-70.0) H 01/04/18 05:12 Seg Neutrophils # 6.2 K/mm3 (1.8-7.7) 01/04/18 05:12 PT 17.6 Sec. (12.2-14.9) H 12/26/17 04:20 INR 1.36 (0.87-1.13) H 12/26/17 04:20 POC ABG pH 7.480 (7.35-7.45) H 01/07/18 15:41 POC ABG pCO2 26.4 (35-45) L 01/07/18 15:41 POC ABG pO2 47 (80-105) L 01/07/18 15:41 POC ABG HCO3 19.7 01/07/18 15:41 POC ABG Total CO2 20 01/07/18 15:41 POC ABG O2 Sat 86 01/07/18 15:41 POC ABG Base Excess -4 01/07/18 15:41 FiO2 32 % 01/07/18 15:41 Sodium 133 mmol/L (137-145) L 01/07/18 06:08 Potassium 3.7 mmol/L (3.6-5.0) 01/07/18 06:08 Chloride 97.9 mmol/L (98-107) L 01/07/18 06:08 Carbon Dioxide 22 mmol/L (22-30) 01/07/18 06:08 Anion Gap 17 mmol/L 01/07/18 06:08 BUN 7 mg/dL (9-20) L 01/07/18 06:08 Creatinine 0.7 mg/dL (0.8-1.5) L 01/07/18 06:08 Estimated GFR > 60 ml/min 01/07/18 06:08 BUN/Creatinine Ratio 10 % 01/07/18 06:08 Glucose 83 mg/dL (75-100) 01/07/18 06:08 POC Glucose 111 (70-105) H 12/24/17 12:18 Calcium 8.4 mg/dL (8.4-10.2) 01/07/18 06:08 Total Bilirubin 2.60 mg/dL (0.1-1.2) H 12/30/17 05:50 Direct Bilirubin 2.8 mg/dL (0-0.2) H 12/23/17 20:00 Indirect Bilirubin 1.0 mg/dL 12/23/17 20:00 AST 29 units/L (5-40) 12/30/17 05:50 ALT 16 units/L (7-56) 12/30/17 05:50 Alkaline Phosphatase 100 units/L (35-129) 12/30/17 05:50 NT-Pro-B Natriuret Pep 5482 pg/mL (0-900) H 12/28/17 14:03 Total Protein 5.4 g/dL (6.3-8.2) L 12/30/17 05:50 Albumin 2.4 g/dL (3.9-5) L 12/30/17 05:50 Albumin/Globulin Ratio 0.8 % 12/30/17 05:50 Fluid Type Thoracentesis 12/29/17 Unknown Fluid Color Straw 12/29/17 Unknown Fluid Appearance Hazy 12/29/17 Unknown Fluid WBC 30 /mm3 12/29/17 Unknown Fluid RBC 355 /mm3 12/29/17 Unknown Fluid Seg Neutrophils 23.0 % 12/29/17 Unknown Fluid Lymphocytes 42.0 % 12/29/17 Unknown Fluid Reactive Lymphs Not Reportable 12/29/17 Unknown Fluid Monocytes 35.0 % 12/29/17 Unknown Fluid Eosinophils Not Reportable 12/29/17 Unknown Fluid Basophils Not Reportable 12/29/17 Unknown Fluid Albumin 0.3 g/dL 12/29/17 Unknown Fluid LDH 32 12/29/17 Unknown Digoxin 1.3 ng/mL (0.9-2.0) 01/06/18 05:43 Hepatitis A IgM Ab Non-reactive (NonReactive) 12/25/17 04:45 Hep Bs Antigen Non-reactive (Negative) 12/25/17 04:45 Hep B Core IgM Ab Non-reactive (NonReactive) 12/25/17 04:45 Hepatitis C Antibody Reactive (NonReactive) A 12/25/17 04:45 Hepatitis C Genotype Not detected 12/25/17 05:10 Blood Type B POSITIVE 12/23/17 20:40 Antibody Screen Negative 12/23/17 20:40 Crossmatch See Detail 12/23/17 20:40
[2018-01-12] MEDS: MUCINEX ER PO SCH ×2 (10:37→21:33)
[2018-01-12] MEDS: LASIX IV SCH (10:37)
[2018-01-12] MEDS: PROTONIX PO SCH ×2 (10:38→21:33)
[2018-01-12] MEDS: SODIUM CHLORIDE FLUSH SYRINGE 10 ML IV SCH (10:38)
[2018-01-12] MEDS: DUONEB *Not for PRN Use IH SCH ×3 (10:42→20:40)
[2018-01-12 10:53] LABS: BUN/Creatinine Ratio 11; Blood Urea Nitrogen 9 mg/dL (9-20); Calcium 8.5 mg/dL (8.4-10.2); Hemolysis Index 1
--- NOTE | 2018-01-12 11:51 | Progress Note ---
Assessment and Plan Overall poor prognosis. Cont present cardiac regimen. Pt for possible hospice or LTAC placement. The patient has been seen in conjunction with Dr. Franz who agrees with the assessment and plan of care. - Patient Problems (1) Acute on chronic diastolic HF (heart failure) Current Visit: Yes Status: Acute (2) Melena Current Visit: Yes Status: Acute (3) Moderate to severe pulmonary hypertension Current Visit: Yes Status: Chronic (4) Pleural effusion Current Visit: Yes Status: Acute (5) Mitral stenosis Current Visit: Yes Status: Chronic (6) History of mitral valve replacement with bioprosthetic valve Current Visit: Yes Status: Chronic (7) Severe anemia Current Visit: Yes Status: Acute (8) Hypotension Current Visit: Yes Status: Acute (9) CAD (coronary artery disease) Current Visit: Yes Status: Chronic Qualifiers: Coronary Disease-Associated Artery/Lesion type: [place] artery Subjective Date of service: 01/12/18 Principal diagnosis: Acute GI bleeding; Acute Hypoxemic Resp Failure; Left pleural effusion Interval history: pt resting comfortably in bed, states he feels the same as yesterday. tele reviewed - remains in sinus tachycardia with HR 100s - 110s. Infrequent brief runs NSVT noted overnight. Objective Last Vital Signs Temp 97.7 F 01/12/18 08:29 Pulse 108 H 01/12/18 10:42 Resp 18 01/12/18 10:42 BP 85/61 01/12/18 08:29 Pulse Ox 100 01/12/18 10:00 - Physical Examination General: No Apparent Distress, Other (pallor) HEENT: Positive: EOMI, Normocephaly, Mucus Membranes Moist Neck: Positive: neck supple, trachea midline, JVD/HJR (elevated) Cardiac: Positive: Regular Rhythm, S1/S2 Lungs: Positive: Decreased Breath Sounds Neuro: Positive: Grossly Intact Abdomen: Positive: Soft, Active Bowel Sounds. Negative: Tender Skin: Positive: Clear. Negative: Rash Musculoskeletal: Normal Range of Motion Extremities: Absent: edema - Labs and Meds Comprehensive Metabolic Panel 01/12/18 Range/Units 09:57 Sodium 130 L (137-145) mmol/L Potassium 3.9 (3.6-5.0) mmol/L Chloride 94.3 L (98-107) mmol/L Carbon Dioxide 25 (22-30) mmol/L BUN 9 (9-20) mg/dL Creatinine 0.8 (0.8-1.5) mg/dL Glucose 107 H (75-100) mg/dL Calcium 8.5 (8.4-10.2) mg/dL - Imaging and Cardiology EKG: image reviewed Echo: report reviewed (12/27/2017: limited study, EF 45-50%, LA severely dilated , bioprosthetic MV, interventricular septal flattening c/w RV volume or pressure overload, RV mod dilated, RV systolic function mod to severely reduced , minimal pericardial effusion, large pleural effusion) Cardiac cath: report reviewed (10/28/2017: [facility] at [place] showed 35% proximal LAD stenosis, 30% mid LAD stenosis, 20% prox LCX stenosis, 50% prox RCA stenosis, 40 % mid RCA stenosis) - Telemetry EKG Rhythm: Sinus Tachycardia - EKG Sinus rhythms and dysrhythmias: sinus tachycardia AV and intraventricular conduction: right bundle branch block - Allied health notes Allied health notes reviewed: nursing
--- NOTE | 2018-01-12 13:32 | Progress Note ---
Assessment and Plan GI bleed Hypotension secondary to GI bleed and dehydration(resolved) Acute blood loss anemia Pneumonia, likely aspiration HFpEF--compensated Hypokalemia, Hepatitis C mitral valve stenosis (s/p replacement) GERD Bilateral pleural effusion s/p thoracentesis -Supplemental oxygen to keep O2 sats>90% -Bronchodilators -Cardioprotective -VTE prophylaxis--SCDs -Diuresis -chronic home medications -PPI -Discharge planning--apparently being assessed for hospice Subjective Date of service: 01/12/18 Principal diagnosis: Acute GI bleeding; Acute Hypoxemic Resp Failure; Left pleural effusion Interval history: Patient with PMH of COPD, GERD, HTN, PE, hepatitis C, mitral valve stenosis (s/ p replacement), and GI bleeding due to AVMs who presented to ED with c/o vague symptoms. He was found to be hypotensive, H/H 6.6/21.1 with melenotic stool. s/p 2 unit PRBC transfusion, on 2mcg of norepinephrine No hematemesis or hematochezia. Denies CP, SOB, dizziness, abdominal pain, N/V, or LGI symptoms such as diarrhea or constipation. Takes iron supplement and Xarelto at home (unsure of last dose, patient noted to be a poor historian). Drinks 2-3 beers daily. No previous treatment for hep C. s/p EGD Seen and examined. Vitals, labs, medications, chart reviewed. 24 hour events reviewed. No acute overnight events reported. s/p thoracentesis. Patient denies any chest pain, has shortness of breath. No fevers or chills, no abdominal pain, No active bleeding Objective Vital Signs - 12hr 01/12/18 01/12/18 01/12/18 08:00 08:29 10:00 Temperature 97.7 F Pulse Rate 105 H 105 H Pulse Rate [ Anterior Bilateral Throughout] Pulse Rate [ Posterior Bilateral] Respiratory 18 Rate Respiratory Rate [Anterior Bilateral Throughout] Respiratory Rate [Posterior Bilateral] Blood Pressure 85/61 O2 Sat by Pulse 97 100 Oximetry 01/12/18 10:42 Temperature Pulse Rate Pulse Rate [ 108 H Anterior Bilateral Throughout] Pulse Rate [ 100 H Posterior Bilateral] Respiratory Rate Respiratory 18 Rate [Anterior Bilateral Throughout] Respiratory 18 Rate [Posterior Bilateral] Blood Pressure O2 Sat by Pulse Oximetry Constitutional: no acute distress, alert Eyes: non-icteric ENT: oropharynx moist, other (mallampati 2) Neck: supple, no lymphadenopathy, no JVD, other (no thyromegaly) Effort: mildly labored Ascultation: Bilateral: diminished breath sounds (bases), rales Percussion: Bilateral: not dull Cardiovascular: regular rate and rhythm, murmur noted, other (no rubs) Gastrointestinal: normoactive bowel sounds, soft, non-tender, non-distended, other (No HSM) Integumentary: other (poor turgor) Extremities: no cyanosis, pulses normal, no ischemia or petechiae, edema (1+ bilaterally) Neurologic: normal mental status, non-focal exam, pupils equal and round, motor strength normal and Psychiatric: depressed CBC and BMP: 01/10/18 09:17 01/12/18 09:57 ABG, PT/INR, D-dimer: ABG POC ABG pH 7.480 (7.35-7.45) H 01/07/18 15:41 POC ABG pCO2 26.4 (35-45) L 01/07/18 15:41 POC ABG pO2 47 (80-105) L 01/07/18 15:41 POC ABG HCO3 19.7 01/07/18 15:41 POC ABG Total CO2 20 01/07/18 15:41 POC ABG O2 Sat 86 01/07/18 15:41 PT/INR, D-dimer PT 17.6 Sec. (12.2-14.9) H 12/26/17 04:20 INR 1.36 (0.87-1.13) H 12/26/17 04:20 Abnormal lab findings: Abnormal Labs 12/23/17 12/23/17 12/23/17 20:00 20:00 20:00 RBC 2.43 L Hgb 6.6 L Hct 21.1 L MCH 27 L MCHC 31 L RDW 18.6 H Plt Count Lymph % (Auto) 11.0 L [place] % (Auto) 10.5 H Lymph # 0.9 L [place] # 0.9 H Seg Neutrophils % 76.6 H PT INR POC ABG pH POC ABG pCO2 POC ABG pO2 Sodium 129 L Potassium 3.3 L Chloride 90.9 L BUN 32 H Creatinine Glucose 116 H POC Glucose Calcium Total Bilirubin 3.80 H Direct Bilirubin 2.8 H AST 56 H NT-Pro-B Natriuret Pep Total Protein 6.2 L Albumin 2.6 L Hepatitis C Antibody Crossmatch 12/23/17 12/23/17 12/24/17 20:40 20:56 00:30 RBC Hgb Hct MCH MCHC RDW Plt Count Lymph % (Auto) [place] % (Auto) Lymph # [place] # Seg Neutrophils % PT 28.3 H INR 2.46 H POC ABG pH POC ABG pCO2 POC ABG pO2 Sodium Potassium Chloride BUN Creatinine Glucose POC Glucose Calcium Total Bilirubin Direct Bilirubin AST NT-Pro-B Natriuret Pep 4304 H Total Protein Albumin Hepatitis C Antibody Crossmatch See Detail 12/24/17 12/24/17 12/24/17 03:41 05:50 07:45 RBC Hgb 8.4 L 8.1 L Hct 26.3 L 24.5 L MCH MCHC RDW Plt Count Lymph % (Auto) [place] % (Auto) Lymph # [place] # Seg Neutrophils % PT INR POC ABG pH POC ABG pCO2 POC ABG pO2 Sodium Potassium Chloride BUN Creatinine Glucose POC Glucose 144 H Calcium Total Bilirubin Direct Bilirubin AST NT-Pro-B Natriuret Pep Total Protein Albumin Hepatitis C Antibody Crossmatch 12/24/17 12/25/17 12/25/17 12:18 04:45 04:45 RBC 2.70 L Hgb 7.5 L Hct 23.1 L MCH MCHC RDW 17.9 H Plt Count Lymph % (Auto) 4.8 L [place] % (Auto) 13.5 H Lymph # 0.4 L [place] # 1.3 H Seg Neutrophils % 81.5 H PT INR POC ABG pH POC ABG pCO2 POC ABG pO2 Sodium 136 L D Potassium Chloride BUN Creatinine Glucose 107 H POC Glucose 111 H Calcium Total Bilirubin Direct Bilirubin AST NT-Pro-B Natriuret Pep Total Protein Albumin Hepatitis C Antibody Crossmatch 12/25/17 12/25/17 12/26/17 04:45 04:45 04:20 RBC 3.09 L Hgb 8.6 L Hct 26.8 L MCH MCHC RDW 18.0 H Plt Count Lymph % (Auto) 6.9 L [place] % (Auto) 10.0 H Lymph # 0.6 L [place] # 0.9 H Seg Neutrophils % 82.1 H PT 18.2 H INR 1.42 H POC ABG pH POC ABG pCO2 POC ABG pO2 Sodium Potassium Chloride BUN Creatinine Glucose POC Glucose Calcium Total Bilirubin Direct Bilirubin AST NT-Pro-B Natriuret Pep Total Protein Albumin Hepatitis C Antibody Reactive A Crossmatch 12/26/17 12/27/17 12/27/17 04:20 14:25 14:25 RBC 3.11 L Hgb 8.7 L Hct 26.5 L MCH MCHC RDW 18.3 H Plt Count Lymph % (Auto) [place] % (Auto) Lymph # [place] # Seg Neutrophils % PT 17.6 H INR 1.36 H POC ABG pH POC ABG pCO2 POC ABG pO2 Sodium 135 L Potassium 3.4 L Chloride BUN Creatinine Glucose 132 H POC Glucose Calcium Total Bilirubin Direct Bilirubin AST NT-Pro-B Natriuret Pep Total Protein Albumin Hepatitis C Antibody Crossmatch 12/28/17 12/30/17 12/30/17 14:03 05:50 05:50 RBC 2.85 L Hgb 7.8 L Hct 24.1 L MCH 27 L MCHC RDW 17.3 H Plt Count Lymph % (Auto) 5.3 L [place] % (Auto) 11.2 H Lymph # 0.5 L [place] # 1.0 H Seg Neutrophils % 82.1 H PT INR POC ABG pH POC ABG pCO2 POC ABG pO2 Sodium 135 L 132 L Potassium Chloride 96.7 L BUN Creatinine 0.7 L 0.7 L Glucose POC Glucose Calcium 8.1 L Total Bilirubin 2.60 H Direct Bilirubin AST NT-Pro-B Natriuret Pep 5482 H Total Protein 5.4 L Albumin 2.4 L Hepatitis C Antibody Crossmatch 12/31/17 01/04/18 01/04/18 05:17 05:12 05:12 RBC 2.97 L Hgb 8.0 L 7.8 L Hct 24.2 L 24.9 L MCH 26 L MCHC 31 L RDW 18.3 H Plt Count 137 L Lymph % (Auto) 8.3 L [place] % (Auto) 14.0 H Lymph # 0.7 L [place] # 1.1 H Seg Neutrophils % 75.8 H PT INR POC ABG pH POC ABG pCO2 POC ABG pO2 Sodium 135 L Potassium Chloride BUN Creatinine 0.6 L Glucose POC Glucose Calcium Total Bilirubin Direct Bilirubin AST NT-Pro-B Natriuret Pep Total Protein Albumin Hepatitis C Antibody Crossmatch 0801/06/18 01/07/18 15:31 05:43 06:08 RBC Hgb 8.4 L 8.2 L 7.6 L Hct 26.4 L 25.7 L 23.9 L MCH MCHC RDW Plt Count Lymph % (Auto) [place] % (Auto) Lymph # [place] # Seg Neutrophils % PT INR POC ABG pH POC ABG pCO2 POC ABG pO2 Sodium Potassium Chloride BUN Creatinine Glucose POC Glucose Calcium Total Bilirubin Direct Bilirubin AST NT-Pro-B Natriuret Pep Total Protein Albumin Hepatitis C Antibody Crossmatch 01/07/18 01/07/18 01/08/18 06:08 15:41 06:05 RBC Hgb 7.8 L Hct 24.6 L MCH MCHC RDW Plt Count Lymph % (Auto) [place] % (Auto) Lymph # [place] # Seg Neutrophils % PT INR POC ABG pH 7.480 H POC ABG pCO2 26.4 L POC ABG pO2 47 L Sodium 133 L Potassium Chloride 97.9 L BUN 7 L Creatinine 0.7 L Glucose POC Glucose Calcium Total Bilirubin Direct Bilirubin AST NT-Pro-B Natriuret Pep Total Protein Albumin Hepatitis C Antibody Crossmatch 01/09/18 01/10/18 01/12/18 05:04 09:17 09:57 RBC Hgb 7.6 L 7.9 L Hct 24.3 L 24.8 L MCH MCHC RDW Plt Count Lymph % (Auto) [place] % (Auto) Lymph # [place] # Seg Neutrophils % PT INR POC ABG pH POC ABG pCO2 POC ABG pO2 Sodium 130 L Potassium Chloride 94.3 L BUN Creatinine Glucose 107 H POC Glucose Calcium Total Bilirubin Direct Bilirubin AST NT-Pro-B Natriuret Pep Total Protein Albumin Hepatitis C Antibody Crossmatch Allied health notes reviewed: nursing
[2018-01-13] MEDS: DUONEB *Not for PRN Use IH SCH ×3 (08:11→20:14)
[2018-01-13] MEDS: PROAMATINE PO SCH ×3 (08:18→16:12)
[2018-01-13] MEDS: PROTONIX PO SCH ×2 (10:58→21:21)
[2018-01-13] MEDS: MUCINEX ER PO SCH ×2 (10:58→21:21)
[2018-01-13] MEDS: LASIX IV SCH (10:59)
[2018-01-13] MEDS: SODIUM CHLORIDE FLUSH SYRINGE 10 ML IV SCH ×3 (10:59→21:22)
--- NOTE | 2018-01-13 12:42 | Progress Note ---
Assessment and Plan Overall poor prognosis. Pt has multiple chronic comorbidities, including heart failure, severe pulmonary HTN, mod to severe mitral stenosis, and has been deemed inoperable from a cardiac standpoint. He does not appear to be clinically improving despite medical management. Therefore, hospice care is highly recommended for this patient at this time. [facility] Cont present cardiac regimen. The patient has been seen in conjunction with Dr. Franz who agrees with the assessment and plan of care. - Patient Problems (1) Acute on chronic diastolic HF (heart failure) Current Visit: Yes Status: Acute (2) Melena Current Visit: Yes Status: Acute (3) Moderate to severe pulmonary hypertension Current Visit: Yes Status: Chronic (4) Pleural effusion Current Visit: Yes Status: Acute (5) Mitral stenosis Current Visit: Yes Status: Chronic (6) History of mitral valve replacement with bioprosthetic valve Current Visit: Yes Status: Chronic (7) Severe anemia Current Visit: Yes Status: Acute (8) Hypotension Current Visit: Yes Status: Acute (9) CAD (coronary artery disease) Current Visit: Yes Status: Chronic Qualifiers: Coronary Disease-Associated Artery/Lesion type: [place] artery Subjective Date of service: 01/13/18 Principal diagnosis: Acute GI bleeding; Acute Hypoxemic Resp Failure; Left pleural effusion Interval history: pt resting comfortably in bed, states he feels the same as yesterday. tele reviewed - remains in sinus tachycardia with HR 100s - 110s. Infrequent brief runs NSVT noted overnight. Objective Last Vital Signs Temp 97.4 F L 01/12/18 17:11 Pulse 125 H 01/13/18 08:15 Resp 24 01/13/18 08:15 BP 78/54 01/12/18 17:11 Pulse Ox 98 01/13/18 08:41 - Physical Examination General: No Apparent Distress, Other (pallor) HEENT: Positive: EOMI, Normocephaly, Mucus Membranes Moist Neck: Positive: neck supple, trachea midline, JVD/HJR (elevated) Cardiac: Positive: Regular Rhythm, S1/S2 Lungs: Positive: Decreased Breath Sounds Neuro: Positive: Grossly Intact Abdomen: Positive: Soft, Active Bowel Sounds. Negative: Tender Skin: Positive: Clear. Negative: Rash Musculoskeletal: Normal Range of Motion Extremities: Absent: edema - Imaging and Cardiology EKG: image reviewed Echo: report reviewed (12/27/2017: limited study, EF 45-50%, LA severely dilated , bioprosthetic MV, interventricular septal flattening c/w RV volume or pressure overload, RV mod dilated, RV systolic function mod to severely reduced , minimal pericardial effusion, large pleural effusion) Cardiac cath: report reviewed (10/28/2017: [facility] at [place] showed 35% proximal LAD stenosis, 30% mid LAD stenosis, 20% prox LCX stenosis, 50% prox RCA stenosis, 40 % mid RCA stenosis) - EKG Sinus rhythms and dysrhythmias: sinus tachycardia AV and intraventricular conduction: right bundle branch block - Allied health notes Allied health notes reviewed: nursing
--- NOTE | 2018-01-13 13:13 | Progress Note ---
Assessment and Plan GI bleed Hypotension secondary to GI bleed and dehydration Acute blood loss anemia Pneumonia, likely aspiration HFpEF--compensated Hypokalemia, Hepatitis C mitral valve stenosis (s/p replacement) GERD - pleural fluid transudative - continue supplemental oxygen as needed to keep sats > 90% - continue to hold anticoagulation re: symptomatic anemia and GI bleed issues - EGD showed two minute possible AVMs in 2nd portion, no active bleeding - for outpatient colonoscopy - optimize heart failure therapy per cardiology - following off AB's - continue midodrine - continue chronic home medications - continue PPI therapy - observe closely on telemetry - continue to monitor H&H - discharge planning LTAC vs Hospice (will defer to attending) ... re-evaluate in am & prn ... 25' Subjective Date of service: 01/13/18 Principal diagnosis: Acute GI bleeding; Acute Hypoxemic Resp Failure; Left pleural effusion Interval history: Patient is seen today for: Acute GI bleeding; Acute Hypoxemic Resp Failure; s/p MVR; CHF; Pulm Edema Seen and examined at bedside; 24-hour events reviewed; nursing and respiratory care staff consulted; no adverse overnight events reported to me; resting peacefully in bed; Objective Vital Signs - 12hr 01/13/18 01/13/18 01/13/18 04:00 08:00 08:15 Pulse Rate 124 H Pulse Rate [ 125 H Anterior Bilateral Throughout] Pulse Rate [ 124 H 125 H Posterior Bilateral] Respiratory 24 Rate [Anterior Bilateral Throughout] Respiratory 24 24 Rate [Posterior Bilateral] O2 Sat by Pulse Oximetry 01/13/18 01/13/18 08:41 12:45 Pulse Rate 123 H Pulse Rate [ Anterior Bilateral Throughout] Pulse Rate [ Posterior Bilateral] Respiratory Rate [Anterior Bilateral Throughout] Respiratory Rate [Posterior Bilateral] O2 Sat by Pulse 98 Oximetry Constitutional: no acute distress, asleep Eyes: non-icteric ENT: oropharynx moist, other (mallampati 2) Neck: supple, no lymphadenopathy, no JVD, other (no thyromegaly) Effort: mildly labored Ascultation: Bilateral: diminished breath sounds (bases), rales Percussion: Bilateral: not dull Cardiovascular: regular rate and rhythm, murmur noted, other (no rubs) Gastrointestinal: normoactive bowel sounds, soft, non-tender, non-distended, other (No HSM) Integumentary: other (poor turgor) Extremities: no cyanosis, pulses normal, no ischemia or petechiae, edema (1+ bilaterally) Neurologic: normal mental status, non-focal exam, pupils equal and round, motor strength normal and Psychiatric: depressed CBC and BMP: 01/10/18 09:17 01/12/18 09:57 ABG, PT/INR, D-dimer: ABG POC ABG pH 7.480 (7.35-7.45) H 01/07/18 15:41 POC ABG pCO2 26.4 (35-45) L 01/07/18 15:41 POC ABG pO2 47 (80-105) L 01/07/18 15:41 POC ABG HCO3 19.7 01/07/18 15:41 POC ABG Total CO2 20 01/07/18 15:41 POC ABG O2 Sat 86 01/07/18 15:41 PT/INR, D-dimer PT 17.6 Sec. (12.2-14.9) H 12/26/17 04:20 INR 1.36 (0.87-1.13) H 12/26/17 04:20 Abnormal lab findings: Abnormal Labs 12/23/17 12/23/17 12/23/17 20:00 20:00 20:00 RBC 2.43 L Hgb 6.6 L Hct 21.1 L MCH 27 L MCHC 31 L RDW 18.6 H Plt Count Lymph % (Auto) 11.0 L [place] % (Auto) 10.5 H Lymph # 0.9 L [place] # 0.9 H Seg Neutrophils % 76.6 H PT INR POC ABG pH POC ABG pCO2 POC ABG pO2 Sodium 129 L Potassium 3.3 L Chloride 90.9 L BUN 32 H Creatinine Glucose 116 H POC Glucose Calcium Total Bilirubin 3.80 H Direct Bilirubin 2.8 H AST 56 H NT-Pro-B Natriuret Pep Total Protein 6.2 L Albumin 2.6 L Hepatitis C Antibody Crossmatch 12/23/17 12/23/17 12/24/17 20:40 20:56 00:30 RBC Hgb Hct MCH MCHC RDW Plt Count Lymph % (Auto) [place] % (Auto) Lymph # [place] # Seg Neutrophils % PT 28.3 H INR 2.46 H POC ABG pH POC ABG pCO2 POC ABG pO2 Sodium Potassium Chloride BUN Creatinine Glucose POC Glucose Calcium Total Bilirubin Direct Bilirubin AST NT-Pro-B Natriuret Pep 4304 H Total Protein Albumin Hepatitis C Antibody Crossmatch See Detail 12/24/17 12/24/17 12/24/17 03:41 05:50 07:45 RBC Hgb 8.4 L 8.1 L Hct 26.3 L 24.5 L MCH MCHC RDW Plt Count Lymph % (Auto) [place] % (Auto) Lymph # [place] # Seg Neutrophils % PT INR POC ABG pH POC ABG pCO2 POC ABG pO2 Sodium Potassium Chloride BUN Creatinine Glucose POC Glucose 144 H Calcium Total Bilirubin Direct Bilirubin AST NT-Pro-B Natriuret Pep Total Protein Albumin Hepatitis C Antibody Crossmatch 12/24/17 12/25/17 12/25/17 12:18 04:45 04:45 RBC 2.70 L Hgb 7.5 L Hct 23.1 L MCH MCHC RDW 17.9 H Plt Count Lymph % (Auto) 4.8 L [place] % (Auto) 13.5 H Lymph # 0.4 L [place] # 1.3 H Seg Neutrophils % 81.5 H PT INR POC ABG pH POC ABG pCO2 POC ABG pO2 Sodium 136 L D Potassium Chloride BUN Creatinine Glucose 107 H POC Glucose 111 H Calcium Total Bilirubin Direct Bilirubin AST NT-Pro-B Natriuret Pep Total Protein Albumin Hepatitis C Antibody Crossmatch 12/25/17 12/25/17 12/26/17 04:45 04:45 04:20 RBC 3.09 L Hgb 8.6 L Hct 26.8 L MCH MCHC RDW 18.0 H Plt Count Lymph % (Auto) 6.9 L [place] % (Auto) 10.0 H Lymph # 0.6 L [place] # 0.9 H Seg Neutrophils % 82.1 H PT 18.2 H INR 1.42 H POC ABG pH POC ABG pCO2 POC ABG pO2 Sodium Potassium Chloride BUN Creatinine Glucose POC Glucose Calcium Total Bilirubin Direct Bilirubin AST NT-Pro-B Natriuret Pep Total Protein Albumin Hepatitis C Antibody Reactive A Crossmatch 12/26/17 12/27/17 12/27/17 04:20 14:25 14:25 RBC 3.11 L Hgb 8.7 L Hct 26.5 L MCH MCHC RDW 18.3 H Plt Count Lymph % (Auto) [place] % (Auto) Lymph # [place] # Seg Neutrophils % PT 17.6 H INR 1.36 H POC ABG pH POC ABG pCO2 POC ABG pO2 Sodium 135 L Potassium 3.4 L Chloride BUN Creatinine Glucose 132 H POC Glucose Calcium Total Bilirubin Direct Bilirubin AST NT-Pro-B Natriuret Pep Total Protein Albumin Hepatitis C Antibody Crossmatch 12/28/17 12/30/17 12/30/17 14:03 05:50 05:50 RBC 2.85 L Hgb 7.8 L Hct 24.1 L MCH 27 L MCHC RDW 17.3 H Plt Count Lymph % (Auto) 5.3 L [place] % (Auto) 11.2 H Lymph # 0.5 L [place] # 1.0 H Seg Neutrophils % 82.1 H PT INR POC ABG pH POC ABG pCO2 POC ABG pO2 Sodium 135 L 132 L Potassium Chloride 96.7 L BUN Creatinine 0.7 L 0.7 L Glucose POC Glucose Calcium 8.1 L Total Bilirubin 2.60 H Direct Bilirubin AST NT-Pro-B Natriuret Pep 5482 H Total Protein 5.4 L Albumin 2.4 L Hepatitis C Antibody Crossmatch 12/31/17 01/04/18 01/04/18 05:17 05:12 05:12 RBC 2.97 L Hgb 8.0 L 7.8 L Hct 24.2 L 24.9 L MCH 26 L MCHC 31 L RDW 18.3 H Plt Count 137 L Lymph % (Auto) 8.3 L [place] % (Auto) 14.0 H Lymph # 0.7 L [place] # 1.1 H Seg Neutrophils % 75.8 H PT INR POC ABG pH POC ABG pCO2 POC ABG pO2 Sodium 135 L Potassium Chloride BUN Creatinine 0.6 L Glucose POC Glucose Calcium Total Bilirubin Direct Bilirubin AST NT-Pro-B Natriuret Pep Total Protein Albumin Hepatitis C Antibody Crossmatch 01/05/18 01/06/18 01/07/18 15:31 05:43 06:08 RBC Hgb 8.4 L 8.2 L 7.6 L Hct 26.4 L 25.7 L 23.9 L MCH MCHC RDW Plt Count Lymph % (Auto) [place] % (Auto) Lymph # [place] # Seg Neutrophils % PT INR POC ABG pH POC ABG pCO2 POC ABG pO2 Sodium Potassium Chloride BUN Creatinine Glucose POC Glucose Calcium Total Bilirubin Direct Bilirubin AST NT-Pro-B Natriuret Pep Total Protein Albumin Hepatitis C Antibody Crossmatch 01/07/18 01/07/18 01/08/18 06:08 15:41 06:05 RBC Hgb 7.8 L Hct 24.6 L MCH MCHC RDW Plt Count Lymph % (Auto) [place] % (Auto) Lymph # [place] # Seg Neutrophils % PT INR POC ABG pH 7.480 H POC ABG pCO2 26.4 L POC ABG pO2 47 L Sodium 133 L Potassium Chloride 97.9 L BUN 7 L Creatinine 0.7 L Glucose POC Glucose Calcium Total Bilirubin Direct Bilirubin AST NT-Pro-B Natriuret Pep Total Protein Albumin Hepatitis C Antibody Crossmatch 01/09/18 01/10/18 01/12/18 05:04 09:17 09:57 RBC Hgb 7.6 L 7.9 L Hct 24.3 L 24.8 L MCH MCHC RDW Plt Count Lymph % (Auto) [place] % (Auto) Lymph # [place] # Seg Neutrophils % PT INR POC ABG pH POC ABG pCO2 POC ABG pO2 Sodium 130 L Potassium Chloride 94.3 L BUN Creatinine Glucose 107 H POC Glucose Calcium Total Bilirubin Direct Bilirubin AST NT-Pro-B Natriuret Pep Total Protein Albumin Hepatitis C Antibody Crossmatch Allied health notes reviewed: nursing
--- NOTE | 2018-01-13 17:16 | Progress Note ---
Assessment and Plan Assessment and plan: Acute hypoxic respiratory failure - Likely from underlying COPD with pleural effusion - repeat CXR following thoracentesis showed no pneumothorax - cont nebs, and wean off O2 as tolerated b/l pleural efusion L>R - s/p thoracentesis drained 1.5 L 12/29/17 and 1.1L 01/07/18 - cont on lasix Mitral valve stenosis with possible LV thrombus - Following evaluation at [facility] in 10/2017, he was felt not to be a candidate for transcatheter mitral valve replacement per [facility] team. He was discharged home on Xarelto in setting of MS. - Per cardiology he is a poor candidate to start on AC for anemia and recent GI bleed, Now xarelto on hold GI bleed - s/p 3 units PRBC - EGD 12/25 showed two minute possible AVMs in 2nd portion, no active bleeding - colonoscopy postponded as patient back on levophed intermittently - plan for coloscopy outpt, advanced diet as tolerated - cont to follow h/h Hypotension secondary to GI bleed and dehydration - Started Levophed drip from ER, required intermittently - will cont on low dose midodrine Acute blood loss anemia, transfused, monitor H&H Pneumonia, likely aspiration - treated with IV Levaquin, Zosyn, negative blood cultures - stopped abx 12/30/17 Chronic CHF, diastolic dysfunction, stable - monitor volume status, Ef 45-50% - started on diuretic by cardiology, cont to monitor Hypokalemia, replete and monitor as needed Hepatitis C, need outpt follow up GERD, PPI DVT Px - SCD Disposition: Pending their approval for hospice placement Overall poor prognosis. Pt has multiple chronic comorbidities, including heart failure, severe pulmonary HTN, mod to severe mitral stenosis, and has been deemed inoperable from a cardiac standpoint. He does not appear to be clinically improving despite medical management. Therefore, hospice care is highly recommended for this patient at this time. [facility] History Interval history: Patient was seen and evaluated this morning, no new complaints. Hospitalist Physical - Physical exam Narrative exam: Not in cardiopulmonary distress. The patient appeared well nourished and normally developed. Vital signs as documented. Head exam is unremarkable. No scleral icterus . Neck is without jugular venous distension, thyromegaly, or carotid bruits. Lungs are decreased air entry on the bibasilar area. Cardiac exam reveals regular rate and Rhythm. Abdominal exam reveals normal bowel sounds, no masses, no organomegaly and no aortic enlargement. Extremities are nonedematous and both femoral and pedal pulses are normal. CORE INSERTER: Alert and oriented 3. No focal weakness. - Constitutional Vitals: Temp Pulse Resp BP Pulse Ox 97.4 F L 124 H 20 78/54 98 01/12/18 17:11 01/13/18 13:48 01/13/18 13:48 01/12/18 17:11 01/13/18 08:41 General appearance: Present: mild distress Results - Labs CBC & Chem 7: 01/10/18 09:17 01/12/18 09:57 Labs: Laboratory Last Values WBC 8.2 K/mm3 (4.5-11.0) 01/04/18 05:12 RBC 2.97 M/mm3 (3.65-5.03) L 01/04/18 05:12 Hgb 7.9 gm/dl (11.8-15.2) L 01/10/18 09:17 Hct 24.8 % (35.5-45.6) L 01/10/18 09:17 MCV 84 fl (84-94) 01/04/18 05:12 MCH 26 pg (28-32) L 01/04/18 05:12 MCHC 31 % (32-34) L 01/04/18 05:12 RDW 18.3 % (13.2-15.2) H 01/04/18 05:12 Plt Count 137 K/mm3 (140-440) L 01/04/18 05:12 Lymph % (Auto) 8.3 % (13.4-35.0) L 01/04/18 05:12 [place] % (Auto) 14.0 % (0.0-7.3) H 01/04/18 05:12 Eos % (Auto) 0.7 % (0.0-4.3) 01/04/18 05:12 Baso % (Auto) 1.2 % (0.0-1.8) 01/04/18 05:12 Lymph # 0.7 K/mm3 (1.2-5.4) L 01/04/18 05:12 [place] # 1.1 K/mm3 (0.0-0.8) H 01/04/18 05:12 Eos # 0.1 K/mm3 (0.0-0.4) 01/04/18 05:12 Baso # 0.1 K/mm3 (0.0-0.1) 01/04/18 05:12 Seg Neutrophils % 75.8 % (40.0-70.0) H 01/04/18 05:12 Seg Neutrophils # 6.2 K/mm3 (1.8-7.7) 01/04/18 05:12 PT 17.6 Sec. (12.2-14.9) H 12/26/17 04:20 INR 1.36 (0.87-1.13) H 12/26/17 04:20 POC ABG pH 7.480 (7.35-7.45) H 01/07/18 15:41 POC ABG pCO2 26.4 (35-45) L 01/07/18 15:41 POC ABG pO2 47 (80-105) L 01/07/18 15:41 POC ABG HCO3 19.7 01/07/18 15:41 POC ABG Total CO2 20 01/07/18 15:41 POC ABG O2 Sat 86 01/07/18 15:41 POC ABG Base Excess -4 01/07/18 15:41 FiO2 32 % 01/07/18 15:41 Sodium 130 mmol/L (137-145) L 01/12/18 09:57 Potassium 3.9 mmol/L (3.6-5.0) 01/12/18 09:57 Chloride 94.3 mmol/L (98-107) L 01/12/18 09:57 Carbon Dioxide 25 mmol/L (22-30) 01/12/18 09:57 Anion Gap 15 mmol/L 01/12/18 09:57 BUN 9 mg/dL (9-20) 01/12/18 09:57 Creatinine 0.8 mg/dL (0.8-1.5) 01/12/18 09:57 Estimated GFR > 60 ml/min 01/12/18 09:57 BUN/Creatinine Ratio 11 % 01/12/18 09:57 Glucose 107 mg/dL (75-100) H 01/12/18 09:57 POC Glucose 111 (70-105) H 12/24/17 12:18 Calcium 8.5 mg/dL (8.4-10.2) 01/12/18 09:57 Total Bilirubin 2.60 mg/dL (0.1-1.2) H 12/30/17 05:50 Direct Bilirubin 2.8 mg/dL (0-0.2) H 12/23/17 20:00 Indirect Bilirubin 1.0 mg/dL 12/23/17 20:00 AST 29 units/L (5-40) 12/30/17 05:50 ALT 16 units/L (7-56) 12/30/17 05:50 Alkaline Phosphatase 100 units/L (35-129) 12/30/17 05:50 NT-Pro-B Natriuret Pep 5482 pg/mL (0-900) H 12/28/17 14:03 Total Protein 5.4 g/dL (6.3-8.2) L 12/30/17 05:50 Albumin 2.4 g/dL (3.9-5) L 12/30/17 05:50 Albumin/Globulin Ratio 0.8 % 12/30/17 05:50 Fluid Type Thoracentesis 12/29/17 Unknown Fluid Color Straw 12/29/17 Unknown Fluid Appearance Hazy 12/29/17 Unknown Fluid WBC 30 /mm3 12/29/17 Unknown Fluid RBC 355 /mm3 12/29/17 Unknown Fluid Seg Neutrophils 23.0 % 12/29/17 Unknown Fluid Lymphocytes 42.0 % 12/29/17 Unknown Fluid Reactive Lymphs Not Reportable 12/29/17 Unknown Fluid Monocytes 35.0 % 12/29/17 Unknown Fluid Eosinophils Not Reportable 12/29/17 Unknown Fluid Basophils Not Reportable 12/29/17 Unknown Fluid Albumin 0.3 g/dL 12/29/17 Unknown Fluid LDH 32 12/29/17 Unknown Digoxin 1.3 ng/mL (0.9-2.0) 01/06/18 05:43 Hepatitis A IgM Ab Non-reactive (NonReactive) 12/25/17 04:45 Hep Bs Antigen Non-reactive (Negative) 12/25/17 04:45 Hep B Core IgM Ab Non-reactive (NonReactive) 12/25/17 04:45 Hepatitis C Antibody Reactive (NonReactive) A 12/25/17 04:45 Hepatitis C Genotype Not detected 12/25/17 05:10 Blood Type B POSITIVE 12/23/17 20:40 Antibody Screen Negative 12/23/17 20:40 Crossmatch See Detail 12/23/17 20:40
[2018-01-14] MEDS: AMBIEN PO PRN (04:21)
[2018-01-14] MEDS: PROAMATINE PO SCH ×3 (08:35→15:56)
[2018-01-14] MEDS: DUONEB *Not for PRN Use IH SCH ×3 (08:44→21:28)
--- NOTE | 2018-01-14 10:56 | Progress Note ---
Assessment and Plan Overall poor prognosis. Pt has multiple chronic comorbidities, including heart failure, severe pulmonary HTN, mod to severe mitral stenosis, and has been deemed inoperable from a cardiac standpoint. He does not appear to be clinically improving despite medical management. Therefore, hospice care is highly recommended for this patient at this time. [facility] Cont present cardiac regimen. The patient has been seen in conjunction with Dr. Franz who agrees with the assessment and plan of care. - Patient Problems (1) Acute on chronic diastolic HF (heart failure) Current Visit: Yes Status: Acute (2) Melena Current Visit: Yes Status: Acute (3) Moderate to severe pulmonary hypertension Current Visit: Yes Status: Chronic (4) Pleural effusion Current Visit: Yes Status: Acute (5) Mitral stenosis Current Visit: Yes Status: Chronic (6) History of mitral valve replacement with bioprosthetic valve Current Visit: Yes Status: Chronic (7) Severe anemia Current Visit: Yes Status: Acute (8) Hypotension Current Visit: Yes Status: Acute (9) CAD (coronary artery disease) Current Visit: Yes Status: Chronic Qualifiers: Coronary Disease-Associated Artery/Lesion type: [place] artery (7) Hemoptysis Current Visit: Yes Status: Acute Subjective Date of service: 01/14/18 Principal diagnosis: Acute GI bleeding; Acute Hypoxemic Resp Failure; Left pleural effusion Interval history: pt resting comfortably in bed, states he feels the same as yesterday. bin at bedside with apparent blood tinged phlegm. tele reviewed - remains in sinus tachycardia. Infrequent brief runs NSVT noted overnight. Objective Last Vital Signs Temp 97.6 F 01/14/18 08:00 Pulse 117 H 01/14/18 08:52 Resp 22 01/14/18 08:52 BP 92/66 01/14/18 08:00 Pulse Ox 99 01/14/18 08:48 - Physical Examination General: No Apparent Distress, Other (pallor) HEENT: Positive: EOMI, Normocephaly, Mucus Membranes Moist Neck: Positive: neck supple, trachea midline, JVD/HJR (elevated) Cardiac: Positive: Regular Rhythm, S1/S2 Lungs: Positive: Decreased Breath Sounds Neuro: Positive: Grossly Intact Abdomen: Positive: Soft, Active Bowel Sounds. Negative: Tender Skin: Positive: Clear. Negative: Rash Musculoskeletal: Normal Range of Motion Extremities: Absent: edema - Imaging and Cardiology EKG: image reviewed Echo: report reviewed (12/27/2017: limited study, EF 45-50%, LA severely dilated , bioprosthetic MV, interventricular septal flattening c/w RV volume or pressure overload, RV mod dilated, RV systolic function mod to severely reduced , minimal pericardial effusion, large pleural effusion) Cardiac cath: report reviewed (10/28/2017: [facility] at [place] showed 35% proximal LAD stenosis, 30% mid LAD stenosis, 20% prox LCX stenosis, 50% prox RCA stenosis, 40 % mid RCA stenosis) - EKG Sinus rhythms and dysrhythmias: sinus tachycardia AV and intraventricular conduction: right bundle branch block - Allied health notes Allied health notes reviewed: nursing
[2018-01-14] MEDS: PROTONIX PO SCH ×2 (11:03→22:55)
[2018-01-14] MEDS: MUCINEX ER PO SCH ×2 (11:04→22:55)
[2018-01-14] MEDS: SODIUM CHLORIDE FLUSH SYRINGE 10 ML IV SCH ×2 (11:04→22:55)
[2018-01-14] MEDS: LASIX IV SCH (11:04)
[2018-01-14 11:42] LABS: Hematocrit 25.3 % (35.5-45.6); Hemoglobin 7.7 gm/dl (11.8-15.2); Mean Corpuscular HGB Conc 30 % (32-34); Mean Corpuscular Hemoglobin 25 pg (28-32); Mean Corpuscular Volume 81 fl (84-94); Platelet Count 300 K/mm3 (140-440); Red Blood Count 3.12 M/mm3 (3.65-5.03); Red Cell Distribution Width 18.8 % (13.2-15.2)
[2018-01-14 12:07] LABS: BUN/Creatinine Ratio 20; Blood Urea Nitrogen 22 mg/dL (9-20); Calcium 8.7 mg/dL (8.4-10.2); Hemolysis Index 68
--- NOTE | 2018-01-14 13:49 | Progress Note ---
Assessment and Plan Patient sleeping at this time.Patient is on 5 litres O2 via nasal canula.Oe saturation 99%.No acute respiratory distress, . - Patient Problems (1) Acute on chronic diastolic HF (heart failure) Current Visit: Yes Status: Acute Plan to address problem: Mangement as per cardiology. (2) Pleural effusion Current Visit: Yes Status: Acute Plan to address problem: Undergone right thoracentesis .. Appears pleural fluid did not send for analysis. (3) Hypotension Current Visit: Yes Status: Acute Plan to address problem: blood pressure still running on low side. . Blood pressure 92/66 (4) UGIB (upper gastrointestinal bleed) Current Visit: Yes Status: Acute Plan to address problem: Management as per [employer] Operations Supervisor. (5) Acute blood loss anemia Current Visit: No Status: Acute Plan to address problem: Management as per primary care. (6) CAD (coronary artery disease) Current Visit: Yes Status: Chronic Qualifiers: Coronary Disease-Associated Artery/Lesion type: [place] artery Plan to address problem: Management as per cardiology. (7) History of mitral valve replacement with bioprosthetic valve Current Visit: Yes Status: Chronic Plan to address problem: Management as per cardiology. (8) Moderate to severe pulmonary hypertension Current Visit: Yes Status: Chronic Plan to address problem: Likely secondary to cardiac problems. Also need pulmonary work up as out patient Like PFTs etc. Subjective Date of service: 01/14/18 Principal diagnosis: Acute GI bleeding; Acute Hypoxemic Resp Failure; Left pleural effusion Interval history: Patient sleeping at this time.Patient is on 5 litres O2 via nasal canula.Oe saturation 99%.No acute respiratory distress, Objective Vital Signs - 12hr 01/14/18 01/14/18 01/14/18 08:00 08:48 08:52 Temperature 97.6 F Pulse Rate 85 Pulse Rate [ 118 H 117 H Anterior Bilateral Throughout] Respiratory 26 H Rate Respiratory 24 22 Rate [Anterior Bilateral Throughout] Respiratory Rate [denies pain] Blood Pressure 92/66 [Right] O2 Sat by Pulse 90 99 Oximetry 01/14/18 01/14/18 01/14/18 10:00 13:44 13:46 Temperature Pulse Rate 122 H Pulse Rate [ 110 H 110 H Anterior Bilateral Throughout] Respiratory Rate Respiratory 18 20 Rate [Anterior Bilateral Throughout] Respiratory 20 Rate [denies pain] Blood Pressure [Right] O2 Sat by Pulse Oximetry Constitutional: no acute distress, alert Eyes: non-icteric ENT: oropharynx moist, other (mallampati 2) Neck: supple, no lymphadenopathy, no JVD, other (no thyromegaly) Effort: mildly labored Ascultation: Bilateral: diminished breath sounds (bases), rales Percussion: Bilateral: not dull Cardiovascular: regular rate and rhythm, murmur noted, other (no rubs) Gastrointestinal: normoactive bowel sounds, soft, non-tender, non-distended, other (No HSM) Integumentary: other (poor turgor) Extremities: no cyanosis, pulses normal, no ischemia or petechiae, edema (1+ bilaterally) Neurologic: normal mental status, non-focal exam, pupils equal and round, motor strength normal and Psychiatric: depressed CBC and BMP: 01/14/18 11:21 01/14/18 11:21 ABG, PT/INR, D-dimer: ABG POC ABG pH 7.480 (7.35-7.45) H 01/07/18 15:41 POC ABG pCO2 26.4 (35-45) L 01/07/18 15:41 POC ABG pO2 47 (80-105) L 01/07/18 15:41 POC ABG HCO3 19.7 01/07/18 15:41 POC ABG Total CO2 20 01/07/18 15:41 POC ABG O2 Sat 86 01/07/18 15:41 PT/INR, D-dimer PT 17.6 Sec. (12.2-14.9) H 12/26/17 04:20 INR 1.36 (0.87-1.13) H 12/26/17 04:20 Abnormal lab findings: Abnormal Labs 12/23/17 12/23/17 12/23/17 20:00 20:00 20:00 WBC RBC 2.43 L Hgb 6.6 L Hct 21.1 L MCV MCH 27 L MCHC 31 L RDW 18.6 H Plt Count Lymph % (Auto) 11.0 L [place] % (Auto) 10.5 H Lymph # 0.9 L [place] # 0.9 H Seg Neutrophils % 76.6 H PT INR POC ABG pH POC ABG pCO2 POC ABG pO2 Sodium 129 L Potassium 3.3 L Chloride 90.9 L Carbon Dioxide BUN 32 H Creatinine Glucose 116 H POC Glucose Calcium Total Bilirubin 3.80 H Direct Bilirubin 2.8 H AST 56 H NT-Pro-B Natriuret Pep Total Protein 6.2 L Albumin 2.6 L Hepatitis C Antibody Crossmatch 12/23/17 12/23/17 12/24/17 20:40 20:56 00:30 WBC RBC Hgb Hct MCV MCH MCHC RDW Plt Count Lymph % (Auto) [place] % (Auto) Lymph # [place] # Seg Neutrophils % PT 28.3 H INR 2.46 H POC ABG pH POC ABG pCO2 POC ABG pO2 Sodium Potassium Chloride Carbon Dioxide BUN Creatinine Glucose POC Glucose Calcium Total Bilirubin Direct Bilirubin AST NT-Pro-B Natriuret Pep 4304 H Total Protein Albumin Hepatitis C Antibody Crossmatch See Detail 12/24/17 12/24/17 12/24/17 03:41 05:50 07:45 WBC RBC Hgb 8.4 L 8.1 L Hct 26.3 L 24.5 L MCV MCH MCHC RDW Plt Count Lymph % (Auto) [place] % (Auto) Lymph # [place] # Seg Neutrophils % PT INR POC ABG pH POC ABG pCO2 POC ABG pO2 Sodium Potassium Chloride Carbon Dioxide BUN Creatinine Glucose POC Glucose 144 H Calcium Total Bilirubin Direct Bilirubin AST NT-Pro-B Natriuret Pep Total Protein Albumin Hepatitis C Antibody Crossmatch 12/24/17 12/25/17 12/25/17 12:18 04:45 04:45 WBC RBC 2.70 L Hgb 7.5 L Hct 23.1 L MCV MCH MCHC RDW 17.9 H Plt Count Lymph % (Auto) 4.8 L [place] % (Auto) 13.5 H Lymph # 0.4 L [place] # 1.3 H Seg Neutrophils % 81.5 H PT INR POC ABG pH POC ABG pCO2 POC ABG pO2 Sodium 136 L D Potassium Chloride Carbon Dioxide BUN Creatinine Glucose 107 H POC Glucose 111 H Calcium Total Bilirubin Direct Bilirubin AST NT-Pro-B Natriuret Pep Total Protein Albumin Hepatitis C Antibody Crossmatch 12/25/17 12/25/17 12/26/17 04:45 04:45 04:20 WBC RBC 3.09 L Hgb 8.6 L Hct 26.8 L MCV MCH MCHC RDW 18.0 H Plt Count Lymph % (Auto) 6.9 L [place] % (Auto) 10.0 H Lymph # 0.6 L [place] # 0.9 H Seg Neutrophils % 82.1 H PT 18.2 H INR 1.42 H POC ABG pH POC ABG pCO2 POC ABG pO2 Sodium Potassium Chloride Carbon Dioxide BUN Creatinine Glucose POC Glucose Calcium Total Bilirubin Direct Bilirubin AST NT-Pro-B Natriuret Pep Total Protein Albumin Hepatitis C Antibody Reactive A Crossmatch 12/26/17 12/27/17 12/27/17 04:20 14:25 14:25 WBC RBC 3.11 L Hgb 8.7 L Hct 26.5 L MCV MCH MCHC RDW 18.3 H Plt Count Lymph % (Auto) [place] % (Auto) Lymph # [place] # Seg Neutrophils % PT 17.6 H INR 1.36 H POC ABG pH POC ABG pCO2 POC ABG pO2 Sodium 135 L Potassium 3.4 L Chloride Carbon Dioxide BUN Creatinine Glucose 132 H POC Glucose Calcium Total Bilirubin Direct Bilirubin AST NT-Pro-B Natriuret Pep Total Protein Albumin Hepatitis C Antibody Crossmatch 12/28/17 12/30/17 12/30/17 14:03 05:50 05:50 WBC RBC 2.85 L Hgb 7.8 L Hct 24.1 L MCV MCH 27 L MCHC RDW 17.3 H Plt Count Lymph % (Auto) 5.3 L [place] % (Auto) 11.2 H Lymph # 0.5 L [place] # 1.0 H Seg Neutrophils % 82.1 H PT INR POC ABG pH POC ABG pCO2 POC ABG pO2 Sodium 135 L 132 L Potassium Chloride 96.7 L Carbon Dioxide BUN Creatinine 0.7 L 0.7 L Glucose POC Glucose Calcium 8.1 L Total Bilirubin 2.60 H Direct Bilirubin AST NT-Pro-B Natriuret Pep 5482 H Total Protein 5.4 L Albumin 2.4 L Hepatitis C Antibody Crossmatch 12/31/17 01/04/18 01/04/18 05:17 05:12 05:12 WBC RBC 2.97 L Hgb 8.0 L 7.8 L Hct 24.2 L 24.9 L MCV MCH 26 L MCHC 31 L RDW 18.3 H Plt Count 137 L Lymph % (Auto) 8.3 L [place] % (Auto) 14.0 H Lymph # 0.7 L [place] # 1.1 H Seg Neutrophils % 75.8 H PT INR POC ABG pH POC ABG pCO2 POC ABG pO2 Sodium 135 L Potassium Chloride Carbon Dioxide BUN Creatinine 0.6 L Glucose POC Glucose Calcium Total Bilirubin Direct Bilirubin AST NT-Pro-B Natriuret Pep Total Protein Albumin Hepatitis C Antibody Crossmatch 01/05/18 01/06/18 01/07/18 15:31 05:43 06:08 WBC RBC Hgb 8.4 L 8.2 L 7.6 L Hct 26.4 L 25.7 L 23.9 L MCV MCH MCHC RDW Plt Count Lymph % (Auto) [place] % (Auto) Lymph # [place] # Seg Neutrophils % PT INR POC ABG pH POC ABG pCO2 POC ABG pO2 Sodium Potassium Chloride Carbon Dioxide BUN Creatinine Glucose POC Glucose Calcium Total Bilirubin Direct Bilirubin AST NT-Pro-B Natriuret Pep Total Protein Albumin Hepatitis C Antibody Crossmatch 01/07/18 01/07/18 01/08/18 06:08 15:41 06:05 WBC RBC Hgb 7.8 L Hct 24.6 L MCV MCH MCHC RDW Plt Count Lymph % (Auto) [place] % (Auto) Lymph # [place] # Seg Neutrophils % PT INR POC ABG pH 7.480 H POC ABG pCO2 26.4 L POC ABG pO2 47 L Sodium 133 L Potassium Chloride 97.9 L Carbon Dioxide BUN 7 L Creatinine 0.7 L Glucose POC Glucose Calcium Total Bilirubin Direct Bilirubin AST NT-Pro-B Natriuret Pep Total Protein Albumin Hepatitis C Antibody Crossmatch 01/09/18 01/10/18 01/12/18 05:04 09:17 09:57 WBC RBC Hgb 7.6 L 7.9 L Hct 24.3 L 24.8 L MCV MCH MCHC RDW Plt Count Lymph % (Auto) [place] % (Auto) Lymph # [place] # Seg Neutrophils % PT INR POC ABG pH POC ABG pCO2 POC ABG pO2 Sodium 130 L Potassium Chloride 94.3 L Carbon Dioxide BUN Creatinine Glucose 107 H POC Glucose Calcium Total Bilirubin Direct Bilirubin AST NT-Pro-B Natriuret Pep Total Protein Albumin Hepatitis C Antibody Crossmatch 01/14/18 01/14/18 11:21 11:21 WBC 17.7 H RBC 3.12 L Hgb 7.7 L Hct 25.3 L MCV 81 L MCH 25 L MCHC 30 L RDW 18.8 H Plt Count Lymph % (Auto) [place] % (Auto) Lymph # [place] # Seg Neutrophils % PT INR POC ABG pH POC ABG pCO2 POC ABG pO2 Sodium 130 L Potassium Chloride 92.4 L Carbon Dioxide 19 L BUN 22 H Creatinine Glucose 40 L POC Glucose Calcium Total Bilirubin Direct Bilirubin AST NT-Pro-B Natriuret Pep Total Protein Albumin Hepatitis C Antibody Crossmatch Allied health notes reviewed: nursing
--- NOTE | 2018-01-14 13:49 | Progress Note ---
Assessment and Plan Assessment and plan: Acute hypoxic respiratory failure - Likely from underlying COPD with pleural effusion - repeat CXR following thoracentesis showed no pneumothorax - cont nebs, on [place] oxygen b/l pleural efusion L>R - s/p thoracentesis drained 1.5 L 12/29/17 and 1.1L 01/07/18 - cont on lasix Mitral valve stenosis with possible LV thrombus - Following evaluation at [facility] in 10/2017, he was felt not to be a candidate for transcatheter mitral valve replacement per [place] structural heart team. He was discharged home on Xarelto in setting of MS. - Per cardiology he is a poor candidate to start on AC for anemia and recent GI bleed, Now xarelto on hold GI bleed - s/p 3 units PRBC - EGD 12/25 showed two minute possible AVMs in 2nd portion, no active bleeding - colonoscopy postponded as patient back on levophed intermittently - plan for coloscopy outpt, advanced diet as tolerated - cont to follow h/h Hypotension secondary to GI bleed and dehydration - Started Levophed drip from ER, required intermittently - will cont on low dose midodrine Acute blood loss anemia, transfused, monitor H&H Pneumonia, likely aspiration - treated with IV Levaquin, Zosyn, negative blood cultures - stopped abx 12/30/17 Chronic CHF, diastolic dysfunction, stable - monitor volume status, Ef 45-50% - started on diuretic by cardiology, cont to monitor Hypokalemia, replete and monitor as needed Hepatitis C, need outpt follow up GERD, PPI DVT Px - SCD Disposition: Pending their approval for hospice placement Overall poor prognosis. Pt has multiple chronic comorbidities, including heart failure, severe pulmonary HTN, mod to severe mitral stenosis, and has been deemed inoperable from a cardiac standpoint. He does not appear to be clinically improving despite medical management. Therefore, hospice care is highly recommended for this patient at this time. [facility] History Interval history: Patient was seen and evaluated this morning, no new complaints. Hospitalist Physical - Physical exam Narrative exam: Not in cardiopulmonary distress. The patient appeared well nourished and normally developed. Vital signs as documented. Head exam is unremarkable. No scleral icterus . Neck is without jugular venous distension, thyromegaly, or carotid bruits. Lungs are decreased air entry on the bibasilar area. Cardiac exam reveals regular rate and Rhythm. Abdominal exam reveals normal bowel sounds, no masses, no organomegaly and no aortic enlargement. Extremities are nonedematous and both femoral and pedal pulses are normal. HOUSEKEEPING CLEANER: Alert and oriented 3. No focal weakness. - Constitutional Vitals: Temp Pulse Resp BP Pulse Ox 97.6 F 122 H 20 92/66 99 01/14/18 08:00 01/14/18 10:00 01/14/18 10:00 01/14/18 08:00 01/14/18 08:48 General appearance: Present: mild distress Results - Labs CBC & Chem 7: 01/14/18 11:21 01/14/18 11:21 Labs: Laboratory Last Values WBC 17.7 K/mm3 (4.5-11.0) H 01/14/18 11:21 RBC 3.12 M/mm3 (3.65-5.03) L 01/14/18 11:21 Hgb 7.7 gm/dl (11.8-15.2) L 01/14/18 11:21 Hct 25.3 % (35.5-45.6) L 01/14/18 11:21 MCV 81 fl (84-94) L 01/14/18 11:21 MCH 25 pg (28-32) L 01/14/18 11:21 MCHC 30 % (32-34) L 01/14/18 11:21 RDW 18.8 % (13.2-15.2) H 01/14/18 11:21 Plt Count 300 K/mm3 (140-440) 01/14/18 11:21 Lymph % (Auto) 8.3 % (13.4-35.0) L 01/04/18 05:12 [place] % (Auto) 14.0 % (0.0-7.3) H 01/04/18 05:12 Eos % (Auto) 0.7 % (0.0-4.3) 01/04/18 05:12 Baso % (Auto) 1.2 % (0.0-1.8) 01/04/18 05:12 Lymph # 0.7 K/mm3 (1.2-5.4) L 01/04/18 05:12 [place] # 1.1 K/mm3 (0.0-0.8) H 01/04/18 05:12 Eos # 0.1 K/mm3 (0.0-0.4) 01/04/18 05:12 Baso # 0.1 K/mm3 (0.0-0.1) 01/04/18 05:12 Seg Neutrophils % 75.8 % (40.0-70.0) H 01/04/18 05:12 Seg Neutrophils # 6.2 K/mm3 (1.8-7.7) 01/04/18 05:12 PT 17.6 Sec. (12.2-14.9) H 12/26/17 04:20 INR 1.36 (0.87-1.13) H 12/26/17 04:20 POC ABG pH 7.480 (7.35-7.45) H 01/07/18 15:41 POC ABG pCO2 26.4 (35-45) L 01/07/18 15:41 POC ABG pO2 47 (80-105) L 01/07/18 15:41 POC ABG HCO3 19.7 01/07/18 15:41 POC ABG Total CO2 20 01/07/18 15:41 POC ABG O2 Sat 86 01/07/18 15:41 POC ABG Base Excess -4 01/07/18 15:41 FiO2 32 % 01/07/18 15:41 Sodium 130 mmol/L (137-145) L 01/14/18 11:21 Potassium 4.7 mmol/L (3.6-5.0) D 01/14/18 11:21 Chloride 92.4 mmol/L (98-107) L 01/14/18 11:21 Carbon Dioxide 19 mmol/L (22-30) L 01/14/18 11:21 Anion Gap 23 mmol/L 01/14/18 11:21 BUN 22 mg/dL (9-20) H 01/14/18 11:21 Creatinine 1.1 mg/dL (0.8-1.5) 01/14/18 11:21 Estimated GFR > 60 ml/min 01/14/18 11:21 BUN/Creatinine Ratio 20 % 01/14/18 11:21 Glucose 40 mg/dL (75-100) L 01/14/18 11:21 POC Glucose 111 (70-105) H 12/24/17 12:18 Calcium 8.7 mg/dL (8.4-10.2) 01/14/18 11:21 Total Bilirubin 2.60 mg/dL (0.1-1.2) H 12/30/17 05:50 Direct Bilirubin 2.8 mg/dL (0-0.2) H 12/23/17 20:00 Indirect Bilirubin 1.0 mg/dL 12/23/17 20:00 AST 29 units/L (5-40) 12/30/17 05:50 ALT 16 units/L (7-56) 12/30/17 05:50 Alkaline Phosphatase 100 units/L (35-129) 12/30/17 05:50 NT-Pro-B Natriuret Pep 5482 pg/mL (0-900) H 12/28/17 14:03 Total Protein 5.4 g/dL (6.3-8.2) L 12/30/17 05:50 Albumin 2.4 g/dL (3.9-5) L 12/30/17 05:50 Albumin/Globulin Ratio 0.8 % 12/30/17 05:50 Fluid Type Thoracentesis 12/29/17 Unknown Fluid Color Straw 12/29/17 Unknown Fluid Appearance Hazy 12/29/17 Unknown Fluid WBC 30 /mm3 12/29/17 Unknown Fluid RBC 355 /mm3 12/29/17 Unknown Fluid Seg Neutrophils 23.0 % 12/29/17 Unknown Fluid Lymphocytes 42.0 % 12/29/17 Unknown Fluid Reactive Lymphs Not Reportable 12/29/17 Unknown Fluid Monocytes 35.0 % 12/29/17 Unknown Fluid Eosinophils Not Reportable 12/29/17 Unknown Fluid Basophils Not Reportable 12/29/17 Unknown Fluid Albumin 0.3 g/dL 12/29/17 Unknown Fluid LDH 32 12/29/17 Unknown Digoxin 1.3 ng/mL (0.9-2.0) 01/06/18 05:43 Hepatitis A IgM Ab Non-reactive (NonReactive) 12/25/17 04:45 Hep Bs Antigen Non-reactive (Negative) 12/25/17 04:45 Hep B Core IgM Ab Non-reactive (NonReactive) 12/25/17 04:45 Hepatitis C Antibody Reactive (NonReactive) A 12/25/17 04:45 Hepatitis C Genotype Not detected 12/25/17 05:10 Blood Type B POSITIVE 12/23/17 20:40 Antibody Screen Negative 12/23/17 20:40 Crossmatch See Detail 12/23/17 20:40
[2018-01-14 22:27] VITALS: BP 97/61
[2018-01-15] MEDS ORDERED: SODIUM BICARBONATE IV ONE ×2 (08:12→08:15)
[2018-01-15] MEDS ORDERED: ADRENALIN ONE ×2 (08:12→08:15)
--- NOTE | 2018-01-15 08:40 | Event Note ---
Date: 01/15/18 Patient was found unresponsive by the nursing staff at 8:12 by the nursing staff and code blue was called and patient was coded according to ACLS protocol , but despite that the patient at 8:26. Patient was in asystole. Patient doesn't have next of kin documented in the chart and i tried to contact his roommate many times unsuccessfully.
--- NOTE | 2018-01-15 08:41 | Discharge Summary ---
Providers - Providers Date of Admission: 12/24/17 03:39 Attending physician: KIRK KINSEY MD 12/24/17 02:45 Consult to Physician [CONS] Routine Comment: Consulting Provider: NERI OCAMPO Physician Instructions: Reason For Exam: cc 12/24/17 04:51 Consult to Physician [CONS] Routine Comment: Consulting Provider: ELIZABETH WILLSON Physician Instructions: Reason For Exam: gib 12/28/17 18:33 Physical Therapy Evaluation and Treat [CONS] Routine Comment: Reason For Exam: debility 12/30/17 12:59 Consult to Physician [CONS] Routine Comment: Consulting Provider: CLIFF MORA Physician Instructions: Reason For Exam: Anticoagulation recommendation 12/30/17 16:22 Physical Therapy Evaluation and Treat [CONS] Routine Comment: Reason For Exam: physical debility Primary care physician: HEADSTART TEACHER Hospitalization Reason for admission: GI bleeding Condition: Stable Hospital course: Admission H/P 67-year-old woman with a history of hypertension, CHF, reflux, hepatitis C, AVMs brought to the emergency room for evaluation of melena. The patient was a very poor historian, also complaining of lower abdominal pain and very difficult to elicit the rest of the history. He denies NSAID use. He was just discharged from the hospital on December 09 for GI bleed, he was restarted back on anticoagulation at discharge. He has a cough productive of light yellow sputum. Acute hypoxic respiratory failure; from underlying COPD with pleural effusion; patient was treated appropriately for COPD. Bilateral pleural efusion Left > Right; thoracentesis was done and drained 1.5 L 12/29/17 and 1.1L 01/07/18, and patient was on Lasix. Mitral valve stenosis with possible LV thrombus; Following evaluation at [facility] in 10/2017, he was felt not to be a candidate for transcatheter mitral valve replacement per [place] structural heart team. He was discharged home on Xarelto in setting of MS. Per [facility] cardiology he was a poor candidate to start on AC for anemia and recent GI bleed, and D/Greg xarelto. GI bleed anemia and transfused 3 units PRBC; EGD 12/25 showed two minute possible AVMs in 2nd portion, no active bleeding Hypotension secondary to GI bleed and dehydration; he was treated with levophed while in the ICU and was treated with midodrine Pneumonia, likely aspiration was treated with IV antibiotics. Chronic CHF, diastolic dysfunction, EF 40-45% Chronic Hepatitis C . Pt has multiple chronic comorbidities, including heart failure, severe pulmonary HTN, mod to severe mitral stenosis, and has been deemed inoperable from a cardiac standpoint. He does not appear to be clinically improving despite medical management. I have communicated with the patient about his prognosis despite that the patient was full code. The plan was to send to Hospice care, and [facility] but they said they going to contact me. Befor they contact me the patient went into asystole and code rosie was called and coded according with ACLS protocol but despite the effort he . Disposition: DC-20 Time spent for discharge: 25 minutes - Discharge Diagnoses (1) Acute blood loss anemia Status: Acute (2) Acute on chronic diastolic HF (heart failure) Status: Acute (3) Acute renal insufficiency Status: Acute (4) Anemia Status: Acute Qualifiers: Anemia type: iron deficiency Iron deficiency anemia type: chronic blood loss Qualified Code(s): D50.0 - Iron deficiency anemia secondary to blood loss (chronic) (5) Dizziness Status: Acute (6) Elevated LFTs Status: Acute (7) GI bleed Status: Acute (8) Hypokalemia Status: Acute (9) Hyponatremia Status: Acute (10) Hypotension Status: Acute (11) Lactic acidosis Status: Acute (12) Melena Status: Acute (13) Pleural effusion Status: Acute (14) CAD (coronary artery disease) Status: Chronic Qualifiers: Coronary Disease-Associated Artery/Lesion type: [place] artery (15) CHF (congestive heart failure) Status: Chronic Qualifiers: Heart failure type: combined systolic and diastolic (16) HTN (hypertension) Status: Chronic Qualifiers: Hypertension type: essential hypertension Qualified Code(s): I10 - Essential (primary) hypertension (17) History of mitral valve replacement with bioprosthetic valve Status: Chronic (18) Mitral stenosis Status: Chronic (19) Moderate to severe pulmonary hypertension Status: Chronic (20) Pulmonary embolism Status: Chronic Qualifiers: Acute cor pulmonale presence: without acute cor pulmonale Core Measure Documentation - Palliative Care Palliative Care/ Comfort Measures: Not Applicable (patient was ) - Core Measures Any of the following diagnoses?: none (Patient was .) Exam - Physical Exam Narrative exam: Patient was .. - Constitutional Vitals: Temp Pulse Resp BP Pulse Ox 98.2 F 122 H 20 97/61 100 01/14/18 19:17 01/14/18 22:00 01/14/18 21:40 01/14/18 19:17 01/14/18 22:51 Plan Follow up with: PRIMARY MD JONN [Primary Care Provider] - 3-5 Days
--- NOTE | 2018-01-17 19:12 | Death Note ---
Note Date of : 01/15/18 Time of : 08:26 - Preliminary Cause of (problem) (1) Acute blood loss anemia Preliminary cause of (2) Acute on chronic diastolic HF (heart failure) Preliminary cause of (3) Acute renal insufficiency Preliminary cause of (4) Anemia Qualifiers: Anemia type: iron deficiency Iron deficiency anemia type: chronic blood loss Qualified Code(s): D50.0 - Iron deficiency anemia secondary to blood loss (chronic) Preliminary cause of (5) Dizziness Preliminary cause of (6) Elevated LFTs Preliminary cause of (7) GI bleed Preliminary cause of (8) Hypokalemia Preliminary cause of (9) Hyponatremia Preliminary cause of (10) Hypotension Preliminary cause of (11) Lactic acidosis Preliminary cause of (12) Melena Preliminary cause of (13) Pleural effusion Preliminary cause of (14) CAD (coronary artery disease) Qualifiers: Coronary Disease-Associated Artery/Lesion type: [place] artery Preliminary cause of (15) CHF (congestive heart failure) Qualifiers: Heart failure type: combined systolic and diastolic Preliminary cause of (16) HTN (hypertension) Qualifiers: Hypertension type: essential hypertension Qualified Code(s): I10 - Essential (primary) hypertension Preliminary cause of (17) History of mitral valve replacement with bioprosthetic valve Preliminary cause of (18) Mitral stenosis Preliminary cause of (19) Moderate to severe pulmonary hypertension Preliminary cause of (20) Pulmonary embolism Qualifiers: Acute cor pulmonale presence: without acute cor pulmonale Preliminary cause of
== END 2018-01-15 12:31 | DRG 377 ==
LOC: ED 19:38 → CC1 12-24 03:39 → 4A 12-28 16:10
PROVIDERS: ADMIT Internal Medicine; ATTEND Internal Medicine
PROC: 02HV33Z Insertion of Infusion Device into Superior Vena Cava, Percutaneous Approach (ICD-10-PCS; 2017-12-23)
PROC: B548ZZA Ultrasonography of Superior Vena Cava, Guidance (ICD-10-PCS; 2017-12-23)
PROC: 30233L1 Transfusion of Nonautologous Fresh Plasma into Peripheral Vein, Percutaneous Approach (ICD-10-PCS; 2017-12-24)
PROC: 30233N1 Transfusion of Nonautologous Red Blood Cells into Peripheral Vein, Percutaneous Approach (ICD-10-PCS; 2017-12-24)
PROC: 30233K1 Transfusion of Nonautologous Frozen Plasma into Peripheral Vein, Percutaneous Approach (ICD-10-PCS; 2017-12-24)
PROC: 0DJ08ZZ Inspection of Upper Intestinal Tract, Via Natural or Artificial Opening Endoscopic (ICD-10-PCS; 2017-12-24)
PROC: BB4BZZZ Ultrasonography of Pleura (ICD-10-PCS; 2017-12-29)
PROC: 0W9B3ZZ Drainage of Left Pleural Cavity, Percutaneous Approach (ICD-10-PCS; 2017-12-29)
PROC: 0W993ZZ Drainage of Right Pleural Cavity, Percutaneous Approach (ICD-10-PCS; principal; 2018-01-07)
PROC: BB4BZZZ Ultrasonography of Pleura (ICD-10-PCS; 2018-01-07)
PROC: 4A033R1 Measurement of Arterial Saturation, Peripheral, Percutaneous Approach (ICD-10-PCS; 2018-01-07)
PROC: 5A09357 Assistance with Respiratory Ventilation, Less than 24 Consecutive Hours, Continuous Positive Airway Pressure (ICD-10-PCS; 2018-01-07)
PROC: 3E0234Z Introduction of Serum, Toxoid and Vaccine into Muscle, Percutaneous Approach (ICD-10-PCS; 2018-01-08)
PROC: 5A09357 Assistance with Respiratory Ventilation, Less than 24 Consecutive Hours, Continuous Positive Airway Pressure (ICD-10-PCS; 2018-01-13)
DX: K31.811 Angiodysplasia of stomach and duodenum with bleeding (principal); J18.9 Pneumonia, unspecified organism; J96.01 Acute respiratory failure with hypoxia; I50.43 Acute on chronic combined systolic (congestive) and diastolic (congestive) heart failure; J90 Pleural effusion, not elsewhere classified; D62 Acute posthemorrhagic anemia; E87.1 Hypo-osmolality and hyponatremia; I95.9 Hypotension, unspecified; E87.6 Hypokalemia; B19.20 Unspecified viral hepatitis C without hepatic coma; F10.10 Alcohol abuse, uncomplicated; Y90.0 Blood alcohol level of less than 20 mg/100 ml; J44.9 Chronic obstructive pulmonary disease, unspecified; E86.0 Dehydration; I27.81 Cor pulmonale (chronic); I05.0 Rheumatic mitral stenosis; I46.9 Cardiac arrest, cause unspecified; I27.20 Pulmonary hypertension, unspecified; I25.10 Atherosclerotic heart disease of native coronary artery without angina pectoris; N28.9 Disorder of kidney and ureter, unspecified; K44.9 Diaphragmatic hernia without obstruction or gangrene; Z53.9 Procedure and treatment not carried out, unspecified reason; F17.200 Nicotine dependence, unspecified, uncomplicated; I11.0 Hypertensive heart disease with heart failure; K21.9 Gastro-esophageal reflux disease without esophagitis; Z86.19 Personal history of other infectious and parasitic diseases; Z82.49 Family history of ischemic heart disease and other diseases of the circulatory system; Z95.4 Presence of other heart-valve replacement; Z79.899 Other long term (current) drug therapy; Z86.711 Personal history of pulmonary embolism; Z79.01 Long term (current) use of anticoagulants; Z91.14 Patient's other noncompliance with medication regimen; Z23 Encounter for immunization
CPT/HCPCS: 32555; 36415; 36430; 36600; 71045; 71046; 71275; 74176; 80048; 80053; 80074; 80162; 82040; 82803; 82962; 83605; 83880; 85014; 85018; 85025; 85027; 85610; 86850; 86900; 86901; 86920; 87040; 87116; 87517; 87902; 88112; 88305; 88341; 88342; 89051; 90732; 93005; 93010; 93308; 93321; 93325; 94640; 94660; 94760; C9113; J0171; J1720; J1940; J1956; J2250; J2405; J2543; J2704; J7030; J7040; J7050; P9016; P9017; Q9967